=== PATIENT | female | born 2000 | race Caucasian/White ===

== ENCOUNTER 2023-01-22 07:56 | Emergency (ER) | payer OTHER, SELFPAY ==
[2023-01-22 08:00] VITALS: BP 184/87; PULSE 56; RESP 20; TEMP 36.5; O2SAT 98; BMI 33.7
--- NOTE | 2023-01-22 08:15 | ED_ITS ---
HPI - Abdominal Pain General Chief Complaint: Abdominal Pain Stated Complaint: FLANK PAIN Time Seen by Provider: 01/22/23 08:10 Source: patient Mode of arrival: walk-in Limitations: no limitations History of Present Illness HPI narrative: 22-year-old female presents for left-sided abdominal pain. It began yesterday and she saw some blood in her urine yesterday. She believes she may be passing a kidney stone. No injury fever vomiting constipation or diarrhea. No dysuria. She has very minimal left flank pain. The pain is mild to moderate. Related Data Home Medications Medication Instructions Recorded Confirmed dextroamphetamine-amphetamine 15 15 mg PO BID 01/22/23 01/22/23 mg tablet Allergies Allergy/AdvReac Type Severity Reaction Status Date / Time codeine Allergy Severe Hives Verified 01/22/23 08:05 Review of Systems ROS Narrative A ten point review of systems is negative except as noted above. [facility] Medical History (Updated 01/22/23 @ 09:48 by Brody White MD) History of kidney stones ?Z87.442 - Personal history of urinary calculi (ICD-10) Social History Smoking status: Light tobacco smoker Exam Narrative Exam Narrative: Nurses note and vital signs reviewed and patient is not hypoxic. General: The patient appears well and in no apparent distress. Patient is resting comfortably on cart. Skin: Warm, dry, no pallor noted. There is no rash noted. Head: Normocephalic, atraumatic Eye: Normal conjunctiva, no drainage Ears, Nose, Mouth, and Throat: oral mucosa is moist. Nares patent. Cardiovascular: Regular Rate and Rhythm Respiratory: Patient is in no distress, no accessory muscle use, lungs are clear to auscultation, no wheezing, rales or rhonchi Back: non-tender, no CVA tenderness bilaterally to percussion. GI: no tenderness to palpation, no masses appreciated. No rebound, guarding, or rigidity noted. Musculoskeletal: The patient has no evidence of calf tenderness, no pitting edema, symmetrical pulses noted bilaterally Neurological: A&O, normal speech Psychiatric: Cooperative Constitutional Vital Signs, click to edit/add: Last Vital Signs Temp 97.7 F 01/22/23 08:00 Pulse 56 L 01/22/23 08:00 Resp 20 01/22/23 08:00 BP 184/87 H 01/22/23 08:00 Pulse Ox 98 01/22/23 08:00 O2 Del Method Room Air 01/22/23 08:00 Course Vital Signs Vital signs: Vital Signs Temperature 97.7 F 01/22/23 08:00 Pulse Rate 56 L 01/22/23 08:00 Respiratory Rate 20 01/22/23 08:00 Blood Pressure 184/87 H 01/22/23 08:00 Pulse Oximetry 98 01/22/23 08:00 Oxygen Delivery Method Room Air 01/22/23 08:00 Temperature 97.7 F 01/22/23 08:00 Pulse Rate 56 L 01/22/23 08:00 Respiratory Rate 20 01/22/23 08:00 Blood Pressure 184/87 H 01/22/23 08:00 Pulse Oximetry 98 01/22/23 08:00 Oxygen Delivery Method Room Air 01/22/23 08:00 MDM - Abdominal Pain MDM Narrative Medical decision making narrative: CT does not show any ureteral stones or hydronephrosis. She has punctate stones bilaterally and a 5 mm stone and then 8 mm stone in the left kidney. She's not . She is being discharged home and will follow-up with her urologist. Treatment diagnosis and follow-up were discussed with the patient. Differential Diagnosis Differential diagnosis: Likely abdominal pain, constipation, diverticulitis and gastroenteritis Lab Data Attestation: I reviewed the patient's lab results. Labs: Lab Results 01/22/23 Range/Units 08:10 Urine Color Lt. yellow (YELLOW) Urine Clarity Clear (CLEAR) Urine pH 6.0 (5.0-9.0) Ur Specific [place] 1.010 (1.005-1.025) Urine Protein Negative (NEG/TRACE) mg/dL Urine Glucose (UA) Negative (NEGATIVE) mg/dL Urine Ketones Negative (NEGATIVE) mg/dL Urine Occult Blood Moderate A (NEGATIVE) Urine Nitrite Negative (NEGATIVE) Urine Bilirubin Negative (NEGATIVE) Urine Urobilinogen 0.2 (0.2-1.0) EU/dL Ur Leukocyte Esterase Negative (NEGATIVE) Urine RBC 0-2 (0-2) #/HPF Urine WBC None seen (NONE SEEN) #/HPF Ur Squamous Epith Cells Rare (NONE/RARE) #/LPF Urine Crystals None seen (None Seen) #/HPF Urine Bacteria Trace A (NONE SEEN) #/HPF Urine Casts None seen (NONE SEEN) #/LPF Urine Mucus None seen (NONE SEEN) Urine HCG, Qual Negative (NEGATIVE) Imaging Data CT scan - abdomen: Radiologist's impression: Procedure: CT abdomen pelvis wo con EXAM: CT abdomen pelvis wo con HISTORY: left flank pain, r/o stone COMPARISON: CT abdomen and pelvis 12/22/2019.. TECHNIQUE: Axial soft tissue windows of the abdomen and pelvis with coronal and sagittal reformats. Findings: Lack of intravenous contrast limits evaluation. ABDOMEN: There is fatty infiltration of the liver. The gallbladder, spleen, pancreas, and adrenal glands are unremarkable. Punctate nonobstructing bilateral renal stones. In addition, within the lower pole of the left kidney there are nonobstructing 0.5 and 0.8 cm stones. No renal collecting system dilatation bilaterally. The bilateral ureters are nondilated. Evaluation of the bowel is limited given the absence of oral contrast. No bowel obstruction. The appendix is nondilated. The aorta is normal caliber. No enlarged abdominal lymph nodes or free abdominal fluid. Pelvis: Unremarkable bladder. The uterus is present and unremarkable within the limits of CT. No enlarged pelvic lymph nodes or free pelvic fluid. No aggressive sclerotic or lytic osseous lesions. IMPRESSION: 1. Nonobstructing bilateral renal stones. 2. Fatty liver. Electronically authenticated by: SVEN MARTIN Date: 01/22/2023 09:07 Discharge Plan Discharge Chief Complaint: Abdominal Pain Clinical Impression: Renal colic on left side Patient Disposition: Home, Self-Care Time of Disposition Decision: 09:48 Condition: Good Mode of Transportation: Private Vehicle Prescriptions / Home Meds: No Action dextroamphetamine-amphetamine 15 mg tablet 15 mg PO BID Instructions: Renal Colic (ED) Additional Instructions: Follow-up with Dr. Claros Stand Alone Forms: Portal Instructions Referrals: Leticia Young MD [Primary Care Provider] - 1 week
--- NOTE | 2023-01-22 08:24 | CT_ITS ---
The [address] [address] Patient Name: ABHI RYDER MRN: [id number] date: 2000 Sex: F Assigned Patient Location: ER Current Patient Location: ER Accession/Order Number: [id number] Exam Date: 01/22/2023 08:38 Report Date: 01/22/2023 09:07 At the request of: LULY NUNES Procedure: CT abdomen pelvis wo con EXAM: CT abdomen pelvis wo con HISTORY: left flank pain, r/o stone COMPARISON: CT abdomen and pelvis 12/22/2019.. TECHNIQUE: Axial soft tissue windows of the abdomen and pelvis with coronal and sagittal reformats. Findings: Lack of intravenous contrast limits evaluation. ABDOMEN: There is fatty infiltration of the liver. The gallbladder, spleen, pancreas, and adrenal glands are unremarkable. Punctate nonobstructing bilateral renal stones. In addition, within the lower pole of the left kidney there are nonobstructing 0.5 and 0.8 cm stones. No renal collecting system dilatation bilaterally. The bilateral ureters are nondilated. Evaluation of the bowel is limited given the absence of oral contrast. No bowel obstruction. The appendix is nondilated. The aorta is normal caliber. No enlarged abdominal lymph nodes or free abdominal fluid. Pelvis: Unremarkable bladder. The uterus is present and unremarkable within the limits of CT. No enlarged pelvic lymph nodes or free pelvic fluid. No aggressive sclerotic or lytic osseous lesions. CT/CT abdomen pelvis wo con IMPRESSION: 1. Nonobstructing bilateral renal stones. 2. Fatty liver. Electronically authenticated by: SVEN MARTIN Date: 01/22/2023 09:07
[2023-01-22 08:29] LABS: Bilirubin Urine NEGATIVE (NEGATIVE); Blood Urine MODERATE (NEGATIVE); Clarity Urine CLEAR (CLEAR); Color Urine LT. YELLOW (YELLOW); Glucose Urine UA NEGATIVE (NEGATIVE); Ketones Urine NEGATIVE (NEGATIVE); Leukocyte Esterase Urine NEGATIVE (NEGATIVE); Nitrite Urine NEGATIVE (NEGATIVE); Protein Urine NEGATIVE (NEG/TRACE); Urobilinogen Urine 0.2 EU/dL (0.2-1.0)
[2023-01-22 08:31] LABS: HCG Qualitative Urine* NEGATIVE (NEGATIVE)
[2023-01-22 08:50] LABS: Bacteria Urine TRACE #/HPF (NONE SEEN); Cast Seen? NONE SEEN #/LPF (NONE SEEN); Crystals Seen? None Seen #/HPF (None Seen); Mucus Urine NONE SEEN (NONE SEEN); RBC Urine 0-2 #/HPF (0-2); Squamous Epithelial Cell Urine RARE #/LPF (NONE/RARE); WBC Urine NONE SEEN #/HPF (NONE SEEN)
[2023-01-22 10:06] VITALS: BP 160/80
== END 2023-01-22 10:09 | disposition home or self-care (01) ==
PROVIDERS: Emergency Provider Emergency Medicine; PCP Family Medicine
DX: N23 Unspecified renal colic (principal); Z87.442 Personal history of urinary calculi; F17.200 Nicotine dependence, unspecified, uncomplicated
CPT/HCPCS: 74176; 81001; 84703; 99284

== ENCOUNTER 2023-01-23 19:28 | Emergency (ER) | payer OTHER, SELFPAY ==
[2023-01-23 19:46] VITALS: BP 142/93; PULSE 109; RESP 18; TEMP 36.6; O2SAT 98; BMI 33.8
--- NOTE | 2023-01-23 21:17 | ED.GENADUL1 ---
HPI - General Adult General Chief complaint: Headache Stated complaint: HEADACHE Time Seen by Provider: 01/23/23 19:32 Source: patient Mode of arrival: walk-in Limitations: no limitations History of Present Illness HPI narrative: Patient is a 22-year-old female who presents to the emergency department for a left frontal/temporal headache that began approximately 4 hours ago. She has a history of migraines and states the location of this headache is similar. She states she is more nauseous with this headache than she typically is. She has had no fevers, visual changes, peripheral paresthesias, neck pain. She denies possibility of . She was seen in this emergency department 2 days ago when she thought she was passing a kidney stone, she was not discharged home on any medications. She took ibuprofen prior to arrival without improvement. Related Data Home Medications Medication Instructions Recorded Confirmed dextroamphetamine-amphetamine 15 15 mg PO BID 01/22/23 01/22/23 mg tablet Previous Rx's Medication Instructions Recorded ketorolac 10 mg tablet 10 mg PO TID PRN pain #10 tabs 01/23/23 ondansetron 4 mg disintegrating 4 mg PO Q6H PRN nausea and 01/23/23 tablet vomiting #12 tabs Allergies Allergy/AdvReac Type Severity Reaction Status Date / Time codeine Allergy Severe Hives Verified 01/23/23 19:51 Review of Systems ROS Constitutional Denies: fever or chills Ears, nose, mouth, and throat Denies: throat pain or nasal congestion Respiratory Reports: cough Gastrointestinal Reports: nausea; Denies: vomiting Genitourinary Denies: painful urination Musculoskeletal Denies: back pain or neck pain Integumentary/Breast Denies: rash Neurological Reports: headache; Denies: numbness in extremities or weakness in extremities Hematologic/Lymphatic Denies: easy bruising PFSH PFS Medical History (Updated 01/23/23 @ 22:14 by DAKSHA Correa) History of kidney stones ?Z87.442 - Personal history of urinary calculi (ICD-10) Social History Smoking status: Unknown if ever smoked Exam Narrative Exam Narrative: Gen.: Awake, alert, in no distress Head: Normocephalic, atraumatic ENT: Moist mucous membranes; no nuchal rigidity Respiratory: No respiratory distress, lungs clear bilaterally Cardio: Regular rate and rhythm Extremities: Moves extremities equally Psych: Normal mood and affect Neuro: No focal neuro deficit Skin: Warm, dry, intact Constitutional Vital Signs, click to edit/add: Last Vital Signs Temp 97.8 F 01/23/23 19:46 Pulse 109 H 01/23/23 19:46 Resp 18 01/23/23 19:46 BP 142/93 H 01/23/23 19:46 Pulse Ox 98 01/23/23 19:46 O2 Del Method Room Air 01/23/23 19:46 Course Vital Signs Vital signs: Vital Signs Temperature 97.8 F 01/23/23 19:46 Pulse Rate 109 H 01/23/23 19:46 Respiratory Rate 18 01/23/23 19:46 Blood Pressure 142/93 H 01/23/23 19:46 Pulse Oximetry 98 01/23/23 19:46 Oxygen Delivery Method Room Air 01/23/23 19:46 Temperature 97.8 F 01/23/23 19:46 Pulse Rate 109 H 01/23/23 19:46 Respiratory Rate 18 01/23/23 19:46 Blood Pressure 142/93 H 01/23/23 19:46 Pulse Oximetry 98 01/23/23 19:46 Oxygen Delivery Method Room Air 01/23/23 19:46 Medical Decision Making MDM Narrative Medical decision making narrative: Patient was medicated with IV fluids, Reglan, Benadryl, Toradol. She was reevaluated and reports she is feeling better, she just feels tired from the medications. She tolerated water with no vomiting in the ER. She states she feels well enough to go home. She will be discharged home with Zofran and Toradol. Follow-up with PCP and return to the emergency department if symptoms change or worsen. Patient appears well-hydrated and nontoxic at discharge. Medical Records Medical records reviewed: Yes I reviewed the patient's medical records Discharge Plan Discharge Chief Complaint: Headache Clinical Impression: Headache Patient Disposition: Home, Self-Care Time of Disposition Decision: 22:13 Condition: Good Prescriptions / Home Meds: New ketorolac 10 mg tablet 10 mg PO TID PRN (Reason: pain) Qty: 10 0RF ondansetron 4 mg tablet,disintegrating 4 mg PO Q6H PRN (Reason: nausea and vomiting) Qty: 12 0RF No Action dextroamphetamine-amphetamine 15 mg tablet 15 mg PO BID Instructions: Acute Headache (DC) Stand Alone Forms: Portal Instructions Referrals: Leticia Young MD [Primary Care Provider] - 1 week Discharge Date/Time: 01/23/23 22:37
[2023-01-23] MEDS: DIPHENHYDRAMINE HCL 50 MG/ML (1ML) VIAL 25 MG IV (21:46)
[2023-01-23] MEDS: 0.9 % SODIUM CHLORIDE 1,000 ML 999 ML IV (21:46)
[2023-01-23] MEDS: KETOROLAC TROMETHAMINE 30 MG/ML VIAL IVP (21:46)
[2023-01-23] MEDS: METOCLOPRAMIDE HCL 10 MG/2 ML VIAL INJ (21:47)
== END 2023-01-23 22:37 | disposition home or self-care (01) ==
PROVIDERS: Emergency Provider Emergency Medicine; PCP Family Medicine
DX: R51.9 Headache, unspecified (principal); Z79.899 Other long term (current) drug therapy; Z87.442 Personal history of urinary calculi
CPT/HCPCS: 96372; 96374; 96375; 99284

== ENCOUNTER 2023-03-19 08:03 | Outpatient (OUT) | payer OTHER, SELFPAY ==
--- OUTSIDE RECORDS SUMMARY | 2023-03-19 08:05 | XMS_ITS | CCD ---
Author Name Unknown Address [facility] [address] [place] [id number] Organization [facility] Care Team Providers Care Crystalizer Tender Name Role Phone DenaColumba Unavailable ANTOINE CASTELLANOS Attending Unavailable Leticia Dill Unavailable LETICIA DILL Primary Care Unavailable PREET, DR SIMRAN Alexander Consulting Unavailabl e REINECK, DR SIMRAN Alexander Attending Unavailabl e PREET, DR SIMRAN Alexander Admitting Unavailabl e LETICIA DILL E Primary Care Unavailable JOSE ., DR GAIL Mcwilliams Attending Unavailable JOSE ., DR GAIL Mcwilliams Admitting Unavailable FITZGERALDRL ROGERS Consulting Unavailable FUENTES LETICIA E Admitting Unavailable FUENTES LETICIA E Primary Care Unavailable LETICIA DILL Consulting Unavailable LETICIA DILL Attending Unavailable Perry ESCOBAR Attending Unavailable Allergies Allergy Classification Reported Allergen(s) Allergy Type Date of Onset Reaction(s) Facility (17 sources) Codeine; Translations: [CODEINE] Drug Allergy 9 puffy et itchy [facility] Repository (1 source) Codeine Drug Allergy 5 [facility] Repository (1 source) patient allergy list reviewed by nurse or physicia Propensity to adverse reactions 8 Comment:Done [employer] Other (1 source) Allergies Reconciled Propensity to adverse reactions Unknown [employer] Other Medications Current Medications Medication Drug Class(es) Dates Sig (Normalized) Sig (Original) Amphetamine / Dextroamphetamine (5 sources) Central Nervous System Stimulant Adderall XR Active amphetamine aspartate 3.75 mg / amphetamine sulfate 3.75 mg / dextroamphetamine saccharate 3.75 mg / dextroamphetamine sulfate 3.75 mg oral tablet (16 sources) Central Nervous System Stimulant Start: 03-11-2023 take 1 tablet by mouth every twelve hours Adderall 15 MG 1 tablet Orally Twice a day for 30 days Feb, Active Start: 01-29-2023 take 1 tablet by umesh every twelve hours Adderall 15 MG 1 tablet Orally Twice a day for 30 days Jan, Active Start: 11-16-2022 take 1 tablet by umesh th every twelve hours Adderall 15 MG 1 tablet Orally Twice a day for 30 days Oct, Active Start: 07-18-2022 take 1 tablet by umesh th every twelve hours Adderall 10 MG 1 tablet Orally Twice a day for 30 days June, Active Start: 06-15-2022 take 1 tablet by umesh th every twelve hours Adderall 10 MG 1 tablet Orally Twice a day for 30 days May, Active Start: 05-18-2022 take 1 tablet by umesh th every twelve hours Adderall 10 MG 1 tablet Orally Twice a day for 30 days Apr, Active Start: 04-10-2022 take 1 capsule by mo [facility] every twenty-four hours Adderall XR 25 MG 1 capsule Orally Once a day for 30 days Mar, Active famotidine 20 mg oral tablet (4 sources) Histamine-2 Receptor Antagonist Start: 01-29-2023 take 1 tablet by mouth every twenty-four hours Famotidine 20 MG 1 tablet at bedtime as needed Orally Once a day for 30 day(s) Jan, Active ibuprofen 800 mg oral tablet (10 sources) Nonsteroidal Anti-inflammatory Drug take 1 tablet by mouth every eight hours at mealtime Ibuprofen 800 MG TAKE 1 TABLET BY MOUTH EVERY 8 HOURS WITH FOOD OR MILK NEEDED 30 for 30 Active 24 hr metoprolol succinate 25 mg extended release oral tablet (4 sources) beta-Adrenergic Ravin Start: 01-29-2023 take 1 tablet by mouth every twenty-four hours Metoprolol Succinate ER 25 MG 1 tablet Orally Once a day for 30 day(s) Jan, Active omeprazole 20 mg delayed release oral capsule (4 sources) Proton Pump Inhibitor Start: 12-07-2022 take 1 capsule by mouth once daily Omeprazole 20 MG 1 capsule 30 minutes before morning meal Orally Once a day for 30 day(s) Nov, Active SUMAtriptan 50 mg oral tablet (5 sources) Serotonin-1b and Serotonin-1d Receptor Agonist Start: 06-15-2022 take 1 tablet by mouth every two hours as needed, then take 1 tablet by mouth twice daily as needed SUMAtriptan Succinate 50 MG 1 tablet at least 2 hours between doses as needed Orally Twice a day prn for 30 days May, Active SUMAtriptan Succ inate 50 MG TAKE 1 TABLET BY MOUTH ONCE DAILY. MAY REPEAT AT LEAST 2 HOURS BETWEEN DOSES NEEDED for 30 Active tiZANidine 4 mg oral tablet (6 sources) Central alpha-2 Adrenergic Agonist Start: 05-18-2022 take 1 tablet by mouth once daily at bedtime as needed tiZANidine HCl 4 MG 1 tablet as needed Orally qhs for 30 days Apr, Active Problems Active Problems Problem Classification Problem Date Documented Date Episodic/Chronic Abdominal pain (15 sources) Abdominal pain; Translations: [Unspecified abdominal pain] Onset: 02-28-2017 Episodic Anxiety disorders (13 sources) Mixed anxiety and depressive disorder; Translations: [Anxiety disorder, unspecified] Resolved: 11-17-2020 Chronic Attention-deficit, conduct, and disruptive behavior disorders (1 source) Attention deficit hyperactivity disorder; Translations: [Attention-deficit hyperactivity disorder, unspecified type] Onset: 02-13-2013 Chronic Blindness and vision defects (1 source) Visual impairment; Translations: [Unspecified visual loss] Onset: 12-26-2016 Chronic Blindness and vision defects (1 source) Unspecified visual disturbance Episodic Calculus of urinary tract (17 sources) Kidney stone; Translations: [Calculus of kidney] Episodic Conditions associated with dizziness or vertigo (3 sources) Dizziness and giddiness; Translations: [Dizziness and giddiness] Onset: 02-01-2022 Episodic Contraceptive and procreative management (2 sources) Surveillance of depot contraception done; Translations: [Encounter for surveillance of injectable contraceptive] Episodic Disorders usually diagnosed in infancy, childhood, or adolescence (16 sources) Adult attention deficit hyperactivity disorder ; Translations: [Other specified behavioral and emotional disorders with onset usually occurring in childhood and adolescence] Chronic Early or threatened labor (1 source) Premature/false labor; Translations: [ labor without delivery, unspecified trimester] Episodic Esophageal disorders (19 sources) Gastroesophageal reflux disease; Translations: [Gastro-esophageal reflux disease without esophagitis] Onset: 12-03-2017 Chronic Essential hypertension (6 sources) Essential hypertension; Translations: [Essential (primary) hypertension] Chronic Genitourinary symptoms and ill-defined conditions (4 sources) Dysuria; Translations: [Dysuria] Resolved: 11-17-2020 Episodic Headache; including migraine (4 sources) Headache; including migraine; Translations: [HEADACHE UNSPECIFIED] Onset: 08-31-2021 Hypertension complicating ; childbirth and the puerperium (1 source) Pre-eclampsia; Translations: [Mild to moderate pre-eclampsia, unspecified trimester] Episodic Inflammation; infection of eye (except that caused by tuberculosis or sexually transmitteddisease) (3 sources) Conjunctivitis; Translations: [Unspecified conjunctivitis] Onset: 03-05-2017 Resolved: 10-01-2018 Episodic Inflammatory diseases of female pelvic organs (1 source) Acute vaginitis; Translations: [Acute vaginitis] Episodic Menstrual disorders (20 sources) Menorrhagia; Translations: [Excessive and frequent menstruation with regular cycle] Onset: 05-18-2022 Resolved: 11-17-2020 Chronic Other aftercare (1 source) Long-term current use of drug therapy; Translations: [Other terminal clerk (current) drug therapy] Episodic Other circulatory disease (1 source) Elevated blood-pressure reading without diagnosis of hypertension; Translations: [Elevated blood-pressure reading, without diagnosis of hypertension] Episodic Other complications of ; puerperium affecting management of mother (1 source) Complication of the puerperium; Translations: [Other complications of the puerperium, not elsewhere classified] Episodic Other complications of (1 source) Vomiting of ; Translations: [Vomiting of , unspecified] Episodic Other complications of (1 source) Urinary tract infection in ; Translations: [Unspecified infection of urinary tract in , unspecified trimester] Episodic Other complications of (1 source) Finding related to ; Translations: [Other specified related conditions, unspecified trimester] Episodic Other complications of (1 source) Other maternal infectious and parasitic diseases complicating , unspecified trimester; Translations: [Other maternal infectious and parasitic diseases complicating , unspecified trimester] Episodic Other ear and sense organ disorders (1 source) Impacted cerumen; Translations: [Impacted cerumen, bilateral] Episodic Other female genital disorders (1 source) Noninflammatory disorder of the vagina; Translations: [Other specified noninflammatory disorders of vagina] Episodic Other nutritional; endocrine; and metabolic disorders (2 sources) Obese class I; Translations: [Body mass index (BMI) 31.0-31.9, adult] Chronic Other nutritional; endocrine; and metabolic disorders (1 source) Body mass index 30+ - obesity; Translations: [Body mass index (BMI) 30.0-30.9, adult] Chronic Other nutritional; endocrine; and metabolic disorders (1 source) Body mass index 25-29 - overweight; Translations: [Body mass index (BMI) 29.0-29.9, adult] Episodic Other and delivery including normal (6 sources) Delivery normal; Translations: [Encounter for full-term uncomplicated delivery] Resolved: 10-01-2018 Episodic Other screening for suspected conditions (not mental disorders or infectious disease) (2 sources) Urine test negative; Translations: [Encounter for test, result negative] Episodic Other upper respiratory infections (5 sources) Acute pharyngitis, unspecified; Translations: [Acute pharyngitis] Onset: 02-13-2013 Resolved: 02-09-2021 Episodic Residual codes; unclassified (1 source) Gestation period, 36 weeks; Translations: [36 weeks gestation of ] Episodic Residual codes; unclassified (1 source) Gestation period, 34 weeks; Translations: [34 weeks gestation of ] Episodic Residual codes; unclassified (1 source) Gestation period, 35 weeks; Translations: [35 weeks gestation of ] Episodic Residual codes; unclassified (1 source) Gestation period, 11 weeks; Translations: [11 weeks gestation of ] Episodic Spondylosis; intervertebral disc disorders; other back problems (13 sources) Low back pain; Translations: [Lumbar pain] Onset: 04-08-2017 Episodic Substance-related disorders (1 source) Nicotine dependence, other tobacco product, uncomplicated; Translations: [NICOTINE DEPEND OTH TOB PROD UNCOMP] Onset: 09-04-2021 Chronic Superficial injury; contusion (1 source) Nonvenomous insect bite of trunk without infection; Translations: [Insect bite (nonvenomous) of abdominal wall, initial encounter] Episodic Syncope (11 sources) Syncope and collapse; Translations: [Syncope and collapse] Episodic Urinary tract infections (1 source) Urinary tract infectious disease; Translations: [Urinary tract infection, site not specified] Episodic Viral infection (1 source) Verruca vulgaris; Translations: [Other viral warts] Episodic Past or Other Problems Problem Classification Problem Date Documented Date Episodic/Chronic Administrative/social admission (1 source) Stress; Translations: [Other psychological or physical stress, not elsewhere classified] Onset: 02-28-2017 Episodic Headache; including migraine (1 source) Migraine with aura; Translations: [Migraine with aura, not intractable, without status migrainosus] Resolved: 11-17-2020 Chronic Headache; including migraine (1 source) Headache; Translations: [Headache] Onset: 12-26-2016 Episodic Hypertension complicating ; childbirth and the puerperium (1 source) Unspecified maternal hypertension, complicating the puerperium; Translations: [Unspecified maternal hypertension, complicating the puerperium] Resolved: 11-17-2020 Chronic Immunizations and screening for infectious disease (2 sources) Contact with and (suspected) exposure to other viral communicable diseases; Translations: [Sexually transmitted infectious disease] Onset: 02-09-2021 Resolved: 02-09-2021 Episodic Malaise and fatigue (1 source) Malaise and fatigue; Translations: [Other malaise and fatigue] Onset: 03-24-2014 Episodic Mycoses (1 source) Candidiasis; Translations: [Candidiasis, unspecified] Resolved: 08-20-2018 Episodic Other complications of (1 source) Complication occurring during ; Translations: [Other specified related conditions, second trimester] Resolved: 10-01-2018 Episodic Other connective tissue disease (1 source) Pain in forearm; Translations: [Pain in joint, forearm] Onset: 08-23-2017 Episodic Other female genital disorders (1 source) Abnormal uterine bleeding; Translations: [Abnormal uterine and vaginal bleeding, unspecified] Resolved: 11-17-2020 Chronic Other non-traumatic joint disorders (1 source) Arthralgia of the ankle and/or foot; Translations: [Pain in unspecified ankle and joints of unspecified foot] Onset: 07-21-2013 Episodic Other skin disorders (1 source) Acne vulgaris; Translations: [Acne vulgaris] Resolved: 11-17-2020 Episodic Other upper respiratory infections (1 source) Chronic sinusitis; Translations: [Chronic sinusitis, unspecified] Resolved: 11-17-2020 Chronic Residual codes; unclassified (1 source) Insomnia; Translations: [Insomnia, unspecified] Onset: 03-05-2017 Episodic Residual codes; unclassified (1 source) Gestation period, 15 weeks; Translations: [15 weeks gestation of ] Resolved: 07-23-2018 Episodic Residual codes; unclassified (1 source) Gestation period, 33 weeks; Translations: [33 weeks gestation of ] Resolved: 11-05-2018 Episodic Residual codes; unclassified (1 source) Gestation period, 29 weeks; Translations: [29 weeks gestation of ] Resolved: 10-15-2018 Episodic Residual codes; unclassified (1 source) Gestation period, 31 weeks; Translations: [31 weeks gestation of ] Resolved: 11-05-2018 Episodic Residual codes; unclassified (1 source) Gestation period, 25 weeks; Translations: [25 weeks gestation of ] Resolved: 09-17-2018 Episodic Residual codes; unclassified (1 source) Gestation period, 27 weeks; Translations: [27 weeks gestation of ] Resolved: 10-01-2018 Episodic Residual codes; unclassified (1 source) Gestation period, 19 weeks; Translations: [19 weeks gestation of ] Resolved: 08-20-2018 Episodic Residual codes; unclassified (1 source) Gestation period, 23 weeks; Translations: [23 weeks gestation of ] Resolved: 08-20-2018 Episodic Substance-related disorders (1 source) Drug-induced insomnia; Translations: [Insomnia due to medical condition classified elsewhere] Onset: 09-19-2017 Episodic Unclassified (1 source) Homeless family Z59.00 Unclassified (1 source) Vaccine product containing only acellular Bordetella pertussis and Clostridium tetani and Corynebacterium diphtheriae antigens (medicinal product); Translations: [Zihnukusoe-swpjzxe-y ertussis, combined [DTP] [DtaP]] Onset: 11-02-2014 Unclassified (1 source) Other specified indication for care or intervention related to labor and delivery, unspecified as to episode of care; Translations: [Other specified indication for care or intervention related to labor and delivery, unspecified as to episode of care] Results Test Name Value Interpretation Reference Range Facil ity ED Note-Physicianon 02-05-20 ED Note-Physician [id number] Normal [facility] PREG QUANT HCGon 05-18-2022 HCG QUANT <[address] [facility] Comment on above: Performed By: #### P REGQNT #### [facility] [address] [address] [address] Michael Vigil HCG RANGE SEE BELOW Normal [facility] Comment on above: Result Comment: 5-50 0.2-1 WEEK 50-500 1-2 WEEKS 100-5,000 2-3 WEEKS 500-10,000 3-4 WEEKS 1,000-50,000 4-5 WEEKS 10,000-100,000 5-6 WEEKS 15,000-200,000 6-8 WEEKS 10,000-100,000 2-3 MONTHS Performed By: #### P REGQNT #### [facility] [address] [address] [address] Michael Vigil Office Visiton 02-01-2022 Follow-up visit [id number] Sunshine Ryder 2000 Date Provider Department Center 02/01/2022 ANTOINE GLEZ CARD [facility] Family History Problem Relation Age of Onset Hypertension Mother Heart attack Maternal Grandmother Heart attack Maternal Grandfather Stroke Maternal Grandfather Family Status - Relation Status Age at Mother Maternal Grandmother Maternal Grandfather Level of Service:46880 [place] OFFICE/OUTPATIENT NEW MODERATE MDM 45-59 MINUTES Reason for Visit and Comments: Dizziness [[id number]] Normal [facility] Orders Onlyon 02-01-2022 Orders Only [id number] Sunshine Ryder 2000 Provider Department Center 02/01/2022 APRIL COSME CARD Mar[facility] Family History Problem Relation Age of Onset Hypertension Mother Heart attack Maternal Grandmother Heart attack Maternal Grandfather Stroke Maternal Grandfather Family Status - Relation Status Age at Mother Maternal Grandmother Maternal Grandfather Normal [facility] CBC AUTO DIFFon 08-31-2021 BASO # 0.1 103/ul Normal 0.0-0.1 [facility] Comment on above: Performed By: #### C BC #### [facility] [address] [place] [address] Dr. Michael Vigil Basophils/100 WBC (Bld) 0.5 % Normal 0.2-2.0 [facility] Comment on above: Performed By: #### C BC #### [facility] [address] [place] [address] Dr. Michael Vigil EO # 0.1 103/ul Normal 0.0-0.7 [facility] Comment on above: Performed By: #### C BC #### [facility] [address] [place] [address] Dr. Michael Vigil Eosinophils/100 WBC (Bld) 1.3 % Normal 0.9-7.0 [facility] Comment on above: Performed By: #### C BC #### [facility] [address] [place] [address] Dr. Michael Vigil Erythrocyte distribution width (RBC) [Ratio] 12.5 % Normal 11.0-15.0 [facility] Comment on above: Performed By: #### C BC #### [facility] [address] [place] [address] Dr. Michael Vigil Hematocrit (Bld) [Volume fraction] 43.9 % Normal 36.0-48.0 [facility] Comment on above: Performed By: #### C BC #### [facility] [address] [place] [address] Dr. Michael Vigil Hemoglobin (Bld) [Mass/Vol] 14.7 g/dL Normal 12.0-16.0 [facility] Comment on above: Performed By: #### C BC #### [facility] [address] [place] [address] Dr. Michael Vigil IG # 0.03 10e3/ul Normal 0.00-0.03 [facility] Comment on above: Performed By: #### C BC #### [facility] [address] [place] [address] Dr. Michael Vigil IG % 0.3 % Normal 0.0-0.5 [facility] Comment on above: Performed By: #### C BC #### [facility] [address] [address] [address] Michael Vigil LYMPH # 3.0 103/ul Normal 1.2-3.8 [facility] Comment on above: Performed By: #### C BC #### [facility] [address] [place] [address] Dr. Michael Vigil Lymphocytes/100 WBC (Bld) 32.0 % Normal 20.5-60.0 [facility] Comment on above: Performed By: #### C BC #### [facility] [address] [place] [address] Dr. Michael Vigil MANUAL DIFF REQ NO Normal [facility] Comment on above: Performed By: #### C BC #### [facility] [address] [place] [address] Dr. Michael Vigil MCH (RBC) [Entitic mass] 30.2 pg Normal 26.7-34.0 [facility] Comment on above: Performed By: #### C BC #### [facility] [address] [place] [address] Dr. Michael Vigil MCHC (RBC) [Mass/Vol] 33.5 g/dL Normal 29.9-35.2 [facility] Comment on above: Performed By: #### C BC #### [facility] [address] [place] [address] Dr. Michael Vigil MCV (RBC) [Entitic vol] 90.1 fL Normal 81.0-99.0 [facility] Comment on above: Performed By: #### C BC #### [facility] [address] [place] [address] Dr. Michael Vigil MONO # 0.7 103/ul Normal 0.3-0.8 [facility] Comment on above: Performed By: #### C BC #### [facility] [address] [place] [address] Dr. Michael Vigil Monocytes/100 WBC (Bld) 7.8 % Normal 1.7-12.0 [facility] Comment on above: Performed By: #### C BC #### [facility] [address] [place] [address] Dr. Michael Vigil NEUT # 5.3 103/ul Normal 1.4-6.5 [facility] Comment on above: Performed By: #### C BC #### [facility] [address] [place] [address] Dr. Michael Vigil Neutrophils/100 WBC (Bld) 58.1 % Normal 43.0-75.0 [facility] Comment on above: Performed By: #### C BC #### [facility] [address] [place] [address] Dr. Michael Vigil Platelet mean volume (Bld) [Entitic vol] 10.3 fL Normal 9.5-13.5 [facility] Comment on above: Performed By: #### C BC #### [facility] [address] [place] [address] Dr. Michael Vigil PLT 292 103/ul Normal 150-450 [facility] Comment on above: Performed By: #### C BC #### [facility] [address] [place] [address] Dr. Michael Vigil RBC 4.87 106/ul Normal 4.20-5.40 [facility] Comment on above: Performed By: #### C BC #### [facility] [address] [place] [address] Dr. Michael Vigil WBC 9.2 103/ul Normal 4.0-11.0 [facility] Comment on above: Performed By: #### C BC #### [facility] [address] [place] [address] Dr. Michael Vigil PROF CHEM 8 (BAS METB)on Anion gap [Moles/Vol] 12.3 mmol/L Normal [facility] Comment on above: Performed By: #### B MP #### [facility] [address] [place] [address] Dr. Michael Vigil Calcium [Mass/Vol] 9.1 mg/dL Normal 8.5-10.1 [facility] Comment on above: Performed By: #### B MP #### [facility] [address] [place] [address] Dr. Michael Vigil Chloride [Moles/Vol] 106 mmol/L Normal 98-107 [facility] Comment on above: Performed By: #### B MP #### [facility] [address] [address] [address] Michael Vigil CO2 [Moles/Vol] 26.0 mmol/L Normal 21.0-32.0 [facility] Comment on above: Performed By: #### B MP #### [facility] [address] [address] [address] Michael Vigil Creatinine [Mass/Vol] 0.97 mg/dL Normal 0.55-1.02 [facility] Comment on above: Performed By: #### B MP #### [facility] [address] [place] [address] Dr. Michael Vigil EGFR-AF PAKISTANI >60 Normal >=60 [facility] Comment on above: Performed By: #### B MP #### [facility] [address] [address] [address] Michael Vigil EGFR-NON AF PAKISTANI >60 Normal >=60 [facility] Comment on above: Performed By: #### B MP #### [facility] [address] [address] [address] Michael Vigil Glucose [Mass/Vol] 96 mg/dL Normal 74-106 [facility] Comment on above: Performed By: #### B MP #### [facility] [address] [address] [address] Michael Vigil Potassium [Moles/Vol] 4.3 mmol/L Normal 3.5-5.1 [facility] Comment on above: Performed By: #### B MP #### [facility] [address] [address] [address] Michael Vigil Sodium [Moles/Vol] 140 mmol/L Normal 136-145 [facility] Comment on above: Performed By: #### B MP #### [facility] [address] [place] [address] Dr. Michael Vigil Urea nitrogen [Mass/Vol] 18.0 mg/dL Normal 6.4-19.3 [facility] Comment on above: Performed By: #### B MP #### [facility] [address] [address] [address] Michael Vigil Urea nitrogen/Creatinine [Mass ratio] 18.6 mg/mg Normal [facility] Comment on above: Performed By: #### B MP #### [facility] [address] [address] [address] Michael Vigil COVID Quick Testingon 2020 Result Negative [facility] Other Quick Strepon 02-09-2021 S. pyogenes Org specific cx Ql (Throat) Negative [employer] Other Quick Strep [employer] Other Vital Signs Date Time Vital Sign Value Performing Clinician Facility 01-29-2023 08:30-0500 Body weight 91.17 kg Leticia Dill Other [facility] [employer] Other 01-29-2023 08:30-0500 Diastolic blood pressure 84 mm[Hg] Leticia Dill Other [facility] Other 01-29-2023 08:30-0500 Systolic blood pressure 139 mm[Hg] Leticia Dill Other [facility] Other 07-18-2022 11:45-0400 Body height 160.02 cm Leticia Dill Other [facility] Other 07-18-2022 11:45-0400 Body mass index (BMI) [Ratio] 32.41 kg/m2 Leticia Dill Other [facility] Other 07-18-2022 11:45-0400 Body weight 83.01 kg Leticia Dill Other [facility] Other 07-18-2022 11:45-0400 Diastolic blood pressure 86 mm[Hg] Leticia Dill Other [facility] Other 07-18-2022 11:45-0400 Systolic blood pressure 145 mm[Hg] Leticia Dill Other [facility] Other 06-25-2022 15:45-0400 Body height 160.02 cm Leticia Dill Other [facility] Other 06-25-2022 15:45-0400 Body mass index (BMI) [Ratio] 31.7 kg/m2 Leticia Dill Other [facility] Other 06-25-2022 15:45-0400 Body weight 81.19 kg Leticia Dill Other [facility] Other 06-25-2022 15:45-0400 Diastolic blood pressure 80 mm[Hg] Leticia Dill Other [facility] Other 06-25-2022 15:45-0400 SaO2% (BldA) [Mass fraction] 99 % Leticia Dill Other [facility] Other 06-25-2022 15:45-0400 Systolic blood pressure 132 mm[Hg] Leticia Dill Other [facility] Other 02-09-2021 17:45-0500 Body height 160.02 cm Columba Fernandes Other [facility] Other 02-09-2021 17:45-0500 Body mass index (BMI) [Ratio] 33.65 kg/m2 Columba Fernandes Other [facility] [employer] Other 02-09-2021 17:45-0500 Body temperature 97.3 [degF] Columba Fernandes Other [facility] Other 02-09-2021 17:45-0500 Body weight 86.18 kg Columba Fernandes Other [facility] Other 02-09-2021 17:45-0500 Respiratory rate 18 /min Columba Fernandes Other [facility] Other 02-09-2021 17:45-0500 SaO2% (BldA) [Mass fraction] 99 % Columba Fernandes Other [facility] Other Encounters Encounter Date Encounter Type Care Provider Facility Start: 03-19-2023 ambulatory Perry ESCOBAR Facility :[facility] Start: 03-11-2023 End: 03-11-2023 ambulatory Leticia Dill Other [facility] Other Start: 03-11-2023 Telephone encounter Leticia Dill [facility] [place] Start: 02-22-2023 End: 02-22-2023 ambulatory Leticia Dill Other [facility] [employer] Other Start: 02-22-2023 Telephone encounter Leticia Dill [facility] [place] Start: 02-21-2023 End: 02-21-2023 ambulatory Leticia Dill Other [facility] Other Start: 02-21-2023 Telephone encounter Leticia Dill [facility] [place] Start: 01-29-2023 End: 01-29-2023 ambulatory Leticia Dill Other [facility] [employer] Other Start: 01-29-2023 Office outpatient visit 25 minutes Leticia Dill [facility] [place] Start: 11-16-2022 End: 11-16-2022 ambulatory Leticia Dill Other [facility] [employer] Other Start: 11-16-2022 Telephone encounter Leticia Dill [facility] [place] Start: 08-27-2022 End: 08-27-2022 ambulatory Leitcia Fuentes Other [facility] [employer] Other Start: 08-27-2022 Telephone encounter Leticia Dill [facility] [place] Start: 08-23-2022 End: 08-23-2022 ambulatory Leticia Dill Other [facility] [employer] Other Start: 08-23-2022 Telephone encounter Leticia Dill [facility] [place] Start: 07-18-2022 End: 07-18-2022 ambulatory Leticia Dill Other [facility] [employer] Other Start: 07-18-2022 Office outpatient visit 15 minutes Leticia Dill [facility] [place] Start: 06-25-2022 End: 06-25-2022 ambulatory Leticia Fuentes Other [facility] Other Start: 06-25-2022 Office outpatient visit 10 minutes Leticia Dill [facility] [place] Start: 05-18-2022 Telephone encounter Leticia Dill [facility] [place] Start: 05-18-2022 End: 05-19-2022 ambulatory LETICIA Mamie FUENTES [employer] Other Start: 04-10-2022 End: 04-10-2022 ambulatory Leticia Dill Other [facility] [employer] Other Start: 04-10-2022 Telephone encounter Leticia Dill [facility] [place] Start: 04-02-2022 End: 04-02-2022 ambulatory Leticia Dill Other [facility] Other Start: 04-02-2022 Telephone encounter Leticia Dill [facility] [place] Start: 03-30-2022 End: 03-30-2022 ambulatory Leticia Dill Other [facility] Other Start: 03-30-2022 Telephone encounter Leticia Dill [facility] [place] Start: 03-14-2022 ambulatory LETICIA Mamie FUENTES Facility :[facility] Start: 02-26-2022 End: 02-26-2022 ambulatory Leticia Dill Other [facility] Other Start: 02-26-2022 Telephone encounter Leticia DOMÍNGUEZ [facility] Start: 02-01-2022 End: 02-01-2022 ambulatory [facility] Start: 08-31-2021 End: 08-31-2021 ambulatory LETICIA Mamie FUENTES Facility:[facility] Start: 02-09-2021 End: 02-09-2021 ambulatory Columba Dena Other [employer] Other Start: 02-09-2021 Office outpatient visit 15 minutes Columba Fernandes [facility] Start: 12-02-2018 Well child visit Leticia Fuentes Other [employer] Other Start: 08-12-2018 End: 08-12-2018 Emergency department patient visit [facility] Procedures Date Procedure Procedure Detail Performing Clinician Start: 08-12-2018 POST OP SHOE Start: 03-14-2018 Health examination o f sub-group Leticia Fuentes Other End: 07-23-2018 screening Leticia Dill Other End: 08-20-2018 Diabetes mellitus screening Leticia Dill Other Insertion of intraut erine contraceptive device Leticia Dill Other visit Leticia Fuentes Other End: 06-29-2021 Removal of intrauterine device Leticia Dill Other Immunizations Immunization Date Immunization Notes Care Provider Barney lemus 11-02-2014 diphtheria, tetanus toxoids and acellular pertussis vaccine, unspecified formulation Leticia Dill Other [employer] Other Payers Date Payer Category Payer Private Health Insurance [id number] 2002 Unknown [id number] 2.16.84 [id number] 1980 Unknown [id number] 2.16.8 [id number] 1980 Unknown [id number] 2.16.84 [id number] 1980 Unknown [id number] 2.16.84 [id number] 1980 Unknown [id number] 2.16.8 [id number] 1959 Unknown [id number] 2.16.8 [id number] 1959 Unknown [id number] 2. [id number] Social History Date Type Detail Facility Sex Assigned At [employer] Other Clinical Notes 02-09-2021 to 03-11-2023 Note Date & Type Note Facility 03-11-2023 Evaluation note Encounter Date Diagnosis Assessment Notes Feb, Adult attention deficit disorder (ICD-10 - F98.8) [facility] [employer] Other 01-05-2024 Evaluation note* Encounter Date Diagnosis Assessment Notes Treatment Notes Treatment Clinical Notes Feb, Chronic GERD (ICD-10 - K21.9) [employer] Other 01-04-2024 Evaluation note* Encounter Date Diagnosis Assessment Notes Treatment Notes Treatment Clinical Notes Feb, Essential (primary) hypertension (ICD-10 - I10) [employer] Other 12-12-2023 Evaluation note* Encounter Date Diagnosis Assessment Notes Treatment Notes Treatment Clinical Notes Jan, Essential (primary) hypertension (ICD-10 - I10) Start low dose b-ravin to improve BP and less headaches. Jan, Chronic GERD (ICD-10 - K21.9) change to H2 ravin that should provide better results. Jan, Adult attention deficit disorder (ICD-10 - F98.8) Pt will take med for this chronic condition as prescribed for better results. Jan, URI, acute (ICD-10 - J06.9) Pt agrees symptoms are resolving Jan, Nephrolithiasis (ICD-10 - N20.0) Pt will contact Urology and let me know if they do not schedule her in the reasonable future. Notes continued hematuria. [employer] Other 09-29-2023 Evaluation note* Encounter Date Diagnosis Assessment Notes Treatment Notes Treatment Clinical Notes Oct, Adult attention deficit disorder (ICD-10 - F98.8) [employer] Other 05-31-2023 Evaluation note* Encounter Date Diagnosis Assessment Notes Treatment Notes Treatment Clinical Notes June, Adult attention deficit disorder (ICD-10 - F98.8) chronic problem, stable on present dose. June, Visual disturbance (ICD-10 - H53.9) Exam and presentation are very reassuring. Advise she take Tylenol for headache. She has been taking ibuprofen with moderate improvement. Patient adamantly denies any further visual symptoms. If symptoms recur or further problems we will refer her to a opthomologist [facility] [employer] Other 05-08-2023 Evaluation note* Encounter Date Diagnosis Assessment Notes Treatment Notes Treatment Clinical Notes June, Homeless family (ICD-10 - Z59.00) Note provided. States she needs this to get help with housing through [employer]. [employer] Other 12-17-2022 Note-she said this resolved with medication but it was stopped per her neurologist -follow up as scheduled with neurologist group -continue to monitor heart rate and blood pressure during events and daily [facility]12-17-2022 Note-she states they happen frequently so I will order a holter monitor for now -[facility]- due to her age I suspect this is likely related to lack of endurance or exercise tolerane -we discussed lifestyle changes and adding an exercise regimen to her routie [facility]12-15-2022 NoteUT Cardiology Note [facility] Reason for visit: new patient for dizziness HPI: Sunshine Avendaño Riley is a 21 y.o. year old with past medical history of dizziness, palpitations. She presents to clinic today for evaluation of dizziness and presyncope symptoms. She has never actually been syncopal but has felt close. She does admit to vaping nicotine frequently as well as cannabis. She state she feels palpitations daily and thinks a holter monitor could catch an event. She lives a sedentary life and does not exercise. She does take adderal when she goes to work and she was made aware stimulants of any kind could exacerbation symptoms. She does get lightheaded if she gets up too fast from sitting position She denies chest pain and shortness of breath with symptom onset ECG - SR PMH: No past medical history on file. Patient Active Problem List Diagnosis Dizziness Palpitations Atypical chest pain CELAYA (dyspnea on exertion) PSH: No past surgical history on file. SH: Social Determinants of Health Tobacco Use: Not on file Alcohol Use: Not on file Financial Resource Strain: Not on file Food Insecurity: Not on file Transportation Needs: Not on file Physical Activity: Not on file Stress: Not on file Social Connections: Not on file Intimate Partner Violence: Not on file Depression: Not on file Housing Stability: Not on file Allergies: Allergies Allergen Reactions Luis Orozco Weight: 84.4kg Meds: Current Outpatient Medications on File Prior to Visit Medication Sig Dispense Refill amphetamine-dextroamphetamine XR (Adderall XR) 25 mg 24 hr capsule Take 25 mg by mouth in the morning. Do not crush or chew. ibuprofen 800 mg tablet every 6 (six) hours if needed. No current facility-administered medications on file prior to visit. Review of Systems Cardiovascular: Positive for chest pain, dyspnea on exertion, irregular heartbeat and palpitations. Respiratory: Positive for shortness of breath. Neurological: Positive for dizziness and light-headedness. All other systems reviewed and are negative. Physical Exam: Constitutional General Appearance: well-nourished, well-developed, appears stated age Level of Distress: comfortable Psychiatric Mental Status: alert, normal affect Orientation: oriented to time, place, and person Insight: good judgement Eyes Lids and Conjunctivae: non-injected, no xanthelasma ENMT Ears: no lesions on external ear Nose: no lesions on external nose Oropharynx: no cyanosis, no pallor Neck Neck: supple, trachea midline Carotid Arteries: bilateral normal upstroke, no bruits Jugular Veins: normal jugular venous pressure Thyroid: not enlarged Lungs Respiratory Effort: unlabored Chest Exam: normal curvature, no thoracic deformity Auscultation: clear, no wheezing, no rales, no rhonchi Cardiovascular Rate And Rhythm: regular Heart Sounds: normal S1, normal s2, no gallop Systolic Murmur: not heard Diastolic Murmur: not heard Extremities: no cyanosis, no edema, no peripheral signs of emboli Peripheral Pulses Radial Pulse: normal Abdomen Inspection and Palpation: soft, non distended, no bruit, non tender Musculoskeletal Inspection: no joint swelling Neurologic Gait: normal gait Skin Inspection and Palpation: warm and dry Nails: no clubbing Labs: @LABRESULTS@ No results found for: CHOLESTEROL TOTAL, HDL, LDL CALC, LDL DIRECT, TRIGLYCERIDES, TSH, T3 TOTAL, T4 TOTAL, THYROID PEROXIDASE AB, BNP, BNP, BNP EKG: No results found for this or any previous visit (from the past 4464 hour(s)). Echo: Stress test: Coronary angiogram: @CATH@ Diagnostic Imaging: No images are attached to the encounter. Assessment and Plan: CELAYA (dyspnea on exertion) -due to her age I suspect this is likely related to lack of endurance or exercise tolerane -we discussed lifestyle changes and adding an exercise regimen to her routie -she is going to try to cut back on vaping Palpitations -she states they happen frequently so I will order a holter monitor for now -she may need loop recorder Dizziness -she said this resolved with medication but it was stopped per her neurologist -follow up as scheduled with neurologist group -continue to monitor heart rate and blood pressure during events and daily Antoine Castellanos NP Cardiac Electrophysiology [facility]12-15-2022 NoteNew patient here to establish care. Ref from Dr. Dill for dizziness and palpitations. Says the dizziness has improved. Says she was told she had a heart murmur that she would grow out of as a child. Sometimes gets chest pain and SOB. She was preeclamptic with in 2019. Review of Systems Cardiovascular: Positive for chest pain, dyspnea on exertion, irregular heartbeat and palpitations. Respiratory: Positive for shortness of breath. Neurological: Positive for dizziness and light-headedness. All other systems reviewed and are negative.[facility] 02-09-2021 Evaluation note* Encounter Date Diagnosis Assessment Notes Treatment Notes Treatment Clinical Notes Jan, Contact with and (suspected) exposure to other viral communicable diseases (ICD-10 - Z20.828) Today test was performed in office. Results are currently negative. That does not mean that you will not develop COVID or do not currently have a low viral count of COVID. The rapid test works best if symptoms have been over 72 hours and the results can vary if you are asymptomatic There is a higher chance of false negative results to occur if testing is performed too soon. It is recommended that even if results are negative and you have been exposed to someone that has COVID that you follow current CDC recommendations. These can be found at CDC.GOV. Follow up with primary care provider if symptoms persist or do not improve *VIRAL URI HANOUT GIVEN ON OTC TREATMENTS, FOLLOW UP AND WHEN TO SEEK EMERGENCY TREATMENT Jan, Sore throat (ICD-10 - J02.9) Jan, Other Additional time spent conducting pre-visit phone call, screening for symptoms, instructions on social distancing, application and removal of PPE, and cleaning of examination room, equipment and supplies was preformed. Patient education given for testing methodology and results. Patient care instructions given in writting by [facility] document. [employer] Other Evaluation noteNo [facility] [employer] Other History general Narrative - Reported* Type Description Date Surgical History ADENOIDECTOMY Surgical History TONSILLECTOMY Hospitalization History SEE SURGICAL [employer] Other History general Narrative - Reported* Type Description Date Medical History Adult attention deficit disorder Medical History Lumbar pain Medical History Left flank discomfort Medical History Syncope and collapse Medical History Menorrhagia Medical History Kidney stone Medical History Anxiety and depression Medical History GERD (gastroesophageal reflux di sease) Surgical History ADENOIDECTOMY Surgical History TONSILLECTOMY Hospitalization History SEE SURGICAL [employer] Other Summary Purpose Family History No Family History Records FoundNo Family History Records FoundNo Family History Records FoundNo Family History Records Found Advance Directives No Advanced Directives Records FoundNo Advanced Directives Records FoundNo Advanced Directives Records FoundNo Advanced Directives Records Found Additional Source Comments INFORMATION SOURCE (unrecogn ized section and content) DATE CREATED AUTHOR 08/12/2018 [facility] DATE CREATED AUTHOR AUTHOR'S ORGANIZ ATION 02/08/2022 [facility] DATE CREATED AUTHOR AUTHOR'S ORGANIZ ATION 05/26/2022 [facility] DATE CREATED AUTHOR AUTHOR'S ORGANIZ ATION 03/17/2023 [facility] REASON FOR VISIT (unrecogniz ed section and content) #31 SILVER MALISSA, EXPOSURE, CO NGESTION, SORE THROAT, COVID Provider Visitprescription refillprescription refillAdderallPRESCRIPTION REFILLNo InformationDISCUSSIONFLOATERS IN LEFT EYE, DOES NOT HAVE AN EYE DOCTORRefillrefillrefillurirefillrefillRefill FOR RECORDS PERTAINING TO PATIENTS WHO ARE OR HAVE BEEN ENROLLED IN A CHEMICAL DEPENDENCY/SUBSTANCEABUSE PROGRAM, SOME INFORMATION MAY BE OMITTED. This clinical summary was aggregated from multiple sources. Caution should be exercised in using it in the provision of clinical care. This summary normalizes information from multiple sources, and as a consequence, information in this document may materially change the coding, format and clinical context of patient data. In addition, data may be omitted in some cases. CLINICAL DECISIONS SHOULD BE BASED ON THE PRIMARY CLINICAL RECORDS. [employer] provides no warranty or guarantee of the accuracy or completeness of information in this document.
--- NOTE | 2023-03-19 08:14 | XR_ITS ---
The [address] [address] Patient Name: ABHI RYDER MRN: [id number] date: 2000 Sex: F Assigned Patient Location: [facility] Current Patient Location: RAD Accession/Order Number: [id number] Exam Date: 03/19/2023 08:09 Report Date: 03/19/2023 09:14 At the request of: VIRAL ESCOBAR Procedure: XR abdomen 1V EXAM: XR abdomen 1V HISTORY: Kidney Stones N20.0 COMPARISON: None. TECHNIQUE: AP view of the abdomen. FINDINGS: Nonobstructive bowel gas pattern is noted. There are multiple left renal calculi, largest measuring up to 9 mm. The osseous structures are intact. XR/XR abdomen 1V IMPRESSION: Nonobstructive bowel gas pattern. Left nephrolithiasis. Electronically authenticated by: JESSENIA BESS Date: 03/19/2023 09:14
== END 2023-03-19 08:04 | disposition home or self-care (01) ==
LOC: RAD 08:03
PROVIDERS: PCP Family Medicine; Visit Provider Urology
DX: N20.0 Calculus of kidney (principal)
CPT/HCPCS: 74018

== ENCOUNTER 2023-03-19 20:20 | Outpatient (REF) | payer OTHER, SELFPAY ==
--- OUTSIDE RECORDS SUMMARY | 2023-03-19 20:24 | XMS_ITS | CCD ---
Author Name Unknown Address [facility] [address] [place] [id number] Organization [facility] Care Team Providers Care Relief Driller Name Role Phone DenaColumba Unavailable ANTOINE CASTELLANOS [...] [CODEINE] Drug Allergy 9 puffy et itchy [facility] Repository (1 source) Codeine Drug Allergy 5 [facility] Repository (1 source) patient allergy list reviewed by nurse or physicia Propensity to adverse reactions 8 Comment:Done [facility] Other (1 source) Allergies Reconciled Propensity to adverse reactions Unknown [facility] Other Medications Current Medications Medication Drug Class(es) [...] Start: 04-10-2022 take 1 capsule by mo [facility] every twenty-four hours Adderall XR 25 MG [...] current use of drug therapy; Translations: [Other director long term care (current) drug therapy] Episodic Other circulatory disease [...] and Corynebacterium diphtheriae antigens (medicinal product); Translations: [Vzfwbnqijg-auzlmck-i ertussis, combined [DTP] [DtaP]] Onset: 11-02-2014 Unclassified (1 source) Other specified indication for care or intervention related to labor and delivery, unspecified as to episode of care; Translations: [Other specified indication for care or intervention related to labor and delivery, unspecified as to episode of care] Results Test Name Value Interpretation Reference Range Facil ity ED Note-Physicianon 02-05-20 ED Note-Physician [id number] Normal [facility] PREG QUANT HCGon 05-18-2022 HCG QUANT <1 Normal [facility] Comment on above: Performed By: #### P REGQNT #### [facility] [address] [address] [address] Michael Vigil HCG RANGE SEE BELOW Normal [facility] Comment on above: Result Comment: 5-50 0.2-1 WEEK 50-500 1-2 WEEKS 100-5,000 2-3 WEEKS 500-10,000 3-4 WEEKS 1,000-50,000 4-5 WEEKS 10,000-100,000 5-6 WEEKS 15,000-200,000 6-8 WEEKS 10,000-100,000 2-3 MONTHS Performed By: #### P REGQNT #### [facility] [address] [address] [address] Michael Vigil Office Visiton 02-01-2022 Follow-up visit [id number] [place] Ryder 2000 Date Provider Department Center 02/01/2022 ANTOINE GLEZ CARD [facility] Family History Problem Relation Age of Onset Hypertension Mother Heart attack Maternal Grandmother Heart attack Maternal Grandfather Stroke Maternal Grandfather Family Status - Relation Status Age at Mother Maternal Grandmother Maternal Grandfather Level of Service:81664 SC OFFICE/OUTPATIENT NEW MODERATE MDM 45-59 MINUTES Reason for Visit and Comments: Dizziness [736917] Normal [facility] Orders Onlyon 02-01-2022 Orders Only [id number] Sun[place] Ryder 2000 Provider Department Center 02/01/2022 APRIL COSME CARD [facility] Family History Problem Relation Age of Onset Hypertension Mother Heart attack Maternal Grandmother Heart attack Maternal Grandfather Stroke Maternal Grandfather Family Status - Relation Status Age at Mother Maternal Grandmother Maternal Grandfather Normal [facility] CBC AUTO DIFFon 08-31-2021 BASO # 0.1 103/ul Normal 0.0-0.1 [facility] Comment on above: Performed By: #### C BC #### [facility] [address] [place] [address] Dr. Michael Vigil Basophils/100 WBC (Bld) 0.5 % Normal 0.2-2.0 [facility] Comment on above: Performed By: #### C BC #### [facility] [address] [place] [address] Dr. Michael Vigil EO # 0.1 103/ul Normal 0.0-0.7 [facility] Comment on above: Performed By: #### C BC #### [facility] [address] [place] [address] Dr. Michael Vigil Eosinophils/100 WBC (Bld) 1.3 % Normal 0.9-7.0 [facility] Comment on above: Performed By: #### C BC #### [facility] [address] [place] [address] Dr. Michael Vigil Erythrocyte distribution width (RBC) [Ratio] 12.5 % Normal 11.0-15.0 [facility] Comment on above: Performed By: #### C BC #### [facility] [address] [place] [address] Dr. Michael Vigil Hematocrit (Bld) [Volume fraction] 43.9 % Normal 36.0-48.0 [facility] Comment on above: Performed By: #### C BC #### [facility] [address] [place] [address] Dr. Michael Vigil Hemoglobin (Bld) [Mass/Vol] 14.7 g/dL Normal 12.0-16.0 [facility] Comment on above: Performed By: #### C BC #### [facility] [address] [place] [address] Dr. Michael Vigil IG # 0.03 10e3/ul Normal 0.00-0.03 [facility] Comment on above: Performed By: #### C BC #### [facility] [address] [place] [address] Dr. Michael Vigil IG % 0.3 % Normal 0.0-0.5 [facility] Comment on above: Performed By: #### C BC #### [facility] [address] [address] [address] Michael Vigil LYMPH # 3.0 103/ul Normal 1.2-3.8 [facility] Comment on above: Performed By: #### C BC #### [facility] [address] [place] [address] Dr. Michael Vigil Lymphocytes/100 WBC (Bld) 32.0 % Normal 20.5-60.0 [facility] Comment on above: Performed By: #### C BC #### [facility] [address] [place] [address] Dr. Michael Vigil MANUAL DIFF REQ NO Normal [facility] Comment on above: Performed By: #### C BC #### [facility] [address] [place] [address] Dr. Michael Vigil MCH (RBC) [Entitic mass] 30.2 pg Normal 26.7-34.0 [facility] Comment on above: Performed By: #### C BC #### [facility] [address] [place] [address] Dr. Michael Vigil MCHC (RBC) [Mass/Vol] 33.5 g/dL Normal 29.9-35.2 [facility] Comment on above: Performed By: #### C BC #### [facility] [address] [place] [address] Dr. Michael Vigil MCV (RBC) [Entitic vol] 90.1 fL Normal 81.0-99.0 [facility] Comment on above: Performed By: #### C BC #### [facility] [address] [place] [address] Dr. Michael Vigil MONO # 0.7 103/ul Normal 0.3-0.8 [facility] Comment on above: Performed By: #### C BC #### [facility] [address] [place] [address] Dr. Michael Vigil Monocytes/100 WBC (Bld) 7.8 % Normal 1.7-12.0 [facility] Comment on above: Performed By: #### C BC #### [facility] [address] [place] [address] Dr. Michael Vigil NEUT # 5.3 103/ul Normal 1.4-6.5 [facility] Comment on above: Performed By: #### C BC #### [facility] [address] [place] [address] Dr. Michael Vigil Neutrophils/100 WBC (Bld) 58.1 % Normal 43.0-75.0 [facility] Comment on above: Performed By: #### C BC #### [facility] [address] [place] [address] Dr. Michael Vigil Platelet mean volume (Bld) [Entitic vol] 10.3 fL Normal 9.5-13.5 [facility] Comment on above: Performed By: #### C BC #### [facility] [address] [place] [address] Dr. Michael Vigil PLT 292 103/ul Normal 150-450 [facility] Comment on above: Performed By: #### C BC #### [facility] [address] [place] [address] Dr. Michael Vigil RBC 4.87 106/ul Normal 4.20-5.40 [facility] Comment on above: Performed By: #### C BC #### [facility] [address] [place] [address] Dr. Michael Vigil WBC 9.2 103/ul Normal 4.0-11.0 [facility] Comment on above: Performed By: #### C BC #### [facility] [address] [place] [address] Dr. Michael Vigil PROF CHEM 8 (BAS METB)on Anion gap [Moles/Vol] 12.3 mmol/L Normal [facility] Comment on above: Performed By: #### B MP #### [facility] [address] [place] [address] Dr. Michael Vigil Calcium [Mass/Vol] 9.1 mg/dL Normal 8.5-10.1 [facility] Comment on above: Performed By: #### B MP #### [facility] [address] [place] [address] Dr. Michael Vigil Chloride [Moles/Vol] 106 mmol/L Normal 98-107 [facility] Comment on above: Performed By: #### B MP #### [facility] [address] [address] [address] Michael Vigil CO2 [Moles/Vol] 26.0 mmol/L Normal 21.0-32.0 [facility] Comment on above: Performed By: #### B MP #### [facility] [address] [address] [address] Michael Vigil Creatinine [Mass/Vol] 0.97 mg/dL Normal 0.55-1.02 [facility] Comment on above: Performed By: #### B MP #### [facility] [address] [place] [address] Dr. Michael Vigil EGFR-AF GREEK >60 Normal >=60 [facility] Comment on above: Performed By: #### B MP #### [facility] [address] [address] [address] Michael Vigil EGFR-NON AF GREEK >60 Normal >=60 [facility] Comment on above: Performed By: #### B MP #### [facility] [address] [address] [address] Michael Vigil Glucose [Mass/Vol] 96 mg/dL Normal 74-106 [facility] Comment on above: Performed By: #### B MP #### [facility] [address] [address] [address] Michael Vigil Potassium [Moles/Vol] 4.3 mmol/L Normal 3.5-5.1 [facility] Comment on above: Performed By: #### B MP #### [facility] [address] [address] [address] Michael Vigil Sodium [Moles/Vol] 140 mmol/L Normal 136-145 [facility] Comment on above: Performed By: #### B MP #### [facility] [address] [place] [address] Dr. Michael Vigil Urea nitrogen [Mass/Vol] 18.0 mg/dL Normal 6.4-19.3 [facility] Comment on above: Performed By: #### B MP #### [facility] [address] [address] [address] Michael Vigil Urea nitrogen/Creatinine [Mass ratio] 18.6 mg/mg Normal [facility] Comment on above: Performed By: #### B MP #### [facility] [address] [address] [address] Michael Vigil COVID Quick Testingon 2020 Result Negative [facility] Other Quick Strepon 02-09-2021 S. pyogenes Org specific cx Ql (Throat) Negative [facility] Other Quick Strep [facility] Other Vital Signs Date Time Vital Sign Value Performing Clinician Facility 01-29-2023 08:30-0500 Body weight 91.17 kg Leticia Dill Other [facility] Other 01-29-2023 08:30-0500 Diastolic blood pressure 84 mm[Hg] Leticia Dill Other [facility] Other 01-29-2023 08:30-0500 Systolic blood pressure 139 mm[Hg] Leticia Dill Other [facility] Other 07-18-2022 11:45-0400 Body height 160.02 cm Leticia Dill Other [facility] Other 07-18-2022 11:45-0400 Body mass index (BMI) [Ratio] 32.41 kg/m2 Leticia Dill Other [facility] Other 07-18-2022 11:45-0400 Body weight 83.01 kg Leticia Dill Other [facility] Other 07-18-2022 11:45-0400 Diastolic blood pressure 86 mm[Hg] Leticia Dill Other [facility] Other 07-18-2022 11:45-0400 Systolic blood pressure 145 mm[Hg] Leticia Dill Other [facility] Other 06-25-2022 15:45-0400 Body height 160.02 cm Leticia Dill Other [facility] Other 06-25-2022 15:45-0400 Body mass index (BMI) [Ratio] 31.7 kg/m2 Leticia Dill Other [facility] Other 06-25-2022 15:45-0400 Body weight 81.19 kg Leticia Dill Other [facility] Other 06-25-2022 15:45-0400 Diastolic blood pressure 80 mm[Hg] Leticia Dill Other [facility] Other 06-25-2022 15:45-0400 SaO2% (BldA) [Mass fraction] 99 % Leticia Dill Other [facility] Other 06-25-2022 15:45-0400 Systolic blood pressure 132 mm[Hg] Leticia Dill Other [facility] Other 02-09-2021 17:45-0500 Body height 160.02 cm Columba Fernandes Other [facility] Other 02-09-2021 17:45-0500 Body mass index (BMI) [Ratio] 33.65 kg/m2 Columba Fernandes Other [facility] Other 02-09-2021 17:45-0500 Body temperature 97.3 [degF] Columba Fernandes Other [facility] Other 02-09-2021 17:45-0500 Body weight 86.18 kg Columba Fernandes Other [facility] Other 02-09-2021 17:45-0500 Respiratory rate 18 /min Columba Fernandes Other [facility] Other 02-09-2021 17:45-0500 SaO2% (BldA) [Mass fraction] 99 % Columba Fernandes Other [facility] Other Encounters Encounter Date Encounter Type Care Provider Facility Start: 03-19-2023 ambulatory Perry ESCOBAR Facility :[facility] Start: 03-11-2023 End: 03-11-2023 ambulatory Leticia Dill Other [facility] Other Start: 03-11-2023 Telephone encounter Leticia Dill [facility] Start: 02-22-2023 End: 02-22-2023 ambulatory Leticia Dill Other [facility] Other Start: 02-22-2023 Telephone encounter Leticia Dill [facility] Start: 02-21-2023 End: 02-21-2023 ambulatory Leticia Dill Other [facility] Other Start: 02-21-2023 Telephone encounter Leticia Dill [facility] Start: 01-29-2023 End: 01-29-2023 ambulatory Leticia Dill Other [facility] Other Start: 01-29-2023 Office outpatient visit 25 minutes Leticia Dill [facility] Start: 11-16-2022 End: 11-16-2022 ambulatory Leticia Dill Other [facility] Other Start: 11-16-2022 Telephone encounter Leticia Dill [facility] Start: 08-27-2022 End: 08-27-2022 ambulatory Leticia Fuentes Other [facility] Other Start: 08-27-2022 Telephone encounter Leticia Dill [facility] Start: 08-23-2022 End: 08-23-2022 ambulatory Leticia Dill Other [facility] Other Start: 08-23-2022 Telephone encounter Leticia Dill [facility] Start: 07-18-2022 End: 07-18-2022 ambulatory Leticia Dill Other [facility] Other Start: 07-18-2022 Office outpatient visit 15 minutes Leticia Dill [facility] Start: 06-25-2022 End: 06-25-2022 ambulatory Leticia Fuentes Other [facility] Other Start: 06-25-2022 Office outpatient visit 10 minutes Leticia Dill [facility] Start: 05-18-2022 Telephone encounter Leticia Dill [facility] Start: 05-18-2022 End: 05-19-2022 ambulatory ELTICIA Mamie FUENTES [employer] Other Start: 04-10-2022 End: 04-10-2022 ambulatory Leticia Dill Other [facility] Other Start: 04-10-2022 Telephone encounter Leticia Dill [facility] Start: 04-02-2022 End: 04-02-2022 ambulatory Leticia Dill Other [facility] Other Start: 04-02-2022 Telephone encounter Leticia Dill [facility] Start: 03-30-2022 End: 03-30-2022 ambulatory Leticia Dill Other [facility] Other Start: 03-30-2022 Telephone encounter Leticia Dill [facility] Start: 03-14-2022 ambulatory LETICIA Mamie FUENTES Facility :[facility] Start: 02-26-2022 End: 02-26-2022 ambulatory Leticia Dill Other [facility] Other Start: 02-26-2022 Telephone encounter Leticia DOMÍNGUEZ [facility] Start: 02-01-2022 End: 02-01-2022 ambulatory [facility] Start: 08-31-2021 End: 08-31-2021 ambulatory LETICIA Mamie FUENTES Facility:[facility] Start: 02-09-2021 End: 02-09-2021 ambulatory Columba Dena Other [facility] Other Start: 02-09-2021 Office outpatient visit 15 minutes Columba Fernandes [facility] Start: 12-02-2018 Well child visit Leticia Fuentes Other [facility] Other Start: 08-12-2018 End: 08-12-2018 Emergency department patient visit [facility] Procedures Date Procedure Procedure Detail Performing [...] pertussis vaccine, unspecified formulation Leticia Dill Other [facility] Other Payers Date Payer Category Payer Private Health Insurance [id number] 2002 Unknown [id number] 2.16.84 [id number] 1980 Unknown [id number] 2.16.8 [id number] 1980 Unknown [id number] 2.16.84 [id number] 1980 Unknown [id number] 2.16.84 [id number] 1980 Unknown [id number] 2.16.8 [id number] 1959 Unknown [id number] 2.16.8 [id number] 1959 Unknown [id number]. [id number] Social History Date Type Detail Facility Sex Assigned At [facility] Other Clinical Notes 02-09-2021 to 03-11-2023 Note Date & Type Note Facility 03-11-2023 Evaluation note Encounter Date Diagnosis Assessment Notes Feb, Adult attention deficit disorder (ICD-10 - F98.8) Located [facility] [employer] Other 01-05-2024 Evaluation note* Encounter Date Diagnosis Assessment Notes Treatment Notes Treatment Clinical Notes Feb, Chronic GERD (ICD-10 - K21.9) [facility] Other 01-04-2024 Evaluation note* Encounter Date Diagnosis Assessment Notes Treatment Notes Treatment Clinical Notes Feb, Essential (primary) hypertension (ICD-10 - I10) [facility] Other 12-12-2023 Evaluation note* Encounter Date Diagnosis [...] in the reasonable future. Notes continued hematuria. [facility] Other 09-29-2023 Evaluation note* Encounter Date Diagnosis Assessment Notes Treatment Notes Treatment Clinical Notes Oct, Adult attention deficit disorder (ICD-10 - F98.8) [facility] Other 05-31-2023 Evaluation note* Encounter Date Diagnosis [...] we will refer her to a opthomologist [facility] Other 05-08-2023 Evaluation note* Encounter Date Diagnosis Assessment Notes Treatment Notes Treatment Clinical Notes June, Homeless family (ICD-10 - Z59.00) Note provided. States she needs this to get help with housing through [facility]. [facility] Other 12-17-2022 Note-she said this resolved with medication but it was stopped per her neurologist -follow up as scheduled with neurologist group -continue to monitor heart rate and blood pressure during events and daily [facility]12-17-2022 Note-she states they happen frequently so I will order a holter monitor for now -[facility]- due to her age I suspect this is likely related to lack of endurance or exercise tolerane -we discussed lifestyle changes and adding an exercise regimen to her routie [facility]12-15-2022 NoteUT Cardiology Note [facility] Reason for [...] Not on file Allergies: Allergies Allergen Reactions Codewanda Orozco Weight: 84.4kg Meds: Current Outpatient Medications [...] and daily Antoine Castellanos NP Cardiac Electrophysiology [facility]12-15-2022 NoteNew patient here to establish care. [...] light-headedness. All other systems reviewed and are negative.[facility] 02-09-2021 Evaluation note* Encounter Date Diagnosis Assessment [...] Patient care instructions given in writting by [facility] document. [facility] [facility] Other Evaluation [facility]No [employer] Other History general Narrative - Reported* Type Description Date Surgical History ADENOIDECTOMY Surgical History TONSILLECTOMY Hospitalization History SEE SURGICAL [facility] Other History general Narrative - Reported* Type Description Date Medical History Adult attention deficit disorder Medical History Lumbar pain Medical History Left flank discomfort Medical History Syncope and collapse Medical History Menorrhagia Medical History Kidney stone Medical History Anxiety and depression Medical History GERD (gastroesophageal reflux di sease) Surgical History ADENOIDECTOMY Surgical History TONSILLECTOMY Hospitalization History SEE SURGICAL [facility] Other Summary Purpose Family History No Family [...] DATE CREATED AUTHOR AUTHOR'S ORGANIZ ATION 02/08/2022 [facility] DATE CREATED AUTHOR AUTHOR'S ORGANIZ ATION 05/26/2022 [facility] DATE CREATED AUTHOR AUTHOR'S ORGANIZ ATION 03/19/2023 [facility] REASON FOR VISIT (unrecogniz ed section and [...] BE BASED ON THE PRIMARY CLINICAL RECORDS. [employer] provides no warranty or guarantee of the accuracy or completeness of information in this document.
[2023-03-23 14:10] LABS: Age Gdln ACOG Testing Note (.); IGP, rfx Aptima HPV ASCU Note (.)
== END 2023-03-19 20:21 | disposition home or self-care (01) ==
LOC: LAB 20:20
PROVIDERS: PCP Family Medicine; Visit Provider Obstetrics & Gynecology
DX: N20.0 Calculus of kidney (principal); Z01.419 Encounter for gynecological examination (general) (routine) without abnormal findings
CPT/HCPCS: 74018; G0145

== ENCOUNTER 2023-04-26 15:34 | Outpatient (OUT) | payer OTHER, SELFPAY ==
--- OUTSIDE RECORDS SUMMARY | 2023-04-26 15:43 | XMS_ITS | CCD ---
Author Name Unknown Address [address] [employer] [employer] [address] [place] [id number] Organization [facility] Care Team Providers Care Restaurant Bartender Name Role Phone DenaAdinColumba Unavailable ANTOINE WYATT Attending Unavailable Leticia Dill Unavailable LETICIA DILL Primary Care Unavailable PREET, DR SIMRAN Alexander Consulting Unavailnicole OVIEDO, DR SIMRAN Alexander Attending Unavailnicole OVIEDO, DR SIRMAN Alexander Admitting Unavailnicole e LETICIA DILL Primary Care Unavailable JOSE ., DR GAIL Mcwilliams Attending Unavailable GARCIA ., DR GAIL Mcwilliams Admitting Unavailable FITZGERALD .RL Consulting Unavailable LETICIA DILL Admitting Unavailable LETICIA DILL Primary Care Unavailable LETICIA DILL Consulting Unavailable LETICIA DILL Attending Unavailable LETICIA DILL Primary Care Physician Lexis Moura Unavailable Unavailable HARDY GAR Attending Unavailable Leticia Dill MD Primary Care Provider Perry ESCOBAR Attending Unavailable Perry ESCOBAR Admitting Unavailable Perry ESCOBAR Referring Unavailable Perry ESCOBAR Attending Unavailable Perry ESCOBAR Admitting Unavailable Perry ESCOBAR Referring Unavailable Perry ESCOBAR Attending Unavailable Allergies Allergy Classification Reported Allergen(s) Allergy Type Date of Onset Reaction(s) Facility (20 sources) Codeine; Translations: [CODEINE] Drug Allergy 9 Unknown (qualifier value), Hives, Other, Eruption of skin (disorder), Hyperactive behavior (finding) [facility] Repository (1 source) Codeine Drug Allergy 5 [facility] (1 source) patient allergy list reviewed by nurse or physicia Propensity to adverse reactions 8 Comment:Done [employer] Other (1 source) Allergies Reconciled Propensity to adverse reactions Unknown [employer] Other Medications Current Medications Medication Drug Class(es) Dates Sig (Normalized) Sig (Original) acetaminophen 325 mg oral tablet (1 source) Start: 04-18-2023 take 2 tablets by mouth every four hours Tylenol 325 mg Tab = 2 tab(s), Oral, q4hr, Pain - Moderate Start Date: 04/18/23 Status: Ordered acetaminophen 325 mg / HYDROcodone bitartrate 5 mg oral tablet (1 source) Opioid Agonist Start: 04-18-2023 End: 04-20-2023 acetaminophen-hy drocodone 325 mg-5 mg oral tablet 1 tab(s), Oral, q4hr Pain for 2 day(s), 7 tab(s), Refill(s) 0, N20.0, [facility]/pharmacy #[id number], 165, cm, 04/01/23 6:28:00 EST, Height/Length Dosing, 94.7, kg, 04/01/23 6:28:00 EST, Weight Dosing Start Date: 04/18/23 Stop Date: 04/20/23 Status: Ordered Amphetamine / Dextroamphetamine (5 sources) Central Nervous System Stimulant Adderall XR Active Adderall (20 sources) Central Nervous System Stimulant Start: 03-19-2023 take 25 mg by mouth twice daily Adderall 25 mg, Oral, BID, Refill(s) 0 Start Date: 03/19/23 Status: Ordered Start: 03-19-2023 amphetamine-de xtroamphetamine 15 mg oral tablet Refill(s) 0 Start Date: 03/19/23 Status: Ordered Start: 03-11-2023 take 1 tablet by umesh th every twelve hours Adderall 15 MG 1 tablet Orally Twice a d ay for 30 days Feb, Active Start: 01-29-2023 take 1 tablet by umesh th every twelve hours Adderall 15 MG 1 tablet Orally Twice a d ay for 30 days Jan, Active Start: 11-16-2022 take 1 tablet by umesh th every twelve hours Adderall 15 MG 1 tablet Orally Twice a d ay for 30 days Oct, Active Start: 07-18-2022 take 1 tablet by umesh every twelve hours Adderall 10 MG 1 tablet Orally Twice a d ay for 30 days June, Active Start: 06-15-2022 take 1 tablet by umesh every twelve hours Adderall 10 MG 1 tablet Orally Twice a d ay for 30 days May, Active Start: 05-18-2022 take 1 tablet by umesh every twelve hours Adderall 10 MG 1 tablet Orally Twice a d ay for 30 days Apr, Active Start: 04-10-2022 take 1 capsule by mo [facility] every twenty-four hours Adderall XR 25 MG 1 capsule Orally Once a day for 30 days Mar, Active cephalexin 500 mg oral capsule (1 source) Cephalosporin Antibacterial Start: 04-18-2023 End: 04-23-2023 take 1 capsule by mouth every twelve hours cephalexin 500 mg Cap 500 mg = 1 cap(s), Oral, q12hr, X 5 day(s), # 10 cap(s), Refills(s) 0, Pharmacy: [facility]/pharmacy #[id number], 165, cm, 04/01/23 6:28:00 EST, Height/Length Dosing, 94.7, kg, 04/01/23 6:28:00 EST, Weight Dosing Start Date: 04/18/23 Stop Date: 04/23/23 Status: Ordered famotidine 20 mg oral tablet (8 sources) Histamine-2 Receptor Antagonist Start: 03-29-2023 take 1 tablet by mouth once daily famotidine 20 mg Tab 20 mg = 1 tab(s), Oral, Daily, Refills(s) 0, Control of stomach acid Start Date: 03/29/23 Status: Ordered Start: 01-29-2023 take 1 tablet by umesh at bedtime famotidine (Pepcid) 20 MG tablet Take 20 mg by mouth at bedtime 0 02/24/2023 Active ibuprofen 800 mg oral tablet (12 sources) Nonsteroidal Anti-inflammatory Drug Start: 01-24-2022 ibuprofen 800 MG tablet every 6 (six) hours if needed. 0 01/24/2022 Active take 1 tablet by umesh every eight hours at mealtime Ibuprofen 800 MG TAKE 1 TABLET BY MOUTH EVERY 8 HOURS WITH FOOD OR MILK NEEDED 30 for 30 Active 1 ml medroxyPROGESTERone acetate 150 mg/ml prefilled syringe (2 sources) Progestin Start: 03-07-2023 medroxyPROGESTERone (Depo-Provera) 150 MG/ML suspension prefilled syringe injection syringe Indications: Encounter for surveillance of injectable contraceptive 1 mL Intramuscular 0.9 mL 1 03/07/2023 Active medroxyPROGESTERone 150 mg/mL IM Susp (2 sources) Start: 03-29-2023 inject 150 mg by intramuscular injection every three months medroxyPROGESTERone 150 mg/mL IM Susp 150 mg = 1 mL, IntraMuscular, q3mo, Refills(s) 0, control/menstrual regulation Start Date: 03/29/23 Status: Ordered 24 hr metoprolol succinate 25 mg extended release oral tablet (8 sources) beta-Adrener gic Ravin Start: 03-29-2023 take 1 tablet by mouth once daily metoprolol 25 mg ER Tab 25 mg = 1 tab(s), Oral, Daily, High blood pressure Start Date: 03/29/23 Status: Ordered Start: 01-29-2023 take 1 tablet by umesh th once daily metoprolol succinate XL (Toprol-XL) 25 MG 24 hr tablet TAKE 1 TABLET BY MOUTH EVERY DAY FOR 30 DAYS 0 02/24/2023 Active omeprazole 20 mg delayed release oral capsule (4 sources) Proton Pump Inhibitor Start: 12-07-2022 take 1 capsule by mouth once daily Omeprazole 20 MG 1 capsule 30 minutes before morning meal Orally Once a day for 30 day(s) Nov, Active oxybutynin chloride 5 mg oral tablet (1 source) Cholinergic Muscarinic Antagonist Start: 04-18-2023 End: 06-17-2023 take 1 tablet by mouth twice daily oxybutynin 5 mg Tab 5 mg = 1 tab(s), Oral, BID, X 30 day(s), # 60 tab(s), Refills(s) 1, Pharmacy: [facility]/pharmacy #[id number], 165, cm, 04/01/23 6:28:00 EST, Height/Length Dosing, 94.7, kg, 04/01/23 6:28:00 EST, Weight Dosing Start Date: 04/18/23 Stop Date: 06/17/23 Status: Ordered SUMAtriptan 50 mg oral tablet (5 sources) [...] Problem Date Documented Date Episodic/Chronic Abdominal pain (20 sources) Abdominal pain; Translations: [Unspecified abdominal pain] Onset: 02-28-2017 Episodic Anxiety disorders (15 sources) Mixed anxiety and depressive disorder; Translations: [Anxiety disorder, unspecified] Onset: 07-27-2022 Resolved: 11-17-2020 07-27-2022 Chronic Attention-deficit, conduct, and disruptive behavior disorders (3 sources) Attention deficit hyperactivity disorder; Translations: [Attention-deficit hyperactivity disorder, unspecified type] Onset: 02-13-2013 03-29-2023 Chronic Blindness and vision defects (1 source) Visual impairment; Translations: [Unspecified visual loss] Onset: 12-26-2016 Chronic Blindness and vision defects (1 source) Unspecified visual disturbance Episodic Calculus of urinary tract (20 sources) Kidney stone; Translations: [Calculus of kidney] Onset: 07-27-2022 Episodic Contraceptive and procreative management (2 sources) Surveillance of depot contraception done; Translations: [Encounter for surveillance of injectable contraceptive] Episodic Disorders usually diagnosed in infancy, childhood, or adolescence (18 sources) Adult attention deficit hyperactivity disorder ; Translations: [Other specified behavioral and emotional disorders with onset usually occurring in childhood and adolescence] Onset: 07-27-2022 Chronic Early or threatened labor (1 source) Premature/false labor; Translations: [ labor without delivery, unspecified trimester] Episodic Esophageal disorders (20 sources) Gastroesophageal reflux disease; Translations: [Gastro-esophageal reflux disease without esophagitis] Onset: 12-03-2017 Chronic Essential hypertension (8 sources) Essential hypertension; Translations: [Essential (primary) hypertension] [...] current use of drug therapy; Translations: [Other intermediate (current) drug therapy] Episodic Other circulatory disease [...] diseases complicating , unspecified trimester] Episodic Other female genital disorders (1 source) [...] [Lumbar pain] Onset: 04-08-2017 Episodic Substance-related disorders (3 sources) Nicotine dependence, other tobacco product, uncomplicated; Translations: [Smoker] Onset: 09-04-2021 03-29-2023 Chronic Comment on above: Added secondary to d ocumentation in Social History. Superficial injury; contusion (1 source) Nonvenomous insect bite of trunk without infection; Translations: [Insect bite (nonvenomous) of abdominal wall, initial encounter] Episodic Urinary tract infections (1 source) Urinary tract infectious disease; Translations: [Urinary tract infection, site not specified] Episodic Viral infection (1 source) Verruca vulgaris; Translations: [Other viral warts] Episodic Past or Other Problems Problem Classification Problem Date Documented Date Episodic/Chronic Administrative/social admission (3 sources) Stress; Translations: [Other psychological or physical stress, not elsewhere classified] Onset: 02-28-2017 07-27-2022 Episodic Cardiac dysrhythmias (2 sources) Palpitations; Translations: [Palpitations] Onset: 02-01-2022 07-27-2022 Episodic Conditions associated with dizziness or vertigo (5 sources) Dizziness and giddiness; Translations: [Dizziness and giddiness] Onset: 02-01-2022 Episodic Headache; including migraine (1 source) Migraine [...] Candidiasis; Translations: [Candidiasis, unspecified] Resolved: 08-20-2018 Episodic Nonspecific chest pain (2 sources) Atypical chest pain; Translations: [Other chest pain] Onset: 02-01-2022 07-27-2022 Episodic Other complications of (1 source) Complication occurring during ; Translations: [Other specified related conditions, second trimester] Resolved: 10-01-2018 Episodic Other complications of (2 sources) Disorder of ; Translations: [Other specified related conditions, unspecified trimester] Onset: 07-27-2022 07-27-2022 Episodic Other connective tissue disease (1 source) Pain in forearm; Translations: [Pain in joint, forearm] Onset: 08-23-2017 Episodic Other ear and sense organ disorders (3 sources) Impacted cerumen; Translations: [Impacted cerumen, bilateral] Onset: 07-27-2022 07-27-2022 Episodic Other female genital disorders (1 source) Abnormal uterine bleeding; Translations: [Abnormal uterine and vaginal bleeding, unspecified] Resolved: 11-17-2020 Chronic Other female genital disorders (2 sources) Vaginal discharge; Translations: [Other specified noninflammatory disorders of vagina] Onset: 07-27-2022 07-27-2022 Episodic Other lower respiratory disease (2 sources) Dyspnea on exertion; Translations: [Other forms of dyspnea] Onset: 02-01-2022 07-27-2022 Episodic Other non-traumatic joint disorders (1 source) Arthralgia [...] medical condition classified elsewhere] Onset: 09-19-2017 Episodic Syncope (13 sources) Syncope and collapse; Translations: [Syncope and collapse] Onset: 07-27-2022 07-27-2022 Episodic Unclassified (1 source) Homeless family Z59.00 Unclassified (1 source) Vaccine product containing only acellular Bordetella pertussis and Clostridium tetani and Corynebacterium diphtheriae antigens (medicinal product); Translations: [Yuqtvjqevq-qizyoyh-e ertussis, combined [DTP] [DtaP]] Onset: 11-02-2014 Unclassified (1 source) Other specified indication for care or intervention related to labor and delivery, unspecified as to episode of care; Translations: [Other specified indication for care or intervention related to labor and delivery, unspecified as to episode of care] Results Test Name Value Interpretation Reference Range Facility Consent for Anesthesiaon Consent for Anesthesia [id number]#1.0 0TIFF [facility] Discharge Instructionson Discharge Instructions [id number]#1.0 0TIFF [facility] IntraOperative Documentson 0 04-19-2023 IntraOperative Documents [id number]#1.0 0TIFF [facility] IntraOperative Documents [id number]#1.0 0TIFF [facility] IntraOperative Documents [id number]#1.0 0TIFF [facility] Pre-Op Checkliston Pre-Op Checklist [id number]#1.0 0TIFF [facility] Consent for Procedure/Surger yon 04-18-2023 Consent for Procedure/Surgery [id number]#1.0 0TIFF [facility] Consent for Treatmenton 03-22 Consent for Treatment [id number]#1.0 0TIFF [facility] Discharge Instructionson Discharge Instructions SUNSHINE RYDER Jarocho :2000 Visit Date:04/18/2023 Inpatient Discharge Instructions Your Care Team Admitting Physician - Perry ESCOBAR MD Referring Physician - Perry ESCOBAR MD Reason for Your Visit KIDNEY STONE Tests Performed XR Abdomen 1 View XR Urography Retrograde Left -- Results Pending -- Please visit your patient portal for your results or contact your primary care physician. This Is Your Medications List acetaminophen (Tylenol 325 mg Tab) acetaminophen-hydrocod one (acetaminophen-hydroco done 325 mg-5 mg oral tablet) amphetamine-dextroamph etamine (Adderall) cephalexin (cephalexin 500 mg Cap) famotidine (famotidine 20 mg Tab) medroxyPROGESTERone (medroxyPROGESTERone 150 mg/mL IM Susp) metoprolol (metoprolol 25 mg ER Tab) oxybutynin (oxybutynin 5 mg Tab) Procedure History ESWL of kidney (04/18/2023), Tonsillectomy, Tooth. What to do next Instructions From Your Doctor Event Name Event Result Discharge Activity Arrange for a responsible adult supervision for 24 hours, Expect mild pain, Expect minimal amount of drainage and/or bleeding Discharge Restrictions No driving, Do not operate machinery or tools, Do not make important decisions for 24 hours, Do not drink alcoholic beverages for 24 hours Discharge Diet(s) Regular Call Your Doctor For Persistent or heavy bleeding, Temperature above 101.5 degrees Discharge Instructions Discharge Instructions New Follow Up Appointments after Discharge Follow Up with Perry ESCOBAR When: Comments: Please call my office to make arrangements for an abdominal x-ray next week. Based upon the results of that study, we will decide upon the next step. You do have multiple stones in this kidney so we may have to repeat stone busting versus going up into the kidney to utilize a laser to clean the rest of the fragments and other stones out. I did send some prescriptions to your pharmacy. Discharge instructions should accompany your paperwork. The stent will be irritating and may cause blood in the urine, burning with frequency and urgency of urination. Push the fluids to keep the urine clear. Where: [address] [address] [address] [place] [id number] [facility] (1) Medications What How Much When Instructions Next Dose New acetaminophen-hydrocod one (acetaminophen-hydroco done 325 mg-5 mg oral tablet) 1 Tablets By Mouth Every 4 hours as needed for Pain Duration: 2 Days N20.0 Pickup at [facility]/pharmacy #[id number] New cephalexin (cephalexin 500 mg Cap) 1 Capsules By Mouth Every 12 hours Duration: 5 Days Pickup at [facility]/pharmacy #[id number] New oxybutynin (oxybutynin 5 mg Tab) 1 Tablets By Mouth 2 times a day Duration: 30 Days Refills: 1 Pickup at [facility]/pharmacy #[id number] Unchanged acetaminophen (Tylenol 325 mg Tab) 2 Tablets By Mouth Every 4 hours Unchanged amphetamine-dextroamph etamine (Adderall) 25 Milligram By Mouth 2 times a day Unchanged famotidine (famotidine 20 mg Tab) 1 Tablets By Mouth Every day Unchanged medroxyPROGESTERone (medroxyPROGESTERone 150 mg/ mL IM Susp) 1 Milliliter Intramuscular Every 3 months Unchanged metoprolol (metoprolol 25 mg ER Tab) 1 Tablets By Mouth Every day Pharmacy Information [facility]/pharmacy #[id number]: [address], [place] [id number] [phone] Test Results No qualifying data available. Allergies codeine (Hives, Rash, Hyperactivity) Problems Ongoing - Any problem that you are currently receiving treatment for. Abdominal pain Flank pain Kidney stone Smoker Devices Implanted/Removed This Visit Notice: You have devices implanted this visit that may not be MRI compatible. Implanted CYSTOSCOPY STENT INSERTION Ureter L CASCADE URETERAL STENT 04/18/2023 Education Materials Lithotripsy, Care After This sheet gives you information about how to care for yourself after your procedure. Your health care provider may also give you more specific instructions. If you have problems or questions, contact your health care provider. What can I expect after the procedure? After the procedure, it is common to have: ? Some blood in your urine. This should only last for a few days. ? Soreness in your back, sides, or upper abdomen for a few days. ? Blotches or bruises on the area where the shock wave entered the skin. ? Pain, discomfort, or nausea when pieces (fragments) of the kidney stone move through the tube that carries urine from the kidney to the bladder (ureter). Stone fragments may pass soon after the procedure, but they may continue to pass for up to 4?8 weeks. ? If you have severe pain or nausea, contact your health care provider. This may be caused by a large stone that was not broken up, and this may mean that you need more treatment. ? Some pain or discomfort during urination. ? Some pain or discomfort in the lower abdomen or (in men) at the base of the penis. Follow these instructions at (more content not included)... [facility] Comment on above: Result Comment: Elec tronically Signed By: Carlos DOUGLAS, [place]\.br\Date and Time Signed: 04/18/23 10:52 EST H&P Updateon 04-18-2023 H&P Update [id number]#1.0 0TIFF [facility] Inpatient Patient Summaryon 04-18-2023 Inpatient Patient Summary [place] [id number] [facility] Clinical Discharge Instructions PERSON INFORMATION Name: SUNSH[facility]YDER [facility] Admitting Physician: Perry ESCOBAR MD Attending Physician: Perry ESCOBAR MD PCP: LETICIA DILL MD Discharge Diagnosis: Comment: PATIENT EDUCATION INFORMATION Instructions: Lithotripsy, Care After Medication Leaflets: Follow up: With: Address: When: Perry ESCOBAR [address] [place] [address], [address], [place] [id number] Business (1) Comments: Please call my office to make arrangements for an abdominal x-ray next week. Based upon the results of that study, we will decide upon the next step. You do have multiple stones in this kidney so we may have to repeat stone busting versus going up into the kidney to utilize a laser to clean the rest of the fragments and other stones out. I did send some prescriptions to your pharmacy. Discharge instructions should accompany your paperwork. The stent will be irritating and may cause blood in the urine, burning with frequency and urgency of urination. Push the fluids to keep the urine clear. MEDICATION LIST New Medications [facility]/pharmacy #[id number], [address], [place] [id number], [phone] acetaminophen-hydrocod one (acetaminophen-hydroco done 325 mg-5 mg oral tablet) 1 Tablets By Mouth every 4 hours as needed Pain for 2 Days. N20.0. Refills: 0. cephalexin (cephalexin 500 mg Cap) 1 Capsules By Mouth every 12 hours for 5 Days. Refills: 0. oxybutynin (oxybutynin 5 mg Tab) 1 Tablets By Mouth 2 times a day for 30 Days. Refills: 1. Medications to Continue with No Changes Other Medications acetaminophen (Tylenol 325 mg Tab) 2 Tablets By Mouth every 4 hours. amphetamine-dextroamph etamine (Adderall) 25 Milligram By Mouth 2 times a day. famotidine (famotidine 20 mg Tab) 1 Tablets By Mouth every day. medroxyPROGESTERone (medroxyPROGESTERone 150 mg/mL IM Susp) 1 Milliliter Intramuscular every 3 months. metoprolol (metoprolol 25 mg ER Tab) 1 Tablets By Mouth every day. Comment: [facility] Main OR Intraoperative Recor don 04-18-2023 Main OR Intraoperative Record IntraOp Document Type FT Summary Primary Physician: Perry ESCOBAR MD Finalized Date/Time: 04/18/23 10:47:06 Pt. Name: SUNSHINE RYDER/Sex: 2000 Female Med Rec #: [id number] Physician: Perry ESCOBAR MD Financial #: [id number] Pt. Type: A Room/Bed: [facility]/ Admit/Disch: 04/18/23 07:31:13 - Institution: Case Times FT Entry 1 Patient Times In Room 04/18/23 09:28:00 Out Room 04/18/23 10:05:00 Procedure Times Start 04/18/23 09:38:00 Stop 04/18/23 10:00:00 Anesthesia Times Start 04/18/23 09:28:00 Stop 04/18/23 10:05:00 Last Modified By: Paul Reddy Ii 04/18/23 10:09:37 Case Attendance FT Entry 1 Entry 2 Entry 3 Case Attendee Rishi WALSH, Robert ESCOBAR MD, Goldie Nolasco Role Performed CISTERN ROOM WORKING SUPERVISOR Surgeon - Primary Scrub - Primary Time In 04/18/23 09:28:00 04/18/23 09:28:00 04/18/23 09:28:00 Time Out 04/18/23 10:05:00 04/18/23 10:05:00 04/18/23 10:05:00 Procedure CYSTOSCOPY STENT CYSTOSCOPY STENT CYSTOSCOPY STENT INSERTION(Left), INSERTION(Left), INSERTION(Left), EXTRACORPOREAL SHOCK EXTRACORPOREAL SHOCK EXTRACORPOREAL SHOCK WAVE LITHOTRIPSY(Left) WAVE LITHOTRIPSY(Left) WAVE LITHOTRIPSY(Left) Comments DR. PATEL GASKET FORMER Last Modified By: Paul Reddy Ii, Alfons Ii Paul Zungia Ii Allyson 04/18/23 10:09:42 04/18/23 10:09:42 04/18/23 10:09:42 Entry 4 Entry 5 Entry 6 Case Attendee Paul Reddy Ii RN, Kristian Palafox Role Performed Gluing Machine Operator - Primary Staff - Other Staff - Other Time In 04/18/23 09:28:00 04/18/23 09:28:00 04/18/23 09:28:00 Time Out 04/18/23 10:05:00 04/18/23 09:35:00 04/18/23 10:05:00 Procedure CYSTOSCOPY STENT CYSTOSCOPY STENT CYSTOSCOPY STENT INSERTION(Left), INSERTION(Left), INSERTION(Left), EXTRACORPOREAL SHOCK EXTRACORPOREAL SHOCK EXTRACORPOREAL SHOCK WAVE LITHOTRIPSY(Left) WAVE LITHOTRIPSY(Left) WAVE LITHOTRIPSY(Left) Comments HELPED IN POSITIONING HELPING IN ROOM Last Modified By: Paul Reddy Ii, Alfons Ii Paul Zuniga Ii F 04/18/23 10:09:42 04/18/23 10:09:42 04/18/23 10:09:42 General Comments: [place] [facility] IS IN ATTENDANCE. 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 Protocols FT Pre-Care Text: Implements protective measures prior to operative or invasive procedure, confirms identity before the operative or invasive procedure, verifies operative procedure, surgical site, and laterality Entry 1 Procedure(s) CYSTOSCOPY STENT Patient Identity Birthday, ID Band INSERTION(Left), Verified (select at Check, Patient EXTRACORPOREAL SHOCK least 2): Participation WAVE LITHOTRIPSY(Left) Consents / H and P Anesthesia Consent, Operative Site N/A Verified HandP, Surgery/Procedure Marking Verified Consent Surgical Site Yes Laterality Verified Yes Verified Procedure Verified Yes Correct Patient Yes Position Verified Availability Equipment, Implant, Prep Dry No Verified (If Medication, X-ray Applicable) PreOp Antibiotic Yes Time Out Robert Blackwell CRNA, Given Participants SHAWN COOK, Martha Taylor Sydney A, Paul Reddy Ii Time Out Complete 04/18/23 09:37:00 Outcomes Met? Yes Last Modified By: Paul Reddy Ii 04/18/23 09:48:20 Post-Care Text: The patient is free from signs and symptoms of injury caused by extraneous objects Allergy Information FT Pre-Care Text: Verifies allergies Entry 1 Allergies Reviewed? Yes Allergies Reviewed Self/Patient With Outcomes Met? Yes Last Modified By: Paul Reddy Ii F 04/18/23 09:49:34 Post-Care Text: The patient received appropriate medication(s) safely administered during the perioperative period Surgical Procedures FT Entry 1 Entry 2 Procedure Description Procedure CYSTOSCOPY STENT EXTRACORPOREAL SHOCK INSERTION WAVE LITHOTRIPSY Modifiers Left Left Surgeon Description CYSTO LEFT STENT CYSTO LEFT STENT PLACEMENT and ESWL PLACEMENT and ESWL Primary Procedure Yes No Primary Surgeon Perry ESCOBAR MD, MD, Gregory P Start 04/18/23 09:38:00 04/18/23 09:38:00 Stop 04/18/23 10:00:00 04/18/23 10:00:00 Anesthesia Type General General Surgical Service Urology Urology Wound Class 2 - Clean-Contaminated 1 - Clean Last Modified By: Paul Reddy Ii F Paul Reddy Ii F 04/18/23 10:09:44 04/18/23 10:09:44 General Case Data FT Pre-Care Text: Classifies surgical wound, implements aseptic technique, initiates traffic control Entry 1 Case Information OR OR 5 FT Case Level Level 3 Wound Class 2 - Clean-Contaminated Specialty Urology ASA Class 2 Preop Diagnosis KIDNEY STONE LEFT Postop Same As Preop Yes Postop Diagnosis KIDNEY STONE LEFT Outcomes Met? Yes Last Modified By: Paul Reddy Ii F 04/18/23 09:49:55 Post-Care Text: The patient is free from signs and symptoms of infection Skin Assessment (Pre Procedure) FT Pre-Care Text: Implements protective measures to prevent skin/ tissue i (more content not included)... [facility] Main OR PACU I Recordon 03-22 Main OR PACU I Record PACU Phase I Docum ent Type FT Summary Primary Physician: Perry ESCOBAR MD Finalized Date/Time: 04/18/23 11:05:16 Pt. Name: SUNSHINE RYDER /Sex: 2000 Female Med Rec #: [id number] Physician: Perry ESCOBAR MD Financial #: [id number] Pt. Type: A Room/Bed: [facility]/ Admit/Disch: 04/18/23 07:31:13 - Institution: Case Times PACU I FT Pre-Care Text: Identifies barriers to communication and implements measures to provide psychological support Develops individualized plan of care, and ensures continuity of care Maintains patient's dignity and privacy, and maintains patient confidentiality Identifies and reports philosophical, cultural, and spiritual beliefs and values Identifies individual values and wishes concerning care Implements aseptic technique, and administers prescribed antibiotic therapy and immunizing agents as ordered Evaluates postoperative tissue perfusion Implements thermoregulation measures, and monitors body temperature Evaluates postoperative respiratory status Evaluates postoperative cardiac status Evaluates postoperative neurological status Assesses pain control, collaborated in initiating patient-controlled analgesia and implements alternative methods of pain control Verifies allergies, administers prescribed medications and solutions, evaluates response to medications Entry 1 In PACU I 04/18/23 10:07:00 Discharge from PACU 04/18/23 10:37:00 I Outcomes Met? Yes Last Modified By: Nikia Woods RN 04/18/23 11:04:54 Post-Care Text: The patient demonstrates knowledge of the expected response to the operative or invasive procedure The patient's care is consistent with the individualized perioperative plan of care The patient's right to privacy is maintained The patient's value system, lifestyle, ethnicity, and culture are considered, respected, and incorporated into the perioperative plan of care The patient participates in decisions affecting his or her perioperative plan of care The patient is free from signs and symptoms of infection The patient has wound/tissue perfusion consistent with or improved from baseline levels established preoperatively The patient is at or returning to normothermia at the conclusion of the immediate postoperative period The patient's respiratory function is consistent with or improved from baseline levels established preoperatively The patient's cardiovascular status is consistent with or improved from baseline levels established preoperatively The patient's cardiovascular status is consistent with or improved from baseline levels established preoperatively The patient demonstrates and/or reports adequate pain control throughout the perioperative period The patient received appropriate medication(s), safely administered during the perioperative period Acuity Level PACU I FT Entry 1 Start Time 04/18/23 10:07:00 Stop Time 04/18/23 10:37:00 Acuity Level Acuity Level I Last Modified By: Nikia Woods RN 04/18/23 11:05:10 Finalized By: Nikia Woods RN Document Signatures Signed By: Nikia Woods RN 04/18/23 11:05 [facility] Main OR PACU II Recordon Main OR PACU II Record PACU Phase II Document Type FT Summary Primary Physician: Perry ESCOBAR MD Finalized Date/Time: 04/18/23 13:12:09 Pt. Name: SUNSHINE RYDER/Sex: 2000 Female Med Rec #: [id number] Physician: Perry ESCOBAR MD Financial #: [id number] Pt. Type: A Room/Bed: 04/18 Admit/Disch: 04/18/23 07:31:13 - Institution: Case Times PACU II FT Pre-Care Text: Identifies barriers to communication and implements measures to provide psychological support and determines knowledge level Develops individualized plan of care, and ensures continuity of care Maintains patient's dignity and privacy, and maintains patient confidentiality Identifies and reports philosophical, cultural, and spiritual beliefs and values Identifies individual values and wishes concerning care administers prescribed antibiotic therapy and immunizing agents as ordered, Evaluates postoperative tissue perfusion Implements thermoregulation measures, and monitors body temperature Evaluates postoperative respiratory status Evaluates postoperative cardiac status Evaluates postoperative neurological status Assesses pain control, collaborated in initiating patient-controlled analgesia and implements alternative methods of pain control Verifies allergies, administers prescribed medications and solutions, evaluates response to medications Entry 1 In PACU II 04/18/23 10:40:00 Discharge from PACU 04/18/23 13:10:00 II Outcomes Met? Yes Last Modified By: Mindi Gonzalez RN 04/18/23 13:11:54 Post-Care Text: The patient demonstrates knowledge of the expected response to the operative or invasive procedure The patient's care is consistent with the individualized perioperative plan of care The patient's right to privacy is maintained The patient's value system, lifestyle, ethnicity, and culture are considered, respected, and incorporated into the perioperative plan of care The patient participates in decisions affecting his or her perioperative plan of care. The patient is free from signs and symptoms of infection The patient has wound/tissue perfusion consistent with or improved from baseline levels established preoperatively The patient is at or returning to normothermia at the conclusion of the immediate postoperative period The patient's respiratory function is consistent with or improved from baseline levels established preoperatively The patient's cardiovascular status is consistent with or improved from baseline levels established preoperatively The patient's neurological status is consistent with or improved from baseline levels established preoperatively The patient demonstrates and/or reports adequate pain control throughout the perioperative period The patient received appropriate medication(s), safely administered during the perioperative period Finalized By: Mindi Gonzalez RN Document Signatures Signed By: Mindi Gonzalez RN 04/18/23 13:12 [facility] Main OR Preoperative Recordo n 04-18-2023 Main OR Preoperative Record PreOp Document Type FT Summary Primary Physician: Perry ESCOBAR MD Finalized Date/Time: 04/18/23 09:46:06 Pt. Name: RYDERSUNSHINE/Sex: 2000 Female Med Rec #: [id number] Physician: Perry ESCOBAR MD Financial #: [id number] Pt. Type: A Room/Bed: [facility]/ Admit/Disch: 04/18/23 07:31:13 - Institution: Case Times PreOp FT Pre-Care Text: Verifies consent for planned procedure, identifies individual values and wishes concerning care, includes family members in perioperative teaching Entry 1 Patient Times. In Pre Surgery 04/18/23 07:45:00 Out Pre Surgery 04/18/23 09:26:00 Outcomes Met? Yes Last Modified By: Paul Reddy Ii 04/18/23 09:46:04 Post-Care Text: The patient participates in decisions affecting his or her perioperative plan of care Finalized By: Paul Reddy Ii Document Signatures Signed By: Paul Reddy Ii 04/18/23 09:46 [facility] Monitor Recordon 04-18-2023 Monitor Record [id number]. [id number] [facility] Operative Reporton Operative Report Patient: SUNSHINE RYDER Age: 23 years Sex: Female : 2000 Associated Diagnoses: None Author: Perry ESCOBAR MD Postoperative Information Date/ Time: 04/18/2023 10:03:00 Postoperative Diagnosis: Multiple left renal calculi. Performed by: Perry Escobar MD. Findings: Procedure: Cystoscopy Left double-J stent placement under fluoroscopic guidance ESWL left renal calculi Anesthesia: General, LMA, Dr. Patel Indications: This is a 23-year-old female found to have multiple stones in the left kidney approaching 1 cm. Recommendation made for cystoscopy and a left stent, and ESWL with the inherent risk of bleeding, infection, need for additional procedures, blockage from stone fragments stent pain and irritation, heart and lung problems under anesthesia, among others. Despite these risks she wishes to proceed. She did receive preoperative antibiotics and she does have bilateral SCDs in place and functional on the lower extremities throughout the case. She wanted to proceed Procedure: The patient was brought back to the operating room and a timeout was performed. All are in agreement with the operative plan. She is identified appropriately. After the successful induction of general anesthesia by LMA she is positioned in the modified dorsolithotomy position and prepped in usual fashion Betadine solution. She is draped appropriately and pressure points were padded. 2% Xylocaine jelly is placed per urethra and a well-lubricated 22 Martiniquais is urethroscope with 30 degree lens then passed into the bladder. Panendoscopy reveals no tumors, no stones, no diverticuli. The left orifice was cannulated and a point 035 wire was passed up into the kidney. Over that a 4.9 Martiniquais Dornier stent was passed into the kidney and the wire was removed. There is good curl within the renal pelvis and the bladder. Bladder emptied and the scope was removed. Lithotripsy was initiated on the left renal calculus mainly in the left midpole/renal pelvic area. A total of 2500 shocks were given there and some down into the lower pole area as fragments shifted inferiorly. Maximum shock was at 8.0. The lithotripsy was performed per protocol. A lower pole stone was additionally hit. There appears to be stone fragmentation. She tolerates it well. She is transferred to the [facility] and then back to PACU in satisfactory condition, stable vital signs. Plan to be for discharge home with an abdominal x-ray next week. We will then determine the next step which may be retrograde ureteroscopy/nephrosco py and laser lithotripsy of remaining fragments versus simply removing the stent if fragments seem to be small enough. I discussed this with her sister. I did send prescriptions for [place], cephalexin, and oxybutynin to the pharmacy.. Estimated Blood Loss: 0 ml. Complications: None. Anesthesia type: General. [facility] Comment on above: Result Comment: Elec tronically Signed By: Perry ESCOBAR MD\.br\Date and Time Signed: 04/18/23 10:06 EST Outpatient Surgery Discharge Instructionon 04-18-2023 Outpatient Surgery Discharge Instruction [place] [id number] Patient Discharge Instructions PERSON INFORMATION Name: SUNSHINE RYDER Jarocho Date of : 2000 Current Date: 04/18/2023 10:02:50 PHYSICIANS Admitting Physician: Perry ESCOBAR MD Discharge Diagnosis: SUNSHINE RYDER has been given the following list of follow-up instructions, prescriptions, and patient education materials: PATIENT FOLLOW-UP INFORMATION Diet: Regular Discharge Activity: Arrange for a responsible adult supervision for 24 hours, Expect mild pain, Expect minimal amount of drainage and/or bleeding Discharge Restrictions: No driving, Do not operate machinery or tools, Do not make important decisions for 24 hours, Do not drink alcoholic beverages for 24 hours Call Your Doctor For: Persistent or heavy bleeding, Temperature above 101.5 degrees IF UNABLE TO CONTACT YOUR PHYSICIAN AND YOU FEEL IT IS AN EMERGENCY, GO TO THE NEAREST EMERGENCY ROOM OR CALL 911 BRITNI Edwards KELSEY D, have received the attached patient education materials/instructions and have verbalized understanding: May we do a follow up call? Yes No I was present when discharge instructions were given Patient Signature Date Clinican/Nurse Signature ___ Date Follow up: With: Address: When: Perry ESCOBAR [address] [place] [address], [address], [place] [address] Business (1) Comments: Please call my office to make arrangements for an abdominal x-ray next week. Based upon the results of that study, we will decide upon the next step. You do have multiple stones in this kidney so we may have to repeat stone busting versus going up into the kidney to utilize a laser to clean the rest of the fragments and other stones out. I did send some prescriptions to your pharmacy. Discharge instructions should accompany your paperwork. The stent will be irritating and may cause blood in the urine, burning with frequency and urgency of urination. Push the fluids to keep the urine clear. Pharmacy Information: You may receive a survey from [employer] asking you to rate your care experience. Your feedback is important and will help us understand what we do well and how we can improve the quality of care we provide to you, your loved ones and our community. It?s an honor to serve you. Thank you for choosing [facility] HERE ARE THE MEDICATION CHANGES THAT OCCURRED DURING YOUR HOSPITAL STAY New Medications [id number], [address], [place] [phone], [phone] acetaminophen-hydrocod one (acetaminophen-hydroco done 325 mg-5 mg oral tablet) 1 Tablets By Mouth every 4 hours as needed Pain for 2 Days. N20.0. Refills: 0. cephalexin (cephalexin 500 mg Cap) 1 Capsules By Mouth every 12 hours for 5 Days. Refills: 0. oxybutynin (oxybutynin 5 mg Tab) 1 Tablets By Mouth 2 times a day for 30 Days. Refills: 1. Medications to Continue with No Changes Other Medications acetaminophen (Tylenol 325 mg Tab) 2 Tablets By Mouth every 4 hours. amphetamine-dextroamph etamine (Adderall) 25 Milligram By Mouth 2 times a day. famotidine (famotidine 20 mg Tab) 1 Tablets By Mouth every day. medroxyPROGESTERone (medroxyPROGESTERone 150 mg/mL IM Susp) 1 Milliliter Intramuscular every 3 months. metoprolol (metoprolol 25 mg ER Tab) 1 Tablets By Mouth every day. PATIENT EDUCATION INFORMATION Instructions: Lithotripsy, Care After This sheet gives you information about how to care for yourself after your procedure. Your health care provider may also give you more specific instructions. If you have problems or questions, contact your health care provider. What can I expect after the procedure? After the procedure, it is common to have: ? Some blood in your urine. This should only last for a few days. ? Soreness in your back, sides, or upper abdomen for a few days. ? Blotches or bruises on the area where the shock wave entered the skin. ? Pain, discomfort, or nausea when pieces (fragments) of the kidney stone move through the tube that carries urine from the kidney to the bladder (ureter). Stone fragments may pass soon after the procedure, but they may continue to pass for up to 4?8 weeks. ? If you have severe pain or nausea, contact your health care provider. This may be caused by a large stone that was not broken up, and this may mean that you need more treatment. ? Some pain or discomfort during urination. ? Some pain or discomfort in the lower abdomen or (in men) at the base of the penis. Follow these instructions at home: Medicines ? Take [id number] and prescription medicines only as told by you (more content not included)... [facility] Patient Education - Texton 0 04-18-2023 Patient Education - Text Nephrology Lithotripsy, Care After This sheet gives you information about how to care for yourself after your procedure. Your health care provider may also give you more specific instructions. If you have problems or questions, contact your health care provider. What can I expect after the procedure? After the procedure, it is common to have: ? Some blood in your urine. This should only last for a few days. ? Soreness in your back, sides, or upper abdomen for a few days. ? Blotches or bruises on the area where the shock wave entered the skin. ? Pain, discomfort, or nausea when pieces (fragments) of the kidney stone move through the tube that carries urine from the kidney to the bladder (ureter). Stone fragments may pass soon after the procedure, but they may continue to pass for up to 4?8 weeks. ? If you have severe pain or nausea, contact your health care provider. This may be caused by a large stone that was not broken up, and this may mean that you need more treatment. ? Some pain or discomfort during urination. ? Some pain or discomfort in the lower abdomen or (in men) at the base of the penis. Follow these instructions at home: Medicines ? Take jzlu-[id number] and prescription medicines only as told by your health care provider. ? If you were prescribed an antibiotic medicine, take it as told by your health care provider. Do not stop taking the antibiotic even if you start to feel better. ? Ask your health care provider if the medicine prescribed to you requires you to avoid driving or using machinery. Eating and drinking ? Drink enough fluid to keep your urine pale yellow. This helps any remaining pieces of the stone to pass. It can also help prevent new stones from forming. ? Eat plenty of fresh fruits and vegetables. ? Follow instructions from your health care provider about eating or drinking restrictions. You may be instructed to: ? Reduce how much salt (sodium) you eat or drink. Check ingredients and nutrition facts on packaged foods and beverages to see how much sodium they contain. ? Reduce how much meat you eat. ? Eat the recommended amount of calcium for your age and gender. Ask your health care provider how much calcium you should have. General instructions ? Get plenty of rest. ? Return to your normal activities as told by your health care provider. Ask your health care provider what activities are safe for you. Most people can resume normal activities 1?2 days after the procedure. ? If you were given a sedative during the procedure, it can affect you for several hours. Do not drive or operate machinery until your health care provider says that it is safe. ? Your health care provider may direct you to lie in a certain position (postural drainage) and tap firmly (percuss) over your kidney area to help stone fragments pass. Follow instructions as told by your health care provider. ? If directed, strain all urine through the strainer that was provided by your health care provider. ? Keep all fragments for your health care provider to see. Any stones that are found may be sent to a medical lab for examination. The stone may be as small as a grain of salt. ? Keep all follow-up visits as told by your health care provider. This is important. Contact a health care provider if: ? You have a fever or chills. ? You have nausea that is severe or does not go away. ? You have any of these urinary symptoms: ? Blood in your urine for longer than your health care provider told you to expect. ? Urine that smells bad or unusual. ? Feeling a strong urge to urinate after emptying your bladder. ? Pain or burning with urination that does not go away. ? Urinating more often than usual and this does not go away. ? You have a stent and it comes out. Get help right away if: ? You have severe pain in your back, sides, or upper abdomen. ? You have any of these urinary symptoms: ? Severe pain while urinating. ? More blood in your urine or having blood in your urine when you did not before. ? Passing blood clots in your urine. ? Passing only a small amount of urine or being unable to pass any urine at all. ? You have severe nausea that leads to persistent vomiting. ? You faint. Summary ? After this procedure, it is common to have some pain, discomfort, or nausea when pieces (fragments) of the kidney stone move through the tube that carries urine from the kidney to the bladder (ureter). If this pain or nausea is severe, however, you should contact your health care provider. ? Return to your normal activities as told by your health care provider. Ask your health care provider what activities are safe for you. ? Drink enough fluid to keep your urine pale yellow. This helps any remaining pieces of the stone to pass, and it can help prevent new stones from forming. ? (more content not included)... [facility] Progress Note-Physicianon Progress Note-Physician Patient: SUNSHINE RYDER Age: 23 years Sex: Female : 2000 Associated Diagnoses: None Author: Aamir Patel Jr., DO Postoperative Information Postoperative disposition: Postoperative disposition: Home. Optimetrix number: Optimetrix number [id number]. Anesthetic utilized: General. Physical Examination Vital Signs 04/18/2023 10:41 EST Heart Rate Monitored 53 bpm LOW SpO2 99 % 04/18/2023 10:41 EST Systolic Blood Pressure 140 mmHg HI Diastolic Blood Pressure 85 mmHg Mean Arterial Pressure, Monitered 104 mmHg 04/18/2023 10:40 EST Respiratory Rate 18 br/min 04/18/2023 10:20 EST Heart Rate Monitored 66 bpm Respiratory Rate Monitored 20 br/min Systolic Blood Pressure 146 mmHg HI Diastolic Blood Pressure 87 mmHg Blood Pressure Location Left arm Mean Arterial Pressure, Cuff 107 mmHg SpO2 100 % 04/18/2023 10:15 EST Heart Rate Monitored 63 bpm Respiratory Rate Monitored 11 br/min Systolic Blood Pressure 157 mmHg HI Diastolic Blood Pressure 101 mmHg HI Blood Pressure Location Left arm Mean Arterial Pressure, Cuff 120 mmHg SpO2 100 % 04/18/2023 10:10 EST Heart Rate Monitored 90 bpm Respiratory Rate Monitored 14 br/min Systolic Blood Pressure 146 mmHg HI Diastolic Blood Pressure 108 mmHg HI Blood Pressure Location Left arm Mean Arterial Pressure, Cuff 121 mmHg SpO2 100 % 04/18/2023 10:07 EST Temperature Temporal Artery 36.6 DegC Heart Rate Monitored 85 bpm Respiratory Rate Monitored 18 br/min Systolic Blood Pressure 144 mmHg HI Diastolic Blood Pressure 102 mmHg HI Blood Pressure Location Left arm Mean Arterial Pressure, Cuff 116 mmHg SpO2 99 % Pain Assessment: Controlled, Pain Assessment 04/18/2023 10:07 EST Numeric Pain Scale 0 = No pain . General: Awake, Alert, Appropriate. Respiratory: Adequate air exchange, Non-labored. Cardiovascular: Stable, Normal peripheral perfusion. Neurological: Neurologic exam at baseline. No changes.. Assessment Anesthetic outcome No anesthetic complications noted. No nausea/vomiting. Review / Management Condition: Stable. Plan Transfer/Discharge: Transfer/Discharge Discharge when meets criteria ( From PACU to Ambulatory Surgery Unit, and To home ). [facility] Comment on above: Result Comment: Elec tronically Signed By: Aamir Patel Jr., DO\.br\Date and Time Signed: 04/18/23 10:49 EST Progress Note-Physician Patient: SUNSHINE RYDER Age: 23 years Sex: Female : 2000 Associated Diagnoses: None Author: Aamir Patel Jr., DO Preoperative Information Anesthesia Preop Info NPO since midnight Anesthesia history: Patient history: No prior anesthetic problems. Informed consent: Signed by patient. Re-evaluation prior to induction: Initial evaluation reviewed: No significant change. Health Status Allergies: Allergic Reactions (Selected) Severity Not Documented Codeine- Rash, hyperactivity and hives., Allergies (1) Active Severity Reaction codeine Hyperactivity, Rash, Hives Current medications: (Selected) Inpatient Medications Ordered HYDROmorphone 1 mg/mL injectable solution: 0.4 mg = 0.4 mL, Injection, IV Push, q4min PRN Pain for 5 dose(s), Stop date Limited # of times, Routine, Start date 04/18/23 7:55:00 EST, 04/18/23 7:55:00 EST Lactated Ringers IV Ally 1000 mL 1,000 mL: 1,000 mL, IV, 100 mL/hr, Routine, Start date 04/18/23 7:55:00 EST, 10 hour(s), Total volume (mL): 1,000, 94.7 kg, 2.08, m2 Lactated Ringers IV Ally 1000 mL 1,000 mL: 1,000 mL, IV, 150 mL/hr, Routine, Start date 04/18/23 7:00:00 EST, 6.7 hour(s), Total volume (mL): 1,000, 94.7 kg, 2.08, m2 cefazolin additive + Sodium Chloride 0.9% intravenous solution 50 mL: 2 gram = 1 EA, Powder-Inj, IV Piggyback, PREOP, Routine, Start date 04/18/23 7:13:00 EST, 100 mL/hr, Infuse over 30 minute(s) promethazine additive 25 mg + Sodium Chloride 0.9% IV Ally 50 mL (INT) 50 mL: IV Piggyback, Once, Stop date 04/18/23 8:00:00 EST, Routine, Start date 04/18/23 8:00:00 EST, 153 mL/hr, Infuse over 20 minute(s), 04/18/23 7:55:00 EST Documented Medications Documented Adderall: 25 mg, Oral, BID, Refill(s) 0 famotidine 20 mg Tab: 20 mg = 1 tab(s), Oral, Daily, Refills(s) 0, Control of stomach acid medroxyPROGESTERone 150 mg/mL IM Susp: 150 mg = 1 mL, IntraMuscular, q3mo, Refills(s) 0, control/menstrual regulation metoprolol 25 mg ER Tab: 25 mg = 1 tab(s), Oral, Daily, High blood pressure, Home Medications (4) Active Adderall 25 mg, Oral, BID famotidine 20 mg Tab 20 mg = 1 tab(s), Oral, Daily medroxyPROGESTERone 150 mg/mL IM Susp 150 mg = 1 mL, IntraMuscular, q3mo metoprolol 25 mg ER Tab 25 mg = 1 tab(s), Oral, Daily , Medications (5) Active Scheduled: (2) ceFAZolin + Sodium Chloride 0.9% Minibag 50 mL 2 gram 1 EA, IV Piggyback, PREOP promethazine 25 mg + Sodium Chloride 0.9% 50 mL 25 mg 1 mL, IV Piggyback, Once Continuous: (2) Lactated Ringers 1,000 mL 1,000 mL, IV, 150 mL/hr Lactated Ringers 1,000 mL 1,000 mL, IV, 100 mL/hr PRN: (1) HYDROmorphone 1 mg/mL SOLN [F] 0.4 mg 0.4 mL, IV Push, q4min Problem list: All Problems Abdominal pain / SNOMED CT 96822898 / Confirmed ADHD / SNOMED CT 6696373891 / Confirmed Flank pain / SNOMED CT 078377118 / Confirmed Hypertension / SNOMED CT 7514316962 / Confirmed Kidney stone / SNOMED CT 780266133 / Confirmed Smoker / SNOMED CT 063271398 / Confirmed Added secondary to documentation in Social History. Histories Past Medical History: No active or resolved past medical history items have been selected or recorded. Procedure history: Tonsillectomy (239435730). wisdom extraction ([id number]). Social History Social & Psychosocial Habits Alcohol 03/29/2023 Risk Assessment: Denies Alcohol Use Substance Abuse 03/29/2023 Risk Assessment: High Risk 03/29/2023 Use: Current Type: Marijuana Frequency: Several times per day Tobacco 03/29/2023 Smokeless tobacco use: Current vaping or e-cigar Type: Vaping 03/29/2023 Risk Assessment: High Risk . Physical Examination Vital Signs 04/18/2023 7:52 EST Heart Rate Monitored 55 bpm LOW Systolic Blood Pressure 139 mmHg Diastolic Blood Pressure 82 mmHg Mean Arterial Pressure, Monitered 101 mmHg 04/18/2023 7:51 EST Heart Rate Monitored 70 bpm SpO2 97 % 04/18/2023 7:51 EST Respiratory Rate 20 br/min 04/18/2023 7:51 EST Temperature Oral 36.4 DegC 04/18/2023 7:51 EST Systolic Blood Pressure 146 mmHg HI Diastolic Blood Pressure 92 mmHg HI Mean Arterial Pressure, Monitered 110 mmHg Airway: Mallampati classification: II (soft palate, fauces, uvula visible). Respiratory: Lungs are clear to auscultation, Respirations are non-labored. Cardiovascular: Regular rhythm. Review / Management Results review: Lab results 03/29/2023 11:01 EST WBC 5.7 E9/L RBC 4.4 E12/L HGB 13.2 gm/dL Hct 39.0 % MCV 89.0 fL MCH 30.1 pg MCHC 33.9 gm/dL RDW 13.0 % Platelet 225.0 E9/L MPV 9.5 fL Neutro Auto 54.6 % Lymph Auto 32.6 % Chambers Auto 10.3 % Eos Auto 1.7 % Basophil Auto 0.8 % Neutro Absolute 3.1 E9/L Lymph Absolute 1.9 E9/L Chambers Absolute 0.6 E9/L Eos Absolute 0.1 E9/L Basophil Absolute 0.0 E9/L PT 12.0 second(s) INR 1.1 NA PTT 33.2 second(s) Glucose Lvl 105 mg/dL BUN 15 mg/dL Creatinine 0.8 mg/dL eGFR 107 mL/min/1.73 m2 BUN/Creat Ratio 19 Sodium Lvl 136 mmol/L Potass (more content not included)... Normal [facility] Comment on above: Result Comment: Elec tronically Signed By: Aamir Patel Jr., DO\.br\Date and Time Signed: 04/18/23 07:56 EST SEROLOGYOrdered By: Juliane Mcdonnell on 04-18-2023 HCG.beta subunit (U) [Moles/Vol] Negative Normal [facility] Man Sero U BetaHcg Qualon 04-18-2023 HCG.beta subunit (U) [Moles/Vol] Negative Normal [facility] Comment on above: Performed By: #### 2 [id number] #### [facility] [address] [place] [address] XR Abdomen 1 Viewon 04-18-19 24 XR Abdomen 1 View Exam Date/Time: 04/18/2023 07:43 EST Reason for Exam: Kidney stone Report IMPRESSION: THERE ARE CALCIFICATIONS IN THE LEFT WHICH MAY REPRESENT RENAL STONES. CLINICAL HISTORY: Kidney stone COMPARISON: NONE. KUB FINDINGS: There are no distended loops of bowel. There is no evidence of obstruction. There are calcifications on the left measuring up to 12 mm which may represent renal stones. There are no acute osseous changes. Ordering Provider: Perry ESCOBAR FINAL REPORT Dictated: 04/18/2023 8:22 am Len Ceron MD, V. Signed (Electronic Signature): 04/18/2023 8:22 am Signed by: Len Ceron MD, V. Transcribed by: WILMER Technologist: ESTELLA Technical Comments Radiation Dose: Ka,r in mGy = 0 DAP = 0 Normal [facility] BMPon 03-29-2023 Anion gap [Moles/Vol] 11 mmol/L Normal 6-16 [facility] Comment on above: Performed By: #### 1 [id number] #### [facility] [address] [place] [address] BUN/Creat Ratio 19 No Units Normal 10-20 [facility] Comment on above: Performed By: #### 1 [id number] #### [facility] [address] [place] [address] Calcium [Mass/Vol] 8.6 mg/dL Low 8.9-11.1 [facility] Comment on above: Performed By: #### 1 [id number] #### [facility] [address] [place] [address] Chloride [Moles/Vol] 107 mmol/L Normal 101-111 [facility] Comment on above: Performed By: #### 1 [id number] #### [facility] [address] [place] [address] CO2 [Moles/Vol] 22 mmol/L Normal 21-31 [facility] Comment on above: Performed By: #### 1 [id number] #### [facility] [address] [place] [address] Creatinine [Mass/Vol] 0.8 mg/dL Normal 0.5-1.3 [facility] Comment on above: Performed By: #### 1 [id number] #### [facility] [address] [place] [address] Glucose [Mass/Vol] 105 mg/dL Normal 55-199 [facility] Comment on above: Performed By: #### 1 [id number] #### [facility] [address] [place] [address] Potassium [Moles/Vol] 3.9 mmol/L Normal 3.5-5.3 [facility] Comment on above: Performed By: #### 1 [id number] #### [facility] [address] [place] [address] Sodium [Moles/Vol] 136 mmol/L Normal 135-145 [facility] Comment on above: Performed By: #### 1 [id number] #### [facility] [address] [place] [address] Urea nitrogen [Mass/Vol] 15 mg/dL Normal 5-21 [facility] Comment on above: Performed By: #### 1 [id number] #### [facility] [address] [place] [address] CBC w/ Auto Diffon 4 Basophil Absolute 0.0 E9/L Normal 0.0-0.2 [facility] Comment on above: Performed By: #### 1 [id number] #### [facility] [address] [place] [address] Basophils/100 WBC (Bld) 0.8 % Normal 0.0-2.0 [facility] Comment on above: Performed By: #### 1 [id number] #### [facility] [address] [place] [address] Eos Absolute 0.1 E9/L Normal 0.0-0.5 [facility] Comment on above: Performed By: #### 1 [id number] #### [facility] [address] [place] [address] Eosinophils/100 WBC (Bld) 1.7 % Normal 0.0-8.0 [facility] Comment on above: Performed By: #### 1 [id number] #### [facility] [address] [place] [address] Erythrocyte distribution width (RBC) [Ratio] 13.0 % Normal 10.9-14.2 [facility] Comment on above: Performed By: #### 1 [id number] #### [facility] [address] [place] [address] Hematocrit (Bld) [Volume fraction] 39.0 % Normal 34.0-46.0 [facility] Comment on above: Performed By: #### 1 [id number] #### [facility] [address] [place] [address] Hemoglobin (Bld) [Mass/Vol] 13.2 g/dL Normal 12.0-16.0 [facility] Comment on above: Performed By: #### 1 [id number] #### [facility] [address] [place] [address] Lymph Absolute 1.9 E9/L Normal 1.0-4.0 [facility] Comment on above: Performed By: #### 1 [id number] #### [facility] [address] [place] [address] Lymphocytes/100 WBC (Bld) 32.6 % Normal 14.0-50.0 [facility] Comment on above: Performed By: #### 1 [id number] #### [facility] [address] [place] [address] MCH (RBC) [Entitic mass] 30.1 pg Normal 27.0-34.0 [facility] Comment on above: Performed By: #### 1 [id number] #### [facility] [address] [place] [address] MCHC (RBC) [Mass/Vol] 33.9 g/dL Normal 31.4-36.0 [facility] Comment on above: Performed By: #### 1 [id number] #### [facility] [address] [place] [address] MCV (RBC) [Entitic vol] 89.0 fL Normal 80.0-100.0 [facility] Comment on above: Performed By: #### 1 [id number] #### [facility] [address] [place] [address] Chambers Absolute 0.6 E9/L Normal 0.2-1.0 [facility] Comment on above: Performed By: #### 1 [id number] #### [facility] [address] [place] [address] Monocytes/100 WBC (Bld) 10.3 % Normal 4.0-14.0 [facility] Comment on above: Performed By: #### 1 [id number] #### [facility] [address] [place] [address] Neutro Absolute 3.1 E9/L Normal 2.0-7.5 [facility] Comment on above: Performed By: #### 1 [id number] #### [facility] [address] [place] [address] Neutro Auto 54.6 % Normal 36.0-75.0 [facility] Comment on above: Performed By: #### 1 [id number] #### [facility] [address] [place] [address] Platelet 225.0 E9/L Normal 150.0-500.0 [facility] Comment on above: Performed By: #### 1 [id number] #### [facility] [address] [place] [address] Platelet mean volume (Bld) [Entitic vol] 9.5 fL Normal 6.4-10.8 [facility] Comment on above: Performed By: #### 1 [id number] #### [facility] [address] [place] [address] RBC 4.4 E12/L Normal 4.3-5.9 [facility] Comment on above: Performed By: #### 1 [id number] #### [facility] [address] [place] [address] WBC 5.7 E9/L Normal 4.0-11.0 [facility] Comment on above: Performed By: #### 1 [id number] #### [facility] [address] [place] [address] CHEMISTRYOrdered By: SYSTEM SYSTEM on 03-29-2023 Anion gap [Moles/Vol] 11 mmol/L Normal 6 - 16 mEq/L Rem[facility] Chem Calcium [Mass/Vol] 8.6 mg/dL Low 8.9 - 11. 1 mg/dL [facility] Chloride [Moles/Vol] 107 mmol/L Normal 101 - 1 11 mmol/L [facility] CO2 [Moles/Vol] 22 mmol/L Normal 21 - 31 mmol/L [facility] Creatinine [Mass/Vol] 0.8 mg/dL Normal 0.5 - 1.3 mg/dL [facility] Chem eGFR 107 mL/min/1.73 m2 Normal >=59mL/mi n/ 1.73 m2 [facility] Glucose [Mass/Vol] 105 mg/dL Normal 55 - 199 mg/dL [facility] Potassium [Moles/Vol] 3.9 mmol/L Normal 3.5 - 5.3 mmol/L [facility] Sodium [Moles/Vol] 136 mmol/L Normal 135 - 145 mmol/L [facility] Urea nitrogen [Mass/Vol] 15 mg/dL Normal 5 - 21 mg/dL [facility] Urea nitrogen/Creatinine [Mass ratio] 19 mg/mg Normal 10 - 20 [facility] COAGULATIONOrdered By: Barb Reyna on 03-29-2023 aPTT Coag (PPP) [Time] 33.2 s Normal 25.1 - 36.5 second(s) [facility] Coag Comment on above: Interpretive Data: P arameter 15 days - 4 weeks 1 - 5 months 6 - 11 months 1 - 5 years 6 - 10 years 11 - 17 years PTT Mean: 35.4 (27.6-45.6) Mean: 33.5 (24.8-40.7) Mean: 32.4 (25.1-40.7) Mean: 31.6 (24.0-39.2) Mean: 31.6 (26.9-38.7) Mean: 31.0 (24.6-38.4) Pediatric Reference ranges were obtained from a study by Robert Casillas et al. prepared from 1437 samples obtained at 7 different centers using the same coagulation reagent and instrumentation as [facility]. Currently there are no coagulation studies available worldwide for children to 14 days, and no normal ranges. Heparin therapeutic range (represented by Anti-Factor Xa activity of 0.2 - 0.4 U/mL) corresponds to PTT of 56.6 - 109.0 sec. INR Coag (PPP) [Relative time] 1.1 {INR} Invalid Interpretation Code [facility] Comment on above: Interpretive Data: I NR results are specifically intended to assess patients stabilized on long-term Anticoagulation therapy suggested INR s Less Intensive Anticoagulation 2.0 3.0 Conventional Range 3.0 4.5 PT Coag (PPP) [Time] 12.0 s Normal 9.4 - 1 2.5 second(s) [facility] Comment on above: Interpretive Data: 1 5 days - 4 weeks 1 - 5 months 6 -11 months 1 5 years 6 10 years 11 -17 years Mean: 11.2 (9.5 12.6) Mean: 11.0 (9.7 12.8) Mean: 11.0 (9.8 13.0) Mean: 11.3 (9.9 13.4) Mean: 11.7 (10.0 14.6) Mean: 11.8 (10.0 - 14.1) Pediatric Reference ranges were obtained from a study by Robert Casillas et al. prepared from 1437 samples obtained at 7 different centers using the same coagulation reagent and instrumentation as [facility]. Currently there are no coagulation studies available worldwide for children to 14 days, and no normal ranges. Consent for Treatmenton Consent for Treatment [id number] 0TIFF Normal [facility] HEMATOLOGYOrdered By: SYSTEM SYSTEM on 03-29-2023 Basophil Absolute 0.0 E9/L Normal 0.0 - 0.2 E9/L Remisol Heme Basophils/100 WBC (Bld) 0.8 % Normal 0.0 - 2.0 % [facility] Heme Eos Absolute 0.1 E9/L Normal 0.0 - 0.5 E9/L Rem[facility] Heme Eosinophils/100 WBC (Bld) 1.7 % Normal 0.0 - 8.0 % [facility]e Erythrocyte distribution width (RBC) [Ratio] 13.0 % Normal 10.9 - 14.2 % [facility] Hematocrit (Bld) [Volume fraction] 39.0 % Normal 34.0 - 46.0 % [facility]e Hemoglobin (Bld) [Mass/Vol] 13.2 g/dL Normal 12.0 - 16.0 gm/dL [facility] Lymph Absolute 1.9 E9/L Normal 1.0 - 4.0 E9/L [facility] Heme Lymphocytes/100 WBC (Bld) 32.6 % Normal 14.0 - 50.0 % Rem[facility] Heme MCH (RBC) [Entitic mass] 30.1 pg Normal 27.0 - 34.0 pg Remisol Heme MCHC (RBC) [Mass/Vol] 33.9 g/dL Normal 31.4 - 36.0 gm/dL [facility] Heme MCV (RBC) [Entitic vol] 89.0 fL Normal 80.0 - 100.0 fL [facility] Heme Chambers Absolute 0.6 E9/L Normal 0.2 - 1.0 E9/L [facility]e Monocytes/100 WBC (Bld) 10.3 % Normal 4.0 - 14.0 % [facility]e Neutro Absolute 3.1 E9/L Normal 2.0 - 7.5 E9/L [facility] Heme Neutro Auto 54.6 % Normal 36.0 - 75.0 % [facility] Platelet 225.0 E9/L Normal 150.0 - 500.0 E9/L Rem[facility] Heme Platelet mean volume (Bld) [Entitic vol] 9.5 fL Normal 6.4 - 10.8 fL Rem[facility] Heme RBC 4.4 E12/L Normal 4.3 - 5.9 E12/L [facility] Heme WBC 5.7 E9/L Normal 4.0 - 11.0 E9/L Remisol Heme PT & PTTon 03-29-2023 aPTT Coag (PPP) [Time] 33.2 second(s) Normal 25.1-36.5 [facility] Comment on above: Result Comment: Para meter 15 days - 4 weeks 1 - 5 months 6 - 11 months 1 - 5 years 6 - 10 years 11 - 17 years PTT Mean: 35.4 (27.6-45.6) Mean: 33.5 (24.8-40.7) Mean: 32.4 (25.1-40.7) Mean: 31.6 (24.0-39.2) Mean: 31.6 (26.9-38.7) Mean: 31.0 (24.6-38.4) Pediatric Reference ranges were obtained from a study by Robert Casillas et al. prepared from 1437 samples obtained at 7 different centers using the same coagulation reagent and instrumentation as [facility]. Currently there are no coagulation studies available worldwide for children to 14 days, and no normal ranges. Heparin therapeutic range (represented by Anti-Factor Xa activity of 0.2 - 0.4 U/mL) corresponds to PTT of 56.6 - 109.0 sec. Performed By: #### 1 [id number] #### [facility] [address] [place] [address] INR Coag (PPP) [Relative time] 1.1 {INR} Invalid Interpretation Code [facility] Comment on above: Result Comment: INR results are specifically intended to assess patients stabilized on long-term Anticoagulation therapy suggested INR?s ?Less Intensive Anticoagulation? 2.0 ? 3.0 Conventional Range 3.0 ? 4.5 Performed By: #### 1 [id number] #### [facility] [address] [place] [address] PT Coag (PPP) [Time] 12.0 second(s) Normal 9.4-12.5 [facility] Comment on above: Result Comment: 15 d ays - 4 weeks 1 - 5 months 6 -11 months 1 ? 5 years 6 ? 10 years 11 -17 years Mean: 11.2 (9.5 ? 12.6) Mean: 11.0 (9.7 ? 12.8) Mean: 11.0 (9.8 ? 13.0) Mean: 11.3 (9.9 ? 13.4) Mean: 11.7 (10.0 ? 14.6) Mean: 11.8 (10.0 - 14.1) Pediatric Reference ranges were obtained from a study by Robert Casillas et al. prepared from 1437 samples obtained at 7 different centers using the same coagulation reagent and instrumentation as [facility]. Currently there are no coagulation studies available worldwide for children to 14 days, and no normal ranges. Performed By: #### 1 [id number] #### [facility] [address] [place] [address] UA With Cult Reflexon 2023 Bacteria LM Ql (Urine sed) TRACE Normal Trace [facility] Comment on above: Performed By: #### 1 [id number] #### [facility] [address] [place] [address] Bilirubin Ql (U) Negative Normal Negative [facility] Comment on above: Performed By: #### 1 [id number] #### [facility] [address] [place] [address] Clarity (U) CLEAR Normal Clear [facility] Comment on above: Performed By: #### 1 [id number] #### [facility] [address] [place] [address] Color (U) YELLOW Normal Yellow [facility] Comment on above: Performed By: #### 1 [id number] #### [facility] [address] [place] [address] Epithelial cells.squamous LM.HPF (Urine sed) [#/Area] 5-8 Normal 0-2 [facility] Comment on above: Performed By: #### 1 [id number] #### [facility] [address] [place] [address] Glucose Test strip (U) [Mass/Vol] Negative Normal Negative [facility] Comment on above: Performed By: #### 1 [id number] #### [facility] [address] [place] [address] Hemoglobin Ql (U) TRACE Abnormal Negative [facility] Comment on above: Performed By: #### 1 [id number] #### [facility] [address] [place] [address] Ketones (U) [Mass/Vol] Negative Normal Negative [facility] Comment on above: Performed By: #### 1 [id number] #### [facility] [address] [place] [address] Comerio.plasma/Lithiu m.RBC (Bld) [Mass ratio] 4-20 Normal 0-3 [facility] Comment on above: Performed By: #### 1 [id number] #### [facility] [address] [place] [address] Nitrite Ql (U) Negative Normal Negative [facility] Comment on above: Performed By: #### 1 [id number] #### [facility] [address] [place] [address] pH (U) 6.5 [pH] Invalid Interpretation Code 5.0-9.0 [facility] Comment on above: Performed By: #### 1 [id number] #### [facility] [address] [place] [address] Protein (U) [Mass/Vol] Negative Normal Negative [facility] Comment on above: Performed By: #### 1 [id number] #### [facility] [address] [place] [address] Specific gravity (U) [Rel density] 1.010 Invalid Interpretation Code 1.005-1.030 [facility] Comment on above: Performed By: #### 1 [id number] #### [facility] [address] [place] [address] Type of Urine collection method Clean Catch Normal [facility] Comment on above: Performed By: #### 1 [id number] #### [facility] [address] [place] [address] Urobilinogen Qn (U) 0.2 {Kellee'U}/dL Normal 0.0-1.0 [facility] Comment on above: Performed By: #### 1 [id number] #### [facility] [address] [place] [address] WBC Auto Ql (U) Negative Normal Negative [facility] Comment on above: Performed By: #### 1 [id number] #### [facility] [address] [place] [address] WBC LM.HPF (Urine sed) [#/Area] 0-5 Normal 0-5 [facility] Comment on above: Performed By: #### 1 [id number] #### [facility] [address] [place] [address] URINALYSISOrdered By: Fabi Reyna on 03-29-2023 Bacteria LM Ql (Urine sed) Trace /HPF Normal Trace/HPF [facility] UA Auto SS Bilirubin Ql (U) Negative (03/29/23 11:01 AM) Normal Negative [facility] Auto SS Clarity (U) Clear (03/29/23 11:01 AM) Normal Clear [facility] UA Auto SS Color (U) Yellow (03/29/23 11:01 AM) Normal Yellow [facility] UA Auto SS Epithelial cells.squamous LM.HPF (Urine sed) [#/Area] 5-8 /HPF Normal 0-2/HPF [facility] UA Aut o SS Glucose Test strip (U) [Mass/Vol] Negative (03/29/23 11:01 AM) Normal Negative [facility] UA Auto SS Hemoglobin Ql (U) Trace *ABN* (03/29/23 11:01 AM) Invalid Interpretation Code Negative [facility] UA Auto SS Ketones (U) [Mass/Vol] Negative (03/29/23 11:01 AM) Normal Negative [facility] UA Auto SS Comerio.plasma/Lithiu m.RBC (Bld) [Mass ratio] 4-20 /HPF Normal 0-3/HPF [facility] UA Auto SS Nitrite Ql (U) Negative (03/29/23 11:01 AM) Normal Negative [facility] UA Auto SS pH (U) 6.5 *NA* (03/29/23 11:01 AM) Invalid Interpretation Code 5.0 - 9.0 [facility] UA Auto SS Protein (U) [Mass/Vol] Negative (03/29/23 11:01 AM) Normal Negative [facility] UA Auto SS Specific gravity (U) [Rel density] 1.010 *NA* (03/29/23 11:01 AM) Invalid Interpretation Code 1.005 - 1.030 [facility] UA Auto SS UA Spec Desc Clean Catch (03/29/23 11:01 AM) Normal [facility] UA Auto SS Urobilinogen Qn (U) 0.1995923 {Kellee'U}/dL Normal 0.0 - 1.0 EU/dL [facility] UA Auto SS WBC Auto Ql (U) Negative (03/29/23 11:01 AM) Normal Negative [facility] UA Auto SS WBC LM.HPF (Urine sed) [#/Area] 0-5 /HPF Normal 0-5/HPF [facility] UA Auto SS eGFRon 03-29-2023 eGFR 107 mL/min/1.73 m2 Normal >=59 [facility] Comment on above: Order Comment: Order added by Discern Expert. Performed By: #### 1 [id number] #### [facility] [address] [place] [address] RAD - CT Reporton 03-22-2023 RAD - CT Report [id number]. 00TIFF [facility] RAD - MISCon 03-22-2023 RAD - MISC [id number]. 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 Discharge Vitals Blood Pressure 130/84 Height 160 cm Height 63 in Weight 94.8 kg Weight 208.56 lb BMI 37.03 What to do next You Need to Schedule the Following Appointments Follow Up with SHAWN COOK, AAMIR Taylor When: Comments: Schedule stone procedure Where: [address] [place], [place] [id number] Medications What How Much When Instructions Unchanged amphetamine-dextroamph etamine (Adderall) 25 Milligram By Mouth 2 times a day Contact prescribing physician if questions or concerns Unchanged amphetamine-dextroamph etamine (amphetamine-dextroamp hetamine 15 mg oral tablet) Contact prescribing physician if questions or concerns Allergies codeine (Unknown) Problems Ongoing - Any problem that you are currently receiving treatment for. Abdominal pain Flank pain Kidney stone Patient Survey You may receive a survey via text or e-mail asking about your office visit. Please share your experience with us by completing your survey. We appreciate your feedback and thank you for choosing us for your care. Education Materials Dietary Guidelines to Help Prevent Kidney Stones Kidney stones are deposits of minerals and salts that form inside your kidneys. Your risk of developing kidney stones may be greater depending on your diet, your lifestyle, the medicines you take, and whether you have certain medical conditions. Most people can lower their risks of developing kidney stones by following these dietary guidelines. Your dietitian may give you more specific instructions depending on your overall health and the type of kidney stones you tend to develop. What are tips for following this plan? Reading food labels ? Choose foods with no salt added or low-salt labels. Limit your salt (sodium) intake to less than 1,500 mg a day. ? Choose foods with calcium for each meal and snack. Try to eat about 300 mg of calcium at each meal. Foods that contain 200?500 mg of calcium a serving include: ? 8 oz (237 mL) of milk, ndvpzsx-kvzragltclzq-g airy milk, and calcium-fortifiedfruit juice. Calcium-fortified means that calcium has been added to these drinks. ? 8 oz (237 mL) of kefir, yogurt, and soy yogurt. ? 4 oz (114 g) of tofu. ? 1 oz (28 g) of cheese. ? 1 cup (150 g) of dried figs. ? 1 cup (91 g) of cooked broccoli. ? One 3 oz (85 g) can of sardines or mackerel. Most people need 1,000?1,500 mg of calcium a day. Talk to your dietitian about how much calcium is recommended for you. Shopping ? Buy plenty of fresh fruits and vegetables. Most people do not need to avoid fruits and vegetables, even if these foods contain nutrients that may contribute to kidney stones. ? When shopping for convenience foods, choose: ? Whole pieces of fruit. ? Pre-made salads with dressing on the side. ? Low-fat fruit and yogurt smoothies. ? Avoid buying frozen meals or prepared deli foods. These can be high in sodium. ? Look for foods with live cultures, such as yogurt and kefir. ? Choose high-fiber grains, such as whole-wheat breads, oat bran, and wheat cereals. Cooking ? Do not add salt to food when cooking. Place a salt shaker on the table and allow each person to add their own salt to taste. ? Use vegetable protein, such as beans, textured vegetable protein (TVP), or tofu, instead of meat in pasta, casseroles, and soups. Meal planning ? Eat less salt, if told by your dietitian. To do this: ? Avoid eating processed or pre-made food. ? Avoid eating fast food. ? Eat less animal protein, including cheese, meat, poultry, or fish, if told by your dietitian. To do this: ? Limit the number of times you have meat, poultry, fish, or cheese each week. Eat a diet free of meat at least 2 days a week. ? Eat only one serving each day of meat, poultry, fish, or seafood. ? When you prepare animal proteins, cut pieces into small portion sizes. For most meat and fish, one serving is about the size of the palm of your hand. ? Eat at least five servings of fresh fruits and vegetables each day. To do this: ? Keep fruits and vegetables on hand for snacks. ? Eat one piece of fruit or a handful of berries with breakfast. ? Have a salad and fruit at lunch. ? Have two kinds of vegetables at dinner. ? You may be told to limit foods that are high in a substance called oxalate. These include: ? Spin (more content not included)... [facility] Formson 03-19-2023 Forms [id number] 10 [id number] 0TIFF [facility] Patient Educationon 03-19-19 24 Patient Education Nephrology Dietary Guidelines to Help Prevent Kidney Stones Kidney stones are deposits of minerals and salts that form inside your kidneys. Your risk of developing kidney stones may be greater depending on your diet, your lifestyle, the medicines you take, and whether you have certain medical conditions. Most people can lower their risks of developing kidney stones by following these dietary guidelines. Your dietitian may give you more specific instructions depending on your overall health and the type of kidney stones you tend to develop. What are tips for following this plan? Reading food labels ? Choose foods with no salt added or low-salt labels. Limit your salt (sodium) intake to less than 1,500 mg a day. ? Choose foods with calcium for each meal and snack. Try to eat about 300 mg of calcium at each meal. Foods that contain 200?500 mg of calcium a serving include: ? 8 oz (237 mL) of milk, gfunbnp-lpkhffodxjhq-a airy milk, and calcium-fortifiedfruit juice. Calcium-fortified means that calcium has been added to these drinks. ? 8 oz (237 mL) of kefir, yogurt, and soy yogurt. ? 4 oz (114 g) of tofu. ? 1 oz (28 g) of cheese. ? 1 cup (150 g) of dried figs. ? 1 cup (91 g) of cooked broccoli. ? One 3 oz (85 g) can of sardines or mackerel. Most people need 1,000?1,500 mg of calcium a day. Talk to your dietitian about how much calcium is recommended for you. Shopping ? Buy plenty of fresh fruits and vegetables. Most people do not need to avoid fruits and vegetables, even if these foods contain nutrients that may contribute to kidney stones. ? When shopping for convenience foods, choose: ? Whole pieces of fruit. ? Pre-made salads with dressing on the side. ? Low-fat fruit and yogurt smoothies. ? Avoid buying frozen meals or prepared deli foods. These can be high in sodium. ? Look for foods with live cultures, such as yogurt and kefir. ? Choose high-fiber grains, such as whole-wheat breads, oat bran, and wheat cereals. Cooking ? Do not add salt to food when cooking. Place a salt shaker on the table and allow each person to add their own salt to taste. ? Use vegetable protein, such as beans, textured vegetable protein (TVP), or tofu, instead of meat in pasta, casseroles, and soups. Meal planning ? Eat less salt, if told by your dietitian. To do this: ? Avoid eating processed or pre-made food. ? Avoid eating fast food. ? Eat less animal protein, including cheese, meat, poultry, or fish, if told by your dietitian. To do this: ? Limit the number of times you have meat, poultry, fish, or cheese each week. Eat a diet free of meat at least 2 days a week. ? Eat only one serving each day of meat, poultry, fish, or seafood. ? When you prepare animal proteins, cut pieces into small portion sizes. For most meat and fish, one serving is about the size of the palm of your hand. ? Eat at least five servings of fresh fruits and vegetables each day. To do this: ? Keep fruits and vegetables on hand for snacks. ? Eat one piece of fruit or a handful of berries with breakfast. ? Have a salad and fruit at lunch. ? Have two kinds of vegetables at dinner. ? You may be told to limit foods that are high in a substance called oxalate. These include: ? Spinach (cooked), rhubarb, beets, sweet potatoes, and English chard. ? Peanuts. ? Potato chips, citizen of [place] fries, and baked potatoes with skin on. ? Nuts and nut products. ? Chocolate. ? If you regularly take a diuretic medicine, make sure to eat at least 1 or 2 servings of fruits or vegetables that are high in potassium each day. These include: ? Avocado. ? Banana. ? Schleicher, prune, carrot, or tomato juice. ? Baked potato. ? Cabbage. ? Beans and split peas. Lifestyle ? Drink enough fluid to keep your urine pale yellow. This is the most important thing you can do. Spread your fluid intake throughout the day. ? If you drink alcohol: ? Limit how much you have to: ? 0?1 drink a day for women who are not . ? 0?2 drinks a day for men. ? Know how much alcohol is in your drink. In the [place] one drink equals one 12 oz bottle of beer (355 mL), one 5 oz glass of wine (148 mL), or one 1? oz glass of hard liquor (44 mL). ? Lose weight if told by your health care provider. Work with your dietitian to find an eating plan and weight loss strategies that work best for you. General information ? Talk to your health care provider and dietitian about taking daily supplements. Depending on your health and the cause of your kidney stones, you may be told: ? Do not take high-dose supplements of vitamin C (1,000 mg a day or more). ? To take a calcium supplement. ? To take a daily probiotic supplement. ? To take other supplements such as magnesium, fish oil, or vitamin B6. ? Take kght-nnm-zfsaqhx and prescription medicines only as told by your health care provider. These include supplements. What foods sh (more content not included)... [facility] RAD - MISCon 03-19-2023 RAD - MIS [id number] 0TIFF [facility] Urology Office/Clinic Noteon 03-19-2023 Urology Office/Clinic Note Chief Complaint F/U with K[facility] HPI Staff New Pt. Pt was last seen on 12/23/2019. Pt was seen at [facility] on 01/22/23 due to left sided abdominal pain. CT SCAN 01/22/23 Previous DX: kidney stone. Dysuria: _denies Incomplete bladder emptying: _not all the time Hematuria: _Seen blood occasionally started with ER visit a couple weeks ago was the last time she seen urine Frequency: every couple hours Urgency: denies Nocturia: 1-2x nightly Stream: denies hesitation, normal stream Leaking: denies Post void dripping: sometimes Wearing pads/ Depends: denies Urge incontinence: denies Stress incontinence: sometimes Incontinence without Sensory Awareness: denies Abdominal pain: denies Flank pain: denies Sexual complaints: denies History of Present Illness Tests reviewed: reviewed UA and External Records. I have reviewed the previous health record information and history for this patient from External Provider. I have reviewed and verified the staff HPI to be accurate for this encounter. There have been no associated fever, chills, flank pain, or blood in the urine. Denies any urinary infections since last encounter. Review of Systems PHQ Score Initial Depression Screen Score: 0 SCORE ROS - Provider Constitutional: denies weight loss, denies hot flashes. Eyes: denies eye problems. Gastrointestinal: denies nausea, denies vomiting. Cardiovascular: denies chest pain or angina. Integumentary: no dryness Musculoskeletal: denies musculoskeletal symptoms. ENMT: denies otolaryngeal symptoms. Respiratory: no shortness of breath. Heme/Lymph: denies easy bleeding tendency, denies easy bruising tendency. Psychiatric: no confusion, no anxiety. Genitourinary: See HPI. Physical Exam Vitals & Measurements BP: 130/84 HT: 63 in HT: 160 cm WT: 94.8 kg WT: 208.56 lb BMI: 37.03 General Appearance: alert , no acute distress, well nourished, well developed female. Head: normocephalic . Eyes: normal orbit and globe. ENMT: normal examination of external ears. Chest: Lungs CTA, respirations non labored . Cardiovascular: regular rate and rhythm. Abdomen: soft, non distended, no tenderness, no mass or organomegaly, no hernia. Genitourinary: bladder nonpalpable, no flank tenderness. Lymph Nodes: unremarkable palpation of the cervical area. Skin: warm, dry, no bruising. Psychiatric: cooperative, affect appropriate for age, normal judgement, euthymic mood. Assessment/Plan 1. Kidney stone (N20.0: Calculus of kidney) Pt was seen at [facility] on 01/22/23 due to left sided abdominal pain. CT AP w/o Con 01/22/23 - bilateral nonobstructing punctate stones, as well as stones measuring 5mm and 8mm withing the lower pole of the Lt kidney. [facility]UB 03/19/23 - multiple Lt renal stones, largest measuring up to 9mm Discussed the imaging findings with pt. Discussed doing a metabolic workup to determine why she is forming stones. Counseled pt on the treatment options the pt would be able to get done for the current stones she has. Pt states that she would like to have the stones treated to prevent going into the ER for pain in the future. Counseled pt on the dietary modifications she can do to prevent future stones. All questions/concerns were discussed. Pt to call the office if she encounters any issues prior. Pt acknowledges understanding. -Will order LithoLink. Will call pt with results once she has this done. -Will schedule Cysto, Lt ureteroscopy, LT RGP, LT ESWL, LT stent placement. The procedure risks, benefits, details and treatment alternatives have been discussed with the patient. These include blood in the urine, infection, bleeding around the kidney, kidney bruising, inability to break up the stone, need for blood transfusion, blockage from stone fragments, and need for additional procedures, among others. Full informed consent has been obtained. Will order General anesthesia. -Dietary modifications. 2. Abdominal pain (R10.9: Unspecified abdominal pain) -See #1 Overall this patient with a prior history of kidney stones about 3 years ago presented to the ER with some blood in the urine and flank pain. Presumably she passed a small stone. She has remaining stones in the left kidney up to 9 mm. We discussed all the options and she wishes to proceed with a cystoscopy and a left stent to protect the kidney from obstruction after lithotripsy and ESWL. All of this has been explained to her and she wants to proceed. She understands the risk of anesthesia itself, including heart and lung problems. She knows this may be a staged procedure and could require eventual nephroscopy and laser lithotripsy as well. In the meantime she does want to proceed with a metabolic workup. She agrees with the plan Follow-up With When Contact Information Perry ESCOBAR MD, URL [address] [place] [id number]- Additional Instructions: Schedule stone procedure Patient Education Dietary Guidelines to Help Prevent Kidney (more content not included)... [facility] Comment on above: Result Comment: Elec tronically Signed By: Perry ESCOBAR MD\.br\Date and Time Signed: 03/19/23 10:22 EST\.br\Electronically Co-Signed By: Suzan Riley\.br\Date and Time Co-Signed: 03/19/23 10:19 EST ED Note-Physicianon 02-05-20 23 ED Note-Physician [id number] 0TIFF [facility] PREG QUANT HCGon 05-18-2022 HCG QUANT <1 [facility] Comment on above: Performed By: #### P REGQNT #### [facility] [address] [place] [address] Dr. Michael Vigil HCG RANGE SEE BELOW Normal [facility] Comment on above: Result Comment: 5-50 0.2-1 WEEK 50-500 1-2 WEEKS 100-5,000 2-3 WEEKS 500-10,000 3-4 WEEKS 1,000-50,000 4-5 WEEKS 10,000-100,000 5-6 WEEKS 15,000-200,000 6-8 WEEKS 10,000-100,000 2-3 MONTHS Performed By: #### P REGQNT #### [facility] [address] [address] [address] Michael Vigil Office Visiton 02-01-2022 Follow-up visit [id number] Ana Luisa Ryder liliam D 2000 Date Provider Department Center 02/01/2022 ANTOINE GLEZ CARD [facility] Family History Problem Relation Age of Onset Hypertension Mother Heart attack Maternal Grandmother Heart attack Maternal Grandfather Stroke Maternal Grandfather Family Status - Relation Status Age at Mother Maternal Grandmother Maternal Grandfather Level of Service:[id number] NE OFFICE/OUTPATIENT NEW MODERATE MDM 45-59 MINUTES Reason for Visit and Comments: Dizziness [[id number]] Normal [facility] Orders Onlyon 02-01-2022 Orders Only [id number] Ana Luisa Ryder liliam D 2000 Provider Department Center 02/01/2022 APRIL COSME CARD [facility] Family History Problem Relation Age of Onset Hypertension Mother Heart attack Maternal Grandmother Heart attack Maternal Grandfather Stroke Maternal Grandfather Family Status - Relation Status Age at Mother Maternal Grandmother Maternal Grandfather Normal [facility] CBC AUTO DIFFon 08-31-2021 BASO # 0.1 103/ul Normal 0.0-0.1 [facility] Comment on above: Performed By: #### C BC #### [facility] [address] [address] [address] Michael Vigil Basophils/100 WBC (Bld) 0.5 % Normal 0.2-2.0 [facility] Comment on above: Performed By: #### C BC #### [facility] [address] [address] [address] Michael Vigil EO # 0.1 103/ul Normal 0.0-0.7 [facility] Comment on above: Performed By: #### C BC #### [facility] [address] [address] [address] Michael Vigil Eosinophils/100 WBC (Bld) 1.3 % Normal 0.9-7.0 [facility] Comment on above: Performed By: #### C BC #### [facility] [address] [address] [address] Michael Vigil Erythrocyte distribution width (RBC) [Ratio] 12.5 % Normal 11.0-15.0 [facility] Comment on above: Performed By: #### C BC #### [facility] [address] [place] [address] Dr. Michael Vigil Hematocrit (Bld) [Volume fraction] 43.9 % Normal 36.0-48.0 [facility] Comment on above: Performed By: #### C BC #### [facility] [address] [place] [address] Dr. Michael Vigil Hemoglobin (Bld) [Mass/Vol] 14.7 g/dL Normal 12.0-16.0 [facility] Comment on above: Performed By: #### C BC #### [facility] [address] [place] [address] Dr. Michael Vigil IG # 0.03 10e3/ul Normal 0.00-0.03 [facility] Comment on above: Performed By: #### C BC #### [facility] [address] [place] [address] Dr. Michael Vigil IG % 0.3 % Normal 0.0-0.5 [facility] Comment on above: Performed By: #### C BC #### [facility] [address] [place] [address] Dr. Michael Vigil LYMPH # 3.0 103/ul Normal 1.2-3.8 [facility] Comment on above: Performed By: #### C BC #### [facility] [address] [place] [address] Dr. Michael Vigil Lymphocytes/100 WBC (Bld) 32.0 % Normal 20.5-60.0 [facility] Comment on above: Performed By: #### C BC #### [facility] [address] [place] [address] Dr. Michael Vigil MANUAL DIFF REQ NO Normal [facility] Comment on above: Performed By: #### C BC #### [facility] [address] [place] [address] Dr. Michael Vigil MCH (RBC) [Entitic mass] 30.2 pg Normal 26.7-34.0 [facility] Comment on above: Performed By: #### C BC #### [facility] [address] [address] [address] Michael Vigil MCHC (RBC) [Mass/Vol] 33.5 g/dL Normal 29.9-35.2 [facility] Comment on above: Performed By: #### C BC #### [facility] [address] [address] [address] Michael Vigil MCV (RBC) [Entitic vol] 90.1 fL Normal 81.0-99.0 [facility] Comment on above: Performed By: #### C BC #### [facility] [address] [place] [address] Dr. Michael Vigil MONO # 0.7 103/ul Normal 0.3-0.8 [facility] Comment on above: Performed By: #### C BC #### [facility] [address] [place] [address] Dr. Michael Vigil Monocytes/100 WBC (Bld) 7.8 % Normal 1.7-12.0 [facility] Comment on above: Performed By: #### C BC #### [facility] [address] [place] [address] Dr. Michael Vigil NEUT # 5.3 103/ul Normal 1.4-6.5 [facility] Comment on above: Performed By: #### C BC #### [facility] [address] [place] [address] Dr. Michael Vigil Neutrophils/100 WBC (Bld) 58.1 % Normal 43.0-75.0 [facility] Comment on above: Performed By: #### C BC #### [facility] [address] [place] [address] Dr. Michael Vigil Platelet mean volume (Bld) [Entitic vol] 10.3 fL Normal 9.5-13.5 [facility] Comment on above: Performed By: #### C BC #### [facility] [address] [place] [address] Dr. Michael Vigil PLT 292 103/ul Normal 150-450 [facility] Comment on above: Performed By: #### C BC #### [facility] [address] [place] [address] Dr. Michael Vigil RBC 4.87 106/ul Normal 4.20-5.40 [facility] Comment on above: Performed By: #### C BC #### [facility] [address] [place] [address] Dr. Michael Vigil WBC 9.2 103/ul Normal 4.0-11.0 [facility] Comment on above: Performed By: #### C BC #### [facility] [address] [place] [address] Dr. Michael Vigil PROF CHEM 8 (BAS METB)on Anion gap [Moles/Vol] 12.3 mmol/L Normal [facility] Comment on above: Performed By: #### B MP #### [facility] [address] [place] [address] Dr. Michael Vigil Calcium [Mass/Vol] 9.1 mg/dL Normal 8.5-10.1 [facility] Comment on above: Performed By: #### B MP #### [facility] [address] [place] [address] Dr. Michael Vigil Chloride [Moles/Vol] 106 mmol/L Normal 98-107 [facility] Comment on above: Performed By: #### B MP #### [facility] [address] [place] [address] Dr. Michael Vigil CO2 [Moles/Vol] 26.0 mmol/L Normal 21.0-32.0 [facility] Comment on above: Performed By: #### B MP #### [facility] [address] [place] [address] Dr. Michael Vigil Creatinine [Mass/Vol] 0.97 mg/dL Normal 0.55-1.02 [facility] Comment on above: Performed By: #### B MP #### [facility] [address] [place] [address] Dr. Michael Vigil EGFR-AF TRISTANIAN >60 Normal >=60 [facility] Comment on above: Performed By: #### B MP #### [facility] [address] [address] [address] Michael Vigil EGFR-NON AF TRISTANIAN >60 Normal >=60 [facility] Comment on above: Performed By: #### B MP #### [facility] [address] [address] [address] Michael Vigil Glucose [Mass/Vol] 96 mg/dL Normal 74-106 [facility] Comment on above: Performed By: #### B MP #### [facility] [address] [address] [address] Michael Vigil Potassium [Moles/Vol] 4.3 mmol/L Normal 3.5-5.1 [facility] Comment on above: Performed By: #### B MP #### [facility] [address] [address] [address] Michael Vigil Sodium [Moles/Vol] 140 mmol/L Normal 136-[address] [facility] Comment on above: Performed By: #### B MP #### [facility] [address] [address] [address] Michael Vigil Urea nitrogen [Mass/Vol] 18.0 mg/dL Normal 6.4-19.3 [facility] Comment on above: Performed By: #### B MP #### [facility] [address] [address] [address] Michael Vigil Urea nitrogen/Creatinine [Mass ratio] 18.6 mg/mg Normal [facility] Comment on above: Performed By: #### B MP #### [facility] [address] [address] [address] Michael Vigil COVID Quick Testingon 2020 Result Negative [facility] Phase Holographic Imaging Other Quick Strepon 02-09-2021 S. pyogenes Org specific cx Ql (Throat) Negative [facility] Phase Holographic Imaging Other Quick Strep [facility] Phase Holographic Imaging Other Vital Signs Date Time Vital Sign Value Performing Clinician Facility 04-18-2023 10:48-0500 SaO2% (BldA) [Mass fraction] 98 % Perry [employer] [facility] 04-18-2023 10:41-0500 Heart rate 53 /min Perry ESCOBAR [facility] 04-18-2023 10:41-0500 SaO2% (BldA) [Mass fraction] 99 % Perry ESCOBAR [facility] 04-18-2023 10:41-0500 Diastolic blood pressure 85 mm[Hg] Perry ESCOBAR [facility] 04-18-2023 10:41-0500 Mean blood pressure 104 mm[Hg] Perry ESCOBAR [facility] 04-18-2023 10:41-0500 Systolic blood pressure 140 mm[Hg] Perry ESCOBAR [facility] 04-18-2023 10:40-0500 Respiratory rate 18 /min Perry ESCOBAR [facility] 04-18-2023 10:35-0500 Blood Pressure Location Perry ESCOBAR [facility] 04-18-2023 10:35-0500 Body temperature 97.88 [degF] Perry ESCOBAR [facility] 04-18-2023 10:35-0500 Diastolic blood pressure 101 mm[Hg] Perry ESCOBAR [facility] 04-18-2023 10:35-0500 Heart rate 59 /min Perry ESCOBAR [facility] 04-18-2023 10:35-0500 Mean blood pressure 119 mm[Hg] Perry ESCOBAR [facility] 04-18-2023 10:35-0500 Respiratory rate 15 /min Perry ESCOBAR [facility] 04-18-2023 10:35-0500 SaO2% (BldA) [Mass fraction] 97 % Perry COOK [facility] 04-18-2023 10:35-0500 Systolic blood pressure 154 mm[Hg] Perry COOK [facility] 04-18-2023 10:20-0500 Blood Pressure Location Perry COOK [facility] 04-18-2023 10:20-0500 Diastolic blood pressure 87 mm[Hg] Perry COOK [facility] 04-18-2023 10:20-0500 Heart rate 66 /min Perry COOK [facility] 04-18-2023 10:20-0500 Mean blood pressure 107 mm[Hg] Perry COOK [facility] 04-18-2023 10:20-0500 Respiratory rate 20 /min Perry COOK [facility] 04-18-2023 10:20-0500 Systolic blood pressure 146 mm[Hg] Perry ESCOBAR [facility] 04-18-2023 10:15-0500 Blood Pressure Location Perry COOK [facility] 04-18-2023 10:15-0500 Mean blood pressure 120 mm[Hg] Perry COOK [facility] 04-18-2023 10:15-0500 Respiratory rate 11 /min Perry COOK [facility] 04-18-2023 10:07-0500 Body temperature 97.88 [degF] Perry COOK [facility] 04-18-2023 10:00-0500 Respiratory rate 13 /min Perry COOK [facility] 04-18-2023 09:55-0500 Respiratory rate 15 /min Perry COOK [facility] 04-18-2023 07:52-0500 Mean blood pressure 101 mm[Hg] Perry COOK [facility] 04-18-2023 07:51-0500 Body temperature 97.52 [degF] Perry COOK [facility] 04-18-2023 07:51-0500 Mean blood pressure 110 mm[Hg] Perry COOK [facility] 03-29-2023 10:57-0500 Diastolic blood pressure 91 mm[Hg] Perry COOK [facility] 03-29-2023 10:57-0500 Heart rate 79 /min Perry ESCOBAR [facility] 03-29-2023 10:57-0500 Mean blood pressure 107 mm[Hg] Perry ESCOBAR [facility] 03-29-2023 10:57-0500 Systolic blood pressure 139 mm[Hg] Perry ESCOBAR [facility] 03-29-2023 10:56-0500 Heart rate 76 /min Perry ESCOBAR [facility] 03-29-2023 10:56-0500 SaO2% (BldA) [Mass fraction] 97 % Perry ESCOBAR [facility] 03-29-2023 10:56-0500 Diastolic blood pressure 104 mm[Hg] Perry COOK [facility] 03-29-2023 10:56-0500 Mean blood pressure 119 mm[Hg] Perry COOK [facility] 03-29-2023 10:56-0500 Systolic blood pressure 150 mm[Hg] Perry COOK [facility] 03-19-2023 14:47-0500 Body mass index (BMI) [Ratio] 36.46 kg/m2 Hardy Cong DO Work Phone: [facility] 03-19-2023 14:47-0500 Body weight 93.35 kg Hardy Cong DO Work Phone: [facility] 03-19-2023 14:47-0500 Diastolic blood pressure 82 mm[Hg] Hardy Cong DO Work Phone: [facility] 03-19-2023 14:47-0500 Systolic blood pressure 120 mm[Hg] Hardy Cong DO Work Phone: [facility] 03-19-2023 09:25-0500 Blood Pressure Location [facility] 03-19-2023 09:25-0500 Diastolic blood pressure 84 mm[Hg] Perry [employer] [facility] 03-19-2023 09:25-0500 Systolic blood pressure 130 mm[Hg] Perry [employer] [facility] 01-29-2023 08:30-0500 Body weight 91.17 kg Leticia Dill Other [facility] Other 01-29-2023 08:30-0500 Diastolic blood pressure 84 mm[Hg] Leticia Dill Other [facility] Other 01-29-2023 08:30-0500 Systolic blood pressure 139 mm[Hg] Leticia Dill Other [facility] Other 07-18-2022 11:45-0400 Body height 160.02 cm Leticia Dill Other [facility] Other 07-18-2022 11:45-0400 Body mass index (BMI) [Ratio] 32.41 kg/m2 Letiica Dill Other [employer] Other 07-18-2022 11:45-0400 Body weight 83.01 kg Leticia Dill Other [employer] Other 07-18-2022 11:45-0400 Diastolic blood pressure 86 mm[Hg] Leticia Dill Other [employer] Other 07-18-2022 11:45-0400 Systolic blood pressure 145 mm[Hg] Leticia Dill Other [employer] Other 06-25-2022 15:45-0400 Body height 160.02 cm Leticia Dill Other [employer] Other 06-25-2022 15:45-0400 Body mass index (BMI) [Ratio] 31.7 kg/m2 Leticia Dill Other [employer] Other 06-25-2022 15:45-0400 Body weight 81.19 kg Leticia Dill Other [employer] Other 06-25-2022 15:45-0400 Diastolic blood pressure 80 mm[Hg] Leticia Dill Other [employer] Other 06-25-2022 15:45-0400 SaO2% (BldA) [Mass fraction] 99 % Leticia Dill Other [employer] Other 06-25-2022 15:45-0400 Systolic blood pressure 132 mm[Hg] Leticia Dill Other [employer] Other 02-09-2021 17:45-0500 Body height 160.02 cm Columba Fernandes Other [employer] Other 02-09-2021 17:45-0500 Body mass index (BMI) [Ratio] 33.65 kg/m2 Columba Fernandes Other [employer] Other 02-09-2021 17:45-0500 Body temperature 97.3 [degF] Columba Fernandes Other [employer] Other 02-09-2021 17:45-0500 Body weight 86.18 kg Columba Fernandes Other [employer] Other 02-09-2021 17:45-0500 Respiratory rate 18 /min Columba Fernandes Other [employer] Other 02-09-2021 17:45-0500 SaO2% (BldA) [Mass fraction] 99 % Columba Fernandes Other [employer] Other Encounters Encounter Date Encounter Type Care Provider Facility Start: 04-18-2023 End: 04-18-2023 ambulatory Perry ESCOBAR Facility:[facility] Start: 04-18-2023 End: 04-18-2023 Admission to same day surgery center Perry ESCOBAR [facility] Start: 03-29-2023 End: 03-30-2023 ambulatory Perry ESCOBAR Facility:[facility] Start: 03-29-2023 End: 03-29-2023 Patient encounter procedure Perry ESCOBAR [facility] Start: 03-19-2023 End: 03-19-2023 ambulatory HARDY ORTEGAO Not Available Start: 03-19-2023 End: 03-19-2023 Patient encounter procedure Hardy Ortegao DO Work Phone: [facility] Start: 03-19-2023 End: 03-19-2023 Periodic preventive med est patient 18-39 yrs Hardy Gar DO Work Phone: [facility] Comment on above: Well woman exam with routine gynecological exam Start: 03-19-2023 End: 03-20-2023 ambulatory Perry ESCOBAR Facility:[facility] Start: 03-19-2023 End: 03-19-2023 Patient encounter procedure Perry ESCOBAR [facility] Start: 03-11-2023 End: 03-11-2023 ambulatory Leticia Dill Other [employer] Other Start: 03-11-2023 Telephone encounter Leticia Dill [facility] Start: 02-22-2023 End: 02-22-2023 ambulatory Leticia Dill Other [employer] Other Start: 02-22-2023 Telephone encounter Leticia Dill [facility] Start: 02-21-2023 End: 02-21-2023 ambulatory Leticia Dill Other [employer] Other Start: 02-21-2023 Telephone encounter Leticia Dill [facility] Start: 01-29-2023 End: 01-29-2023 ambulatory Leticia Dill Other [employer] Other Start: 01-29-2023 Office outpatient vi sit 25 minutes Leticia Dill [facility] Start: 11-16-2022 End: 11-16-2022 ambulatory Leticia Dill Other [employer] Other Start: 11-16-2022 Telephone encounter Leticia Dill [facility] Start: 08-27-2022 End: 08-27-2022 ambulatory Leticia Dill Other [employer] Other Start: 08-27-2022 Telephone encounter Leticia Dill [facility] Start: 08-23-2022 End: 08-23-2022 ambulatory Leticia Dill Other [employer] Other Start: 08-23-2022 Telephone encounter Leticia Dill [facility] Start: 07-18-2022 End: 07-18-2022 ambulatory Leticia Dill Other [employer] Other Start: 07-18-2022 Office outpatient vi sit 15 minutes Leticia Dill [facility] Start: 06-25-2022 End: 06-25-2022 ambulatory Leticia Dill Other [employer] Other Start: 06-25-2022 Office outpatient vi sit 10 minutes Leticia Dill [facility] Start: 05-18-2022 Telephone encounter Leticia Dill [facility] Start: 05-18-2022 End: 05-19-2022 ambulatory LETICIA Hatch FUENTES [employer] Other Start: 04-10-2022 End: 04-10-2022 ambulatory Leticia Dill Other [employer] Other Start: 04-10-2022 Telephone encounter Leticia Dill [facility] Start: 04-02-2022 End: 04-02-2022 ambulatory Leticia Dill Other [employer] Other Start: 04-02-2022 Telephone encounter Leticia Dill [facility] Start: 03-30-2022 End: 03-30-2022 ambulatory Leticia Dill Other [employer] Other Start: 03-30-2022 Telephone encounter Leticia Dill [facility] Start: 03-14-2022 ambulatory LETICIA Mamie FUENTES Facility : Start: 02-26-2022 End: 02-26-2022 ambulatory Leticia Dill Other [employer] Other Start: 02-26-2022 Telephone encounter Leticia Dill [facility] Start: 02-01-2022 End: 02-01-2022 ambulatory [facility] Start: 08-31-2021 End: 08-31-2021 ambulatory LETICIA Mamie FUENTES Facility: Start: 02-09-2021 End: 02-09-2021 ambulatory Columba Fernandes Other [employer] Other Start: 02-09-2021 Office outpatient vi sit 15 minutes Columba Fernandes [facility] Start: 12-02-2018 Well child visit Leticia Fuentes Other [employer] Other Start: 08-12-2018 End: 08-12-2018 Emergency department patient visit [facility] Procedures Date Procedure Procedure Detail Performing Clinician Start: 04-18-2023 Extracorporeal shock wave lithotripsy of calculus of kidney Perryyaakov ESCOBAR Start: 08-12-2018 POST OP SHOE Start: 03-14-2018 Health examination o f sub-group Leticia Fuentes Other End: 07-23-2018 screening Leticia Dill Other End: 08-20-2018 Diabetes mellitus screening Leticia Fuentes Other Insertion of intraut erine contraceptive device Leticia Dill Other visit Leticia Fuentes Other End: 06-29-2021 Removal of intrauterine device Leticia Fuentes Other Tonsillectomy Perry ESCOBAR Tooth structure (bod y structure) Perry ESCOBAR Plan of Treatment Date Care Activity Detail Author Start: 05-03-2023 End: 05-03-2023 Clinical Support 05/03/2023 10:10 AM EDT Clinical Support [facility] [address] [place] [address] [facility] Cytology Cervical or vaginal smear or scraping study Pap Smear Pathology and Cytology Routine Well woman exam with routine gynecological exam Ordered: 03/19/2023 [facility] Work Phone: Comment on above: Ordered: 03/19/2023 Immunizations Immunization Date Immunization Notes Care Provider Barney lemus 11-02-2014 diphtheria, tetanus toxoids and acellular pertussis vaccine, unspecified formulation Leticia Dill Other [employer] Other 10-09-2007 DTaP, unspecified formulation [employer] [facility] 10-09-2007 poliovirus vaccine, unspecified formulation [employer] [facility] 10-09-2007 varicella virus vaccine [employer] [facility] 09-27-2005 diphtheria, tetanus toxoids and acellular pertussis vaccine [employer] [facility] 09-27-2005 measles, mumps and rubella virus vaccine [employer] [facility] 11-24-2003 DTaP, unspecified formulation [employer] [facility] 11-24-2003 measles, mumps and rubella virus vaccine [employer] [facility] 11-24-2003 poliovirus vaccine, unspecified formulation [employer] [facility] 11-24-2003 varicella virus vaccine [employer] [facility] 2002 DTaP, unspecified formulation [employer] [facility] 2002 poliovirus vaccine, unspecified formulation Perry ESCOBAR [facility] 2002 DTaP, unspecified formulation Perry ESCOBAR [facility] 2002 poliovirus vaccine, unspecified formulation Perry ESCOBAR [facility] Payers Date Payer Category Payer Medicaid [employer] [facility] [id number] 2022-Present [address] [address] [place] [address] [id number] 2022 Unknown [employer] [id number] 2022-Present [address] [place] [address] [id number] 2018 Private Health Insurance [id number] 2002 Unknown [id number] 2002 Unknown [id number] 2002 Unknown [id number] 727 2002 Unknown [id number] 1980 Unknown [id number] 173 1980 Unknown [id number] 1980 Unknown [id number] 593 1980 Unknown [id number] 727 1959 Unknown [id number] 1959 Unknown [id number] Social History Date Type Detail Facility Start: 08-27-2022 Sex Assigned At F [facility] Start: 08-27-2022 End: 03-19-2023 Tobacco smoking status Never smoked tobacco (finding) [facility] Tobacco smoking status Never [facility] Start: 08-27-2022 Tobacco use and exposure Smokeless tobacco non-user [facility] Start: 03-19-2023 Alcohol intake Lifetime non-d charla (finding) [facility] Start: 08-27-2022 History of Social function [facility] Start: 2002 Sex Assigned At Not on file [facility] Tobacco Current vaping o r e-cigarette use Smokeless Tobacco Use:. Vaping [facility] Tobacco smoking status No Smokin g Status Entered [facility] Medical Equipment Procedure Code Equipment Code Equipment Origin al Text Equipment Identifier Dates CYSTOSCOPY STENT INSERTION Perry ESCOBAR MD 04/18/23 Unknown Ureter L [employer] Start: 04-18-2023 Functional Status Date Assessment Result Facility 03-29-2023 Functional Status No [facility] 03-19-2023 Functional Status N/A [facility] Clinical Notes 02-09-2021 to 04-18-2023 Note Date & Type Note Facility 04-18-2023 Evaluation + Plan note Extrac t[place] from: Title:ANES Post-operative Note - General Author: Aamir Patel Jr., DO Date:04/18/23 Plan Transfer/Discharge: Transfer/Discharge Discharge when meets criteria ( From PACU to Ambulatory Surgery Unit, and To home ). Extracted from: Title:ANES Pre-operative Note - Adult Author:Aamir Joya Jr., DO Date:04/18/23 Plan [place] [employer] Anesthesiologists (ASA) physical status classification: Class II. Anesthetic Preoperative Plan: Anesthesia General. [facility]02-29-2024 Hospital Discharge instructions Patient Education 04/18/2023 10:51:20 Post Op Patient Instructions - FT (Custom) (CUSTOM) 04/18/2023 08:42:38 Lithotripsy, Care After Lithotripsy, Care After This sheet gives you information about how to care for yourself after your procedure. Your health care provider may also give you more specific instructions. If you have problems or questions, contact your health care provider. What can I expect after the procedure? After the procedure, it is common to have: Some blood in your urine. This should only last for a few days. Soreness in your back, sides, or upper abdomen for a few days. Blotches or bruises on the area where the shock wave entered the skin. Pain, discomfort, or nausea when pieces (fragments) of the kidney stone move through the tube that carries urine from the kidney to the bladder (ureter). Stone fragments may pass soon after the procedure, but they may continue to pass for up to 4 8 weeks. ?If you have severe pain or nausea, contact your health care provider. This may be caused by a large stone that was not broken up, and this may mean that you need more treatment. Some pain or discomfort during urination. Some pain or discomfort in the lower abdomen or (in men) at the base of the penis. Follow these instructions at home: Medicines Take [id number] and prescription medicines only as told by your health care provider. If you were prescribed an antibiotic medicine, take it as told by your health care provider. Do notstop taking the antibiotic even if you start to feel better. Ask your health care provider if the medicine prescribed to you requires you to avoid driving or using machinery. Eating and drinking Drink enough fluid to keep your urine pale yellow. This helps any remaining pieces of the stone to pass. It can also help prevent new stones from forming. Eat plenty of fresh fruits and vegetables. Follow instructions from your health care provider about eating or drinking restrictions. You may be instructed to: ?Reduce how much salt (sodium) you eat or drink. Check ingredients and nutrition facts on packaged foods and beverages to see how much sodium they contain. ?Reduce how much meat you eat. Eat the recommended amount of calcium for your age and gender. Ask your health care provider how much calcium you should have. General instructions Get plenty of rest. Return to your normal activities as told by your health care provider. Ask your health care provider what activities are safe for you. Most people can resume normal activities 1 2 days after the procedure. If you were given a sedative during the procedure, it can affect you for several hours. Do not drive or operate machinery until your health care provider says that it is safe. Your health care provider may direct you to lie in a certain position (postural drainage) and tap firmly (percuss) over your kidney area to help stone fragments pass. Follow instructions as told by your health care provider. If directed, strain all urine through the strainer that was provided by your health care provider. ?Keep all fragments for your health care provider to see. Any stones that are found may be sent to a medical lab for examination. The stone may be as small as a grain of salt. Keep all follow-up visits as told by your health care provider. This is important. Contact a health care provider if: You have a fever or chills. You have nausea that is severe or does not go away. You have any of these urinary symptoms: ?Blood in your urine for longer than your health care provider told you to expect. ?Urine that smells bad or unusual. ?Feeling a strong urge to urinate after emptying your bladder. ?Pain or burning with urination that does not go away. ?Urinating more often than usual and this does not go away. You have a stent and it comes out. Get help right away if: You have severe pain in your back, sides, or upper abdomen. You have any of these urinary symptoms: ?Severe pain while urinating. ?More blood in your urine or having blood in your urine when you did not before. ?Passing blood clots in your urine. ?Passing only a small amount of urine or being unable to pass any urine at all. You have severe nausea that leads to persistent vomiting. You faint. Summary After this procedure, it is common to have some pain, discomfort, or nausea when pieces (fragments)of the kidney stone move through the tube that carries urine from the kidney to the bladder (ureter). If this pain or nausea is severe, however, you should contact your health care provider. Return to your normal activities as told by your health care provider. Ask your health care provider what activities are safe for you. Drink enough fluid to keep your urine pale yellow. This helps any remaining pieces of the stone to pass, and it can help prevent new stones from forming. If directed, strain your urine and keep all fragments for your health care provider to see. Fragments or stones may be as small as a grain of salt. Get help right away if you have severe pain in your back, sides, or upper abdomen, or if you have severe pain while urinating. This information is not intended to replace advice given to you by your health care provider. Make sure you discuss any questions you have with your health care provider. Document Revised: 01/01/2022 Document Reviewed: 10/09/2021 [employer] Patient Education 2022 [facility]. Follow Up Care 03/19/2023 10:26:52 With:Perry ESCOBAR Address: [facility] [place] [id number] Business (1) When: Unknown Comments:Please call my office to make arrangements for an abdominal x-ray next week. Based upon the resultsof that study, we will decide upon the next step. You do have multiple stones in this kidney so we may have to repeat stone busting versus going up into the kidney to utilize a laser to clean the rest of the fragments and other stones out.I did send some prescriptions to your pharmacy. Discharge instructions should accompany your paperwork. The stent will be irritating and may cause blood in the urine, burning with frequency and urgency of urination. Push the fluids to keep the urine clear. [facility]01-30-2024 History of Present illness Narrative* Hardy Gar DO - 03/19/2023 2:10 PM EST Reason for Appointment: Patient ID: Sunshine Ryder is a 23 y.o. female who presents for Gynecologic Exam Patient presents today for Annual Exam appointment. Current Medications: has a current medication list which includes the following prescription(s): famotidine, metoprolol succinate xl, amphetamine-dextroamphetamine xr, ibuprofen, and medroxyprogesterone. Medical History: Active Ambulatory Problems Diagnosis Date Noted Adult attention deficit disorder 07/27/2022 Atypical chest pain 02/01/2022 Dizziness 02/01/2022 CELAYA (dyspnea on exertion) 02/01/2022 Abdominal pain 07/27/2022 Gastroesophageal reflux disease 07/27/2022 Impacted cerumen 07/27/2022 Menorrhagia 07/27/2022 Kidney stone 07/27/2022 Mixed anxiety and depressive disorder 07/27/2022 Other specified related conditions, unspecified trimester 07/27/2022 Palpitations 02/01/2022 Pelvic and perineal pain 07/27/2022 Syncope and collapse 07/27/2022 Vaginal discharge 07/27/2022 Encounter for biopsy 07/27/2022 Resolved Ambulatory Problems Diagnosis Date Noted No Resolved Ambulatory Problems Past Medical History: Diagnosis Date Abdominal discomfort in left flank Anxiety and depression (CMS/HCC) BMI 32.0-32.9,adult Ceruminosis, bilateral Depot contraception Encounter for Depo-Provera contraception Flank pain GERD (gastroesophageal reflux disease) Insect bite (nonvenomous) of abdominal wall, initial encounter Negative test Pelvic cramping Rh negative state in antepartum period Surveillance for control, intrauterine device Family History Problem Relation Name Age of Onset Hypertension Mother Hypertension Maternal Grandmother Diabetes Maternal Grandmother Social History Tobacco Use Smoking status: Never Smokeless tobacco: Never Substance Use Topics Alcohol use: Never Drug use: Never Past Surgical History: Procedure Laterality Date NE TONSILLECTOMY & ADENOIDECTOMY <AGE 14 Allergies Allergen Reactions Codeine Hives and Other Review of Systems: Review of Systems Constitutional: Negative. HENT: Negative. Eyes: Negative. Respiratory: Negative. Cardiovascular: Negative. Gastrointestinal: Negative. Genitourinary: Negative. Musculoskeletal: Negative. Skin: Negative. Neurological: Negative. All other systems reviewed and are negative. Hematological: Negative. Endocrine: Negative. Allergic/Immunologic: Negative. Objective Physical Exam Constitutional: Appearance: Normal appearance. She is well-developed. Genitourinary: Vulva normal. Cardiovascular: Rate and Rhythm: Normal rate and regular rhythm. Pulmonary: Effort: Pulmonary effort is normal. Breath sounds: Normal breath sounds. Abdominal: General: Bowel sounds are normal. There is no distension. Palpations: Abdomen is soft. Tenderness: There is no abdominal tenderness. There is no guarding or rebound. Musculoskeletal: General: No swelling. Normal range of motion. Right lower leg: No edema. Left lower leg: No edema. Neurological: Mental Status: She is alert and oriented to person, place, and time. Skin: General: Skin is warm and dry. Psychiatric: Mood and Affect: Mood normal. Behavior: Behavior normal. Vitals and nursing note reviewed. Exam conducted with a footwear stitcher present. Vitals: Estimated body mass index is 36.46 kg/m as calculated from the following: Height as of 08/29/22: 5' 3 . Weight as of this encounter: 205 lb 12.8 oz. BP: 120/82 No LMP recorded. Assessment/Plan Encounter Diagnosis Name Primary? Well woman exam with routine gynecological exam Patient presents today for an annual exam. Patient states she is doing well and has no complaints. Pap was obtained without difficulty. Follow Up: Patient is to return in one year for annual unless needed otherwise. Documented by Hardy Gar DO on behalf of: Hardy Gar DO [facility] [id number] Hospital Discharge instructions Patient Education 03/19/2023 10:15:59 Dietary Guidelines to Help Prevent Kidney Stones Dietary Guidelines to Help Prevent Kidney Stones Kidney stones are deposits of minerals and salts that form inside your kidneys. Your risk of developing kidney stones may be greater depending on your diet, your lifestyle, the medicines you take, and whether you have certain medical conditions. Most people can lower their risks of developing kidney stones by following these dietary guidelines. Your dietitian may give you more specific instructions depending on your overall health and the type of kidney stones you tend to develop. What are tips for following this plan? Reading food labels Choose foods with no salt added or low-salt labels. Limit your salt (sodium) intake to less than 1,500 mg a day. Choose foods with calcium for each meal and snack. Try to eat about 300 mg of calcium at each meal.Foods that contain 200 500 mg of calcium a serving include: ?8 oz (237 mL) of milk, cxlvtmm-rcoueriovaet-kixyq milk, and calcium- fortifiedfruit juice. Calcium-fortified means that calcium has been added to these drinks. ?8 oz (237 mL) of kefir, yogurt, and soy yogurt. ?4 oz (114 g) of tofu. ?1 oz (28 g) of cheese. ?1 cup (150 g) of dried figs. ?1 cup (91 g) of cooked broccoli. ?One 3 oz (85 g) can of sardines or mackerel. Most people need 1,000 1,500 mg of calcium a day. Talk to your dietitian about how much calcium is recommended for you. Shopping Buy plenty of fresh fruits and vegetables. Most people do not need to avoid fruits and vegetables, even if these foods contain nutrients that may contribute to kidney stones. When shopping for convenience foods, choose: ?Whole pieces of fruit. ?Pre-made salads with dressing on the side. ?Low-fat fruit and yogurt smoothies. Avoid buying frozen meals or prepared deli foods. These can be high in sodium. Look for foods with live cultures, such as yogurt and kefir. Choose high-fiber grains, such as whole-wheat breads, oat bran, and wheat cereals. Cooking Do not add salt to food when cooking. Place a salt shaker on the table and allow each person to addtheir own salt to taste. Use vegetable protein, such as beans, textured vegetable protein (TVP), or tofu, instead of meat inpasta, casseroles, and soups. Meal planning Eat less salt, if told by your dietitian. To do this: ?Avoid eating processed or pre-made food. ?Avoid eating fast food. Eat less animal protein, including cheese, meat, poultry, or fish, if told by your dietitian. To dothis: ?Limit the number of times you have meat, poultry, fish, or cheese each week. Eat a diet free of meat at least 2 days a week. ?Eat only one serving each day of meat, poultry, fish, or seafood. ?When you prepare animal proteins, cut pieces into small portion sizes. For most meat and fish, oneserving is about the size of the palm of your hand. Eat at least five servings of fresh fruits and vegetables each day. To do this: ?Keep fruits and vegetables on hand for snacks. ?Eat one piece of fruit or a handful of berries with breakfast. ?Have a salad and fruit at lunch. ?Have two kinds of vegetables at dinner. You may be told to limit foods that are high in a substance called oxalate. These include: ?Spinach (cooked), rhubarb, beets, sweet potatoes, and English chard. ?Peanuts. ?Potato chips, citizen of [place] fries, and baked potatoes with skin on. ?Nuts and nut products. ?Chocolate. If you regularly take a diuretic medicine, make sure to eat at least 1 or 2 servings of fruits or vegetables that are high in potassium each day. These include: ?Avocado. ?Banana. ?Schleicher, prune, carrot, or tomato juice. ?Baked potato. ?Cabbage. ?Beans and split peas. Lifestyle Drink enough fluid to keep your urine pale yellow. This is the most important thing you can do. Spread your fluid intake throughout the day. If you drink alcohol: ?Limit how much you have to: ?0 1 drink a day for women who are not . ?0 2 drinks a day for men. ?Know how much alcohol is in your drink. In the [place] one drink equals one 12 oz bottle of beer (355 mL), one 5 oz glass of wine (148 mL), or one 1 oz glass of hard liquor (44 mL). Lose weight if told by your health care provider. Work with your dietitian to find an eating plan and weight loss strategies that work best for you. General information Talk to your health care provider and dietitian about taking daily supplements. Depending on your health and the cause of your kidney stones, you may be told: ?Do not take high-dose supplements of vitamin C (1,000 mg a day or more). ?To take a calcium supplement. ?To take a daily probiotic supplement. ?To take other supplements such as magnesium, fish oil, or vitamin B6. Take hkhy-ilj-lvhbqce and prescription medicines only as told by your health care provider. These include supplements. What foods should I limit? Limit your intake of the following foods, or eat them as told by your dietitian. Vegetables Spinach. Rhubarb. Beets. Canned vegetables. Pickles. Olives. Baked potatoes with skin. Grains Wheat bran. Baked goods. Salted crackers. Cereals high in sugar. Meats and other proteins Nuts. Nut butters. Large portions of meat, poultry, or fish. Salted, precooked, or cured meats, such as sausages, meat loaves, and hot dogs. Dairy Cheeses. Beverages Regular soft drinks. Regular vegetable juice. Seasonings and condiments Seasoning blends with salt. Salad dressings. Soy sauce. Ketchup. Barbecue sauce. Other foods Canned soups. Canned pasta sauce. Casseroles. Pizza. Lasagna. Frozen meals. Potato chips. Martiniquais fries. The items listed above may not be a complete list of foods and beverages you should limit. Contact a dietitian for more information. What foods should I avoid? Talk to your dietitian about specific foods you should avoid based on the type of kidney stones youhave and your overall health. Fruits Grapefruit. The item listed above may not be a complete list of foods and beverages you should avoid. Contact adietitian for more information. Summary Kidney stones are deposits of minerals and salts that form inside your kidneys. You can lower your risk of kidney stones by making changes to your diet. The most important thing you can do is drink enough fluid. Drink enough fluid to keep your urine pale yellow. Talk to your dietitian about how much calcium you should have each day, and eat less salt and animal protein as told by your dietitian. This information is not intended to replace advice given to you by your health care provider. Make sure you discuss any questions you have with your health care provider. Document Revised: 05/17/2022 Document Reviewed: 05/17/2022 [employer] Patient Education 2022 [facility] [employer]IN. Follow Up Care 01/29/2023 14:42:34 With:SHAWN COOK, Perry Catalan, URL Address: [address] [place], [place] [address]- When: Unknown Comments:Schedule stone procedure [facility] [phone] Evaluation note* Encounter Date Diagnosis Assessment Notes Treatment Notes Treatment Clinical Notes Feb, Adult attention deficit disorder (ICD-10 - F98.8) [employer] Other 01-05-2024 Evaluation note* Encounter Date Diagnosis Assessment Notes Treatment Notes Treatment Clinical Notes Feb, Chronic GERD (ICD-10 - K21.9) [employer] Other 01-04-2024 Evaluation note* Encounter Date Diagnosis Assessment Notes Treatment Notes Treatment Clinical Notes Feb, Essential (primary) hypertension (ICD-10 - I10) [employer] Other 12-12-2023 Evaluation note* Encounter Date Diagnosis [...] in the reasonable future. Notes continued hematuria. [employer] Other 09-29-2023 Evaluation note* Encounter Date Diagnosis Assessment Notes Treatment Notes Treatment Clinical Notes Oct, Adult attention deficit disorder (ICD-10 - F98.8) [employer] Other 05-31-2023 Evaluation note* Encounter Date Diagnosis [...] we will refer her to a opthomologist [facility] [employer] Other 05-08-2023 Evaluation note* Encounter Date Diagnosis Assessment Notes Treatment Notes Treatment Clinical Notes June, Homeless family (ICD-10 - Z59.00) Note provided. States she needs this to get help with housing through [facility]. [employer] Other 12-17-2022 Note-she said this resolved with medication but it was stopped per her neurologist -follow up as scheduled with neurologist group -continue to monitor heart rate and blood pressure during events and daily [facility]12-17-2022 Note-she states they happen frequently so I will order a holter monitor for now -[facility]- due to her age I suspect this is likely related to lack of endurance or exercise tolerane -we discussed lifestyle changes and adding an exercise regimen to her routie [facility]12-15-2022 NoteUT Cardiology Note [facility] Reason for visit: new patient for dizziness HPI: Sunshine Ryder is a 21 y.o. year old with [...] Not on file Allergies: Allergies Allergen Reactions Codeine Hives Weight: 84.4kg Meds: Current Outpatient Medications on [...] blood pressure during events and daily Antoine Barazi, HAND DRY CLEANER Cardiac Electrophysiology [facility]12-15-2022 NoteNew patient here to establish care. [...] light-headedness. All other systems reviewed and are negative.[facility] 02-09-2021 Evaluation note* Encounter Date Diagnosis [...] Patient care instructions given in writting by CDC Care At Home document. [employer] Other Evaluation + Plan note Future Appointments Appointment Date:03/29/2023 10:30:00 AM Scheduled Provider: Location:[facility] Appointment Type:Surgical PAT FT Appointment Date:04/18/2023 09:30:00 AM Scheduled Provider: Location:[facility] Appointment Type:Surgery FT [facility] Joseline Evaluation + Plan note Future Appointments Appointment Date:04/18/2023 09:30:00 AM Scheduled [facility]: [facility] Other Evaluation note* Diagnosis Well woman exam with routine gynecological exam Routine gynecological examination documented in this encounter [facility] Narrative - Reported* Type Description Date Surgical History ADENOIDECTOMY Surgical History TONSILLECTOMY Hospitalization History SEE SURGICAL [employer] Other History general Narrative - Reported* Type Description Date Medical History Adult attention deficit disorder Medical History Lumbar pain Medical History Left flank discomfort Medical History Syncope and collapse Medical History Menorrhagia Medical History Kidney stone Medical History Anxiety and depression Medical History GERD (gastroesophageal reflux di sease) Surgical History ADENOIDECTOMY Surgical History TONSILLECTOMY Hospitalization History SEE SURGICAL [employer] Other Hospital course Narrative No data available for this section [facility] Discharge instructions No data available for this section [facility] No data available for this section [facility] Summary Purpose Family History No Family History Records FoundNo Family History Records FoundNo Family History Records Found No data available for this section No Family History Records Found No data available for this section No data available for this section No Family History Records Found Advance Directives No Advanced Directives Records FoundNo Advanced Directives Records FoundNo Advanced Directives Records FoundNo Advanced Directives Records FoundNo Advanced Directives Records Found Additional Source Comments INFORMATION SOURCE (unrecogn ized section and content) DATE CREATED AUTHOR 08/12/2018 [facility] DATE CREATED AUTHOR AUTHOR'S ORGANIZ ATION 02/08/2022 [facility] DATE CREATED AUTHOR AUTHOR'S ORGANIZ ATION 05/26/2022 [facility] DATE CREATED AUTHOR AUTHOR'S ORGANIZ ATION 03/20/2023 [facility] EPIC DATE CREATED AUTHOR AUTHOR'S ORGANIZ ATION 04/20/2023 Allan Girish [facility] REASON FOR VISIT (unrecogniz ed section and content) Reason Comments Gynecologic Exam Patient Care team informatio n (unrecognized section and content) Restaurant Bartender Relationship Specialty Start Date End Date Leticia Dill MD [address] [place] [id number] PCP - General Family Medicine 07/19/22 FOR RECORDS PERTAINING TO PATIENTS WHO ARE [...] BE BASED ON THE PRIMARY CLINICAL RECORDS. [employer] provides no warranty or guarantee of the accuracy or completeness of information in this document.
--- NOTE | 2023-04-26 15:48 | XR_ITS ---
The [address] [address] Patient Name: ABHI RYDER MRN: [id number] date: 2000 Sex: F Assigned Patient Location: [facility] Current Patient Location: Accession/Order Number: [id number] Exam Date: 04/26/2023 15:45 Report Date: 04/27/2023 08:27 At the request of: VIRAL ESCOBAR Procedure: XR abdomen 1V EXAMINATION: XR abdomen 1V HISTORY: Kidney Stone, N20.0 COMPARISON: XR abdomen 03/19/2023 FINDINGS: KIDNEY/URETER - RIGHT: No visible renal or ureteral calcifications. KIDNEY/URETER - LEFT: Multiple small stone fragments within inferior pole kidney. Stent within left ureter; no appreciable stones within the ureter. PELVIS: No suspicious pelvic calcifications. BOWEL: No abnormal dilation or deviation. BONES: No acute abnormality. OTHER: Negative. No abnormal gaseous collections. XR/XR abdomen 1V IMPRESSION: 1. Fragment stones within inferior pole of left kidney following lithotripsy. 2. Left ureteral stent appearing in good position; no appreciable ureteral stones. Electronically authenticated by: RITA PARKER Date: 04/27/2023 08:27
== END 2023-04-26 15:35 | disposition home or self-care (01) ==
LOC: RAD 15:34
PROVIDERS: PCP Family Medicine; Visit Provider Urology
DX: N20.0 Calculus of kidney (principal)
CPT/HCPCS: 74018

== ENCOUNTER 2024-03-03 19:13 | Emergency (ER) | payer OTHER, SELFPAY ==
--- OUTSIDE RECORDS SUMMARY | 2024-03-03 19:20 | XMS_ITS | CCD ---
Author Organization [facility]iniSyne Care Team Providers Care Stone Carver Name Role Phone Columba Fernandes Unavailable Gaye Dill Unavailable GAYE DILL Primary Care Unavailable PREET, DR SIMRAN Alexander Consulting Unavailabl e PREET, DR SIMRAN Alexander Attending Unavailabl e PREET, DR SIMRAN Alexander Admitting Unavailabl e GAYE DILL Primary Care Unavailable JOSE ., DR GAIL Mcwilliams Attending Unavailable JOSE ., DR GAIL Mcwilliams Admitting Unavailable FITZGERALD .RL Consulting Unavailable GAYE DILL Admitting Unavailable GAYE DILL Primary Care Unavailable GAYE DILL Consulting Unavailable GAYE DILL Attending Unavailable GAYE DILL Primary Care Physician Lexis Moura Unavailable Unavailable Gaye Dill MD Primary Care Provider RAMY GAR Attending Unavailable RAMY GAR Attending Unavailable VELMA CHAND Attending Unavailable ROBERT BURGESS Attending Unavailable GAYE DILL Primary Care Unavailable ROBERT BURGESS Attending Unavailable ROBERT BURGESS Referring Unavailable DILLGAYE Primary Care Unavailable GAYE DILL Primary Care Unavailable ROBERT BURGESS Attending Unavailable DILL, GAYE E Primary Care Unavailable VENKAT MCCRAY Attending Unavailable COOKJARVISVIRAL P Referring Unavailable DILL, GAYE E Primary Care Unavailable COOKViral P Attending Unavailable COOK, Viral P Attending Unavailable COOK, Viral P Attending Unavailable COOK, Viral P Attending Unavailable COOK, Viral P Admitting Unavailable COOK, Viral P Attending Unavailable COOK, Viral P Referring Unavailable COOK, Viral P Admitting Unavailable COOK, Viral P Attending Unavailable COOK, Viral P Referring Unavailable Lawson Carbone H Attending Unavailable COOK, Viral P Admitting Unavailable COOK, Viral P Attending Unavailable COOK, Viral P Referring Unavailable COOK, Viral P Attending Unavailable Allergies Allergy Classification Reported Allergen(s) Allergy Type Date of Onset Reaction(s) Facility (20 sources) Codeine; Translations: [codeine] Drug Allergy 9 Unknown (qualifier value), Hives, Other, Eruption of skin (disorder), Hyperactive behavior (finding) [facility] (1 source) Codeine Drug Allergy 5 [facility] (1 source) patient allergy list reviewed by nurse or physicia Propensity to adverse reactions 8 Comment:Done [employer] Other (1 source) Allergies Reconciled Propensity to adverse reactions Unknown [employer] Other Medications Current Medications Medication Drug Class(es) Dates Sig (Normalized) Sig (Original) acetaminophen 325 mg oral tablet (6 sources) Start: 04-18-2023 take 2 tablets by mouth every four hours Tylenol 325 mg Tab = 2 tab(s), Oral, q4hr, Pain - Moderate Start Date: 04/18/23 Status: Ordered acetaminophen 325 mg / HYDROcodone bitartrate 5 mg oral tablet (2 sources) Opioid Agonist Start: 06-13-2023 End: 06-15-2023 acetaminophen-hyd rocodone 325 mg-5 mg oral tablet 1 tab(s), Oral, q4hr Pain for 2 day(s), 5 tab(s), Refill(s) 0, [facility]/pharmacy #[id number], 163.5, cm, 06/13/23 10:01:00 EDT, Height/Length Dosing, 87.1, kg, 06/13/23 10:01:00 EDT, Weight Dosing Start Date: 06/13/23 Stop Date: 06/15/23 Status: Ordered Start: 04-18-2023 End: 04-20-2023 acetaminophen-hydrocodone 32 5 mg-5 mg oral tablet 1 tab(s), Oral, q4hr Pain for 2 day(s), 7 tab(s), Refill(s) 0, N20.0, [facility]/pharmacy #[id number], 165, cm, 04/01/23 6:28:00 EST, Height/Length Dosing, 94.7, kg, 04/01/23 6:28:00 EST, Weight Dosing Start Date: 04/18/23 Stop Date: 04/20/23 Status: Ordered Amphetamine / Dextroamphetamine (5 sources) Central Nervous System Stimulant Adderall XR Active carvedilol 6.25 mg oral tablet (3 sources) alpha-Adrenergic Steven, beta-Adrenergic Steven Star t: 05-19 carvedilol 6.25 mg Tab Refills(s) 0 Start Date: 06/05/23 Status: Ordered cefdinir 300 mg oral capsule (1 source) Cephalosporin Antibacterial Star t: 11-19 take 300 mg by mouth twice daily Cefdinir Active 300 MG PO Twice daily December 13, 2023 12:00am cephalexin 500 mg oral capsule (1 source) Cephalosporin Antibacterial Star t: 03-22 End: 07-07 take 1 capsule by mouth every twelve hours cephalexin 500 mg Cap 500 mg = 1 cap(s), Oral, q12hr, X 5 day(s), # 10 cap(s), Refills(s) 0, Pharmacy: [facility]/pharmacy #[id number], 165, cm, 04/01/23 6:28:00 EST, Height/Length Dosing, 94.7, kg, 04/01/23 6:28:00 EST, Weight Dosing Start Date: 04/18/23 Stop Date: 04/23/23 Status: Ordered ciprofloxacin 500 mg oral tablet (2 sources) Quinolone Antimicrobial Star t: 05-20 take 1 tablet by mouth twice daily Cipro 500 mg Tab 500 mg = 1 tab(s), Oral, BID, # 10 tab(s), Refills(s) 0, Pharmacy: [facility]/pharmacy #[id number], 163.5, cm, 06/13/23 10:01:00 EDT, Height/Length Dosing, 87.1, kg, 06/13/23 10:01:00 EDT, Weight Dosing Start Date: 06/13/23 Status: Ordered 1 ml medroxyPROGESTERone acetate 150 mg/ml prefilled syringe (2 sources) Progestin Star t: 02-18 medroxyPROGESTERone (Depo-Provera) 150 MG/ML suspension prefilled syringe injection syringe Indications: Encounter for surveillance of injectable contraceptive 1 mL Intramuscular 0.9 mL 1 03/07/2023 Active medroxyPROGESTERone 150 mg/mL IM Susp (7 sources) Star t: 11-07 inject 150 mg by intramuscular injection every three months medroxyPROGESTERone 150 mg/mL IM Susp 150 mg = 1 mL, IntraMuscular, q3mo, Refills(s) 0, control/menstrual regulation Start Date: 03/29/23 Status: Ordered oxybutynin chloride 5 mg oral tablet (5 sources) Cholinergic Muscarinic Antagonist Star t: 03-22 End: 05-20 take 1 tablet by mouth twice daily oxybutynin 5 mg Tab 5 mg = 1 tab(s), Oral, BID, X 30 day(s), # 60 tab(s), Refills(s) 1, Pharmacy: [facility]/pharmacy #[id number], 165, cm, 04/01/23 6:28:00 EST, Height/Length Dosing, 94.7, kg, 04/01/23 6:28:00 EST, Weight Dosing Start Date: 04/18/23 Stop Date: 06/17/23 Status: Ordered sulfamethoxazole 800 mg / trimethoprim 160 mg oral tablet (1 source) Dihydrofolate Reductase Inhibitor Antibacterial, Sulfonamide Antimicrobial Star t: 04-19 End: 09-06 Bactrim D.S. 800 mg-160 mg Tab 1 tab(s), Oral, BID for 10 day(s), 20 tab(s), Refill(s) 0, [facility]/pharmacy #[id number], 165, cm, 04/01/23 6:28:00 EST, Height/Length Dosing, 94.7, kg, 04/01/23 6:28:00 EST, Weight Dosing Start Date: 05/16/23 Stop Date: 05/26/23 Status: Ordered SUMAtriptan 100 mg oral tablet (10 sources) Serotonin-1b and Serotonin-1d Receptor Agonist Star t: 05-20 take 1 tablet by mouth once daily as needed for headache SUMAtriptan 100 mg Tab 100 mg = 1 tab(s), Oral, Daily, PRN Headache, Refills(s) 0 Start Date: 06/13/23 Status: Ordered Start: 04-23-2023 Sumatriptan Archer ccinate Active 50 MG PO EVERY 2-4 HOURS April 23, 2023 1:00am do not exceed 4 doses per 24 hrs Start: 06-15-2022 take 1 tablet by umesh th every two hours as needed, then take 1 tablet by mouth twice daily as needed SUMAtriptan Succinate 50 MG 1 tablet at least 2 hours between doses as needed Orally Twice a day prn for 30 days May, Active SUMAtriptan Succ inate 50 MG TAKE 1 TABLET BY MOUTH ONCE DAILY. MAY REPEAT AT LEAST 2 HOURS BETWEEN DOSES NEEDED for 30 Active tamsulosin hydrochloride 0.4 mg oral capsule (5 sources) alpha-Adrenergic Steven Start: 05-16-2023 take 1 capsule by mouth once daily Flomax 0.4 mg Cap 0.4 mg = 1 cap(s), Oral, Daily, # 30 cap(s), Refills(s) 0, Pharmacy: [facility]/pharmacy #[id number], 165, cm, 04/01/23 6:28:00 EST, Height/Length Dosing, 94.7, kg, 04/01/23 6:28:00 EST, Weight Dosing Start Date: 05/16/23 Status: Ordered tiZANidine 4 mg oral tablet (6 sources) Central alpha-2 Adrenergic Agonist Start: 05-18-2022 take 1 tablet by mouth once daily at bedtime as needed tiZANidine HCl 4 MG 1 tablet as needed Orally qhs for 30 days Apr, Active topiramate 25 mg oral tablet (2 sources) Start: 06-13-2023 take 1 tablet by mouth twice daily topiramate 25 mg Tab 25 mg = 1 tab(s), Oral, BID, Refills(s) 0 Start Date: 06/13/23 Status: Ordered Completed/Discontinued Medications Medication Drug Class(es) Dates Sig (Normalized) Sig (Original) amphetamine aspartate 5 mg / amphetamine sulfate 5 mg / dextroamphetamine saccharate 5 mg / dextroamphetamine sulfate 5 mg oral tablet (20 sources) Central Nervous System Stimulant Start: 07-17-2023 End: 12-13-2023 take 1 tablet by mouth every four to six hours Dextroamphetamine- Amphetamine (Adderall) 20 mg tablet Discontinued 20 MG PO Twice daily October 31, 2023 December 13, 2023 8:27am administer doses at least 4-6 hours apart Start: 04-18-2023 End: 07-17-2023 take 15 mg by mouth twice daily Dextroamphetamine-Amphetamine Discontinu ed 15 MG PO Twice daily April 18, 2023 1:00am July 17, 2023 12:13pm Start: 03-19-2023 take 25 mg by mouth twice daily Adderall 25 mg, Oral, BID, Refill(s) 0 S tart Date: 03/19/23 Status: Ordered Start: 03-19-2023 amphetamine-de [...] Start: 11-16-2022 take 1 tablet by umesh every twelve [...] Start: 04-10-2022 take 1 capsule by mo [facility] every twenty-four hours Adderall XR 25 MG 1 capsule Orally Once a day for 30 days Mar, Active Azithromycin (1 source) Macrolide Antimicrobial Start: 11-14-2023 End: 12-13-2023 Azithromycin Discontinued 0 PO .COMPLEX 6 November 14, 2023 12:00am December 13, 2023 8:28am For 250 mg dose pack: take 500 mg today (day 1), then 250 mg for 4 days (days 2-5) PO famotidine 20 mg oral tablet (19 sources) Histamine-2 Receptor Antagonist Start: 03-29-2023 End: 12-13-2023 take 20 mg by mouth once daily at bedtime Famotidine Discontinued 20 MG PO Daily at bedtime April 26, 2023 5:51pm December 13, 2023 8:28am Start: 01-29-2023 take 1 tablet by umesh th at bedtime famotidine (Pepcid) 20 MG tablet Take 20 mg by mouth at bedtime 0 02/24/2023 Active ibuprofen 800 mg oral tablet (15 sources) Nonsteroidal Anti-inflammatory Drug Start: 04-18-2023 End: 12-13-2023 take 800 mg by mouth every eight hours Ibuprofen Discontinued 800 MG PO Every 8 hours April 18, 2023 1:00am December 13, 2023 8:28am Start: 01-24-2022 ibuprofen 800 MG tablet every 6 (six) hours if needed. 0 01/24/2022 Active take 1 tablet by umesh every eight hours at mealtime Ibuprofen 800 MG TAKE 1 TABLET BY MOUTH EVERY 8 HOURS WITH FOOD OR MILK NEEDED 30 for 30 Active 24 hr metoprolol succinate 25 mg extended release oral tablet (16 sources) beta-Adrenergic Steven Start: 03-29-2023 End: 07-17-2023 take 25 mg by mouth once daily Metoprolol Succinate Discontinued 25 MG PO Daily April 26, 2023 5:51pm July 17, 2023 12:09pm Start: 01-29-2023 take 1 tablet by umesh once daily metoprolol succinate XL (Toprol-XL) 25 MG 24 hr tablet TAKE 1 TABLET BY MOUTH EVERY DAY FOR 30 DAYS 0 02/24/2023 Active omeprazole 20 mg delayed release oral capsule (7 sources) Proton Pump Inhibitor Start: 04-18-2023 End: 04-23-2023 take 20 mg by mouth once daily Omeprazole Discontinued 20 MG PO Daily April 18, 2023 1:00am April 23, 2023 4:14pm Start: 12-07-2022 take 1 capsule by mo [facility] once daily Omeprazole 20 MG 1 capsule 30 minutes before morning meal Orally Once a day for 30 day(s) Nov, Active Problems Active Problems Problem Classification Problem Date Documented Date Episodic/Chronic Abdominal pain (20 sources) Abdominal pain; Translations: [Unspecified abdominal pain] Onset: 02-28-2017 Episodic Anxiety disorders (18 sources) Mixed anxiety and depressive disorder; Translations: [Anxiety disorder, unspecified] Onset: 07-27-2022 Resolved: 11-17-2020 07-27-2022 Chronic Attention-deficit, conduct, and disruptive behavior disorders (13 sources) Attention deficit hyperactivity disorder; Translations: [Attention-deficit hyperactivity disorder, unspecified type] Onset: 02-13-2013 03-29-2023 Chronic Blindness and vision defects (1 source) Visual impairment; Translations: [Unspecified visual loss] Onset: 12-26-2016 Chronic Blindness and vision defects (1 source) Unspecified visual disturbance Episodic Calculus of urinary tract (20 sources) Kidney stone; Translations: [Calculus of kidney] Onset: 07-27-2022 Episodic Chronic obstructive pulmonary disease and bronchiectasis (2 sources) Bronchitis; Translations: [Bronchitis, not specified as acute or chronic] 11-21-2023 Episodic Contraceptive and procreative management (2 sources) Surveillance of depot contraception done; Translations: [Encounter for surveillance of injectable contraceptive] Episodic Disorders usually diagnosed in infancy, childhood, or adolescence (20 sources) Adult attention deficit hyperactivity disorder ; Translations: [Other specified behavioral and emotional disorders with onset usually occurring in childhood and adolescence] Onset: 07-27-2022 Chronic Early or threatened labor (1 source) Premature/false labor; Translations: [ labor without delivery, unspecified trimester] Episodic Esophageal disorders (20 sources) Gastroesophageal reflux disease; Translations: [Gastro-esophageal reflux disease without esophagitis] Onset: 12-03-2017 Chronic Essential hypertension (20 sources) Essential hypertension; Translations: [Essential (primary) hypertension] Chronic Genitourinary symptoms and ill-defined conditions (1 source) Presence of urogenital implants; Translations: [Presence of urogenital implants] Onset: 05-17-2023 Chronic Genitourinary symptoms and ill-defined conditions (5 sources) Dysuria; Translations: [Dysuria] Onset: 05-20-2023 Resolved: 11-17-2020 Episodic Headache; including migraine (11 sources) Migraine with aura; Translations: [Migraine with aura, not intractable, without status migrainosus] Onset: 05-19-2023 Resolved: 11-17-2020 05-20-2023 Chronic Headache; including migraine (4 sources) Headache; including [...] current use of drug therapy; Translations: [Other senior living (current) drug therapy] Episodic Other circulatory disease [...] test, result negative] Episodic Other upper respiratory disease (1 source) Pain in throat Onset: 11-04-2023 Episodic Other upper respiratory infections (6 sources) Acute pharyngitis, unspecified; Translations: [Acute pharyngitis] [...] [Lumbar pain] Onset: 04-08-2017 Episodic Substance-related disorders (8 sources) Nicotine dependence, other tobacco product, uncomplicated; Translations: [Smoker] Onset: 09-04-2021 03-29-2023 Chronic Comment on above: Added secondary to d ocumentation in Social History. Superficial injury; contusion (1 source) Nonvenomous insect bite of trunk without infection; Translations: [Insect bite (nonvenomous) of abdominal wall, initial encounter] Episodic Unclassified (1 source) abdominal pain, dr sent over, difficulty breathing Onset: 05-17-2023 Urinary tract infections (1 source) Urinary tract [...] giddiness; Translations: [Dizziness and giddiness] Onset: 02-01-2022 07-27-2022 Episodic Headache; including migraine (1 source) Headache; Translations: [...] Candidiasis; Translations: [Candidiasis, unspecified] Resolved: 08-20-2018 Episodic Nausea and vomiting (1 source) Nausea with vomiting, unspecified; Translations: [Nausea with vomiting, unspecified] Onset: 05-19-2023 Episodic Nonspecific chest pain (2 sources) Atypical [...] and Corynebacterium diphtheriae antigens (medicinal product); Translations: [Sgqxycqevy-hrvhtft-u ertussis, combined [DTP] [DtaP]] Onset: 11-02-2014 Unclassified (1 source) Other specified indication for care or intervention related to labor and delivery, unspecified as to episode of care; Translations: [Other specified indication for care or intervention related to labor and delivery, unspecified as to episode of care] Results Test Name Value Interpretation Reference Range Facility Urology Office/Clinic Noteon 11-20-2023 Urology Office/Clinic Note Urology Office/Clinic Note HPI Staff 23 yo male here for 6 mos f/up with KUB. Previous dx: kidney stone. S/p cysto, L stent removal, L URS/nephroscopy, holmium laser ablation and basket extraction L renal calculi, basket extraction L ureteral calculus 06/13/23. KUB done 11/19/23 Dysuria: Pt. sates having burning with urination Incomplete bladder emptying: _ Hematuria: Pt. states she has seen gross hematuria since burning started Frequency: every hour Urgency: yes Nocturia: no Stream: good stream Post void dripping: no Wearing pads/ Depends: no Urge incontinence: no Stress incontinence: occasionally Incontinence without Sensory Awareness: no Abdominal pain: Pt. states having occasional mild Rt side pain Flank pain: History of Present Illness Tests reviewed: reviewed UA, KUB and stone analysis. I have reviewed the previous health record information and history for this patient from Dr. Claros. I have reviewed and verified the staff [...] See HPI. Physical Exam Vitals & Measurements HT: 63 in HT: 160 cm WT: 94.8 kg WT: 208.56 lb BMI: 37.03 General Appearance: alert , no acute distress, well nourished, well developed female. Assessment/Plan 23 yo female following up to kidney stones. Portions of this record may have been created with voice recognition artificial intelligence software, specifically [employer] and or [employer]. Substitutions may have occurred due to the inherent limitations of voice recognition and artificial intelligence software. 1. Kidney stone (N20.0: Calculus of kidney) Pt was seen at [facility] on 01/22/23 due to left sided abdominal pain. CT AP w/o Con 01/22/23 - bilateral nonobstructing punctate stones, as well as stones measuring 5mm and 8mm withing the lower pole of the Lt kidney. KUB 03/19/23 - multiple Lt renal stones, largest measuring up to 9mm KUB 04/18/23 shows calcifications on the left measuring up to 12 mm. S/p cysto, L stent, L ESWL 04/18/23. KUB 04/26/23 shows multiple stone fragments within inferior pole of the left kidney. Stent placed. KUB 05/20/23 Left ureteral stent with ends looped in the region of the left renal pelvis and urinary bladder. No distinct calcifications radiographically projecting along the course of the stent. Possible small left renal calculi measuring up to 4 mm, or bowel debris. No distinct calcifications projecting over the right kidney or expected course of the right ureter. Renal US 05/20/23 shows left partially imaged ureteral stent. CT AP wo IV con 05/17/23 Nonobstructing calculi measuring 0.3 cm in the superior pole left kidney and 0.8 cm in the inferior pole of the left kidney. Punctate nonobstructing right interpolar renal calculus. Pt presented to [facility] 05/20/23 with hematuria. S/p cysto, L stent removal, L URS/nephroscopy, holmium laser ablation and basket extraction L renal calculi, basket extraction L ureteral calculus 06/13/23. Stone analysis ~70% ca ox monohydrate, 20% ca ox dihydrate, 10% hydroxyapatite. Pt was mailed a LithoLink kit but has not yet completed workup. Pt states she still has the kit at home. Voices that she does not have lab slip at home for serum lab portion. Will provide today. Pt states she stopped drinking pop. KUB 11/19/23 [facility] - Probable small calculus in the left mid kidney. -Complete metabolic workup, provided lab slip today for serum portion -Follow up in 1 year w/ KUB Continue to push fluids. Avoid caffeine. Lemonade is good. Follow-up With When Contact Information SHAWN COOK, Viral Catalan, URL [address] [place] [id number]- Additional Instructions: 1 year w/ KUB Patient Education Dietary Guidelines to Help Prevent Kidney Stones IJudy, personally scribed for Dr. Claros on 11/20/2023 15:37:45. . Documentation recorded by the scribeJudy, accurately reflects the services(s) I performed and decisions made by me. Authenticated by Dr. Claros on 11/20/2023 15:39:46. Problem List/Past Medical History Ongoing Abdominal pain Flank pain Kidney stone Smoker Historical Acid reflux ADHD - Attention deficit disorder (more content not included)... Normal [facility] Comment on above: Result Comment: Elec tronically Signed By: Viral CLAROS MD\.br\Date and Time Signed: 11/20/23 15:40 EDT\.br\Electronically Co-Signed By: Judy Daily\.br\Date and Time Co-Signed: 11/20/23 15:37 EDT XR ABDOMEN AP 1 VWon 024 XR ABDOMEN AP 1 VW XR ABDOMEN AP 1 VW HISTORY: A 23-year-old female with the history of the kidney stone. TECHNIQUE: Supine abdomen: One view COMPARISON: Comparison is made with the CT scan of the abdomen and pelvis of 05/17/2023. FINDINGS: The bowel gas pattern is unremarkable. Both kidneys are partially obscured by bowel gas shadows and fecal material. A faint calcific density seen in the left mid kidney suggestive of small calculus. No abnormal calcific density seen in the ureters. There is a phlebolith in the pelvis on the left side. There is no large soft tissue mass. Visualized bones are unremarkable. IMPRESSION: * Probable small calculus in the left mid kidney. Finalized by Tanvir Hurt MD on 11/19/2023 7:43 PM Normal [facility] RAPID STREP SCR NURSINGon S. pyogenes Ag EIA Ql (Throat) Positive Abnormal NEG [facility] Comment on above: Performed By: #### C BCA, CMP #### [facility] ([id number]) [address] [place] [address], [place] [address] SARS/FLU A+B/RSV by NAAT/Mol ecularon 11-04-2023 SARS/FLU A+B/RSV by NAAT/Molecular FLU A PCR Negative (qualifier value) FLU B PCR Negative (qualifier value) RSV by PCR Negative (qualifier value) SARS CoV 2 Not detected (qualifier value) NOTE The Xpert Xpress SARS-CoV-2/Flu/RSV Plus test is a rapid, multiplexed real-time RT-PCR test intended for the simultaneous qualitative detection and differentiation of SARS-CoV-2, influenza A, influenza B and respiratory syncytial virus (RSV) viral RNA from individuals suspected of respiratory viral infection consistent with COVID-19 by their healthcare provider. This test has not been validated in asymptomatic patients. The Xpert Xpress SARS-CoV-2 test is intended for use by qualified and trained operators who are performing tests using either [employer] or [employer] systems and is limited to laboratories that meet the CLIA requirements to perform high and moderate complexity tests. The Xpert Xpress SARS-CoV-2/Flu/RSV Plus is only for use under the Food and Drug Administration's Emergency Use Authorization. Results are for the simultaneous detection and differentiation of SARS-CoV-2, influenza A, influenza B and RSV nucleic acids in clinical specimens. SARS-CoV-2, influenza A, influenza B and RSV RNA identified by this test are generally detectable in upper respiratory samples during the acute phase of infection. Positive results are indicative of the presence of the identified virus, but do not rule out bacterial infection or co-infection with other pathogens not detected by this test. Clinical correlation with patient history and other diagnostic information is necessary to determine patient infection status. The agent detected may not be the definite cause of disease. Negative results do not preclude SARS-CoV-2, influenza A, influenza B and RSV infection and should not be used as the sole basis for treatment or other patient management decisions. Negative results must be combined with clinical observations, patient history and epidemiological information. An Invalid result may occur with specimen-associated inhibition unable to be resolved with specimen repeat. Fact Sheet for Healthcare Providers: https://www.fda.gov/az tressa/920379/download Fact Sheet for Patients: https://www.fda.gov/az tressa/371907/download Normal [facility] Comment on above: Performed By: #### C BCA, [facility] #### [facility] ([id number]) [address] [place] [address], [place] [address] Coding Summary.on 08-09-2023 Coding Summary. [id number]+PG hl YWQ+UO0UPJSfS44gfPJiuF 9zT8UWCPwOZfmdCOTHEBsW GsCigiJlHQ9eeWZgGXOk IC8+FK4gQADuTnvwdHSht5 K5yOY8M39lqy7cPJfpvAT2 AQMjVuDfqajel1qvaMe2FH cuNmluOyBt MWPprM77UZN9bQ23Va10qE PnyCXzn6buvVh3UyIjCWHl YOC8iFoiAHzbb7DfDNOaR8 6wpPVtg0P0 OCRifKgtvPIiRgFhyHY0rQ 5qGGotzzdot1ogxcvaCpc9 sk22lQPwy9A9yIQ8N0Yfej G7HLJesXRz YufyeMRCzO6ocsckm4alek fzElPfQHCwUBt7FPq7JTMt qPnxZmNqLR60XEH4GEJqof YwI8UmROFy xQmfQzX0l8M3Zq6NG4DGYh wdJ7WTRHKYXTgieFM+PC90 ve05N7UmQscrYjr0NTItBT W9xXO3vV6z KQOhVXdoi6D3hHS7G8Xcsp Gdbj2zw1agQNNmMDltG50e wGEee4L2PQCihOO8RXRwfD ftEkPogY61 Oyc+UKXwxDela2QwCweji0 dbs8poyQg1DipgLNVqdcCx eSgsQWQ2p0OaWa3dZICflH M8sSH1uF5o LzJrYaF9BRmcU063FiYidP UhXqihC57wJ6NmhZH+PHRy Clg6XQIhqYbfBA7hJ2EiIY RpbmctbGVm wJdbOO2qAUWvimpcMCAxoN 7vSHYtA9z8XgMtXnI7ASmi K2CfZATosrhdVs06eS0fYn XpRlA8UMfo V8ZvtpE0VBWwfCHfBWobAX T4M18sb2C9EXDtXRUqSZA7 sIG7iP7aeSsofphzoPXcbT sgdmVydGlj AObiCSosR589PJLhpAreQa NvZGluZyBEYXRlOiAgMDYv MjEvMjAyNDwvdGQ+PHRkIH R8qWnrZGTa kZFpRKqkWk0juVtrpCkfVM 6tTYSufaouVZFcqU1pNOUs mHJxjLsxVI0xXNMoopozm9 08MeSlEQD1 HTYjxCDzT2JsmE8pApXnCJ CfMIQzL7TegVNyCEogA523 LTorYlS9WQMvgbFlT0SrOL FsaWduOiB0 z2Q0Cb9It1OuuodzR4LuzW VuZrQuFuswMHr8F4DgPidv dHI+KB97HJEjBX50GEp0QW Q6mOimCCco FSWgZ8FesX8nUqIcGEOwZC RkOyc+PHRhYmxlIHdpZHRo CQmkEWClSiLgjPdmLR4xNx 9yZGVyLWNv eSblcINrWqXoz4nmAGEfSD mmKJ0myTquB1SqnXI9YEMe k6q9Gl21A33jX0GdiGQ+PG IdpYC7xYG6 zB6zBxWbKcL8PZdhM254At RlrKMxYsvnu1apk4tsaEa0 OxJ0GETvbrRswXiwQNK5p6 VgCt24X81j IHdpZHRoPSIxNSUiIHZhbG oqmo0npD0zRu3+PGNvbCB3 wCU2iK9xYbRiQkP2RDzsX5 49InRvcCIv Xrrgu2rez0dctDf6JmBuMY NklaUyyMbxRIP9e3PxSw48 K1MdaFyha2MtDoz2ib09aT Gut8W9rHG4 Y9UgNDRvibcrkKTfkMpmJB 9hGDDudnnuLJSeeZ7vWJTn B6x7SzZnUqC9ZVixZ2Unjc F0IDKdiXSz RFOheIJWiL6ahyrxo7nhfk aqFcTjFTIeLIw2VOx3LIDk zRzrUmTlIPY3VsP4WNM0rA WxzW3rdCev cucrwA7iGrz+CRG5cCHucL QFAD1nGvlfvZV+PHRkIHN0 oVmjFLxkVUEefM1aSLIfS6 i9EhIuHnV2 CAqbL6EunsV9JVYzwPQzHY BtyOERgZ2vtgvqz4kvlmii XfDhPHWgNRl3ALc1AWTstR duOiBsZWZ0 KmL7GLO7hWJqcU4uwZtomo hbuC3fLum+QmlydGggRGF0 KGb5S7SzHjm2UNXpuOgoEH 0ncGFkZGlu Vn5ppNpluTgmME4dJNKifz ily264AzKpl2jyJSFoxJPq ZDizARR6W44kx7Z6XMZvTV LnOTX3dDS4 nA5dmJwceqdnsODzqZjalk ZmkKcgKFyeWYsgK640BLNa lJpaGlJlQRu5D4JlMqs7BB MazOhaSM8z fMYmXMlaPd0zcNucbOtiYY 1xIVKtsphpr363RmZtm3wn HINoaJPyJVgkPLN3V38ph9 E4BGZjGQUi GEE8nEI7bI5pzLpmigcbmW VmdDsgdmVydGljYWwtYWxp V058GUKfrFlvEyDcpFr7M7 LhPch2JHCy iEnxFB3prSSqVZwlZe2gyB oxwThzTO6kUIXlyxdlb245 LsNky3wxEBTffTBcPRskTC Q7C79qa6O7 XTCmENGtLAO6fCH4fF9ulG lnbjogbGVmdDsgdmVydGlj EUmnRXvvQ514TLLyhAliIb BhdGllbnQg AVvsQDy2N1XcTeqqiVS+PC 97AZLcOV60eTAmmFSfu4qm yFt0AgVnMORjDIG8jYapMR ffp7IlMXXf T37hfCFzx6Z8RHHimFcusN RzPmGzbUU2wQ3mBKzsmpjk f7acykacBdwlm3uelf57dR 89E19oFBui ZHRoPSIzMCUiIHZhbGlnbj 7yxL3wFu0+VBDxoET8vUR7 vM0uNIPtBbK3YPkbZ001Qq RvcCIvPjxj x5nnd6mwcKq0NfM5CITsec GqfAdqRHF5q4LjTi23B34x IHdpZHRoPSIyMCUiIHZhbG udbr6gbX3u Ii8+MGVdiZG2zYD2pO0tOr WkDlB8JJqfN768JcAjvYLf CpzgU05xG7AwcIB+PHRyPj y3RTHlhYyf TE9qcBJjHBgaMj3uJAE5Ps JkNaMrDBkzP9WhFRIrbalj lhfqkRD8WYVeCCFljA79Sg 9udDogMTBw iVWBzN9dixfjx4lklrcfWh LiPPVyVRo1LFx6XTEwxPxu UjQcAWL2ElH6ESJ0uPTcjS 1hbGlnbjog pP2tT0YhANCzwaasZf12jS 6zEcBtMdM9FDmcFlu+TEFX H89AUMFHZZbQMTogLHzlwK Q+PHRkIHN0 zVeqHUnxQHDqaT1fASJyT2 d7PkHnYtA0QScfA0JyRXOn ndhkTy47gJ2nXwUgDxK4IK xeM0RyxhY1 RJYcbNPvZIeqERG5W78io1 B4HURqNFWlENS0mHT7xF4g bGlnbjogbGVmdDsgdmVydG ljYWwtYWxp G161NUAvlUtnWdPgPtMpGr KiPHL3V0MjAzv3JKDfwHtz WP3huEPrLCwuVx6aaGftmR urQR8uLTYe twivJYDpvU5xYQKgkHZqqS uvKA7xMUCttnwkd846MoEc FHW8RTZjsGUpA5TjyI8nIv AjMDAwMDAw C3NcgXRwPCdyD198NHxcRq I1DZOwcfEiB8IyZBAtcNzm XkH2j8E6Qq1dGRHLJQRhqv wvdGQ+PHRk KYH7rExtYWdoHMRdzV0tGS PdN1b4FaLyWeX9BUuyK4En HUDklyvlUm29wR2tOnEtTy Z3BErnB0Gk vyB7MLOzsNGsCZyjJTL3E6 5mu3S3CKKcQWGaWGY1rKX3 iA3xeBhntgrjpDOlaDnifv VydGljYWwt YFoaU675IJLyfBevKnZurG FsZTwvdGQ+MAHmJDI3qZzg TJdzPOJphQ5oYEMaA8s2Ql MpHxG4FTjh O0EmCYCpieeqTr78nD1hOr EfZmQ6IUllD3VffbH2LHIu cZUjCRsrIAG3E26un8D1RW MwMDAwMDA7 iEW7rC5hjFyjdomyuIEriI mvhlFfdRqdOHeuLJiuD382 TRBcqYofSd83aLBovGpyda J5Z9GgAtkb dHI+DS35MNTdLT35tNFabX Seo2ihvBx7PhUrYUEtJCY8 dIecNLesw1MkFKHqO63sqI Bwx2I7YDZx mPbfxWVgIbLlwNC6qG0wWS lsuxajh6ywcltnAktfu0kp qp42vX03R33lQHltPNNgXI IzMCUiIHZh uTgjuj2phG4vDm6+PGNvbC K9nVL8jV7wQpCdOpL6DRkz U354OuSxuBZgLsiwq9hkj0 cmdTi3FjTu EXSkgmCshLolCQO2v2CmLw 28Z76mUIycXTJpKJGqJHUl ZTKsuWarfq6rbZ1nMi5+PC 5og8hfnq47 kK16eZG+GICgTSD6qCzlHN osNJNoiH8gSJnzTaS0KRAd ZvKgiE35fFXgZXsxFt4tfT awqCirSE6k DHCfpwasj075GyYzz1ccXJ QuvTSnQFtjAWY8J69ut8I7 RRZsPQFwBCI4qDA4vL2poS lnbjogbGVm dDsgdmVydGljYWwtYWxpZ2 99CUQxjQqlHgMylVWgR9vp vnXWZU7lTcwkgMH+PHRkIH Q5iGqjPBeo QURecV5qHRPyV6r1YxZjJd S6KUilM2VkfjY3FNFhpHHg SQSykAVSrA4qzxjzx6lxyj ogIzAwMDAw OTa9OIu6BTUrxXxnVvXwQP W5AcT9XTK9pTZawD6ckDxk zxhkpS7dRxi+RklOOjwvdG Q+PHRkIHN0 hIipDOurLNEgzV4lTVXcS0 z4PsHtKcR7VGdtH5MkwvW3 ISBbgQWaYOVcfKXBgR4uuf cfj8fmadaz VuNrUVOuFNc6XHd9WAJrkS qfYfFgCGY0PhA5CCT2bNIv wU9dtWvonvehiK3vHbn+TV JOOjwvdGQ+ KWPyAPQ6aKepODpsAMBbvH 2kHCTcG1z7ZiHsOxE8GRpi X6QimrN6KYRgzDOaLSStrX LTeU4awwbw a0dtyfofBvDrIDDyALf2HS q2UWCjiCpnTvGsLSJ2LmT9 VFS8nAKpfZ1qcCrvjkkkeW 9wOyc+UGF5 SPY0ON98TP10X2LkFqicnP FibGU+PHRhYmxlIHdpZHRo RZopAMRpXqGtqIrbJM1vWb 9yZGVyLWNv bGxhcHNlOiBjb (more content not included)... Normal [facility] Physician Orderon 08-08-2023 Physician Order [id number]#1 .00TIFF [facility] Formson 08-06-2023 Forms [id number]#1.0 0TIFF [facility] Physician Orderon 07-23-2023 Physician Order [id number]#1. 00TIFF [facility] Calculus Analysison 06-23-19 24 Calcium oxalate dihydrate Infrared spectroscopy (Stone) [Mass fraction] 20 % Invalid Interpretation Code [facility] Comment on above: Performed By: #### 1 [id number] ####[facility] [address] [place] [address] Calcium oxalate monohydrate (Stone) [Mass fraction] 70 % Invalid Interpretation Code [facility] Comment on above: Performed By: #### 1 [id number] ####[facility] [address] [place] [address] Calculus analysis [Interp] Comment Invalid Interpretation Code [facility] Comment on above: Result Comment: Calc ium phosphate (hydroxyl form) includes hydroxyapatite, amorphous calcium phosphate, and whitlockite. Hydroxyapatite is the most common of the calcium phosphate salts found in human kidney stones. Performed By: #### 1 [id number] ####[address] [address] Color (Stone) Brown Invalid Interpretation Code [facility] Comment on above: Performed By: #### 1 [id number] ####[facility] [address] [place] [address] Composition Comment Invalid Interpretation Code [facility] Comment on above: Result Comment: Perc entage (Represents the % composition) Performed By: #### 1 [id number] ####[facility] [address] [place] [address] Disclaimer: Comment Invalid Interpretation Code [facility] Comment on above: Result Comment: This test was developed and its performance characteristics determined by [employer]. It has not been cleared or approved by the Food and Drug Administration. Performed at: [address] [id number] PhD Norman Rodrigez Performed By: #### 1 [id number] ####[facility] [address] [place] [address] Hydroxyapatite: 10 % Invalid Interpretation Code [facility] Comment on above: Performed By: #### 1 [id number] ####[facility] [address] [place] [address] Laboratory comment Yunier (Report) Comment Invalid Interpretation Code [facility] Comment on above: Result Comment: Selene cuevas questions regarding Calculi Analysis contact [facility] at: [phone]. Performed By: #### 1 [id number] ####[facility] [address] [facility] [place] [address] Please Note: Comment Invalid Interpretation Code [facility] Comment on above: Result Comment: Calc marylin report will follow via computer, mail or education trainer delivery. Performed By: #### 1 [id number] ####[facility] [address] [facility] [place] [address] Size (Stone) [Entitic vol] 3x3 Invalid Interpretation Code [facility] Comment on above: Result Comment: Mult iple pieces received. Dimensions of the largest piece reported. Performed By: #### 1 [id number] ####[facility] [address] [facility] [place] [address] Specimen source subject Nom Kidney Invalid Interpretation Code [facility] Comment on above: Performed By: #### 1 [id number] ####[facility] [address] [facility] [place] [address] Stone Photo Comment Invalid Interpretation Code [facility] Comment on above: Result Comment: Phot ograph will follow under a separate cover Performed By: #### 1 [id number] ####[facility] [address] [facility] [place] [address] Weight (Stone) 75 mg Invalid Interpretation Code [facility] Comment on above: Performed By: #### 1 [id number] ####[facility] [address] [facility] [place] [address] Progress Note-Physicianon Progress Note-Physician Patient: SUNSHINE RYDER Age: 23 years Sex: Female : 2000 Associated Diagnoses: None Author: MD Marlyn, Hiwot Valadez Postoperative Information Postoperative disposition: Postoperative disposition: To PACU. Optimetrix number: Optimetrix number [id number]. Anesthetic utilized: General. Health Status Allergies: Allergic Reactions (Selected) Severity Not Documented Codeine- Rash, hyperactivity and hives. Physical Examination VS/Measurements Pain Assessment: Controlled. General: Awake, Alert, Appropriate. Respiratory: Adequate air exchange. Cardiovascular: Stable, Normal peripheral perfusion. Neurological: Normal sensory function, Normal motor function. Assessment Anesthetic outcome No anesthetic complications noted. Adequate pain relief. able to void without difficulty, able to ambulate with assist, tolerating PO intake, no N/V. Review / Management Condition: Stable. Plan Transfer/Discharge: Transfer/Discharge Discharge when meets criteria ( To home ). Normal [facility] Comment on above: Result Comment: Elec tronically Signed By: MD Marlyn, Hiwot Valadez\.br\Date and Time Signed: 06/19/23 08:21 EDT Progress Note-Physician Patient: SUNSHINE RYDER Age: 23 years Sex: Female : 2000 Associated Diagnoses: None Author: MD Cline Ahmad F Preoperative Information Time patient last ate or drank:=== (npo 8 hours) Anesthesia history: Patient history: No prior anesthesia problems. Re-evaluation prior to induction: Completed, Initial evaluation reviewed. Review of Systems Respiratory: No shortness of breath. Cardiovascular: No chest pain. Hematology/Lymphatics: No bruising tendency, No bleeding tendency. Health Status Allergies: Allergic Reactions (All) Severity Not Documented Codeine- Rash, hyperactivity and hives. Canceled/Inactive Reactions (All) No Known Allergies Current medications: (Selected) Prescriptions Prescribed Cipro 500 mg Tab: 500 mg = 1 tab(s), Oral, BID, # 10 tab(s), Refills(s) 0, Pharmacy: [facility]/pharmacy #[id number], 163.5, cm, 06/13/23 10:01:00 EDT, Height/Length Dosing, 87.1, kg, 06/13/23 10:01:00 EDT, Weight Dosing Flomax 0.4 mg Cap: 0.4 mg = 1 cap(s), Oral, Daily, # 30 cap(s), Refills(s) 0, Pharmacy: [facility]/pharmacy #[id number], 165, cm, 04/01/23 6:28:00 EST, Height/Length Dosing, 94.7, kg, 04/01/23 6:28:00 EST, Weight Dosing Documented Medications Documented Adderall: 25 mg, Oral, BID, Refill(s) 0 SUMAtriptan 100 mg Tab: 100 mg = 1 tab(s), Oral, Daily, PRN Headache, Refills(s) 0 Tylenol 325 mg Tab: = 2 tab(s), Oral, q4hr, Pain - Moderate carvedilol 6.25 mg Tab: Refills(s) 0 famotidine 20 mg Tab: 20 mg = 1 tab(s), Oral, Daily, Refills(s) 0, Control of stomach acid medroxyPROGESTERone 150 mg/mL IM Susp: 150 mg = 1 mL, IntraMuscular, q3mo, Refills(s) 0, control/menstrual regulation topiramate 25 mg Tab: 25 mg = 1 tab(s), Oral, BID, Refills(s) 0 Problem list: All Problems Hypertension / SNOMED CT 4159860155 / Confirmed ADHD / SNOMED CT 8375251306 / Confirmed Kidney stone / SNOMED CT 533358573 / Confirmed Flank pain / SNOMED CT 850933851 / Confirmed Abdominal pain / SNOMED CT 66914793 / Confirmed Smoker / SNOMED CT 260400365 / Confirmed Added secondary to documentation in Social History. Resolved: Kidney stone / SNOMED CT 437514472 Resolved: Migraine / SNOMED CT 70906164 Resolved: Acid reflux / SNOMED CT 6589708138 Resolved: Hypertension / SNOMED CT 48856099 Resolved: ADHD - Attention deficit disorder with hyperactivity / SNOMED CT 3185217149 Resolved: Stent placement / SNOMED CT 033607532 stent in ureter Histories Past Medical History: Resolved Kidney stone (466191569): Resolved. Migraine (33846721): Resolved. Acid reflux (0073689029): Resolved. Hypertension (39775680): Resolved. ADHD - Attention deficit disorder with hyperactivity (8606520374): Resolved. Stent placement (020846002): Resolved. Comments: 05/20/2023 EDT 11:51 EDT - Yaneli DOUGLAS, Radha Patiño stent in ureter Family History: Kidney stone Mother Hypertension Mother Diabetes mellitus type 2 Grandparent Alcoholism Father Migraine Mother Stroke Grandparent Procedure history: Cystoscopy and uretoscopy (4356326351) on 06/13/2023 at 23 Years. Comments: 06/13/2023 14:34 EDT - Audrey DOUGLAS, Jill Jerez Left stent removal, stone extraction, stone basket and homium laser cystoscopy, ESWL of left kidneym with stent placement (61078156) on 04/18/2023 at 23 Years. Tonsillectomy (367130282). wisdom extraction (60313967). Lithotripsy (289514413). Social History Social & Psychosocial Habits Alcohol 06/13/2023 Risk Assessment: Denies Alcohol Use Substance Abuse 06/13/2023 Risk Assessment: High Risk 06/13/2023 Use: Current Type: Marijuana Frequency: Several times per day Tobacco 06/13/2023 Risk Assessment: High Risk 06/13/2023 Smokeless tobacco use: Current vaping or e-cigar Type: Vaping . Physical Examination Please see preop flow sheet Airway: Mallampati classification: II (soft palate, fauces, uvula visible). Respiratory: Lungs are clear to auscultation. Cardiovascular: Normal rate, Regular rhythm. Neurologic: Alert. Review / Management Results review Interpretation of Outside Results Chest x-ray results Radiology results ECG interpretation Condition Plan [place] [employer] (ASA) physical status classification: Class II. Anesthetic Preoperative Plan Anesthesia: General. . Anesthetic plan, risks, benefits, and alternatives discussed with the patient and/or family. Risks discussed: nausea, vomiting, headache, sore throat, dental injury, serious complications. Patient verbalized understanding. Communication: face to face with patient 5 minutes. [facility] Comment on above: Result Comment: Elec tronically Signed By: MD Marlyn, Hiwot Valadez\.eduardo\Date and Time Signed: 06/19/23 08:20 EDT Postoperative Documentson Postoperative Documents [id number]#1. 00TIFF [facility] IntraOperative Documentson 0 06-17-2023 IntraOperative Documents [id number]#1.0 0TIFF [facility] Consent for Anesthesiaon Consent for Anesthesia [id number]#1. 00TIFF [facility] Discharge Instructionson Discharge Instructions [id number]#1. 00TIFF Normal [facility] IntraOperative Documentson 0 06-14-2023 IntraOperative Documents [id number]#1. 00TIFF Normal [facility] Main OR Intraoperative Recor don 06-14-2023 Main OR Intraoperative Record IntraOp Document Type FT Summary Primary Physician: Viral CLAROS MD Finalized Date/Time: 06/14/23 13:16:52 Pt. Name: RYDERSUNSHINE /Sex: 2000 Female Med Rec #: [id number] Physician: Viral CLAROS MD Financial #: [id number] Pt. Type: A Room/Bed: [place] [address] Admit/Disch: 06/13/23 09:25:53 - 06/13/23 14:20:00 Institution: Case Times FT Entry 1 Patient Times In Room 06/13/23 11:37:00 Out Room 06/13/23 12:16:00 Procedure Times Start 06/13/23 11:45:00 Stop 06/13/23 12:08:00 Anesthesia Times Start 06/13/23 11:37:00 Stop 06/13/23 12:16:00 Last Modified By: Glenny Monsivais RN 06/13/23 12:16:05 General Comments: 06/14/23 Chart opened for charge review Chuck COELLO Case Attendance FT Entry 1 Entry 2 Entry 3 Case Attendee Rishi WALSH, Robert CLAROS MD, Viral Rivera LPN, Cristine Avendaño Role Performed NICO Surgeon - Primary Scrub - Primary Time In 06/13/23 11:37:00 06/13/23 11:37:00 06/13/23 11:37:00 Time Out 06/13/23 12:16:00 06/13/23 12:16:00 06/13/23 12:16:00 Procedure CYSTOSCOPY RETROGRADE CYSTOSCOPY RETROGRADE CYSTOSCOPY RETROGRADE STENT INSERTION(Left), STENT INSERTION(Left), STENT INSERTION(Left), CYSTOSCOPY W/ HOMIUM CYSTOSCOPY W/ HOMIUM CYSTOSCOPY W/ HOMIUM LASER(Left) LASER(Left) LASER(Left) Comments DR CLINE SUPERVISING Last Modified By: Loi DOUGLAS, Glenny Monsivais RN, Glenny Sloan RN 06/13/23 12:16:06 06/13/23 12:16:06 06/13/23 12:16:06 Entry 4 Entry 5 Case Attendee Loi DOUGLAS, Jude Faith Role Performed Comber Fixer - Primary Scrub - Relief Time In 06/13/23 11:37:00 06/13/23 11:41:00 Time Out 06/13/23 12:16:00 06/13/23 12:16:00 Procedure CYSTOSCOPY RETROGRADE CYSTOSCOPY RETROGRADE STENT INSERTION(Left), STENT INSERTION(Left), CYSTOSCOPY W/ HOMIUM CYSTOSCOPY W/ HOMIUM LASER(Left) LASER(Left) Comments Last Modified By: Loi DOUGLAS, Glenny Sloan RN 06/13/23 12:16:06 06/13/23 12:16:06 Perioperative Protocols FT Pre-Care Text: Implements protective measures prior to operative or invasive procedure, confirms identity before the operative or invasive procedure, verifies operative procedure, surgical site, and laterality Entry 1 Procedure(s) CYSTOSCOPY RETROGRADE Patient Identity Birthday, ID Band STENT INSERTION(Left), Verified (select at Check, Patient CYSTOSCOPY W/ HOMIUM least 2): Participation LASER(Left) Consents / H and P Anesthesia Consent, Operative Site Present Verified HandP, Surgery/Procedure Marking Verified Consent Surgical Site Yes Laterality Verified Yes Verified Procedure Verified Yes Correct Patient Yes Position Verified Availability Equipment, Implant, Prep Dry n/a Verified (If Medication, X-ray Applicable) PreOp Antibiotic Yes Time Out Robert Blackwell CRNA, Given Participants SHAWN COOK, Miguel Taylor LPN, Cristine Avendaño, Loi DOUGLAS, Maggie Gomez Kendall R Time Out Complete 06/13/23 11:42:00 Outcomes Met? Yes Last Modified By: Glenny Monsivais RN 06/13/23 11:43:46 Post-Care Text: The patient is free from signs and symptoms of injury caused by extraneous objects Allergy Information FT Pre-Care Text: Verifies allergies Entry 1 Allergies Reviewed? Yes Allergies Reviewed Self/Patient With Outcomes Met? Yes Last Modified By: Glenny Monsivais RN 06/13/23 11:43:48 Post-Care Text: The patient received appropriate medication(s) safely administered during the perioperative period Surgical Procedures FT Entry 1 Entry 2 Procedure Description Procedure CYSTOSCOPY RETROGRADE CYSTOSCOPY W/ HOMIUM STENT INSERTION LASER Modifiers Left Left Surgeon Description CYSTOSCOPY, LEFT CYSTOSCOPY, LEFT URETEROSCOPY, HOMIUM URETEROSCOPY, HOMIUM LASER, STONE BASEKT, LASER, STONE BASEKT, STONE EXTRACTION, LEFT STONE EXTRACTION, LEFT STENT REMOVAL AND STENT REMOVAL AND HOMIUM LASER HOMIUM LASER Primary Procedure Yes No Primary Surgeon SHAWN COOK, Viral CLAROS MD, Viral Catalan Start 06/13/23 11:45:00 06/13/23 11:45:00 Stop 06/13/23 12:08:00 06/13/23 12:08:00 Anesthesia Type General General Surgical Service Urology Urology Wound Class 2 - Clean-Contaminated 2 - Clean-Contaminated Last Modified By: Glenny Monsivais RN, RN, Kimberly Y 06/13/23 12:16:01 06/13/23 12:16:01 General Case Data FT Pre-Care Text: Classifies surgical wound, implements aseptic technique, initiates traffic control Entry 1 Case Information OR OR 1 FT Case Level Level 3 Wound Class 2 - Clean-Contaminated Specialty Urology ASA Class 2 Preop Diagnosis KIDNEY STONE Postop Same As Preop Yes Postop Diagnosis KIDNEY STONE Outcomes Met? Yes Last Modified By: Glenny Monsivais RN 06/13/23 11:47:33 Post-Care Text: The patient is free from signs and symptoms of infection Skin Assessment (Pre Procedure) FT Pre-Care Text: Implements protective measures to prevent skin/ tissue injury due to thermal or mechanical sources (more content not included)... Normal [facility] Pre-Op Checkliston Pre-Op Checklist [id number]#1. 00TIFF [facility] XR Abdomen 1 Viewon 06-14-19 XR Abdomen 1 View Exam Date/Time: 06/13/2023 12:16 EDT Reason for Exam: Kidney stone Report XR Abdomen 1 View : 06/13/2023 11:40 AM CLINICAL HISTORY: Kidney stone. COMPARISON: None available. Intraoperative fluoroscopy was provided for Dr. Viral CLAROS 's procedure. Air kerma mGy: 1.8; fluoroscopy time: 0.3 minutes; dose area product: 139.3 uGym2 No diagnostic images were obtained. Please see Dr. Viral CLAROS 's surgical notes for complete details. Ordering Provider: Viral CLAROS FINAL REPORT Dictated: 06/14/2023 4:10 pm Jose Bajwa DO Signed (Electronic Signature): 06/14/2023 4:10 pm Signed by: Jose Bajwa DO Transcribed by: WILMER Technologist: JASPER Technical Comments Radiation Dose: Ka,r in mGy = 1.80 DAP = 139.30 Normal [facility] Consent for Procedure/Surger yon 06-13-2023 Consent for Procedure/Surgery [id number]#1.0 0TIFF Normal [facility] Consent for Treatmenton 05-20 Consent for Treatment [id number]#1.0 0TIFF [facility] Discharge Instructionson Discharge Instructions SUNSHINE RYDER :2000 Visit Date:06/13/2023 Inpatient Discharge Instructions Your Care Team Admitting Physician - Viral CLAROS MD Referring Physician - Viral CLAROS MD Reason for Your Visit KIDNEY STONE Tests Performed Calculi Analysis Urinary -- Results Pending -- XR Abdomen 1 View -- Results Pending -- Please visit your patient portal for your results or contact your primary care physician. Procedure History ESWL of kidney (04/18/2023), Lithotripsy, Tonsillectomy, Tooth. What to do next Instructions [...] or heavy bleeding, Temperature above 101.5 degrees Pharmacy Information Other: [facility] Discharge Instructions Discharge Instructions New Follow Up Appointments after Discharge Follow Up with Viral CLAROS When: Comments: As we discussed, my plan was to not place a stent but I felt that 1 was needed for a temporary timeframe. You can actually remove this by removing the tape and pulling on the thread. The stent should be then removed without problem. I like to see her back in about 6 months or so with an abdominal x-ray prior. My office should arrange for an order to be sent to what ever facility you would like prior to that visit. I did send a prescription for antibiotics to your pharmacy. Where: [facility] [employer] [address] [address]- Business (1) Medications What How Much When Instructions Next Dose New acetaminophen-hydrocod one (acetaminophen-hydroco done 325 mg-5 mg oral tablet) 1 Tablets By Mouth Every 4 hours as needed for Pain Duration: 2 Days Pickup at [facility]/pharmacy #[id number] New ciprofloxacin (Cipro 500 mg Tab) 1 Tablets By Mouth 2 times a day Pickup at [facility]/pharmacy #[id number] Unchanged acetaminophen (Tylenol 325 mg Tab) 2 Tablets By Mouth Every 4 hours Unchanged amphetamine-dextroamph etamine (Adderall) 25 Milligram By Mouth 2 times a day Unchanged carvedilol (carvedilol 6.25 mg Tab) Unchanged famotidine (famotidine 20 mg Tab) 1 Tablets By Mouth Every day Unchanged medroxyPROGESTERone (medroxyPROGESTERone 150 mg/ mL IM Susp) 1 Milliliter Intramuscular Every 3 months Unchanged oxybutynin (oxybutynin 5 mg Tab) 1 Tablets By Mouth 2 times a day Duration: 30 Days Unchanged sumatriptan (SUMAtriptan 100 mg Tab) 1 Tablets By Mouth Every day as needed for Headache Unchanged tamsulosin (Flomax 0.4 mg Cap) 1 Capsules By Mouth Every day Unchanged topiramate (topiramate 25 mg Tab) 1 Tablets By Mouth 2 times a day Pharmacy Information [facility]/pharmacy #[id number]: [address], [place] [phone] Allergies codeine (Hives, Rash, Hyperactivity) [employer] [facility] [place], [place] Dr. Viral Ramsay Post-operative Instructions for Ureteroscopy, Laser Lithotripsy, Stone Extraction and Stent Placement There are no incisions or dressings to be concerned with, as the procedure was performed inside the urinary system. For 24 hours after surgery: ? No driving or operating machinery ? Do not make important decisions ? Do not consume alcohol, sleeping pills Stent Placement You may have a stent which spans the distance between your bladder and your kidney, allowing urine to pass through. It prevents blockage from swelling, kidney stones in ureter (tube connecting the kidney to the bladder), or scars. The presence of the stent may cause: ? Back or side pain, especially with urination ? Frequent or urgent urination ? Bladder pressure or pain ? Blood in urine You may pass stone debris or small blood clots, which is expected. Drinking plenty of water to dilute the urine may help. If there is a thread coming out of urinary channel, be careful not to accidently pull on this, as it is attached to the stent. The stent will most likely be removed in the office during a short procedure in which a scope is placed into the bladder, the stent is grasped and removed. At other times the stent may need to stay longer, either in preparation for other procedures or for other reasons. If it is to remain senior living, however, changes of the stent are required (about every 3-4 months). Diet You may resume your normal diet, but you may want to start slowly and avoid spicy food, caffeine, carbonated beverages and alcohol, especially if you have a stent. Your diet and fluid intake may make irritation from the stent worse. Activity You may resume your normal activities, (more content not included)... [facility] Comment on above: Result Comment: Elec tronically Signed By: Jill Ventura RN\.br\Date and Time Signed: 06/13/23 13:56 EDT H&P Updateon 06-13-2023 H&P Update [id number] 0TIFF [facility] Inpatient Patient Summaryon 06-13-2023 Inpatient Patient Summary [address] [place] [address] [facility] Clinical Discharge Instructions PERSON INFORMATION Name: SUNSHINE RYDER PHYSICIANS Admitting Physician: Viral CLAROS MD Attending Physician: Viral CLAROS MD PCP: FUENTES COOK, GAYE Smyth Diagnosis: Comment: PATIENT EDUCATION INFORMATION Instructions: [id number] Utereroscopy,Lithotrip sy, Stone Extraction, Stent Placement (Custom) Medication Leaflets: Follow up: With: Address: When: Viral CLAROS [address] [place], [place] [address], [address], [facility] [address] [place] [id number] Business (1) Comments: As we discussed, my plan was to not place a stent but I felt that 1 was needed for a temporary timeframe. You can actually remove this by removing the tape and pulling on the thread. The stent should be then removed without problem. I like to see her back in about 6 months or so with an abdominal x-ray prior. My office should arrange for an order to be sent to what ever facility you would like prior to that visit. I did send a prescription for antibiotics to your pharmacy. MEDICATION LIST New Medications [facility]/pharmacy #[id number], [address], [place] [id number], [phone] acetaminophen-hydrocod one (acetaminophen-hydroco done 325 mg-5 mg oral tablet) 1 Tablets By Mouth every 4 hours as needed Pain for 2 Days. Refills: 0. ciprofloxacin (Cipro 500 mg Tab) 1 Tablets By Mouth 2 times a day. Refills: 0. Medications to Continue with No Changes Other Medications acetaminophen (Tylenol 325 mg Tab) 2 Tablets By Mouth every 4 hours. amphetamine-dextroamph etamine (Adderall) 25 Milligram By Mouth 2 times a day. carvedilol (carvedilol 6.25 mg Tab) famotidine (famotidine 20 mg Tab) 1 Tablets By Mouth every day. medroxyPROGESTERone (medroxyPROGESTERone 150 mg/mL IM Susp) 1 Milliliter Intramuscular every 3 months. oxybutynin (oxybutynin 5 mg Tab) 1 Tablets By Mouth 2 times a day for 30 Days. Refills: 1. sumatriptan (SUMAtriptan 100 mg Tab) 1 Tablets By Mouth every day as needed Headache. tamsulosin (Flomax 0.4 mg Cap) 1 Capsules By Mouth every day. Refills: 0. topiramate (topiramate 25 mg Tab) 1 Tablets By Mouth 2 times a day. Comment: [facility] Main OR PACU I Recordon 05-20 Main OR PACU I Record PACU Phase I Docum ent Type FT Summary Primary Physician: Viral CLAROS MD Finalized Date/Time: 06/13/23 12:55:58 Pt. Name: SUNSHINE RYDER Jarocho EricB./Sex: 2000 Female Med Rec #: [id number] Physician: Viral CLAROS MD Financial #: [id number] Pt. Type: A Room/Bed: [facility] Admit/Disch: 06/13/23 09:25:53 - Institution: Case Times PACU I FT [...] to medications Entry 1 In PACU I 06/13/23 12:17:00 Discharge from PACU 06/13/23 12:47:00 I Outcomes Met? Yes Last Modified By: Merary Ludwig RN 06/13/23 12:55:40 Post-Care Text: The patient demonstrates knowledge of [...] PACU I FT Entry 1 Start Time 06/13/23 12:17:00 Stop Time 06/13/23 12:47:00 Acuity Level Acuity Level I Last Modified By: Merary Ludwig RN 06/13/23 12:55:54 Finalized By: Merary Ludwig RN Document Signatures Signed By: Merary Ludwig RN 06/13/23 12:55 [facility] Main OR PACU II Recordon Main OR PACU II Record PACU Phase II Document Type FT Summary Primary Physician: Viral CLAROS MD Finalized Date/Time: 06/13/23 14:32:23 Pt. Name: SUNSHINE RYDER./Sex: 2000 Female Med Rec #: [id number] Physician: Viral CLAROS MD Financial #: [id number] Pt. Type: A Room/Bed: [place] [address] Admit/Disch: 06/13/23 09:25:53 - Institution: Case Times PACU II FT [...] to medications Entry 1 In PACU II 06/13/23 12:45:00 Discharge from PACU 06/13/23 14:20:00 II Outcomes Met? Yes Last Modified By: Jill Ventura RN 06/13/23 14:32:21 Post-Care Text: The patient demonstrates knowledge of [...] administered during the perioperative period Finalized By: Jill Ventura RN Document Signatures Signed By: Jill Ventura RN 06/13/23 14:32 [facility] Main OR Preoperative Recordo n 06-13-2023 Main OR Preoperative Record PreOp Document Type FT Summary Primary Physician: Viral CLAROS MD Finalized Date/Time: 06/13/23 11:44:36 Pt. Name: SUNSHINE RYDER/Sex: 2000 Female Med Rec #: [id number] Physician: Viral CLAROS MD Financial #: [id number] Pt. Type: A Room/Bed: [facility] Admit/Disch: 06/13/23 09:25:53 - Institution: Case Times PreOp FT Pre-Care Text: Verifies consent for planned procedure, identifies individual values and wishes concerning care, includes family members in perioperative teaching Entry 1 Patient Times. In Pre Surgery 06/13/23 09:40:00 Out Pre Surgery 06/13/23 11:35:00 Outcomes Met? Yes Last Modified By: Glenny Monsivais RN 06/13/23 11:44:21 Post-Care Text: The patient participates in decisions affecting his or her perioperative plan of care Finalized By: Glenny Monsivais RN Document Signatures Signed By: Glenny Monsivais RN 06/13/23 11:44 [facility] Monitor Recordon 06-13-2023 Monitor Record [id number]. 00TIFF [facility] Monitor Record [id number]. 00TIFF [facility] Operative Reporton Operative Report Patient: SUNSHINE RYDER Age: 23 years Sex: Female : 2000 Associated Diagnoses: None Author: Viral CLAROS MD Postoperative Information Date/ Time: 06/13/2023 12:20:00 Postoperative Diagnosis: Left renal calculus Status post cystoscopy, left stent, and ESWL Incidental finding left mid ureteral calculus. Performed by: Viral Claros MD. Findings: Procedure: Cystoscopy Left ureteral stent removal Left ureteroscopy/nephrosco py Holmium laser ablation and basket extraction left renal calculi Basket extraction left ureteral calculus Anesthesia: General, LMA, 2% Xylocaine jelly per urethra Indications: This is a 23-year-old female status post cystoscopy and a left stent and ESWL of left renal calculus. She still has fragments in the left kidney. She initially was having significant difficulties handling the left stent but these symptoms have dissipated. Preoperative KUB again demonstrates continued fragments in the left lower pole and I have continued to recommend cystoscopy and a ureteroscopic and nephroscopic approach to remove remaining fragments with or without the possibility of laser lithotripsy. She understands that and wants to proceed. She understands the risk of bleeding, infection, injury to ureter, need for possible stent replacement, as well as the risk of anesthesia itself. She wants to proceed and she did receive preoperative antibiotics and she does have sequential compression devices in place and functional bilateral extremities throughout the case. Procedure: The patient was brought back to the operating room and a timeout was performed. All are in agreement with the operative plan. She is identified appropriately. After the successful induction of general anesthesia she is placed in a modified dorsolithotomy position and prepped in usual fashion Betadine solution. She is draped appropriately. 2% Xylocaine jelly is placed per urethra and a well-lubricated 22 Burkinan is urethroscope with 30 degree lens then passed into the bladder without difficulty. Panendoscopy reveals a stent coming from the left ureteral orifice. No tumors or stones or diverticuli. A point 035 guidewire was then negotiated alongside the stent up into the kidney. The existing stent was then grasped with an alligator forceps, removed, and discarded. With the safety wire left in place the cystoscope was removed. The access sheath was then passed up the right ureter to the level of the ureteropelvic junction and the inner trocar portion was removed. Flexible digital ureteroscope was then passed up the access sheath up into the kidney. Tedious endoscopy of the entire kidney was performed. A couple fragments were basket extracted from the upper pole calyx. The majority of the fragments reside in the left lower pole. Through a fairly tedious procedure most of these fragments were basket extracted but the larger ones would not come through the sheath. Therefore holmium laser was utilized to break these into 3 to 4 pieces. I utilized about 8 W of power. Basket extraction of the remaining fragments was then performed. Reevaluation of the entire kidney demonstrates no obvious calculi. It does appear though that she is beginning to make more stones at the collecting ducts of some of the middle pole calyces indicating that she is an active stone former. I then performed endoscopy down the entire ureter and incidentally found a fairly large stone in the mid ureter which was not seen on the fluoroscopic views. This was basket extracted and sent to pathology for evaluation with the rest of the fragments. I did not feel that a ureteral stent replacement was indicated. Therefore the bladder was emptied, scope removed, and the procedure was terminated. All stone fragments sent to pathology for evaluation. She is transferred to the [facility] and then back to PACU in satisfactory condition, stable vital signs. Plan to be for discharge home with plans to follow-up in the office in about 6 months with a KUB. I discussed with her boyfriend the possibility of metabolic workup and she will call the office if she wants that to proceed. He was in agreement with the plan. I will send a couple pain medications to her pharmacy as well as some antibiotic coverage.. Estimated Blood Loss: 1 ml. Complications: None. Anesthesia type: General. [facility] Comment on above: Result Comment: Elec tronically Signed By: Viral CLAROS MD\.br\Date and Time Signed: 06/13/23 12:25 EDT Outpatient Surgery Discharge Instructionon 06-13-2023 Outpatient Surgery Discharge Instruction [place] [id number] Patient Discharge Instructions PERSON INFORMATION Name: SUNSHINE RYDER Date of : 2000 Current Date: 06/13/2023 12:27:39 PHYSICIANS Admitting Physician: Viral CLAROS MD Discharge Diagnosis: SUNSHINE RYDER has been [...] THE NEAREST EMERGENCY ROOM OR CALL 911 IBRITNI KELSEY D, have received the attached patient education materials/instructions and have verbalized understanding: May we do a follow up call? Yes No I was present when discharge instructions were given Patient Signature Date Clinican/Nurse Signature ___ Date Follow up: With: Address: When: Viral CLAROS [address], [address], [facility] [address] [place] [address] Business (1) Comments: As we discussed, my plan was to not place a stent but I felt that 1 was needed for a temporary timeframe. You can actually remove this by removing the tape and pulling on the thread. The stent should be then removed without problem. I like to see her back in about 6 months or so with an abdominal x-ray prior. My office should arrange for an order to be sent to what ever facility you would like prior to that visit. I did send a prescription for antibiotics to your pharmacy. Pharmacy Information: Other: [facility] You may receive a survey from Kimberlee Hopper asking you to rate your care experience. Your feedback is important and will help us understand what we do well and how we can improve the quality of care we provide to you, your loved ones and our community. It?s an honor to serve you. Thank you for choosing [facility] HERE ARE THE MEDICATION CHANGES THAT OCCURRED DURING YOUR HOSPITAL STAY New Medications [facility]/pharmacy #[id number], [address], [place] [id number], [phone] acetaminophen-hydrocod one (acetaminophen-hydroco done 325 mg-5 mg oral tablet) 1 Tablets By Mouth every 4 hours as needed Pain for 2 Days. Refills: 0. ciprofloxacin (Cipro 500 mg Tab) 1 Tablets By Mouth 2 times a day. Refills: 0. Medications to Continue with No Changes Other Medications acetaminophen (Tylenol 325 mg Tab) 2 Tablets By Mouth every 4 hours. amphetamine-dextroamph etamine (Adderall) 25 Milligram By Mouth 2 times a day. carvedilol (carvedilol 6.25 mg Tab) famotidine (famotidine 20 mg Tab) 1 Tablets By Mouth every day. medroxyPROGESTERone (medroxyPROGESTERone 150 mg/mL IM Susp) 1 Milliliter Intramuscular every 3 months. oxybutynin (oxybutynin 5 mg Tab) 1 Tablets By Mouth 2 times a day for 30 Days. Refills: 1. sumatriptan (SUMAtriptan 100 mg Tab) 1 Tablets By Mouth every day as needed Headache. tamsulosin (Flomax 0.4 mg Cap) 1 Capsules By Mouth every day. Refills: 0. topiramate (topiramate 25 mg Tab) 1 Tablets By Mouth 2 times a day. PATIENT EDUCATION INFORMATION Instructions: [facility] [place], [place] Dr. Viral Ramsay Post-operative Instructions for Ureteroscopy, Laser Lithotripsy, Stone Extraction and Stent Placement There are no incisions or dressings to be concerned with, as the procedure was performed inside the urinary system. For 24 hours after surgery: ? No driving or operating machinery ? Do not make important decisions ? Do not consume alcohol, sleeping pills Stent Placement You may have a stent which spans the distance between your bladder and your kidney, allowing urine to pass through. It prevents blockage from swelling, kidney stones in ureter (tube connecting the kidney to the bladder), or scars. The presence of the stent may cause: ? Back or side pain, especially with urination ? Frequent or urgent urination ? Bladder pressure or pain ? Blood in urine You may pass stone debris or small blood clots, which is expected. Drinking plenty of water to dilute the urine may help. If there is a thread coming out of urinary channel, be careful not to accidently pull on this, as it is attached to the stent. The stent will (more content not included)... [facility] Patient Education - Texton 0 06-13-2023 Patient Education - Text [facility] [place], [place] Dr. Viral Ramsay Post-operative Instructions for Ureteroscopy, Laser Lithotripsy, Stone Extraction and Stent Placement There are no incisions or dressings to be concerned with, as the procedure was performed inside the urinary system. For 24 hours after surgery: ? No driving or operating machinery ? Do not make important decisions ? Do not consume alcohol, sleeping pills Stent Placement You may have a stent which spans the distance between your bladder and your kidney, allowing urine to pass through. It prevents blockage from swelling, kidney stones in ureter (tube connecting the kidney to the bladder), or scars. The presence of the stent may cause: ? Back or side pain, especially with urination ? Frequent or urgent urination ? Bladder pressure or pain ? Blood in urine You may pass stone debris or small blood clots, which is expected. Drinking plenty of water to dilute the urine may help. If there is a thread coming out of urinary channel, be careful not to accidently pull on this, as it is attached to the stent. The stent will most likely be removed in the office during a short procedure in which a scope is placed into the bladder, the stent is grasped and removed. At other times the stent may need to stay longer, either in preparation for other procedures or for other reasons. If it is to remain senior living, however, changes of the stent are required (about every 3-4 months). Diet You may resume your normal diet, but you may want to start slowly and avoid spicy food, caffeine, carbonated beverages and alcohol, especially if you have a stent. Your diet and fluid intake may make irritation from the stent worse. Activity You may resume your normal activities, although you should take it easy on the day of the procedure. Minimizing activity may decrease the back discomfort and irritation from the stent, if present. Medications ? You may resume your home medications unless instructed otherwise. ? Hold aspirin, ibuprofen, Coumadin (warfarin) and other blood thinners until your office visit (we will discuss when to resume these medications) ? Take your prescribed medications as directed, including your antibiotics. You may also be given a prescription for pain medicine or medicines to help with the bladder irritation from stent, if present. Things to watch for which would require an Emergency Room Visit (or call 911) (This is not a complete list) ? Fever over 101.5 degrees, with or without chills ? Severe bleeding ? Severe drug reactions with itching, hives, rash, or severe flank pain ? Tenderness or swelling or the calves, chest pain, or shortness of breath Please call the office to arrange for your post-operative appointment (with XRAY) [phone] [facility] SEROLOGYOrdered By: Pati Tuttle on 06-13-2023 HCG.beta subunit (U) [Moles/Vol] Negative Normal [facility] Man Sero U BetaHcg Qualon 06-13-2023 HCG.beta subunit (U) [Moles/Vol] Negative [facility] Comment on above: Performed By: #### 2 [id number] ####[facility] [id number] [place] [address] XR Abdomen 1 Viewon 06-13-19 24 XR Abdomen 1 View Exam Date/Time: 06/13/2023 09:45 EDT Reason for Exam: Kidney stone Report IMPRESSION: Left ureteral stent. Probable left renal calculus or calculi. EXAMINATION/TECHNIQUE: XR Abdomen 1 View HISTORY: Presurgical evaluation. Kidney stones. COMPARISON: 05/20/2023. RESULT: Left ureteral stent, grossly unchanged. Probable small left renal calculus or adjacent calculi measuring up to 4 mm, grossly unchanged. No distinct calcific is radiographically along the course of the stent. No distinct calcifications radiographically projecting over the right kidney or course of the ureter. Nonspecific nondilated bowel gas pattern. Lung bases unremarkable. No acute osseous findings. No other significant abnormality. Ordering Provider: Viral CLAROS FINAL REPORT Dictated: 06/13/2023 11:04 am Viraj Jordan MD Signed (Electronic Signature): 06/13/2023 11:04 am Signed by: Viraj Jordan MD Transcribed by: W[place]MER Technologist: ESTELLA Technical Comments Radiation Dose: Ka,r in mGy = 0 DAP = 0 [facility] Ambulatory Visit Summaryon 0 06-05-2023 Ambulatory Visit Summary SUNSHINE RYDER :2000 Visit Date:06/05/2023 Ambulatory Visit Instructions Your Diagnosis Kidney stone Your Care Team Attending Physician - SHAWN COOK, Viral Catalan Primary Care Physician - GAYE DILL MD This Is Your Medications List Contact prescribing physician if questions or concerns acetaminophen (Tylenol 325 mg Tab) amphetamine-dextroamph etamine (Adderall) carvedilol (carvedilol 6.25 mg Tab) famotidine (famotidine 20 mg Tab) medroxyPROGESTERone (medroxyPROGESTERone 150 mg/mL IM Susp) metoprolol (metoprolol 25 mg ER Tab) oxybutynin (oxybutynin 5 mg Tab) tamsulosin (Flomax 0.4 mg Cap) Procedures Performed ESWL of kidney (04/18/2023), Lithotripsy, Tonsillectomy, Tooth. Discharge Vitals Height 160 cm Height 63 in Weight 94.8 kg Weight 208.56 lb BMI 37.03 What to do next Scheduled Follow-Up Appointments 2023 11:15 AM EDT Where: [facility] You Need to Schedule the Following Appointments Follow Up with SHAWN COOK, AAMIR Taylor When: Where: [address] [address]- Medications What How Much When Instructions Unchanged acetaminophen (Tylenol 325 mg Tab) 2 Tablets By Mouth Every 4 hours Contact prescribing physician if questions or concerns Unchanged amphetamine-dextroamph etamine (Adderall) 25 Milligram By Mouth 2 times a day Contact prescribing physician if questions or concerns Unchanged carvedilol (carvedilol 6.25 mg Tab) Contact prescribing physician if questions or concerns Unchanged famotidine (famotidine 20 mg Tab) 1 Tablets By Mouth Every day Contact prescribing physician if questions or concerns Unchanged medroxyPROGESTERone (medroxyPROGESTERone 150 mg/ mL IM Susp) 1 Milliliter Intramuscular Every 3 months Contact prescribing physician if questions or concerns Unchanged metoprolol (metoprolol 25 mg ER Tab) 1 Tablets By Mouth Every day Contact prescribing physician if questions or concerns Unchanged oxybutynin (oxybutynin 5 mg Tab) 1 Tablets By Mouth 2 times a day Duration: 30 Days Contact prescribing physician if questions or concerns Unchanged tamsulosin (Flomax 0.4 mg Cap) 1 Capsules By Mouth Every day Contact prescribing physician if questions or concerns Allergies codeine (Hives, Rash, Hyperactivity) Problems Ongoing - Any problem that you are currently receiving treatment for. Abdominal pain Flank pain Kidney stone Smoker Historical - Any problem that you are no longer receiving treatment for. Acid reflux ADHD - Attention deficit disorder with hyperactivity Hypertension Kidney stone Migraine Stent placement Patient Survey You may receive a survey via text or e-mail asking about your office visit. Please share your experience with us by completing your survey. We appreciate your feedback and thank you for choosing us for your care. Education Materials Lithotripsy Lithotripsy is a treatment that can help break up kidney stones that are too large to pass on their own. This is a nonsurgical procedure that crushes a kidney stone with shock waves. These shock waves pass through your body and focus on the kidney stone. They cause the kidney stone to break up into smaller pieces while it is still in the urinary tract. The smaller pieces of stone can pass more easily out of your body in the urine. Tell a health care provider about: ? Any allergies you have. ? All medicines you are taking, including vitamins, herbs, eye drops, creams, and gkok-cqy-tqmiadh medicines. ? Any problems you or family members have had with anesthetic medicines. ? Any blood disorders you have. ? Any surgeries you have had. ? Any medical conditions you have. ? Whether you are or may be . What are the risks? Generally, this is a safe procedure. However, problems may occur, including: ? Infection. ? Bleeding from the kidney. ? Bruising of the kidney or skin. ? Scarring of the kidney, which can lead to: ? Increased blood pressure. ? Poor kidney function. ? Return (recurrence) of kidney stones. ? Damage to other structures or organs, such as the liver, colon, spleen, or pancreas. ? Blockage (obstruction) of the tube that carries urine from the kidney to the bladder (ureter). ? Failure of the kidney stone to break into pieces (fragments). What happens before the procedure? Staying hydrated Follow instructions from your health care provider about hydration, which may include: ? Up to 2 hours before the procedure ? you may continue to drink clear liquids, such as water, clear fruit juice, black coffee, and plain tea. Eating and drinking restrictions Follow instructions from your health care provider about eating and drinking, which may include: ? 8 hours before the procedure ? stop eating heavy meals or foods, such as meat, fried foods, or fatty foods (more content not included)... Normal [facility] Patient Educationon 06-05-19 Patient Education Nephrology Lithotripsy Lithotripsy is a treatment that can help break up kidney stones that are too large to pass on their own. This is a nonsurgical procedure that crushes a kidney stone with shock waves. These shock waves pass through your body and focus on the kidney stone. They cause the kidney stone to break up into smaller pieces while it is still in the urinary tract. The smaller pieces of stone can pass more easily out of your body in the urine. Tell a health care provider about: ? Any allergies you have. ? All medicines you are taking, including vitamins, herbs, eye drops, creams, and hjxo-lgi-sacmyjy medicines. ? Any problems you or family members have had with anesthetic medicines. ? Any blood disorders you have. ? Any surgeries you have had. ? Any medical conditions you have. ? Whether you are or may be . What are the risks? Generally, this is a safe procedure. However, problems may occur, including: ? Infection. ? Bleeding from the kidney. ? Bruising of the kidney or skin. ? Scarring of the kidney, which can lead to: ? Increased blood pressure. ? Poor kidney function. ? Return (recurrence) of kidney stones. ? Damage to other structures or organs, such as the liver, colon, spleen, or pancreas. ? Blockage (obstruction) of the tube that carries urine from the kidney to the bladder (ureter). ? Failure of the kidney stone to break into pieces (fragments). What happens before the procedure? Staying hydrated Follow instructions from your health care provider about hydration, which may include: ? Up to 2 hours before the procedure ? you may continue to drink clear liquids, such as water, clear fruit juice, black coffee, and plain tea. Eating and drinking restrictions Follow instructions from your health care provider about eating and drinking, which may include: ? 8 hours before the procedure ? stop eating heavy meals or foods, such as meat, fried foods, or fatty foods. ? 6 hours before the procedure ? stop eating light meals or foods, such as toast or cereal. ? 6 hours before the procedure ? stop drinking milk or drinks that contain milk. ? 2 hours before the procedure ? stop drinking clear liquids. Medicines Ask your health care provider about: ? Changing or stopping your regular medicines. This is especially important if you are taking diabetes medicines or blood thinners. ? Taking medicines such as aspirin and ibuprofen. These medicines can thin your blood. Do not take these medicines unless your health care provider tells you to take them. ? Taking hhxz-hmv-rtpfkpk medicines, vitamins, herbs, and supplements. Tests You may have tests, such as: ? Blood tests. ? Urine tests. ? Imaging tests, such as a CT scan. General instructions ? Plan to have someone take you home from the hospital or clinic. ? If you will be going home right after the procedure, plan to have someone with you for 24 hours. ? Ask your health care provider what steps will be taken to help prevent infection. These may include washing skin with a germ-killing soap. What happens during the procedure? ? An IV will be inserted into one of your veins. ? You will be given one or more of the following: ? A medicine to help you relax (sedative). ? A medicine to make you fall asleep (general anesthetic). ? A water-filled cushion may be placed behind your kidney or on your abdomen. In some cases, you may be placed in a tub of lukewarm water. ? Your body will be positioned in a way that makes it easy to target the kidney stone. ? An X-ray or ultrasound exam will be done to locate your stone. ? Shock waves will be aimed at the stone. If you are awake, you may feel a tapping sensation as the shock waves pass through your body. ? A flexible tube with holes in it (stent) may be placed in the ureter. This will help keep urine flowing from the kidney if the fragments of the stone have been blocking the ureter. The procedure may vary among health care providers and hospitals. What happens after the procedure? ? You may have an X-ray to see whether the procedure was able to break up the kidney stone and how much of the stone has passed. If large stone fragments remain after treatment, you may need to have a second procedure at a later time. ? Your blood pressure, heart rate, breathing rate, and blood oxygen level will be monitored until you leave the hospital or clinic. ? You may be given antibiotics or pain medicine as needed. ? If a stent was placed in your ureter during surgery, it may stay in place for a few weeks. ? You may need to strain your urine to collect pieces of the kidney stone for testing. ? You will need to drink plenty of water. ? If you were given a sedative during the procedure, it can affect you for several hours. Do not drive or operate machinery until your health care provider says that it is safe. Summary (more content not included)... Normal [facility] Urology Office/Clinic Noteon 06-05-2023 Urology Office/Clinic Note Chief Complaint follow up HPI Staff 23 year old female here for questions she is scheduled for uretero-nephroscopy , possible laser and basket of remaining fragments on 06/12 and stated that she wanted to talk to [facility] before she has this done, states she needs to move surgery anyhow due to work. pt. states that she has been having constant UTI symptoms and blood since since was placed, symptoms are getting better. History of Present Illness Tests reviewed: reviewed UA, KUB, ROSEMARIE, CT. I have reviewed the previous health record information and history for this patient from Dr. Claros. I have reviewed and verified the staff HPI to be accurate for this encounter. There have been no associated fever, chills, flank pain, or blood in the urine. Denies any urinary infections since last encounter. Review of Systems ROS - Provider Constitutional: denies weight loss, denies hot flashes. Eyes: denies eye problems. Gastrointestinal: denies nausea, denies vomiting. Cardiovascular: denies chest pain or angina. Integumentary: no dryness Musculoskeletal: denies musculoskeletal symptoms. ENMT: denies otolaryngeal symptoms. Respiratory: no shortness of breath. Heme/Lymph: denies easy bleeding tendency, denies easy bruising tendency. Psychiatric: no confusion, no anxiety. Genitourinary: See HPI. Physical Exam Vitals & Measurements HT: 63 in HT: 160 cm WT: 94.8 kg WT: 208.56 lb BMI: 37.03 General Appearance: alert , no acute distress, well nourished, well developed female. Genitourinary: bladder nonpalpable, moderate flank pain. stent placed. Assessment/Plan Portions of this record may have been created with voice recognition artificial intelligence software, specifically [employer], [employer] and or [employer]. Substitutions may have occurred due to the inherent limitations of voice recognition and artificial intelligence software. 1. Kidney stone (N20.0: Calculus of kidney) Pt was seen at [facility] on 01/22/23 due to left sided abdominal pain. CT AP w/o Con 01/22/23 - bilateral nonobstructing punctate stones, as well as stones measuring 5mm and 8mm withing the lower pole of the Lt kidney. KUB 03/19/23 - multiple Lt renal stones, largest measuring up to 9mm KUB 04/18/23 shows calcifications on the left measuring up to 12 mm. S/p cysto, L stent, L ESWL 04/18/23. KUB 04/26/23 shows multiple stone fragments within inferior pole of the left kidney. Stent placed. KUB 05/20/23 Left ureteral stent with ends looped in the region of the left renal pelvis and urinary bladder. No distinct calcifications radiographically projecting along the course of the stent. Possible small left renal calculi measuring up to 4 mm, or bowel debris. No distinct calcifications projecting over the right kidney or expected course of the right ureter. Renal US 05/20/23 shows left partially imaged ureteral stent. CT AP wo IV con 05/17/23 Nonobstructing calculi measuring 0.3 cm in the superior pole left kidney and 0.8 cm in the inferior pole of the left kidney. Punctate nonobstructing right interpolar renal calculus. Pt presented to [facility] 05/20/23 with hematuria. Reports gross hematuria and UTI sx. UA today shows large blood and small leuks. Pt understands this is from the stent. Pt is currently scheduled for uretero-nephroscopy, possible laser and basket of remaining fragments on 06/13/23. Explained to pt the importance of keeping procedure given ureteral stent in place. Will proceed. Follow-up With When Contact Information SHAWN COOK, Viral P, URL [address] [place] [address]- Additional Instructions: Proceed with stone procedure Patient Education Lithotripsy Judy Edwards, personally scribed for Dr. Claros on 06/05/2023 08:46:56. . Documentation recorded by the scribJudy hatch, accurately reflects the services(s) I performed and decisions made by me. Authenticated by Dr. Claros on 06/05/2023 08:49:52. Problem List/Past Medical History Ongoing Abdominal pain Flank pain Kidney stone Smoker Historical Acid reflux ADHD - Attention deficit disorder with hyperactivity Hypertension Kidney stone Migraine Stent placement Procedure/Surgical History ESWL of kidney (04/18/2023), Lithotripsy, Tonsillectomy, Tooth. Medications Adderall, 25 mg, Oral, BID carvedilol 6.25 mg Tab famotidine 20 mg Tab, 20 mg= 1 tab(s), Oral, Daily Flomax 0.4 mg Cap, 0.4 mg= 1 cap(s), Oral, Daily medroxyPROGESTERone 150 mg/mL IM Susp, 150 mg= 1 mL, IntraMuscular, q3mo metoprolol 25 mg ER Tab, 25 mg= 1 tab(s), Oral, Daily oxybutynin 5 mg Tab, 5 mg= 1 tab(s), Oral, BID, 1 refills Tylenol 325 mg Tab, 2 tab(s), Oral, q4hr Allergies codeine (Hives, Rash, Hyperactivity) Social History Alcohol - Denies Alcohol Use, 12/23/2019 Substance Abuse - High Risk, 03/29/2023 Current, Marijuana, Several times per day, (more content not included)... Normal [facility] Comment on above: Result Comment: Elec tronically Signed By: Viral CLAROS MD\.br\Date and Time Signed: 06/05/23 08:50 EDT\.br\Electronically Co-Signed By: Judy Daily.br\Date and Time Co-Signed: 06/05/23 08:47 EDT Office Visiton 05-28-2023 Follow-up visit [id number] Ana Luisa Ryder 2000 F Date Provider Department Center 05/28/2023 3848-VELMA CHAND Family History Problem Relation Age of Onset Hypertension Mother Heart attack Maternal Grandmother Heart attack Maternal Grandfather Stroke Maternal Grandfather Family Status - Relation Status Age at Mother Maternal Grandmother Maternal Grandfather Level of Service:70873 MO OFFICE/OUTPATIENT ESTABLISHED MOD MDM 30 MIN Reason for Visit and Comments: Follow-up [760140] - Last saw Camilo in 2021 Normal [facility] Orders Onlyon 05-28-2023 Orders Only [id number] Ana Luisa Ryder 2000 F Date Provider Department Center 05/28/2023 APRIL COSME Mariela [facility] Family History Problem Relation Age of Onset Hypertension Mother Heart attack Maternal Grandmother Heart attack Maternal Grandfather Stroke Maternal Grandfather Family Status - Relation Status Age at Mother Maternal Grandmother Maternal Grandfather Normal [facility] C Urineon 05-22-2023 Bacteria identified Cx Nom (U) Microbiology PROCEDURE: Urine Culture [R1] SOURCE: U CleanCatch BODY SITE: COLLECTED DATE/TIME: 05/20/2023 11:54 EDT RECEIVED DATE/TIME: 05/20/2023 13:37 EDT START DATE/TIME: 05/20/2023 13:37 EDT FREE TEXT SOURCE: Raf Adler, Lawson Carbone M.D., Lawson Pryor FINAL REPORTS Final Report [] Verified Date/Time: 05/22/2023 11:57 EDT No growth at 2 days. Performing Locations R1: This test was performed at: [facility], [address] [place] [address], [facility] , , [facility] Comment on above: Performed By: #### 2 [id number], [id number], [id number] #### [facility] [address] [place] [address] ED Note-Physicianon 05-21-19 ED Note-Physician [id number] 0TIFF [facility] ED Note-Physician [id number]. 00TIFF [facility] BMPon 05-20-2023 Anion gap [Moles/Vol] 13 mmol/L Normal 6-16 [facility] Comment on above: Performed By: #### 2 215354, [id number], 08091980, [id number] ####[facility] [address] [place] [address] Calcium [Mass/Vol] 9.2 mg/dL Normal 8.9-11.1 [facility] Comment on above: Performed By: #### 2 937993, 84076391, 59915783, 7139502 ####[facility] [address] [place] [address] Chloride [Moles/Vol] 109 mmol/L Normal 101-111 [facility] Comment on above: Performed By: #### 2 287315, [id number], 98364317, 7020400 ####[facility] [address] [place] [address] CO2 [Moles/Vol] 19 mmol/L Low 21-31 [facility] Comment on above: Performed By: #### 2 079533, 69924730, 62471654, 7091634 ####[facility] [address] [place] [address] Creatinine [Mass/Vol] 0.9 mg/dL Normal 0.5-1.3 [facility] Comment on above: Performed By: #### 2 337191, 45319907, 77706145, 2246225 ####[facility] [address] [facility] [place] [address] Glucose [Mass/Vol] 114 mg/dL Normal 55-199 [facility] Comment on above: Performed By: #### 2 580850, 05583770, 16829031, 2978945 ####[facility] [address] [place] [address] Potassium [Moles/Vol] 4.0 mmol/L Normal 3.5-5.3 [facility] Comment on above: Performed By: #### 2 783997, 93851175, 77537335, 0412817 ####[facility] [address] [place] [address] Sodium [Moles/Vol] 137 mmol/L Normal 135-145 [facility] Comment on above: Performed By: #### 2 322953, 72301909, 18149640, 0203236 ####[facility] [address] [place] [address] Urea nitrogen [Mass/Vol] 16 mg/dL Normal 5-21 [facility] Comment on above: Performed By: #### 2 131331, 31233737, 62756589, 4310565 ####[address] [address] Urea nitrogen/Creatinine [Mass ratio] 18 No Units Normal 10-20 [facility] Comment on above: Performed By: #### 2 128777, 84139970, 95763150, 0243331 ####[address] [address] CBC w/ Auto Diffon 4 Basophils/100 WBC (Bld) 1.0 % Normal 0.0-2.0 [facility] Comment on above: Performed By: #### 2 181346, 14200536, 36414033, 8650616 ####[address] [address] Basophils/Leukocytes Auto (Bld) [Pure # fraction] 0.1 E9/L Normal 0.0-0.2 [facility] Comment on above: Performed By: #### 2 834668, 28876420, 86022813, 1315381 ####[address] [address] Eosinophils (Bld) [#/Vol] 0.3 E9/L Normal 0.0-0.5 [facility] Comment on above: Performed By: #### 2 172185, 14462656, 10990177, 8757020 ####[address] [address] Eosinophils/100 WBC (Bld) 2.2 % Normal 0.0-8.0 [facility] Comment on above: Performed By: #### 2 025730, 77297804, 98370344, 3924456 ####[address] [address] Erythrocyte distribution width (RBC) [Ratio] 13.1 % Normal 10.9-14.2 [facility] Comment on above: Performed By: #### 2 874337, 64870946, 06326889, 3884993 ####[place] [address]2357 Hematocrit (Bld) [Volume fraction] 41.5 % Normal 34.0-46.0 [facility] Comment on above: Performed By: #### 2 008308, 26174487, 24472129, 6144712 ####[place] [address]2357 Hemoglobin (Bld) [Mass/Vol] 14.0 g/dL Normal 12.0-16.0 [facility] Comment on above: Performed By: #### 2 702123, 77442749, 49881381, 8559199 ####[place] [address]2357 Lymphocytes (Bld) [#/Vol] 2.4 E9/L Normal 1.0-4.0 [facility] Comment on above: Performed By: #### 2 200852, 67455426, 82236912, 5955837 ####[place] [address]2357 Lymphocytes/100 WBC (Bld) 20.0 % Normal 14.0-50.0 [facility] Comment on above: Performed By: #### 2 745439, 61016977, 51665013, 6035265 ####[address] [address] MCH (RBC) [Entitic mass] 30.2 pg Normal 27.0-34.0 [facility] Comment on above: Performed By: #### 2 096131, 00403358, 85559328, 7518872 ####[address] [address] MCHC (RBC) [Mass/Vol] 33.9 g/dL Normal 31.4-36.0 [facility] Comment on above: Performed By: #### 2 258540, 46595845, 65307802, 1026460 ####[facility] [address] [place] [address] MCV (RBC) [Entitic vol] 89.1 fL Normal 80.0-100.0 [facility] Comment on above: Performed By: #### 2 502707, 38531028, 97694699, 2264527 ####[address] [address] Monocytes (Bld) [#/Vol] 0.8 E9/L Normal 0.2-1.0 [facility] Comment on above: Performed By: #### 2 180336, 64364009, 81889847, 3955047 ####[address] [address] Neutrophils (Bld) [#/Vol] 8.3 E9/L High 2.0-7.5 [facility] Comment on above: Performed By: #### 2 272232, 85865830, 06584731, 6597147 ####[address] [address] Neutrophils/100 WBC (Bld) 70.2 % Normal 36.0-75.0 [facility] Comment on above: Performed By: #### 2 112285, 47007818, 55363088, 7795327 ####[address] [address] Platelet mean volume (Bld) [Entitic vol] 8.8 fL Normal 6.4-10.8 [facility] Comment on above: Performed By: #### 2 026262, 25612405, 17126770, 9996415 ####[address] [address] Platelets (Bld) [#/Vol] 259.0 E9/L Normal 150.0-500.0 [facility] Comment on above: Performed By: #### 2 150176, 17272627, 54620891, 3356888 ####[address] [address] RBC (Bld) [#/Vol] 4.7 E12/L Normal 4.3-5.9 [facility] Comment on above: Performed By: #### 2 661855, 29104206, 28673807, 8249402 ####[facility] [address] [place] [address] WBC corrected for nucl RBC Auto (Bld) [#/Vol] 11.7 E9/L High 4.0-11.0 [facility] Comment on above: Performed By: #### 2 337661, 30013184, 12838706, 7995432 ####[facility] [address] [place] [address] CHEMISTRYOrdered By: [employer] SYSTEM on 05-20-2023 Anion gap [Moles/Vol] 13 mmol/L Normal 6 - 16 mEq/L [facility] Calcium [Mass/Vol] 9.2 mg/dL Normal 8.9 - 11. 1 mg/dL [facility] Chloride [Moles/Vol] 109 mmol/L Normal 101 - 1 11 mmol/L [facility] CO2 [Moles/Vol] 19 mmol/L Low 21 - 31 mmol/L [facility] Creatinine [Mass/Vol] 0.9 mg/dL Normal 0.5 - 1.3 mg/dL [facility] eGFR 93 mL/min/1.73 m2 Normal >=59mL/min / 1.73 m2 [facility] Glucose [Mass/Vol] 114 mg/dL Normal 55 - 199 mg/dL [facility] Potassium [Moles/Vol] 4.0 mmol/L Normal 3.5 - 5.3 mmol/L [facility] Sodium [Moles/Vol] 137 mmol/L Normal 135 - 145 mmol/L [facility] Urea nitrogen [Mass/Vol] 16 mg/dL Normal 5 - 21 mg/dL [facility] Urea nitrogen/Creatinine [Mass ratio] 18 mg/mg Normal 10 - 20 [facility] COAGULATIONOrdered By: Darin Herron on 05-20-2023 aPTT Coag (PPP) [Time] 33.6 s Normal 25.1 - 36.5 second(s) [facility] Auto Co[facility] Comment on above: Interpretive Data: P arameter 15 days - 4 weeks 1 - 5 months 6 - 11 months 1 - 5 years 6 - 10 years 11 - 17 years PTT Mean: 35.4 (27.6-45.6) Mean: 33.5 (24.8-40.7) Mean: 32.4 (25.1-40.7) Mean: 31.6 (24.0-39.2) Mean: 31.6 (26.9-38.7) Mean: 31.0 (24.6-38.4) Pediatric Reference ranges were obtained from a study by osvaldo Medina alPamella prepared from 1437 samples obtained at 7 different centers using the same coagulation reagent and instrumentation as [facility]. Currently there are no coagulation studies available worldwide for children to 14 days, and no normal ranges. Heparin therapeutic range (represented by Anti-Factor Xa activity of 0.2 - 0.4 U/mL) corresponds to PTT of 56.6 - 109.0 sec. INR Coag (PPP) [Relative time] 1.08 {INR} Invalid Interpretation Code [facility] Comment on above: Interpretive Data: I NR results are specifically intended to assess patients stabilized on long-term Anticoagulation therapy suggested INR s Less Intensive Anticoagulation 2.0 3.0 Conventional Range 3.0 4.5 PT Coag (PPP) [Time] 12.1 s Normal 9.4 - 1 2.5 second(s) [facility] Comment on above: Interpretive Data: 1 5 days - 4 weeks 1 - 5 months 6 -11 months 1 5 years 6 10 years 11 -17 years Mean: 11.2 (9.5 12.6) Mean: 11.0 (9.7 12.8) Mean: 11.0 (9.8 13.0) Mean: 11.3 (9.9 13.4) Mean: 11.7 (10.0 14.6) Mean: 11.8 (10.0 - 14.1) Pediatric Reference ranges were obtained from a study by osvaldo Medina alPamella prepared from 1437 samples obtained at 7 different centers using the same coagulation reagent and instrumentation as [facility]. Currently there are no coagulation studies available worldwide for children to 14 days, and no normal ranges. Consent for Treatmenton 0 Consent for Treatment [id number] 0TIFF Normal [facility] Discharge Instructionson Discharge Instructions [id number]. 00TIFF Normal [facility] ED Clinical Summaryon 2023 ED Clinical Summary [place] [id number] ED Clinical Summary Person Information Name: SUNSHINE RYDER Cookie/[facility] Age: 23 Years : 2000 Sex: Female Language: Angolan PCP: GAYE DILL MD Marital Status: Single Visit Id: Visit Reason: Hematuria; Flank pain; STENT IN URITHRA- LOTS OF BLEEDING AND PAINFUL Speciality: Acuity: 3 Enc Type: Emergency Med Service: Emergency Arrival: 05/20/2023 11:32:16 Discharge: 05/20/2023 14:38:39 LOS: 000 03:06 Checkin: 05/20/2023 11:32:16 Checkout: 05/20/2023 14:38:39 Dispo Type: Home (Routine DC) EVENTS: Event Name Event Status Request Date/Time Start Date/Time Complete Date/Time Arrive Complete 05/20/2023 11:32:16 05/20/2023 11:32:16 05/20/2023 11:32:16 Document Home Meds Request 05/20/2023 11:32:16 Triage Complete 05/20/2023 11:32:16 05/20/2023 11:41:05 05/20/2023 11:41:05 Registration Complete 05/20/2023 11:36:12 05/20/2023 11:36:12 05/20/2023 11:36:12 Reg Complete Request 05/20/2023 11:36:12 Reg Bed Request Complete 05/20/2023 11:36:12 05/20/2023 11:36:12 05/20/2023 11:36:12 Bed Assign Complete 05/20/2023 11:42:05 05/20/2023 11:42:05 05/20/2023 11:42:05 Dr Exam Complete 05/20/2023 11:42:05 05/20/2023 11:48:07 05/20/2023 11:48:07 RN Exam Complete 05/20/2023 11:42:05 05/20/2023 11:52:08 05/20/2023 11:52:08 Registration Request 05/20/2023 11:48:07 Pending Labs Complete 05/20/2023 11:50:45 05/20/2023 12:35:57 Lab Complete 05/20/2023 11:50:45 05/20/2023 12:09:25 Urine Collect Complete 05/20/2023 11:50:45 05/20/2023 12:09:25 Fall Risk Request 05/20/2023 11:52:08 Meds Admin Complete 05/20/2023 12:00:09 05/20/2023 12:12:44 Pending Labs Complete 05/20/2023 12:00:09 05/20/2023 12:29:52 Lab Complete 05/20/2023 12:00:09 05/20/2023 12:29:52 US Complete 05/20/2023 12:00:09 05/20/2023 12:40:06 05/20/2023 13:11:17 X-Ray Complete 05/20/2023 12:00:09 05/20/2023 12:24:06 05/20/2023 12:37:50 Pending Labs Complete 05/20/2023 12:13:43 05/20/2023 12:13:43 05/20/2023 12:29:52 Lab Complete 05/20/2023 12:13:43 05/20/2023 12:13:43 05/20/2023 12:29:52 Pending Labs Complete 05/20/2023 12:14:53 05/20/2023 12:14:53 05/20/2023 12:14:54 Pending Labs Inlab 05/20/2023 12:35:58 05/20/2023 12:35:58 Lab Inlab 05/20/2023 12:35:58 05/20/2023 12:35:58 Wet Read Request 05/20/2023 12:37:50 Discharge Complete 05/20/2023 14:22:36 05/20/2023 14:38:45 05/20/2023 14:38:45 Transfer Complete 05/20/2023 14:38:45 05/20/2023 14:38:45 05/20/2023 14:38:45 ADDRESS: [address] [place] [id number] PHYS DOC NOTES: MEDICAL INFORMATION: Prescriptions Given: Medications to Continue with No Changes Other [...] Tab) 1 Tablets By Mouth every day. oxybutynin (oxybutynin 5 mg Tab) 1 Tablets By Mouth 2 times a day for 30 Days. Refills: 1. sulfamethoxazole-trime thoprim (Bactrim D.S. 800 mg-160 mg Tab) 1 Tablets By Mouth 2 times a day for 10 Days. Refills: 0. tamsulosin (Flomax 0.4 mg Cap) 1 Capsules By Mouth every day. Refills: 0. PATIENT EDUCATION INFORMATION: Instructions: Hematuria, Adult; Ureteral Stent Implantation, Care After; Flank Pain, Adult Follow up: With: Address: When: Viral CLAROS [address] [place] [address], [address] [place] [id number] Business (1) In 3 days 05/23/2023 Comments: Call Dr for diagnosis based follow up. Dr. Claros's office is going to call. Call the office if they do not call you in the next couple days. Continue taking Bactrim as prescribed. Return to the emergency room if your pain gets worse, fever or any new symptoms. With: Address: When: GAYE DILL [address] [place] [id number] Business (1) In 3 days DIAGNOSIS: 1:Flank pain; 2:Hematuria Normal [facility] ED Note-Physicianon 05-20-19 ED Note-Physician Basic Information Time Seen: Raf Adler, Lawson Pryor 05/20/2023 11:48 Chief Complaint pt presents w/ c/o L flank pain. pt states they have a ureter stent in place that was placed after lithotripsy pt c/o blood in urine. History of Present Illness The patient is a 23-year-old female past medical history of kidney stone who presented to the emergency room with left flank pain. The patient states the pain has been present for past 2 weeks. She describes it as pressure. The patient states she had stent placed in on March with lithotripsy. Ever since she has been having blood in urine and the pain has been persistent ever since. She states she is scheduled for another lithotripsy with Dr. Claros on June 12. The patient denies any fever, denies any chills. She reports some burning with urination sometimes. The patient denies any nausea, denies any vomiting. She states she was seen at [facility] on Saturday and Saturday. She states she had a CAT scan on Saturday. She was given IV fluid on Saturday and told to come here. The patient denies any other associated symptoms. Review of Systems Additional ROS info: Except as noted in the above Review of Systems and in the History of Present Illness all other systems have been reviewed and are negative or noncontributory. Physical Exam Vitals & Measurements T: 36.6 ?C(Oral) HR: 70(Monitored) RR: 18 BP: 142/110 SpO2: 99% HT: 165 cm WT: 90.8 kg BMI: 33.35 General: alert, no acute distress Skin: warm, dry Head: no trauma, normocephalic Neck: Trachea midline, Eye: normal conjunctiva, sclera clear, PERRL, EOMI, vision unchanged ENMT: Oral mucosa moist, no pharyngeal erythema or exudate Cardiovascular: regular rate and rhythm, Respiratory: Lungs CTA, respirations non labored, breath sounds equal Gastrointestinal: soft, non distended, moderate tenderness left upper quadrant/hypochondria, no guarding, Extremities: no deformity, no trauma Neurological: Alert and oriented, speech normal, no focal neuro deficits Psychiatric: cooperative, affect appropriate for age, Medical Decision Making MEDICAL DECISION MAKING Number and Complexity of Problems Differential Diagnosis: [] [facility] Data External documents reviewed: ER visit document from [facility] My EKG interpretation: [] My CT interpretation: [] My X-ray interpretation: [] My Ultrasound interpretation: [] Decision rules/scores evaluated: [] Discussed with: Dr. Claros Treatment and Disposition ED Course: The patient presented with left sided abdominal pain/flank and hematuria. She had a ureteral stent placed in March. Ever since she has been having blood. More likely her blood is due to the stent. The patient was seen at [facility] ER on Saturday and Saturday. Records from her ER visit were retrieved. She had a CT done on Saturday which showed stent in place with some inflammatory changes on the ureters. She does have 0.3 cm stone on the left upper pole of the kidney and 0.8 cm on the lower pole of the left kidney. There is no obstructive uropathy per CT. Her blood work had showed that white count was 11.9 on Saturday. On Saturday was 17,000 and her white count today has dropped to 11.7. Renal ultrasound did not reveal any hydronephrosis. The x-ray shows stent in the ureter. The urine shows hematuria with some abnormality. Negative for nitrates. The patient is on Bactrim. Her pain improved after the Toradol and IV fluid. The patient was concerned because she had read on [employer] that urinary stents cannot stay longer than 2 weeks. The case was discussed with Dr. Claros and he agreed to discharge patient home and his office will call the patient. The patient was instructed to continue taking the Bactrim. She is instructed to return to the emergency room if her pain gets worse, fever or any new symptoms. Shared decision making: [] Code status: [] Assessment/Plan 1. Flank pain (R10.9: Unspecified abdominal pain) 2. Hematuria (R31.9: Hematuria, unspecified) Orders: ketorolac, 30 mg = 1 mL, Injection, IV Push, Once, Stop date 05/20/23 11:59:00 EDT, STAT, Start date 05/20/23 11:59:00 EDT, 05/20/23 11:59:00 EDT Sodium Chloride 0.9% intravenous solution, 1,000 mL, Soln-IV, IV, Once, Stop date 05/20/23 11:59:00 EDT, STAT, Start date 05/20/23 11:59:00 EDT, Infuse over 61, minute(s) Basic Metabolic Panel CBC w/ Auto Diff eGFR Extra SST Tube PT & PTT U Beta Hcg Qual UA with Cult Rflx Urine Culture US Renal XR Abdomen 1 View Medications Administered Given ketorolac 30 mg/mL Inj 1 mL, 30 mg, IV Push NS 1000 ml Bolus, 1000 mL, IV Disposition Plan Patient Discharge Condition Stable, improved Discharge Disposition Discharge home Discharge Prescription List Prescriptions No active prescription medications Follow-up With When Contact Information Viral SHAWN In 3 days 05/23/[address] [phone] (more content not included)... Normal [facility] Comment on above: Result Comment: Elec tronically Signed By: Raf Adler, Lawson Pryor\.br\Date and Time Signed: 05/20/23 15:04 EDT ED Patient Education Noteon 05-20-2023 ED Patient Education Note Orthopedics Flank Pain, Adult Flank pain is pain that is located on the side of the body between the upper abdomen and the spine. This area is called the flank. The pain may occur over a short period of time (acute), or it may be long-term or recurring (chronic). It may be mild or severe. Flank pain can be caused by many things, including: ? Muscle soreness or injury. ? Kidney infection, kidney stones, or kidney disease. ? Stress. ? A disease of the spine (vertebral disk disease). ? A lung infection (pneumonia). ? Fluid around the lungs (pulmonary edema). ? A skin rash caused by the chickenpox virus (shingles). ? Tumors that affect the back of the abdomen. ? Gallbladder disease. Follow these instructions at home: ? Drink enough fluid to keep your urine pale yellow. ? Rest as told by your health care provider. ? Take ibet-jkh-ohbkxmt and prescription medicines only as told by your health care provider. ? Keep a journal to track what has caused your flank pain and what has made it feel better. ? Keep all follow-up visits. This is important. Contact a health care provider if: ? Your pain is not controlled with medicine. ? You have new symptoms. ? Your pain gets worse. ? Your symptoms last longer than 2?3 days. ? You have trouble urinating or you are urinating very frequently. Get help right away if: ? You have trouble breathing or you are short of breath. ? Your abdomen hurts or it is swollen or red. ? You have nausea or vomiting. ? You feel faint, or you faint. ? You have blood in your urine. ? You have flank pain and a fever. These symptoms may represent a serious problem that is an emergency. Do not wait to see if the symptoms will go away. Get medical help right away. Call your local emergency services (911 in the [place] Do not drive yourself to the hospital. Summary ? Flank pain is pain that is located on the side of the body between the upper abdomen and the spine. ? The pain may occur over a short period of time (acute), or it may be long-term or recurring (chronic). It may be mild or severe. ? Flank pain can be caused by many things. ? Contact your health care provider if your symptoms get worse or last longer than 2?3 days. This information is not intended to replace advice given to you by your health care provider. Make sure you discuss any questions you have with your health care provider. Document Revised: 04/17/2021 Document Reviewed: 04/17/2021 [employer] Patient Education ? 2022 [employer]. Urology Hematuria, Adult Hematuria is blood in the urine. Blood may be visible in the urine, or it may be identified with a test. This condition can be caused by infections of the bladder, urethra, kidney, or prostate. Other possible causes include: ? Kidney stones. ? Cancer of the urinary tract. ? Too much calcium in the urine. ? Conditions that are passed from parent to child (inherited conditions). ? Exercise that requires a lot of energy. Infections can usually be treated with medicine, and a kidney stone usually will pass through your urine. If neither of these is the cause of your hematuria, more tests may be needed to identify the cause of your symptoms. It is very important to tell your health care provider about any blood in your urine, even if it is painless or the blood stops without treatment. Blood in the urine, when it happens and then stops and then happens again, can be a symptom of a very serious condition, including cancer. There is no pain in the initial stages of many urinary cancers. Follow these instructions at home: Medicines ? Take utgt-gue-dpixxmw and prescription medicines only as told by your health care provider. ? If you were prescribed an antibiotic medicine, take it as told by your health care provider. Do not stop taking the antibiotic even if you start to feel better. Eating and drinking ? Drink enough fluid to keep your urine pale yellow. It is recommended that you drink 3?4 quarts (2.8?3.8 L) a day. If you have been diagnosed with an infection, drinking cranberry juice in addition to large amounts of water is recommended. ? Avoid caffeine, tea, and carbonated beverages. These tend to irritate the bladder. ? Avoid alcohol because it may irritate the prostate (in males). General instructions ? If you have been diagnosed with a kidney stone, follow your health care provider's instructions about straining your urine to catch the stone. ? Empty your bladder often. Avoid holding urine for long periods of time. ? If you are female: ? After a bowel movement, wipe from front to back and use each piece of toilet paper only once. ? Empty your bladder before and after sex. ? Pay attention to any changes in your symptoms. Tell your health care provider about any changes or any new symptoms. ? It is up to you to get the results of any tests. Ask your health care provider, or the departmen (more content not included)... Normal [facility] ED Patient Summaryon 024 ED Patient Summary [address] [address] Patient Discharge Instructions Person Information Name: SUNSHINE RYDER Age: 23 Years Arrival Date: 05/20/2023 11:32:16 Discharge Diagnosis: 1:Flank pain; 2:Hematuria Primary Care Physician: GAYE DILL MD Provider Information Primary Provider: Lawson Carbone M.D. Advanced Access Services Representative:None The exam and treatment you received in the Emergency Department were for an urgent problem and are not intended as complete care. It is important that you follow up with a doctor, nurse practitioner, or physician?s legal support assistant for ongoing care. If your symptoms become worse or you do not improve as expected and you are unable to reach your usual health care provider, you should return to the Emergency Department. We are available 24 hours a day. SUNSHINE RYDER has been given the following list of patient education materials, prescriptions and follow-up instructions: Follow-up Instructions: With: Address: When: Viral CLAROS [address] [place] [address], [address], [place] [phone] Business (1) In 3 days 05/23/2023 Comments: Call Dr for diagnosis based follow up. Dr. Claros's office is going to call. Call the office if they do not call you in the next couple days. Continue taking Bactrim as prescribed. Return to the emergency room if your pain gets worse, fever or any new symptoms. With: Address: When: GAYE DILL [address] [place], [place] [id number] Business (1) In 3 days In the event that this physician does not participate in your insurance network, please consult with your insurance company to find a nearby participating provider. Patient Education Materials: Hematuria, Adult; Ureteral Stent Implantation, Care After; Flank Pain, Adult A MESSAGE TO ALL PATIENTS REGARDING OPIOIDS PRESCRIPTION OPIOIDS: WHAT YOU NEED TO KNOW Prescription opioids can be used to help relieve lrqqvfsh-iw-udhmix pain and are often prescribed following a surgery or injury, or for certain health conditions. These medications can be an important part of the treatment but also come with serious risks. It is important to work with your healthcare provider to make sure you are getting the safest, most effective care. WHAT ARE THE RISKS AND SIDE EFFECTS OF OPIOID USE? Prescription opioids carry serious risks of addiction and overdose, especially with prolonged use. An opioid overdose, often marked by slowed breathing, can cause sudden . The use of prescription opioids can have a number of side effects as well, even when taken as directed: ? Tolerance?meaning you might need to take more of the medication for the same pain relief ? Physical dependence?meaning you have symptoms of withdrawal when a medication is stopped ? Increased sensitivity to pain ? Constipation ? Nausea, vomiting, and dry mouth ? Sleepiness and dizziness ? Confusion ? Depression ? Low levels of testosterone that can result in lower sex drive, energy, and strength ? Itching and sweating RISKS ARE GREATER WITH: ? History of drug misuse, substance use disorder, or overdose ? Mental health conditions (such as depression or anxiety) ? Sleep apnea ? Older age (65 years and older) ? Avoid alcohol while taking prescription opioids. Also, unless specifically advised by your health care provider, medications to avoid include: ? Benzodiazepines (such as Xanax or Valium) ? Muscle relaxants (such as Soma or Flexeril) ? Hypnotics (such as Ambien or Lunesta) ? Other prescription opioids KNOW YOUR OPTIONS Talk to your health care provider about ways to manage your pain that don?t involve prescription opioids. Some of these options may actually work better and have fewer risks and side effects. Options may include: ? Pain relievers such as acetaminophen, ibuprofen, and naproxen ? Some medication that are also used for depression or seizures ? Physical therapy and exercise ? Cognitive behavioral therapy, a psychological, goal-directed approach, in which patients learn how to modify physical, behavioral, and emotional triggers of pain and stress. IF YOU ARE PRESCRIBED OPIOIDS FOR PAIN: ? Never take opioids in greater amounts or more often than prescribed. ? Follow up with your primary health care provider. o Work together to create a plan on how to manage your pain. o Talk about ways to help manage your pain that don?t involve prescription opioids. o Talk about any and all concerns and side effects. ? Help prevent misuse and abuse o Never sell or share prescription opioids. o Never use another person?s prescription opioids. ? Store prescription opioids in a secure place and out of reach of others (this may include visitors, children, friends, and family). ? Safely dispose of unused prescription opioids: Find your community drug take-ba (more content not included)... [facility] HEMATOLOGYOrdered By: SYSTEM SYSTEM on 05-20-2023 Basophils/100 WBC (Bld) 1.0 % Normal 0.0 - 2.0 % Remisol Heme Basophils/Leukocytes Auto (Bld) [Pure # fraction] 0.1 E9/L Normal 0.0 - 0.2 E9/L Remisol Heme Eosinophils (Bld) [#/Vol] 0.3 E9/L Normal 0.0 - 0.5 E9/L Remisol Heme Eosinophils/100 WBC (Bld) 2.2 % Normal 0.0 - 8.0 % Remisol Heme Erythrocyte distribution width (RBC) [Ratio] 13.1 % Normal 10.9 - 14.2 % Remisol Heme Hematocrit (Bld) [Volume fraction] 41.5 % Normal 34.0 - 46.0 % Remisol Heme Hemoglobin (Bld) [Mass/Vol] 14.0 g/dL Normal 12.0 - 16.0 gm/dL Remisol Heme Lymphocytes (Bld) [#/Vol] 2.4 E9/L Normal 1.0 - 4.0 E9/L Rem[facility] Heme Lymphocytes/100 WBC (Bld) 20.0 % Normal 14.0 - 50.0 % Remisol Heme MCH (RBC) [Entitic mass] 30.2 pg Normal 27.0 - 34.0 pg Remisol Heme MCHC (RBC) [Mass/Vol] 33.9 g/dL Normal 31.4 - 36.0 gm/dL Remisol Heme MCV (RBC) [Entitic vol] 89.1 fL Normal 80.0 - 100.0 fL Remisol Heme Monocytes (Bld) [#/Vol] 0.8 E9/L Normal 0.2 - 1.0 E9/L Remisol Heme Monocytes/100 WBC (Bld) 6.6 % Normal 4.0 - 14.0 % Remisol Heme Neutrophils (Bld) [#/Vol] 8.3 E9/L High 2.0 - 7.5 E9/L Remisol Heme Neutrophils/100 WBC (Bld) 70.2 % Normal 36.0 - 75.0 % Rem[facility] Heme Platelet mean volume (Bld) [Entitic vol] 8.8 fL Normal 6.4 - 10.8 fL Remisol Heme Platelets (Bld) [#/Vol] 259.0 E9/L Normal 150.0 - 500.0 E9/L Remisol Heme RBC (Bld) [#/Vol] 4.7 E12/L Normal 4.3 - 5.9 E12/L Rem[facility] Heme WBC corrected for nucl RBC Auto (Bld) [#/Vol] 11.7 E9/L High 4.0 - 11.0 E9/L Remisol Heme Outside Recordson 05-20-2023 Outside Records [id number]#1. 00TIFF Normal [facility] PT & PTTon 05-20-2023 aPTT Coag (PPP) [Time] 33.6 second(s) Normal 25.1-36.5 [facility] Comment on above: Result Comment: Para [...] the same coagulation reagent and instrumentation as [facility]. Currently there are no coagulation studies available worldwide for children to 14 days, and no normal ranges. Heparin therapeutic range (represented by Anti-Factor Xa activity of 0.2 - 0.4 U/mL) corresponds to PTT of 56.6 - 109.0 sec. Performed By: #### 2 [id number], [id number], [id number], [id number] ####[facility] [address] [place] [address] INR Coag (PPP) [Relative time] 1.08 {INR} Invalid Interpretation Code [facility] Comment on above: Result Comment: INR results are specifically intended to assess patients stabilized on long-term Anticoagulation therapy suggested INR?s ?Less Intensive Anticoagulation? 2.0 ? 3.0 Conventional Range 3.0 ? 4.5 Performed By: #### 2 [id number], [id number], [id number], [id number] ####[facility] [address] [place] [address] PT Coag (PPP) [Time] 12.1 second(s) Normal 9.4-12.5 [facility] Comment on above: Result Comment: 15 [...] ranges were obtained from a study by osvaldo Medina al. prepared from 1437 samples obtained at 7 different centers using the same coagulation reagent and instrumentation as [facility]. Currently there are no coagulation studies available worldwide for children to 14 days, and no normal ranges. Performed By: #### 2 [id number], [id number], [id number], [id number] ####[facility] [id number] [place] [address] SEROLOGYOrdered By: Mike Herron on 05-20-2023 HCG.beta subunit (U) [Moles/Vol] Negative Normal [facility] Man Sero U BetaHcg Qualon 05-20-2023 HCG.beta subunit (U) [Moles/Vol] Negative Normal [facility] Comment on above: Performed By: #### 2 [id number], [id number], [id number] #### [facility] [address] [place] [address] UA with Cult Rflxon 05-20-19 24 Color (U) Light[place] Abnormal Yellow [facility] Comment on above: Result Comment: Micr oscopic readings are only performed on those samples that meet specific criteria set forth by [facility]. Performed By: #### 2 [id number], [id number], [id number] #### [facility] [address] [place] [address] Glucose (U) [Mass/Vol] Negative Normal Negative [facility] Comment on above: Performed By: #### 2 [id number], [id number], [id number] #### [facility] [address] [place] [address] Ketones Ql (U) Negative Normal Negative [facility] Comment on above: Performed By: #### 2 [id number], [id number], [id number] #### [facility] [address] [place] [address] UA Blood 3+ mg/dL Abnormal Negative [facility] Comment on above: Performed By: #### 2 [id number], [id number], [id number] #### [facility] [address] [place] [address] UA Bacteria Trace Normal Trace [facility] Comment on above: Performed By: #### 2 [id number], [id number], [id number] #### [facility] [address] [place] [address] UA Clarity Turbid Abnormal Clear [facility] Comment on above: Performed By: #### 2 [id number], [id number], [id number] #### [facility] [address] [place] [address] UA Leuk Est 250 Mitchell/uL Abnormal Negative [facility] Comment on above: Performed By: #### 2 [id number], [id number], [id number] #### [facility] [address] [place] [address] UA Mucous 1+ CD:[id number] Abnormal Negative [facility] Comment on above: Performed By: #### 2 [id number], [id number], [id number] #### [facility] [address] [place] [address] UA Nitrite Negative Normal Negative [facility] Comment on above: Performed By: #### 2 [id number], [id number], [id number] #### [facility] [address] [place] [address] UA pH 6.0 Invalid Interpretation Code 5.0-9.0 [facility] Comment on above: Performed By: #### 2 [id number], [id number], [id number] #### [facility] [address] [place] [address] UA Protein 1+ mg/dL Abnormal Negative [facility] Comment on above: Performed By: #### 2 [id number], [id number], [id number] #### [facility] [address] [place] [address] UA RBC >75 Abnormal 0-3 [facility] Comment on above: Performed By: #### 2 7573946, [id number], [id number] #### [facility] [address] [place] [address] UA Spec Grav 1.015 Invalid Interpretation Code 1.005-1.030 [facility] Comment on above: Performed By: #### 2 [id number], [id number], [id number] #### [facility] [address] [place] [address] UA Squam Epithelial 0-2 Normal 0-[address] [facility] Comment on above: Performed By: #### 2 [id number], [id number], [id number] #### [facility] [address] [place] [address] UA Urobilinogen Negative Normal Negative [facility] Comment on above: Performed By: #### 2 [id number], [id number], [id number] #### [facility] [address] [place] [address] UA WBC 6-15 Abnormal 0-5 [facility] Comment on above: Performed By: #### 2 [id number], [id number], [id number] #### [facility] [address] [place] [address] Urobilinogen (U) [Mass/Vol] Negative Normal Negative [facility] Comment on above: Performed By: #### 2 [id number], [id number], [id number] #### [facility] [address] [place] [address] UA Spec Desc Clean Catch Normal [facility] Comment on above: Performed By: #### 2 [id number], [id number], [id number] #### [facility] [address] [place] [address] URINALYSISOrdered By: SYSTEM SYSTEM on 05-20-2023 Color (U) Light-[place] 1 *ABN* (05/20/23 11:54 AM) Invalid Interpretation Code Yellow [facility] UA Auto SS Comment on above: Interpretive Data: M icroscopic readings are only performed on those samples that meet specific criteria set forth by [facility]. Glucose (U) [Mass/Vol] Negative Normal Negativemg/ dL [facility] UA Auto SS Ketones Ql (U) Negative Normal Negativemg/ dL [facility] UA Auto SS UA Bacteria Trace graded/HPF Normal Tracegraded /HPF [facility] UA Auto SS UA Blood 3+ mg/dL Invalid Interpretation Code Negativemg/ dL [facility] UA Auto SS UA Clarity Turbid *ABN* (05/20/23 11:54 AM) Invalid Interpretation Code Clear [facility] UA Auto SS UA Leuk Est 250 Mitchell/uL Mitchell/uL Invalid Interpretation Code NegativeLeu /uL [facility] UA Auto SS UA Mucous 1+ graded/LPF Invalid Interpretation Code Negativegra ded/LPF [facility] UA Auto SS UA Nitrite Negative Normal Negativemg/ dL [facility] UA Auto SS UA pH 6.0 *NA* (05/20/23 11:54 AM) Invalid Interpretation Code 5.0 - 9.0 [facility] UA Auto SS UA Protein 1+ mg/dL Invalid Interpretation Code Negativemg/ dL [facility] UA Auto SS UA RBC >75 graded/HPF Invalid Interpretation Code 0-3graded/H PF [facility] UA Auto SS UA Spec Grav 1.015 *NA* (05/20/23 11:54 AM) Invalid Interpretation Code 1.005 - 1.030 [facility] UA Auto SS UA Squam Epithelial 0-2 graded/HPF Normal 0-2gra ded/H PF [facility] UA Auto SS UA Urobilinogen Negative Normal Negativemg/ dL [facility] UA Auto SS UA WBC 6-15 graded/HPF Invalid Interpretation Code 0-5graded/H PF [facility] UA Auto SS Urobilinogen (U) [Mass/Vol] Negative Normal Negativemg/ dL [facility] UA Auto SS URINALYSISOrdered By: Yuridia Ovalle on 05-20-2023 UA Spec Desc Clean Catch (05/20/23 11:54 AM) Normal [facility] UA Auto SS US Renalon 05-20-2023 US Renal Exam Date/Time: 05/20/2023 13:11 EDT Reason for Exam: Pain Report IMPRESSION: Left pelviectasis. Partially imaged left ureteral stent. No distinct calculi sonographically. EXAMINATION: US Renal HISTORY: Left flank pain. TECHNIQUE: Sonography of the kidneys was performed. Images were obtained and stored in a permanent archive. Unless otherwise stated, incidental findings identified in this report do not require routine follow-up imaging. COMPARISON: Radiographs 05/20/2023 RESULT: Right Kidney: -Renal length: 11.4 cm cm -Parenchyma: Normal parenchymal echogenicity. Normal parenchymal thickness. -Collecting system: No hydronephrosis. -Calculus: No echogenic, shadowing calculus. -Lesion: None. Left Kidney: -Renal length: 12.5 cm cm -Parenchyma: Normal parenchymal echogenicity. Normal parenchymal thickness. -Collecting system: Pelviectasis, with partially imaged ureteral stent. -Calculus: No echogenic, shadowing calculus. -Lesion: None. Bladder: Not evaluated. Incidental increased liver echogenicity, suggestive of steatosis. Ordering Provider: Lawson Carbone FINAL REPORT Dictated: 05/20/2023 1:16 pm Viraj Jordan MD Signed (Electronic Signature): 05/20/2023 1:16 pm Signed by: Viraj Jordan MD Transcribed by: WILMER Technologist: MARY Allan [facility] XR Abdomen 1 Viewon 05-20-19 XR Abdomen 1 View Exam Date/Time: 05/20/2023 12:37 EDT Reason for Exam: Flank pain Report IMPRESSION: Left ureteral stent. Possible small left renal calculi. EXAMINATION/TECHNIQUE: XR Abdomen 1 View HISTORY: Left flank pain. Hematuria. COMPARISON: 04/18/2023. RESULT: Left ureteral stent with ends looped in the region of the left renal pelvis and urinary bladder. No distinct calcifications radiographically projecting along the course of the stent. Possible small left renal calculi measuring up to 4 mm, or bowel debris. No distinct calcifications projecting over the right kidney or expected course of the right ureter. Nonspecific nondilated bowel gas pattern. Lung bases unremarkable. No acute osseous findings. No other significant abnormality. Ordering Provider: Lawson Carbone FINAL REPORT Dictated: 05/20/2023 12:44 pm Viraj Jordan MD Signed (Electronic Signature): 05/20/2023 12:44 pm Signed by: Viraj Jordan MD Transcribed by: WILMER Technologist: YVETTE Technical Comments Radiation Dose: Ka,r in mGy = na DAP = na Normal [facility] eGFRon 05-20-2023 eGFR 93 mL/min/1.73 m2 Normal >=59 [facility] Comment on above: Order Comment: Order added by Discern Expert. Performed By: #### 2 [id number], [id number], [id number], [id number] ####[facility] [address] [place] [address] BASIC METABOLIC PANLon 05-18 Anion gap [Moles/Vol] 6 mmol/L Normal 5-15 [facility] Comment on above: Performed By: #### C BCA, BMP #### [facility] ([id number]) [address] [place] [address] 48713 Calcium [Mass/Vol] 8.9 mg/dL Normal 8.5-10.5 [facility] Comment on above: Performed By: #### C BCA, BMP #### [facility] ([id number]) [address] [place] [address] 10870 Chloride [Moles/Vol] 110 mmol/L High 98-109 [facility] Comment on above: Performed By: #### C BCA, BMP #### [facility] ([id number]) [address] [place] [address] 18230 CO2 [Moles/Vol] 19 mmol/L Low 22-32 [facility] Comment on above: Performed By: #### C BCA, BMP #### [facility] ([id number]) [address] [place] [address] 39103 Creatinine [Mass/Vol] 0.83 mg/dL Normal 0.40-1.00 [facility] Comment on above: Result Comment: METH OD TRACEABLE TO IDMS STANDARD Performed By: #### C BCA, BMP #### [facility] ([id number]) [address] [place] [address] 23564 eGFR (CKD-EPI) NON-RACE DEPENDENT >90 Normal >59 [facility] Comment on above: Result Comment: Reported eGFR is based on the CKD-EPI 2020 equation that does not use a race coefficient. Performed By: #### C DAVID, BMP #### [facility] ([id number]) [address] [place] [address] 98567 Glucose [Mass/Vol] 124 mg/dL High 65-99 [facility] Comment on above: Performed By: #### C DAVID, BMP #### [facility] ([id number]) [address] [place] [address] 64240 Potassium [Moles/Vol] 3.8 mmol/L Normal 3.5-5.0 [facility] Comment on above: Performed By: #### C DAVID, BMP #### [facility] ([id number]) [address] [place] [address] 09254 Sodium [Moles/Vol] 135 mmol/L Normal 134-146 [facility] Comment on above: Performed By: #### C DAVID, BMP #### [facility] ([id number]) [address] [place] [address] 89000 Urea nitrogen [Mass/Vol] 20 mg/dL Normal 5-23 [facility] Comment on above: Performed By: #### C DAVID, BMP #### [facility] ([id number]) [address] [place] [address] 48213 CBC AND AUTO DIFFon 05-19-19 24 ABSOLUTE BASOPHIL 0.1 X10E9/L Normal 0.0-0.2 [facility] Comment on above: Performed By: #### C BCA, BMP #### [facility] ([id number]) [address] [place] [address] 31365 ABSOLUTE NEUTROPHIL 14.5 X10E9/L High 1.5-6.6 [facility] Comment on above: Performed By: #### C BCA, BMP #### [facility] ([id number]) [address] [place] [address] 01501 Basophils/100 WBC (Bld) 0.5 % Normal [facility] Comment on above: Performed By: #### C BCA, BMP #### [facility] ([id number]) [address] [place] [address] 70192 Eosinophils (Bld) [#/Vol] 0.1 10*3/uL Normal 0.0-0.4 [facility] Comment on above: Performed By: #### C DAVID, BMP #### [facility] ([id number]) [address] [place] [address] 92486 Eosinophils/100 WBC (Bld) 0.8 % Normal [facility] Comment on above: Performed By: #### C DAVID, BMP #### [facility] ([id number]) [address] [place] [address] 60307 Erythrocyte distribution width (RBC) [Ratio] 13.1 % Normal 11.5-15.0 [facility] Comment on above: Performed By: #### C BCA, BMP #### [facility] ([id number]) [address] [place] [address] 89656 Hematocrit (Bld) [Volume fraction] 42.0 % Normal 35-47 [facility] Comment on above: Performed By: #### C BCA, BMP #### [facility] ([id number]) [address] [place] [address] 28590 Hemoglobin (Bld) [Mass/Vol] 14.4 g/dL Normal 11.7-15.5 [facility] Comment on above: Performed By: #### C BCA, BMP #### [facility] ([id number]) [address] [place] [address] 22202 Lymphocytes (Bld) [#/Vol] 1.6 10*3/uL Normal 1.0-3.5 [facility] Comment on above: Performed By: #### C DAVID, BMP #### [facility] ([id number]) [address] [place] [address] 37935 Lymphocytes/100 WBC (Bld) 9.0 % Normal [facility] Comment on above: Performed By: #### C DAVID, BMP #### [facility] ([id number]) [address] [place] [address] 00662 MCH (RBC) [Entitic mass] 30.1 pg Normal 27-34 [facility] Comment on above: Performed By: #### C DAVID, BMP #### [facility] ([id number]) [address] [place] [address] 67798 MCHC (RBC) [Mass/Vol] 34.3 g/dL Normal 32-36 [facility] Comment on above: Performed By: #### C DAVID, BMP #### [facility] ([id number]) [address] [place] [address] 93657 MCV (RBC) [Entitic vol] 88 fL Normal 80-100 [facility] Comment on above: Performed By: #### C BCA, BMP #### [facility] ([id number]) [address] [place] [address] 50417 Monocytes (Bld) [#/Vol] 0.9 10*3/uL Normal 0-0.9 [facility] Comment on above: Performed By: #### C BCA, BMP #### [facility] ([id number]) [address] [place] [address] 96119 Monocytes/100 WBC (Bld) 5.2 % Normal [facility] Comment on above: Performed By: #### C BCA, BMP #### [facility] ([id number]) [address] [place] [address] 38750 Neutrophils/100 WBC (Bld) 84.5 % Normal [facility] Comment on above: Performed By: #### C DAVID, BMP #### [facility] ([id number]) [address] [place] [address] 15929 Platelet mean volume (Bld) [Entitic vol] 8.5 fL Normal 7-12 [facility] Comment on above: Performed By: #### C DAVID, BMP #### [facility] ([id number]) [address] [place] [address] 42949 Platelets (Bld) [#/Vol] 300 10*3/uL Normal 150-450 [facility] Comment on above: Performed By: #### C DAVID, BMP #### [facility] ([id number]) [address] [place] [address] 59531 RBC COUNT 4.78 X10E12/L Normal 3.80-5.20 [facility] Comment on above: Performed By: #### C DAVID, BMP #### [facility] ([id number]) [address] [place] [address] 96216 WBC (Bld) [#/Vol] 17.2 10*3/uL High 4.0-11.0 [facility] Comment on above: Performed By: #### C DAVID, BMP #### [facility] ([id number]) [address] [place] [address] 81615 UA (MICROSCOPIC)on 4 R.B.CELLS >100 High 0-5 [facility] Comment on above: Performed By: #### U DEEPALI #### [facility] ([id number]) [address] [place] [address] 40157 SQUAMOUS EPITHELIUM PRESENT Normal 0-5 [facility] Comment on above: Performed By: #### U DEEPALI #### [facility] ([id number]) [address] [place] [address] 98124 Urinalysis dipstick W Reflex Microscopic panel (U) Results maybe affected due to High RBC count, interpretwith caution. Normal [facility] Comment on above: Performed By: #### U DEEPALI #### [facility] ([id number]) [address] [place] [address] 16154 W.B.CELLS PRESENT Normal 0-5 [facility] Comment on above: Performed By: #### U DEEPALI #### [facility] ([id number]) [address] [place] [address] 65482 URINE CULTUREon 05-19-2023 Bacteria identified Cx Nom (U) CULTURE RESULTS <10,000 ORGANISMS/ML NORMAL URO GENITAL FARIHA Normal [facility] Comment on above: Performed By: #### 6 30-4 #### [facility] ([id number]) [address], [address] [place] [address] CBC AND AUTO DIFFon 05-17-19 24 ABSOLUTE BASOPHIL 0.1 X10E9/L Normal 0.0-0.2 [facility] Comment on above: Performed By: #### C BCA, CMP #### [facility] ([id number]) [address] [place] [address] 80063 ABSOLUTE NEUTROPHIL 8.3 X10E9/L High 1.5-6.6 [facility] Comment on above: Performed By: #### C BCA, CMP #### [facility] ([id number]) [address] [place] [address] 82725 Basophils/100 WBC (Bld) 0.5 % Normal [facility] Comment on above: Performed By: #### C BCA, CMP #### [facility] ([id number]) [address] [place] [address] 92155 Eosinophils (Bld) [#/Vol] 0.3 10*3/uL Normal 0.0-0.4 [facility] Comment on above: Performed By: #### C BCA, CMP #### [facility] ([id number]) [address] [place] [address] 61780 Eosinophils/100 WBC (Bld) 2.7 % Normal [facility] Comment on above: Performed By: #### C BCA, CMP #### [facility] ([id number]) [address] [place] [address] 24629 Erythrocyte distribution width (RBC) [Ratio] 13.5 % Normal 11.5-15.0 [facility] Comment on above: Performed By: #### C DAVID, CMP #### [facility] ([id number]) [address] [place] [address] 22304 Hematocrit (Bld) [Volume fraction] 41.5 % Normal 35-47 [facility] Comment on above: Performed By: #### C BCA, CMP #### [facility] ([id number]) [address] [place] [address] 19059 Hemoglobin (Bld) [Mass/Vol] 14.5 g/dL Normal 11.7-15.5 [facility] Comment on above: Performed By: #### C BCA, CMP #### [facility] ([id number]) [address] [place] [address] 35091 Lymphocytes (Bld) [#/Vol] 2.5 10*3/uL Normal 1.0-3.5 [facility] Comment on above: Performed By: #### C BCA, CMP #### [facility] ([id number]) [address] [place] [address] 98096 Lymphocytes/100 WBC (Bld) 20.8 % Normal [facility] Comment on above: Performed By: #### C BCA, CMP #### [facility] ([id number]) [address] [place] [address] 02186 MCH (RBC) [Entitic mass] 30.7 pg Normal 27-34 [facility] Comment on above: Performed By: #### C DAVID, CMP #### [facility] ([id number]) [address] [place] [address] 37874 MCHC (RBC) [Mass/Vol] 34.8 g/dL Normal 32-36 [facility] Comment on above: Performed By: #### C DAVID, CMP #### [facility] ([id number]) [address] [place] [address] 21594 MCV (RBC) [Entitic vol] 88 fL Normal 80-100 [facility] Comment on above: Performed By: #### C DAVID, CMP #### [facility] ([id number]) [address] [place] [address] 99013 Monocytes (Bld) [#/Vol] 0.8 10*3/uL Normal 0-0.9 [facility] Comment on above: Performed By: #### C DAVID, CMP #### [facility] ([id number]) [address] [place] [address] 94894 Monocytes/100 WBC (Bld) 6.6 % Normal [facility] Comment on above: Performed By: #### C DAVID, CMP #### [facility] ([id number]) [address] [place] [address] 09306 Neutrophils/100 WBC (Bld) 69.4 % Normal [facility] Comment on above: Performed By: #### C BCA, CMP #### [facility] ([id number]) [address] [place] [address] 30292 Platelet mean volume (Bld) [Entitic vol] 8.8 fL Normal 7-12 [facility] Comment on above: Performed By: #### C BCA, CMP #### [facility] ([id number]) [address] [place] [address] 57596 Platelets (Bld) [#/Vol] 312 10*3/uL Normal 150-450 [facility] Comment on above: Performed By: #### C BCA, CMP #### [facility] ([id number]) [address] [place] [address] 74305 RBC COUNT 4.72 X10E12/L Normal 3.80-5.20 [facility] Comment on above: Performed By: #### C BCA, CMP #### [facility] ([id number]) [address] [place] [address] 91562 WBC (Bld) [#/Vol] 11.9 10*3/uL High 4.0-11.0 [facility] Comment on above: Performed By: #### C BCA, CMP #### [facility] ([id number]) [address] [place] [address] 74202 COMPREHENSIVE METABOLIC PANE Dayron 05-17-2023 Albumin [Mass/Vol] 3.9 g/dL Normal 3.2-5.3 [facility] Comment on above: Performed By: #### C BCA, CMP #### [facility] ([id number]) [address] [place] [address] 95284 ALP [Catalytic activity/Vol] 54 U/L Normal 39-130 [facility] Comment on above: Performed By: #### C BCA, CMP #### [facility] ([id number]) [address] [place] [address] 48823 ALT [Catalytic activity/Vol] 22 U/L Normal 0-31 [facility] Comment on above: Performed By: #### C BCA, CMP #### [facility] ([id number]) [address] [place] [address] 43224 Anion gap [Moles/Vol] 2 mmol/L Low 5-15 [facility] Comment on above: Performed By: #### C BCA, CMP #### [facility] ([id number]) [address] [place] [address] 59902 AST [Catalytic activity/Vol] 15 U/L Normal 0-41 [facility] Comment on above: Performed By: #### C BCA, CMP #### [facility] ([id number]) [address] [place] [address] 08482 Bilirubin [Mass/Vol] 0.9 mg/dL Normal 0.3-1.2 [facility] Comment on above: Performed By: #### C BCA, CMP #### [facility] ([id number]) [address] [place] [address] 70559 Calcium [Mass/Vol] 8.0 mg/dL Low 8.5-10.5 [facility] Comment on above: Performed By: #### C BCA, CMP #### [facility] ([id number]) [address] [place] [address] 53652 Chloride [Moles/Vol] 112 mmol/L High 98-109 [facility] Comment on above: Performed By: #### C BCA, CMP #### [facility] ([id number]) [address] [place] [address] 47763 CO2 [Moles/Vol] 21 mmol/L Low 22-32 [facility] Comment on above: Performed By: #### C BCA, CMP #### [facility] ([id number]) [address] [place] [address] 03911 Creatinine [Mass/Vol] 0.70 mg/dL Normal 0.40-1.00 [facility] Comment on above: Result Comment: METH OD TRACEABLE TO IDMS STANDARD Performed By: #### C BCA, CMP #### [facility] ([id number]) [address] [place] [address] 27045 eGFR (CKD-EPI) NON-RACE DEPENDENT >90 Normal >59 [facility] Comment on above: Result Comment: Reported eGFR is based on the CKD-EPI 2020 equation that does not use a race coefficient. Performed By: #### C BCA, CMP #### [facility] ([id number]) [address] [place] [address] 32181 Glucose [Mass/Vol] 112 mg/dL High 65-99 [facility] Comment on above: Performed By: #### C BCA, CMP #### [facility] ([id number]) [address] [place] [address] 09563 Potassium [Moles/Vol] 3.5 mmol/L Normal 3.5-5.0 [facility] Comment on above: Performed By: #### C BCA, CMP #### [facility] ([id number]) [address] [place] [address] 33081 Protein [Mass/Vol] 6.8 g/dL Normal 6.0-8.0 [facility] Comment on above: Performed By: #### C BCA, CMP #### [facility] ([id number]) [address] [place] [address] 14543 Sodium [Moles/Vol] 135 mmol/L Normal 134-146 [facility] Comment on above: Performed By: #### C BCA, CMP #### [facility] ([id number]) [address] [place] [address] 86067 Urea nitrogen [Mass/Vol] 13 mg/dL Normal 5-23 [facility] Comment on above: Performed By: #### C BCA, CMP #### [facility] ([id number]) [address] [place] [address] ABDOMEN AND PELVIS WO CON Ton 05-17-2023 CT ABDOMEN AND PELVIS WO CONT CT ABDOMEN AND PELVIS WO CONT CLINICAL INFORMATION: Abdominal/flank pain, stone suspected; Status post lithotripsy with stent placement. TECHNIQUE: CT Abdomen and Pelvis without intravenous contrast. All CT scans at this facility use dose modulation, iterative reconstruction, and/or weight based dosing when appropriate to reduce radiation dose to as low as reasonably achievable. COMPARISON: No relevant prior studies available. FINDINGS: Lung bases are unremarkable. Hepatic steatosis. The spleen, pancreas, adrenal glands, and gallbladder are unremarkable. No evidence of biliary dilatation. Left ureteral stent in expected position. Diffuse left urothelial thickening with mild peripelvic and periureteral inflammation. Nonobstructing calculi measuring 0.3 cm in the superior pole left kidney and 0.8 cm in the inferior pole of left kidney. Punctate nonobstructing right interpolar renal calculus. No ureteral calculi. Bladder is unremarkable. 3.5 cm right adnexal cyst requires no further follow-up. No bowel obstruction or inflammatory changes. Unremarkable colonic stool burden. No evidence of appendicitis. Normal stomach. Small bowel distention. No free fluid or free air. The abdominal aorta is normal in course and caliber. No enlarged lymph nodes identified No aggressive osseous lesions. Body wall is unremarkable. IMPRESSION: * Left ureteral stent in expected position. Left ureteral thickening and inflammation is likely due to indwelling stent. * Nonobstructing bilateral renal calculi. * Hepatic steatosis. Finalized by Damaso Jackson MD on 05/17/2023 11:36 AM Normal [facility] HCG ( test) Ql (U)o n 05-17-2023 Beta HCG ( test) Ql (U) Negative Normal NEG [facility] Comment on above: Performed By: #### 2 106-3 #### [facility] ([id number]) [address] [place] [address], [place] [address] URINE CULTUREon 05-17-2023 Bacteria identified Cx Nom (U) CULTURE RESULTS <10,000 ORGANISMS/ML NORMAL URO GENITAL FARIHA Normal [facility] Comment on above: Performed By: #### 6 30-4 #### [facility] ([id number]) [address], [address] [place] [address] URN MACROSCOPIC NURon 2023 BILIRUBIN NISREEN Negative Normal NEG [facility] Comment on above: Performed By: #### N UM #### [facility] ([id number]) [address] [place] [address] [place] [address] BLOOD/HGB NISREEN Large Abnormal NEG [facility] Comment on above: Performed By: #### N UM #### [facility] ([id number]) [address] [place] [address], [place] [address] GLUCOSE NISREEN Negative Normal NEG [facility] Comment on above: Performed By: #### N UM #### [facility] ([id number]) [address] [place] [address], [place] [address] KETONES NISREEN Negative Normal NEG [facility] Comment on above: Performed By: #### N UM #### [facility] ([id number]) [address] [place] [address] [place] [address] LEUKOCYTE ESTERASE NISREEN Trace Abnormal NEG [facility] Comment on above: Performed By: #### N UM #### [facility] ([id number]) [address] [place] [address], [place] [address] NITRITE NISREEN Negative Normal NEG [facility] Comment on above: Performed By: #### N UM #### [facility] ([id number]) [address] [place] [address] [place] [address] PH NISREEN 7.0 Normal 5.0-8.5 [facility] Comment on above: Performed By: #### N UM #### [facility] ([id number]) [address] [place] [address] [place] [address] PROTEIN NISREEN >=300 Abnormal NEG [facility] Comment on above: Performed By: #### N UM #### [facility] ([id number]) [address] [place] [address], [place] [address] SPECIFIC GRAVITY NISREEN 1.025 Normal 1.003-1.035 [facility] Comment on above: Performed By: #### N UM #### [facility] ([id number]) [address] [place] [id number] UROBILINOGEN NISREEN 0.2 eu/dL Normal <1.1 [facility] Comment on above: Performed By: #### N UM #### [facility] ([id number]) [address] [place] [id number] Provider Letteron 05-16-2023 Provider Letter [id number] May 16, 2023 SUNSHINE RYDER [address] [place] [id number] : 2000 SUNSHINE RYDER was evaluated at [facility] 05/16/2023 16:33:47 Patient may work as scheduled with the following restrictions: Restrictions: No heavy lifting over 10lbs, allow pt to have a 15-minute break every 2 hours Provider Signature HAWA Hernandez Nurse Practitioner [facility] [address] [place] [address] Normal [facility] - MISCon 05-13-2023 RAD - MISC [id number] 30 [id number]#1.0 0TIFF Normal [facility] MISCon 04-29-2023 RAD - MISC [id number] 30 [id number]#1.0 0TIFF Normal [facility] IntraOperative Documentson 0 04-26-2023 IntraOperative Documents [id number]#1. 00TIFF Normal [facility] Main OR Intraoperative Recor don 04-23-2023 Main OR Intraoperative Record IntraOp Document Type FT Summary Primary Physician: Viral CLAROS MD Finalized Date/Time: 04/23/23 09:41:09 Pt. Name: SUNSHINE RYDER /Sex: 2000 Female Med Rec #: [id number] Physician: Viral CLAROS MD Financial #: [id number] Pt. Type: A Room/Bed: AS04/18 Admit/Disch: 04/18/23 07:31:13 - 04/18/23 13:10:00 Institution: Case Times FT Entry 1 Patient Times In Room 04/18/23 09:28:00 Out Room 04/18/23 10:05:00 Procedure Times Start 04/18/23 09:38:00 Stop 04/18/23 10:00:00 Anesthesia Times Start 04/18/23 09:28:00 Stop 04/18/23 10:05:00 Last Modified By: Paul Reddy Ii 04/18/23 10:09:37 General Comments: 04/23/23 Chart opened to review and send charges [facility]oth CSFA Case Attendance FT Entry 1 Entry 2 Entry 3 Case Attendee Rishi WALSH, Robert CLAROS MD, Goldie Nolasco Role Performed LINT CLEANER Surgeon - Primary Scrub - Primary Time In 04/18/23 09:28:00 04/18/23 09:28:00 04/18/23 09:28:00 Time Out 04/18/23 10:05:00 04/18/23 10:05:00 04/18/23 10:05:00 Procedure CYSTOSCOPY STENT CYSTOSCOPY STENT CYSTOSCOPY STENT INSERTION(Left), INSERTION(Left), INSERTION(Left), EXTRACORPOREAL SHOCK EXTRACORPOREAL SHOCK EXTRACORPOREAL SHOCK WAVE LITHOTRIPSY(Left) WAVE LITHOTRIPSY(Left) WAVE LITHOTRIPSY(Left) Comments 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 Last Modified By: Paul Reddy Ii, Alfons Ii F Letrondo, Alfons Ii F 04/18/23 10:09:42 04/18/23 10:09:42 04/18/23 10:09:42 Entry 4 Entry 5 Entry 6 Case Attendee Paul Reddy Ii RN, Kristian Palafox Role Performed Comber Fixer - Primary Staff - Other Staff - Other Time In 04/18/23 09:28:00 04/18/23 09:28:00 04/18/23 09:28:00 Time Out 04/18/23 10:05:00 04/18/23 09:35:00 04/18/23 10:05:00 Procedure CYSTOSCOPY STENT CYSTOSCOPY STENT CYSTOSCOPY STENT INSERTION(Left), INSERTION(Left), INSERTION(Left), EXTRACORPOREAL SHOCK EXTRACORPOREAL SHOCK EXTRACORPOREAL SHOCK WAVE LITHOTRIPSY(Left) WAVE LITHOTRIPSY(Left) WAVE LITHOTRIPSY(Left) Comments HELPED IN POSITIONING HELPING IN ROOM Last Modified By: Paul Reddy Ii, Alfons Ii F Letrondo, Alfons Ii F 04/18/23 10:09:42 04/18/23 10:09:42 04/18/23 10:09:42 General Comments: NAGA CLOUD FROM [employer] IS IN ATTENDANCE. [employer] Protocols FT Pre-Care Text: Implements protective measures [...] Last Modified By: Paul Reddy Ii 04/18/23 09:49:34 Post-Care Text: The patient received appropriate medication(s) safely administered during the perioperative period Surgical Procedures FT Entry 1 Entry 2 Procedure Description Procedure CYSTOSCOPY STENT EXTRACORPOREAL SHOCK INSERTION WAVE LITHOTRIPSY Modifiers Left Left Surgeon Description CYSTO LEFT STENT CYSTO LEFT STENT PLACEMENT and ESWL PLACEMENT and ESWL Primary Procedure Yes No Primary Surgeon Viral CLAROS MD, MD, Gregory P Start 04/18/23 09:38:00 04/18/23 09:38:00 Stop 04/18/23 10:00:00 04/18/23 10:00:00 Anesthesia Type General General Surgical Service Urology Urology Wound Class 2 - Clean-Contaminated 1 - Clean Last Modified By: Paul Reddy Ii, Alfons Ii F 04/18/23 10:09:44 04/18/23 10:09:44 General [...] Last Modified By: Paul Reddy Ii 04/18/23 09:49:55 Post-Care Text: The patient is free from signs and symptoms of infection Skin Asses (more content not included)... Normal [facility] Consent for Anesthesiaon Consent for Anesthesia [id number]#1.0 0TIFF [facility] Discharge Instructionson Discharge Instructions [id number]#1.0 0TIFF [facility] IntraOperative Documentson 0 04-19-2023 IntraOperative Documents [id number]#1.0 0TIFF [facility] IntraOperative Documents [id number]#1.0 0TIFF [facility] IntraOperative Documents [id number]#1.0 0TIFF [facility] Pre-Op Checkliston Pre-Op Checklist [id number]#1.0 0TIFF [facility] Consent for Procedure/Surger yon 04-18-2023 Consent for Procedure/Surgery [id number]#1.0 0TIFF Normal [facility] Consent for Treatmenton 03-22 Consent for Treatment [id number]#1.0 0TIFF Normal [facility] Discharge Instructionson Discharge Instructions SUNSHINE RYDER :2000 Visit Date:04/18/2023 Inpatient Discharge Instructions Your Care Team Admitting Physician - Viral CLAROS MD Referring Physician - Viral CLAROS MD Reason for Your Visit KIDNEY STONE [...] Up Appointments after Discharge Follow Up with Viral CLAROS When: Comments: Please call my office to [...] to keep the urine clear. Where: [address] [facility] [address] [place] [address]- [facility] (1) Medications What How Much When Instructions Next Dose New acetaminophen-hydrocod one (acetaminophen-hydroco done 325 mg-5 mg oral tablet) 1 Tablets By Mouth Every 4 hours as needed for Pain Duration: 2 Days N20.0 Pickup at [facility]/pharmacy #[id number] New cephalexin (cephalexin 500 mg Cap) 1 Capsules By Mouth Every 12 hours Duration: 5 Days Pickup at [facility]/pharmacy #3471 New oxybutynin (oxybutynin 5 mg Tab) 1 Tablets By Mouth 2 times a day Duration: 30 Days Refills: 1 Pickup at [facility]/pharmacy #3471 Unchanged acetaminophen (Tylenol 325 mg Tab) [...] Tablets By Mouth Every day Pharmacy Information [facility]/pharmacy #[id number]: [address], [place] [phone] Test Results No qualifying data available. Allergies [...] instructions at (more content not included)... Normal [facility] Comment on above: Result Comment: Elec tronically Signed By: Carlos DOUGLAS, Mindi Coats\.br\Date and Time Signed: 04/18/23 10:52 EST H&P Updateon 04-18-2023 H&P Update [id number]#1.0 0TIFF Normal [facility] Inpatient Patient Summaryon 04-18-2023 Inpatient Patient Summary [place] [id number] [facility] Clinical Discharge Instructions PERSON INFORMATION Name: SUNSHINE RYDER PHYSICIANS Admitting Physician: Viral CLAROS MD Attending Physician: Viral CLAROS MD PCP: GAYE DILL MD Discharge Diagnosis: Comment: PATIENT EDUCATION INFORMATION Instructions: Lithotripsy, Care After Medication Leaflets: Follow up: With: Address: When: Viral CLAROS [address] [place] [address], [address], [place] [phone] Business (1) Comments: Please call my office [...] the urine clear. MEDICATION LIST New Medications [id number], [address] [place], [place] [phone], [phone] acetaminophen-hydrocod one (acetaminophen-hydroco done 325 mg-5 mg [...] Tablets By Mouth every day. Comment: Normal [facility] Main OR PACU I Recordon 03-22 Main OR PACU I Record PACU Phase I Docum ent Type FT Summary Primary Physician: Viral CLAROS MD Finalized Date/Time: 04/18/23 11:05:16 Pt. Name: SUNSHINE RYDER/Sex: 2000 Female Med Rec #: [id number] Physician: Viral CLAROS MD Financial #: [id number] Pt. Type: A Room/Bed: Admit/Disch: 04/18/23 07:31:13 - Institution: Case Times [...] Signed By: Nikia Woods RN 04/18/23 11:05 [facility] Main OR PACU II Recordon Main OR PACU II Record PACU Phase II Document Type FT Summary Primary Physician: Viral CLAROS MD Finalized Date/Time: 04/18/23 13:12:09 Pt. Name: SUNSHINE RYDER Jarocho Lawson./Sex: 2000 Female Med Rec #: [id number] Physician: Viral CLAROS MD Financial #: [id number] Pt. Type: A Room/Bed: [facility] Admit/Disch: 04/18/23 07:31:13 - Institution: Case Times [...] By: Mindi Gonzalez RN 04/18/23 13:12 Normal [facility] Main OR Preoperative Recordo n 04-18-2023 Main OR Preoperative Record PreOp Document Type FT Summary Primary Physician: Viral CLAROS MD Finalized Date/Time: 04/18/23 09:46:06 Pt. Name: SUNSHINE RYDER /Sex: 2000 Female Med Rec #: [id number] Physician: Viral CLAROS MD Financial #: [id number] Pt. Type: A Room/Bed: 03/ Admit/Disch: 04/18/23 07:31:13 - Institution: Case Times [...] By: Paul Reddy Ii 04/18/23 09:46 Normal [facility] Monitor Recordon 04-18-2023 Monitor Record [id number]#1. 00TIFF Normal [facility] Operative Reporton Operative Report Patient: SUNSHINE RYDER Age: 23 years Sex: Female : 2000 Associated Diagnoses: None Author: Viral CLAROS MD Postoperative Information Date/ Time: 04/18/2023 10:03:00 Postoperative Diagnosis: Multiple left renal calculi. Performed by: Viral Claros MD. Findings: Procedure: Cystoscopy Left double-J stent [...] placed per urethra and a well-lubricated 22 Burkinan is urethroscope with 30 degree lens then passed into the bladder. Panendoscopy reveals no tumors, no stones, no diverticuli. The left orifice was cannulated and a point 035 wire was passed up into the kidney. Over that a 4.9 Burkinan Dornier stent was passed into the kidney [...] well. She is transferred to the [facility] and then back to PACU in satisfactory [...] her sister. I did send prescriptions for [place], cephalexin, and oxybutynin to the pharmacy.. Estimated Blood Loss: 0 ml. Complications: None. Anesthesia type: General. Normal [facility] Comment on above: Result Comment: Elec tronically Signed By: SHAWN COOK, Viral Catalan\.br\Date and Time Signed: 04/18/23 10:06 EST Outpatient Surgery Discharge Instructionon 04-18-2023 Outpatient Surgery Discharge Instruction [address] [address] Patient Discharge Instructions PERSON INFORMATION Name: SUNSHINE RYDER Date of : 2000 Current Date: 04/18/2023 10:02:50 PHYSICIANS Admitting Physician: Viral CLAROS MD Discharge Diagnosis: SUNSHINE RYDER has been [...] THE NEAREST EMERGENCY ROOM OR CALL 911 I, SUNSHINE RYDER, have received the attached patient education materials/instructions and have verbalized understanding: May we do a follow up call? Yes No I was present when discharge instructions were given Patient Signature Date Clinican/Nurse Signature ___ Date Follow up: With: Address: When: Viral CLAROS [address] [place] [address], [address], [place] [phone] Business (1) Comments: Please call my office [...] Information: You may receive a survey from Kimberlee Hopper asking you to rate your care experience. Your feedback is important and will help us understand what we do well and how we can improve the quality of care we provide to you, your loved ones and our community. It?s an honor to serve you. Thank you for choosing [facility] HERE ARE THE MEDICATION CHANGES THAT OCCURRED DURING YOUR HOSPITAL STAY New Medications [id number], [address] [place], [place] [phone], [phone] acetaminophen-hydrocod one (acetaminophen-hydroco done 325 mg-5 mg [...] these instructions at home: Medicines ? Take clxe-wgo-yqwfthl and prescription medicines only as told by you (more content not included)... Normal [facility] Patient Education - Texton 0 04-18-2023 [...] these instructions at home: Medicines ? Take bxzq-biu-ljpkrcz and prescription medicines only as told by [...] forming. ? (more content not included)... Normal [facility] Progress Note-Physicianon Progress Note-Physician Patient: SUNSHINE RYDER Age: 23 years Sex: Female : 2000 Associated Diagnoses: None Author: Aamir Patel Jr., DO Postoperative Information Postoperative disposition: Postoperative disposition: Home. Optimetrix number: Optimetrix number [id number]. Anesthetic utilized: General. Physical Examination Vital Signs [...] Surgery Unit, and To home ). Normal [facility] Comment on above: Result Comment: Elec [...] All Problems Abdominal pain / SNOMED CT 57793745 / Confirmed ADHD / SNOMED CT 6154549568 / Confirmed Flank pain / SNOMED CT 963589842 / Confirmed Hypertension / SNOMED CT 4356127718 / Confirmed Kidney stone / SNOMED CT 898712986 / Confirmed Smoker / SNOMED CT 693415653 / Confirmed Added secondary to documentation in Social History. Histories Past Medical History: No active or resolved past medical history items have been selected or recorded. Procedure history: Tonsillectomy (053728465). wisdom extraction (84100165). Social History Social & Psychosocial Habits Alcohol [...] Auto 54.6 % Lymph Auto 32.6 % Ritchie Auto 10.3 % Eos Auto 1.7 % Basophil Auto 0.8 % Neutro Absolute 3.1 E9/L Lymph Absolute 1.9 E9/L Ritchie Absolute 0.6 E9/L Eos Absolute 0.1 E9/L Basophil Absolute 0.0 E9/L PT 12.0 second(s) INR 1.1 NA PTT 33.2 second(s) Glucose Lvl 105 mg/dL BUN 15 mg/dL Creatinine 0.8 mg/dL eGFR 107 mL/min/1.73 m2 BUN/Creat Ratio 19 Sodium Lvl 136 mmol/L Potass (more content not included)... Normal [facility] Comment on above: Result Comment: Elec tronically Signed By: Aamir Patel Jr., DO\.eduardo\Date and Time Signed: 04/18/23 07:56 EST SEROLOGYOrdered By: Juliane Mcdonnell on 04-18-2023 HCG.beta subunit (U) [Moles/Vol] Negative Normal [facility] Man Sero U BetaHcg Qualon 04-18-2023 HCG.beta subunit (U) [Moles/Vol] Negative Normal [facility] Comment on above: Performed By: #### 2 [id number] ####[facility] [address] [place] [address] XR Abdomen 1 Viewon 04-18-19 24 XR [...] are no acute osseous changes. Ordering Provider: Viral CLAROS FINAL REPORT Dictated: 04/18/2023 8:22 am Len Ceron MD, V. Signed (Electronic Signature): 04/18/2023 8:22 am Signed by: Len Ceron MD, V. Transcribed by: WILMER Technologist: ESTELLA Technical Comments Radiation Dose: Ka,r in mGy = 0 DAP = 0 Normal [facility] BMPon 03-29-2023 Anion gap [Moles/Vol] 11 mmol/L Normal 6-16 [facility] Comment on above: Performed By: #### 1 [id number], 8010302, 48293847, 3972251 #### [facility] [address] [place] [address] BUN/Creat Ratio 19 No Units Normal 10-20 [facility] Comment on above: Performed By: #### 1 2276741, 5664888, 27578898, 9823417 #### [facility] [address] [place] [address] Calcium [Mass/Vol] 8.6 mg/dL Low 8.9-11.1 [facility] Comment on above: Performed By: #### 1 8141120, 3903781, 32526603, 8881346 #### [facility] [address] [place] [address] Chloride [Moles/Vol] 107 mmol/L Normal 101-111 [facility] Comment on above: Performed By: #### 1 7699278, 4073794, 14296595, 7468950 #### [facility] [address] [place] [address] CO2 [Moles/Vol] 22 mmol/L Normal 21-31 [facility] Comment on above: Performed By: #### 1 4161572, 9356728, 35564957, 1675500 #### [facility] [address] [place] [address] Creatinine [Mass/Vol] 0.8 mg/dL Normal 0.5-1.3 [facility] Comment on above: Performed By: #### 1 5582414, 6120357, 74932933, 9662345 #### [facility] [address] [place] [address] Glucose [Mass/Vol] 105 mg/dL Normal 55-199 [facility] Comment on above: Performed By: #### 1 8306939, 7855143, 83132596, 0639635 #### [facility] [address] [place] [address] Potassium [Moles/Vol] 3.9 mmol/L Normal 3.5-5.3 [facility] Comment on above: Performed By: #### 1 1289347, 1322912, 87029244, 6924485 #### [facility] [address] [place] [address] Sodium [Moles/Vol] 136 mmol/L Normal 135-145 [facility] Comment on above: Performed By: #### 1 4876389, 7177626, 50342850, 1098110 #### [facility] [address] [place] [address] Urea nitrogen [Mass/Vol] 15 mg/dL Normal 5-21 [facility] Comment on above: Performed By: #### 1 4975453, 6128205, 69855445, 9423279 #### [facility] [address] [place] [address] CBC w/ Auto Diffon 4 Basophil Absolute 0.0 E9/L Normal 0.0-0.2 [facility] Comment on above: Performed By: #### 1 0177445, 2473203, 92837142, 8384845 #### [facility] [address] [place] [address] Basophils/100 WBC (Bld) 0.8 % Normal 0.0-2.0 [facility] Comment on above: Performed By: #### 1 2056219, 1587383, 02858087, 5133958 #### [facility] [address] [place] [address] Eos Absolute 0.1 E9/L Normal 0.0-0.5 [facility] Comment on above: Performed By: #### 1 3137671, 6000368, 51443500, 4184384 #### [facility] [address] [place] [address] Eosinophils/100 WBC (Bld) 1.7 % Normal 0.0-8.0 [facility] Comment on above: Performed By: #### 1 3559541, 8087720, 01282741, 6212261 #### [facility] [address] [place] [address] Erythrocyte distribution width (RBC) [Ratio] 13.0 % Normal 10.9-14.2 [facility] Comment on above: Performed By: #### 1 6672898, 1945099, 19237421, 4675020 #### [facility] [address] [place] [address] Hematocrit (Bld) [Volume fraction] 39.0 % Normal 34.0-46.0 [facility] Comment on above: Performed By: #### 1 3762845, 1812577, 36304918, 3604191 #### [facility] [address] [place] [address] Hemoglobin (Bld) [Mass/Vol] 13.2 g/dL Normal 12.0-16.0 [facility] Comment on above: Performed By: #### 1 6465228, 7142817, 74903022, 4251869 #### [facility] [address] [place] [address] Lymph Absolute 1.9 E9/L Normal 1.0-4.0 [facility] Comment on above: Performed By: #### 1 3011104, 5704805, 62365779, 5434003 #### [facility] [address] [place] [address] Lymphocytes/100 WBC (Bld) 32.6 % Normal 14.0-50.0 [facility] Comment on above: Performed By: #### 1 3473739, 6387508, 77142071, 8103552 #### [facility] [address] [place] [address] MCH (RBC) [Entitic mass] 30.1 pg Normal 27.0-34.0 [facility] Comment on above: Performed By: #### 1 1936017, 5930540, 52090586, 6010371 #### [facility] [address] [place] [address] MCHC (RBC) [Mass/Vol] 33.9 g/dL Normal 31.4-36.0 [facility] Comment on above: Performed By: #### 1 2576609, 6992656, 81228139, 4167480 #### [facility] [address] [place] [address] MCV (RBC) [Entitic vol] 89.0 fL Normal 80.0-100.0 [facility] Comment on above: Performed By: #### 1 7492686, 0349721, 51135028, 6826670 #### [facility] [address] [place] [address] Ritchie Absolute 0.6 E9/L Normal 0.2-1.0 [facility] Comment on above: Performed By: #### 1 6997261, 9146906, 55171501, 8814196 #### [facility] [address] [place] [address] Monocytes/100 WBC (Bld) 10.3 % Normal 4.0-14.0 [facility] Comment on above: Performed By: #### 1 3518991, 4359690, 08232886, 4356076 #### [facility] [address] [place] [address] Neutro Absolute 3.1 E9/L Normal 2.0-7.5 [facility] Comment on above: Performed By: #### 1 8311684, 0679237, 70765264, 7986203 #### [facility] [address] [place] [address] Neutro Auto 54.6 % Normal 36.0-75.0 [facility] Comment on above: Performed By: #### 1 1741368, 4119302, 44923663, 1402377 #### [facility] [address] [place] [address] Platelet 225.0 E9/L Normal 150.0-500.0 [facility] Comment on above: Performed By: #### 1 7114769, 5383188, 03727034, 1840761 #### [facility] [address] [place] [address] Platelet mean volume (Bld) [Entitic vol] 9.5 fL Normal 6.4-10.8 [facility] Comment on above: Performed By: #### 1 7736110, 1420082, 83831222, 3778154 #### [facility] [address] [place] [address] RBC 4.4 E12/L Normal 4.3-5.9 [facility] Comment on above: Performed By: #### 1 0100225, 0585612, 79261471, 5094841 #### [facility] [address] [place] [address] WBC 5.7 E9/L Normal 4.0-11.0 [facility] Comment on above: Performed By: #### 1 3506441, 1221548, 53253371, 5191127 #### [facility] [address] [place] [address] CHEMISTRYOrdered By: SYSTEM SYSTEM on 03-29-2023 Anion [...] 33.2 s Normal 25.1 - 36.5 second(s) [facility] Auto Coag Comment on above: Interpretive Data: Alayna malhotra 15 days - 4 weeks 1 - [...] the same coagulation reagent and instrumentation as [facility]. Currently there are no coagulation studies available worldwide for children to 14 days, and no normal ranges. Heparin therapeutic range (represented by Anti-Factor Xa activity of 0.2 - 0.4 U/mL) corresponds to PTT of 56.6 - 109.0 sec. INR Coag (PPP) [Relative time] 1.1 {INR} Invalid Interpretation Code [facility] Auto Coag Comment on above: Interpretive Data: I NR results are specifically intended to assess patients stabilized on long-term Anticoagulation therapy suggested INR s Less Intensive Anticoagulation 2.0 3.0 Conventional Range 3.0 4.5 PT Coag (PPP) [Time] 12.0 s Normal 9.4 - 1 2.5 second(s) [facility] Auto Coag Comment on above: Interpretive Data: [...] the same coagulation reagent and instrumentation as [facility]. Currently there are no coagulation studies available worldwide for children to 14 days, and no normal ranges. Consent for Treatmenton Consent for Treatment [id number]#1.0 0TIFF Normal [facility] HEMATOLOGYOrdered By: SYSTEM SYSTEM on 03-29-2023 [...] Normal 80.0 - 100.0 fL Remisol Heme Ritchie Absolute 0.6 E9/L Normal 0.2 - 1.0 [...] Coag (PPP) [Time] 33.2 second(s) Normal 25.1-36.5 [facility] Comment on above: Result Comment: Para meter 15 days - 4 weeks 1 - 5 months 6 - 11 months 1 - 5 years 6 - 10 years 11 - 17 years PTT Mean: 35.4 (27.6-45.6) Mean: 33.5 (24.8-40.7) Mean: 32.4 (25.1-40.7) Mean: 31.6 (24.0-39.2) Mean: 31.6 (26.9-38.7) Mean: 31.0 (24.6-38.4) Pediatric Reference ranges were obtained from a study by osvaldo Medina al. prepared from 1437 samples obtained at 7 different centers using the same coagulation reagent and instrumentation as [facility]. Currently there are no coagulation studies available worldwide for children to 14 days, and no normal ranges. Heparin therapeutic range (represented by Anti-Factor Xa activity of 0.2 - 0.4 U/mL) corresponds to PTT of 56.6 - 109.0 sec. Performed By: #### 1 4260790, 7312953, 01496829, 4921556 #### [facility] [address] [place] [address] INR Coag (PPP) [Relative time] 1.1 {INR} Invalid Interpretation Code [facility] Comment on above: Result Comment: INR results are specifically intended to assess patients stabilized on long-term Anticoagulation therapy suggested INR?s ?Less Intensive Anticoagulation? 2.0 ? 3.0 Conventional Range 3.0 ? 4.5 Performed By: #### 1 8831239, 3570793, 59526089, 3374976 #### [facility] [address] [place] [address] PT Coag (PPP) [Time] 12.0 second(s) Normal 9.4-12.5 [facility] Comment on above: Result Comment: 15 [...] ranges were obtained from a study by cristian Medina. prepared from 1437 samples obtained at 7 different centers using the same coagulation reagent and instrumentation as [facility]. Currently there are no coagulation studies available worldwide for children to 14 days, and no normal ranges. Performed By: #### 1 1223162, 4634559, 96762859, 0181046 #### [facility] [address] [place] [address] UA With Cult Reflexon 2023 Bacteria LM Ql (Urine sed) TRACE Normal Trace [facility] Comment on above: Performed By: #### 1 [id number] ####[facility] [address] [place] [address] Bilirubin Ql (U) Negative Normal Negative [facility] Comment on above: Performed By: #### 1 [id number] ####[address] [address] Clarity (U) CLEAR Normal Clear [facility] Comment on above: Performed By: #### 1 [id number] ####[address] [address] Color (U) YELLOW Normal Yellow [facility] Comment on above: Performed By: #### 1 [id number] ####[address] [address] Epithelial cells.squamous LM.HPF (Urine sed) [#/Area] 5-8 Normal 0-2 [facility] Comment on above: Performed By: #### 1 [id number] ####[facility] [address] [place] [address] Glucose Test strip (U) [Mass/Vol] Negative Normal Negative [facility] Comment on above: Performed By: #### 1 [id number] ####[facility] [address] [facility] [address] Hemoglobin Ql (U) TRACE Abnormal Negative [facility] Comment on above: Performed By: #### 1 [id number] ####[facility] [address] [facility] [address] Ketones (U) [Mass/Vol] Negative Normal Negative [facility] Comment on above: Performed By: #### 1 [id number] ####[facility] [address] [place] [address] Driscoll.plasma/Lithiu m.RBC (Bld) [Mass ratio] 4-20 Normal 0-3 [facility] Comment on above: Performed By: #### 1 [id number] ####[address] [place] [address] Nitrite Ql (U) Negative Normal Negative [facility] Comment on above: Performed By: #### 1 [id number] ####[address] [address] pH (U) 6.5 [pH] Invalid Interpretation Code 5.0-9.0 [facility] Comment on above: Performed By: #### 1 [id number] ####[address] [address] Protein (U) [Mass/Vol] Negative Normal Negative [facility] Comment on above: Performed By: #### 1 [id number] ####[address] [address] Specific gravity (U) [Rel density] 1.010 Invalid Interpretation Code 1.005-1.030 [facility] Comment on above: Performed By: #### 1 [id number] ####[address] [address] Type of Urine collection method Clean Catch Normal [facility] Comment on above: Performed By: #### 1 [id number] ####[address] [address] Urobilinogen Qn (U) 0.2 {Kellee'U}/dL Normal 0.0-1.0 [facility] Comment on above: Performed By: #### 1 [id number] ####[address] [address] WBC Auto Ql (U) Negative Normal Negative [facility] Comment on above: Performed By: #### 1 [id number] ####[address] [address] WBC LM.HPF (Urine sed) [#/Area] 0-5 Normal 0-5 [facility] Comment on above: Performed By: #### 1 [id number] ####[address] [address] URINALYSISOrdered By: Fabi Reyna on 03-29-2023 Bacteria LM Ql (Urine sed) Trace /HPF Normal Trace/HPF [facility] UA Auto SS Bilirubin Ql (U) Negative (03/29/23 11:01 AM) Normal Negative [facility] UA Auto SS Clarity (U) Clear (03/29/23 [...] AM) Normal Negative [facility] UA Auto SS Driscoll.plasma/Lithiu m.RBC (Bld) [Mass ratio] 4-20 /HPF Normal [...] [facility] UA Auto SS Urobilinogen Qn (U) 0.5716144 {Kellee'U}/dL Normal 0.0 - 1.0 EU/dL [facility] UA Auto SS WBC Auto Ql (U) Negative (03/29/23 11:01 AM) Normal Negative [facility] UA Auto SS WBC LM.HPF (Urine sed) [#/Area] 0-5 /HPF Normal 0-5/HPF [facility] UA Auto SS eGFRon 03-29-2023 eGFR 107 mL/min/1.73 m2 Normal >=59 [facility] Comment on above: Order Comment: Order added by Discern Expert. Performed By: #### 1 [id number], [id number], [id number] #### [facility] [address] [place] [address] RAD - CT Reporton 03-22-2023 RAD - CT Report [id number]. 00TIFF Normal [facility] RAD - MISCon 03-22-2023 RAD - MISC [id number]#1. 00TIFF Normal [facility] Formson 03-20-2023 Forms [id number]#1.0 0TIFF Normal [facility] Ambulatory Visit Summaryon 0 03-19-2023 Ambulatory Visit Summary SUNSHINE RYDER :2000 Visit Date:03/19/2023 Ambulatory Visit Instructions Your Diagnosis Kidney stone Abdominal pain Your Care Team Attending Physician - Viral CLAROS MD Primary Care Physician - GAYE DILL MD This Is Your Medications List [...] When: Comments: Schedule stone procedure Where: [address] [address]- Medications What How Much When Instructions Unchanged [...] ? 8 oz (237 mL) of milk, cxpfyrk-ezmlxsxvimvw-x airy milk, and calcium-fortifiedfruit juice. Calcium-fortified means [...] include: ? Spin (more content not included)... Normal [facility] Formson 03-19-2023 Forms [id number]#1.0 0TIFF [facility] Patient Educationon 03-19-19 24 Patient Education [...] ? 8 oz (237 mL) of milk, kecgdeq-byccelyzbnal-w airy milk, and calcium-fortifiedfruit juice. Calcium-fortified means [...] Spinach (cooked), rhubarb, beets, sweet potatoes, and [place] chard. ? Peanuts. ? Potato chips, zambian fries, and baked potatoes with skin on. ? Nuts and nut products. ? Chocolate. ? If you regularly take a diuretic medicine, make sure to eat at least 1 or 2 servings of fruits or vegetables that are high in potassium each day. These include: ? Avocado. ? Banana. ? [place], prune, carrot, or tomato juice. ? Baked [...] fish oil, or vitamin B6. ? Take yrfj-izt-dwgfonu and prescription medicines only as told by your health care provider. These include supplements. What foods sh (more content not included)... Normal [facility] RAD - MISCon 03-19-2023 [facility] [id number] 0TIFF Normal [facility] Urology Office/Clinic Noteon 03-19-2023 Urology Office/Clinic Note Chief Complaint F/U with [facility] HPI Staff New Pt. Pt was last seen on 12/23/2019. Pt was seen at [facility] on 01/22/23 due to left sided [...] Calculus of kidney) Pt was seen at [facility] on 01/22/23 due to left sided [...] the plan Follow-up With When Contact Information Viral CLAROS MD, URL [address] [address]- Additional Instructions: Schedule stone procedure Patient Education Dietary Guidelines to Help Prevent Kidney (more content not included)... Normal [facility] Comment on above: Result Comment: Elec tronically Signed By: Viral CLAROS MD\.br\Date and Time Signed: 03/19/23 10:22 EST\.br\Electronically Co-Signed By: Suzan Riley\.br\Date and Time Co-Signed: 03/19/23 10:19 EST ED Note-Physicianon 02-04-20 23 ED Note-Physician [id number]#1.0 0TIFF Normal [facility] PREG QUANT HCGon 05-18-2022 HCG QUANT <1 Normal [facility] Comment on above: Performed By: #### P REGQNT #### [facility] [address] [place] [address] Dr. Michael Vigil HCG RANGE SEE BELOW Normal [facility] Comment on above: Result Comment: 5-50 0.2-1 WEEK 50-500 1-2 WEEKS 100-5,000 2-3 WEEKS 500-10,000 3-4 WEEKS 1,000-50,000 4-5 WEEKS 10,000-100,000 5-6 WEEKS 15,000-200,000 6-8 WEEKS 10,000-100,000 2-3 MONTHS Performed By: #### P REGQNT #### [facility] [address] [place] [address] Dr. Michael Vigil CBC AUTO DIFFon 08-31-2021 BASO # 0.1 103/ul Normal 0.0-0.1 [facility] Comment on above: Performed By: #### C BC #### [facility] [address] [place] [address] Dr. Michael Vigil Basophils/100 WBC (Bld) 0.5 % Normal 0.2-2.0 [facility] Comment on above: Performed By: #### C BC #### [facility] [address] [place] [address] Dr. Michael Vigil EO # 0.1 103/ul Normal 0.0-0.7 [facility] Comment on above: Performed By: #### C BC #### [facility] [address] [place] [address] Dr. Michael Vigil Eosinophils/100 WBC (Bld) 1.3 % Normal 0.9-7.0 [facility] Comment on above: Performed By: #### C BC #### [facility] [address] [place] [address] Dr. Michael Vigil Erythrocyte distribution width (RBC) [Ratio] 12.5 % Normal 11.0-15.0 [facility] Comment on above: Performed By: #### C BC #### [facility] [address] [place] [address] Dr. Michael Vigil Hematocrit (Bld) [Volume fraction] 43.9 % Normal 36.0-48.0 [facility] Comment on above: Performed By: #### C BC #### [facility] [address] [place] [address] Dr. Michael Vigil Hemoglobin (Bld) [Mass/Vol] 14.7 g/dL Normal 12.0-16.0 [facility] Comment on above: Performed By: #### C BC #### [facility] [address] [place] [address] Dr. Michael Vigil IG # 0.03 10e3/ul Normal 0.00-0.03 [facility] Comment on above: Performed By: #### C BC #### [facility] [address] [place] [address] Dr. Michael Vigil IG % 0.3 % Normal 0.0-0.5 [facility] Comment on above: Performed By: #### C BC #### [facility] [address] [place] [address] Dr. Michael Vigil LYMPH # 3.0 103/ul Normal 1.2-3.8 [facility] Comment on above: Performed By: #### C BC #### [facility] [address] [place] [address] Dr. Michael Vigil Lymphocytes/100 WBC (Bld) 32.0 % Normal 20.5-60.0 [facility] Comment on above: Performed By: #### C BC #### [facility] [address] [place] [address] Dr. Michael Vigil MANUAL DIFF REQ NO Normal [facility] Comment on above: Performed By: #### C BC #### [facility] [address] [place] [address] Dr. Michael Vigil MCH (RBC) [Entitic mass] 30.2 pg Normal 26.7-34.0 [facility] Comment on above: Performed By: #### C BC #### [facility] [address] [place] [address] Dr. Michael Vigil MCHC (RBC) [Mass/Vol] 33.5 g/dL Normal 29.9-35.2 [facility] Comment on above: Performed By: #### C BC #### [facility] [address] [place] [address] Dr. Michael Vigil MCV (RBC) [Entitic vol] 90.1 fL Normal 81.0-99.0 [facility] Comment on above: Performed By: #### C BC #### [facility] [address] [place] [address] Dr. Michael Vigil MONO # 0.7 103/ul Normal 0.3-0.8 [facility] Comment on above: Performed By: #### C BC #### [facility] [address] [place] [address] Dr. Michael Vigil Monocytes/100 WBC (Bld) 7.8 % Normal 1.7-12.0 [facility] Comment on above: Performed By: #### C BC #### [facility] [address] [place] [address] Dr. Michael Vigil NEUT # 5.3 103/ul Normal 1.4-6.5 [facility] Comment on above: Performed By: #### C BC #### [facility] [address] [place] [address] Dr. Michael Vigil Neutrophils/100 WBC (Bld) 58.1 % Normal 43.0-75.0 [facility] Comment on above: Performed By: #### C BC #### [facility] [address] [place] [address] Dr. Michael Vigil Platelet mean volume (Bld) [Entitic vol] 10.3 fL Normal 9.5-13.5 [facility] Comment on above: Performed By: #### C BC #### [facility] [address] [place] [address] Dr. Michael Vigil PLT 292 103/ul Normal 150-450 [facility] Comment on above: Performed By: #### C BC #### [facility] [address] [place] [address] Dr. Michael Vigil RBC 4.87 106/ul Normal 4.20-5.40 [facility] Comment on above: Performed By: #### C BC #### [facility] [address] [place] [address] Dr. Michael Vigil WBC 9.2 103/ul Normal 4.0-11.0 [facility] Comment on above: Performed By: #### C BC #### [facility] [address] [place] [address] Dr. Michael Vigil PROF CHEM 8 (BAS METB)on Anion gap [Moles/Vol] 12.3 mmol/L Normal [facility] Comment on above: Performed By: #### B MP #### [facility] [address] [place] [address] Dr. Michael Vigil Calcium [Mass/Vol] 9.1 mg/dL Normal 8.5-10.1 [facility] Comment on above: Performed By: #### B MP #### [facility] [address] [address] [address] Michael Vigil Chloride [Moles/Vol] 106 mmol/L Normal 98-107 [facility] Comment on above: Performed By: #### B MP #### [facility] [address] [place] [address] Dr. Michael Vigil CO2 [Moles/Vol] 26.0 mmol/L Normal 21.0-32.0 [facility] Comment on above: Performed By: #### B MP #### [facility] [address] [place] [address] Dr. Michael Vigil Creatinine [Mass/Vol] 0.97 mg/dL Normal 0.55-1.02 [facility] Comment on above: Performed By: #### B MP #### [facility] [address] [place] [address] Dr. Michael Vigil EGFR-AF COMORAN >60 Normal >=60 [facility] Comment on above: Performed By: #### B MP #### [facility] [address] [place] [address] Dr. Michael Vigil EGFR-NON AF COMORAN >60 Normal >=60 [facility] Comment on above: Performed By: #### B MP #### [facility] [address] [place] [address] Dr. Michael Vigil Glucose [Mass/Vol] 96 mg/dL Normal 74-106 [facility] Comment on above: Performed By: #### B MP #### [facility] [address] [place] [address] Dr. Michael Vigil Potassium [Moles/Vol] 4.3 mmol/L Normal 3.5-5.1 [facility] Comment on above: Performed By: #### B MP #### [facility] [address] [address] [address] Michael Vigil Sodium [Moles/Vol] 140 mmol/L Normal 136-145 [facility] Comment on above: Performed By: #### B MP #### [facility] [address] [address] [address] Michael Vigil Urea nitrogen [Mass/Vol] 18.0 mg/dL Normal 6.4-19.3 [facility] Comment on above: Performed By: #### B MP #### [facility] [address] [address] [address] Michael Vigil Urea nitrogen/Creatinine [Mass ratio] 18.6 mg/mg Normal [facility] Comment on above: Performed By: #### B MP #### [facility] [address] [address] [address] Michael Vigil COVID Quick Testingon 2020 Result Negative [facility] [employer] Other Quick Strepon 02-09-2021 S. pyogenes Org specific cx Ql (Throat) Negative [employer] [facility] [employer] Other Quick Strep [facility] [employer] Other Vital Signs Date Time Vital Sign Value Performing Clinician Facility 12-13-2023 08:58-0400 Body height 160.02 cm [facility] 12-13-2023 08:58-0400 Body mass index (BMI) [Ratio] 36.8 kg/m2 [facility] 12-13-2023 08:58-0400 Body temperature 97.9 [degF] [facility] 12-13-2023 08:58-0400 Body weight 94.34 kg [facility] 12-13-2023 08:58-0400 Diastolic blood pressure 97 mm[Hg] [facility] 12-13-2023 08:58-0400 Heart rate 75 /min [facility] 12-13-2023 08:58-0400 SaO2% (BldA) [Mass fraction] 98 % [facility] 12-13-2023 08:58-0400 Systolic blood pressure 134 mm[Hg] [facility] 11-14-2023 11:37-0400 Body height 160.02 cm [facility] 11-14-2023 11:37-0400 Body mass index (BMI) [Ratio] 36.3 kg/m2 [facility] 11-14-2023 11:37-0400 Body weight 92.98 kg [facility] 11-14-2023 11:37-0400 Diastolic blood pressure 91 mm[Hg] [facility] 11-14-2023 11:37-0400 Heart rate 97 /min [facility] 11-14-2023 11:37-0400 Systolic blood pressure 152 mm[Hg] [facility] 07-17-2023 11:53-0400 Body height 160.02 cm [facility] 07-17-2023 11:53-0400 Body mass index (BMI) [Ratio] 34.2 kg/m2 [facility] 07-17-2023 11:53-0400 Body weight 87.54 kg [facility] 07-17-2023 11:53-0400 Diastolic blood pressure 100 mm[Hg] [facility] 07-17-2023 11:53-0400 Heart rate 83 /min [facility] 07-17-2023 11:53-0400 Systolic blood pressure 137 mm[Hg] [facility] 06-13-2023 13:50-0400 Blood Pressure Location Viral CLAROS [facility] 06-13-2023 13:50-0400 Body temperature 97.7 [degF] Viral CLAROS [facility] 06-13-2023 13:50-0400 Diastolic blood pressure 114 mm[Hg] Viral CLAROS [facility] 06-13-2023 13:50-0400 Heart rate 60 /min Viral CLAROS [facility] 06-13-2023 13:50-0400 Mean blood pressure 127 mm[Hg] Viral COOK [facility] 06-13-2023 13:50-0400 Respiratory rate 20 /min Viral COOK [facility] 06-13-2023 13:50-0400 SaO2% (BldA) [Mass fraction] 98 % Viral COOK [facility] 06-13-2023 13:50-0400 Systolic blood pressure 153 mm[Hg] Viral COOK [facility] 06-13-2023 12:45-0400 Blood Pressure Location Viral CLAROS [facility] 06-13-2023 12:45-0400 Body temperature 97.7 [degF] Viral COOK [facility] 06-13-2023 12:45-0400 Diastolic blood pressure 91 mm[Hg] Viral COOK [facility] 06-13-2023 12:45-0400 Diastolic blood pressure 101 mm[Hg] Viral COOK [facility] 06-13-2023 12:45-0400 Heart rate 73 /min Viral COOK [facility] 06-13-2023 12:45-0400 Heart rate 70 /min Viral COOK [facility] 06-13-2023 12:45-0400 Mean blood pressure 107 mm[Hg] Viral COOK [facility] 06-13-2023 12:45-0400 Mean blood pressure 120 mm[Hg] Viral COOK [facility] 06-13-2023 12:45-0400 Respiratory rate 18 /min Viral COOK [facility] 06-13-2023 12:45-0400 Respiratory rate 16 /min Viral CLAROS [facility] 06-13-2023 12:45-0400 SaO2% (BldA) [Mass fraction] 97 % Viral CLAROS [facility] 06-13-2023 12:45-0400 Systolic blood pressure 138 mm[Hg] Viral CLAROS [facility] 06-13-2023 12:45-0400 Systolic blood pressure 159 mm[Hg] Viral CLAROS [facility] 06-13-2023 12:30-0400 Respiratory rate 14 /min Viral CLAROS [facility] 06-13-2023 12:17-0400 Body temperature 96.98 [degF] Viral CLAROS [facility] 06-13-2023 12:10-0400 Respiratory rate 15 /min Viral CLAROS [facility] 06-13-2023 12:05-0400 Respiratory rate 16 /min Viral CLAROS [facility] 06-13-2023 09:59-0400 Mean blood pressure 123 mm[Hg] Viral CLAROS [facility] 06-13-2023 09:59-0400 Heart rate 80 /min Viral CLAROS [facility] 06-13-2023 09:58-0400 Mean blood pressure 102 mm[Hg] Viral CLAROS [facility] 05-20-2023 14:30-0400 Diastolic blood pressure 106 mm[Hg] [facility] 05-20-2023 14:30-0400 Heart rate 69 /min [facility] 05-20-2023 14:30-0400 Mean blood pressure 119 mm[Hg] [facility] 05-20-2023 14:30-0400 Respiratory rate 20 /min [facility] 05-20-2023 14:30-0400 SaO2% (BldA) [Mass fraction] 98 % [facility] 05-20-2023 14:30-0400 Systolic blood pressure 144 mm[Hg] [facility] 05-20-2023 14:00-0400 Diastolic blood pressure 110 mm[Hg] [facility] 05-20-2023 14:00-0400 Heart rate 70 /min [facility] 05-20-2023 14:00-0400 Mean blood pressure 121 mm[Hg] [facility] 05-20-2023 14:00-0400 Respiratory rate 18 /min [facility] 05-20-2023 14:00-0400 SaO2% (BldA) [Mass fraction] 99 % [facility] 05-20-2023 14:00-0400 Systolic blood pressure 142 mm[Hg] [facility] 05-20-2023 13:00-0400 Diastolic blood pressure 98 mm[Hg] [facility] 05-20-2023 13:00-0400 Mean blood pressure 113 mm[Hg] [facility] 05-20-2023 11:36-0400 Body temperature 97.88 [degF] [facility] 05-20-2023 11:36-0400 Heart rate 82 /min [facility] 04-23-2023 15:03-0500 Body height 160.02 cm [facility] 04-23-2023 15:03-0500 Body mass index (BMI) [Ratio] 35.6 kg/m2 [facility] 04-23-2023 15:03-0500 Body weight 91.28 kg [facility] 04-23-2023 15:03-0500 Diastolic blood pressure 92 mm[Hg] [facility] 04-23-2023 15:03-0500 Heart rate 71 /min [facility] 04-23-2023 15:03-0500 SaO2% (BldA) [Mass fraction] 97 % [facility] 04-23-2023 15:03-0500 Systolic blood pressure 127 mm[Hg] [facility] 04-18-2023 10:48-0500 SaO2% (BldA) [Mass fraction] 98 % Viral CLAROS [facility] 04-18-2023 10:41-0500 Heart rate 53 /min Viral CLAROS [facility] 04-18-2023 10:41-0500 SaO2% (BldA) [Mass fraction] 99 % Viral CLAROS [facility] 04-18-2023 10:41-0500 Diastolic blood pressure 85 mm[Hg] Viral CLAROS [facility] 04-18-2023 10:41-0500 Mean blood pressure 104 mm[Hg] Viral CLAROS [facility] 04-18-2023 10:41-0500 Systolic blood pressure 140 mm[Hg] Viral CLAROS [facility] 04-18-2023 10:40-0500 Respiratory rate 18 /min Viral CLAROS [facility] 04-18-2023 10:35-0500 Blood Pressure Location Viral CLAROS [facility] 04-18-2023 10:35-0500 Body temperature 97.88 [degF] Viral CLAROS [facility] 04-18-2023 10:35-0500 Diastolic blood pressure 101 mm[Hg] Viral CLAROS [facility] 04-18-2023 10:35-0500 Heart rate 59 /min Viral CLAROS [facility] 04-18-2023 10:35-0500 Mean blood pressure 119 mm[Hg] Viral COOK [facility] 04-18-2023 10:35-0500 Respiratory rate 15 /min Viral CLAROS [facility] 04-18-2023 10:35-0500 SaO2% (BldA) [Mass fraction] 97 % Viral CLAROS [facility] 04-18-2023 10:35-0500 Systolic blood pressure 154 mm[Hg] Viral CLAROS [facility] 04-18-2023 10:20-0500 Blood Pressure Location Viral CLAROS [facility] 04-18-2023 10:20-0500 Diastolic blood pressure 87 mm[Hg] Viral CLAROS [facility] 04-18-2023 10:20-0500 Heart rate 66 /min Viral CLAROS [facility] 04-18-2023 10:20-0500 Mean blood pressure 107 mm[Hg] Viral COOK [facility] 04-18-2023 10:20-0500 Respiratory rate 20 /min Viral CLAROS [facility] 04-18-2023 10:20-0500 Systolic blood pressure 146 mm[Hg] Viral COOK [facility] 04-18-2023 10:15-0500 Blood Pressure Location Viral COOK [facility] 04-18-2023 10:15-0500 Mean blood pressure 120 mm[Hg] Viral COOK [facility] 04-18-2023 10:15-0500 Respiratory rate 11 /min Viral COOK [facility] 04-18-2023 10:07-0500 Body temperature 97.88 [degF] Viral COOK [facility] 04-18-2023 10:00-0500 Respiratory rate 13 /min Viral COOK [facility] 04-18-2023 09:55-0500 Respiratory rate 15 /min Viral COOK [facility] 04-18-2023 07:52-0500 Mean blood pressure 101 mm[Hg] Viral COOK [facility] 04-18-2023 07:51-0500 Body temperature 97.52 [degF] Viral CLAROS [facility] 04-18-2023 07:51-0500 Mean blood pressure 110 mm[Hg] Viral COOK [facility] 03-29-2023 10:57-0500 Diastolic blood pressure 91 mm[Hg] Viral COOK [facility] 03-29-2023 10:57-0500 Heart rate 79 /min Viral COOK [facility] 03-29-2023 10:57-0500 Mean blood pressure 107 mm[Hg] Viral COOK [facility] 03-29-2023 10:57-0500 Systolic blood pressure 139 mm[Hg] Viral COOK [facility] 03-29-2023 10:56-0500 Heart rate 76 /min Viral COOK [facility] 03-29-2023 10:56-0500 SaO2% (BldA) [Mass fraction] 97 % Viral COOK [facility] 03-29-2023 10:56-0500 Diastolic blood pressure 104 mm[Hg] Viral CLAROS [facility] 03-29-2023 10:56-0500 Mean blood pressure 119 mm[Hg] Viral CLAROS [facility] 03-29-2023 10:56-0500 Systolic blood pressure 150 mm[Hg] Viral CLAROS [facility] 03-19-2023 14:47-0500 Body mass index (BMI) [Ratio] 36.46 kg/m2 Ramy Cong DO Work Phone: [facility] 03-19-2023 14:47-0500 Body weight 93.35 kg Ramy Cong DO Work Phone: [facility] 03-19-2023 14:47-0500 Diastolic blood pressure 82 mm[Hg] Ramy Cong DO Work Phone: [facility] 03-19-2023 14:47-0500 Systolic blood pressure 120 mm[Hg] Ramy Cong DO Work Phone: [facility] 03-19-2023 09:25-0500 Blood Pressure Location Viral CLAROS [facility] 03-19-2023 09:25-0500 Diastolic blood pressure 84 mm[Hg] Viral CLAROS [facility] 03-19-2023 09:25-0500 Systolic blood pressure 130 mm[Hg] Viral COOK [facility] 01-29-2023 08:30-0500 Body weight 91.17 kg Gaye Dill Other [employer] Other 01-29-2023 08:30-0500 Diastolic blood pressure 84 mm[Hg] Gaye Dill Other [employer] Other 01-29-2023 08:30-0500 Systolic blood pressure 139 mm[Hg] Gaye Dill Other [employer] Other 07-18-2022 11:45-0400 Body height 160.02 cm Gaye Dill Other [employer] Other 07-18-2022 11:45-0400 Body mass index (BMI) [Ratio] 32.41 kg/m2 Gaye Dill Other [employer] Other 07-18-2022 11:45-0400 Body weight 83.01 kg Gaye Dill Other [employer] Other 07-18-2022 11:45-0400 Diastolic blood pressure 86 mm[Hg] Gaye Dill Other [employer] Other 07-18-2022 11:45-0400 Systolic blood pressure 145 mm[Hg] Gaye Dill Other [employer] Other 06-25-2022 15:45-0400 Body height 160.02 cm Gaye Dill Other [employer] Other 06-25-2022 15:45-0400 Body mass index (BMI) [Ratio] 31.7 kg/m2 Gaye Dill Other [employer] Other 06-25-2022 15:45-0400 Body weight 81.19 kg Gaye Dill Other [employer] Other 06-25-2022 15:45-0400 Diastolic blood pressure 80 mm[Hg] Gaye Dill Other [employer] Other 06-25-2022 15:45-0400 SaO2% (BldA) [Mass fraction] 99 % Gaye Dill Other [employer] Other 06-25-2022 15:45-0400 Systolic blood pressure 132 mm[Hg] Gaye Dill Other [employer] Other 02-09-2021 17:45-0500 Body height 160.02 cm Columba Fernandes Other [employer] Other 02-09-2021 17:45-0500 Body mass index (BMI) [Ratio] 33.65 kg/m2 Columba Fernandes Other [employer] Other 02-09-2021 17:45-0500 Body temperature 97.3 [degF] Columba Fernandes Other [employer] Other 02-09-2021 17:45-0500 Body weight 86.18 kg Columba Fernandes Other [employer] Other 02-09-2021 17:45-0500 Respiratory rate 18 /min Columba Fernandes Other [employer] Other 02-09-2021 17:45-0500 SaO2% (BldA) [Mass fraction] 99 % Columba Fernandes Other [employer] Other Encounters Encounter Date Encounter Type Care Provider Facility Start: 11-25-2024 ambulatory Viral CLAROS Facility :[facility] Start: 12-13-2023 End: 12-13-2023 ambulatory [facility] Work Phone: Start: 12-13-2023 End: 12-13-2023 Patient encounter procedure [facility] Work Phone: Start: 11-20-2023 End: 11-20-2023 ambulatory Viral CLAROS Facility:[facility] Start: 11-20-2023 End: 11-20-2023 Patient encounter procedure Viral CLAROS [facility] Start: 11-19-2023 End: 11-19-2023 ambulatory VIRAL CLAROS [facility] Start: 11-14-2023 End: 11-14-2023 ambulatory [facility] Work Phone: Start: 11-14-2023 End: 11-14-2023 Patient encounter procedure [facility] Work Phone: Start: 11-04-2023 End: 11-04-2023 Emergency department patient visit GAYE DILL [facility] Start: 07-17-2023 End: 07-17-2023 ambulatory [facility] Work Phone: Start: 07-17-2023 End: 07-17-[address] [facility] Work Phone: Start: 07-02-2023 End: 07-02-2023 ambulatory RAMY ORTEGAO Not Available Start: 06-13-2023 End: 06-13-2023 Admission to same day surgery center Viral CLAROS [facility] Start: 06-13-2023 End: 06-13-2023 ambulatory Viral CLAROS Facility:[facility] Start: 06-05-2023 End: 06-05-2023 ambulatory Viral CLAROS Facility:[facility] Start: 06-05-2023 End: 06-05-2023 Patient encounter procedure Viral CLAROS [facility] Start: 05-28-2023 End: 05-28-2023 ambulatory VELMA [facility] Start: 05-20-2023 End: 05-20-2023 Emergency department patient visit Lawson Carbone [facility] Start: 05-19-2023 End: 05-19-2023 Emergency department patient visit GAYE Hatch FUENTES [facility] Start: 05-17-2023 End: 05-18-2023 Emergency department patient visit ROBERT BURGESS [facility] Start: 05-10-2023 End: 05-31-2023 Pre-admission assessment Viral CLAROS [facility] Start: 05-10-2023 End: 05-10-2023 ambulatory RAMY CONG Not Available Start: 04-26-2023 Non-patient / Non-visit [facility] Work Phone: Start: 04-23-2023 End: 04-23-[address] [facility] Work Phone: Start: 04-18-2023 End: 04-18-2023 Admission to same day surgery center Viral CLAROS [facility] Start: 04-18-2023 End: 04-18-2023 ambulatory Viral CLAROS Facility:[facility] Start: 03-29-2023 End: 03-29-2023 ambulatory Viral CLAROS Facility:[facility] Start: 03-29-2023 End: 03-29-2023 Patient encounter procedure Viral CLAROS [facility] Start: 03-19-2023 End: 03-19-2023 ambulatory RAMY CONG Not Available Start: 03-19-2023 End: 03-19-2023 Patient encounter procedure Ramy Cong DO Work Phone: [facility] Start: 03-19-2023 End: 03-19-2023 Periodic preventive med est patient 18-39 yrs Ramy Gar DO Work Phone: [facility] Comment on above: Well woman exam with routine gynecological exam Start: 03-19-2023 End: 03-19-2023 ambulatory Viral CLAROS Facility:[facility] Start: 03-19-2023 End: 03-19-2023 Patient encounter procedure Viral CLAROS [facility] Start: 03-11-2023 End: 03-11-2023 ambulatory Gaye Dill Other [employer] Other Start: 03-11-2023 Telephone encounter Gaye Dill [facility] Start: 02-22-2023 End: 02-22-2023 ambulatory Gaye Dill Other [employer] Other Start: 02-22-2023 Telephone encounter Gaye Dill [facility] Start: 02-21-2023 End: 02-21-2023 ambulatory Gaye Dill Other [employer] Other Start: 02-21-2023 Telephone encounter Gaye Dill [facility] Start: 01-29-2023 End: 01-29-2023 ambulatory Gaye Dill Other [employer] Other Start: 01-29-2023 Office outpatient vi sit 25 minutes Gaye Dill [facility] Start: 11-16-2022 End: 11-16-2022 ambulatory Gaye Dill Other [employer] Other Start: 11-16-2022 Telephone encounter Gaye Dill [facility] Start: 08-27-2022 End: 08-27-2022 ambulatory Gaye Dill Other [employer] Other Start: 08-27-2022 Telephone encounter Gaye Dill [facility] Start: 08-23-2022 End: 08-23-2022 ambulatory Gaye Dill Other [employer] Other Start: 08-23-2022 Telephone encounter Gaye Dill [facility] Start: 07-18-2022 End: 07-18-2022 ambulatory Gaye Dill Other [employer] Other Start: 07-18-2022 Office outpatient vi sit 15 minutes Gaye Dill [facility] Start: 06-25-2022 End: 06-25-2022 ambulatory Gaye Dill Other [employer] Other Start: 06-25-2022 Office outpatient vi sit 10 minutes Gaye Dill [facility] Start: 05-18-2022 Telephone encounter Gaye Dill [facility] Start: 05-18-2022 End: 05-19-2022 ambulatory GAYE Hatch FUENTES [employer] Other Start: 04-10-2022 End: 04-10-2022 ambulatory Gaye Dill Other [employer] Other Start: 04-10-2022 Telephone encounter Gaye Dill [facility] Start: 04-02-2022 End: 04-02-2022 ambulatory Gaye Dill Other [employer] Other Start: 04-02-2022 Telephone encounter Gaye Dill [facility] Start: 03-30-2022 End: 03-30-2022 ambulatory Gaye Dill Other [employer] Other Start: 03-30-2022 Telephone encounter Gaye Dill [facility] Start: 03-14-2022 ambulatory GAYE Hatch FUENTES Facility : Start: 02-26-2022 End: 02-26-2022 ambulatory Gaye Dill Other [employer] Other Start: 02-26-2022 Telephone encounter Gaye Dill [facility] Start: 08-31-2021 End: 08-31-2021 ambulatory GAYE DILL Facility:[facility] Start: 02-09-2021 End: 02-09-2021 ambulatory Columba Fernandes Other [employer] Other Start: 02-09-2021 Office outpatient vi sit 15 minutes Columba Fernandes [facility] Start: 12-02-2018 Well child visit Gaye Dill Other [employer] Other Start: 08-12-2018 End: 08-12-2018 Emergency department patient visit [facility] Procedures Date Procedure Procedure Detail Performing Clinician Start: 06-13-2023 Transurethral cystoscopy Viral [employer] Comment on above: Left stent removal, stone extraction, stone basket and homium laser Start: 05-28-2023 Follow-up visit Follow-up VELMA CHAND Start: 04-18-2023 Extracorporeal shock wave lithotripsy of calculus of kidney Viral [employer] Start: 08-12-2018 POST OP SHOE Start: 03-14-2018 Health examination o f sub-group Gaye Dill Other End: 07-23-2018 screening Gaye Dill Other End: 08-20-2018 Diabetes mellitus screening Gaye Dill Other Insertion of intraut erine contraceptive device Gaye Dill Other Lithotripsy Astrit Haclarence Placement of stent Stent placement 2 Astr it Haclarence Comment on above: stent in ureter visit Gaye Dill Other End: 06-29-2021 Removal of intrauterine device Gaye Dill Other Tonsillectomy Viral [employer] Tooth structure (bod y structure) [facility]al [employer] Plan of Treatment Date Care Activity Detail Author Start: 05-03-2023 End: 05-03-2023 Clinical Support 05/03/2023 10:10 AM EDT Clinical Support [facility] [address] [place] [address] [place] [address] [facility] Cytology Cervical or vaginal smear or scraping study Pap Smear Pathology and Cytology Routine Well woman exam with routine gynecological exam Ordered: 03/19/2023 [facility] Work Phone: Comment on above: Ordered: 03/19/2023 Immunizations Immunization Date Immunization Notes Care Provider Barney lemus 11-02-2014 diphtheria, tetanus toxoids and acellular pertussis vaccine, unspecified formulation Gaye Dill Other [facility] 10-09-2007 DTaP, unspecified formulation Viral [employer] [facility] 10-09-2007 poliovirus vaccine, unspecified formulation ViralGoombal [facility] 10-09-2007 varicella virus vaccine Jarvis [employer]erNeuralitic Systems [facility] 09-27-2005 diphtheria, tetanus toxoids and acellular pertussis vaccine ViralGoombal [facility] 09-27-2005 measles, mumps and rubella virus vaccine ViralGoombal [facility] 11-24-2003 DTaP, unspecified formulation ViralGoombal [facility] 11-24-2003 measles, mumps and rubella virus vaccine Formabilio [facility] 11-24-2003 poliovirus vaccine, unspecified formulation ViralGoombal [facility] 11-24-2003 varicella virus vaccine Jarvis wallerNeuralitic Systems [facility] 2002 DTaP, unspecified formulation Viral CLAROS [facility] 2002 poliovirus vaccine, unspecified formulation Viral CLAROS [facility] 2002 DTaP, unspecified formulation Viral CLAROS [facility] 2002 poliovirus vaccine, unspecified formulation Viral CLAROS [facility] Payers Date Payer Category Payer Medicaid [employer] [facility] [id number] 2022-Present [address] [address] [place] [address] [id number] 2022 Unknown [employer] [id number] 2022-Present [address] [place] [address] [id number] 2018 Private Health Insurance [id number] 2002 Unknown [id number] 2.16.840.1.045881.3.579.2. 593 2002 Unknown [id number] 2.16.840.1.723460.3.579.2. 1259 2002 Unknown [id number] 2.16.840.1.208220.3.579.2. 1259 2002 Unknown [id number] 2.16.840.1.103613.3.579.2. 1259 2002 Unknown [id number] 2.16.840.1.606104.3.579.2. 1286 2002 Unknown [id number] 2.16.840.1.485041.3.579.2. 1286 2002 Unknown [id number] 2.16.840.1.808519.3.579.2. 1286 2002 Unknown [id number] 2.16.840.1.652228.3.579.2. 1286 2002 Unknown [id number] 2.16.840.1.250806.3.579.2. 1286 2002 Unknown [id number] 2.16.840.1.010046.3.579.2. 727 2002 Unknown [id number] 2.16.840.1.767642.3.579.2. 727 2002 Unknown [id number] 2.16.840.1.799298.3.579.2. 727 2002 Unknown [id number] 2.16.840.1.689727.3.579.2. 727 2002 Unknown [id number] 2.16.840.1.812931.3.579.2. 727 2002 Unknown [id number] 2.16.840.1.284486.3.579.2. 727 2002 Unknown [id number] 2.16.840.1.164232.3.579.2. 727 2002 Unknown [id number] 2.16.840.1.235600.3.579.2. 727 1980 Unknown [id number] 2.16.840.1.089332.3.579.2. 173 1980 Unknown [id number] 2.16.840.1.444187.3.579.2. 593 1980 Unknown [id number] 2.16.840.1.404406.3.579.2. 593 1980 Unknown [id number] 2.16.840.1.251341.3.579.2. 727 1959 Unknown [id number] 2.16.840.1.186538.19 1959 Unknown [id number] 2.16.840.1.096657.19 Social History Date Type Detail Facility Start: 08-27-2022 Sex Assigned At F [facility] Start: 08-27-2022 End: 03-19-2023 Tobacco smoking status Never smoked tobacco (finding) [facility] Tobacco smoking status Never [facility] Start: 08-27-2022 Tobacco use and exposure Smokeless tobacco non-user [facility] Start: 03-19-2023 Alcohol intake Lifetime non-d charla (finding) [facility] Start: 08-27-2022 History of Social function [facility] Start: 2002 Sex Assigned At Not on file [facility] Tobacco Current vaping o r e-cigarette use Smokeless Tobacco Use:. Vaping [facility] Tobacco smoking status No Smokin g Status Entered [facility] Start: 2002 Sex Assigned At Female F [facility] Medical Equipment Procedure Code Equipment Code Equipment Origin al Text Equipment Identifier Dates CYSTOSCOPY STENT INSERTION Viral CLAROS MD 04/18/23 Unknown Ureter L FDA Start: 04-18-2023 CYSTOSCOPY STENT INSERTION Viral CLAROS MD 04/18/23 Unknown Ureter L FDA Start: 04-18-2023 CYSTOSCOPY STENT INSERTION Viral CLAROS MD 04/18/23 Unknown Ureter L FDA Start: 04-18-2023 CYSTOSCOPY STENT INSERTION Viral CLAROS MD 04/18/23 Unknown Ureter L FDA Start: 04-18-2023 CYSTOSCOPY STENT INSERTION Viral CLAROS MD 04/18/23 Unknown Ureter L FDA Start: 04-18-2023 CYSTOSCOPY STENT INSERTION Viral CLAROS MD 04/18/23 Unknown Ureter L FDA Start: 04-18-2023 Functional Status Date Assessment Result Facility 11-20-2023 Functional Status N/A [facility] 06-05-2023 Functional Status N/A [facility] 06-03-2023 Functional Status No [facility] 05-20-2023 Functional Status N/A [facility] 03-29-2023 Functional Status No [facility] 03-19-2023 Functional Status N/A [facility] Clinical Notes 02-09-2021 to 11-20-2023 Radiology Note Date & Type Note Facility 11-20-2023 Hospital Discharg e instructions Patient Education 11/20/2023 15:35:40 Dietary Guidelines to Help Prevent Kidney Stones [...] calcium at each meal. Foods that contain 200 500 mg of calcium a serving include: ?8 oz (237 mL) of milk, uzxwhtl-jllmortmdklp-qskgd milk, and calcium-fortifiedfruit juice. Calcium-fortified means that [...] to add their own salt to taste. Use vegetable protein, such as beans, textured vegetable protein (TVP), or tofu, instead of meat in pasta, casseroles, and soups. Meal planning Eat less salt, if told by your dietitian. To do this: ?Avoid eating processed or pre-made food. ?Avoid eating fast food. Eat less animal protein, including cheese, meat, poultry, or fish, if told by your dietitian. To do this: ?Limit the number of times you have [...] ?Spinach (cooked), rhubarb, beets, sweet potatoes, and [place] Citizen chard. ?Peanuts. ?Potato chips, zambian fries, and baked potatoes with skin on. ?Nuts and nut products. ?Chocolate. If you regularly take a diuretic medicine, make sure to eat at least 1 or 2 servings of fruits or vegetables that are high in potassium each day. These include: ?Avocado. ?Banana. ?[place], prune, carrot, or tomato juice. ?Baked potato. [...] magnesium, fish oil, or vitamin B6. Take deqg-cui-hnhamyx and prescription medicines only as told by [...] Casseroles. Pizza. Lasagna. Frozen meals. Potato chips. Burkinan fries. The items listed above may not be a complete list of foods and beverages you should limit. Contact a dietitian for more information. What foods should I avoid? Talk to your dietitian about specific foods you should avoid based on the type of kidney stones you have and your overall health. Fruits Grapefruit. The item listed above may not be a complete list of foods and beverages you should avoid. Contact a dietitian for more information. Summary Kidney stones are [...] provider. Document Revised: 05/17/2022 Document Reviewed: 05/17/2022 [employer] Patient Education 2023 [employer]. Follow Up Care 10/28/2023 14:26:35 With:SHAWN COOK, Viral Catalan, URL Address: [address] [place] [address]- When: Unknown [facility] 11-20-2023 Note Patient Education Nephrology Dietary Guidelines to Help [...] ? 8 oz (237 mL) of milk, cuuzzom-zuoywbfgpzam-bktbi milk, and calcium-fortifiedfruit juice. Calcium-fortified means that [...] Spinach (cooked), rhubarb, beets, sweet potatoes, and [place] Citizen chard. ? Peanuts. ? Potato chips, zambian fries, and baked potatoes with skin on. ? Nuts and nut products. ? Chocolate. ? If you regularly take a diuretic medicine, make sure to eat at least 1 or 2 servings of fruits or vegetables that are high in potassium each day. These include: ? Avocado. ? Banana. ? [place], prune, carrot, or tomato juice. ? Baked [...] fish oil, or vitamin B6. ? Take xzcb-sku-soeoxve and prescription medicines only as told by your health care provider. These include suppleme (more content not included)... [facility] 06-13-2023 Hospital Discharg e instructions Patient Education 06/13/2023 13:55:17 Post Op Patient Instructions - FT (Custom) (CUSTOM) 06/13/2023 11:26:22 Weqh-Sdin-pe Utereroscopy,Lithotripsy, Stone Extraction, Stent Placement (Custom) [facility] [place] [place] Dr. Viral Ramsay Post-operative Instructions for Ureteroscopy, Laser Lithotripsy, Stone Extraction and Stent Placement There are no incisions or dressings to be concerned with, as the procedure was performed inside the urinary system. For 24 hours after surgery: No driving or operating machinery Do not make important decisions Do not consume alcohol, sleeping pills Stent Placement You may have a stent which spans the distance between your bladder and your kidney, allowing urine to pass through. It prevents blockage from swelling, kidney stones in ureter (tube connecting the kidney to the bladder), or scars. The presence of the stent may cause: Back or side pain, especially with urination Frequent or urgent urination Bladder pressure or pain Blood in urine You may pass stone debris or small blood clots, which is expected. Drinking plenty of water to dilute the urine may help. If there is a thread coming out of urinary channel, be careful not to accidently pull on this, as it is attached to the stent. The stent will most likely be removed in the office during a short procedure in which a scope is placed into the bladder, the stent is grasped and removed. At other times the stent may need to stay longer, either in preparation for other procedures or for other reasons. If it is to remain senior living, however, changes of the stent are required (about every 3-4 months). Diet You may resume your normal diet, but you may want to start slowly and avoid spicy food, caffeine, carbonated beverages and alcohol, especially if you have a stent. Your diet and fluid intake may make irritation from the stent worse. Activity You may resume your normal activities, although you should take it easy on the day of the procedure. Minimizing activity may decrease the back discomfort and irritation from the stent, if present. Medications You may resume your home medications unless instructed otherwise. Hold aspirin, ibuprofen, Coumadin (warfarin) and other blood thinners until your office visit (we will discuss when to resume these medications) Take your prescribed medications as directed, including your antibiotics. You may also be given a prescription for pain medicine or medicines to help with the bladder irritation from stent, if present. Things to watch for which would require an Emergency Room Visit (or call 911) (This is not a complete list) Fever over 101.5 degrees, with or without chills Severe bleeding Severe drug reactions with itching, hives, rash, or severe flank pain Tenderness or swelling or the calves, chest pain, or shortness of breath Please call the office to arrange for your post-operative appointment (with XRAY) [phone] Follow Up Care 05/10/2023 13:05:16 With:Viral CLAROS Address: [address] [facility] [address] [place] [phone] Business (1) When: Unknown Comments:As we discussed, my plan was to not place a stent but I felt that 1 was needed for a temporary timeframe. You can actually remove this by removing the tape and pulling on the thread. The stent should be then removed without problem.I like to see her back in about 6 months or so with an abdominal x-ray prior. My office should arrange for an order to be sent to what ever facility you would like prior to that visit.I did send a prescription for antibiotics to your pharmacy. [facility] 06-13-2023 Evaluation + Plan note Diagnostic Tests PendingCalculi Analysis Urinary 06/13/23 Future Scheduled TestsXR Abdomen 1 View 04/19/23 [facility] 06-05-2023 Hospital Discharg e instructions Patient Education 06/05/2023 08:46:07 Lithotripsy Lithotripsy Lithotripsy is a treatment that can help break up kidney stones that are too large to pass on their own. This is a nonsurgical procedure that crushes a kidney stone with shock waves. These shock waves pass through your body and focus on the kidney stone. They cause the kidney stone to break up into smaller pieces while it is still in the urinary tract. The smaller pieces of stone can pass more easily out of your body in the urine. Tell a health care provider about: Any allergies you have. All medicines you are taking, including vitamins, herbs, eye drops, creams, and kpuk-kmu-zfdvdsc medicines. Any problems you or family members have had with anesthetic medicines. Any blood disorders you have. Any surgeries you have had. Any medical conditions you have. Whether you are or may be . What are the risks? Generally, this is a safe procedure. However, problems may occur, including: Infection. Bleeding from the kidney. Bruising of the kidney or skin. Scarring of the kidney, which can lead to: ?Increased blood pressure. ?Poor kidney function. ?Return (recurrence) of kidney stones. Damage to other structures or organs, such as the liver, colon, spleen, or pancreas. Blockage (obstruction) of the tube that carries urine from the kidney to the bladder (ureter). Failure of the kidney stone to break into pieces (fragments). What happens before the procedure? Staying hydrated Follow instructions from your health care provider about hydration, which may include: Up to 2 hours before the procedure you may continue to drink clear liquids, such as water, clear fruit juice, black coffee, and plain tea. Eating and drinking restrictions Follow instructions from your health care provider about eating and drinking, which may include: 8 hours before the procedure stop eating heavy meals or foods, such as meat, fried foods, or fatty foods. 6 hours before the procedure stop eating light meals or foods, such as toast or cereal. 6 hours before the procedure stop drinking milk or drinks that contain milk. 2 hours before the procedure stop drinking clear liquids. Medicines Ask your health care provider about: Changing or stopping your regular medicines. This is especially important if you are taking diabetes medicines or blood thinners. Taking medicines such as aspirin and ibuprofen. These medicines can thin your blood. Do not take these medicines unless your health care provider tells you to take them. Taking ahjg-aao-jcahrbh medicines, vitamins, herbs, and supplements. Tests You may have tests, such as: Blood tests. Urine tests. Imaging tests, such as a CT scan. General instructions Plan to have someone take you home from the hospital or clinic. If you will be going home right after the procedure, plan to have someone with you for 24 hours. Ask your health care provider what steps will be taken to help prevent infection. These may include washing skin with a germ-killing soap. What happens during the procedure? An IV will be inserted into one of your veins. You will be given one or more of the following: ?A medicine to help you relax (sedative). ?A medicine to make you fall asleep (general anesthetic). A water-filled cushion may be placed behind your kidney or on your abdomen. In some cases, you may be placed in a tub of lukewarm water. Your body will be positioned in a way that makes it easy to target the kidney stone. An X-ray or ultrasound exam will be done to locate your stone. Shock waves will be aimed at the stone. If you are awake, you may feel a tapping sensation as the shock waves pass through your body. A flexible tube with holes in it (stent) may be placed in the ureter. This will help keep urine flowing from the kidney if the fragments of the stone have been blocking the ureter. The procedure may vary among health care providers and hospitals. What happens after the procedure? You may have an X-ray to see whether the procedure was able to break up the kidney stone and how much of the stone has passed. If large stone fragments remain after treatment, you may need to have a second procedure at a later time. Your blood pressure, heart rate, breathing rate, and blood oxygen level will be monitored until you leave the hospital or clinic. You may be given antibiotics or pain medicine as needed. If a stent was placed in your ureter during surgery, it may stay in place for a few weeks. You may need to strain your urine to collect pieces of the kidney stone for testing. You will need to drink plenty of water. If you were given a sedative during the procedure, it can affect you for several hours. Do not drive or operate machinery until your health care provider says that it is safe. Summary Lithotripsy is a treatment that can help break up kidney stones that are too large to pass on their own. Lithotripsy is a nonsurgical procedure that crushes a kidney stone with shock waves. Generally, this is a safe procedure. However, problems may occur, including damage to the kidney or other organs, infection, or obstruction of the tube that carries urine from the kidney to the bladder (ureter). You may have a stent placed in your ureter to help drain your urine. This stent may stay in place for a few weeks. After the procedure, you will need to drink plenty of water. You may be asked to strain your urine to collect pieces of the kidney stone for testing. This information is not intended to replace advice given to you by your health care provider. Make sure you discuss any questions you have with your health care provider. Document Revised: 01/01/2022 Document Reviewed: 10/09/2021 [employer] Patient Education 2022 [employer]. Follow Up Care 06/05/2023 08:12:19 With:SHAWN COOK, Viral Catalan, URL Address: [address] [place] [address] [place], [place] [id number]- When: Unknown [facility] 06-03-2023 Note [id number] [facility] 05-28-2023 Note Cardiology Clinic No te Chief Complaint: Palpitations, HTN HPI: Sunshine Ryder is a 23 y.o. female with a past medical history including gestational hypertension who was referred to Cardiology clinic for evaluation of palpitations and hypertension. Patient reports symptoms of palpitations for quite some time. She reports some associated dyspnea on exertion. No additional complaints or concerns. Patient adamantly denies any chest pain, syncope, LE edema, orthopnea, PND, or bleeding. Patient denies any previous history of CVA, PVD, DM, HTN, Depressed LVEF, and CAD. Cardiology ROS: 10 point ROS is performed and is negative unless otherwise specified in HPI. Past Medical History She has no past medical history on file. Surgical History She has no past surgical history on file. Social History She reports that she has never smoked. She has been exposed to tobacco smoke. She does not have any smokeless tobacco history on file. She reports that she does not currently use alcohol. She reports current drug use. Drug: Marijuana. Family History Family History Problem Relation Name Age of Onset Hypertension Mother Heart attack Maternal Grandmother Heart attack Maternal Grandfather Stroke Maternal Grandfather Medications Current Outpatient Medications on File Prior to Visit Medication Sig Dispense Refill amphetamine-dextroamphetamine XR (Adderall XR) 15 mg 24 hr capsule Take 15 mg by mouth 2 times daily. Do not crush or chew. famotidine (Pepcid) 20 mg tablet Take 20 mg by mouth at bedtime. metoprolol succinate XL (Toprol-XL) 25 mg 24 hr tablet Take 25 mg by mouth in the morning. Do not crush or chew. oxybutynin (Ditropan) 5 mg tablet Take 5 mg by mouth in the morning and at bedtime. SUMAtriptan (Imitrex) 100 mg tablet Take 100 mg by mouth 2 times daily. tamsulosin (Flomax) 0.4 mg 24 hr capsule Take 0.4 mg by mouth in the morning. topiramate (Topamax) 25 mg tablet Take 25 mg by mouth in the morning and at bedtime. No current facility-administered medications on file prior to visit. Allergies Codeine Physical Exam VITAL SIGNS: BP 124/90 (BP Location: Left arm, Patient Position: Sitting, BP Cuff Size: Adult) Pulse 83 Resp 12 Ht 1.6 m (5' 3 ) SpO2 98% BMI 32.95 kg/m??? Constitutional: Well developed, Well nourished, No acute distress, Non-toxic appearance. HENT: Normocephalic, Atraumatic, Bilateral external ears have normal appearance, Nose appears normal, nares are patent. Eyes: PERRLA, EOMI, Conjunctiva normal, No discharge. Neck: Normal range of motion, No tenderness, Supple, No stridor. No cervical lymphadenopathy noted. Cardiovascular: Normal heart rate, Normal rhythm, No murmurs, No rubs, No gallops. Thorax & Lungs: Normal breath sounds, No respiratory distress, No wheezing, No chest tenderness to palpation. Abdomen: Bowel sounds normal, Soft, Nontender, No masses, No pulsatile masses. Skin: Warm, Dry, No erythema, No rash. Back: No tenderness, No CVA tenderness. Extremities: Intact distal pulses, No edema, No tenderness, No cyanosis, No clubbing. Musculoskeletal: Grossly normal strength in extremities Neurologic: Alert & oriented x 3, no gross focal neurological deficits Psychiatric: Affect normal, Judgment normal, Mood normal. Impression: -HTN -Palpitations -CELAYA Plan: -Given HTN not well controlled on Metoprolol, will switch to carvedilol. Patient instructed to monitor Bp at home. Patient has no plans on child bearing at this time. She is advised of risks of carvedilol with and she voices understanding. -Will order holter monitor to assess palpitations -Will obtain Echo given dyspnea on exertion and palpiations -Optimize medical management -Aggressive risk factor modification -Plan of care discussed with patient. All questions were answered. Patient voices understanding and is agreeable with current plan. -Patient was educated on red flag symptoms. Strict return precautions were provided. Patient verbalizes understanding -Follow-up in cardiology clinic in 8 weeks, or sooner as needed Thank you for allowing us to participate in the care of your patient. Please do not hesitate to contact cardiology with any questions or concerns. Velma Chand MD Interventional Cardiology [facility] 05-20-2023 Hospital Discharg e instructions Patient Education 05/20/2023 14:37:25 Hematuria, Adult Hematuria, Adult Hematuria is blood in the urine. Blood may be visible in the urine, or it may be identified with a test. This condition can be caused by infections of the bladder, urethra, kidney, or prostate. Other possible causes include: Kidney stones. Cancer of the urinary tract. Too much calcium in the urine. Conditions that are passed from parent to child (inherited conditions). Exercise that requires a lot of energy. Infections can usually be treated with medicine, and a kidney stone usually will pass through your urine. If neither of these is the cause of your hematuria, more tests may be needed to identify the cause of your symptoms. It is very important to tell your health care provider about any blood in your urine, even if it is painless or the blood stops without treatment. Blood in the urine, when it happens and then stops and then happens again, can be a symptom of a very serious condition, including cancer. There is no pain in the initial stages of many urinary cancers. Follow these instructions at home: Medicines Take incs-lyh-kmthlag and prescription medicines only as told by your health care provider. If you were prescribed an antibiotic medicine, take it as told by your health care provider. Do not stop taking the antibiotic even if you start to feel better. Eating and drinking Drink enough fluid to keep your urine pale yellow. It is recommended that you drink 3 4 quarts (2.8 3.8 L) a day. If you have been diagnosed with an infection, drinking cranberry juice in addition to large amounts of water is recommended. Avoid caffeine, tea, and carbonated beverages. These tend to irritate the bladder. Avoid alcohol because it may irritate the prostate (in males). General instructions If you have been diagnosed with a kidney stone, follow your health care provider's instructions about straining your urine to catch the stone. Empty your bladder often. Avoid holding urine for long periods of time. If you are female: ?After a bowel movement, wipe from front to back and use each piece of toilet paper only once. ?Empty your bladder before and after sex. Pay attention to any changes in your symptoms. Tell your health care provider about any changes or any new symptoms. It is up to you to get the results of any tests. Ask your health care provider, or the department that is doing the test, when your results will be ready. Keep all follow-up visits. This is important. Contact a health care provider if: You develop back pain. You have a fever or chills. You have nausea or vomiting. Your symptoms do not improve after 3 days. Your symptoms get worse. Get help right away if: You develop severe vomiting and are unable to take medicine without vomiting. You develop severe pain in your back or abdomen even though you are taking medicine. You pass a large amount of blood in your urine. You pass blood clots in your urine. You feel very weak or like you might faint. You faint. Summary Hematuria is blood in the urine. It has many possible causes. It is very important that you tell your health care provider about any blood in your urine, even if it is painless or the blood stops without treatment. Take drkc-syn-niokcpk and prescription medicines only as told by your health care provider. Drink enough fluid to keep your urine pale yellow. This information is not intended to replace advice given to you by your health care provider. Make sure you discuss any questions you have with your health care provider. Document Revised: 10/05/2020 Document Reviewed: 10/05/2020 [employer] Patient Education 2022 [employer]. 05/20/2023 14:37:25 Ureteral Stent Implantation, Care After Ureteral Stent Implantation, Care After The following information offers guidance on how to care for yourself after your procedure. Your health care provider may also give you more specific instructions. If you have problems or questions, contact your health care provider. What can I expect after the procedure? After the procedure, it is common to have: Nausea. Mild pain when you urinate. You may feel this pain in your lower back or lower abdomen. The pain should stop within a few minutes after you urinate. This pattern may last for up to 1 week. A small amount of blood in your urine for several days. Follow these instructions at home: Medicines Take koxr-itt-gxmhuzn and prescription medicines only as told by your health care provider. If you were prescribed antibiotics, take them as told by your health care provider. Do not stop using the antibiotic even if you start to feel better. If you were given a sedative during the procedure, it can affect you for several hours. Do not drive or operate machinery until your health care provider says that it is safe. Ask your health care provider if the medicine prescribed to you: ?Requires you to avoid driving or using machinery. ?Can cause constipation. You may need to take these actions to prevent or treat constipation: ?Take jcku-wtf-qfxdmoa or prescription medicines. ?Eat foods that are high in fiber, such as beans, whole grains, and fresh fruits and vegetables. ?Limit foods that are high in fat and processed sugars, such as fried or sweet foods. Activity Rest as told by your health care provider. Do not sit for a long time without moving. Get up to take short walks every 1 2 hours. This will improve blood flow and breathing. Ask for help if you feel weak or unsteady. Return to your normal activities as told by your health care provider. Ask your health care provider what activities are safe for you. General instructions If you have a catheter: ?Follow instructions from your health care provider about taking care of your catheter and collection bag. ?Do not take baths, swim, or use a hot tub until your health care provider approves. Ask your health care provider if you may take showers. You may only be allowed to take sponge baths. Drink enough fluid to keep your urine pale yellow. Do not use any products that contain nicotine or tobacco. These products include cigarettes, chewing tobacco, and vaping devices, such as e-cigarettes. These can delay healing after surgery. If you need help quitting, ask your health care provider. Keep all follow-up visits. Contact a health care provider if: You start passing blood clots, or you have more than a small amount of blood in your urine. You have pain that gets worse or does not get better with medicine, especially pain when you urinate. You have trouble urinating. You feel nauseous or you vomit again and again during a period of more than 2 days after the procedure. You have a fever. Get help right away if: You are passing blood clots that are 1 inch (2.5 cm) or larger in size. You are leaking urine (have incontinence), or you cannot urinate. The end of the stent comes out of your urethra. You have sudden, sharp, or severe pain in your abdomen or lower back. You have swelling or pain in your legs. You have trouble breathing. These symptoms may be an emergency. Get help right away. Call 911. Do not wait to see if the symptoms will go away. Do not drive yourself to the hospital. Summary After the procedure, it is common to have mild pain when you urinate that goes away within a few minutes after you urinate. This may last for up to 1 week. Take kzjv-hzo-peeuowt and prescription medicines only as told by your health care provider. Drink enough fluid to keep your urine pale yellow. Call your health care provider if you start passing blood clots, or you have more than a small amount of blood in your urine. This information is not intended to replace advice given to you by your health care provider. Make sure you discuss any questions you have with your health care provider. Document Revised: 03/12/2022 Document Reviewed: 03/12/2022 [employer] Patient Education 2022 [employer]. 05/20/2023 14:37:25 Flank Pain, Adult Flank Pain, Adult Flank pain is pain that is located on the side of the body between the upper abdomen and the spine. This area is called the flank. The pain may occur over a short period of time (acute), or it may be long-term or recurring (chronic). It may be mild or severe. Flank pain can be caused by many things, including: Muscle soreness or injury. Kidney infection, kidney stones, or kidney disease. Stress. A disease of the spine (vertebral disk disease). A lung infection (pneumonia). Fluid around the lungs (pulmonary edema). A skin rash caused by the chickenpox virus (shingles). Tumors that affect the back of the abdomen. Gallbladder disease. Follow these instructions at home: Drink enough fluid to keep your urine pale yellow. Rest as told by your health care provider. Take ocnp-yso-kcfjusx and prescription medicines only as told by your health care provider. Keep a journal to track what has caused your flank pain and what has made it feel better. Keep all follow-up visits. This is important. Contact a health care provider if: Your pain is not controlled with medicine. You have new symptoms. Your pain gets worse. Your symptoms last longer than 2 3 days. You have trouble urinating or you are urinating very frequently. Get help right away if: You have trouble breathing or you are short of breath. Your abdomen hurts or it is swollen or red. You have nausea or vomiting. You feel faint, or you faint. You have blood in your urine. You have flank pain and a fever. These symptoms may represent a serious problem that is an emergency. Do not wait to see if the symptoms will go away. Get medical help right away. Call your local emergency services (911 in the [place] Do not drive yourself to the hospital. Summary Flank pain is pain that is located on the side of the body between the upper abdomen and the spine. The pain may occur over a short period of time (acute), or it may be long-term or recurring (chronic). It may be mild or severe. Flank pain can be caused by many things. Contact your health care provider if your symptoms get worse or last longer than 2 3 days. This information is not intended to replace advice given to you by your health care provider. Make sure you discuss any questions you have with your health care provider. Document Revised: 04/17/2021 Document Reviewed: 04/17/2021 [employer] Patient Education 2022 [employer]. Follow Up Care 05/20/2023 11:33:39 With:Viral CLAROS Address: [address] [place] [phone] Business (1) When:05/23/2023 14:21:58 Comments:Call Dr for diagnosis based follow up. Dr. Claros's office is going to call. Call the office if they do not call you in the next couple days. Continue taking Bactrim as prescribed. Return to the emergency room if your pain gets worse, fever or any new symptoms. With:GAYE DILL Address: [address] [place] [phone]- Business (1) When:Within 3 Day(s) [facility] 05-20-2023 Evaluation + Plan note Extrac troy from: Title:ED Note Author:Raf Adler, Lawson Freire te:05/20/23 1. Flank pain (R10.9: Unspec ified abdominal pain) 2. Hematuria (R31.9: Hematuria, unspecified) Orders: ketorolac, 30 mg = 1 mL, Injection, IV Push, Once, Stop date 05/20/23 11:59:00 EDT, STAT, Start date 05/20/23 11:59:00 EDT, 05/20/23 11:59:00 EDT Sodium Chloride 0.9% intravenous solution, 1,000 mL, Soln-IV, IV, Once, Stop date 05/20/23 11:59:00 EDT, STAT, Start date 05/20/23 11:59:00 EDT, Infuse over 61, minute(s) Basic Metabolic Panel CBC w/ Auto Diff eGFR Extra SST Tube PT & PTT U Beta Hcg Qual UA with Cult Rflx Urine Culture US Renal XR Abdomen 1 View Future Appointments Appointment Date:05/30/2023 01:30:00 PM Scheduled Provider: Location:[facility] Appointment Type:Surgical PAT FT Appointment Date:06/13/2023 11:15:00 AM Scheduled Provider: Location:[facility] Appointment Type:Surgery FT Diagnostic Tests Pending * Urine Culture 05/20/23 Future Scheduled Tests Radiology* XR Abdomen 1 View 04/19/23 [facility]02-29-2024 Evaluation + Plan noteExtracted from: Title:ANES Post-operative Note - General Author: Aamir Patel Jr., DO Date:04/18/23 Plan Transfer/Discharge: Transfer/Discharge Discharge when meets criteria ( From PACU to Ambulatory Surgery Unit, and To home ). Extracted from: Title:ANES Pre-operative Note - Adult Author:Aamir Joya Jr., DO Date:04/18/23 Plan [place] [employer] (ASA) physical status classification: Class II. Anesthetic Preoperative Plan: Anesthesia General. [facility]02-29-2024 Hospital Discharge instructions Patient Education 04/18/2023 10:51:20 [...] Follow these instructions at home: Medicines Take xxkr-qdl-yrtqtux and prescription medicines only as told by [...] provider. Document Revised: 01/01/2022 Document Reviewed: 10/09/2021 [employer] Patient Education 2022 [employer]. Follow Up Care 03/19/2023 10:26:52 With:Virla CLAROS Address: [address] [place] [id number] [facility] (1) When: Unknown Comments:Please call my office [...] the fluids to keep the urine clear. [facility]01-30-2024 History of Present illness Narrative* Ramy Gar DO - 03/19/2023 2:10 PM EST [...] Never Past Surgical History: Procedure Laterality Date MO TONSILLECTOMY & ADENOIDECTOMY <AGE 14 Allergies Allergen [...] nursing note reviewed. Exam conducted with a warehouse shipper present. Vitals: Estimated body mass index is [...] for annual unless needed otherwise. Documented by Ramy Gar DO on behalf of: Ramy Gar DO documented in this encounterLee's Summit [id number] Hospital Discharge instructions Patient Education 03/19/2023 10:15:59 [...] include: ?8 oz (237 mL) of milk, ozdrtns-tjhzcnwbvnrr-ntgvq milk, and calcium- fortifiedfruit juice. Calcium-fortified means [...] ?Spinach (cooked), rhubarb, beets, sweet potatoes, and [place] Citizen chard. ?Peanuts. ?Potato chips, zambian fries, and baked potatoes with skin on. ?Nuts and nut products. ?Chocolate. If you regularly take a diuretic medicine, make sure to eat at least 1 or 2 servings of fruits or vegetables that are high in potassium each day. These include: ?Avocado. ?Banana. ?[place], prune, carrot, or tomato juice. ?Baked potato. [...] magnesium, fish oil, or vitamin B6. Take iycs-soz-boezrql and prescription medicines only as told by [...] Casseroles. Pizza. Lasagna. Frozen meals. Potato chips. Burkinan fries. The items listed above may not [...] provider. Document Revised: 05/17/2022 Document Reviewed: 05/17/2022 [employer] Patient Education 2022 [employer]. Follow Up Care 01/29/2023 14:42:34 With:SHAWN COOK, Viral [employer], URL Address: [facility] [employer] [place] [id number] When: Unknown Comments:Schedule stone procedure [facility] 01-22-2024 Evaluation note* Encounter Date Diagnosis Assessment Notes Treatment Notes Treatment Clinical Notes Feb, Adult attention deficit disorder (ICD-10 - F98.8) [employer] [facility] Other 01-05-2024 Evaluation note* Encounter Date Diagnosis Assessment Notes Treatment Notes Treatment Clinical Notes Feb, Chronic GERD (ICD-10 - K21.9) [facility] Other 01-04-2024 Evaluation note* Encounter Date Diagnosis Assessment Notes Treatment Notes Treatment Clinical Notes Feb, Essential (primary) hypertension (ICD-10 - I10) [facility] Other 12-12-2023 Evaluation note* Encounter Date Diagnosis Assessment Notes Treatment Notes Treatment Clinical Notes Jan, Essential (primary) hypertension (ICD-10 - I10) Start low dose b-steven to improve BP and less headaches. Jan, Chronic GERD (ICD-10 - K21.9) change to H2 steven that should provide better results. Jan, Adult attention deficit disorder (ICD-10 - F98.8) Pt will take med for this chronic condition as prescribed for better results. Jan, URI, acute (ICD-10 - J06.9) Pt agrees symptoms are resolving Jan, Nephrolithiasis (ICD-10 - N20.0) Pt will contact Urology and let me know if they do not schedule her in the reasonable future. Notes continued hematuria. [facility] Other 09-29-2023 Evaluation note* Encounter Date Diagnosis Assessment Notes Treatment Notes Treatment Clinical Notes Oct, Adult attention deficit disorder (ICD-10 - F98.8) [facility] Other 05-31-2023 Evaluation note* Encounter Date Diagnosis [...] we will refer her to a opthomologist [facility] [employer] [facility] Other 05-08-2023 Evaluation note* Encounter Date Diagnosis Assessment Notes Treatment Notes Treatment Clinical Notes June, Homeless family (ICD-10 - Z59.00) Note provided. States she needs this to get help with housing through [facility]. [employer] [facility] Other 12-23-2021 Evaluation note* Encounter Date Diagnosis Assessment Notes [...] Patient care instructions given in writting by [facility] Care At Home document. [employer] [facility] Other Evaluation + Plan note Future Appointments Appointment Date:03/29/2023 10:30:00 AM Scheduled Provider: Location:[facility] Appointment Type:Surgical PAT FT Appointment Date:04/18/2023 09:30:00 AM Scheduled Provider: Location:[facility] Appointment Type:Surgery FT [facility] Evaluation + Plan note Future Appointments Appointment Date:04/18/2023 09:30:00 AM Scheduled Provider: Location:[facility] Future Appointments Appointment Date:06/13/2023 11:15:00 AM Scheduled Provider: Location:[facility] Appointment Type:Surgery FT Future Scheduled Tests Radiology* XR Abdomen 1 View [facility]19[facility]23 [facility] Future Appointments Appointment Date:06/07/2023 12:30:00 PM Scheduled Provider: Location:[facility] Appointment Type:Surgical PAT FT Appointment Date:06/13/2023 11:15:00 AM Scheduled Provider: Location:[facility] Appointment Type:Surgery FT Future Scheduled Tests Radiology* XR Abdomen 1 View 04/19/23 [facility] Evaluation + Plan note Future Appointments Appointment Date:11/25/2024 03:15:00 PM Scheduled Provider:Viral CLAROS MD Location:[facility] Appointment Type:URO Office Visit Future Scheduled Tests Radiology* XR Abdomen 1 View 04/19/23 [facility] Evaluation noteNo [facility] [employer] Other Evaluation note* Diagnosis Well woman exam with routine gynecological exam Routine gynecological examination documented in this encounter [facility] Diagnosis Onset Date Resolution Status Essential (primary) hypertension acute Migraine acute [facility] Work Phone: Evaluation noteNo assessment information available [facility] Work Phone: Evaluation note* Diagnosis Onset Date Resolution Status Bronchitis acute [facility] Work Phone: History general Narrative - Reported* Type Description Date Surgical History ADENOIDECTOMY Surgical History TONSILLECTOMY Hospitalization History SEE SURGICAL [facility] [employer] Other Hisankw general Narrative - Reported* Type Description Date Medical History Adult attention deficit disorder Medical History Lumbar pain Medical History Left flank discomfort Medical History Syncope and collapse Medical History Menorrhagia Medical History Kidney stone Medical History Anxiety and depression Medical History GERD (gastroesophageal reflux di sease) Surgical History ADENOIDECTOMY Surgical History TONSILLECTOMY Hospitalization History SEE SURGICAL HX [facility] Other Hospital course Narrative No data available for this section [facility] Hospital Discharge instructions No data available for this section [facility] No data available for this section [facility] Summary Purpose Family History Relationship Condition Age at Onset Recorded Date/T hector Not Specified Hypertension Unknown Relationship Condition Age at Onset Recorded Date/T hector mother Hypertension Unknown Advance Directives Advance Directive Response Recorded Date/ Time Advance Directives No April 18 3:04pm Chief Complaint and Reason for Visit Chief Complaint Headaches Amb Documentation med refills Reason for Visit Essential (primary) hypertension Migraine Chief Complaint chest congestion, co ugh Chief Complaint chest congestion, co ugh sore throat not getting better Reason for Visit Bronchitis Additional Source Comments INFORMATION SOURCE (unrecogn ized section and content) DATE CREATED AUTHOR 08/12/2018 Coretta moya DATE CREATED AUTHOR AUTHOR'S ORGANIZ ATION 05/26/2022 [facility] DATE CREATED AUTHOR AUTHOR'S ORGANIZ ATION 07/04/2023 [facility] EPIC DATE CREATED AUTHOR AUTHOR'S ORGANIZ ATION 08/15/2023 [facility] DATE CREATED AUTHOR AUTHOR'S ORGANIZ ATION 11/21/2023 [facility] DATE CREATED AUTHOR AUTHOR'S ORGANIZ ATION 11/22/2023 [facility] REASON FOR VISIT (unrecogniz ed section and content) Reason Comments Gynecologic Exam Patient Care team informatio n (unrecognized section and content) 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 Start Date End Date Gaye Dill MD [address] [place], [place] [address] [id number] PCP - General Family Medicine 07/19/22 Team Status: Active Member Role Status Dates Gaye Dill MD Primary Care Provider Active Team Status: Inactive Member Role Status Dates Gaye Dill MD Primary Care Provide r, Attending Provider Active Start: April 23, 2023 End: April 23, 2023 Team Status: Active Member Role Status Dates Gaye Dill MD Primary Care Provider Active Start: April 26, 2023 Charlene Nair Attending Provider Active Start: [facility] 2023 Team Status: Inactive Member Role Status Dates Gaye Dill MD Primary Care Provide r, Attending Provider Active Start: July 17, 2023 End: July 17, 2023 Team Status: Inactive Member Role Status Dates Gaye Dill MD Primary Care Provide r, Attending Provider Active Start: November 14, 2023 End: November 14, 2023 Team Status: Inactive Member Role Status Dates Gaye Dill MD Primary Care Provide r, Attending Provider Active Start: December 13, 2023 End: December 13, 2023 Goals (unrecognized section and content) Goals may be documented in a n alternate section FOR RECORDS PERTAINING TO PATIENTS WHO ARE [...] BE BASED ON THE PRIMARY CLINICAL RECORDS. [facility] [employer] [facility]. provides no warranty or guarantee of the accuracy or completeness of information in this document.
[2024-03-03 19:26] VITALS: BP 170/120; PULSE 84; TEMP 36.7; O2SAT 98; BMI 38.8
--- NOTE | 2024-03-03 19:40 | ED.GENADUL1 ---
HPI HPI - General Adult General Chief complaint: Head Injury Stated complaint: migraine Time Seen by Provider: 03/03/24 19:29 Source: patient Mode of arrival: walk-in History of Present Illness HPI narrative: This 24-year-old female with a history of migraine headaches presents for evaluation of elevated blood pressure and a migraine headache. The patient states that she has had a migraine for the past 2 to 3 days. It is a typical migraine for her on the right side of her head associated with photophobia nausea and 1 episode of vomiting. She has no neck pain or stiffness. She has been seen by neurology and cardiology in the past. She has no focal neurologic weakness numbness or tingling. She is most concerned about her blood pressure as it has been running high. Her triage blood pressure was 170/120 but had already come down into the 150s during my evaluation. She has no focal neurologic symptoms including blurred vision slurred speech or confusion. She denies the possibility of . She has taken txdy-cik-bxhezlh medications without relief. Related Data Home Medications ?Medication ?Instructions ?Recorded ?Confirmed dextroamphetamine-amphetamine 15 15 mg PO BID 01/22/23 01/22/23 mg tablet Previous Rx's ?Medication ?Instructions ?Recorded ketorolac 10 mg tablet 10 mg PO TID PRN pain #10 tabs 01/23/23 ondansetron 4 mg disintegrating 4 mg PO Q6H PRN nausea and 01/23/23 tablet vomiting #12 tabs Allergies Allergy/AdvReac Type Severity Reaction Status Date / Time codeine Allergy Severe Hives Verified 01/23/23 19:51 Opioid HPI Opioid Management Most Recent Opioid Data: No Data to Display Review of Systems ROS Status of ROS 10 or more systems reviewed and unremarkable except as noted in history and below [facility] Medical History (Updated 03/03/24 @ 20:55 by Lexis Mukherjee MD) History of kidney stones ?Z87.442 - Personal history of urinary calculi (ICD-10) Social History Smoking status: Unknown if ever smoked Little interest or pleasure in doing things: not at all Feeling down, depressed, or hopeless: not at all Exam Narrative Exam Narrative: Vital signs and Nursing Notes reviewed: Blood pressure is elevated at 170/120, her pulse is 84, she is afebrile, pulse ox is normal at 98% on room air General: Overweight adult female sitting comfortably in a well lit room, no respiratory distress, no active vomiting HEENT: Normocephalic atraumatic, mucous membranes are moist and pink, eyes are clear, normal conjunctiva, vision is grossly intact, posterior pharynx is normal in appearance. No appreciable photophobia Neck: Supple, no meningeal signs Chest: Lungs are clear to auscultation with good air entry, there is no wheezing rhonchi or rales appreciated no accessory muscle use, patient is speaking in complete sentences-no chest wall tenderness to palpation CVS: Regular rate and rhythm S1-S2, no murmurs rubs or gallops, pulses are brisk and equal bilaterally ABD: Soft, nondistended, nontender, no rebound guarding or rigidity, bowel sounds are normal, no pulsatile masses appreciated Extremities: Moving all extremities, no lower extremity tenderness or swelling noted, negative Homans' sign, pulses are brisk and equal bilaterally Skin: Normal in appearance without rash,pallor, petechiae or purpura Neuro: No focal deficits, speech is clear, there is no facial droop, bike designer strength is intact, upper and lower extremity strength and sensation is intact Constitutional Vital Signs, click to edit/add: Last Vital Signs Temp 98.1 F 03/03/24 19:26 Pulse 84 03/03/24 19:26 Resp 18 03/03/24 19:26 BP 156/92 H 03/03/24 20:52 Pulse Ox 98 03/03/24 19:26 O2 Del Method Room Air 03/03/24 19:26 Course Vital Signs Vital signs: Vital Signs Temperature 98.1 F 03/03/24 19:26 Pulse Rate 84 03/03/24 19:26 Respiratory Rate 18 03/03/24 19:26 Blood Pressure 170/120 H 03/03/24 19:26 Pulse Oximetry 98 03/03/24 19:26 Oxygen Delivery Method Room Air 03/03/24 19:26 Temperature 98.1 F 03/03/24 19:26 Pulse Rate 84 03/03/24 19:26 Respiratory Rate 18 03/03/24 19:26 Blood Pressure 156/92 H 03/03/24 20:52 Pulse Oximetry 98 03/03/24 19:26 Oxygen Delivery Method Room Air 03/03/24 19:26 Medical Decision Making [facility] Narrative Medical decision making narrative: This 24-year-old female with a history of migraine headaches presents for evaluation of a migraine headache that is typical for her on the right side of her head with mild photophobia and phonophobia. Has been present for the past several days. She has had 1 episode of vomiting. She is also concerned about her blood pressure as it has been elevated at home. She states her grandfather is very concerned about her blood pressure and made her come to the emergency department. Initially in the emergency department her blood pressure was elevated. An IV was placed and she was medicated with Decadron, Toradol and Zofran as well as IV fluids. On reevaluation her blood pressure is now 156/92. She is comfortable appearing although states that her headache is unchanged. She stated to me initially that she was not that concerned about her headache as it was starting to resolve but was more concerned about her blood pressure. I explained to her that we typically do not initiate blood pressure treatment in the emergency department unless it is markedly elevated especially in light of the fact that she has a local family physician. She was encouraged to follow-up as soon as possible with a local family physician for further evaluation and monitoring of her blood pressure. Discharge Plan Discharge Chief Complaint: Head Injury Clinical Impression: Headache, migraine, Elevated blood pressure reading Patient Disposition: Home, Self-Care Time of Disposition Decision: 20:55 Condition: Good Prescriptions / Home Meds: No Action dextroamphetamine-amphetamine 15 mg tablet 15 mg PO BID ketorolac 10 mg tablet 10 mg PO TID PRN (Reason: pain) Qty: 10 0RF ondansetron 4 mg tablet,disintegrating 4 mg PO Q6H PRN (Reason: nausea and vomiting) Qty: 12 0RF Print Language: Grenadian Instructions: Migraine Headache (ED), Hypertension (ED) Additional Instructions: The current recommendation for elevated blood pressure is lifestyle changes including low-fat diet, increasing her exercise, decrease tobacco use, decrease alcohol use. Please follow-up closely with your family physician for repeat blood pressure testing and further evaluation and management. Use Compazine as needed for migraine headaches. Referrals: Leticia Young MD [Primary Care Provider] - 1 week
[2024-03-03] MEDS: DEXAMETHASONE SOD PHOS 10 MG/ML VIAL IV (20:00)
[2024-03-03] MEDS: ONDANSETRON PF 4 MG/2 ML VIAL IV (20:00)
[2024-03-03] MEDS: KETOROLAC TROMETHAMINE 30 MG/ML VIAL IVP (20:00)
[2024-03-03] MEDS: 0.9 % SODIUM CHLORIDE 1,000 ML 1000 ML IV (20:00)
[2024-03-03 20:52] VITALS: BP 156/92
== END 2024-03-03 21:27 | disposition home or self-care (01) ==
PROVIDERS: Emergency Provider Emergency Medicine; PCP Family Medicine
DX: G43.909 Migraine, unspecified, not intractable, without status migrainosus (principal); R03.0 Elevated blood-pressure reading, without diagnosis of hypertension
CPT/HCPCS: 96361; 96374; 96375; 99284; J1100; J1885; J2405

== ENCOUNTER 2024-03-09 14:40 | Emergency (ER) | payer OTHER, SELFPAY ==
[2024-03-09 14:49] VITALS: BP 154/93; PULSE 121; TEMP 37.1; O2SAT 97; BMI 39.9
--- OUTSIDE RECORDS SUMMARY | 2024-03-09 14:55 | XMS_ITS | CCD ---
Author Organization [facility] CliniSynh Care Team Providers Care Chalk Tester Name Role Phone Columba Fernandes Unavailable Gaye [...] Attending Unavailable GAYE DILL Primary Care Physician [phone] Lexis Moura Unavailable Unavailable Gaye Dill MD [...] (disorder), Hyperactive behavior (finding) [facility] (1 source) Codeine Drug Allergy 5 [facility] (1 source) patient allergy list reviewed by nurse or physicia Propensity to adverse reactions 8 Comment:Done Backpack Other (1 source) Allergies Reconciled Propensity to adverse reactions Unknown Backpack Other Medications Current Medications Medication Drug Class(es) [...] for 2 day(s), 5 tab(s), Refill(s) 0, [facility] #[id number], 163.5, cm, 06/13/23 10:01:00 EDT, Height/Length Dosing, 87.1, kg, 06/13/23 10:01:00 EDT, Weight Dosing Start Date: 06/13/23 Stop Date: 06/15/23 Status: Ordered Start: 04-18-2023 End: 04-20-2023 acetaminophen-hydrocodone 32 5 mg-5 mg oral tablet 1 tab(s), Oral, q4hr Pain for 2 day(s), 7 tab(s), Refill(s) 0, N20.0, [id number], 165, cm, 04/01/23 6:28:00 EST, Height/Length Dosing, 94.7, kg, 04/01/23 6:28:00 EST, Weight Dosing Start Date: 04/18/23 Stop Date: 04/20/23 Status: Ordered Amphetamine / Dextroamphetamine (5 sources) Central Nervous System Stimulant Adderall XR Active carvedilol 6.25 mg oral tablet (3 sources) alpha-Adrenergic Steven, beta-Adrenergic Steven Star t: 05-19 carvedilol 6.25 mg Tab Refills(s) 0 Start Date: 06/05/23 Status: Ordered cephalexin 500 mg oral capsule (1 source) Cephalosporin Antibacterial Star t: 03-22 End: 07-07 take 1 capsule by mouth every twelve hours cephalexin 500 mg Cap 500 mg = 1 cap(s), Oral, q12hr, X 5 day(s), # 10 cap(s), Refills(s) 0, Pharmacy: [facility]/pharmacy #[id number], 165, cm, 04/01/23 6:28:00 EST, Height/Length Dosing, 94.7, kg, 04/01/23 6:28:00 EST, Weight Dosing Start Date: 04/18/23 Stop Date: 04/23/23 Status: Ordered ciprofloxacin 500 mg oral tablet (2 sources) Quinolone Antimicrobial Star t: 05-20 take 1 tablet by mouth twice daily Cipro 500 mg Tab 500 mg = 1 tab(s), Oral, BID, # 10 tab(s), Refills(s) 0, Pharmacy: [facility]/pharmacy #[id number], 163.5, cm, 06/13/23 10:01:00 EDT, [...] day(s), # 60 tab(s), Refills(s) 1, Pharmacy: [facility]/pharmacy #[id number], 165, cm, 04/01/23 6:28:00 EST, Height/Length Dosing, 94.7, kg, 04/01/23 6:28:00 EST, Weight Dosing Start Date: 04/18/23 Stop Date: 06/17/23 Status: Ordered sertraline 50 mg oral tablet (1 source) Serotonin Reuptake Inhibitor Star t: 02-18 take 1 tablet by mouth once daily Sertraline (Zoloft) 50 mg tablet Active 50 MG PO Daily March 06, 2024 12:00am sulfamethoxazole 800 mg / trimethoprim 160 mg oral tablet (1 source) Dihydrofolate Reductase Inhibitor Antibacterial, Sulfonamide Antimicrobial Star t: 04-19 End: 09-06 Bactrim D.S. 800 mg-160 mg Tab 1 tab(s), Oral, BID for 10 day(s), 20 tab(s), Refill(s) 0, [facility]/pharmacy #[id number], 165, cm, 04/01/23 6:28:00 EST, Height/Length Dosing, 94.7, kg, 04/01/23 6:28:00 EST, Weight Dosing Start Date: 05/16/23 Stop Date: 05/26/23 Status: Ordered SUMAtriptan 100 mg oral tablet (11 sources) Serotonin-1b and Serotonin-1d Receptor Agonist Star t: 05-20 take 1 tablet by mouth once daily as needed for headache SUMAtriptan 100 mg Tab 100 mg = 1 tab(s), Oral, Daily, PRN Headache, Refills(s) 0 Start Date: 06/13/23 Status: Ordered Start: 04-23-2023 End: 03-06-2024 take 4 tablets by mouth every twenty-four hours as needed for headache Sumatriptan Succinate 50 mg tablet Discontinued 50 MG PO EVERY 2-4 HOURS as needed for migraine headache April 23, 2023 12:00am March 06, 2024 10:11am do not exceed 4 doses per 24 [...] Daily, # 30 cap(s), Refills(s) 0, Pharmacy: [facility]/pharmacy #[id number], 165, cm, 04/01/23 6:28:00 EST, [...] tablet Discontinued 20 MG PO Twice daily 60 October 31, 2023 October 25th, 2024 7:27am administer doses at least 4-6 hours apart Start: 04-18-2023 End: 07-17-2023 take 1 tablet by mouth twice daily Dextroamphetamine-Amphetamine 15 mg tabl et Discontinued 15 MG PO Twice daily April 18, 2023 12:00am July 17, 2023 11:13am Start: 03-19-2023 take 25 mg by mouth [...] Start: 04-10-2022 take 1 capsule by mo [facility] every twenty-four hours Adderall XR 25 MG 1 capsule Orally Once a day for 30 days Mar, Active atomoxetine 40 mg oral capsule (1 source) Norepinephrine Reuptake Inhibitor Start: 12-13-2023 End: 03-06-2024 take 1 capsule by mouth once daily in the morning Atomoxetine (Strattera) 40 mg capsule Discontinued 40 MG PO Every morning December 12, 2023 11:00pm March 06, 2024 10:10am azithromycin 250 mg oral tablet (2 sources) Macrolide Antimicrobial Start: 11-14-2023 End: 12-13-2023 Azithromycin 250 mg tablet Discontinued 0 PO .COMPLEX November 13, 2023 11:00pm December 13, 2023 7:28am For 250 mg dose pack: take 500 mg today (day 1), then 250 mg for 4 days (days 2-5) PO Start: 11-14-2023 End: 12-13-2023 Azithromycin Discontinued 0 PO .COMPLEX November 14, 2023 12:00am December 13, 2023 8:28am For 250 mg dose pack: take 500 mg today (day 1), then 250 mg for 4 days (days 2-5) PO cefdinir 300 mg oral capsule (2 sources) Cephalosporin Antibacterial Start: 12-13-2023 End: 03-06-2024 take 1 capsule by mouth twice daily Cefdinir 300 mg capsule Discontinued 300 MG PO Twice daily December 12, 2023 11:00pm March 06, 2024 10:10am famotidine 20 mg oral tablet (20 sources) Histamine-2 Receptor Antagonist Start: 03-29-2023 End: 12-13-2023 take 1 tablet by mouth once daily at bedtime Famotidine 20 mg tablet Discontinued 20 MG PO Daily at bedtime April 26, 2023 4:51pm December 13, 2023 7:28am Start: 01-29-2023 take 1 tablet by umesh th at bedtime famotidine (Pepcid) 20 MG tablet Take 20 mg by mouth at bedtime 0 02/24/2023 Active ibuprofen 800 mg oral tablet (16 sources) Nonsteroidal Anti-inflammatory Drug Start: 04-18-2023 End: 12-13-2023 take 1 tablet by mouth every eight hours as needed Ibuprofen 800 mg tablet Discontinued 800 MG PO Every 8 hours as needed April 18, 2023 12:00am December 13, 2023 7:28am Start: 01-24-2022 ibuprofen 800 MG tablet every 6 (six) hours if needed. 0 01/24/2022 Active take 1 tablet by umesh th every eight hours at mealtime Ibuprofen 800 MG TAKE 1 TABLET BY MOUTH EVERY 8 HOURS WITH FOOD OR MILK NEEDED 30 for 30 Active 24 hr metoprolol succinate 25 mg extended release oral tablet (18 sources) beta-Adrenergic Steven Start: 03-29-2023 End: 07-17-2023 take 1 tablet by mouth once daily Metoprolol Succinate 25 mg tablet extended release 24 hr Discontinued 25 MG PO Daily April 26, 2023 4:51pm July 17, 2023 11:09am Start: 01-29-2023 take 1 tablet by umesh once daily metoprolol succinate XL (Toprol-XL) 25 MG 24 hr tablet TAKE 1 TABLET BY MOUTH EVERY DAY FOR 30 DAYS 0 02/24/2023 Active omeprazole 20 mg delayed release oral capsule (8 sources) Proton Pump Inhibitor Start: 04-18-2023 End: 04-23-2023 take 1 capsule by mouth once daily Omeprazole 20 mg capsule,delayed release(DR/EC) Discontinued 20 MG PO Daily April 18, 2023 12:00am April 23, 2023 3:14pm Start: 12-07-2022 take 1 capsule by mo [facility] once daily Omeprazole 20 MG 1 capsule 30 minutes before morning meal Orally Once a day for 30 day(s) Nov, Active Problems Active Problems Problem Classification Problem Date Documented Date Episodic/Chronic Abdominal pain (20 sources) Abdominal pain; Translations: [Unspecified abdominal pain] Onset: 02-28-2017 Episodic Anxiety disorders (19 sources) Mixed anxiety and depressive disorder; Translations: [...] Episodic Chronic obstructive pulmonary disease and bronchiectasis (3 sources) Bronchitis; Translations: [Bronchitis, not specified as [...] 05-20-2023 Resolved: 11-17-2020 Episodic Headache; including migraine (12 sources) Migraine with aura; Translations: [Migraine with [...] current use of drug therapy; Translations: [Other fdc (current) drug therapy] Episodic Other circulatory disease [...] Onset: 11-04-2023 Episodic Other upper respiratory infections (8 sources) Acute pharyngitis, unspecified; Translations: [Acute pharyngitis] [...] and Corynebacterium diphtheriae antigens (medicinal product); Translations: [Krtxgvecwz-xsadnbv-e ertussis, combined [DTP] [DtaP]] Onset: 11-02-2014 Unclassified [...] with voice recognition artificial intelligence software, specifically [employer], [employer] and or [employer]. Substitutions may have occurred due to the inherent limitations of voice recognition and artificial intelligence software. 1. Kidney stone (N20.0: Calculus of kidney) Pt was seen at [facility] on 01/22/23 due to left sided [...] right interpolar renal calculus. Pt presented [facility] 05/20/23 with hematuria. S/p cysto, L [...] Information SHAWN COOK, Viral P, URL [address] [facility] [address] [place] [id number]- Additional Instructions: 1 year w/ KUB Patient Education Dietary Guidelines to Help Prevent Kidney Stones I, Judy Daily, personally scribed for Dr. Claros on 11/20/2023 15:37:45. . Documentation recorded by the scribe, Judy Daily, accurately reflects the services(s) I performed and decisions made by me. Authenticated by Dr. Claros on 11/20/2023 15:39:46. Problem List/Past Medical History Ongoing Abdominal pain Flank pain Kidney stone Smoker Historical Acid reflux ADHD - Attention deficit disorder (more content not included)... Normal [facility] Comment on above: Result Comment: Elec tronically [...] in the left mid kidney. Finalized by aTnvir Hurt MD on 11/19/2023 7:43 PM Normal [facility] RAPID STREP SCR NURSINGon S. pyogenes Ag EIA Ql (Throat) Positive Abnormal NEG [facility] Comment on above: Performed By: #### C BCA, CMP #### [facility] ([id number]) [address] [facility] [place] [place] [address] SARS/FLU A+B/RSV by NAAT/Mol dangeloon 11-04-2023 SARS/FLU A+B/RSV by NAAT/Molecular FLU A [...] operators who are performing tests using either [employer] or [employer] systems and is limited to laboratories that [...] specimen repeat. Fact Sheet for Healthcare Providers: https://www.fda.gov/me tressa/800156/download Fact Sheet for Patients: https://www.fda.gov/me tressa/203528/download Normal [facility] Comment on above: Performed By: #### C BCA, CMP #### [facility] ([id number]) [address] [place] [address], [place] [address] Coding Summary.on 08-09-2023 Coding Summary. WSARSumu40MZk5pKs+PG hl YWQ+YZ0TFBQgG12ojLQpmT 1mV3TDHLhYXnerJMRAGLqF XtItykDsLN3hvJEnQVEr IC8+AL5sNLNuEjpxnZEee8 K7ySF2G25hlk6yKQdrtNL9 ZLMcMsUxhbklp6yabZm3AF cuNmluOyBt MAHntM35KRW6bQ24Un86jE JdiELxd4zbnSi5WdFlSXPd WRY1qSeyPMbsa0PoRSXzH5 3ymNTgo3W3 HGWdrBvvkCLvChDckKO9rF 5uJXwxmtdyf0onvffkMom3 jl68hFHct6O1rIL0F1Qedh P6LNBdsJFh HjsakCWIuC3xeksel9poyt zcZwAoUBLeMLu5SIl2MQBb gKiuDdEeQY45IFO9EDKkjw NuG4EwMHMo nMhpTeA0t6D8Cq8WF4WIGr xlL7MYXJCBDOlahOA+PC90 au75Z4YcPeilWdo3JVRyHA A2vLF2aX6n SNZoLFzdk4F8hTH7I3Qchz Pcbf7us1rvHMTtZXdnR75e zUJtc5S1UCSurIW7EWVqvL enOdAdzU23 Oyc+CLHmlDofv7KuCxxby8 vzl4wglQj3PdqbJESgtzXg pYteCAJ1c5TnLn9zWNPrnO P7sHD3rJ5a ReWcClJ0EEelQ541EqPxrR JoCfvaH31nN4ZmyTN+PHRy Ucl8UPEqpRrsBE0jM9CpML RpbmctbGVm fMrhCH2bWKAvlrdpRFLbwB 0nEBRoQ4t7GpVwHwN5JRhb X0DnFSNibseoIq91sL4vAy XoDmS4EDkr Z9UxsaT0MUYojPAiYWhwYO H3W36fr0X0XLRiBBTsXVM9 rVQ7aB5rhXgetlbgfLPkbO sgdmVydGlj AVkhFFdzG328NDWfsHqlMq NvZGluZyBEYXRlOiAgMDYv MjEvMjAyNDwvdGQ+PHRkIH U1qJkgLGGp oCIvZLvjRh5zsNvukSjuXI 8mGTOgrzqcPYBnvF0rUKKe rDDhsFufQI3dZTRczmspg8 98GsIuGBK4 OOLrkUTnR9ClpB1eImHsET KsSVGwM0HozPMzUQfoF059 SRxyQzY7XLAuynQaL7ZeTH FsaWduOiB0 y4Y2Ks2Im0KwnfqjP8BkoC LaXgQjRagoOWm5A7VmDmbs dHI+ZO86YMMwOM09CRx1ZK I1jYreWCpn VYWsS1AoxV8lHdQhEVLxSS RkOyc+PHRhYmxlIHdpZHRo GVedQUIvUjIuzEukHL8xQr 9yZGVyLWNv aGocpERlAbCos3spAXEiEG qxFK2woPzmU3VrpMS9ZKTb v1q9Mg86G26yL4EgsFY+PG XjnZM4gUP1 cH6xQbXaMqI6EKayQ640Dc ZfwVJzBcfci0dwx5oitXj0 AxO7XRKwufPryPbrORR2p1 KwFp75X39x IHdpZHRoPSIxNSUiIHZhbG iidj5zwD2bAm2+PGNvbCB3 jWT0yS5iKrKxRcX7CVmbU1 49InRvcCIv Libex4aia0dqzWt5QiRkEF TyacTpgVumASW7e9OhHy69 X4TcbBmii5PnFip4uo51bJ Nyv5U6yHJ2 N8DqIOTvmwzvsBYauYdtNA 0aIIJsygykVUJqwX3sREPe Q2w1XeZvFdA6DEgfM7Tsfh V1TKOlgMYb OCTdjEWRdT4fobyzf5tjno gzYoZkCYPlMCi2RBm5LODq oAvsEcFuWNW4KpT8DZD5xJ ThaY8apSpj gysjrZ3dEuc+TDV8mHIjpQ PSWF2hOpctpBA+PHRkIHN0 nFgiNTgoKQNbhR4fRLAbP6 b2TjXoSvN6 KPekM9ChrpZ2DCUloTCjBL NvmAUQuN0xohumk2cmdhdo DuEmJYQfIXw9IDz2SSRxhT duOiBsZWZ0 WeY8NFI4vRWckS5asPxtho ijsV1tPfy+QmlydGggRGF0 JOn0E6WyOcg7NQXknZrsAQ 0ncGFkZGlu Ue7oyHglzPacUX9cXNZozs dhm459BgVup6gxBHCimFNx HGunLZK3O28zz2A0QTAfZZ JcKRG9sFE2 uG7lfCuairpftGJnnVowmt TisPziARwqDClwN985UCKg bTgbGoTyUWv9F6IjRxw6SI OplXvcGB0m iKAeDVpuPg0zbCjlrNvvHC 3hBFHxvgavx605EyZgp3xf QXHgaPSuMGziNHJ3P41dd3 S0GFGvDXNq RKK8pJY5uO7reHcegguanN VmdDsgdmVydGljYWwtYWxp K390UFKkwKodJyPnfIv0O0 QvUsb8XBDn nZhxVQ9riIPtBLzlYb9pnR xzbWdzLW6eWFVqgnyge663 VpJkz7lxMXTqsIHiOJpzPJ Z7V91lp2Y5 YSZbZZPkYBH5zSX8vK4jtQ lnbjogbGVmdDsgdmVydGlj CPiqCHtiO964WIMddZycIv BhdGllbnQg RHapPRw3U2AoUkxjvPR+PC 28GZJlYT48gDTaeYCea9sb tDo0OjKgSHHoYVT1wQomUE rig8ZlSUKe Z67fcDPwa7V9ABVhlFtknF MoYuOodEJ9rD7bGWtlncry h4jcobkpKwvww4mskv89qK 45G16jFIue ZHRoPSIzMCUiIHZhbGlnbj 8obG9fLq8+GHZywTI5aQS4 mB6iSXBnFdF6FPtcY313Kg RvcCIvPjxj c7glm4rlnXl8OwF0XCAyrq FopMsnGMB9q5RfYy34M06m IHdpZHRoPSIyMCUiIHZhbG smfp7zbQ5c Ii8+AQHbdYL5zRH4oX2pCi JbVrQ3OAcqG026WcMckWXn CqrnV29wE1QkaFN+PHRyPj b2ORGlwQsh XZ3elGWvSWitLd6jRSY8Tg UwGlTzSFeyQ5QaKHZmhafm khnonEH0NJZnMHGefY01Gw 9udDogMTBw hMNKcC7ifzqvf1bqzmocJo YqHUUoWCj0BBc6PGLnsNpk QkOjRVW0WtP4DZU1rQTqdX 1hbGlnbjog lO6tB6CmMQQoegbsXg65jD 7jZqArDeX5MTszZoq+TEFX V96LSTVAORoFRFsdBMdeoU Q+PHRkIHN0 sFjwPOvoJLRgfJ5lPKSxQ0 i6ArKfDuN7PIrkR1NnTHGz rpqeZm80lK1jGfAbUzN3EA nbR7MrxnT9 EXLkyNXdDNjuABJ6W07xk4 M4AFJcUYWxICH2wPC1lN3r bGlnbjogbGVmdDsgdmVydG ljYWwtYWxp N480SCUrcBjrCgIaLnYxJi OyWVL1A9KiZeo5CUWdrSiw ZF6xlFYlEUkhOq9bvHmhvE zbMP0cGXHj fkhqSMLgyA5gXMLdeDPczC csCG6eMXArqoqss267KlRz VDA8RNAhcRLeA7LirC1hOm AjMDAwMDAw C0UxuCMpJSchZ749NZxpPq S3LIDzsnNpO2FtRXQcsUuw GnY8p3Q7Mv1qBSIEUWVzkz wvdGQ+PHRk LOU2tMlkBVpiCSDmcL7hMC GlE5n9AuHpLaN2CCvaM8Te TSRxosoyQx49rK5fLlPcEs C3MCexQ2Nc kyU6PTBclLAhVWtfYIT2A1 8zx6U8ZQCfBOFhKFR6uOC6 zM0ndJlfbbridBOmwYqusw VydGljYWwt MXfsA491ZNTneLstOqUxpX FsZTwvdGQ+AQHjDFH7iMtp JFlwDUIujR9bBQKeN3r1Gs PmPrE7SHqu G1YhSZQglyjjTw88mJ4wVm TnTqJ5OZoiL9UsqxC2PGYc cLDuTSadNHF0Z11dd6T6NP MwMDAwMDA7 eID0nL1emYzjjjdbfXBrnQ lcwlOfwHhrDTiyPRyyX639 ONAroUceBf51jDOnyLxegq W1D5YhHaar dHI+BU26AENbAW03vPPwbD Aoi4jpaNj6EdSuOJJcCGB8 mPljMSkbf2AvHUEbO49esO Hrn4T2HYEr rRiulENbSuDneBP1xC9oAQ vvyjdtu6sobcmuFngde5qg px09wD74R75iGYjiHEDxXR IzMCUiIHZh lHbgko9jcU8cIl7+PGNvbC V5jAS8rD1tEpHmAeW3AIyb A952SqDnwYKuErgqa0yvw7 yjtBj5DnJu UYFwzsCzzHouYLX6t0XcSj 66U08lLCuvTPKuKWRmWPCh JIAkzHpgzj3yuY0nCi5+PC 4vz5dpsh48 tC67nQM+JCNdSUH2dUqdTC imPVKklL0mZEbsRbY3PIHr IqMekZ25sAAiMIhvRc6giJ orjKnuCK6w ADPtcmfra099OeQxe9grQB FrhPRyVMdaTMY0P19kj1D9 LZGdRJQgYYL3mTR4eV5jyY lnbjogbGVm dDsgdmVydGljYWwtYWxpZ2 41ZTVszKptDnNexLXgS4cq geIWOO5eBufzrEH+PHRkIH Y1aSewDJqc GETglH4sTVQeM5q9DuFeTi A8QQedA1KtkyP0ODSqyMMy WBBvnXJUyD6ffnxdk6vpji ogIzAwMDAw GFs7TTf4KPSzrQxaInFlKN S9ZfV9RTM2dXOwaI8fwQhs vimwnK7iSbv+RklOOjwvdG Q+PHRkIHN0 lHrgMCpuOMOvdU2rYBSoW7 y1GcOgMzG8TGwiZ1JqweA3 QFTwzPRkUOEjsUQYkT5emd yot7vamild UwCcZYItVYg1FCk1GSRkrP zmQwGdAIB3UgQ6ANG7qFGt bZ6qmGdoevdmcQ0cKpa+TV JOOjwvdGQ+ FSIqTGA0qBczDLyuTIMqpW 5sQTNjQ7q5CbEtLgO9CLcn H9KjwqO2YWEntKNwLUArxX AYoN6jbflg k8dziiynOaZqUFQjPWj2JB o9DSFvuWkxUaVaMCG9QfD4 FUE1kPInuT0fqRpadloidJ 9wOyc+UGF5 GCW8II70TQ09H8PfPqikbL FibGU+PHRhYmxlIHdpZHRo OXrtIOSfTuXjlAouPS5eRb 9yZGVyLWNv bGxhcHNlOiBjb (more content not included)... Normal [facility] Physician Orderon 08-08-2023 Physician Order [id number] Normal [facility] Formson 08-06-2023 Forms [id number] 0TIFF Normal [facility] Physician Orderon 07-23-2023 Physician Order [id number]. [id number] Normal [facility] Calculus Analysison 06-23-19 24 Calcium oxalate dihydrate Infrared spectroscopy (Stone) [Mass fraction] 20 % Invalid Interpretation Code [facility] Comment on above: Performed By: #### 1 [id number] ####[facility] [address] [place] [address] Calcium oxalate monohydrate (Stone) [Mass fraction] 70 % Invalid Interpretation Code [facility] Comment on above: Performed By: #### 1 [id number] ####[facility] [address] [place] [address] Calculus analysis [Interp] Comment Invalid Interpretation Code [facility] Comment on above: Result Comment: Calc ium phosphate (hydroxyl form) includes hydroxyapatite, amorphous calcium phosphate, and whitlockite. Hydroxyapatite is the most common of the calcium phosphate salts found in human kidney stones. Performed By: #### 1 [id number] ####[facility] [address] [place] [address] Color (Stone) Brown Invalid Interpretation Code [facility] Comment on above: Performed By: #### 1 [id number] ####[facility] [address] [place] [address] Composition Comment Invalid Interpretation Code [facility] Comment on above: Result Comment: Perc entage (Represents the % composition) Performed By: #### 1 [id number] ####[address] [address] Disclaimer: Comment Invalid Interpretation Code [facility] Comment on above: Result Comment: This test was developed and its performance characteristics determined by [facility]. It has not been cleared or approved by the Food and Drug Administration. Performed at: [address] [id number] PhD Norman Rodrigez Performed By: #### 1 [id number] ####[place] [id number] Hydroxyapatite: 10 % Invalid Interpretation Code [facility] Comment on above: Performed By: #### 1 [id number] ####[facility] [address] [place] [address] Laboratory comment Yunier (Report) Comment Invalid Interpretation Code [facility] Comment on above: Result Comment: Selene cuevas questions regarding Calculi Analysis [facility] at: [phone]. Performed By: #### 1 [id number] ####[place] [id number] [place] [id number] Please Note: Comment Invalid Interpretation Code [facility] Comment on above: Result Comment: Calc marylin report will follow via computer, mail or coal washer delivery. Performed By: #### 1 [id number] ####[place] [address] [place] [address] Size (Stone) [Entitic vol] 3x3 Invalid Interpretation Code [facility] Comment on above: Result Comment: Mult iple pieces received. Dimensions of the largest piece reported. Performed By: #### 1 [id number] ####[facility] [address] [place] [address] Specimen source subject Nom Kidney Invalid Interpretation Code [facility] Comment on above: Performed By: #### 1 [id number] ####[facility] [address] [place] [address] Stone Photo Comment Invalid Interpretation Code [facility] Comment on above: Result Comment: Phot ograph will follow under a separate cover Performed By: #### 1 [id number] ####[facility] [address] [place] [address] Weight (Stone) 75 mg Invalid Interpretation Code [facility] Comment on above: Performed By: #### 1 [id number] ####[facility] [address] [place] [address] Progress Note-Physicianon Progress Note-Physician Patient: SUNSHINE RYDER Age: 23 years Sex: Female : 2000 Associated Diagnoses: None Author: MD Marlyn, Hiwot Valadez Postoperative Information Postoperative disposition: Postoperative disposition: To PACU. Optimetrix number: Optimetrix number [id number]. Anesthetic utilized: General. Health Status Allergies: Allergic [...] meets criteria ( To home ). Normal [facility] Comment on above: Result Comment: Elec tronically Signed By: MD Marlyn, Hiwot Valadez\.br\Date and Time Signed: 06/19/23 08:21 EDT Progress Note-Physician Patient: SUNSHINE RYDER Age: 23 years Sex: Female : 2000 Associated Diagnoses: None Author: MD Marlyn, Hiwot Valadez Preoperative Information Time patient last ate or [...] BID, # 10 tab(s), Refills(s) 0, Pharmacy: [facility]/pharmacy #[id number], 163.5, cm, 06/13/23 10:01:00 EDT, Height/Length Dosing, 87.1, kg, 06/13/23 10:01:00 EDT, Weight Dosing Flomax 0.4 mg Cap: 0.4 mg = 1 cap(s), Oral, Daily, # 30 cap(s), Refills(s) 0, Pharmacy: [facility]/pharmacy #[id number], 165, cm, 04/01/23 6:28:00 EST, [...] list: All Problems Hypertension / SNOMED CT 9650800176 / Confirmed ADHD / SNOMED CT 0780670778 / Confirmed Kidney stone / SNOMED CT 250141974 / Confirmed Flank pain / SNOMED CT 337460064 / Confirmed Abdominal pain / SNOMED CT 53617121 / Confirmed Smoker / SNOMED CT 736713450 / Confirmed Added secondary to documentation in Social History. Resolved: Kidney stone / SNOMED CT 746512845 Resolved: Migraine / SNOMED CT 28087405 Resolved: Acid reflux / SNOMED CT 4035418643 Resolved: Hypertension / SNOMED CT 99995805 Resolved: ADHD - Attention deficit disorder with hyperactivity / SNOMED CT 6991810693 Resolved: Stent placement / SNOMED CT 933184375 stent in ureter Histories Past Medical History: Resolved Kidney stone (881701754): Resolved. Migraine (17342797): Resolved. Acid reflux (5127150337): Resolved. Hypertension (73079316): Resolved. ADHD - Attention deficit disorder with hyperactivity (6835467539): Resolved. Stent placement (119362624): Resolved. Comments: 05/20/2023 EDT 11:51 XU Groves RN, Radha Patiño stent in ureter Family History: Kidney stone Mother Hypertension Mother Diabetes mellitus type 2 Grandparent Alcoholism Father Migraine Mother Stroke Grandparent Procedure history: Cystoscopy and uretoscopy (0144508791) on 06/13/2023 at 23 Years. Comments: 06/13/2023 14:34 XU Ventura RN, Jill Jerez Left stent removal, stone extraction, stone basket and homium laser cystoscopy, ESWL of left kidneym with stent placement (19743255) on 04/18/2023 at 23 Years. Tonsillectomy (090127902). wisdom extraction (18125784). Lithotripsy (192207764). Social History Social & Psychosocial Habits Alcohol [...] results Radiology results ECG interpretation Condition Plan [place] [employer] (ASA) physical status classification: Class II. Anesthetic Preoperative Plan Anesthesia: General. . Anesthetic plan, risks, benefits, and alternatives discussed with the patient and/or family. Risks discussed: nausea, vomiting, headache, sore throat, dental injury, serious complications. Patient verbalized understanding. Communication: face to face with patient 5 minutes. [facility] Comment on above: Result Comment: Elec tronically Signed By: MD Marlyn, Hiwot Valadez\.br\Date and Time Signed: 06/19/23 08:20 EDT Postoperative Documentson Postoperative Documents [id number]#1. 00TIFF [facility] IntraOperative Documentson 0 06-17-2023 IntraOperative Documents [id number]#1.0 0TIFF [facility] Consent for Anesthesiaon Consent for Anesthesia [id number]#1. 00TIFF [facility] Discharge Instructionson Discharge Instructions [id number]#1. 00TIFF [facility] IntraOperative Documentson 0 06-14-2023 IntraOperative Documents [id number]. 00TIFF [facility] Main OR Intraoperative Recor don 06-14-2023 Main OR Intraoperative Record IntraOp Document Type FT Summary Primary Physician: Viral CLAROS MD Finalized Date/Time: 06/14/23 13:16:52 Pt. Name: SUNSHINE RYDER/Sex: 2000 Female Med Rec #: [id number] Physician: Viral CLAROS MD Financial #: [id number] Pt. Type: A Room/Bed: [facility] Admit/Disch: 06/13/23 09:25:53 - 06/13/23 14:20:00 Institution: [...] Viral Rivera LPN, Cristine Avendaño Role Performed HASH SLINGER Surgeon - Primary Scrub - Primary Time In 06/13/23 11:37:00 06/13/23 11:37:00 06/13/23 11:37:00 Time Out 06/13/23 12:16:00 06/13/23 12:16:00 06/13/23 12:16:00 Procedure CYSTOSCOPY RETROGRADE CYSTOSCOPY RETROGRADE CYSTOSCOPY RETROGRADE STENT INSERTION(Left), STENT INSERTION(Left), STENT INSERTION(Left), CYSTOSCOPY W/ HOMIUM CYSTOSCOPY W/ HOMIUM CYSTOSCOPY W/ HOMIUM LASER(Left) LASER(Left) LASER(Left) Comments DR SKINNER SUPERVISING Last Modified By: Glenny Monsivais RN, RN, Glenny Sloan RN 06/13/23 12:16:06 06/13/23 12:16:06 06/13/23 12:16:06 Entry 4 Entry 5 Case Attendee Loi DOUGLAS, Jude Faith Role Performed Best Worker - Primary Scrub - Relief Time In 06/13/23 11:37:00 06/13/23 11:41:00 Time Out 06/13/23 12:16:00 06/13/23 12:16:00 Procedure CYSTOSCOPY RETROGRADE CYSTOSCOPY RETROGRADE STENT INSERTION(Left), STENT INSERTION(Left), CYSTOSCOPY W/ HOMIUM CYSTOSCOPY W/ HOMIUM LASER(Left) LASER(Left) Comments Last Modified By: Glenny Monsivais RN, RN, Kimberly Y 06/13/23 12:16:06 06/13/23 12:16:06 Perioperative Protocols FT [...] Time Out Robert Blackwell CRNA, Given Participants Viral CLAROS MD, Kipp LPN, Jessica D, Loi DOUGLAS, Maggie Gomez Kendall R Time [...] Yes No Primary Surgeon SHAWN COOK, Viral Garcia MD Start 06/13/23 11:45:00 06/13/23 11:45:00 Stop 06/13/23 [...] mechanical sources (more content not included)... Normal [facility] Pre-Op Checkliston Pre-Op Checklist [id number]#1. 00TIFF Normal [facility] XR Abdomen 1 Viewon 06-14-19 XR Abdomen [...] (Electronic Signature): 06/14/2023 4:10 pm Signed by: Joes Bajwa DO Transcribed by: WILMER Technologist: JASPER Technical Comments Radiation Dose: Ka,r in mGy = 1.80 DAP = 139.30 [facility] Consent for Procedure/Surger yon 06-13-2023 Consent for Procedure/Surgery [id number] 0TIFF Normal [facility] Consent for Treatmenton 05-20 Consent for Treatment [id number] 0TIFF Normal [facility] Discharge Instructionson Discharge Instructions SUNSHINE RYDER :2000 [...] Temperature above 101.5 degrees Pharmacy Information Other: [facility] [place] Discharge Instructions Discharge Instructions New Follow Up [...] prescription for antibiotics to your pharmacy. Where: [facility] [address] [place] [address]- Business (1) Medications What How Much When Instructions Next Dose New acetaminophen-hydrocod one (acetaminophen-hydroco done 325 mg-5 mg oral tablet) 1 Tablets By Mouth Every 4 hours as needed for Pain Duration: 2 Days Pickup at [facility]/pharmacy #[id number] New ciprofloxacin (Cipro 500 mg Tab) 1 Tablets By Mouth 2 times a day Pickup at [facility]/pharmacy #3471 Unchanged acetaminophen (Tylenol 325 mg [...] Mouth 2 times a day Pharmacy Information [facility]/pharmacy #[id number]: [address] [place], [place] [phone] Allergies codeine (Hives, Rash, Hyperactivity) Education Materials [facility] [place], [place] Dr. Viral Ramsay Post-operative Instructions for [...] other reasons. If it is to remain fdc, however, changes of the stent are required [...] normal activities, (more content not included)... Normal [facility] Comment on above: Result Comment: Elec tronically Signed By: Audrey DOUGLAS, Jill Jerez\.br\Date and Time Signed: 06/13/23 13:56 EDT H&P Updateon 06-13-2023 H&P Update [id number] 0TIFF Normal [facility] Inpatient Patient Summaryon 06-13-2023 Inpatient Patient Summary [place] [id number] [facility] Clinical Discharge Instructions PERSON INFORMATION Name: SUNSHINE RYDER [facility]#:[id number] PHYSICIANS Admitting Physician: Viral CLAROS MD Attending Physician: Viral CLAROS MD PCP: GAYE DILL MD Discharge Diagnosis: Comment: PATIENT EDUCATION INFORMATION Instructions: Pzit-Fjlv-nt Utereroscopy,Lithotrip sy, Stone Extraction, Stent Placement (Custom) Medication Leaflets: Follow up: With: Address: When: Viral CLAROS [address] [place] [address], [address], [place] [id number] Business (1) Comments: As we discussed, my [...] to your pharmacy. MEDICATION LIST New Medications [id number], [address] [place], [place] [phone], [phone] acetaminophen-hydrocod one (acetaminophen-hydroco done 325 mg-5 mg [...] Mouth 2 times a day. Comment: Normal [facility] Main OR PACU I Recordon 05-20 Main OR PACU I Record PACU Phase I Docum ent Type FT Summary Primary Physician: Viral CLAROS MD Finalized Date/Time: 06/13/23 12:55:58 Pt. Name: SUNSHINE RYDER/Sex: 2000 Female Med Rec #: [id number] Physician: Viral CLAROS MD Financial #: [id number] Pt. Type: A Room/Bed: Admit/Disch: 06/13/23 09:25:53 - Institution: Case Times [...] By: Merary Ludwig RN 06/13/23 12:55 Normal [facility] Main OR PACU II Recordon Main OR PACU II Record PACU Phase II Document Type FT Summary Primary Physician: Viral CLAROS MD Finalized Date/Time: 06/13/23 14:32:23 Pt. Name: SUNSHINE RYDER /Sex: 2000 Female Med Rec #: [id number] Physician: Viral CLAROS MD Financial #: [id number] Pt. Type: A Room/Bed: 05/19 Admit/Disch: 06/13/23 09:25:53 - Institution: Case Times [...] By: Jill Ventura RN 06/13/23 14:32 Normal [facility] Main OR Preoperative Recordo n 06-13-2023 Main OR Preoperative Record PreOp Document Type FT Summary Primary Physician: Viral CLAROS MD Finalized Date/Time: 06/13/23 11:44:36 Pt. Name: SUNSHINE RYDER /Sex: 2000 Female Med Rec #: [id number] Physician: Viral CLAROS MD Financial #: [id number] Pt. Type: A Room/Bed: [place] [address] Admit/Disch: 06/13/23 09:25:53 - Institution: Case Times [...] By: Glenny Monsivais RN 06/13/23 11:44 Normal [facility] Monitor Recordon 06-13-2023 Monitor Record [id number]. 00TIFF Normal [facility] Monitor Record [id number]. 00TIFF [facility] Operative Reporton Operative Report Patient: SUNSHINE [...] placed per urethra and a well-lubricated 22 German is urethroscope with 30 degree lens then [...] for evaluation. She is transferred to the [place] [place] and then back to PACU in satisfactory [...] 1 ml. Complications: None. Anesthesia type: General. Normal [facility] Comment on above: Result Comment: Elec tronically Signed By: Viral CLAROS MD\.br\Date and Time Signed: 06/13/23 12:25 EDT Outpatient Surgery Discharge Instructionon 06-13-2023 Outpatient Surgery Discharge Instruction [address] [address] Patient Discharge Instructions PERSON INFORMATION Name: SUNSHINE RYDER Date of : 2000 Current Date: 06/13/2023 12:27:39 PHYSICIANS Admitting Physician: Viral CLAROS MD Discharge Diagnosis: BRITNI SUNSHINE Avendaño has been given the following list of [...] Follow up: With: Address: When: Viral CLAROS [address] [place] [address], [address], [place] [address] Business (1) Comments: As we discussed, my [...] antibiotics to your pharmacy. Pharmacy Information: Other: [facility] You may receive a survey from [employer] asking you to rate your care experience. Your feedback is important and will help us understand what we do well and how we can improve the quality of care we provide to you, your loved ones and our community. It?s an honor to serve you. Thank you for choosing [facility] HERE ARE THE MEDICATION CHANGES THAT OCCURRED DURING YOUR HOSPITAL STAY New Medications [id number], [address] [place], [place] [phone], [phone] acetaminophen-hydrocod one (acetaminophen-hydroco done 325 mg-5 mg [...] times a day. PATIENT EDUCATION INFORMATION Instructions: [facility] [place], [place] Dr. Viral Ramsay Post-operative Instructions for [...] stent will (more content not included)... Normal [facility] Patient Education - Texton 0 06-13-2023 Patient Education - Text [facility] [place], [place] Dr. Viral Ramsay Post-operative Instructions for [...] other reasons. If it is to remain fdc, however, changes of the stent are required [...] arrange for your post-operative appointment (with XRAY) [phone] Normal [facility] SEROLOGYOrdered By: Pati Tuttle on 06-13-2023 HCG.beta subunit (U) [Moles/Vol] Negative Normal [facility] Man Sero U BetaHcg Qualon 06-13-2023 HCG.beta subunit (U) [Moles/Vol] Negative Normal [facility] Comment on above: Performed By: #### 2 [id number] ####[facility] [place] [address] XR Abdomen 1 Viewon 06-13-19 24 XR [...] mGy = 0 DAP = 0 Normal [facility] Ambulatory Visit Summaryon 0 06-05-2023 Ambulatory Visit Summary SUNSHINE RYDER :2000 Visit Date:06/05/2023 Ambulatory Visit Instructions Your Diagnosis Kidney stone Your Care Team Attending Physician - Viarl CLAROS MD Primary Care Physician - GAYE [...] Follow-Up Appointments 2023 11:15 AM EDT Where: [facility] You Need to Schedule the Following Appointments Follow Up with Viral CLAROS MD, URHaroon When: Where: [address] [place], [place] [address] [address] [address]- Medications What How Much When Instructions Unchanged [...] including vitamins, herbs, eye drops, creams, and mcwo-fad-zexsjmn medicines. ? Any problems you or family [...] fatty foods (more content not included)... Normal [facility] Patient Educationon 06-05-19 Patient Education Nephrology Lithotripsy [...] including vitamins, herbs, eye drops, creams, and mpvm-ery-hjuhvlr medicines. ? Any problems you or family [...] tells you to take them. ? Taking qitx-crk-zfslhly medicines, vitamins, herbs, and supplements. Tests You [...] safe. Summary (more content not included)... Normal [facility] Urology Office/Clinic Noteon 06-05-2023 Urology Office/Clinic Note [...] with voice recognition artificial intelligence software, specifically [employer], [employer] and or [employer]. Substitutions may have occurred due to the inherent limitations of voice recognition and artificial intelligence software. 1. Kidney stone (N20.0: Calculus of kidney) Pt was seen at [facility] on 01/22/23 due to left sided [...] right interpolar renal calculus. Pt presented to [facility] 05/20/23 with hematuria. Reports gross hematuria [...] Information SHAWN COOK, Viral P, URL [address] [address]- Additional Instructions: Proceed with stone procedure Patient Education Lithotripsy I, Judy Daily, personally scribed for Dr. Claros on 06/05/2023 08:46:56. . Documentation recorded by the scribe, Judy Daily, accurately reflects the services(s) I performed and [...] per day, (more content not included)... Normal [facility] Comment on above: Result Comment: Elec tronically Signed By: Viral CLAROS MD\.br\Date and Time Signed: 06/05/23 08:50 EDT\.br\Electronically Co-Signed By: Judy Daily\.br\Date and Time Co-Signed: 06/05/23 08:47 EDT Office Visiton 05-28-2023 Follow-up visit [id number] Ana Luisa Ryder 2000 F Date Provider Department Center 05/28/2023 384Abbi-VELMA CHAND Family History Problem Relation Age of Onset Hypertension Mother Heart attack Maternal Grandmother Heart attack Maternal Grandfather Stroke Maternal Grandfather Family Status - Relation Status Age at Mother Maternal Grandmother Maternal Grandfather Level of Service:64726 OR OFFICE/OUTPATIENT ESTABLISHED MOD MDM 30 MIN Reason for Visit and Comments: Follow-up [064917] - Last saw Camilo in 2021 Normal [facility] Orders Onlyon 05-28-2023 Orders Only [id number] Ana Luisa Ryder 2000 F Date Provider Department Center 05/28/2023 APRIL COSME RANDY Peralta Family History Problem Relation Age of Onset Hypertension Mother Heart attack Maternal Grandmother Heart attack Maternal Grandfather Stroke Maternal Grandfather Family Status - Relation Status Age at Mother Maternal Grandmother Maternal Grandfather [facility] C Urineon 05-22-2023 Bacteria identified Cx [...] Locations R1: This test was performed at: [facility], [address] [place], [address]- , , [facility] Comment on above: Performed By: #### 2 [id number], [id number], [id number] #### [facility] Laboratory [address] [place] [address] ED Note-Physicianon 05-21-19 ED Note-Physician [id number] 0TIFF [facility] ED Note-Physician [id number]. 00TIFF [facility] BMPon 05-20-2023 Anion gap [Moles/Vol] 13 mmol/L Normal 6-16 [facility] Comment on above: Performed By: #### 2 872862, [id number], 20409754, 4499722 ####[facility] [address] [place] [address] Calcium [Mass/Vol] 9.2 mg/dL Normal 8.9-11.1 [facility] Comment on above: Performed By: #### 2 092328, 47723210, 51085093, 0191566 ####[facility] [address] [place] [address] Chloride [Moles/Vol] 109 mmol/L Normal 101-111 [facility] Comment on above: Performed By: #### 2 912586, 41208629, 48074408, 8118391 ####[facility] [address] [place] [address] CO2 [Moles/Vol] 19 mmol/L Low 21-[address] [facility] Comment on above: Performed By: #### 2 847473, 16493423, 48180567, 2569244 ####[facility] [address] [place] [address] Creatinine [Mass/Vol] 0.9 mg/dL Normal 0.5-1.3 [facility] Comment on above: Performed By: #### 2 983472, 75797536, 49399077, 4307054 ####[facility] [address] [place] [address] Glucose [Mass/Vol] 114 mg/dL Normal 55-199 [facility] Comment on above: Performed By: #### 2 878494, 12807911, 65588694, 4554098 ####[facility] [address] [place] [address] Potassium [Moles/Vol] 4.0 mmol/L Normal 3.5-5.3 [facility] Comment on above: Performed By: #### 2 904316, 48955535, 75273677, 3497184 ####[facility] [address] [place] [address] Sodium [Moles/Vol] 137 mmol/L Normal 135-145 [facility] Comment on above: Performed By: #### 2 513627, 84012689, 93535351, 0888129 ####[facility] [address] [place] [address] Urea nitrogen [Mass/Vol] 16 mg/dL Normal 5-21 [facility] Comment on above: Performed By: #### 2 387510, 57017671, 88695609, 6735995 ####[facility] [address] [place] [address] Urea nitrogen/Creatinine [Mass ratio] 18 No Units Normal 10-20 [facility] Comment on above: Performed By: #### 2 934898, 27204331, 36556934, 5925397 ####[facility] [address] [place] [address] CBC w/ Auto Diffon 4 Basophils/100 WBC (Bld) 1.0 % Normal 0.0-2.0 [facility] Comment on above: Performed By: #### 2 518212, 25387528, 43809920, 4882447 ####[facility] [address] [place] [address] Basophils/Leukocytes Auto (Bld) [Pure # fraction] 0.1 E9/L Normal 0.0-0.2 [facility] Comment on above: Performed By: #### 2 142778, 13180952, 07132315, 3696501 ####[address] [address] Eosinophils (Bld) [#/Vol] 0.3 E9/L Normal 0.0-0.5 [facility] Comment on above: Performed By: #### 2 631709, 01909781, 12543245, 7242262 ####[address] [address] Eosinophils/100 WBC (Bld) 2.2 % Normal 0.0-8.0 [facility] Comment on above: Performed By: #### 2 590201, 86035485, 39932059, 0483033 ####[address] [address] Erythrocyte distribution width (RBC) [Ratio] 13.1 % Normal 10.9-14.2 [facility] Comment on above: Performed By: #### 2 358359, 90822528, 18240080, 5613769 ####[address] [address] Hematocrit (Bld) [Volume fraction] 41.5 % Normal 34.0-46.0 [facility] Comment on above: Performed By: #### 2 059706, 16745783, 29321676, 0206162 ####[address] [address] Hemoglobin (Bld) [Mass/Vol] 14.0 g/dL Normal 12.0-16.0 [facility] Comment on above: Performed By: #### 2 323267, 97937048, 00892832, 9427300 ####[address] [address] Lymphocytes (Bld) [#/Vol] 2.4 E9/L Normal 1.0-4.0 [facility] Comment on above: Performed By: #### 2 906403, 28431361, 95445426, 8341984 ####[facility] [address] [place] [address] Lymphocytes/100 WBC (Bld) 20.0 % Normal 14.0-50.0 [facility] Comment on above: Performed By: #### 2 487390, 22747581, 70121338, 5223473 ####[address] [address] MCH (RBC) [Entitic mass] 30.2 pg Normal 27.0-34.0 [facility] Comment on above: Performed By: #### 2 816935, 86288156, 97808303, 8920276 ####[address] [address] MCHC (RBC) [Mass/Vol] 33.9 g/dL Normal 31.4-36.0 [facility] Comment on above: Performed By: #### 2 869434, 48958094, 42212210, 8411911 ####[address] [address] MCV (RBC) [Entitic vol] 89.1 fL Normal 80.0-100.0 [facility] Comment on above: Performed By: #### 2 097065, 72343455, 94566340, 0881945 ####[address] [address] Monocytes (Bld) [#/Vol] 0.8 E9/L Normal 0.2-1.0 [facility] Comment on above: Performed By: #### 2 798280, 13934034, 66199563, 3576969 ####[address] [address] Neutrophils (Bld) [#/Vol] 8.3 E9/L High 2.0-7.5 [facility] Comment on above: Performed By: #### 2 376332, 00343531, 51280823, 1877941 ####[place] [address] [place] [address] Neutrophils/100 WBC (Bld) 70.2 % Normal 36.0-75.0 [facility] Comment on above: Performed By: #### 2 628930, 79122670, 97182131, 4757195 ####[address] [address] Platelet mean volume (Bld) [Entitic vol] 8.8 fL Normal 6.4-10.8 [facility] Comment on above: Performed By: #### 2 269146, 21371846, 34956812, 2965919 ####[address] [address] Platelets (Bld) [#/Vol] 259.0 E9/L Normal 150.0-500.0 [facility] Comment on above: Performed By: #### 2 887758, 33187406, 47494630, 1386108 ####[address] [address] RBC (Bld) [#/Vol] 4.7 E12/L Normal 4.3-5.9 [facility] Comment on above: Performed By: #### 2 747947, 26839446, 06315434, 5397780 ####[address] [address] WBC corrected for nucl RBC Auto (Bld) [#/Vol] 11.7 E9/L High 4.0-11.0 [facility] Comment on above: Performed By: #### 2 894005, 65753574, 61828416, 2119323 ####[address] [address] CHEMISTRYOrdered By: SYSTEM SYSTEM on 05-20-2023 Anion gap [Moles/Vol] 13 [...] 33.6 s Normal 25.1 - 36.5 second(s) [facility] Comment on above: Interpretive Data: [...] the same coagulation reagent and instrumentation as [facility]. Currently there are no coagulation studies available worldwide for children to 14 days, and no normal ranges. Heparin therapeutic range (represented by Anti-Factor Xa activity of 0.2 - 0.4 U/mL) corresponds to PTT of 56.6 - 109.0 sec. INR Coag (PPP) [Relative time] 1.08 {INR} Invalid Interpretation Code [facility] Comment on above: Interpretive Data: I NR results are specifically intended to assess patients stabilized on long-term Anticoagulation therapy suggested INR s Less Intensive Anticoagulation 2.0 3.0 Conventional Range 3.0 4.5 PT Coag (PPP) [Time] 12.1 s Normal 9.4 - 1 2.5 second(s) [facility] Comment on above: Interpretive Data: [...] the same coagulation reagent and instrumentation as [facility]. Currently there are no coagulation studies available worldwide for children to 14 days, and no normal ranges. Consent for Treatmenton Consent for Treatment [id number] 0TIFF Normal [facility] Discharge Instructionson Discharge Instructions [id number]. 00TIFF Normal [facility] ED Clinical Summaryon 2023 ED Clinical Summary [place] [id number] ED Clinical Summary Person Information Name: SUNSHINE RYDER [place] Age: 23 Years : 2000 Sex: Female Language: Indonesian PCP: GAYE DILL MD Marital Status: Single [...] 05/20/2023 14:38:45 05/20/2023 14:38:45 05/20/2023 14:38:45 ADDRESS: [address] [place] [phone] [facility] DOC NOTES: MEDICAL INFORMATION: Prescriptions Given: Medications [...] Follow up: With: Address: When: Viral CLAROS [address] [place] [address], [address], [facility] [employer] [address] [place], [place] [address] Business (1) In 3 days 05/23/2023 Comments: Call Dr for diagnosis based follow up. Dr. Claros's office is going to call. Call the office if they do not call you in the next couple days. Continue taking Bactrim as prescribed. Return to the emergency room if your pain gets worse, fever or any new symptoms. With: Address: When: GAYE DILL [address] [place], [place] [id number] Business (1) In 3 days DIAGNOSIS: 1:Flank pain; 2:Hematuria Normal [facility] ED Note-Physicianon 05-20-19 ED Note-Physician Basic Information Time Seen: Lawson Carbone M.D. 05/20/2023 11:48 Chief Complaint pt presents w/ [...] vomiting. She states she was seen at [facility] on Saturday and Saturday. She states she [...] and Complexity of Problems Differential Diagnosis: [] [facility] Data External documents reviewed: ER visit document from [facility] My EKG interpretation: [] My CT interpretation: [...] the stent. The patient was seen at [facility] ER on Saturday and Saturday. Records [...] medications Follow-up With When Contact Information Viral CLAROS In 3 days 05/23/[address] [address]- [phone] (more content not included)... Normal [facility] Comment on above: Result Comment: Elec tronically Signed By: Raf Adler, Lawson Pryor\.eduardo\Date and Time Signed: 05/20/23 15:04 EDT ED [...] by your health care provider. ? Take alyh-ezh-hgvwxbf and prescription medicines only as told by [...] provider. Document Revised: 04/17/2021 Document Reviewed: 04/17/2021 [employer] Patient Education ? 2022 [employer]. Urology Hematuria, Adult Hematuria is blood in [...] these instructions at home: Medicines ? Take zeeu-jho-asrgwox and prescription medicines only as told by [...] the departmen (more content not included)... Normal [facility] ED Patient Summaryon 024 ED Patient Summary [address] [address] Patient Discharge Instructions Person Information Name: SUNSHINE RYDER Age: 23 Years Arrival Date: 05/20/2023 11:32:16 Discharge Diagnosis: 1:Flank pain; 2:Hematuria Primary Care Physician: GAYE DILL MD Provider Information Primary Provider: Lawson Carbone M.D. Advanced Home Supervisor:None The exam and treatment you received in the Emergency Department were for an urgent problem and are not intended as complete care. It is important that you follow up with a doctor, nurse practitioner, or physician?s judicial administrative assistant for ongoing care. If your symptoms [...] Follow-up Instructions: With: Address: When: Viral CLAROS [address] [place] [address], [address], [address] [address] [facility] (1) In 3 days 05/23/2023 Comments: Call Dr for diagnosis based follow up. Dr. Claros's office is going to call. Call the office if they do not call you in the next couple days. Continue taking Bactrim as prescribed. Return to the emergency room if your pain gets worse, fever or any new symptoms. With: Address: When: GAYE DILL [address] [place] [address] Business (1) In 3 days In the [...] opioids can be used to help relieve zhycmuez-ha-hmzjpe pain and are often prescribed following a [...] drug take-ba (more content not included)... Normal [facility] HEMATOLOGYOrdered By: SYSTEM SYSTEM on 05-20-2023 Basophils/100 [...] Remisol Heme Outside Recordson 05-20-2023 Outside Records [id number]#1. [id number] Normal [facility] PT & PTTon 05-20-2023 aPTT Coag (PPP) [Time] 33.6 second(s) Normal 25.1-36.5 [facility] Comment on above: Result Comment: Para meter 15 days - 4 weeks 1 - 5 months 6 - 11 months 1 - 5 years 6 - 10 years 11 - 17 years PTT Mean: 35.4 (27.6-45.6) Mean: 33.5 (24.8-40.7) Mean: 32.4 (25.1-40.7) Mean: 31.6 (24.0-39.2) Mean: 31.6 (26.9-38.7) Mean: 31.0 (24.6-38.4) Pediatric Reference ranges were obtained from a study by Robert Malin, et al. prepared from 1437 samples obtained at 7 different centers using the same coagulation reagent and instrumentation as [facility]. Currently there are no coagulation studies available worldwide for children to 14 days, and no normal ranges. Heparin therapeutic range (represented by Anti-Factor Xa activity of 0.2 - 0.4 U/mL) corresponds to PTT of 56.6 - 109.0 sec. Performed By: #### 2 [id number], [id number], [id number], [id number] ####[facility] [address] [place] [address] INR Coag (PPP) [Relative time] 1.08 {INR} Invalid Interpretation Code [facility] Comment on above: Result Comment: INR results are specifically intended to assess patients stabilized on long-term Anticoagulation therapy suggested INR?s ?Less Intensive Anticoagulation? 2.0 ? 3.0 Conventional Range 3.0 ? 4.5 Performed By: #### 2 055075, [id number], [id number], [id number] ####[facility] [address] [place] [address] PT Coag (PPP) [Time] 12.1 second(s) Normal 9.4-12.5 [facility] Comment on above: Result Comment: 15 d [...] the same coagulation reagent and instrumentation as [facility]. Currently there are no coagulation studies available worldwide for children to 14 days, and no normal ranges. Performed By: #### 2 330254, [id number], [id number], [id number] ####[facility] [address] [place] [address] SEROLOGYOrdered By: Mike Herron on 05-20-2023 HCG.beta subunit (U) [Moles/Vol] Negative Normal [facility] Man Sero U BetaHcg Qualon 05-20-2023 HCG.beta subunit (U) [Moles/Vol] Negative Normal [facility] Comment on above: Performed By: #### 2 [id number], [id number], [id number] #### [facility] [address] [place] [address] UA with Cult Rflxon 05-20-19 24 Color (U) Light-[place] Abnormal Yellow [facility] Comment on above: Result Comment: Micr oscopic readings are only performed on those samples that meet specific criteria set forth by [facility]. Performed By: #### 2 9311942, [id number], [id number] #### [facility] [address] [place] [address] Glucose (U) [Mass/Vol] Negative Normal Negative [facility] Comment on above: Performed By: #### 2 2108920, [id number], [id number] #### [facility] [address] [place] [address] Ketones Ql (U) Negative Normal Negative [facility] Comment on above: Performed By: #### 2 7770594, [id number], [id number] #### [facility] [address] [place] [address] UA Blood 3+ mg/dL Abnormal Negative [facility] Comment on above: Performed By: #### 2 9117136, [id number], [id number] #### [facility] [address] [place] [address] UA Bacteria Trace Normal Trace [facility] Comment on above: Performed By: #### 2 3760872, [id number], [id number] #### [facility] [address] [place] [address] UA Clarity Turbid Abnormal Clear [facility] Comment on above: Performed By: #### 2 3925388, [id number], 6695796 #### [facility] [address] [place] [address] UA Leuk Est 250 Mitchell/uL Abnormal Negative [facility] Comment on above: Performed By: #### 2 9213947, [id number], 4990994 #### [facility] [address] [place] [address] UA Mucous 1+ [id number] Abnormal Negative [facility] Comment on above: Performed By: #### 2 5081889, [id number], 4821263 #### [facility] [address] [place] [address] UA Nitrite Negative Normal Negative [facility] Comment on above: Performed By: #### 2 6103216, [id number], [id number] #### [facility] [address] [place] [address] UA pH 6.0 Invalid Interpretation Code 5.0-9.0 [facility] Comment on above: Performed By: #### 2 3118329, [id number], 8375983 #### [facility] [address] [place] [address] UA Protein 1+ mg/dL Abnormal Negative [facility] Comment on above: Performed By: #### 2 7320657, [id number], [id number] #### [facility] [address] [place] [address] UA RBC >75 Abnormal 0-3 [facility] Comment on above: Performed By: #### 2 7399634, [id number], [id number] #### [facility] [address] [place] [address] UA Spec Grav 1.015 Invalid Interpretation Code 1.005-1.030 [facility] Comment on above: Performed By: #### 2 7139510, [id number], [id number] #### [facility] [address] [place] [address] UA Squam Epithelial 0-2 Normal 0-[address] [facility] Comment on above: Performed By: #### 2 9095879, [id number], 5332856 #### [facility] [address] [place] [address] UA Urobilinogen Negative Normal Negative [facility] Comment on above: Performed By: #### 2 0572408, [id number], 5731407 #### [facility] [address] [place] [address] UA WBC 6-15 Abnormal 0-5 [facility] Comment on above: Performed By: #### 2 8203092, [id number], 5194973 #### [facility] [address] [place] [address] Urobilinogen (U) [Mass/Vol] Negative Normal Negative [facility] Comment on above: Performed By: #### 2 1111565, [id number], 0599844 #### [facility] [address] [place] [address] UA Spec Desc Clean Catch Normal [facility] Comment on above: Performed By: #### 2 3769005, [id number], [id number] #### [facility] [address] [place] [address] URINALYSISOrdered By: SYSTEM SYSTEM on 05-20-2023 Color (U) Light-[place] 1 *ABN* (05/20/23 11:54 AM) Invalid Interpretation Code Yellow [facility] UA Auto SS Comment on above: Interpretive Data: M icroscopic readings are only performed on those samples that meet specific criteria set forth by [facility]. Glucose (U) [Mass/Vol] Negative Normal Negativemg/ dL [facility] UA Auto SS Ketones Ql (U) Negative Normal Negativemg/ dL FT UA Auto SS UA Bacteria Trace graded/HPF Normal Tracegraded /HPF FT UA Auto SS UA Blood 3+ mg/dL Invalid Interpretation Code Negativemg/ dL FT UA Auto SS UA Clarity Turbid *ABN* (05/20/23 11:54 AM) Invalid Interpretation Code Clear FT UA Auto SS UA Leuk Est 250 Mitchell/uL Mitchell/uL Invalid Interpretation Code NegativeLeu /uL FT UA Auto SS UA Mucous 1+ graded/LPF [...] REPORT Dictated: 05/20/2023 1:16 pm Viraj Jordan MD. Signed (Electronic Signature): 05/20/2023 1:16 pm Signed by: Viraj Jordan MD Transcribed by: WILMER Technologist: MARY Vega [facility] XR Abdomen 1 Viewon 05-20-19 24 XR Abdomen 1 View Exam Date/Time: 05/20/2023 [...] REPORT Dictated: 05/20/2023 12:44 pm Viraj Jordan MD. Signed (Electronic Signature): 05/20/2023 12:44 pm Signed by: Viraj Jordan MD Transcribed by: WILMER Technologist: YVETTE Technical Comments Radiation Dose: Ka,r in mGy = na DAP = na Normal [facility] eGFRon 05-20-2023 eGFR 93 mL/min/1.73 m2 Normal >=59 [facility] Comment on above: Order Comment: Order added by Discern Expert. Performed By: #### 2 971971, [id number], [id number], [id number] ####[facility] [address] [place] [address] BASIC METABOLIC PANLon 05-18 Anion gap [Moles/Vol] 6 mmol/L Normal 5-15 [facility] Comment on above: Performed By: #### C BCA, BMP #### [facility] ([id number]) [address] [place] [address] Calcium [Mass/Vol] 8.9 mg/dL Normal 8.5-10.5 [facility] Comment on above: Performed By: #### C DAVID, BMP #### [facility] ([id number]) [address] [place] [address] Chloride [Moles/Vol] 110 mmol/L High 98-109 [facility] Comment on above: Performed By: #### C DAVID, BMP #### [facility] ([id number]) [address] [place] [address] CO2 [Moles/Vol] 19 mmol/L Low 22-32 [facility] Comment on above: Performed By: #### C DAVID, BMP #### [facility] ([id number]) [address] [place] [address] Creatinine [Mass/Vol] 0.83 mg/dL Normal 0.40-1.00 [facility] Comment on above: Result Comment: METH OD TRACEABLE TO IDMS STANDARD Performed By: #### C DAVID, BMP #### [facility] ([id number]) [address] [place] [address] eGFR (CKD-EPI) NON-RACE DEPENDENT >90 Normal >59 [facility] Comment on above: Result Comment: Reported eGFR is based on the CKD-EPI 2020 equation that does not use a race coefficient. Performed By: #### C DAVID, BMP #### [facility] ([id number]) [address] [place] [address] 49981 Glucose [Mass/Vol] 124 mg/dL High 65-99 [facility] Comment on above: Performed By: #### C DAVID, BMP #### [facility] ([id number]) [address] [place] [address] Potassium [Moles/Vol] 3.8 mmol/L Normal 3.5-5.0 [facility] Comment on above: Performed By: #### C DAVID, BMP #### [facility] ([id number]) [address] [place] [address]96 Sodium [Moles/Vol] 135 mmol/L Normal 134-146 [facility] Comment on above: Performed By: #### C DAVID, BMP #### [facility] ([id number]) [address] [place] [address]38[address] Urea nitrogen [Mass/Vol] 20 mg/dL Normal 5-23 [facility] Comment on above: Performed By: #### C DAVID, BMP #### [facility] ([id number]) [address] [place] [address]333 CBC AND AUTO DIFFon 05-19-19 24 ABSOLUTE BASOPHIL 0.1 X10E9/L Normal 0.0-0.2 [facility] Comment on above: Performed By: #### C DAVID, BMP #### [facility] ([id number]) [address] [place] [address] ABSOLUTE NEUTROPHIL 14.5 X10E9/L High 1.5-6.6 [facility] Comment on above: Performed By: #### C DAVID, BMP #### [facility] ([id number]) [address] [place] [address]8717 Basophils/100 WBC (Bld) 0.5 % Normal [facility] Comment on above: Performed By: #### C DAVID, BMP #### [facility] ([id number]) [address] [place] [address] 47580 Eosinophils (Bld) [#/Vol] 0.1 10*3/uL Normal 0.0-0.4 [facility] Comment on above: Performed By: #### C DAVID, BMP #### [facility] ([id number]) [address] [place] [address] 12233 Eosinophils/100 WBC (Bld) 0.8 % Normal [facility] Comment on above: Performed By: #### C DAVID, BMP #### [facility] ([id number]) [address] [place] [address]7301 Erythrocyte distribution width (RBC) [Ratio] 13.1 % Normal 11.5-15.0 [facility] Comment on above: Performed By: #### C DAVID, BMP #### [facility] ([id number]) [address] [place] [address] 03489 Hematocrit (Bld) [Volume fraction] 42.0 % Normal 35-47 [facility] Comment on above: Performed By: #### C DAVID, BMP #### [facility] ([id number]) [address] [place] [address] 24205 Hemoglobin (Bld) [Mass/Vol] 14.4 g/dL Normal 11.7-15.5 [facility] Comment on above: Performed By: #### C DAVID, BMP #### [facility] ([id number]) [address] [place] [address] 50762 Lymphocytes (Bld) [#/Vol] 1.6 10*3/uL Normal 1.0-3.5 [facility] Comment on above: Performed By: #### C DAVID, BMP #### [facility] ([id number]) [address] [place] [address] 40715 Lymphocytes/100 WBC (Bld) 9.0 % Normal [facility] Comment on above: Performed By: #### C DAVID, BMP #### [facility] ([id number]) [address] [place] [address] 34732 MCH (RBC) [Entitic mass] 30.1 pg Normal 27-34 [facility] Comment on above: Performed By: #### C DAVID, BMP #### [facility] ([id number]) [address] [place] [address] 43568 MCHC (RBC) [Mass/Vol] 34.3 g/dL Normal 32-36 [facility] Comment on above: Performed By: #### C DAVID, BMP #### [facility] ([id number]) [address] [place] [address] 79764 MCV (RBC) [Entitic vol] 88 fL Normal 80-100 [facility] Comment on above: Performed By: #### C DAVID, BMP #### [facility] ([id number]) [address] [place] [address] 59538 Monocytes (Bld) [#/Vol] 0.9 10*3/uL Normal 0-0.9 [facility] Comment on above: Performed By: #### C DAVID, BMP #### [facility] ([id number]) [address] [place] [address] 07396 Monocytes/100 WBC (Bld) 5.2 % Normal [facility] Comment on above: Performed By: #### Braxton HERNANDEZ, BMP #### [facility] ([id number]) [address] [place] [address] 73713 Neutrophils/100 WBC (Bld) 84.5 % Normal [facility] Comment on above: Performed By: #### Braxton HERNANDEZ, BMP #### [facility] ([id number]) [address] [place] [address] 74842 Platelet mean volume (Bld) [Entitic vol] 8.5 fL Normal 7-12 [facility] Comment on above: Performed By: #### C DAVID, BMP #### [facility] ([id number]) [address] [place] [address] 64037 Platelets (Bld) [#/Vol] 300 10*3/uL Normal 150-450 [facility] Comment on above: Performed By: #### Braxton HERNANDEZ, BMP #### [facility] ([id number]) [address] [place] [address] 67055 RBC COUNT 4.78 X10E12/L Normal 3.80-5.20 [facility] Comment on above: Performed By: #### C BCA, BMP #### [facility] ([id number]) [address] [place] [address] 21292 WBC (Bld) [#/Vol] 17.2 10*3/uL High 4.0-11.0 [facility] Comment on above: Performed By: #### C DAVID, BMP #### [facility] ([id number]) [address] [place] [address] 87823 UA (MICROSCOPIC)on 4 R.B.CELLS >100 High 0-5 [facility] Comment on above: Performed By: #### U DEEPALI #### [facility] ([id number]) [address] [place] [address] 70589 SQUAMOUS EPITHELIUM PRESENT Normal 0-5 [facility] Comment on above: Performed By: #### U DEEPALI #### [facility] ([id number]) [address] [place] [address] 64611 Urinalysis dipstick W Reflex Microscopic panel (U) Results maybe affected due to High RBC count, interpretwith caution. Normal [facility] Comment on above: Performed By: #### U DEEPALI #### [facility] ([id number]) [address] [place] [address] 28276 W.B.CELLS PRESENT Normal 0-5 [facility] Comment on above: Performed By: #### U DEEPALI #### [facility] ([id number]) [address] [place] [address] 38520 URINE CULTUREon 05-19-2023 Bacteria identified Cx Nom (U) CULTURE RESULTS <10,000 ORGANISMS/ML NORMAL URO GENITAL FARIHA Normal [facility] Comment on above: Performed By: #### 6 30-4 #### [facility] ([id number]) [address], [address] [place] [address] CBC AND AUTO DIFFon 05-17-19 24 ABSOLUTE BASOPHIL 0.1 X10E9/L Normal 0.0-0.2 [facility] Comment on above: Performed By: #### C DAVID, CMP #### [facility] ([id number]) [address] [place] [address] 13395 ABSOLUTE NEUTROPHIL 8.3 X10E9/L High 1.5-6.6 [facility] Comment on above: Performed By: #### C DAVID, CMP #### [facility] ([id number]) [address] [place] [address] 78346 Basophils/100 WBC (Bld) 0.5 % Normal [facility] Comment on above: Performed By: #### C DAVID, CMP #### [facility] ([id number]) [address] [place] [address] 32167 Eosinophils (Bld) [#/Vol] 0.3 10*3/uL Normal 0.0-0.4 [facility] Comment on above: Performed By: #### C DAVID, CMP #### [facility] ([id number]) [address] [place] [address] 84443 Eosinophils/100 WBC (Bld) 2.7 % Normal [facility] Comment on above: Performed By: #### C DAVID, CMP #### [facility] ([id number]) [address] [place] [address] 44124 Erythrocyte distribution width (RBC) [Ratio] 13.5 % Normal 11.5-15.0 [facility] Comment on above: Performed By: #### C BCA, CMP #### [facility] ([id number]) [address] [place] [address] 28906 Hematocrit (Bld) [Volume fraction] 41.5 % Normal 35-47 [facility] Comment on above: Performed By: #### C DAVID, CMP #### [facility] ([id number]) [address] [place] [address] 65543 Hemoglobin (Bld) [Mass/Vol] 14.5 g/dL Normal 11.7-15.5 [facility] Comment on above: Performed By: #### C DAVID, CMP #### [facility] ([id number]) [address] [place] [address] 93600 Lymphocytes (Bld) [#/Vol] 2.5 10*3/uL Normal 1.0-3.5 [facility] Comment on above: Performed By: #### C DAVID, CMP #### [facility] ([id number]) [address] [place] [address] 98530 Lymphocytes/100 WBC (Bld) 20.8 % Normal [facility] Comment on above: Performed By: #### C DAVID, CMP #### [facility] ([id number]) [address] [place] [address] 99042 MCH (RBC) [Entitic mass] 30.7 pg Normal 27-34 [facility] Comment on above: Performed By: #### C BCA, CMP #### [facility] ([id number]) [address] [place] [address] 24750 MCHC (RBC) [Mass/Vol] 34.8 g/dL Normal 32-36 [facility] Comment on above: Performed By: #### C BCA, CMP #### [facility] ([id number]) [address] [place] [address] 81758 MCV (RBC) [Entitic vol] 88 fL Normal 80-100 [facility] Comment on above: Performed By: #### C BCA, CMP #### [facility] ([id number]) [address] [place] [address] 87361 Monocytes (Bld) [#/Vol] 0.8 10*3/uL Normal 0-0.9 [facility] Comment on above: Performed By: #### C DAVID, CMP #### [facility] ([id number]) [address] [place] [address] 75713 Monocytes/100 WBC (Bld) 6.6 % Normal [facility] Comment on above: Performed By: #### C DAVID, CMP #### [facility] ([id number]) [address] [place] [address] 14868 Neutrophils/100 WBC (Bld) 69.4 % Normal [facility] Comment on above: Performed By: #### C DAVID, CMP #### [facility] ([id number]) [address] [place] [address] 28360 Platelet mean volume (Bld) [Entitic vol] 8.8 fL Normal 7-12 [facility] Comment on above: Performed By: #### C DAVID, CMP #### [facility] ([id number]) [address] [place] [address] 05341 Platelets (Bld) [#/Vol] 312 10*3/uL Normal 150-450 [facility] Comment on above: Performed By: #### C DAVID, CMP #### [facility] ([id number]) [address] [place] [address] 57783 RBC COUNT 4.72 X10E12/L Normal 3.80-5.20 [facility] Comment on above: Performed By: #### C BCA, CMP #### [facility] ([id number]) [address] [place] [address] 97433 WBC (Bld) [#/Vol] 11.9 10*3/uL High 4.0-11.0 [facility] Comment on above: Performed By: #### C DAVID, CMP #### [facility] ([id number]) [address] [place] [address] 06200 COMPREHENSIVE METABOLIC PANE Dayron 05-17-2023 Albumin [Mass/Vol] 3.9 g/dL Normal 3.2-5.3 [facility] Comment on above: Performed By: #### C BCA, CMP #### [facility] ([id number]) [address] [place] [address] 71680 ALP [Catalytic activity/Vol] 54 U/L Normal 39-130 [facility] Comment on above: Performed By: #### C BCA, CMP #### [facility] ([id number]) [address] [place] [address] 58857 ALT [Catalytic activity/Vol] 22 U/L Normal 0-31 [facility] Comment on above: Performed By: #### C BCA, CMP #### [facility] ([id number]) [address] [place] [address] 41285 Anion gap [Moles/Vol] 2 mmol/L Low 5-15 [facility] Comment on above: Performed By: #### C BCA, CMP #### [facility] ([id number]) [address] [place] [address] 54117 AST [Catalytic activity/Vol] 15 U/L Normal 0-41 [facility] Comment on above: Performed By: #### C BCA, CMP #### [facility] ([id number]) [address] [place] [address] 41374 Bilirubin [Mass/Vol] 0.9 mg/dL Normal 0.3-1.2 [facility] Comment on above: Performed By: #### C BCA, CMP #### [facility] ([id number]) [address] [place] [address] 04542 Calcium [Mass/Vol] 8.0 mg/dL Low 8.5-10.5 [facility] Comment on above: Performed By: #### C BCA, CMP #### [facility] ([id number]) [address] [place] [address] 98573 Chloride [Moles/Vol] 112 mmol/L High 98-109 [facility] Comment on above: Performed By: #### C BCA, CMP #### [facility] ([id number]) [address] [place] [address] 66879 CO2 [Moles/Vol] 21 mmol/L Low 22-32 [facility] Comment on above: Performed By: #### C BCA, CMP #### [facility] ([id number]) [address] [place] [address] 60575 Creatinine [Mass/Vol] 0.70 mg/dL Normal 0.40-1.00 [facility] Comment on above: Result Comment: METH OD TRACEABLE TO IDMS STANDARD Performed By: #### C BCA, CMP #### [facility] ([id number]) [address] [place] [address] 56432 eGFR (CKD-EPI) NON-RACE DEPENDENT >90 Normal >59 [facility] Comment on above: Result Comment: Reported eGFR is based on the CKD-EPI 2021 equation that does not use a race coefficient. Performed By: #### C BCA, CMP #### [facility] ([id number]) [address] [place] [address] 66741 Glucose [Mass/Vol] 112 mg/dL High 65-99 [facility] Comment on above: Performed By: #### C BCA, CMP #### [facility] ([id number]) [address] [place] [address] 24882 Potassium [Moles/Vol] 3.5 mmol/L Normal 3.5-5.0 [facility] Comment on above: Performed By: #### C BCA, CMP #### [facility] ([id number]) [address] [place] [address] 98149 Protein [Mass/Vol] 6.8 g/dL Normal 6.0-8.0 [facility] Comment on above: Performed By: #### C BCA, CMP #### [facility] ([id number]) [address] [place] [address] 43038 Sodium [Moles/Vol] 135 mmol/L Normal 134-146 [facility] Comment on above: Performed By: #### C BCA, CMP #### [facility] ([id number]) [address] [place] [address] 05190 Urea nitrogen [Mass/Vol] 13 mg/dL Normal 5-23 [facility] Comment on above: Performed By: #### C BCA, CMP #### [facility] ([id number]) [address] [place] [address] ABDOMEN AND PELVIS WO CON Ton [...] Jackson MD on 05/17/2023 11:36 AM Normal [facility] HCG ( test) Ql (U)o n 05-17-2023 Beta HCG ( test) Ql (U) Negative Normal NEG [facility] Comment on above: Performed By: #### 2 106-3 #### [facility] ([id number]) [address] [place] [address] 27826 URINE CULTUREon 05-17-2023 Bacteria identified Cx Nom (U) CULTURE RESULTS <10,000 ORGANISMS/ML NORMAL URO GENITAL FARIHA Normal [facility] Comment on above: Performed By: #### 6 30-4 #### [facility] ([id number]) [address] [place] [address], [address] [place] [address] URN MACROSCOPIC NURon 2023 BILIRUBIN NISREEN Negative Normal NEG [facility] Comment on above: Performed By: #### N UM #### [facility] ([id number]) [address] [place] [address] 41886 BLOOD/HGB NISREEN Large Abnormal NEG [facility] Comment on above: Performed By: #### N UM #### [facility] ([id number]) [address] [place] [address] 23322 GLUCOSE NISREEN Negative Normal NEG [facility] Comment on above: Performed By: #### N UM #### [facility] ([id number]) [address] [place] [address] 46083 KETONES NISREEN Negative Normal NEG [facility] Comment on above: Performed By: #### N UM #### [facility] ([id number]) [address] [place] [address] 51732 LEUKOCYTE ESTERASE NISREEN Trace Abnormal NEG [facility] Comment on above: Performed By: #### N UM #### [facility] ([id number]) [address] [place] [address] 74968 NITRITE NISREEN Negative Normal NEG [facility] Comment on above: Performed By: #### N UM #### [facility] ([id number]) [address] [place] [address] 88633 PH NISREEN 7.0 Normal 5.0-8.5 [facility] Comment on above: Performed By: #### N UM #### [facility] ([id number]) [address] [place] [address] 37736 PROTEIN NISREEN >=300 Abnormal NEG [facility] Comment on above: Performed By: #### N UM #### [facility] ([id number]) [address] [place] [address] 57589 SPECIFIC GRAVITY NISREEN 1.025 Normal 1.003-1.035 [facility] Comment on above: Performed By: #### N UM #### [facility] ([id number]) [address] [place] [address] 95421 UROBILINOGEN NISREEN 0.2 eu/dL Normal <1.1 [facility] Comment on above: Performed By: #### N UM #### [facility] ([id number]) [address] [place] [address] 73153 Provider Letteron 05-16-2023 Provider Letter [id number] May 16, 2023 SUNSHINE RYDER [address] [place] [id number] : 2000 SUNSHINE RYDER was evaluated at [facility] 05/16/2023 16:33:47 Patient may work as scheduled with the following restrictions: Restrictions: No heavy lifting over 10lbs, allow pt to have a 15-minute break every 2 hours Provider Signature HAWA Hernandez Nurse Practitioner [facility] [address], [place] [address] Normal [facility] RAD - MISCon 05-13-2023 [facility] [id number] 30 [id number]#1.0 0TIFF Normal [facility] RAD - MISCon 04-29-2023 RAD [facility] [id number] 30 [id number]#1.0 0TIFF Normal [facility] IntraOperative Documentson 0 04-26-2023 IntraOperative Documents [id number]#1. 00TIFF [facility] Main OR Intraoperative Recor don 04-23-2023 Main OR Intraoperative Record IntraOp Document Type FT Summary Primary Physician: Viral CLAROS MD Finalized Date/Time: 04/23/23 09:41:09 Pt. Name: SUNSHINE RYDER/Sex: 2000 Female Med Rec #: [id number] Physician: Viral CLAROS MD Financial #: [id number] Pt. Type: A Room/Bed: [place] [address] Admit/Disch: 04/18/23 07:31:13 - 04/18/23 13:10:00 Institution: [...] 1 Entry 2 Entry 3 Case Attendee Robert Blackwell CRNA, MD, Goldie Nolasco A Role Performed NICO Surgeon - Primary Scrub - Primary Time In 04/18/23 09:28:00 04/18/23 09:28:00 04/18/23 09:28:00 Time Out 04/18/23 10:05:00 04/18/23 10:05:00 04/18/23 10:05:00 Procedure CYSTOSCOPY STENT CYSTOSCOPY STENT CYSTOSCOPY STENT INSERTION(Left), INSERTION(Left), INSERTION(Left), EXTRACORPOREAL SHOCK EXTRACORPOREAL SHOCK EXTRACORPOREAL SHOCK WAVE LITHOTRIPSY(Left) WAVE LITHOTRIPSY(Left) WAVE LITHOTRIPSY(Left) 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 Normal [facility] Consent for Anesthesiaon Consent for Anesthesia [id number]#1.0 0TIFF [facility] Discharge Instructionson Discharge Instructions [id number]#1.0 0TIFF [facility] IntraOperative Documentson 0 04-19-2023 IntraOperative Documents [id number]#1.0 0TIFF Normal [facility] IntraOperative Documents [id number]#1.0 0TIFF [facility] IntraOperative Documents [id number]#1.0 0TIFF [facility] Pre-Op Checkliston Pre-Op Checklist [id number]#1.0 0TIFF [facility] Consent for Procedure/Surger yon 04-18-2023 Consent for Procedure/Surgery [id number]#1.0 0TIFF [facility] Consent for Treatmenton 03-22 Consent for Treatment [id number]#1.0 0TIFF [facility] Discharge Instructionson Discharge Instructions SUNSHINE RYDER [...] fluids to keep the urine clear. Where: [address] [place] [address]- Business (1) Medications What How Much When Instructions Next Dose New acetaminophen-hydrocod one (acetaminophen-hydroco done 325 mg-5 mg oral tablet) 1 Tablets By Mouth Every 4 hours as needed for Pain Duration: 2 Days N20.0 Pickup at [facility]/pharmacy #[id number] New cephalexin (cephalexin 500 mg Cap) 1 Capsules By Mouth Every 12 hours Duration: 5 Days Pickup at [facility]/pharmacy #3478 New oxybutynin (oxybutynin 5 mg Tab) 1 Tablets By Mouth 2 times a day Duration: 30 Days Refills: 1 Pickup at [facility]/pharmacy #3478 Unchanged acetaminophen (Tylenol 325 mg Tab) 2 [...] Tablets By Mouth Every day Pharmacy Information [facility]/pharmacy #[id number]: [address], [place] [phone] Test Results No qualifying data available. Allergies [...] instructions at (more content not included)... Normal [facility] Comment on above: Result Comment: Elec tronically Signed By: Carlos DOUGLAS, Mindi Coats\.br\Date and Time Signed: 04/18/23 10:52 EST H&P Updateon 04-18-2023 H&P Update [id number]#1.0 0TIFF Normal [facility] Inpatient Patient Summaryon 04-18-2023 Inpatient Patient Summary [address] [address] [facility] Clinical Discharge Instructions PERSON INFORMATION Name: SUNSHINE RYDER PHYSICIANS Admitting Physician: Viral CLAROS MD Attending Physician: Viral CLAROS MD PCP: GAYE DILL MD Discharge Diagnosis: Comment: PATIENT EDUCATION INFORMATION Instructions: Lithotripsy, Care After Medication Leaflets: Follow up: With: Address: When: Viral CLAROS [address] [place] [address], [address], [place] [phone] Business (1) Comments: Please call my office [...] the urine clear. MEDICATION LIST New Medications [facility]/pharmacy #[id number], [address], [place] [phone], [phone] acetaminophen-hydrocod one (acetaminophen-hydroco done 325 mg-5 mg [...] Tablets By Mouth every day. Comment: Normal [facility] Main OR PACU I Recordon 03-22 Main OR PACU I Record PACU Phase I Docum ent Type FT Summary Primary Physician: Viral CLAROS MD Finalized Date/Time: 04/18/23 11:05:16 Pt. Name: SUNSHINE RYDER/Sex: 2000 Female Med Rec #: [id number] Physician: Viral CLAROS MD Financial #: [id number] Pt. Type: A Room/Bed: 03/ Admit/Disch: 04/18/23 [...] By: Nikia Woods RN 04/18/23 11:05 Normal [facility] Main OR PACU II Recordon Main OR PACU II Record PACU Phase II Document Type FT Summary Primary Physician: Viral CLAROS MD Finalized Date/Time: 04/18/23 13:12:09 Pt. Name: BRITNISUNSHINE/Sex: 2000 Female Med Rec #: [id number] Physician: Viral CLAROS MD Financial #: [id number] Pt. Type: A Room/Bed: [facility]/ Admit/Disch: 04/18/23 07:31:13 - Institution: Case [...] By: Mindi Gonzalez RN 04/18/23 13:12 Normal [facility] Main OR Preoperative Recordo n 04-18-2023 Main OR Preoperative Record PreOp Document Type FT Summary Primary Physician: Viral CLAROS MD Finalized Date/Time: 04/18/23 09:46:06 Pt. Name: SUNSHINE RYDER/Sex: 2000 Female Med Rec #: [id number] Physician: Viral CLAROS MD Financial #: [id number] Pt. Type: A Room/Bed: Admit/Disch: 04/18/23 07:31:13 [...] By: Paul Reddy Ii 04/18/23 09:46 Normal [facility] Monitor Recordon 04-18-2023 Monitor Record [id number]#1. 00TIFF Normal [facility] Operative Reporton Operative Report Patient: SUNSHINE RYDER [...] placed per urethra and a well-lubricated 22 German is urethroscope with 30 degree lens then passed into the bladder. Panendoscopy reveals no tumors, no stones, no diverticuli. The left orifice was cannulated and a point 035 wire was passed up into the kidney. Over that a 4.9 German Dornier stent was passed into the kidney [...] it well. She is [facility] and then back to PACU in satisfactory [...] her sister. I did send prescriptions for [place], cephalexin, and oxybutynin to the pharmacy.. Estimated Blood Loss: 0 ml. Complications: None. Anesthesia type: General. Normal [facility] Comment on above: Result Comment: Elec tronically Signed By: Viral CLAROS MD\.br\Date and Time Signed: 04/18/23 10:06 EST Outpatient Surgery Discharge Instructionon 04-18-2023 Outpatient Surgery Discharge Instruction [place] [id number] Patient Discharge Instructions PERSON INFORMATION Name: SUNSHINE [...] Follow up: With: Address: When: Viral CLAROS [address] [place] [address], [address], [place] [phone] Business (1) Comments: Please call my office [...] Information: You may receive a survey from [employer] asking you to rate your care experience. Your feedback is important and will help us understand what we do well and how we can improve the quality of care we provide to you, your loved ones and our community. It?s an honor to serve you. Thank you for choosing [facility] HERE ARE THE MEDICATION CHANGES THAT OCCURRED DURING YOUR HOSPITAL STAY New Medications [id number], [address] [place], [place] [phone], [phone] acetaminophen-hydrocod one (acetaminophen-hydroco done 325 mg-5 mg [...] these instructions at home: Medicines ? Take gmfj-ror-muqwyhd and prescription medicines only as told by you (more content not included)... Normal [facility] Patient Education - Texton 0 04-18-2023 Patient [...] these instructions at home: Medicines ? Take hhop-pjw-qzpzwsq and prescription medicines only as told by [...] forming. ? (more content not included)... Normal [facility] Progress Note-Physicianon Progress Note-Physician Patient: SUNSHINE RYDER Age: 23 years Sex: Female : 2000 Associated Diagnoses: None Author: Aamir Patel Jr., DO Postoperative Information Postoperative disposition: Postoperative disposition: Home. Optimetrix number: Optimetrix number [id number]. Anesthetic utilized: General. Physical Examination Vital Signs [...] Surgery Unit, and To home ). Normal [facility] Comment on above: Result Comment: Elec tronically [...] All Problems Abdominal pain / SNOMED CT 15803552 / Confirmed ADHD / SNOMED CT 9414890804 / Confirmed Flank pain / SNOMED CT 754876639 / Confirmed Hypertension / SNOMED CT 8268579126 / Confirmed Kidney stone / SNOMED CT 889090646 / Confirmed Smoker / SNOMED CT 028545433 / Confirmed Added secondary to documentation in Social History. Histories Past Medical History: No active or resolved past medical history items have been selected or recorded. Procedure history: Tonsillectomy (265299797). wisdom extraction (24148946). Social History Social & Psychosocial Habits Alcohol [...] Auto 54.6 % Lymph Auto 32.6 % [place] Auto 10.3 % Eos Auto 1.7 % Basophil Auto 0.8 % Neutro Absolute 3.1 E9/L Lymph Absolute 1.9 E9/L [place] Absolute 0.6 E9/L Eos Absolute 0.1 E9/L Basophil Absolute 0.0 E9/L PT 12.0 second(s) INR 1.1 NA PTT 33.2 second(s) Glucose Lvl 105 mg/dL BUN 15 mg/dL Creatinine 0.8 mg/dL eGFR 107 mL/min/1.73 m2 BUN/Creat Ratio 19 Sodium Lvl 136 mmol/L Potass (more content not included)... Normal [facility] Comment on above: Result Comment: Elec tronically Signed By: Aamir Patel Jr., DO.br\Date and Time Signed: 04/18/23 07:56 EST SEROLOGYOrdered By: Juliane Mcdonnell on 04-18-2023 HCG.beta subunit (U) [Moles/Vol] Negative Normal [facility] Man Sero U BetaHcg Qualon 04-18-2023 HCG.beta subunit (U) [Moles/Vol] Negative Normal [facility] Comment on above: Performed By: #### 2 [id number] ####[facility] [address] [place] [address] XR Abdomen 1 Viewon 04-18-19 24 XR [...] mGy = 0 DAP = 0 Normal [facility] BMPon 03-29-2023 Anion gap [Moles/Vol] 11 mmol/L Normal 6-16 [facility] Comment on above: Performed By: #### 1 2226529, 8442231, 39855526, 8696922 #### [facility] Laboratory [address] [place] [address] BUN/Creat Ratio 19 No Units Normal 10-20 [facility] Comment on above: Performed By: #### 1 1119762, 3444846, 02011448, 7285058 #### [facility] [address] [place] [address] Calcium [Mass/Vol] 8.6 mg/dL Low 8.9-11.1 [facility] Comment on above: Performed By: #### 1 1016710, 7245076, 13823140, 2786664 #### [facility] [address] [place] [address] Chloride [Moles/Vol] 107 mmol/L Normal 101-111 [facility] Comment on above: Performed By: #### 1 4926823, 9589295, 05873214, 3910380 #### [facility] [address] [place] [address] CO2 [Moles/Vol] 22 mmol/L Normal 21-[address] [facility] Comment on above: Performed By: #### 1 7036581, 1376053, 80839879, 5012365 #### [facility] [address] [place] [address] Creatinine [Mass/Vol] 0.8 mg/dL Normal 0.5-1.3 [facility] Comment on above: Performed By: #### 1 7769016, 9226084, 13622795, 5626728 #### [facility] [address] [place] [address] Glucose [Mass/Vol] 105 mg/dL Normal 55-199 [facility] Comment on above: Performed By: #### 1 0217217, 7081555, 17413215, 4159859 #### [facility] [address] [place] [address] Potassium [Moles/Vol] 3.9 mmol/L Normal 3.5-5.3 [facility] Comment on above: Performed By: #### 1 8842916, 4041328, 39525003, 3982677 #### [facility] [address] [place] [address] Sodium [Moles/Vol] 136 mmol/L Normal 135-145 [facility] Comment on above: Performed By: #### 1 5891756, 6324976, 95098334, 0745529 #### [facility] [address] [place] [address] Urea nitrogen [Mass/Vol] 15 mg/dL Normal 5-21 [facility] Comment on above: Performed By: #### 1 4484455, 5543552, 73059848, 7028202 #### [facility] [address] [place] [address] CBC w/ Auto Diffon 4 Basophil Absolute 0.0 E9/L Normal 0.0-0.2 [facility] Comment on above: Performed By: #### 1 3553430, 4766488, 12202936, 7129405 #### [facility] [address] [place] [address] Basophils/100 WBC (Bld) 0.8 % Normal 0.0-2.0 [facility] Comment on above: Performed By: #### 1 3225772, 9372730, 51835110, 1920298 #### [facility] [address] [place] [address] Eos Absolute 0.1 E9/L Normal 0.0-0.5 [facility] Comment on above: Performed By: #### 1 7938078, 4353972, 06038589, 8715128 #### [facility] [address] [place] [address] Eosinophils/100 WBC (Bld) 1.7 % Normal 0.0-8.0 [facility] Comment on above: Performed By: #### 1 3341418, 3346311, 19935064, 0724546 #### [facility] [address] [place] [address] Erythrocyte distribution width (RBC) [Ratio] 13.0 % Normal 10.9-14.2 [facility] Comment on above: Performed By: #### 1 0946497, 8446248, 76582483, 9461788 #### [facility] [address] [place] [address] Hematocrit (Bld) [Volume fraction] 39.0 % Normal 34.0-46.0 [facility] Comment on above: Performed By: #### 1 5505277, 3552529, 27443980, 3987215 #### [facility] [address] [place] [address] Hemoglobin (Bld) [Mass/Vol] 13.2 g/dL Normal 12.0-16.0 [facility] Comment on above: Performed By: #### 1 6107453, 6286884, 14622149, 0822695 #### [facility] [address] [place] [address] Lymph Absolute 1.9 E9/L Normal 1.0-4.0 [facility] Comment on above: Performed By: #### 1 4211969, 3941014, 93440071, 4057123 #### [facility] [address] [place] [address] Lymphocytes/100 WBC (Bld) 32.6 % Normal 14.0-50.0 [facility] Comment on above: Performed By: #### 1 2846844, 0777812, 85052214, 5313956 #### [facility] [address] [place] [address] MCH (RBC) [Entitic mass] 30.1 pg Normal 27.0-34.0 [facility] Comment on above: Performed By: #### 1 2634631, 1377898, 74699745, 2442213 #### [facility] [address] [place] [address] MCHC (RBC) [Mass/Vol] 33.9 g/dL Normal 31.4-36.0 [facility] Comment on above: Performed By: #### 1 7574054, 6932848, 67910352, 3103690 #### [facility] [address] [place] [address] MCV (RBC) [Entitic vol] 89.0 fL Normal 80.0-100.0 [facility] Comment on above: Performed By: #### 1 2294604, 1988929, 88349851, 1712901 #### [facility] [address] [place] [address] [place] Absolute 0.6 E9/L Normal 0.2-1.0 [facility] Comment on above: Performed By: #### 1 9630265, 9483115, 11648208, 3426720 #### [facility] [address] [place] [address] Monocytes/100 WBC (Bld) 10.3 % Normal 4.0-14.0 [facility] Comment on above: Performed By: #### 1 7961491, 7804094, 25201870, 7763373 #### [facility] [address] [place] [address] Neutro Absolute 3.1 E9/L Normal 2.0-7.[address] [facility] Comment on above: Performed By: #### 1 6213125, 6872108, 22091978, 7581544 #### [facility] [address] [place] [address] Neutro Auto 54.6 % Normal 36.0-75.0 [facility] Comment on above: Performed By: #### 1 0436543, 5905392, 62438275, 8872063 #### [facility] [address] [place] [address] Platelet 225.0 E9/L Normal 150.0-500.0 [facility] Comment on above: Performed By: #### 1 8333379, 2141443, 73690208, 1509454 #### [facility] [address] [place] [address] Platelet mean volume (Bld) [Entitic vol] 9.5 fL Normal 6.4-10.8 [facility] Comment on above: Performed By: #### 1 6680199, 3275467, 97399251, 2356432 #### [facility] [address] [place] [address] RBC 4.4 E12/L Normal 4.3-5.9 [facility] Comment on above: Performed By: #### 1 5170450, 3088088, 21887947, 7112617 #### [facility] [address] [place] [address] WBC 5.7 E9/L Normal 4.0-11.0 [facility] Comment on above: Performed By: #### 1 1689149, 0853519, 20444380, 7196627 #### [facility] [address] [place] [address] CHEMISTRYOrdered By: SYSTEM SYSTEM on 03-29-2023 Anion [...] 33.2 s Normal 25.1 - 36.5 second(s) [facility] Comment on above: Interpretive Data: [...] the same coagulation reagent and instrumentation as [facility]. Currently there are no coagulation studies available worldwide for children to 14 days, and no normal ranges. Heparin therapeutic range (represented by Anti-Factor Xa activity of 0.2 - 0.4 U/mL) corresponds to PTT of 56.6 - 109.0 sec. INR Coag (PPP) [Relative time] 1.1 {INR} Invalid Interpretation Code [facility] Comment on above: Interpretive Data: I NR results are specifically intended to assess patients stabilized on long-term Anticoagulation therapy suggested INR s Less Intensive Anticoagulation 2.0 3.0 Conventional Range 3.0 4.5 PT Coag (PPP) [Time] 12.0 s Normal 9.4 - 1 2.5 second(s) [facility] Comment on above: Interpretive Data: [...] the same coagulation reagent and instrumentation as [facility]. Currently there are no coagulation studies available worldwide for children to 14 days, and no normal ranges. Consent for Treatmenton Consent for Treatment [id number]#1.0 0TIFF Normal [facility] HEMATOLOGYOrdered By: SYSTEM SYSTEM on 03-29-2023 Basophil [...] Normal 80.0 - 100.0 fL Remisol Heme [place] Absolute 0.6 E9/L Normal 0.2 - 1.0 [...] Coag (PPP) [Time] 33.2 second(s) Normal 25.1-36.5 [facility] Comment on above: Result Comment: Para meter [...] the same coagulation reagent and instrumentation as [facility] Currently there are no coagulation studies available worldwide for children to 14 days, and no normal ranges. Heparin therapeutic range (represented by Anti-Factor Xa activity of 0.2 - 0.4 U/mL) corresponds to PTT of 56.6 - 109.0 sec. Performed By: #### 1 [id number], [id number], [id number], [id number] #### [facility] [address] [place] [address] INR Coag (PPP) [Relative time] 1.1 {INR} Invalid Interpretation Code [facility] Comment on above: Result Comment: INR results are specifically intended to assess patients stabilized on long-term Anticoagulation therapy suggested INR?s ?Less Intensive Anticoagulation? 2.0 ? 3.0 Conventional Range 3.0 ? 4.5 Performed By: #### 1 [id number], [id number], [id number], [id number] #### [facility] [address] [place] [address] PT Coag (PPP) [Time] 12.0 second(s) Normal 9.4-12.5 [facility] Comment on above: Result Comment: 15 d [...] the same coagulation reagent and instrumentation as [facility]. Currently there are no coagulation studies available worldwide for children to 14 days, and no normal ranges. Performed By: #### 1 [id number], [id number], [id number], [id number] #### [facility] [address] [place] [address] UA With Cult Reflexon 2023 Bacteria LM Ql (Urine sed) TRACE Normal Trace [facility] Comment on above: Performed By: #### 1 [id number] ####[facility] [address] [place] [address] Bilirubin Ql (U) Negative Normal Negative [facility] Comment on above: Performed By: #### 1 [id number] ####[facility] [address] [place] [address] Clarity (U) CLEAR Normal Clear [facility] Comment on above: Performed By: #### 1 [id number] ####[facility] [address] [place] [address] Color (U) YELLOW Normal Yellow [facility] Comment on above: Performed By: #### 1 [id number] ####[facility] [address] [address] Epithelial cells.squamous LM.HPF (Urine sed) [#/Area] 5-8 Normal 0-2 [facility] Comment on above: Performed By: #### 1 [id number] ####[address] [address] Glucose Test strip (U) [Mass/Vol] Negative Normal Negative [facility] Comment on above: Performed By: #### 1 [id number] ####[address] [address] Hemoglobin Ql (U) TRACE Abnormal Negative [facility] Comment on above: Performed By: #### 1 [id number] ####[address] [address] Ketones (U) [Mass/Vol] Negative Normal Negative [facility] Comment on above: Performed By: #### 1 [id number] ####[address] [address] Clute.plasma/Lithiu m.RBC (Bld) [Mass ratio] 4-20 Normal 0-3 [facility] Comment on above: Performed By: #### 1 [id number] ####[address] [address] Nitrite Ql (U) Negative Normal Negative [facility] Comment on above: Performed By: #### 1 [id number] ####[address] [address] pH (U) 6.5 [pH] Invalid Interpretation Code 5.0-9.0 [facility] Comment on above: Performed By: #### 1 [id number] ####[address] [address] Protein (U) [Mass/Vol] Negative Normal Negative [facility] Comment on above: Performed By: #### 1 [id number] ####[address] [address] Specific gravity (U) [Rel density] 1.010 Invalid Interpretation Code 1.005-1.030 [facility] Comment on above: Performed By: #### 1 [id number] ####[facility] [address] [place] [address] Type of Urine collection method Clean Catch Normal [facility] Comment on above: Performed By: #### 1 [id number] ####[facility] [address] [place] [address] Urobilinogen Qn (U) 0.2 {Kellee'U}/dL Normal 0.0-1.0 [facility] Comment on above: Performed By: #### 1 [id number] ####[facility] [address] [place] [address] WBC Auto Ql (U) Negative Normal Negative [facility] Comment on above: Performed By: #### 1 [id number] ####[facility] [address] [place] [address] WBC LM.HPF (Urine sed) [#/Area] 0-5 Normal 0-5 [facility] Comment on above: Performed By: #### 1 [id number] ####[facility] [address] [place] [address] URINALYSISOrdered By: Fabi Reyna on 03-29-2023 Bacteria [...] [Mass/Vol] Negative (03/29/23 11:01 AM) Normal Negative [facility] UA Auto SS Clute.plasma/Lithiu m.RBC (Bld) [Mass ratio] 4-20 /HPF Normal 0-3/HPF [facility] UA Auto SS Nitrite Ql (U) Negative (03/29/23 11:01 AM) Normal Negative [facility] UA Auto SS pH (U) 6.5 *NA* (03/29/23 11:01 AM) Invalid Interpretation Code 5.0 - 9.0 [facility] UA Auto SS Protein (U) [Mass/Vol] Negative (03/29/23 11:01 AM) Normal Negative [facility] UA Auto SS Specific gravity (U) [Rel density] 1.010 *NA* (03/29/23 11:01 AM) Invalid Interpretation Code 1.005 - 1.030 [facility] UA Auto SS UA Spec Desc Clean Catch (03/29/23 11:01 AM) Normal [facility] UA Auto SS Urobilinogen Qn (U) 0.0610770 {Kellee'U}/dL Normal 0.0 - 1.0 EU/dL [facility] UA Auto SS WBC Auto Ql (U) Negative (03/29/23 11:01 AM) Normal Negative [facility] UA Auto SS WBC LM.HPF (Urine sed) [#/Area] 0-5 /HPF Normal 0-5/HPF [facility] UA Auto SS eGFRon 03-29-2023 eGFR 107 mL/min/1.73 m2 Normal >=59 [facility] Comment on above: Order Comment: Order added by Discern Expert. Performed By: #### 1 [id number], [id number], [id number], [id number] #### [facility] [address] [place] [address] RAD - CT Reporton 03-22-2023 RAD - CT Report [id number]. 00TIFF Normal [facility] RAD - MISCon 03-22-2023 RAD - MISC [id number]#1. 00TIFF Normal [facility] Formson 03-20-2023 Forms [id number]#1.0 0TIFF Normal [facility] Ambulatory Visit Summaryon 0 03-19-2023 Ambulatory Visit [...] When: Comments: Schedule stone procedure Where: [address] [place] [id number]- Medications What How Much When Instructions Unchanged [...] ? 8 oz (237 mL) of milk, fcuaaig-pbekyrppstnr-q airy milk, and calcium-fortifiedfruit juice. Calcium-fortified means [...] include: ? Spin (more content not included)... [facility] Formson 03-19-2023 Forms [id number]#1.0 0TIFF [facility] Patient Educationon 03-19-19 24 Patient Education [...] ? 8 oz (237 mL) of milk, hpuhwrm-ckosuvxfpahs-x airy milk, and calcium-fortifiedfruit juice. Calcium-fortified means [...] Spinach (cooked), rhubarb, beets, sweet potatoes, and [place] chard. ? Peanuts. ? Potato chips, senegalese fries, and baked potatoes with skin on. ? Nuts and nut products. ? Chocolate. ? If you regularly take a diuretic medicine, make sure to eat at least 1 or 2 servings of fruits or vegetables that are high in potassium each day. These include: ? Avocado. ? Banana. ? [place], prune, carrot, or tomato juice. ? Baked [...] fish oil, or vitamin B6. ? Take gopz-fsr-nenfunk and prescription medicines only as told by your health care provider. These include supplements. What foods sh (more content not included)... Normal [facility] RAD - MISCon 03-19-2023 RAD - MIS [id number]#1.0 0TIFF Normal [facility] Urology Office/Clinic Noteon 03-19-2023 Urology Office/Clinic Note Chief Complaint F/U with [facility] Staff New Pt. Pt was last seen on 12/23/2019. Pt was seen at [facility] on 01/22/23 due to left sided [...] Calculus of kidney) Pt was seen at [facility] on 01/22/23 due to left sided [...] the plan Follow-up With When Contact Information SHAWN COOK, Viral Catalan, URL [address] [id number]- Additional Instructions: Schedule stone procedure Patient Education Dietary Guidelines to Help Prevent Kidney (more content not included)... Normal [facility] Comment on above: Result Comment: Elec tronically Signed By: Viral CLAROS MD\.br\Date and Time Signed: 03/19/23 10:22 EST\.br\Electronically Co-Signed By: Suzan Riley\.br\Date and Time Co-Signed: 03/19/23 10:19 EST ED Note-Physicianon 02-04-20 ED Note-Physician [id number]#1.0 0TIFF Normal [facility] PREG QUANT HCGon 05-18-2022 HCG QUANT <1 Normal [place] Comment on above: Performed By: #### P REGQNT #### [facility] [address] [place] [address] Dr. Michael Vigil HCG RANGE SEE BELOW Normal [place] Comment on above: Result Comment: 5-50 0.2-1 WEEK 50-500 1-2 WEEKS 100-5,000 2-3 WEEKS 500-10,000 3-4 WEEKS 1,000-50,000 4-5 WEEKS 10,000-100,000 5-6 WEEKS 15,000-200,000 6-8 WEEKS 10,000-100,000 2-3 MONTHS Performed By: #### P REGQNT #### [facility] [address] [place] [address] Dr. Michael Vigil CBC AUTO DIFFon 08-31-2021 BASO # 0.1 103/ul Normal 0.0-0.1 [place] Comment on above: Performed By: #### C BC #### [facility] [address] [place] [address] Dr. Michael Vigil Basophils/100 WBC (Bld) 0.5 % Normal 0.2-2.0 [place] Comment on above: Performed By: #### C BC #### [facility] [address] [place] [address] Dr. Michael Vigil EO # 0.1 103/ul Normal 0.0-0.7 [place] Comment on above: Performed By: #### C BC #### [facility] [address] [place] [address] Dr. Michael Vigil Eosinophils/100 WBC (Bld) 1.3 % Normal 0.9-7.0 [place] Comment on above: Performed By: #### C BC #### [facility] [address] [place] [address] Dr. Michael Vigil Erythrocyte distribution width (RBC) [Ratio] 12.5 % Normal 11.0-15.0 [place] Comment on above: Performed By: #### C BC #### [facility] [address] [place] [address] Dr. Michael Vigil Hematocrit (Bld) [Volume fraction] 43.9 % Normal 36.0-48.0 [place] Comment on above: Performed By: #### C BC #### [facility] [address] [place] [address] Dr. Michael Vigil Hemoglobin (Bld) [Mass/Vol] 14.7 g/dL Normal 12.0-16.0 [place] Comment on above: Performed By: #### C BC #### [facility] [address] [place] [address] Dr. Michael Vigil IG # 0.03 10e3/ul Normal 0.00-0.03 [place] Comment on above: Performed By: #### C BC #### [facility] [address] [place] [address] Dr. Michael Vigil IG % 0.3 % Normal 0.0-0.5 [facility] Comment on above: Performed By: #### C BC #### [facility] [address] [place] [address] Dr. Michael Vigil LYMPH # 3.0 103/ul Normal 1.2-3.8 [facility] Comment on above: Performed By: #### C BC #### [facility] [address] [place] [address] Dr. Michael Vigil Lymphocytes/100 WBC (Bld) 32.0 % Normal 20.5-60.0 [place] Comment on above: Performed By: #### C BC #### [facility] [address] [place] [address] Dr. Michael Vigil MANUAL DIFF REQ NO Normal [facility] Comment on above: Performed By: #### C BC #### [facility] [address] [place] [address] Dr. Michael Vigil MCH (RBC) [Entitic mass] 30.2 pg Normal 26.7-34.0 [place] Comment on above: Performed By: #### C BC #### [facility] [address] [place] [address] Dr. Michael Vigil MCHC (RBC) [Mass/Vol] 33.5 g/dL Normal 29.9-35.2 [place] Comment on above: Performed By: #### C BC #### [facility] [address] [place] [address] Dr. Michael Vigil MCV (RBC) [Entitic vol] 90.1 fL Normal 81.0-99.0 [place] Comment on above: Performed By: #### C BC #### [facility] [address] [place] [address] Dr. Michael Vigil MONO # 0.7 103/ul Normal 0.3-0.8 [place] Comment on above: Performed By: #### C BC #### [facility] [address] [place] [address] Dr. Michael Vigil Monocytes/100 WBC (Bld) 7.8 % Normal 1.7-12.0 [place] Comment on above: Performed By: #### C BC #### [facility] [address] [place] [address] Dr. Michael Vigil NEUT # 5.3 103/ul Normal 1.4-6.5 [place] Comment on above: Performed By: #### C BC #### [facility] [address] [place] [address] Dr. Michael Vigil Neutrophils/100 WBC (Bld) 58.1 % Normal 43.0-75.0 [facility] Comment on above: Performed By: #### C BC #### [facility] [address] [place] [address] Dr. Michael Vigil Platelet mean volume (Bld) [Entitic vol] 10.3 fL Normal 9.5-13.5 [place] Comment on above: Performed By: #### C BC #### [facility] [address] [place] [address] Dr. Michael Vigil PLT 292 103/ul Normal 150-450 [place] Comment on above: Performed By: #### C BC #### [facility] [address] [place] [address] Dr. Michael Vigil RBC 4.87 106/ul Normal 4.20-5.40 [place] Comment on above: Performed By: #### C BC #### [facility] [address] [place] [address] Dr. Michael Vigil WBC 9.2 103/ul Normal 4.0-11.0 [place] Comment on above: Performed By: #### C BC #### [facility] [address] [place] [address] Dr. Michael Vigil PROF CHEM 8 (BAS METB)on Anion gap [Moles/Vol] 12.3 mmol/L Normal [facility] Comment on above: Performed By: #### B MP #### [facility] [address] [place] [address] Dr. Michael Vigil Calcium [Mass/Vol] 9.1 mg/dL Normal 8.5-10.1 [facility] Comment on above: Performed By: #### B MP #### [facility] [address] [place] [address] Dr. Michael Vigil Chloride [Moles/Vol] 106 mmol/L Normal 98-107 [place] Comment on above: Performed By: #### B MP #### [facility] [address] [place] [address] Dr. Michael Vigil CO2 [Moles/Vol] 26.0 mmol/L Normal 21.0-32.0 [facility] Comment on above: Performed By: #### B MP #### [facility] [address] [address] [address] Michael Vigil Creatinine [Mass/Vol] 0.97 mg/dL Normal 0.55-1.02 [place] Comment on above: Performed By: #### B MP #### [facility] [address] [address] [address] Michael Vigil EGFR-AF DANISH >60 Normal >=60 [facility] Comment on above: Performed By: #### B MP #### [facility] [address] [address] [address] Michael Vigil EGFR-NON AF DANISH >60 Normal >=60 [place] Comment on above: Performed By: #### B MP #### [facility] [address] [address] [address] Michael Vigil Glucose [Mass/Vol] 96 mg/dL Normal 74-106 [facility] Comment on above: Performed By: #### B MP #### [facility] [address] [address] [address] Michael Vigil Potassium [Moles/Vol] 4.3 mmol/L Normal 3.5-5.1 [facility] Comment on above: Performed By: #### B MP #### [facility] [address] [address] [address] Michael Vigil Sodium [Moles/Vol] 140 mmol/L Normal 136-145 [facility] Comment on above: Performed By: #### B MP #### [facility] [address] [address] [address] Michael Vigil Urea nitrogen [Mass/Vol] 18.0 mg/dL Normal 6.4-19.3 [facility] Comment on above: Performed By: #### B MP #### [facility] [address] [place] [address] Dr. Michael Vigil Urea nitrogen/Creatinine [Mass ratio] 18.6 mg/mg Normal [place] Comment on above: Performed By: #### B MP #### [facility] [address] [address] [address] Michael SNIDER Quick Testingon 2020 Result Negative [facility] [employer] Other Quick Strepon 02-09-2021 S. pyogenes Org specific cx Ql (Throat) Negative [facility] Other Quick Strep [facility] [employer] Other Vital Signs Date Time Vital Sign Value Performing Clinician Facility 03-06-2024 10:06-0500 Body height 160.02 cm [facility] 03-06-2024 10:06-0500 Body mass index (BMI) [Ratio] 39.8 kg/m2 [facility] 03-06-2024 10:06-0500 Body weight 102.05 kg [facility] 03-06-2024 10:06-0500 Diastolic blood pressure 100 mm[Hg] [facility] 03-06-2024 10:06-0500 Heart rate 68 /min [facility] 03-06-2024 10:06-0500 Systolic blood pressure 140 mm[Hg] [facility] 12-13-2023 08:58-0400 Body height 160.02 cm [facility] 12-13-2023 08:58-0400 Body mass index (BMI) [Ratio] 36.8 kg/m2 [facility] 12-13-2023 08:58-0400 Body temperature 97.9 [degF] [facility] 12-13-2023 08:58-0400 Body weight 94.34 kg [facility] 12-13-2023 08:58-0400 Diastolic blood pressure 97 mm[Hg] [facility] 12-13-2023 08:58-0400 Heart rate 75 /min [facility] 12-13-2023 08:58-0400 SaO2% (BldA) [Mass fraction] 98 % [facility] 12-13-2023 08:58-0400 Systolic blood pressure 134 mm[Hg] [facility] 11-14-2023 11:37-0400 Body height 160.02 cm [facility] 11-14-2023 11:37-0400 Body mass index (BMI) [Ratio] 36.3 kg/m2 [facility] 11-14-2023 11:37-0400 Body weight 92.98 kg [facility] 11-14-2023 11:37-0400 Diastolic blood pressure 91 mm[Hg] [facility] 11-14-2023 11:37-0400 Heart rate 97 /min [facility] 11-14-2023 11:37-0400 Systolic blood pressure 152 mm[Hg] [facility] 07-17-2023 11:53-0400 Body height 160.02 cm [facility] 07-17-2023 11:53-0400 Body mass index (BMI) [Ratio] 34.2 kg/m2 [facility] 07-17-2023 11:53-0400 Body weight 87.54 kg [facility] 07-17-2023 11:53-0400 Diastolic blood pressure 100 mm[Hg] [facility] 07-17-2023 11:53-0400 Heart rate 83 /min [facility] 07-17-2023 11:53-0400 Systolic blood pressure 137 mm[Hg] [facility] 06-13-2023 13:50-0400 Blood Pressure Location Viral appening [facility] 06-13-2023 13:50-0400 Body temperature 97.7 [degF] Viral appening [facility] 06-13-2023 13:50-0400 Diastolic blood pressure 114 mm[Hg] Viral appening [facility] 06-13-2023 13:50-0400 Heart rate 60 /min Viral appening [facility] 06-13-2023 13:50-0400 Mean blood pressure 127 mm[Hg] Viral appening [facility] 06-13-2023 13:50-0400 Respiratory rate 20 /min Viral appening [facility] 06-13-2023 13:50-0400 SaO2% (BldA) [Mass fraction] 98 % Viral CLAROS [facility] 06-13-2023 13:50-0400 Systolic blood pressure 153 mm[Hg] Viral COOK [facility] 06-13-2023 12:45-0400 Blood Pressure Location Viral CLAROS [facility] 06-13-2023 12:45-0400 Body temperature 97.7 [degF] Viral CLAROS [facility] 06-13-2023 12:45-0400 Diastolic blood pressure 91 mm[Hg] Viral CLAROS [facility] 06-13-2023 12:45-0400 Diastolic blood pressure 101 mm[Hg] Viral COOK [facility] 06-13-2023 12:45-0400 Heart rate 73 /min Viral COOK [facility] 06-13-2023 12:45-0400 Heart rate 70 /min Viral COOK [facility] 06-13-2023 12:45-0400 Mean blood pressure 107 mm[Hg] Viral COOK [facility] 06-13-2023 12:45-0400 Mean blood pressure 120 mm[Hg] Viral COOK [facility] 06-13-2023 12:45-0400 Respiratory rate 18 /min Viral COOK [facility] 06-13-2023 12:45-0400 Respiratory rate 16 /min Viral COOK [facility] 06-13-2023 12:45-0400 SaO2% (BldA) [Mass fraction] 97 % Viral CLAROS [facility] 06-13-2023 12:45-0400 Systolic blood pressure 138 mm[Hg] Viral CLAROS [facility] 06-13-2023 12:45-0400 Systolic blood pressure 159 mm[Hg] Viral CLAROS [facility] 06-13-2023 12:30-0400 Respiratory rate 14 /min Viral CLAROS [facility] 06-13-2023 12:17-0400 Body temperature 96.98 [degF] Viral CLAROS [facility] 06-13-2023 12:10-0400 Respiratory rate 15 /min Viral CLAROS [facility] 06-13-2023 12:05-0400 Respiratory rate 16 /min Viral CLAROS [facility] 06-13-2023 09:59-0400 Mean blood pressure 123 mm[Hg] Viral CLAROS [facility] 06-13-2023 09:59-0400 Heart rate 80 /min Viral CLAROS [facility] 06-13-2023 09:58-0400 Mean blood pressure 102 mm[Hg] Viral CLAROS [facility] 05-20-2023 14:30-0400 Diastolic blood pressure 106 mm[Hg] [facility] 05-20-2023 14:30-0400 Heart rate 69 /min [facility] 05-20-2023 14:30-0400 Mean blood pressure 119 mm[Hg] [facility] 05-20-2023 14:30-0400 Respiratory rate 20 /min [facility] 05-20-2023 14:30-0400 SaO2% (BldA) [Mass fraction] 98 % [facility] 05-20-2023 14:30-0400 Systolic blood pressure 144 mm[Hg] [facility] 05-20-2023 14:00-0400 Diastolic blood pressure 110 mm[Hg] [facility] 05-20-2023 14:00-0400 Heart rate 70 /min [facility] 05-20-2023 14:00-0400 Mean blood pressure 121 mm[Hg] [facility] 05-20-2023 14:00-0400 Respiratory rate 18 /min [facility] 05-20-2023 14:00-0400 SaO2% (BldA) [Mass fraction] 99 % [facility] 05-20-2023 14:00-0400 Systolic blood pressure 142 mm[Hg] [facility] 05-20-2023 13:00-0400 Diastolic blood pressure 98 mm[Hg] [facility] 05-20-2023 13:00-0400 Mean blood pressure 113 mm[Hg] [facility] 05-20-2023 11:36-0400 Body temperature 97.88 [degF] [facility] 05-20-2023 11:36-0400 Heart rate 82 /min [facility] 04-23-2023 15:03-0500 Body height 160.02 cm [facility] 04-23-2023 15:03-0500 Body mass index (BMI) [Ratio] 35.6 kg/m2 [facility] 04-23-2023 15:03-0500 Body weight 91.28 kg [facility] 04-23-2023 15:03-0500 Diastolic blood pressure 92 mm[Hg] [facility] 04-23-2023 15:03-0500 Heart rate 71 /min [facility] 04-23-2023 15:03-0500 SaO2% (BldA) [Mass fraction] 97 % [facility] 04-23-2023 15:03-0500 Systolic blood pressure 127 mm[Hg] [facility] 04-18-2023 10:48-0500 SaO2% (BldA) [Mass fraction] 98 % Viral CLAROS [facility] 04-18-2023 10:41-0500 Heart rate 53 /min Viral CLAROS [facility] 04-18-2023 10:41-0500 SaO2% (BldA) [Mass fraction] 99 % Viral CLAROS [facility] 04-18-2023 10:41-0500 Diastolic blood pressure 85 mm[Hg] Viral CLAROS [facility] 04-18-2023 10:41-0500 Mean blood pressure 104 mm[Hg] Viral CLAROS [facility] 04-18-2023 10:41-0500 Systolic blood pressure 140 mm[Hg] Viral CLAROS [facility] 04-18-2023 10:40-0500 Respiratory rate 18 /min Viral CLAROS [facility] 04-18-2023 10:35-0500 Blood Pressure Location Viral CLAROS [facility] 04-18-2023 10:35-0500 Body temperature 97.88 [degF] Viral CLAROS [facility] 04-18-2023 10:35-0500 Diastolic blood pressure 101 mm[Hg] Viral CLAROS [facility] 04-18-2023 10:35-0500 Heart rate 59 /min Viral CLAROS [facility] 04-18-2023 10:35-0500 Mean blood pressure 119 mm[Hg] Viral CLAROS [facility] 04-18-2023 10:35-0500 Respiratory rate 15 /min Viral CLAROS [facility] 04-18-2023 10:35-0500 SaO2% (BldA) [Mass fraction] 97 % Viral CLAROS [facility] 04-18-2023 10:35-0500 Systolic blood pressure 154 mm[Hg] Viral CLAROS [facility] 04-18-2023 10:20-0500 Blood Pressure Location Viral CLAROS [facility] 04-18-2023 10:20-0500 Diastolic blood pressure 87 mm[Hg] Viral CLAROS [facility] 04-18-2023 10:20-0500 Heart rate 66 /min Viral CLAROS [facility] 04-18-2023 10:20-0500 Mean blood pressure 107 mm[Hg] Viral CLAROS [facility] 04-18-2023 10:20-0500 Respiratory rate 20 /min Viral CLAROS [facility] 04-18-2023 10:20-0500 Systolic blood pressure 146 mm[Hg] Viral CLAROS [facility] 04-18-2023 10:15-0500 Blood Pressure Location Viral CLAROS [facility] 04-18-2023 10:15-0500 Mean blood pressure 120 mm[Hg] Viral CLAROS [facility] 04-18-2023 10:15-0500 Respiratory rate 11 /min iVral CLAROS [facility] 04-18-2023 10:07-0500 Body temperature 97.88 [degF] Viral CLAROS [facility] 04-18-2023 10:00-0500 Respiratory rate 13 /min Viral CLAROS [facility] 04-18-2023 09:55-0500 Respiratory rate 15 /min Viral CLAROS [facility] 04-18-2023 07:52-0500 Mean blood pressure 101 mm[Hg] Viral CLAROS [facility] 04-18-2023 07:51-0500 Body temperature 97.52 [degF] Viral CLAROS [facility] 04-18-2023 07:51-0500 Mean blood pressure 110 mm[Hg] Viral CLAROS [facility] 03-29-2023 10:57-0500 Diastolic blood pressure 91 mm[Hg] Viral CLAROS [facility] 03-29-2023 10:57-0500 Heart rate 79 /min Viral CLAROS [facility] 03-29-2023 10:57-0500 Mean blood pressure 107 mm[Hg] Viral CLAROS [facility] 03-29-2023 10:57-0500 Systolic blood pressure 139 mm[Hg] Viral CLAROS [facility] 03-29-2023 10:56-0500 Heart rate 76 /min Viral CLAROS [facility] 03-29-2023 10:56-0500 SaO2% (BldA) [Mass fraction] 97 % Viral CLAROS [facility] 03-29-2023 10:56-0500 Diastolic blood pressure 104 mm[Hg] Viral CLAROS [facility] 03-29-2023 10:56-0500 Mean blood pressure 119 mm[Hg] Viral CLAROS [facility] 03-29-2023 10:56-0500 Systolic blood pressure 150 mm[Hg] Viral CLAROS [facility] 03-19-2023 14:47-0500 Body mass index (BMI) [Ratio] 36.46 kg/m2 Ramy Cong DO Work Phone: [facility] 03-19-2023 14:47-0500 Body weight 93.35 kg Ramy Cong DO Work Phone: [facility] 03-19-2023 14:47-0500 Diastolic blood pressure 82 mm[Hg] Ramy Cong DO Work Phone: [facility] 03-19-2023 14:47-0500 Systolic blood pressure 120 mm[Hg] Ramy Cong DO Work Phone: [facility] 03-19-2023 09:25-0500 Blood Pressure Location Viral CLAROS [facility] 03-19-2023 09:25-0500 Diastolic blood pressure 84 mm[Hg] Viral CLAROS [facility] 03-19-2023 09:25-0500 Systolic blood pressure 130 mm[Hg] Viral CLAROS [facility] 01-29-2023 08:30-0500 Body weight 91.17 kg Gaye Dill Other [facility] [employer] Other 01-29-2023 08:30-0500 Diastolic blood pressure 84 mm[Hg] Gaye Dill Other [facility] [employer] Other 01-29-2023 08:30-0500 Systolic blood pressure 139 mm[Hg] Gaye Dill Other [employer] Other 07-18-2022 11:45-0400 Body height 160.02 cm Gaye Dill Other [employer] Other 07-18-2022 11:45-0400 Body mass index (BMI) [Ratio] 32.41 kg/m2 Gaye Dill Other [employer] Other 07-18-2022 11:45-0400 Body weight 83.01 kg Gaye Dill Other [employer] Other 07-18-2022 11:45-0400 Diastolic blood pressure 86 mm[Hg] Gaye Dill Other [employer] Other 07-18-2022 11:45-0400 Systolic blood pressure 145 mm[Hg] Gaye Dill Other [employer] Other 06-25-2022 15:45-0400 Body height 160.02 cm Gaye Dill Other [employer] Other 06-25-2022 15:45-0400 Body mass index (BMI) [Ratio] 31.7 kg/m2 Gaye Dill Other [employer] Other 06-25-2022 15:45-0400 Body weight 81.19 kg Gaye Dill Other [employer] Other 06-25-2022 15:45-0400 Diastolic blood pressure 80 mm[Hg] Gaye Dill Other [employer] Other 06-25-2022 15:45-0400 SaO2% (BldA) [Mass fraction] 99 % Gaye Dill Other [employer] Other 06-25-2022 15:45-0400 Systolic blood pressure 132 mm[Hg] Gaye Hannah Other [employer] Other 02-09-2021 17:45-0500 Body height 160.02 cm Columba Fernandes Other [employer] Other 02-09-2021 17:45-0500 Body mass index (BMI) [Ratio] 33.65 kg/m2 Columba Fernandes Other [employer] Other 02-09-2021 17:45-0500 Body temperature 97.3 [degF] Columba Fernandes Other [employer] Other 02-09-2021 17:45-0500 Body weight 86.18 kg Columba Fernandes Other [employer] Other 02-09-2021 17:45-0500 Respiratory rate 18 /min Columba Fernandes Other [employer] Other 02-09-2021 17:45-0500 SaO2% (BldA) [Mass fraction] 99 % Columba Fernandes Other [employer] Other Encounters Encounter Date Encounter Type Care Provider Facility Start: 11-25-2024 ambulatory Viral CLAROS Facility :[facility] Start: 03-06-2024 End: 03-06-2024 ambulatory [facility] Work Phone: Start: 03-06-2024 End: 03-06-2024 Patient encounter procedure [facility] Work Phone: Start: 03-04-2024 Non-patient / Non-visit [facility] Work Phone: Start: 12-13-2023 End: 12-13-2023 ambulatory [facility] Work Phone: Start: 12-13-2023 End: 12-13-2023 Patient encounter procedure [facility] Work Phone: Start: 11-20-2023 End: 11-20-2023 ambulatory Viral CLAROS Facility:[facility] Start: 11-20-2023 End: 11-20-2023 Patient encounter procedure Viral CLAROS [facility] Start: 11-19-2023 End: 11-19-2023 ambulatory VIRAL CLAROS [facility] Start: 11-14-2023 End: 11-14-2023 ambulatory [facility] Work Phone: Start: 11-14-2023 End: 11-14-2023 Patient encounter procedure [facility] Work Phone: Start: 11-04-2023 End: 11-04-2023 Emergency department patient visit GAYE Hatch [facility] Start: 07-17-2023 End: 07-17-2023 ambulatory [facility] Work Phone: Start: 07-17-2023 End: 07-17-2023 Patient encounter procedure [facility] Work Phone: Start: 07-02-2023 End: 07-02-2023 ambulatory RAMY PATTERSONZIO Not Available Start: 06-13-2023 End: 06-13-2023 Admission to same day surgery center Viral CLAROS [facility] Start: 06-13-2023 End: 06-13-2023 ambulatory Viral CLAROS [facility] Start: 06-05-2023 End: 06-05-2023 ambulatory Viral CLAROS Facility:[facility] Start: 06-05-2023 End: 06-05-2023 Patient encounter procedure Viral CLAROS [facility] Start: 05-28-2023 End: 05-28-2023 ambulatory VELMA [facility] Start: 05-20-2023 End: 05-20-2023 Emergency department patient visit Lawson Carbone [facility] Start: 05-19-2023 End: 05-19-2023 Emergency department patient visit GAYE DILL [facility] Start: 05-17-2023 End: 05-18-2023 Emergency department patient visit ROBERT BURGESS [facility] Start: 05-10-2023 End: 05-31-2023 Pre-admission assessment Viral CLAROS [facility] Start: 05-10-2023 End: 05-10-2023 ambulatory RAMY CONG Not Available Start: 04-26-2023 Non-patient / Non-visit [facility] Work Phone: Start: 04-23-2023 End: 04-23-2023 Patient encounter procedure [facility] Work Phone: Start: 04-18-2023 End: 04-18-2023 Admission to same day surgery center Viral CLAROS [facility] Start: 04-18-2023 End: 04-18-2023 ambulatory Viral CLAROS Facility[facility] Start: 03-29-2023 End: 03-29-2023 ambulatory Viral CLAROS Facility[facility] Start: 03-29-2023 End: 03-29-2023 Patient encounter procedure Viral CLAROS [facility] Start: 03-19-2023 End: 03-19-2023 ambulatory RAMY CONG Not Available Start: 03-19-2023 End: 03-19-2023 Patient encounter procedure Ramy Coopero DO Work Phone: [facility] Start: 03-19-2023 End: 03-19-2023 Periodic preventive med est patient 18-39 yrs Ramy Coopero DO Work Phone: [facility] Comment on above: Well woman exam with routine gynecological exam Start: 03-19-2023 End: 03-19-2023 ambulatory Viral CLAROS Facility:[facility] Start: 03-19-2023 End: 03-19-2023 Patient encounter procedure Viral Alayna CLAROS [facility] Start: 03-11-2023 End: 03-11-2023 ambulatory Gaye Dill Other [employer] Other Start: 03-11-2023 Telephone encounter Gaye Dill [facility] Start: 02-22-2023 End: 02-22-2023 ambulatory Gaye Dill Other [employer] Other Start: 02-22-2023 Telephone encounter Gaye iDll [facility] Start: 02-21-2023 End: 02-21-2023 ambulatory Gaye Dill Other [employer] Other Start: 02-21-2023 Telephone encounter Gaye Dill [facility] Start: 01-29-2023 End: 01-29-2023 ambulatory Gaye Dill Other [employer] Other Start: 01-29-2023 Office outpatient vi sit 25 minutes Gaye Dill [facility] Start: 11-16-2022 End: 11-16-2022 ambulatory Gaye Dill Other [employer] Other Start: 11-16-2022 Telephone encounter Gaye Dill [facility] Start: 08-27-2022 End: 08-27-2022 ambulatory Gaye Hannah Other [employer] Other Start: 08-27-2022 Telephone encounter Gaye Dill [facility] Start: 08-23-2022 End: 08-23-2022 ambulatory Gaye Dill Other [employer] Other Start: 08-23-2022 Telephone encounter Gaye Hannah [facility] Start: 07-18-2022 End: 07-18-2022 ambulatory Gaye Hannah Other [employer] Other Start: 07-18-2022 Office outpatient vi sit 15 minutes Gaye Hannah [facility] Start: 06-25-2022 End: 06-25-2022 ambulatory Gaye Hannah Other [employer] Other Start: 06-25-2022 Office outpatient vi sit 10 minutes Gaye Dill [facility] Start: 05-18-2022 Telephone encounter Gaye Dill [facility] Start: 05-18-2022 End: 05-19-2022 ambulatory GAYE DILL [employer] Other Start: 04-10-2022 End: 04-10-2022 ambulatory Gaye Dill Other [employer] Other Start: 04-10-2022 Telephone encounter Gaye Hannah [facility] Start: 04-02-2022 End: 04-02-2022 ambulatory Gaye Dill Other [employer] Other Start: 04-02-2022 Telephone encounter Gaye Dill [facility] Start: 03-30-2022 End: 03-30-2022 ambulatory Gaye Dill Other [employer] Other Start: 03-30-2022 Telephone encounter Gaye Hannah [facility] Start: 01-25-2023 ambulatory GAYE DILL Facility :[facility] Start: 02-26-2022 End: 02-26-2022 ambulatory Gaye Dill Other [employer] Other Start: 02-26-2022 Telephone encounter Gaye Hannah [facility] Start: 08-31-2021 End: 08-31-2021 ambulatory GAYE Hatch DILL Facility:[facility] Start: 02-09-2021 End: 02-09-2021 ambulatory Columba Dena Other [employer] Other Start: 02-09-2021 Office outpatient vi sit 15 minutes Colubma Fernandes [facility] Start: 12-02-2018 Well child visit Gaye Hannah Other [employer] Other Start: 08-12-2018 End: 08-12-2018 Emergency department patient visit [facility] Procedures Date Procedure Procedure Detail Performing Clinician Start: 06-13-2023 Transurethral cystoscopy Viral IPM [place] Comment on above: Left stent removal, stone extraction, stone basket and homium laser Start: 05-28-2023 Follow-up visit Follow-up VELMA CHAND Start: 04-18-2023 Extracorporeal shock wave lithotripsy of calculus of kidney ViralGlints Start: 08-12-2018 POST OP SHOE Start: 03-14-2018 Health examination o f sub-group Gaye Hannah Other End: 07-23-2018 screening Gaye Hannah Other End: 08-20-2018 Diabetes mellitus screening Gaye Hannah Other Insertion of intraut erine contraceptive device Gaye Dill Other Lithotripsy Ladariusit Raf Placement of stent Stent placement 2 Astr it Raf Comment on above: stent in ureter visit Gaye Dill Other End: 06-29-2021 Removal of intrauterine device Gaye Dill Other Tonsillectomy Viral CLAROS Tooth structure (bod y structure) Viral appening Plan of Treatment Date Care Activity Detail Author Start: 05-03-2023 End: 05-03-2023 Clinical Support 05/03/2023 10:10 AM EDT Clinical Support [facility] [address] [place] [address] [facility] Cytology Cervical or vaginal smear or scraping study Pap Smear Pathology and Cytology Routine Well woman exam with routine gynecological exam Ordered: 03/19/2023 [facility] Work Phone: Comment on above: Ordered: 03/19/2023 Immunizations Immunization Date Immunization Notes Care Provider Barney lemus 11-02-2014 diphtheria, tetanus toxoids and acellular pertussis vaccine, unspecified formulation Gaye Dill Other [facility] 10-09-2007 DTaP, unspecified formulation Viral CLAROS [facility] 10-09-2007 poliovirus vaccine, unspecified formulation Viral appening [facility] 10-09-2007 varicella virus vaccine Jarvis nuno appening [facility] 09-27-2005 diphtheria, tetanus toxoids and acellular pertussis vaccine Viral CLAROS [facility] 09-27-2005 measles, mumps and rubella virus vaccine Viral CLAROS [facility] 11-24-2003 DTaP, unspecified formulation Viral appening [facility] 11-24-2003 measles, mumps and rubella virus vaccine Viral appening [facility] 11-24-2003 poliovirus vaccine, unspecified formulation Viral CLAROS [facility] 11-24-2003 varicella virus vaccine Jarvis CLAROS [facility] [...] Payer Medicaid [employer] [facility] [place] [id number] 2022-Present [address] [address] [place] [address] [id number] 2022 Unknown [employer] [id number] 2022-Present [address] [place] [address] [id number] 2018 Private Health Insurance [id number] 2002 Unknown [id number] 2.16.840.1.392076.3.579.2. 593 2002 Unknown [id number] 2.16.840.1.211230.3.579.2. 1259 2002 Unknown [id number] 2.16.840.1.314693.3.579.2. 1259 2002 Unknown [id number] 2.16.840.1.554669.3.579.2. 1259 2002 Unknown [id number] 2.16.840.1.043180.3.579.2. 1286 2002 Unknown [id number] 2.16.840.1.373011.3.579.2. 1286 2002 Unknown [id number] 2.16.840.1.613903.3.579.2. 1286 2002 Unknown [id number] 2.16.840.1.176520.3.579.2. 1286 2002 Unknown [id number] 2.16.840.1.859739.3.579.2. 1286 2002 Unknown [id number] 2.16.840.1.134533.3.579.2. 727 2002 Unknown [id number] 2.16.840.1.225505.3.579.2. 727 2002 Unknown [id number] 2.16.840.1.442741.3.579.2. 727 2002 Unknown [id number] 2.16.840.1.639991.3.579.2. 727 2002 Unknown [id number] 2.16.840.1.846788.3.579.2. 727 2002 Unknown [id number] 2.16.840.1.780056.3.579.2. 727 2002 Unknown [id number] 2.16.840.1.635197.3.579.2. 727 2002 Unknown [id number] 2.16.840.1.688597.3.579.2. 727 1980 Unknown [id number] 2.16.840.1.984219.3.579.2. 173 1980 Unknown [id number] 2.16.840.1.732799.3.579.2. 593 1980 Unknown [id number] 2.16.840.1.576192.3.579.2. 593 1980 Unknown [id number] 2.16.840.1.000537.3.579.2. 727 1959 Unknown [id number] 2.16.840.1.358534.19 1959 Unknown [id number] 2.16.840.1.176408.19 Social History Date Type Detail Facility Start: 08-27-2022 Sex Assigned At F [facility] Start: 08-27-2022 End: 03-19-2023 Tobacco smoking [...] r e-cigarette use Smokeless Tobacco Use:. Vaping [facility] Tobacco smoking status No Smokin g Status Entered [facility] Start: 2002 Sex Assigned At Female [facility] Work Phone: Start: 03-06-2024 Sex Female (finding) [facility] Medical Equipment Procedure Code Equipment Code Equipment Origin al Text Equipment Identifier Dates CYSTOSCOPY STENT INSERTION Viral CLAROS MD 04/18/23 Unknown Ureter L FDA Start: 04-18-2023 CYSTOSCOPY STENT INSERTION Viral CLAROS MD 04/18/23 Unknown Ureter L FDA Start: 04-18-2023 CYSTOSCOPY STENT INSERTION iVral CLAROS MD 04/18/23 Unknown Ureter L FDA Start: 04-18-2023 CYSTOSCOPY STENT INSERTION Viral CLAROS MD 04/18/23 Unknown Ureter L FDA Start: 04-18-2023 CYSTOSCOPY STENT INSERTION Viral CLAROS MD 04/18/23 Unknown Ureter L FDA Start: 04-18-2023 CYSTOSCOPY STENT INSERTION SHAWN COOK, Viral Catalan 04/18/23 Unknown Ureter L FDA Start: 04-18-2023 Functional Status Date Assessment Result Facility 11-20-2023 Functional Status N/A [facility] 06-05-2023 Functional Status N/A [facility] 06-03-2023 Functional Status No [facility] 05-20-2023 Functional Status N/A [facility] 03-29-2023 Functional Status No [facility] 03-19-2023 Functional Status N/A [facility] Joseline Clinical Notes 02-09-2021 to 12-13-2023 Note Date & Type Note Facility 12-13-2023 Evaluation note Diagnosis Onset Date Resolution Adult attention deficit disorder acute December 12 8:55am Sinusitis, acute maxillary acute December 12 8:55am [facility] Work Phone: [phone]) 851-523410-02-2024 Hospital Discharge instructions Patient Education 11/20/2023 15:35:40 Dietary Guidelines [...] include: ?8 oz (237 mL) of milk, qilynrm-djoifmmlusby-lkkjq milk, and calcium- fortifiedfruit juice. Calcium-fortified means [...] ?Spinach (cooked), rhubarb, beets, sweet potatoes, and [place] chard. ?Peanuts. ?Potato chips, senegalese fries, and baked potatoes with skin on. ?Nuts and nut products. ?Chocolate. If you regularly take a diuretic medicine, make sure to eat at least 1 or 2 servings of fruits or vegetables that are high in potassium each day. These include: ?Avocado. ?Banana. ?[place], prune, carrot, or tomato juice. ?Baked potato. [...] magnesium, fish oil, or vitamin B6. Take nrea-gve-yyrhreo and prescription medicines only as told by [...] Casseroles. Pizza. Lasagna. Frozen meals. Potato chips. German fries. The items listed above may not [...] provider. Document Revised: 05/17/2022 Document Reviewed: 05/17/2022 [employer] Patient Education 2023 [employer]. Follow Up Care 10/28/2023 14:26:35 With:SHAWN COOK, Viral Catalan, URL Address: [address] [place] [address]- When: Unknown [facility] 10-02-2024 NotePatient Education Nephrology Dietary Guidelines to Help Prevent [...] ? 8 oz (237 mL) of milk, alwozgg-ljnevbtlpcou-cxhgh milk, and calcium- fortifiedfruit juice. Calcium-fortified means [...] Spinach (cooked), rhubarb, beets, sweet potatoes, and [place] chard. ? Peanuts. ? Potato chips, senegalese fries, and baked potatoes with skin on. ? Nuts and nut products. ? Chocolate. ? If you regularly take a diuretic medicine, make sure to eat at least 1 or 2 servings of fruits orvegetables that are high in potassium each day. These include: ? Avocado. ? Banana. ? [place], prune, carrot, or tomato juice. ? Baked [...] with your dietitian to find an eating planand weight loss strategies that work best for you. General information ? Talk to your health care provider and dietitian about taking daily supplements. Depending on yourhealth and the cause of your kidney stones, you may be told: ? Do not take high-dose supplements of vitamin C (1,000 mg a day or more). ? To take a calcium supplement. ? To take a daily probiotic supplement. ? To take other supplements such as magnesium, fish oil, or vitamin B6. ? Take odgq-bvc-klzwdib and prescription medicines only as told by your health care provider. Theseinclude suppleme (more content not included)...[facility]04-25-2024 Hospital Discharge instructions Patient Education 06/13/2023 13:55:17 Post Op Patient Instructions - FT (Custom) (CUSTOM) 06/13/2023 11:26:22 Jqcu-Jsrq-ni Utereroscopy,Lithotripsy, Stone Extraction, Stent Placement (Custom) [facility] [place], [place] Dr. Viral Ramsay Post-operative Instructions for Ureteroscopy, Laser Lithotripsy, Stone Extraction and Stent Placement There are no incisions or dressings to be concerned with, as the procedure was performed inside theurinary system. For 24 hours after surgery: No [...] other reasons. If it is to remain joint terminal attack controller, however, changes of the stent are required (about every 3-4 months). Diet You may resume your normal diet, but you may want to start slowly and avoid spicy food, caffeine, carbonated beverages and alcohol, especially if you have a stent. Your diet and fluid intake may makeirritation from the stent worse. Activity You may [...] arrange for your post-operative appointment (with XRAY) [phone] Follow Up Care 05/10/2023 13:05:16 With:Viral CLAROS Address: [address] [facility] (1) When: Unknown Comments:As we discussed, my plan was to not place a stent but I felt that 1 was needed for a temporary timeframe. You can actually remove this by removing the tape and pulling on the thread. The stent shouldbe then removed without problem.I like to see her back in about 6 months or so with an abdominal x-ray prior. My office should arrange for an order to be sent to what ever facility you would like prior to that visit.I did send a prescription for antibiotics to your pharmacy. [facility]04-25-2024 Evaluation + Plan note Diagnostic Tests Pending * Calculi Analysis Urinary 06/13/23 Future Scheduled Tests Radiology* XR Abdomen 1 View 04/19/23 [facility]04-17-2024 Hospital Discharge instructions Patient Education 06/05/2023 08:46:07 Lithotripsy Lithotripsy Lithotripsy is a treatment that can help break up kidney stones that are too large to pass on theirown. This is a nonsurgical procedure that crushes a kidney stone with shock waves. These shock waves pass through your body and focus on the kidney stone. They cause the kidney stone to break up intosmaller pieces while it is still in the urinary tract. The smaller pieces of stone can pass more easily out of your body in the urine. Tell a health care provider about: Any allergies you have. All medicines you are taking, including vitamins, herbs, eye drops, creams, and qmpw-ssf-lmmymvk medicines. Any problems you or family members [...] provider tells you to take them. Taking svoo-flx-hxbeezq medicines, vitamins, herbs, and supplements. Tests You [...] taken to help prevent infection. These may includewashing skin with a germ-killing soap. What happens [...] blood oxygen level will be monitored until youleave the hospital or clinic. You may be [...] that are too large to pass on theirown. Lithotripsy is a nonsurgical procedure that crushes a kidney stone with shock waves. Generally, this is a safe procedure. However, problems may occur, including damage to the kidney orother organs, infection, or obstruction of the tube [...] provider. Document Revised: 01/01/2022 Document Reviewed: 10/09/2021 [employer] Patient Education 2022 [employer]. Follow Up Care 06/05/2023 08:12:19 With:SHAWN COOK, Viral Catalan, URL Address: [facility] [employer] [address] [place], [place] [id number]- When: Unknown [facility] 04-15-2024 Note [id number]iology Clinic Note Chief Complaint: Palpitations, HTN HPI: Sunshine Ryder [...] or concerns. Velma Chand MD Interventional Cardiology [facility]04-01-2024 Hospital Discharge instructions Patient Education 05/20/2023 14:37:25 Hematuria, Adult Hematuria, Adult Hematuria is blood in the urine. Blood may be visible in the urine, or it may be identified with a test. This condition can be caused by infections of the bladder, urethra, kidney, or prostate. Otherpossible causes include: Kidney stones. Cancer of the [...] blood in your urine, even if it ispainless or the blood stops without treatment. Blood in the urine, when it happens and then stops and then happens again, can be a symptom of a very serious condition, including cancer. There is no pain in the initial stages of many urinary cancers. Follow these instructions at home: Medicines Take yozw-rsx-kjbabrj and prescription medicines only as told by your health care provider. If you were prescribed an antibiotic medicine, take it as told by your health care provider. Do notstop taking the antibiotic even if you start to feel better. Eating and drinking Drink enough fluid to keep your urine pale yellow. It is recommended that you drink 3 4 quarts (2.83.8 L) a day. If you have been diagnosed with an infection, drinking cranberry juice in addition tolarge amounts of water is recommended. Avoid caffeine, [...] about any blood in your urine, even ifit is painless or the blood stops without treatment. Take xalt-nrd-qnqwzdf and prescription medicines only as told by your health care provider. Drink enough fluid to keep your urine pale yellow. This information is not intended to replace advice given to you by your health care provider. Make sure you discuss any questions you have with your health care provider. Document Revised: 10/05/2020 Document Reviewed: 10/05/2020 [employer] Patient Education 2022 [employer]. 05/20/2023 14:37:25 Ureteral Stent Implantation, Care After [...] Follow these instructions at home: Medicines Take ovzr-lmj-elujhrh and prescription medicines only as told by [...] actions to prevent or treat constipation: ?Take vkzo-tai-iggklty or prescription medicines. ?Eat foods that are [...] last for up to 1 week. Take zkks-zlj-zkkpezb and prescription medicines only as told by [...] provider. Document Revised: 03/12/2022 Document Reviewed: 03/12/2022 [employer] Patient Education 2022 [employer]. 05/20/2023 14:37:25 Flank Pain, Adult Flank Pain, Adult Flank pain is pain that is located on the side of the body between the upper abdomen and the spine.This area is called the flank. The pain may occur over a short period of time (acute), or it may belong-term or recurring (chronic). It may be mild [...] told by your health care provider. Take erhz-deo-nkzuksp and prescription medicines only as told by [...] provider. Document Revised: 04/17/2021 Document Reviewed: 04/17/2021 [employer] Patient Education 2022 [employer]. Follow Up Care 05/20/2023 11:33:39 With:Viral CLAROS Address: [address] [phone] Business (1) When:05/23/2023 14:21:58 Comments:Call Dr for diagnosis based follow up. Dr. Claros's office is going to call. Call the office if they do not call you in the next couple days. Continue taking Bactrim as prescribed. Return to the emergency room if your pain gets worse, fever or any new symptoms. With:GAYE DILL Address: [address] [place] [id number] Business (1) When:Within 3 Day(s) [facility]04-01-2024 Evaluation + Plan noteExtracted from: Title:ED Note Author:Raf Adler, Lawson Freire [...] Appointments Appointment Date:05/30/2023 01:30:00 PM Scheduled Provider: Location:[facility] Appointment Type:Surgical PAT FT Appointment Date:06/13/2023 11:15:00 AM Scheduled Provider: Location:[facility] Appointment Type:Surgery FT Diagnostic Tests Pending * Urine Culture 05/20/23 Future Scheduled Tests Radiology* XR Abdomen 1 View 04/19/23 [facility]02-29-2024 Evaluation + Plan noteExtracted from: Title:ANES Post-operative Note - General Author: Aamir Patel Jr., DO Date:04/18/23 Plan Transfer/Discharge: Transfer/Discharge Discharge when meets criteria ( From PACU to Ambulatory Surgery Unit, and To home ). Extracted from: Title:ANES Pre-operative Note - Adult Author:Abraham aguero Jr. Aamir PANDA Date:04/18/23 Plan [place] [employer]hesi[employer] (ASA) physical status classification: Class II. Anesthetic Preoperative Plan: Anesthesia General. [facility]02-29-2024 Hospital Discharge instructions Patient Education 04/18/2023 10:51:20 [...] Follow these instructions at home: Medicines Take jubz-bfk-xsejype and prescription medicines only as told by [...] provider. Document Revised: 01/01/2022 Document Reviewed: 10/09/2021 [employer] Patient Education 2022 [employer]. Follow Up Care 03/19/2023 10:26:52 With:Viral CLAROS Address: [facility] [address] [phone] Business (1) When: Unknown Comments:Please call my [...] the fluids to keep the urine clear. [facility]01-30-2024 History of Present illness Narrative* Ramy Gar [...] Never Past Surgical History: Procedure Laterality Date OR TONSILLECTOMY & ADENOIDECTOMY <AGE 14 Allergies Allergen [...] nursing note reviewed. Exam conducted with a sales planning coordinator present. Vitals: Estimated body mass index is 36.46 kg/m as calculated from the following: Height as of 23: 5' 3 . Weight as of this [...] of: Ramy Gar DO documented in this encounterCap[facility] [id number] Hospital Discharge instructions Patient Education 03/19/2023 10:15:59 [...] include: ?8 oz (237 mL) of milk, npdjcwp-mmyfkvjznnjm-brary milk, and calcium- fortifiedfruit juice. Calcium-fortified means [...] ?Spinach (cooked), rhubarb, beets, sweet potatoes, and St Helen[place] chard. ?Peanuts. ?Potato chips, senegalese fries, and baked potatoes with skin on. ?Nuts and nut products. ?Chocolate. If you regularly take a diuretic medicine, make sure to eat at least 1 or 2 servings of fruits or vegetables that are high in potassium each day. These include: ?Avocado. ?Banana. ?[place], prune, carrot, or tomato juice. ?Baked potato. [...] magnesium, fish oil, or vitamin B6. Take owih-zus-mtagcdp and prescription medicines only as told by [...] Casseroles. Pizza. Lasagna. Frozen meals. Potato chips. German fries. The items listed above may not [...] provider. Document Revised: 05/17/2022 Document Reviewed: 05/17/2022 [employer] Patient Education 2022 [employer]. Follow Up Care 01/29/2023 14:42:34 With:SHAWN COOK, Viral Catalan, URL Address: [address] [place], [place] [address] [phone]- When: Unknown Comments:Schedule stone procedure [facility] 01-22-2024 Evaluation note* Encounter Date Diagnosis Assessment Notes Treatment Notes Treatment Clinical Notes Feb, Adult attention deficit disorder (ICD-10 - F98.8) [facility] Other 01-05-2024 Evaluation note* Encounter Date Diagnosis Assessment Notes Treatment Notes Treatment Clinical Notes Feb, Chronic GERD (ICD-10 - K21.9) [facility] Other 01-04-2024 Evaluation note* Encounter Date Diagnosis Assessment Notes Treatment Notes Treatment Clinical Notes Feb, Essential (primary) hypertension (ICD-10 - I10) [facility] Other 12-12-2023 Evaluation note* Encounter Date Diagnosis [...] in the reasonable future. Notes continued hematuria. [facility] Other 09-29-2023 Evaluation note* Encounter Date Diagnosis Assessment Notes Treatment Notes Treatment Clinical Notes Oct, Adult attention deficit disorder (ICD-10 - F98.8) [facility] Other 05-31-2023 Evaluation note* Encounter Date Diagnosis [...] we will refer her to a opthomologist [facility] Backpack Other 05-08-2023 Evaluation note* Encounter Date Diagnosis Assessment Notes Treatment Notes Treatment Clinical Notes June, Homeless family (ICD-10 - Z59.00) Note provided. States she needs this to get help with housing through [employer]. [facility] Other 12-23-2021 Evaluation note* Encounter Date Diagnosis [...] writting by [facility] document. [facility] Other Evaluation + Plan note Future Appointments Appointment Date:03/29/2023 10:30:00 AM Scheduled Provider: Location:[facility] Appointment Type:Surgical PAT FT Appointment Date:04/18/2023 09:30:00 AM Scheduled Provider: Location:[facility] Appointment Type:Surgery FT [facility] Evaluation + Plan note Future Appointments Appointment Date:04/18/2023 09:30:00 AM Scheduled Provider: Location:[facility] Future Appointments Appointment Date:06/13/2023 11:15:00 AM Scheduled Provider: Location:[facility] Appointment Type:Surgery FT Future Scheduled Tests Radiology* XR Abdomen 1 View [facility]19[facility]23 [facility] Future Appointments Appointment Date:06/07/2023 12:30:00 PM Scheduled Provider: Location:[facility] Appointment Type:Surgical PAT FT Appointment Date:06/13/2023 11:15:00 AM Scheduled Provider: Location:[facility] Appointment Type:Surgery FT Future Scheduled Tests Radiology* XR Abdomen 1 View 04/19/23 [facility] Evaluation + Plan note Future Appointments Appointment Date:11/25/2024 03:15:00 PM Scheduled Provider:Viral CLAROS MD Location:[facility] Appointment Type:URO Office Visit Future Scheduled Tests Radiology* XR Abdomen 1 View 04/19/23 [facility] Evaluation noteNo InformationNortSelect Specialty [facility] [employer] Other Evaluation note* Diagnosis Well woman exam with routine gynecological exam Routine gynecological examination documented in this encounter [facility]* Diagnosis Onset Date Resolution Status Essential (primary) hypertension acute Migraine acute [facility] Work Phone: Evaluation noteNo assessment information available [facility] Work Phone: Evalunrlsc note* Diagnosis Onset Date Resolution Status Bronchitis acute [facility] Work Phone: History general Narrative - Reported* Type Description Date Surgical History ADENOIDECTOMY Surgical History TONSILLECTOMY Hospitalization History SEE SURGICAL [facility] Other History general Narrative - Reported* Type Description Date Medical History Adult attention deficit disorder Medical History Lumbar pain Medical History Left flank discomfort Medical History Syncope and collapse Medical History Menorrhagia Medical History Kidney stone Medical History Anxiety and depression Medical History GERD (gastroesophageal reflux di sease) Surgical History ADENOIDECTOMY Surgical History TONSILLECTOMY Hospitalization History SEE SURGICAL [facility] Other Hospital course Narrative No data available for this section [facility] Hospital Discharge instructions No data available for this section [facility] No data available for this section [facility] Summary Purpose Family History Relationship Condition Age at Onset Recorded Date/T hector Not Specified Hypertension Unknown Relationship Condition Age at Onset Recorded Date/T hector mother Hypertension Unknown Advance Directives Advance Directive Response Recorded Date/ Time Advance Directives No April 18 3:04pm Advance Directive Response Recorded Date/ Time Advance Directives No April 18 2:04pm Chief Complaint and Reason for Visit Chief Complaint Headaches Amb Documentation med refills Reason for Visit Essential (primary) hypertension Migraine Chief Complaint chest congestion, co ugh Chief Complaint chest congestion, co ugh sore throat not getting better Reason for Visit Bronchitis Chief Complaint Admit Date sore throat not getting better November 192023 8:55am Amb Documentation March 04, 2024 8 :53am ER f/u migraine/Discuss BP Meds March 06, 2024 9:59am Reason for Visit Admit Date Adult attention deficit disorder December 13, 2023 8:55am Sinusitis, acute maxillary December 13, 2023 8:55am Additional Source Comments INFORMATION SOURCE (unrecogn ized section and content) DATE CREATED AUTHOR 08/12/2018 [facility] DATE CREATED AUTHOR AUTHOR'S ORGANIZ ATION 05/26/2022 [facility] DATE CREATED AUTHOR AUTHOR'S ORGANIZ ATION 07/04/2023 [facility] EPIC DATE CREATED AUTHOR AUTHOR'S ORGANIZ ATION 08/15/2023 [facility] DATE CREATED AUTHOR AUTHOR'S ORGANIZ ATION 11/21/2023 [facility] DATE CREATED AUTHOR AUTHOR'S ORGANIZ ATION 11/22/2023 [facility] REASON FOR VISIT (unrecogniz ed section and content) Reason Comments Gynecologic Exam Patient Care team informatio n (unrecognized section and content) Chalk Tester Relationship Specialty Start Date End Date Gaye Dill MD [address] [place] [id number] PCP - General Family Medicine 07/19/22 Team [...] 2023 Charlene Nair Attending Provider Active Start: [facility] 2023 Team Status: Inactive Member Role Status Dates Gaye Dill MD Primary Care Provide r, Attending Provider Active Start: July 17, 2023 End: July 17, 2023 Team Status: Inactive Member Role Status Dates Gaye Dill MD Primary Care Provide r, Attending Provider Active Start: November 14, 2023 End: November 14, 2023 Team Status: Inactive Member Role Status Ava Dill MD Primary Care Provide r, Attending Provider Active Start: December 13, 2023 End: December 13, 2023 Team Status: Active Member Role Status Ava Dill MD Primary Care Provider Active Start: March 04, 2024 La Mock CMA Attending Provider Active Start: March 04, 2024 Team Status: Inactive Member Role Status Ava Dill MD Primary Care Provide r, Attending Provider Active Start: March 06, 2024 End: March 06, 2024 Goals (unrecognized section and content) Goals may [...] BE BASED ON THE PRIMARY CLINICAL RECORDS. [employer] provides no warranty or guarantee of the accuracy or completeness of information in this document.
[2024-03-09 15:55] LABS: Bilirubin Urine NEGATIVE (NEGATIVE); Blood Urine SMALL (NEGATIVE); Clarity Urine CLEAR (CLEAR); Color Urine YELLOW (YELLOW); Glucose Urine UA NEGATIVE (NEGATIVE); Ketones Urine 40 mg/dL (NEGATIVE); Leukocyte Esterase Urine NEGATIVE (NEGATIVE); Nitrite Urine NEGATIVE (NEGATIVE); Protein Urine 30 mg/dL (NEG/TRACE); Specific Gravity Urine 1.025 (1.005-1.025); Urobilinogen Urine 0.2 EU/dL (0.2-1.0)
[2024-03-09 15:56] LABS: Hemoglobin 16.3 g/dL (12.0-16.0); Mean Corpuscular Hemoglobin 30.4 pg (26.7-34.0); Mean Corpuscular Volume 89.6 fL (81.0-99.0); Mean Platelet Volume 11.4 fL (9.5-13.5); Platelet Count 213 10^3/uL (150-450); Red Blood Count 5.36 10^6/uL (4.20-5.40); Red Cell Distribution Width 12.8 % (11.0-15.0); White Blood Count 14.3 10^3/uL (4.0-11.0)
[2024-03-09] MEDS: 0.9 % SODIUM CHLORIDE 1,000 ML 999 ML IV (15:56)
[2024-03-09] MEDS: FAMOTIDINE/PF 20 MG/2 ML VIAL IV (15:57)
[2024-03-09] MEDS: ONDANSETRON PF 4 MG/2 ML VIAL IV (15:57)
[2024-03-09 16:00] LABS: Mucus Urine SMALL (NONE SEEN); WBC Urine 0-2 #/HPF (NONE SEEN)
[2024-03-09 16:01] LABS: Bacteria Urine TRACE #/HPF (NONE SEEN); Cast Seen? NONE SEEN #/LPF (NONE SEEN); Crystals Seen? None Seen #/HPF (None Seen); Squamous Epithelial Cell Urine FEW #/LPF (NONE/RARE)
[2024-03-09 16:28] LABS: HCG Qualitative NEGATIVE (NEGATIVE); Internal Control Within Normal Limits
[2024-03-09 16:33] LABS: Lymphocytes Absolute Manual 0.28 10^3/uL (1.20-3.80); Monocytes Absolute Manual 0.85 10^3/uL (0.30-0.80); Segmented Neut Absolute Manual 13.15 10^3/uL (1.4-6.5)
[2024-03-09 16:38] VITALS: PULSE 100; O2SAT 99
[2024-03-09 16:41] LABS: Alanine Aminotransferase 59 U/L (14-59); Albumin Globulin Ratio 1.2; Alkaline Phosphatase 59 U/L (46-116); Anion Gap 15.7; Aspartate Amino Transferase 26 U/L (15-37); BUN Creatinine Ratio 24.4; Calcium 8.5 mg/dL (8.5-10.1); Carbon Dioxide 25.2 mmol/L (21.0-32.0); Chloride 104 mmol/L (98-107); Estimated GFR (African America >60 (>=60 mL/min/1.73m^2); Estimated GFR (Non-African Ame >60 (>=60 mL/min/1.73m^2); Globulin 3.4 g/dL; Glucose 118 mg/dL (74-106); Magnesium 2.1 mg/dL (1.8-2.4); Potassium 3.9 mmol/L (3.5-5.1); Sodium 141 mmol/L (136-145); Total Protein 7.4 g/dL (6.4-8.2)
[2024-03-09] MEDS: KETOROLAC TROMETHAMINE 30 MG/ML VIAL 15 MG IVP (17:17)
--- NOTE | 2024-03-09 17:55 | ED.NAVMDI1 ---
HPI - Nausea/Vomiting/Diarrhea General Chief complaint: Nausea/Vomiting/Diarrhea Stated complaint: VOMITTING DIZZINESS FAINTING Time Seen by Provider: 03/09/24 15:23 Source: patient Mode of arrival: walk-in Limitations: no limitations History of Present Illness HPI Narrative: 24-year-old female presents to the emergency department with complaint of nausea, vomiting, and diarrhea since last night. Has had some intermittent abdominal cramping. Denies any abdominal pain currently. Denies any fever, chills. Quality:?As above Severity:?Moderate Timing:?As above, constant Context: Normal setting and activity? Modifying factors:?None Associated symptoms: as above Related Data Home Medications ?Medication ?Instructions ?Recorded ?Confirmed dextroamphetamine-amphetamine 15 15 mg PO BID 01/22/23 01/22/23 mg tablet Previous Rx's ?Medication ?Instructions ?Recorded ketorolac 10 mg tablet 10 mg PO TID PRN pain #10 tabs 01/23/23 ondansetron 4 mg disintegrating 4 mg PO Q6H PRN nausea and 01/23/23 tablet vomiting #12 tabs ondansetron 4 mg disintegrating 4 mg PO Q8H PRN nausea and 03/09/24 tablet vomiting #10 tabs Allergies Allergy/AdvReac Type Severity Reaction Status Date / Time codeine Allergy Severe Hives Verified 03/09/24 14:53 Review of Systems ROS Narrative CONST: Denies any fever, chills RESP: Denies any shortness of breath CV: Denies any chest pain GI: + Intermittent abd cramping.? + nausea, vomiting, diarrhea. : Denies any flank pain, dysuria MS: Denies any back pain, myalgias SKIN: Denies any color change, rash NEURO: Denies numbness, weakness PSYCHIATRIC: Denies confusion, agitation PFSH PFSH Medical History History of kidney stones ?Z87.442 - Personal history of urinary calculi (ICD-10) Social History Smoking status: Unknown if ever smoked Little interest or pleasure in doing things: not at all Feeling down, depressed, or hopeless: not at all Exam Narrative Exam Narrative: Vital signs reviewed Nurses notes noted CONST: Nontoxic, well appearing, well nourished, in no distress.? No diaphoresis.?? HENT: normocephalic, atraumatic, moist mucous membrane, no abnormalities of the nose noted, hearing normal CV: normal rate, regular rhythm, no murmur RESP: normal effort, speaking in complete sentences. Lung sounds clear and equal bilat.? No wheezes, rales, rhonchi GI: normal bowel sounds, soft, no distension, nontender : no CVA tenderness MS: no edema, tenderness SKIN: no pallor NEURO: A&Ox 3, no focal findings PSYCH: normal mood, affect Constitutional Vital Signs, click to edit/add: Last Vital Signs Temp 98.8 F 03/09/24 14:49 Pulse 100 H 03/09/24 16:38 Resp 16 03/09/24 16:38 BP 154/93 H 03/09/24 14:49 Pulse Ox 99 03/09/24 16:38 Course Reevaluation(s) Reevaluation #1: On reevaluation, patient reports overall improvement of her symptoms. She is tolerating p.o. Discussed with patient results, plan, and disposition. She is agreeable. Time: 17:55 Vital Signs Vital signs: Vital Signs Temperature 98.8 F 03/09/24 14:49 Pulse Rate 121 H 03/09/24 14:49 Respiratory Rate 20 03/09/24 14:49 Blood Pressure 154/93 H 03/09/24 14:49 Pulse Oximetry 97 03/09/24 14:49 Temperature 98.8 F 03/09/24 14:49 Pulse Rate 100 H 03/09/24 16:38 Respiratory Rate 16 03/09/24 16:38 Blood Pressure 154/93 H 03/09/24 14:49 Pulse Oximetry 99 03/09/24 16:38 MDM - Nausea/Vomiting/Diarrhea MDM Narrative Medical decision making narrative: This is a pleasant 24-year-old female who presents to the emergency department for evaluation of nausea, vomiting, diarrhea, intermittent abdominal cramping On arrival, afebrile, vital signs are stable Exam, nontoxic, well-appearing patient in no distress. Heart regular rate and rhythm. Lung sounds clear and equal bilaterally. Abdomen soft, nontender. IV access established, blood work is drawn. She was given 1 L normal saline, Pepcid. She did complain of headache during ED course and was given dose of Toradol Labs reveal white count of 14.3. Likely reactive. No focal signs of bacterial infection, no subjective complaints be consistent with a bacterial infection. Afebrile. No anemia, thrombocytopenia, electrolyte imbalance, renal impairment. Glucose 118. LFTs, magnesium, lipase unremarkable. test is negative. Urinalysis showed ketones. Otherwise no concerning findings Patient overall improved with treatment during ED course. She was able to tolerate p.o. fluids at time of disposition Favor nausea, vomiting, diarrhea, likely viral, mild dehydration Acute abdomen less likely based on physical exam. Abdomen soft, nontender. Pancreatitis less likely based on labs History and Record Review Additional records reviewed: No prior records Additional Tests and Interventions IV Fluids:hydration/inability to tolerate PO Diagnostic testing considered but not performed: CT scan. Patient had no abdominal pain or tenderness Re-Evaluation See ED course Disposition ? The patient was discharged. Prescriptions sent to pharmacy: [facility] Plan: Patient will be discharged to home .? Condition at time of disposition: stable, improved .? Advised to follow up with primary provider. Advised to return for any worsening and/or development of new, concerning signs or symptoms PLEASE NOTE: Portions of the medical record may have been produced using electronic production boring machine operator and may contain errors with respect to translation of words which may not have been identified prior to finalization of the chart. Lab Data Attestation: I reviewed the patient's lab results. Labs: Lab Results 03/09/24 03/09/24 03/09/24 Range/Units 15:43 15:48 16:18 WBC 14.3 H (4.0-11.0) 10^3/uL RBC 5.36 (4.20-5.40) 10^6/uL Hgb 16.3 H (12.0-16.0) g/dL Hct 48.0 (36.0-48.0) % MCV 89.6 (81.0-99.0) fL MCH 30.4 (26.7-34.0) pg MCHC 34.0 (29.9-35.2) g/dL RDW 12.8 (11.0-15.0) % Plt Count 213 (150-450) 10^3/uL MPV 11.4 (9.5-13.5) fL Seg Neuts % (Manual) 92.0 H (43.0-75.0) Lymphocytes % (Manual) 2.0 L (20.5-60.0) % Monocytes % (Manual) 6.0 (1.7-12.0) % Eosinophils % (Manual) 0.0 L (0.9-7.0) % Basophils % (Manual) 0.0 L (0.2-2.0) % Neutrophils # (Manual) 13.15 H (1.4-6.5) 10^3/uL Lymphocytes # (Manual) 0.28 L (1.20-3.80) 10^3/uL Monocytes # (Manual) 0.85 H (0.30-0.80) 10^3/uL Eosinophils # (Manual) 0.00 (0.00-0.70) 10^3/uL Basophils # (Manual) 0.00 (0.00-0.10) 10^3/uL Sodium 141 (136-145) mmol/L Potassium 3.9 (3.5-5.1) mmol/L Chloride 104 (98-107) mmol/L Carbon Dioxide 25.2 (21.0-32.0) mmol/L Anion Gap 15.7 BUN 20.0 H (7.0-18.0) mg/dL Creatinine 0.82 (0.55-1.02) mg/dL Est GFR ( Amer) >60 (>=60 mL/min/1.73m^2) Est GFR (Non-Af Amer) >60 (>=60 mL/min/1.73m^2) BUN/Creatinine Ratio 24.4 Glucose 118 H (74-106) mg/dL Calcium 8.5 (8.5-10.1) mg/dL Magnesium 2.1 (1.8-2.4) mg/dL Total Bilirubin 1.0 (0.2-1.0) mg/dL AST 26 (15-37) U/L ALT 59 (14-59) U/L Alkaline Phosphatase 59 (46-116) U/L Total Protein 7.4 (6.4-8.2) g/dL Albumin 4.0 (3.4-5.0) g/dL Globulin 3.4 g/dL Albumin/Globulin Ratio 1.2 Lipase 20.0 (16.0-77.0) U/L Serum HCG, Qual Negative (NEGATIVE) Urine Color Yellow (YELLOW) Urine Clarity Clear (CLEAR) Urine pH 6.0 (5.0-9.0) Ur Specific [place] 1.025 (1.005-1.025) Urine Protein 30 A (NEG/TRACE) mg/dL Urine Glucose (UA) Negative (NEGATIVE) mg/dL Urine Ketones 40 A (NEGATIVE) mg/dL Urine Occult Blood Small A (NEGATIVE) Urine Nitrite Negative (NEGATIVE) Urine Bilirubin Negative (NEGATIVE) Urine Urobilinogen 0.2 (0.2-1.0) EU/dL Ur Leukocyte Esterase Negative (NEGATIVE) Urine RBC 2-5 A (0-2) #/HPF Urine WBC 0-2 A (NONE SEEN) #/HPF Ur Squamous Epith Cells Few A (NONE/RARE) #/LPF Urine Crystals None seen (None Seen) #/HPF Urine Bacteria Trace A (NONE SEEN) #/HPF Urine Casts None seen (NONE SEEN) #/LPF Urine Mucus Small A (NONE SEEN) Discharge Plan Discharge Chief Complaint: Nausea/Vomiting/Diarrhea Clinical Impression: Nausea & vomiting, Diarrhea Patient Disposition: Home, Self-Care Time of Disposition Decision: 17:54 Condition: Good Mode of Transportation: Private Vehicle Prescriptions / Home Meds: New ondansetron 4 mg tablet,disintegrating 4 mg PO Q8H PRN (Reason: nausea and vomiting) Qty: 10 0RF No Action dextroamphetamine-amphetamine 15 mg tablet 15 mg PO BID ketorolac 10 mg tablet 10 mg PO TID PRN (Reason: pain) Qty: 10 0RF ondansetron 4 mg tablet,disintegrating 4 mg PO Q6H PRN (Reason: nausea and vomiting) Qty: 12 0RF Print Language: Turkmen Instructions: Acute Nausea and Vomiting (ED), Acute Diarrhea (ED) Referrals: Leticia Young MD [Primary Care Provider] - 1 week
[2024-03-09 17:59] VITALS: BP 143/90; PULSE 91; O2SAT 98
== END 2024-03-09 18:03 | disposition home or self-care (01) ==
PROVIDERS: Physician Assistant; Emergency Provider Emergency Medicine; PCP Family Medicine
DX: R11.2 Nausea with vomiting, unspecified (principal); R19.7 Diarrhea, unspecified; Z87.442 Personal history of urinary calculi
CPT/HCPCS: 36415; 80053; 81001; 83690; 83735; 84703; 85007; 85027; 96361; 96374; 96375; 99285; J1885; J2405

== ENCOUNTER 2024-08-19 12:12 | Outpatient (OUT) | payer OTHER, SELFPAY ==
--- OUTSIDE RECORDS SUMMARY | 2023-06-18 06:00 | XMS_ITS ---
Author Organization The [facility] in [place] Address [address] [place] [address] Care Team Providers Care Printing Technician Name Role Phone Leticia Young Primary Care Provider Osman Gordon [facility] [phone] REASON FOR VISIT ingrown toenail Encounters Encounter Location Date Provider Diagnosis [facility] (PODIATRY) [address] [place] [address] [place] [address] 06/18/2023 Osman Hurley Plan Of Treatment No Information Progress Notes * Sunshine RYDERDOB:2000 (24 yo F)Acc No.[id number]:06/18/2023 UNLOCKED PROGRESS NOTE New Patient Patient: Sunshine ALVAREZ Provider: Alayna Hurley DPM, MS :2000 A ge:23 Y S ex:Female Date:06/18/2023 Address:[address] [place], [place] [address] Pcp:Leticia Young Subjective: * Chief Complaints: * 1 . Ingrown toenail. * Medical History: Objective: * Vitals: Assessment: Plan: * Treatment: * * Electronic signature of Gilberto Hurley DPM on 08/19/2024 at 11:29 AM EDT Sign off status: Pending Visit Status: N /S N/C (No Show/No Charge) * Provider: Alayna Hurley DPM, MS Date: 06/18/2023 Generated for Printi ng/Faxing/eTransmitting on: 0 08/19/2024 11:29 AM EDT
--- OUTSIDE RECORDS SUMMARY | 2023-10-17 10:20 | XMS_ITS ---
Author Organization [facility] in [place] Address [address] [place] [address] Care Team Providers Care Barrel Liner Name Role Phone Leticia Young Primary Care Provider Glenny Mendes Unavailable [phone] Allergies Allergen (clinical drug ingredient) Drug/Non Drug Allergy documented on EMR Reaction Allergy Type Onset Date Status codeine Codeine Unknown Drug Allergy Active REASON FOR VISIT Left foot great toenail ingrown Medications Medication SIG (Take, Route, Fr equency, Duration) Notes Start Date End Date Status Adderall 20 MG 1 tablet Orally Twice a day 024 Active Magnesium 200 MG 2 tablets with a justina l Orally Once a day 10/17/2023 Active Social History Tobacco Use: Social History Observation Description Date Details (start date - stop date) Never Smoker NA - NA Tobacco Control (Standard) Question Answer Notes Tobacco use: Nonsmoker Vital Signs Weight 195 lbs 10/17/2023 Height 63 in 10/17/2023 Temperature 98.6 degrees Fahrenheit 10/17/19 24 Heart Rate 69 /min 10/17/2023 Respiratory Rate 16 /min 10/17/2023 BMI 34.54 kg/m2 10/17/2023 Encounters Encounter Location Date Provider Diagnosis [facility] (PODIATRY) [address] [place] [address] [place] [address] 10/17/2023 Glenny Ansari Ingrowing nail L60.0 Assessments Encounter Date Diagnosis (ICD Code) Assessment Notes Treatment Notes Treatment Clinical Notes Section Notes 10/17/2023 Ingrowing nail (ICD-10 - L60.0) Patient is a 23-year-old female who presents for evaluation of painful ingrowing of the left hallux medial nail border. The patient states she has been dealing with ingrown toenail at this location off and on for the past year. Physical examination reveals ingrowing of the nail without evidence of paronychia. I offered chemical matrixectomy of the medial nail border and the patient accepted. After verbal consent, the skin over the toe was prepped using alcohol. The digital block was performed using lidocaine 1% plain. After adequate anesthesia was verified, a tourniquet was placed over the toe. The nail elevator and soft tissue nippers were used to lift the nail. A hemostat was then used to remove the offending nail border. The nail borders were thoroughly curetted and removed of any foreign material. A total of 3 applications of phenol were placed to the nail matrix, and held for 30 seconds at a time. Between phenol applications, the nail borders were thoroughly curetted. The area was then flushed with copious amounts of isopropyl alcohol. The tourniquet was then removed and normal capillary refill was verified. Antibiotic ointment was placed over the area, which was then covered with a loosely placed, dry, sterile dressing. The patient was given instructions on wound care and dressing changes. The patient will follow-up in 2 weeks for reevaluation, and was advised to follow-up sooner if any signs of worsening infection develop in the interim. Plan Of Treatment Treatment Notes Assessment Notes Ingrowing nail Patient is a 23-year-old female who presents for evaluation of painful ingrowing of the left hallux medial nail border. The patient states she has been dealing with ingrown toenail at this location off and on for the past year. Physical examination reveals ingrowing of the nail without evidence of paronychia. I offered chemical matrixectomy of the medial nail border and the patient accepted. After verbal consent, the skin over the toe was prepped using alcohol. The digital block was performed using lidocaine 1% plain. After adequate anesthesia was verified, a tourniquet was placed over the toe. The nail elevator and soft tissue nippers were used to lift the nail. A hemostat was then used to remove the offending nail border. The nail borders were thoroughly curetted and removed of any foreign material. A total of 3 applications of phenol were placed to the nail matrix, and held for 30 seconds at a time. Between phenol applications, the nail borders were thoroughly curetted. The area was then flushed with copious amounts of isopropyl alcohol. The tourniquet was then removed and normal capillary refill was verified. Antibiotic ointment was placed over the area, which was then covered with a loosely placed, dry, sterile dressing. The patient was given instructions on wound care and dressing changes. The patient will follow-up in 2 weeks for reevaluation, and was advised to follow-up sooner if any signs of worsening infection develop in the interim. Next Appt Details Follow Up: 2 Weeks, Reason: Progress Notes * Sunshine RYDERDOB:2000 (23 yo F)Acc No.[id number]:10/17/2023 New Patient Patient: Sunshine ALVAREZ Provider: Medhat Ansari PA-C :2000 A ge:23 Y S ex:Female Date:10/17/2023 Address:[address] [place], [place] [id number] Pcp:Leticia Young Check In:02:24 PM ESTCheck O ut:03:21 PM EST Subjective: * Chief Complaints: * L eft foot great toenail ingrown * HPI: G eneral: c/o left great toenail pain on and off x 1 year. States on and off infected due to picking at it . Outer aspect of left great toenail hurts worse. Pain mostly when in shoes and bumps it. no drainage or redness at present. * ROS: G eneral/Constitutional: Chills d enies. F ever d enies. W eight gain?denies. W eight loss d enies. S kin: Skin Ulcers d enies. S kin lesion(s) d enies. ? C ardiovascular: Difficulty breathing on exertion d enies. L eg cramps?denies. E marylin d enies. C hest pain d enies. R espiratory: Difficulty breathing d enies. D yspnea d enies.?Cough d enies. G astrointestinal: Diarrhea d enies. N ausea d enies. V omiting?denies. M usculoskeletal: Bone/Joint Symptoms d enies. C анна Pain d enies.?Leg cramps d enies. N eurologic: Numbness d enies. T ingling d enies . G ait abnormality d enies. ? H ematology: Anemia D enies. E asy bruising d enies. ? A ll Other Systems: Review of Systems (ROS) S ee HPI for details,All others negative except those mentioned in HPI. * Active Problem List ?Problem List has not been verified* Medical History: * Surgical History: t onsillectomy lithotripsy * Hospitalization/Major Diagno stic Procedure: D enies Past Hospitalization * Family History: N o Family History documented.. * Social History: T obacco Use: T obacco Control (Standard) T obacco use: N onsmoker * Medications: T akingAdderall(Amphetamine-Dextroamphetamine) 20 MG Tablet 1 tablet Orally Twice a day Magnesium 200 MG Tablet 2 tablets with a meal Orally Once a day Medication List reviewed and reconciled with the patientTaking Adderall(Amphetamine-Dextroamphetamine) 20 MG Tablet 1 tablet Orally Twice a day Taking Magnesium 200 MG Tablet 2 tablets with a meal Orally Once a day Medication List reviewed and reconciled with the patient * Allergies: C kenna[Allergies Verified] Objective: * Vitals: W t:195lbs, Ht:63in, Temp:98.6F, HR:69/min, RR:16/min, BMI:34.54Index, Pain scale:41-10, Ht-cm: 160.02 cm, Wt-k.45 kg. * Examination: P odiatry Examination: SKIN: s kin intact, n o sign of infection Ingrowing of the left hallux medial nail border without evidence of paronychia. MUSCULOSKELETAL: p ain on palpation limited to left great toe, Range of motion of ankle and foot is within normal limits, Muscle strength is 5/5 in all planes. NEUROLOGICAL: L ight touch sensation is intact in all nerve distributions, Negative Tinel sign. VASCULAR: P alpable pedal pulses bilaterally, No swelling, No calf pain on squeeze. Assessment: * Assessment: 1. I ngrowing nail - L60.0 (Primary) Plan: * Treatment: * Procedure Codes: 1 175 EXCISION-NAILMATRIX, Modifiers: TA * Preventive Medicine: Screenings/Counseling: B PR ACTION PLAN Above Normal BMI Follow-up D ietary management education, guidance, and counseling F ALL RISK SCREENING Fall Risk Assessment: N o falls in the past year * Follow Up: 2 Weeks * * Sign off status: Completed Visit Status: C HK (Check Out) true * Provider: Medhat Ansari PA-C Date: 0 10/17/2023 Generated for Daniel clarke/Riya/eTransmitting on: 0 08/19/2024 12:19 PM EDT History and Physical Notes * HPI (History of Present Illness) Category Sub-Category Detail Notes Category Not es General c/o left great toenail pain on and off x 1 year. States on and off infected due to picking at it . Outer aspect of left great toenail hurts worse. Pain mostly when in shoes and bumps it. no drainage or redness at present. Examination Category Sub-Category Detail Notes Category Not es Podiatry Examination SKIN: skin intact , no sign of infection Ingrowing of the left hallux medial nail border without evidence of paronychia MUSCULOSKELETAL: pain on palpation li mited to left great toe, Range of motion of ankle and foot is within normal limits, Muscle strength is 5/5 in all planes NEUROLOGICAL: Light touch sensatio n is intact in all nerve distributions, Negative Tinel sign VASCULAR: Palpable pedal pulse s bilaterally, No swelling, No calf pain on squeeze
--- OUTSIDE RECORDS SUMMARY | 2023-10-31 11:20 | XMS_ITS ---
Author Organization [facility] in [place] Address [address] [place] [address] Care Team Providers Care Conveyor System Operator Name Role Phone Leticia Young Primary Care Provider Glenny Mendes Unavailable [phone] Allergies Allergen (clinical drug ingredient) Drug/Non Drug Allergy documented on EMR Reaction Allergy Type Onset Date Status codeine Codeine Unknown Drug Allergy Active REASON FOR VISIT 2 week f/u Medications Medication SIG (Take, Route, Fr equency, Duration) Notes Start Date End Date Status Magnesium 200 MG 2 tablets with a justina l Orally Once a day 10/17/2023 Active Adderall 20 MG 1 tablet Orally Twice a day 024 Active Labetalol HCl 100 MG Oral for 30 Days Active Social History Tobacco Use: Social History Observation Description Date Details (start date - stop date) Never Smoker NA - NA Tobacco Control (Standard) Question Answer Notes Tobacco use: Nonsmoker Problems Problem Type SNOMED Code ICD Code Onset Dates Problem Status W/U Status Risk Notes Problem [id number] 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 Vital Signs Weight 195 lbs 10/31/2023 Height 63 in 10/31/2023 Temperature 97.5 degrees Fahrenheit 10/31/19 24 Heart Rate 91 /min 10/31/2023 Respiratory Rate 18 /min 10/31/2023 BMI 34.54 kg/m2 10/31/2023 Oximetry 98 % 10/31/2023 Encounters Encounter Location Date Provider Diagnosis [facility] (PODIATRY) [address] [place] [address] [place] [address] 10/31/2023 Glenny Ansari Ingrowing nail L60.0 and Other specified congenital malformations of skin Q82.8 Assessments Encounter Date Diagnosis (ICD Code) Assessment Notes Treatment Notes Treatment Clinical Notes Section Notes 10/31/2023 Ingrowing nail (ICD-10 - L60.0) The patient is a 23-year-old female who underwent chemical matrixectomy of the left hallux medial nail border 2 weeks ago. She presents for reevaluation. She denies pain at the procedure site. No sign of infection. She may follow-up as needed. 10/31/2023 Other specified congenital malformations of skin (ICD-10 - Q82.8) The patient also inquired about plantar lateral heel pain bilaterally. On the right foot she did have a mild callus that was pared without incident. No callus on the left. The patient's shoes were noted to be extremely worn and I suspect this is causing her foot pain. I recommend she either obtain new shoes or at least get new OTC inserts to put in the shoes. Plan Of Treatment Treatment Notes Assessment Notes Ingrowing nail The patient is a 23- year-old female who underwent chemical matrixectomy of the left hallux medial nail border 2 weeks ago. She presents for reevaluation. She denies pain at the procedure site. No sign of infection. She may follow-up as needed. Other specified congenital m alformations of skin The patient also inquired about plantar lateral heel pain bilaterally. On the right foot she did have a mild callus that was pared without incident. No callus on the left. The patient's shoes were noted to be extremely worn and I suspect this is causing her foot pain. I recommend she either obtain new shoes or at least get new OTC inserts to put in the shoes. Next Appt Details Follow Up: prn, Reason: Progress Notes * Sunshine RYDERDOB:2000 (23 yo F)Acc No.[id number]:10/31/2023 Follow Up Patient: Sunshine ALVAREZ Provider: Medhat Ansari PA-C :2000 A ge:23 Y S ex:Female Date:10/31/2023 [address] [address] [id number] Pcp:Leticia Young Check In:03:20 PM ESTCheck O ut:03:40 PM EST Subjective: * Chief Complaints: * 2 week f/u * HPI: G eneral: Patient here for a follow up from a left great medial toenail removal. She states it has healed very quick, denies pain. However, complains of intermittent bruise-feeling, bump on bilateral lateral feet. Says pain is relieved when resting, off feet. * ROS: G eneral/Constitutional: Chills d enies. [...] Other Systems: Review of Systems (ROS) S HPI for details,All others negative except those mentioned in HPI. * Active Problem List Q82.8 Other specified giovani enital malformations of skin Modified On:10/31/2023W/U Status:confirmed * Medical History: * Surgical History: t onsillectomy lithotripsy * Hospitalization/Major Diagno stic Procedure: D enies Past Hospitalization * Family History: N on-Contributory. * Social History: T obacco Use: T obacco Control (Standard) T obacco use: N onsmoker * Medications: T akingAdderall(Amphetamine-Dextroamphetamine) 20 MG Tablet 1 tablet Orally Twice a day Labetalol HCl 100 MG Tablet Oral Magnesium 200 MG Tablet 2 tablets with a meal Orally Once a day Medication List reviewed and reconciled with the patientTaking Adderall(Amphetamine-Dextroamphetamine) 20 MG Tablet 1 tablet Orally Twice a day Taking Labetalol HCl 100 MG Tablet Oral Taking Magnesium 200 MG Tablet 2 tablets with a meal Orally Once a day Medication List reviewed and reconciled with the patient * Allergies: Braxton pierson[Allergies Verified] Objective: * Vitals: W t:195lbs, Ht: 63 in, Temp:97.5F, HR:91/min, RR:18/min, BMI:34.54Index, Pain scale:01-10, Oxygen sat %:98%, Ht-cm: 160.02 cm, Wt-k.45 kg. * Examination: P odiatry Examination: SKIN: s kin intact, n o sign of infection Left hallux medial nail border is healing from recent matrixectomy. no edema, tenderness, or active drainage. Mild callus formation bilaterally on the lateral plantar heels.. MUSCULOSKELETAL: N o pain on palpation, Range of motion of ankle and foot is within normal limits, Muscle strength is 5/5 in all planes. NEUROLOGICAL: L ight touch sensation is intact in all nerve distributions, Negative Tinel sign. VASCULAR: P alpable pedal pulses bilaterally, No swelling, No calf pain on squeeze. Assessment: * Assessment: 1. I ngrowing nail - L60.0 (Primary) 2 . O ther specified congenital malformations of skin - Q82.8 Plan: * Treatment: 2. O ther specified congenital malformations of skin Notes: The patient also inquired about plantar lateral heel pain bilaterally. On the right foot she did have a mild callus that was pared without incident. No callus on the left. The patient's shoes were noted to be extremely worn and I suspect this is causing her foot pain. I recommend she either obtain new shoes or at least get new OTC inserts to put in the shoes. ? * Procedure Codes: * Preventive Medicine: Screenings/Counseling: B [place] ACTION PLAN Above Normal BMI Follow-up D ietary management education, guidance, and counseling * Follow Up: p rn * * Sign off status: Completed Visit Status: C HK (Check Out) true * Provider: Medhat Ansari PA-C Date: 0 10/31/2023 Generated for Daniel clarke/Faxing/eTransmitting on: 0 08/19/2024 11:29 AM EDT History and Physical Notes * HPI (History of Present Illness) Category Sub-Category Detail Notes Category Not es General Patient here fo r a follow up from a left great medial toenail removal. She states it has healed very quick, denies pain. However, complains of intermittent bruise-feeling, bump on bilateral lateral feet. Says pain is relieved when resting, off feet. Examination Category Sub-Category Detail Notes Category Not es Podiatry Examination SKIN: skin intact , no sign of infection Left hallux medial nail border is healing from recent matrixectomy. no edema, tenderness, or active drainage. Mild callus formation bilaterally on the lateral plantar heels. MUSCULOSKELETAL: No pain on palpation , Range of motion of ankle and foot is within normal limits, Muscle strength is 5/5 in all planes NEUROLOGICAL: Light touch sensatio n is intact in all nerve distributions, Negative Tinel sign VASCULAR: Palpable pedal pulse s bilaterally, No swelling, No calf pain on squeeze
--- OUTSIDE RECORDS SUMMARY | 2024-08-19 11:20 | XMS_ITS | Encounter Summary ---
Author Organization [facility] Address [address] [place] [address] Care Team Providers Care Jewelry Making Instructor Name Role Phone Leticia Young MD Primary Care Provider [phone] Reason for Visit * Reason Comments Gynecologic Exam Pt present today for annual visit. Infertility Pt present today to discuss infertility issue. Patient states she has not had a period since May 2024 and has taken tests and all come back negative. Encounter Details Date Type Department Care Team (Late st Contact Info) Description 08/19/2024 11:20 AM EDT Office Visit [facility] [address] [place] [phone] Ramy Gar, DO [address] [place] [address] Well woman exam with routine gynecological exam; Female infertility; Amenorrhea; PCOS (polycystic ovarian syndrome) Social History Tobacco Use Types Packs/Day Years Used Date Smoking Tobacco: Never Smokeless Tobacco: Never Alcohol Use Standard Drinks/Week Comments Never 0 (1 standard drink = 0.6 oz pur e alcohol) Comments No Sex and Gender Information Value Date Recorded Sex Assigned at Not on file Legal Sex Female 6:52 PM EDT Gender Identity Not on file Sexual Orientation Not on file documented as of this encounter Last Filed Vital Signs Vital Sign Reading Time Taken Comments Blood Pressure 132/80 08/19/2024 11:36 AM EDT Pulse - - Temperature - - Respiratory Rate - - Oxygen Saturation - - Inhaled Oxygen Concentration - - Weight 101 kg (222 lb) 08/19/2024 11:36 AM EDT Height 160 cm (5' 3 ) 08/19/2024 11:36 AM EDT Body Mass Index 39.33 08/19/2024 11:36 AM EDT documented in this encounter Plan of Treatment Upcoming Encounters Date Type Department Care Team (Late st Contact Info) Description 09/15/2024 10:50 AM EDT Office Visit [facility] [address] [place] [phone] Ramy Gar, DO [address] [place] [address] Scheduled Orders Name Type Priority Associated Diagnoses Orde r Schedule Pap Smear Pathology and Cytology Routine Well woman exam with routine gynecological exam Ordered: 08/19/2024 hCG, quantitative, Lab Routine PCOS (polycystic ovarian syndrome) Ordered: 08/19/2024 TSH Lab Routine PCOS (polycystic ovarian syndrome) Ordered: 08/19/2024 T4, free Lab Routine PCOS (polycystic ovarian syndrome) Ordered: 08/19/2024 CBC and differential Lab Routine PCOS (polycystic ovarian syndrome) Ordered: 08/19/2024 Follicle stimulating hormone Lab Routine PCOS (polycystic ovarian syndrome) Ordered: 08/19/2024 Luteinizing hormone Lab Routine PCOS (polycystic ovarian syndrome) Ordered: 08/19/2024 Hemoglobin A1c Lab Routine Amenorrhea Ordered: 08/19/2024 DHEA-sulfate Lab Routine PCOS (polycystic ovarian syndrome) Ordered: 08/19/2024 DHEA Lab Routine PCOS (polycystic ovarian syndrome) Expected: 08/19/2024 (Approximate), Expires: 08/19/2025 US Pelvis w/ TV Imaging Routine PCOS (polycystic ovarian syndrome) Expected: 08/19/2024, Expires: 08/19/2025 Prolactin Lab Routine Amenorrhea Ordered: 08/19/2024 documented as of this encounter Procedures Procedure Name Priority Date/Time Associated Diagnosis Comments POCT , URINE Routine 08/19/2024 11:49 AM EDT Female infertility Amenorrhea POCT URINALYSIS DIPSTICK Routine 08/19/2024 11:49 AM EDT Well woman exam with routine gynecological exam documented in this encounter Results * (ABNORMAL) POCT urinalysis dipstick manually resulted (08/19/2024 11:49 AM EDT) Color, UA Yellow Clarity, UA Clear Glucose, UA Negative Negative - 2000(110) ++++ mg/dL Bilirubin, UA Positive Negative - 4(70) +++ mg/dL Comment:small Ketones, UA Positive Negative - 160(16) ++++ mg/dL Comment:trace Spec Grav, UA 1.025 1 - 1.03 Blood, UA Positive Negative - 50 Mo/mcL Comment:trace pH, UA 6.0 5 - 9 Protein, UA Positive Negative - 2000(20) ++++ mg/dL Comment:30 Urobilinogen, UA 0.2 0.2 - 12 mg/dL Leukocytes, UA Negative Negative - 500+++ Mitchell/mcL Nitrite, UA Negative Negative - Positive Urine 08/19/2024 11:4 9 AM EDT Ramy Cong DO POINT OF CARE TEST ENTER/EDIT OR DERABLES Final Result * POCT , urine manually resulted (08/19/2024 11:49 AM EDT) Preg Test, Ur Negative Negative Urine 08/19/2024 11:4 9 AM EDT Ramy Cong DO POINT OF CARE TEST ENTER/EDIT OR DERABLES Final Result documented in this encounter Visit Diagnoses Diagnosis Well woman exam with routine gynecological exam Routine gynecological examination Female infertility Female infertility of unspecified origin Amenorrhea Absence of menstruation PCOS (polycystic ovarian syndrome) Polycystic ovaries documented in this encounter Care Teams Jewelry Making Instructor Relationship Specialty Start Date End Date Leticia Young MD [address] [place] [phone] PCP - General Family Medicine 07/19/22 documented as of this encounter
--- OUTSIDE RECORDS SUMMARY | 2024-08-19 12:20 | XMS_ITS | Clinical Summary ---
Author Organization [facility] Address [address] [place] [address] Care Team Providers Care Planning Coordinator Name Role Phone Leticia Young MD Primary Care Provider [phone] Allergies Active Allergy Reactions Criticality Noted Date Comments Luis Orozco 08/12/2018 Medications amphetamine-dextr oamphetamine XR (Adderall XR) 15 mg 24 hr capsule Take 15 mg by mouth 2 times daily. Do not crush or chew. Active oxybutynin (Ditropan) 5 mg tablet Take 5 mg by mouth in the morning and at bedtime. Active metoprolol succinate XL (Toprol-XL) 25 mg 24 hr tablet Take 25 mg by mouth in the morning. Do not crush or chew. Active tamsulosin (Flomax) 0.4 mg 24 hr capsule Take 0.4 mg by mouth in the morning. Active topiramate (Topamax) 25 mg tablet Take 25 mg by mouth in the morning and at bedtime. Active famotidine (Pepcid) 20 mg tablet Take 20 mg by mouth at bedtime. Active SUMAtriptan (Imitrex) 100 mg tablet Take 100 mg by mouth 2 times daily. Active carvedilol (Coreg) 6.25 mg tabletIndications :Essential hypertension Take 1 tablet (6.25 mg) by mouth with breakfast and with evening meal. 180 tablet 3 4 Active Active Problems Problem Noted Date Diagnosed Date Dizziness 02/01/2022 Assessment & Plan (02/02/2022 11:45 PM EST): -she said this resolved with medication but it was stopped per her neurologist -follow up as scheduled with neurologist group -continue to monitor heart rate and blood pressure during events and daily Palpitations 02/01/2022 Assessment & Plan (02/02/2022 11:43 PM EST): -she states they happen frequently so I will order a holter monitor for now -she may need loop recorder Atypical chest pain 02/01/2022 CELAYA (dyspnea on exertion) 02/01/2022 Assessment & Plan (02/02/2022 11:42 PM EST): -due to her age I suspect this is likely related to lack of endurance or exercise tolerane -we discussed lifestyle changes and adding an exercise regimen to her zully Family History Medical History Relation Name Comments Heart attack Maternal Grandfather Stroke Maternal Grandfather Heart attack Maternal Grandmother Hypertension Mother Relation Name Status Comments Maternal Grandfather Maternal Grandmother Mother Social History Tobacco Use Types Packs/Day Years Used Date Smoking Tobacco: Never Passive Smoke Exposure: Current Tobacco Cessation:Counseling Given: Not Answered Alcohol Use Standard Drinks/Week Comments Not Currently 0 (1 standard drink = 0.6 oz pur e alcohol) [place] Safety & Environment Answer Date Rec orded Fear of Current or Ex-Partner Not on file Emotionally Abused Not on file 04/11/2023 Physically Abused Not on file 04/11/2023 Sexually Abused Not on file 04/11/2023 Physically or Sexually Abused Not on file Comments Unknown Sex and Gender Information Value Date Recorded Sex Assigned at Not on file Legal Sex Female 10:58 PM EDT Gender Identity Not on file Sexual Orientation Not on file Last Filed Vital Signs Vital Sign Reading Time Taken Comments Blood Pressure 124/90 05/28/2023 11:48 AM EDT Pulse 83 05/28/2023 11:48 AM EDT Temperature - - Respiratory Rate 12 05/28/2023 11:48 AM EDT Oxygen Saturation 98% 05/28/2023 11:48 AM EDT Inhaled Oxygen Concentration - - Weight 84.4 kg (186 lb) 02/01/2022 11:11 AM EST Height 160 cm (5' 3 ) 05/28/2023 11:48 AM EDT Body Mass Index 32.95 02/01/2022 11:11 AM EST Plan of Treatment Health Maintenance Due Date Last Done Comments Depression Screening 2014 Varicella Vaccines (1 of 2 - 13+ 2-dose series) 2015 HPV Vaccines (1 - 3-dose series) 2017 Meningococcal B Vaccine (1 o f 2 - Standard) 2018 COVID-19 Vaccine (1 - 2023-2 5 season) 2023 Adult Tetanus 02/07/2024 Influenza Vaccine (#1) 2024 Pap Smear 03/19/2026 03/19/2023 Zoster Vaccines (1 of 2) 02/07/2052 HIB Vaccines Aged Out No longer eligi ble based on patient's age to complete this topic IPV Vaccines Aged Out No longer eligi ble based on patient's age to complete this topic Meningococcal Vaccine Aged Out No inga reid eligible based on patient's age to complete this topic Pneumococcal Vaccine: Pediat rics (0 to 5 Years) and At-Risk Patients (6 to 64 Years) Aged Out No longer eligi ble based on patient's age to complete this topic Rotavirus Vaccines Aged Out No longer eligible based on patient's age to complete this topic Insurance [employer] Care Teams Planning Coordinator Relationship Specialty Start Date End Date Leticia Young MD [address] [facility] PCP - General 02/01/22
--- OUTSIDE RECORDS SUMMARY | 2024-08-19 12:20 | XMS_ITS | Patient Health Record ---
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 Vital Signs Heart Rate 91 /min 10/31/2023 Temperature 97.5 degrees Fahrenheit 10/31/2023 Respiratory Rate 18 /min 10/31/2023 Oximetry 98 % 10/31/2023 Height 63 in 10/31/2023 Weight 195 lbs 10/31/2023 BMI 34.54 kg/m2 10/31/2023 Encounters Encounter Location Date Provider Diagnosis [facility] [address] [place] [address] [place] [address] 10/17/2023 Glenny Ansari Ingrowing nail L60.0 [facility] [address] [place] [address] 10/31/2023 Glenny Ansari Ingrowing nail L60.0 and [...] of worsening infection develop in the interim. 10/31/2023 Ingrowing nail (ICD-10 - L60.0) The [...] put in the shoes. Plan Of Treatment No Information Insurance Providers Payer Name Payer Address Payer Phone Subscriber Number Group Number Insured Name Patient Relationship to Insured Coverage Start Date Coverage End Date [facility] [address] [place], [place] [id number] Sunshine Lin Self - patient is the insured [employer] [address] [address] [place] [address] [id number] Sunshine Lin Self - patient is the insured Medical (General) History Medical History History ICD Code hypertension Surgical History Surgery Date(Month/Year) lithotripsy tonsillectomy
--- OUTSIDE RECORDS SUMMARY | 2024-08-19 12:20 | XMS_ITS | Clinical Summary ---
Author Organization [facility] Address [address] [place] [address] Care Team Providers Care Wheel Shop Supervisor Name Role Phone Unavailable Primary Care Provider Unavailabl e Allergies Active Allergy Reactions Criticality Noted Date Comments Codewanda Hives 08/12/2018 Social History Tobacco Use Types Packs/Day Years Used Date Smoking Tobacco: Never Smokeless Tobacco: Never Alcohol Use Standard Drinks/Week Comments Not Currently 0 (1 standard drink = 0.6 oz pur e alcohol) Comments Unknown Sex and Gender Information Value Date Recorded Sex Assigned at Not on file Legal Sex Female 8:03 PM EDT Gender Identity Not on file Sexual Orientation Not on file Last Filed Vital Signs Vital Sign Reading Time Taken Comments Blood Pressure 118/85 08/12/2018 8:22 PM EDT Pulse 79 08/12/2018 8:22 PM EDT Temperature 37 C (98.6 F) 08/12/2018 8:11 PM EDT Respiratory Rate 18 08/12/2018 8:22 PM EDT Oxygen Saturation 96% 08/12/2018 8:22 PM EDT Inhaled Oxygen Concentration - - Weight - - Height - - Body Mass Index - - Plan of Treatment Not on file Insurance [employer]
--- OUTSIDE RECORDS SUMMARY | 2024-08-19 12:20 | XMS_ITS | Clinical Summary ---
Author Organization [facility] Address [facility] [id number] [address] [place] [address] Care Team Providers Care Corset Maker Name Role Phone Leticia Young MD Primary Care Provider [phone] Allergies Active Allergy Reactions Criticality Noted Date Comments Codeine Hivtiff 08/12/2018 Medications butalbital-acetamin ophen-caff (FIORICET, ESGIC) 50-325-40 mg per tablet Take 1 tablet by mouth every 4 (four) hours as needed for headaches. 30 tablet 3 Active ondansetron ODT (ZOFRAN ODT) 4 mg disintegrating tablet Dissolve 1 tablet (4 mg total) on tongue every 8 (eight) hours as needed for nausea for up to 10 doses. 10 tablet 4 Active labetaloL (NORMODYNE) 100 mg tablet Take 1 tablet (100 mg total) by mouth in the morning. Active amphetamine-dextroa mphetamine XR (ADDERALL XR) 20 mg 24 hr capsule Take 1 capsule (20 mg total) by mouth in the morning and at bedtime. Max Daily Amount: 40 mg Active Encounters Date Type Department Care Team Description 05/30/2024 8:06 PM EDT - 05/30/2024 9:55 PM EDT Emergency [facility] [address] [place] [address] Ekta Hanks DO Vaginal bleeding (Primary Dx) Discharge Disposition: Home 05/30/2024 Travel from Last 3 Months Social History Tobacco Use Types Packs/Day Years Used Date Smoking Tobacco: Former Cigarettes Smokeless Tobacco: Never Tobacco Cessation:Counseling Given: Not Answered Alcohol Use Standard Drinks/Week Comments Yes 0 (1 standard drink = 0.6 oz pur e alcohol) rarely Childcare Answer Date Recorded Childcare Unknown 07/30/2018 Employment Answer Date Recorded Employment Unknown 07/30/2018 Hunger Screening Answer Date Recorded Within the past 12 months we worried whether our food would run out before we got money to buy more. Never True 11/04/2023 Within the past 12 months th e food we bought just didn't last and we didn't have money to get more. Never True 11/04/2023 Comments No Sex and Gender Information Value Date Recorded Sex Assigned at Not on file Legal Sex Female 12:04 PM EDT Gender Identity Not on file Sexual Orientation Not on file Last Filed Vital Signs Vital Sign Reading Time Taken Comments Blood Pressure 153/116 05/30/2024 9:46 PM EDT Pulse 78 05/30/2024 8:19 PM EDT Temperature 37.2 C (98.9 F) 05/30/2024 8:19 PM EDT Respiratory Rate 18 05/30/2024 8:19 PM EDT Oxygen Saturation 99% 05/30/2024 8:19 PM EDT Inhaled Oxygen Concentration - - Weight 93 kg (205 lb) 05/30/2024 8:19 PM EDT Height 160 cm (5' 3 ) 05/30/2024 8:19 PM EDT Body Mass Index 36.31 05/30/2024 8:19 PM EDT Plan of Treatment Health Maintenance Due Date Last Done Comments Depression Screening 2014 Adult BMI Follow Up Plan 02/07/2020 Influenza Vaccine 10/19/2024 DTaP,Tdap and Td Vaccines (7 - Tdap) 11/02/2024 11/02/2014, 10/09/2007, 09/27/2005, Additional history exists Adult BMI Screening 05/30/2025 05/30/2024 Tobacco Screening 05/30/2025 05/30/2024 Pap Smear 03/19/2026 03/19/2023 Medical Devices Not on file Procedures Procedure Name Priority Date/Time Associated Diagnosis Comments POCT , URINE (NUCG) Routine 05/30/2024 9:29 PM EDT POCT NURSING URINE MACROSCOPIC UA Routine 05/30/2024 9:27 PM EDT from Last 3 Months Results * POCT , urine (05/30/2024 9:29 PM EDT) Nursing urine Negative Negative^N egative 05/30/2024 9:31 PM EDT [facility] Urine / Unknown 05/30/2024 9 :29 PM EDT 05/30/2024 9:31 PM EDT us Ekta Hanks DO POINT OF CARE TEST ORDERABLE S Final Result [address] [place] [address] * (ABNORMAL) POCT Nursing Urine Macroscopic UA (05/30/2024 9:27 PM EDT) Specific gravity NISREEN 1.020 1.003 - 1.035 05/30/2024 9:25 PM EDT [facility] Leukocyte esterase NISREEN Negative Negative^ Negative 05/30/2024 9:25 PM EDT [facility] Nitrite NISREEN Negative Negative^ Negative 05/30/2024 9:25 PM EDT [facility] Ph 5.5 5.0 - 8.5 05/30/2024 9:25 PM EDT [facility] Protein NISREEN Negative Negative^ Negative mg/dL 05/30/2024 9:25 PM EDT [facility] Urine glucose NISREEN Negative Negative^ Negative mg/dL 05/30/2024 9:25 PM EDT [facility] Ketones NISREEN Negative Negative^ Negative mg/dL 05/30/2024 9:25 PM EDT [facility] Urobilinogen NISREEN 0.2 <1.1 eu/dL 05/30/2024 9:25 PM EDT [facility] Bilirubin NISREEN Negative Negative^ Negative 05/30/2024 9:25 PM EDT [facility] Hemoglobin NISREEN Small(A) Negative^ Negative 05/30/2024 9:25 PM EDT [facility] Urine / Unknown 05/30/2024 9 :27 PM EDT 05/30/2024 9:25 PM EDT us Ekta Haroon ArguelloLatonya DO POINT OF CARE TEST ORDERABLE S Final Result [facility] [address] [facility], [place] [address] from Last 3 Months Insurance [employer] Member Subscriber Plan / Payer (Ef fective 2020-Present) Name:LinSunshine Relation to Subscriber:Child Name:Brigido Roque Date of :1980 (Home) Address: [facility] [place] [address] Payer ID:Not on file Type:Not on file Address: [facility] [address] [id number] [employer] Care Teams Corset Maker Relationship Specialty Start Date End Date Leticia Young MD [address] [place] [id number] PCP - General Family Medicine 05/30/24
--- OUTSIDE RECORDS SUMMARY | 2024-08-19 12:20 | XMS_ITS | Encounter Summary ---
Author Organization [facility] Address [address] [facility] [place] [address] Care Team Providers Care Health Information Tech Name Role Phone Leticia Young MD Primary Care Provider [phone] Encounter Details Date Type Department Care Team (Late Contact Info) Description 08/19/2024 Bamboo flowsheet [facility] [address] [place] [address] [place] [id number] Social History Tobacco Use Types Packs/Day Years [...] on file documented as of this encounter Plan of Treatment Upcoming Encounters Date Type Department Care Team (Late Contact Info) Description 09/15/2024 10:50 AM EDT Office Visit [facility] [address] [place] [place] [address] Ramy Gar, [address] [place] [id number] documented as of this encounter Visit Diagnoses Not on filedocumented in this encounter Care Teams Health Information Tech Relationship Specialty Start Date End Date Leticia Young MD [address] [facility] [place] [phone] PCP - General Family Medicine 07/19/22 documented as of this encounter
--- OUTSIDE RECORDS SUMMARY | 2024-08-19 12:20 | XMS_ITS | Clinical Summary ---
Author Organization [facility] Address [address] [place] [address] Care Team Providers Care Orthopedic Podiatrist Name Role Phone Leticia Young MD Primary Care Provider [phone] Allergies Active Allergy Reactions Criticality Noted Date Comments Codeine Hives,Other,Rash Low 08/12/2018 Other Reaction(s): Hyperactivity Other Reaction(s): Unknown Medications amphetamine-dextr oamphetamine XR (Adderall XR) 25 MG 24 hr capsule 1 (one) time each day at the same time. Active famotidine (Pepcid) 20 MG tablet Take 20 mg by mouth at bedtime 02/24/19 24 Active SUMAtriptan (Imitrex) 100 MG tablet 05/09/19 24 Active topiramate (Topamax) 25 MG tablet 05/09/19 24 Active labetalol (Normodyne) 100 MG tabletIndications :Secondary hypertension Take 1 tablet (100 mg) by mouth in the morning and 1 tablet (100 mg) before bedtime. 60 tablet 11 07/02/19 24 Active medroxyPROGESTERo ne (Depo-Provera) 150 MG/ML injectionIndicati ons:Encounter for contraceptive management, unspecified INJECT 1 ML INTRAMUSCULAR EVERY 30 DAYS 1 mL 3 07/17/19 24 025 Discontin ued(Thera py completed ) Active Problems Problem Noted Date Diagnosed Date Migraine 07/02/2023 Adult attention deficit disorder 07/27/2022 Abdominal pain 07/27/2022 Gastroesophageal reflux disease 07/27/2022 Impacted cerumen 07/27/2022 Menorrhagia 07/27/2022 Kidney stone 07/27/2022 Mixed anxiety and depressive disorder 07/27/2022 Other specified re lated conditions, unspecified trimester ([facility]) 07/27/2022 Pelvic and perineal pain 07/27/2022 Syncope and collapse 07/27/2022 Vaginal discharge 07/27/2022 Encounter for biopsy 07/27/2022 Atypical chest pain 02/01/2022 Dizziness 02/01/2022 Overview (07/27/2022): Last Assessment & Plan: -she said this resolved with medication but it was stopped per her neurologist -follow up as scheduled with neurologist group -continue to monitor heart rate and blood pressure during events and daily CELAYA (dyspnea on exertion) 02/01/2022 Overview (07/27/2022): Last Assessment & Plan: -due to her age I suspect this is likely related to lack of endurance or exercise tolerane -we discussed lifestyle changes and adding an exercise regimen to her routie Palpitations 02/01/2022 Overview (07/27/2022): Last Assessment & Plan: -she states they happen frequently so I will order a holter monitor for now -she may need loop recorder Encounters Date Type Department Care Team Description 08/19/2024 11:20 AM EDT Office Visit [facility] [address] [place] [address] Ramy Gar DO Well woman exam with routine gynecological exam; Female infertility; Amenorrhea; PCOS (polycystic ovarian syndrome) 08/19/2024 Bamboo flowsheet [facility] [address] [place] [address] Ramy Gar DO 06/18/[address] [facility] [address] [place] [address] Charlotte Saravia MA from Last 3 Months Family History Medical History Relation Name Comments Diabetes Maternal Grandmother Hypertension Maternal Grandmother Depression Mother Hypertension Mother Migraines Mother Diabetes Paternal Grandmother Relation Name Status Comments Daughter Alive Maternal Grandmother Mother Paternal Grandmother Social History Tobacco Use Types Packs/Day Years Used Date Smoking Tobacco: Never Smokeless Tobacco: Never Tobacco Cessation:Counseling Given: Not Answered Alcohol Use Standard Drinks/Week Comments Never 0 [...] Mass Index 39.33 08/19/2024 11:36 AM EDT Plan of Treatment Upcoming Encounters Date Type Department Care Team (Late st Contact Info) Description 09/15/2024 10:50 AM EDT Office Visit [facility] [address] [place] [address] Ramy Gar, DO [address] [place] [address] Procedures Procedure Name Priority Date/Time Associated Diagnosis Comments POCT URINALYSIS DIPSTICK Routine 08/19/2024 11:49 AM EDT Well woman exam with routine gynecological exam POCT , URINE Routine 08/19/2024 11:49 AM EDT Female infertility Amenorrhea from Last 3 Months Results * POCT , urine manually resulted (08/19/2024 11:49 AM EDT) Preg Test, Ur Negative Negative Urine 08/19/2024 11:4 9 AM EDT Ramy Gar DO POINT OF CARE TEST ENTER/EDIT OR DERABLES Final Result * (ABNORMAL) POCT urinalysis dipstick manually resulted [...] Urine 08/19/2024 11:4 9 AM EDT Ramy Gar DO POINT OF CARE TEST ENTER/EDIT OR DERABLES Final Result from Last 3 Months Insurance [employer] Care Teams Orthopedic Podiatrist Relationship Specialty Start Date End Date Leticia Young MD [address] [place] [address] PCP - General Family Medicine 07/19/22
[2024-08-25 09:08] LABS: DHEA, Serum 333 ng/dL (31-701)
== END 2024-08-19 12:13 | disposition home or self-care (01) ==
PROVIDERS: PCP Family Medicine; Visit Provider Obstetrics & Gynecology
DX: Z01.419 Encounter for gynecological examination (general) (routine) without abnormal findings (principal); E28.2 Polycystic ovarian syndrome
CPT/HCPCS: 36415; 82626; 84146; 88175

== ENCOUNTER 2024-08-19 15:03 | Outpatient (REF) | payer OTHER, SELFPAY ==
--- OUTSIDE RECORDS SUMMARY | 2024-08-19 11:20 | XMS_ITS | Encounter Summary ---
Author Organization [facility] Address [address] [place] [address] Care Team Providers Care Burr Picker Name Role Phone Leticia Young MD Primary Care Provider [phone] Reason for Visit * Reason Comments Gynecologic Exam Pt present today for annual visit. Infertility Pt present today to discuss infertility issue. Patient states she has not had a period since May 2024 and has taken tests and all come back negative. Encounter Details Date Type Department Care Team (Late st Contact Info) Description 08/19/2024 11:20 AM EDT Office Visit [facility] [address] [place] [phone] Ramy Gar, DO [address] [place] [address] Well woman exam with routine gynecological exam; [...] EDT Office Visit [facility] [address] [phone] Ramy Gar, DO [address] [place] [address] Scheduled Orders Name Type Priority Associated Diagnoses [...] ovaries documented in this encounter Care Teams Burr Picker Relationship Specialty Start Date End Date Leticia Young MD [address] [place] [phone] PCP - General Family Medicine 07/19/22 documented as of this encounter
--- OUTSIDE RECORDS SUMMARY | 2024-08-19 15:06 | XMS_ITS | Encounter Summary ---
Author Organization [facility] Address [address] [facility] [place] [address] Care Team Providers Care Shoe Turner Name Role Phone Leticia Young MD Primary Care Provider [phone] Encounter Details Date Type Department Care Team (Late Contact Info) Description 08/19/2024 Bamboo flowsheet [facility] [address] [facility] [place] [address] [place] [phone] Social History Tobacco Use Types Packs/Day Years [...] 09/15/2024 10:50 AM EDT Office Visit [facility] [address] [facility] [place] [address] Ramy Gar, [address] [place] [phone] documented as of this encounter Visit Diagnoses Not on filedocumented in this encounter Care Teams Shoe Turner Relationship Specialty Start Date End Date Leticia Young MD [address] [facility] [place] [phone] PCP - General Family Medicine 07/19/22 documented as of this encounter
--- OUTSIDE RECORDS SUMMARY | 2024-08-19 15:06 | XMS_ITS | Clinical Summary ---
Author Organization [facility] Address [address] [place] [address] Care Team Providers Care Minor League Baseball Player Name Role Phone Leticia Young MD Primary Care Provider [phone] Allergies Active Allergy Reactions Criticality Noted Date [...] Other specified re lated conditions, unspecified trimester ([facility]) 07/27/2022 Pelvic and perineal pain 07/27/2022 Syncope [...] 08/19/2024 11:20 AM EDT Office Visit [facility] [address] [place] [address] Ramy Gar DO Well woman exam with routine gynecological exam; Female infertility; Amenorrhea; PCOS (polycystic ovarian syndrome) 08/19/2024 Bamboo flowsheet [facility] [address] [place] [address] Ramy Gar DO 06/18/20[address] [facility] [address] [place] [address] Charlotte Saravia MA from Last 3 [...] EDT Office Visit [facility] [address] [facility] [place] [address] Ramy Gar, DO [address] [place] [address] Procedures Procedure Name Priority Date/Time Associated Diagnosis [...] 3 Months Insurance [employer] Care Teams Minor League Baseball Player Relationship Specialty Start Date End Date Leticia Young MD [address] [place] [address] PCP - General Family Medicine 07/19/22
--- OUTSIDE RECORDS SUMMARY | 2024-08-19 15:07 | XMS_ITS | Clinical Summary ---
Author Organization [facility] Address [id number] [address] [place] [address] Care Team Providers Care Process Specialist Name Role Phone Leticia Young MD Primary Care Provider [phone] Allergies Active Allergy Reactions Criticality Noted Date [...] EDT - 05/30/2024 9:55 PM EDT Emergency [facility] - Emergency [address] [place] [address] Ekta Hanks DO Vaginal bleeding [...] Negative Negative^N egative 05/30/2024 9:31 PM EDT [facility] Urine / Unknown 05/30/2024 9 :29 PM EDT 05/30/2024 9:31 PM EDT us Ekta Hanks DO POINT OF CARE TEST ORDERABLE S Final Result [address] [place] [address] * (ABNORMAL) POCT Nursing Urine Macroscopic UA (05/30/2024 9:27 PM EDT) Specific gravity NISREEN 1.020 1.003 - 1.035 05/30/2024 9:25 PM EDT [facility] Leukocyte esterase NISREEN Negative Negative^ Negative 05/30/2024 9:25 PM EDT [facility] Nitrite NISREEN Negative Negative^ Negative 05/30/2024 9:25 PM EDT [facility] Ph 5.5 5.0 - 8.5 05/30/2024 9:25 PM EDT [facility] Protein NISREEN Negative Negative^ Negative mg/dL 05/30/2024 9:25 PM EDT [facility] Urine glucose NISREEN Negative Negative^ Negative mg/dL 05/30/2024 9:25 PM EDT [facility] Ketones NISREEN Negative Negative^ Negative mg/dL 05/30/2024 9:25 PM EDT [facility] Urobilinogen NISREEN 0.2 <1.1 eu/dL 05/30/2024 9:25 PM EDT [facility] Bilirubin NISREEN Negative Negative^ Negative 05/30/2024 9:25 PM EDT [facility] Hemoglobin NISREEN Small(A) Negative^ Negative 05/30/2024 9:25 PM EDT [facility] Urine / Unknown 05/30/2024 9 :27 PM EDT 05/30/2024 9:25 PM EDT us Ekta Haroon ArguelloLatonya DO POINT OF CARE TEST ORDERABLE S Final Result [facility] [address] [facility] [place] [address] from Last 3 Months Insurance [employer] Member Subscriber Plan / Payer (Ef fective 2020-Present) Name:LinSunshine Relation to Subscriber:Child Name:Brigido Roque Date of :1980 (Home) Address: [facility] [place] [address] Payer ID:Not on file Type:Not on file Address: [facility] [address] [id number] [employer] MEDICAID Care Teams Process Specialist Relationship Specialty Start Date End Date Leticia Young MD [address] [place] [id number] PCP - General Family Medicine 05/30/24
--- OUTSIDE RECORDS SUMMARY | 2024-08-19 19:34 | XMS_ITS | CCD ---
Author Organization [facility] CliniSyfl Care Team Providers Care Intelligence Clerk Name Role Phone DenaAdin toneyhanie Unavailable Gaye Dill Unavailable GAYE DILL Primary Care Unavailable PREET, DR SIMRAN Alexander Consulting Unavailabl e PREET, DR SIMRAN Alexander Attending Unavailabl e PREET, DR SIMRAN Alexander Admitting Unavailabl e GAYE DILL Primary Care Unavailable JOSE ., DR GAIL Mcwilliams Attending Unavailable JOSE ., DR GAIL Mcwilliams Admitting Unavailable AMILCAR .RL Consulting Unavailable GAYE DILL Admitting Unavailable GAYE DILL Primary Care Unavailable GAYE DILL Consulting Unavailable GAYE DILL Attending Unavailable GAYE DILL Primary Care Physician Lexis Moura Unavailable Unavailable Gaye Dill MD Primary Care Provider RAMY GAR Attending Unavailable RAMY GAR Attending Unavailable VELMA CHAND Attending Unavailable COOK, Viral P Attending Unavailable COOK, Viral P Attending Unavailable COOK, Viral P Attending Unavailable COOK, Viral P Attending Unavailable COOK, Viral P Admitting Unavailable COOK, Viral P Attending Unavailable COOK, Viral P Referring Unavailable COOK, Viral P Admitting Unavailable COOK, Viral P Attending Unavailable COOK, Viral P Referring Unavailable Hajdankush, Ladariusit H Attending Unavailable COOK, Viral P Admitting Unavailable COOK, Viral P Attending Unavailable COOK, Viral P Referring Unavailable COOK, Viral P Attending Unavailable GAYE DILL E Primary Care Unavailable LUCA SERNA Attending Unavailable COOK, VIRAL P Referring Unavailable GAYE DILL Primary Care Unavailable GAYE DILL Primary Care Unavailable VENKAT MCCRAY Attending Unavailable Gaye Dill MD Primary Care Provider [phone] Allergies Allergy Classification Reported Allergen(s) Allergy Type Date of Onset Reaction(s) Facility (20 sources) Codeine; Translations: [codeine] Drug Allergy 9 Unknown (qualifier value), Hives, Other, Eruption of skin (disorder), Hyperactive behavior (finding), Rash [facility] (1 source) Codeine Drug Allergy 5 [facility] (1 source) patient allergy list reviewed by nurse or physicia Propensity to adverse reactions 8 Comment:Done uiu Other (1 source) Allergies Reconciled Propensity to adverse reactions Unknown uiu Other Medications Current Medications Medication Drug Class(es) [...] for 2 day(s), 5 tab(s), Refill(s) 0, [id number], 163.5, cm, 06/13/23 10:01:00 EDT, Height/Length Dosing, 87.1, kg, 06/13/23 10:01:00 EDT, Weight Dosing Start Date: 06/13/23 Stop Date: 06/15/23 Status: Ordered Start: 04-18-2023 End: 04-20-2023 acetaminophen-hydrocodone 32 5 mg-5 mg oral tablet 1 tab(s), Oral, q4hr Pain for 2 day(s), 7 tab(s), Refill(s) 0, N20.0, [id number], 165, cm, 04/01/23 6:28:00 EST, Height/Length Dosing, 94.7, kg, 04/01/23 6:28:00 EST, Weight Dosing Start Date: 04/18/23 Stop Date: 3/2/24 Status: Ordered Amphetamine / Dextroamphetamine (5 sources) [...] day(s), # 10 cap(s), Refills(s) 0, Pharmacy: [facility]/pharmacy #[id number], 165, cm, 04/01/23 6:28:00 EST, Height/Length Dosing, 94.7, kg, 04/01/23 6:28:00 EST, Weight Dosing Start Date: 04/18/23 Stop Date: 04/23/23 Status: Ordered ciprofloxacin 500 mg oral tablet (2 sources) Quinolone Antimicrobial Star t: 05-20 take 1 tablet by mouth twice daily Cipro 500 mg Tab 500 mg = 1 tab(s), Oral, BID, # 10 tab(s), Refills(s) 0, Pharmacy: [facility]/pharmacy #[id number], 163.5, cm, 06/13/23 10:01:00 EDT, Height/Length Dosing, 87.1, kg, 06/13/23 10:01:00 EDT, Weight Dosing Start Date: 06/13/23 Status: Ordered labetalol hydrochloride 100 mg oral tablet (1 source) beta-Adrenergic Steven Star t: 06-18 take 1 tablet by mouth in the morning labetalol (Normodyne) 100 MG tablet Indications: Secondary hypertension Take 1 tablet (100 mg) by mouth in the morning and 1 tablet (100 mg) before bedtime. 60 tablet 11 07/02/2023 Active 1 ml medroxyPROGESTERone acetate 150 mg/ml injection (3 sources) Progestin Star t: 06-19 inject 1 mL by intramuscular injection every 30 days medroxyPROGESTERone (Depo-Provera) 150 MG/ML injection Indications: Encounter for contraceptive management, unspecified INJECT 1 ML INTRAMUSCULAR EVERY 30 DAYS 1 mL 3 07/17/2023 Active Start: 03-07-2023 medroxyPROGEST ERone (Depo-Provera) 150 MG/ML suspension prefilled syringe injection syringe Indications: Encounter for surveillance of injectable contraceptive 1 mL Intramuscular 0.9 mL 1 03/07/2023 Active medroxyPROGESTERone 150 mg/mL IM Susp (7 sources) Start: 03-29-2023 inject 150 mg by intramuscular injection every three months medroxyPROGESTERone 150 mg/mL IM Susp 150 mg = 1 mL, IntraMuscular, q3mo, Refills(s) 0, control/menstrual regulation Start Date: 03/29/23 Status: Ordered oxybutynin chloride 5 mg oral tablet (5 sources) Cholinergic Muscarinic Antagonist Start: 04-18-2023 End: 06-17-2023 take 1 tablet by mouth twice daily oxybutynin 5 mg Tab 5 mg = 1 tab(s), Oral, BID, X 30 day(s), # 60 tab(s), Refills(s) 1, Pharmacy: [facility]/pharmacy #[id number], 165, cm, 04/01/23 6:28:00 EST, Height/Length Dosing, 94.7, kg, 04/01/23 6:28:00 EST, Weight Dosing Start Date: 04/18/23 Stop Date: 06/17/23 Status: Ordered sertraline 50 mg oral tablet (1 source) Serotonin Reuptake Inhibitor Start: 03-06-2024 take 1 tablet by mouth once daily Sertraline (Zoloft) 50 mg tablet Active 50 MG PO Daily March 06, 2024 12:00am sulfamethoxazole 800 mg / trimethoprim 160 mg oral tablet (1 source) Dihydrofolate Reductase Inhibitor Antibacterial, Sulfonamide Antimicrobial Start: 05-16-2023 End: 05-26-2023 Bactrim D.S. 800 mg-160 mg Tab 1 tab(s), Oral, BID for 10 day(s), 20 tab(s), Refill(s) 0, [facility]/pharmacy #[id number], 165, cm, 04/01/23 6:28:00 EST, Height/Length Dosing, 94.7, kg, 04/01/23 6:28:00 EST, Weight Dosing Start Date: 05/16/23 Stop Date: 05/26/23 Status: Ordered SUMAtriptan 100 mg oral tablet (12 sources) Serotonin-1b and Serotonin-1d Receptor Agonist Start: 05-09-2023 take 1 tablet by mouth once daily [...] Daily, # 30 cap(s), Refills(s) 0, Pharmacy: [facility]/pharmacy #[id number], 165, cm, 04/01/23 6:28:00 EST, Height/Length [...] Apr, Active topiramate 25 mg oral tablet (3 sources) Start: 05-09-2023 take 1 tablet by mouth twice daily [...] daily October 31, 2023 December 13, 2023 7:27am administer doses at least 4-6 hours [...] Active Start: 04-10-2022 take 1 capsule by [facility] every twenty-four hours Adderall XR 25 MG [...] tablet (20 sources) Histamine-2 Receptor Antagonist Start: 01-29-2023 End: 12-13-2023 take 1 tablet by mouth once daily at bedtime Famotidine 20 mg tablet Discontinued 20 MG PO Daily at bedtime April 26, 2023 4:51pm December 13, 2023 7:28am ibuprofen 800 mg oral tablet (16 sources) [...] Start: 12-07-2022 take 1 capsule by mo [facility] once daily Omeprazole 20 MG 1 capsule 30 minutes before morning meal Orally Once a day for 30 day(s) Nov, Active Problems Active Problems Problem Classification Problem Date Documented Date Episodic/Chronic Anxiety disorders (20 sources) Mixed anxiety and depressive disorder; Translations: [Anxiety disorder, unspecified] Onset: 07-27-2022 Resolved: 11-17-2020 07-27-2022 Chronic Attention-deficit, conduct, and disruptive behavior disorders (13 sources) Attention deficit hyperactivity disorder; Translations: [Attention-deficit hyperactivity disorder, unspecified type] Onset: 02-13-2013 03-29-2023 Chronic Blindness and vision defects (1 source) Visual impairment; Translations: [Unspecified visual loss] Onset: 12-26-2016 Chronic Blindness and vision defects (1 source) Unspecified visual disturbance Episodic Chronic obstructive pulmonary disease and bronchiectasis [...] hypertension] Chronic Genitourinary symptoms and ill-defined conditions (5 sources) Dysuria; Translations: [Dysuria] Onset: 05-20-2023 Resolved: 11-17-2020 Episodic Headache; including migraine (12 sources) Migraine with aura; Translations: [Migraine with aura, not intractable, without status migrainosus] Onset: 07-02-2023 Resolved: 11-17-2020 05-20-2023 Chronic Headache; including migraine [...] current use of drug therapy; Translations: [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] Episodic Other circulatory disease [...] female genital disorders (1 source) Abnormal uterine and vaginal bleeding, unspecified; Translations: [Abnormal uterine and vaginal bleeding, unspecified] Onset: 05-30-2024 Chronic Other female genital disorders (2 sources) Vaginal bleeding Onset: 05-30-2024 Chronic Other female genital disorders (1 source) Noninflammatory [...] Translations: [Encounter for test, result negative] Episodic Residual codes; unclassified (1 source) Gestation [...] Translations: [Unspecified abdominal pain] Onset: 02-28-2017 Episodic Administrative/social admission (4 sources) Stress; Translations: [Other psychological or physical stress, not elsewhere classified] Onset: 02-28-2017 07-27-2022 Episodic Calculus of urinary tract (20 sources) Kidney stone; Translations: [Calculus of kidney] Onset: 07-27-2022 Episodic Cardiac dysrhythmias (3 sources) Palpitations; Translations: [Palpitations] Onset: 02-01-2022 07-27-2022 Episodic Conditions associated with dizziness or vertigo (4 sources) Dizziness and giddiness; Translations: [Dizziness and [...] unspecified] Resolved: 08-20-2018 Episodic Nonspecific chest pain (3 sources) Atypical chest pain; Translations: [Other chest pain] Onset: 02-01-2022 07-27-2022 Episodic Other complications of (1 source) Complication occurring during ; Translations: [Other specified related conditions, second trimester] Resolved: 10-01-2018 Episodic Other complications of (3 sources) Disorder of ; Translations: [Other specified related conditions, unspecified trimester] Onset: 07-27-2022 07-27-2022 Episodic Other connective tissue disease (1 source) Pain in forearm; Translations: [Pain in joint, forearm] Onset: 08-23-2017 Episodic Other ear and sense organ disorders (4 sources) Impacted cerumen; Translations: [Impacted cerumen, bilateral] Onset: 07-27-2022 07-27-2022 Episodic Other female genital disorders (1 source) Abnormal uterine bleeding; Translations: [Abnormal uterine and vaginal bleeding, unspecified] Resolved: 11-17-2020 Chronic Other female genital disorders (3 sources) Vaginal discharge; Translations: [Other specified noninflammatory disorders of vagina] Onset: 07-27-2022 07-27-2022 Episodic Other lower respiratory disease (3 sources) Dyspnea on exertion; Translations: [Other forms of dyspnea] Onset: 02-01-2022 07-27-2022 Episodic Other non-traumatic joint disorders (1 source) Arthralgia of the ankle and/or foot; Translations: [Pain in unspecified ankle and joints of unspecified foot] Onset: 07-21-2013 Episodic Other skin disorders (1 source) Acne vulgaris; Translations: [Acne vulgaris] Resolved: 11-17-2020 Episodic Other upper respiratory disease (1 source) Pain in throat Onset: 11-04-2023 Episodic Other upper respiratory infections (1 source) Chronic sinusitis; Translations: [Chronic sinusitis, unspecified] Resolved: 11-17-2020 Chronic Other upper respiratory infections (8 sources) Acute pharyngitis, unspecified; Translations: [Acute pharyngitis] Onset: 02-13-2013 Resolved: 02-09-2021 Episodic Residual codes; unclassified (1 source) Insomnia; Translations: [...] condition classified elsewhere] Onset: 09-19-2017 Episodic Syncope (14 sources) Syncope and collapse; Translations: [Syncope and collapse] Onset: 07-27-2022 07-27-2022 Episodic Unclassified (1 source) Homeless family Z59.00 Unclassified (1 source) Vaccine product containing only acellular Bordetella pertussis and Clostridium tetani and Corynebacterium diphtheriae antigens (medicinal product); Translations: [Whqcidlvah-qvdefhx-z ertussis, combined [DTP] [DtaP]] Onset: 11-02-2014 Unclassified (1 source) Other specified indication for care or intervention related to labor and delivery, unspecified as to episode of care; Translations: [Other specified indication for care or intervention related to labor and delivery, unspecified as to episode of care] Results Test Name Value Interpretation Reference Range Facility HCG ( test) Ql (U)o n 05-30-2024 Beta HCG ( test) Ql (U) Negative Normal NEG [facility] Comment on above: Performed By: #### 2 106-3 #### [facility] ([id number]) [address] [place] [address]86 URN MACROSCOPIC NURon 2024 BILIRUBIN NISREEN Negative Normal [facility] Comment on above: Performed By: #### N UM #### [facility] ([id number]) [address] [place] [address] 26633 BLOOD/HGB NISREEN Small Abnormal NEG [facility] Comment on above: Performed By: #### N UM #### [facility] ([id number]) [address] [place] [address] 97612 GLUCOSE NISREEN Negative Normal [facility] Comment on above: Performed By: #### N UM #### [facility] ([id number]) [address] [place] [address] 05234 KETONES NISREEN Negative Normal [facility] Comment on above: Performed By: #### N UM #### [facility] ([id number]) [address] [place] [address] 70714 LEUKOCYTE ESTERASE NISREEN Negative Normal NEG [facility] Comment on above: Performed By: #### N UM #### [facility] ([id number]) [address] [place] [address] 71964 NITRITE NISREEN Negative Normal [facility] Comment on above: Performed By: #### N UM #### [facility] ([id number]) [address] [place] [address] 07578 PH NISREEN 5.5 Normal 5.0-8.5 [facility] Comment on above: Performed By: #### N UM #### [facility] ([id number]) [address] [place] [address] 77347 PROTEIN NISREEN Negative Normal NEG [facility] Comment on above: Performed By: #### N UM #### [facility] ([id number]) [address] [place] [address] 08175 SPECIFIC GRAVITY NISREEN 1.020 Normal 1.003-1.035 [facility] Comment on above: Performed By: #### N UM #### [facility] ([id number]) [address] [place] [address] 74986 UROBILINOGEN NISREEN 0.2 eu/dL Normal <1.1 [facility] Comment on above: Performed By: #### N UM #### [facility] ([id number]) [address] [place] [address] Urology Office/Clinic Noteon 11-20-2023 Urology Office/Clinic Note [...] with voice recognition artificial intelligence software, specifically [employer], [employer] and or Result[employer]. Substitutions may have occurred due to the inherent limitations of voice recognition and artificial intelligence software. 1. Kidney stone (N20.0: Calculus of kidney) Pt was seen at [facility] on 01/22/23 due to left sided abdominal [...] right interpolar renal calculus. Pt presented to [facility] 05/20/23 with hematuria. S/p cysto, L [...] is good. Follow-up With When Contact Information Viral CLAROS MD, URL [address] [place] [address]- Additional Instructions: 1 year w/ KUB Patient [...] deficit disorder (more content not included)... Normal [facility] Comment on above: Result Comment: Elec tronically Signed By: Viral CLAROS MD\.br\Date and Time Signed: 11/20/23 15:40 EDT\.br\Electronically Co-Signed By: Judy Dailybr\Date and Time Co-Signed: 10/02/24 15:37 EDT XR ABDOMEN AP 1 VWon [...] Hurt MD on 11/19/2023 7:43 PM Normal [facility] RAPID STREP SCR NURSINGon S. pyogenes Ag EIA Ql (Throat) Positive Abnormal NEG [facility] Comment on above: Performed By: #### 6 [id number] #### [facility] ([id number]) [address] [place] [address], [place] [address] SARS/FLU A+B/RSV by NAAT/Mol ecularon 11-04-2023 SARS/FLU [...] operators who are performing tests using either [employer] or [employer] systems and is limited to laboratories that [...] specimen repeat. Fact Sheet for Healthcare Providers: https://www.fda.gov/la tressa/973200/download Fact Sheet for Patients: https://www.fda.gov/la tressa/465328/download Normal [facility] Comment on above: Performed By: #### C OVFLR #### [facility] ([id number]) [address] [place] [address] Coding Summary.on 08-09-2023 Coding Summary. KRWABfvs35QSb9hRw+PG hl YWQ+VQ2ZACWzC98ssJYopS 2yP5BFPYzUZrqeOYJSIFvK SkRyyzRoBA6dzSBzGGMh IC8+LC2fYNRhKobygCTpv5 Q3rZZ1I40qfp1jKNfacCQ1 ZFLbWvOlhkbto3ikwIg7IL cuNmluOyBt DYAcuY68LQG8sE59Go67vY LmwIZpw0iswQm2SxXaRSLr NBI3bPrnOTxyw1YnVAAaH1 2qtSWsi8G0 BFVpyAevaXNqCnVypHZ2vM 7jHNbphqaip6uuaeszPqz2 br30eSByv6A3kGV2Z5Hmwe H1GKAueBGg TdcthCFPiP2zplhcd7mrys xvGkRsHNMmZTp3TQv6FJVi wWzvEsAgVR86YTO9QLFnzr GlU6KlITSa aHiwNaY2q2D1Wd5QH4JKCq taY5DXSSPHPSroaTB+PC90 yc94R9EySgorVyk1NVUcND X0yQS9tQ7v KYOtCFgwn2U5uHD2V9Kxas Cwbi6oz3qxGCTrJZbeO34f xRTkp9E8QUJejFJ7OAMxwR osPdYrvD39 Oyc+LCPgxCfms2YuSznfr8 qrc2qitEh5FaeiUVMtvdSq dFtvMFN0y2AsTu4gICFptD S1mDK0zT0a QtWcHmV3BFnrV857BaHmiK DjLhpnJ50eW8ZvjPN+PHRy Cqa3CJBngFshMA4pD8ZaMX RpbmctbGVm fAibCN6uNIEfyzuzZMAraV 1cAXRmA3n6KoRnPpC9DMoc G8OxQEKjjdlrPh51vE8cIv MoUqF6PBov E1ZkanS9UQBboHWmCAoqQL Z6A62og9L1WKIdRDClNOO1 kSH8sJ3igHgvzapzxVPpcV sgdmVydGlj KTwmCRpgP708TBQuaJssQr NvZGluZyBEYXRlOiAgMDYv MjEvMjAyNDwvdGQ+PHRkIH U2iVfiOHUb qONqIMdySk0btLfuoObtWK 9oCETehrqqIZBwsU1iPKHc eVLpaFgbCN5hHNUxkexpe9 22VfZeHFU3 RVSvvAYlO6IwyK8fJmRsAQ ReCPGcY4TzpMNjUBrjL492 GQrzPzZ6GOLwjrSoG6CqUZ FsaWduOiB0 a0T8Pt8Hn7ZsvrnlZ7LyfF IyKxRkRqyxHZv6O0LfRzex dHI+MG59ZAHlWJ49XQq8XV E8aFndAWyf EVFvV6FagF9gYfWyEYGwCL RkOyc+PHRhYmxlIHdpZHRo YIbnQKHeCaPseHtoLP4mLj 9yZGVyLWNv jIkztDLfZjFsw6bxTAEaJR tvGS3yiYgjR4UgxAF5CWMz d5r2Fn23F86xG4YjeQZ+PG DffQI3nNK0 hH7aLuBkKtF2WBsqZ364Ab GaxOSoNriqa1vgn9lzyNb6 IxH5GUFcruXomGpuZYQ3n7 IsWa49N32e IHdpZHRoPSIxNSUiIHZhbG xtqm4tlQ5tAf8+PGNvbCB3 zAB5qA9cGqHiWlW0KFesK2 49InRvcCIv Miwfv8agf5boyBh9WjDzJG WcxcPxhXtsXYV0v3BpBq08 P6CeuUfzw3IgXzn8or47wB Raz8K2aBJ5 E8YbXOVbendimJFbpKniKM 6rTDZvmjelZNKfcV6qVHCf P5w5LgPaDcG2SPefW6Gjuf H0JENhjWYs JSPbdCNAmN7abjpzh7nffs gbUlJhKIQrLBg3FWc5GTTz sUetXuZcRTJ5BwG6QQV3kV RqnM7hoUpf evfjpJ3wFei+MTK9gWYwjG MWKY3jPoxcwER+PHRkIHN0 dWxxCZyzGQBqwL3cNMXyW2 p2AqQcNoA8 LBxoO9QbwtQ6TFKthMQaHS XzxBKBoK8ogvspo4yqqpla JmRvEKAiRGt9WCo7OFEyqG duOiBsZWZ0 WlT1WUS6sUZnrX1zsDvbjr ydhP5rDoo+QmlydGggRGF0 UWh0G9EpNbn0WPNyoVorDA 0ncGFkZGlu Wm1qzUnfrObhQA0uTZWgyl utj804BuIvu6naBKQbpQCg JKwrKYJ1W68rw4W3BNTfHM NaBCH2oWP0 nU9mxPqkieoauAYqzNtvlm YrgEsxVManWFajC786LWKy dWjjXdByMOp4O6UaRat5IJ FzdLkkOB2d fNLsVFtoSg4aeRrvqWemNY 9rBXJfbkury605VgBnh7ta GUIcyBXpJFxjDNK9G25fj8 M0XTXgCYYq NSP9uLH2cH5ydRjnaqpndP VmdDsgdmVydGljYWwtYWxp P962XTVzyItmFpElhIo0S2 TiVxa0CGBu gHfxHV3ggENkIDymKa7piI fzvVptGS5gGIXbtydzg077 SzPle5ijSLZhvXDpLLhsGW C9B94te2F7 ZOVvQGQrOFE1fNH0nK4nfE lnbjogbGVmdDsgdmVydGlj YZxcIJhuB435XAVbsBqkTf BhdGllbnQg AYzoQNp3R6PjMgubiNT+PC 04PVNuTW24iTRgcUAvb8gd dBb8CrRzKDNnZKL8wKwoAS pti1LoQPTv K61tuBWps6Y5MYMpmGgxsZ EhRsIpcHH9aJ1bRQmswitp e6kthatvLqwvw3akng64dT 86T31vIYtc ZHRoPSIzMCUiIHZhbGlnbj 1arP8uKz0+TPDwlRY0aPR2 kT7sTUSeQdI6LAbuH985Tv RvcCIvPjxj x7pds1yknSp8UnS0YKIyun XidMjbFLJ9x2KdTo23R86t IHdpZHRoPSIyMCUiIHZhbG jakb2snQ9i Ii8+UBImtUQ3gPR5dJ4xMh LrJjF7QOzwE653SkMloTHp HfrjV44mI2SnbUJ+PHRyPj h7IIXazMgr VV2tcHDyVMmdRd3uMZO8Fg RuOwImWJvpA2VqDQDztoge nxoebDS9ZPAkKXCviM66Ym 9udDogMTBw dZJMzX4zsavkr3pzpxsqOv QlIJGkXVt9PRg4VXXgnYad XhHsBEG4ZxP9KQK1uTTltK 1hbGlnbjog uP9zH2BqJNYypujfYs10rX 4kNnNyKhC6MBcnBat+TEFX G90PYJXBCBgNTXrfJIpvmB Q+PHRkIHN0 hNstPEsaUDXgbS7bAKRoH9 w0ZlFpYkK0VLbtK4NjOGHg ovegXr94tF1xLpCvQyT7BU isI1IobfP2 BJRflUCpOBanERG8S96db6 T0INMfSLTdWYF9oGS0xR3c bGlnbjogbGVmdDsgdmVydG ljYWwtYWxp H248FIFioLqyGsBuTsUiFn QnKTX1P1TtSzl7XRPhnWqe JE0vhTWhFUqqZd8zcKbutQ ikLC6lJXFu ykuiNCKdaN8lNKCalXAvlG afET9iFIZghbxsx675TiZb TPG6JTDqqYUeL0BniV6dUo AjMDAwMDAw Z2JuzEWnLYmqI189DDluTc S9BGHoylZgC0IhFYOsqCzr NpF5w7U3Aa3kQTISORJlmt wvdGQ+PHRk HDH5zEpcRIjaVCZrxE8iFQ NnP6y1TuIwTyK3CUloD5Bk EYThlbpcKh57zJ6zDiViEv X0NVzhS9Pu ybY9ECAsaIKzNJyfJCV7R4 9kj9V8GDYbEBBjOYG2uCW8 kZ1ncMwholtizZJnjIobzs VydGljYWwt BXwhA226OFBdaQwvOjFslS FsZTwvdGQ+AUZaFUF0zRjh LXdhNBLgsE3vPKHiS3n0Qd FaSfX9WOyg W2GuOAGjhatxUl09mX0vSg RlRlA9ZRwdF2QnqoF7DFXr cFHfKEtuBVR5Z84fr4V5DX MwMDAwMDA7 qYD7mV1dqHkxwrfrdHEapL tvieDaxTwzTZdwYNdvC048 DKElwEaxFo63oKVdbJdsst M3F4TcLcmh dHI+IH22FSTqKZ80mPWznE Lgo2qprZh0NkLrJSYnOOM0 mKseMSert6BeMMJfS25wmO Uvm8Q3WTCl wYkueEQjGnXgtEU2vF0jLI wjwfoxc6figablQpsfn9ux ho56kB18V70sCXpyCXScSE IzMCUiIHZh nFypsa0rcA8aNz4+PGNvbC J3kCB3hK3gUmXvGmQ9GBxd K675PwDatQFkBdeux6xtc5 jbjDd1NlGp YPKmmgYkqClvRVX4h1AmVt 99J28pLJzlYAAzDSPsEBUq ASDnaOwyrv5rmL0yTd9+PC 1ib8dyie49 fX31uZU+JUIpUTC9nGtqFH dxQQTkmI3bKZsfVuT4NPWz MpWpxH87gFZbZPsbUb8pkX paiZffCS0u CSTiinmyx062MsLuy0hlJP UnuLZvXRbuTJI9X93ub2L9 LFVuQAGuOJN9uHO2yG9qcL lnbjogbGVm dDsgdmVydGljYWwtYWxpZ2 52UUKpaSngFzKuwEIwA0sx hlMAMA7vUzgkgMI+PHRkIH V4nPhcNGfj CSFdvD1yZPSzG8x1GrMfGh T1VUsiP6LixkN6MQDmfVAe VHCiwOUAoE9aiztgw1rtju ogIzAwMDAw SGv5ILs2GDIkhZlvDxBdSZ D9UeA7UGK6qGLvdF8kyWiq cgkbvC2iQkm+RklOOjwvdG Q+PHRkIHN0 fSfnCRrxCAFgfK5sZKLaP3 q9GeJoAeV1QDqsG2AmugV9 DWEeuWIaLQObbFWYtX2kti nit5fpjvvj HdMsOWVpRFw2KQk2XUPhnZ asRqEbXTE8WlK1GMM9fWMz gI7cnKcesllbsJ0rWvt+TV JOOjwvdGQ+ RFMrUQT7kXqoRKueMPRjvB 7iVUGxV4o4OcYgUjP2ZClp N9LrbzC9PBVhnPNvNDLjdB GRuZ7dnndo v6socqtfQvVaBGGeGTc1CF e2GLGjdAacPdGiJDT7JxK2 FVZ2xXDtoB4ahIatpyhgdU 9wOyc+UGF5 GTV1ED18HE07V8HrTpkokP FibGU+PHRhYmxlIHdpZHRo JPauGMXjNsCcyEiuTU1aFm 9yZGVyLWNv bGxhcHNlOiBjb (more content not included)... [facility] Physician Orderon 08-08-2023 Physician Order [id number] .00TIFF [facility] Formson 08-06-2023 Forms [id number]#1.0 0TIFF Normal [facility] Physician Orderon 07-23-2023 Physician Order [id number]#1. 00TIFF Normal [facility] Calculus Analysison 06-23-19 24 Calcium oxalate dihydrate Infrared spectroscopy (Stone) [Mass fraction] 20 % Invalid Interpretation Code [facility] Comment on above: Performed By: #### 1 [id number] ####[address] [address] Calcium oxalate monohydrate (Stone) [Mass fraction] 70 % Invalid Interpretation Code [facility] Comment on above: Performed By: #### 1 [id number] ####[facility] [address] [place] [id number] Calculus analysis [Interp] Comment Invalid Interpretation Code [facility] Comment on above: Result Comment: Calc ium phosphate (hydroxyl form) includes hydroxyapatite, amorphous calcium phosphate, and whitlockite. Hydroxyapatite is the most common of the calcium phosphate salts found in human kidney stones. Performed By: #### 1 [id number] ####[facility] [address] [place] [address] Color (Stone) Brown Invalid Interpretation Code [facility] Comment on above: Performed By: #### 1 [id number] ####[facility] [address] [place] [address] Composition Comment Invalid Interpretation Code [facility] Comment on above: Result Comment: Perc entage (Represents the % composition) Performed By: #### 1 [id number] ####[facility] [address] [place] [address] Disclaimer: Comment Invalid Interpretation Code [facility] Comment on above: Result Comment: This test was developed and its performance characteristics determined by [employer]. It has not been cleared or approved by the Food and Drug Administration. Performed at: [address] [id number] PhD Norman Rodrigez Performed By: #### 1 [id number] ####[address] [address] Hydroxyapatite: 10 % Invalid Interpretation Code [facility] Comment on above: Performed By: #### 1 [id number] ####[facility] [address] [place] [address] Laboratory comment Yunier (Report) Comment Invalid Interpretation Code [facility] Comment on above: Result Comment: Selene cuevas questions regarding Calculi Analysis contact [facility] at: [phone]. Performed By: #### 1 [id number] ####[facility] [address] [place] [address] Please Note: Comment Invalid Interpretation Code [facility] Comment on above: Result Comment: Calc marylin report will follow via computer, mail or product management manager delivery. Performed By: #### 1 [id number] ####[facility] [address] [place] [address] Size (Stone) [Entitic vol] 3x3 Invalid Interpretation Code [facility] Comment on above: Result Comment: Mult iple pieces received. Dimensions of the largest piece reported. Performed By: #### 1 [id number] ####[facility] [address] [place] [address] Specimen source subject Nom Kidney Invalid Interpretation Code [facility] Comment on above: Performed By: #### 1 [id number] ####[facility] [address] [place] [address] Stone Photo Comment Invalid Interpretation Code [facility] Comment on above: Result Comment: Phot ograph will follow under a separate cover Performed By: #### 1 [id number] ####[facility] [address] [place] [address] Weight (Stone) 75 mg Invalid Interpretation Code [facility] Comment on above: Performed By: #### 1 [id number] ####[facility] [address] [place] [address] Progress Note-Physicianon Progress Note-Physician Patient: SUNSHINE RYDER Age: 23 years Sex: Female : 2000 Associated Diagnoses: None Author: GhafMD de los santos Ahmad F Postoperative Information Postoperative disposition: Postoperative disposition: To PACU. Optimetrix number: Optimetrix number [id number]. Anesthetic utilized: General. Health Status Allergies: Allergic [...] when meets criteria ( To home ). [facility] Comment on above: Result Comment: Elec tronically Signed By: MD Cline Ahmad F\.br\Date and Time Signed: 06/19/23 08:21 EDT Progress [...] BID, # 10 tab(s), Refills(s) 0, Pharmacy: [facility]/pharmacy #[id number], 163.5, cm, 06/13/23 10:01:00 EDT, Height/Length Dosing, 87.1, kg, 06/13/23 10:01:00 EDT, Weight Dosing Flomax 0.4 mg Cap: 0.4 mg = 1 cap(s), Oral, Daily, # 30 cap(s), Refills(s) 0, Pharmacy: [facility]/pharmacy #[id number], 165, cm, 04/01/23 6:28:00 EST, Height/Length [...] list: All Problems Hypertension / SNOMED CT 0954935248 / Confirmed ADHD / SNOMED CT 4192998127 / Confirmed Kidney stone / SNOMED CT 463498550 / Confirmed Flank pain / SNOMED CT 513439607 / Confirmed Abdominal pain / SNOMED CT 00954777 / Confirmed Smoker / SNOMED CT 834479862 / Confirmed Added secondary to documentation in Social History. Resolved: Kidney stone / SNOMED CT 664338854 Resolved: Migraine / SNOMED CT 72996141 Resolved: Acid reflux / SNOMED CT 5094334378 Resolved: Hypertension / SNOMED CT 32892695 Resolved: ADHD - Attention deficit disorder with hyperactivity / SNOMED CT 6508726158 Resolved: Stent placement / SNOMED CT 950903134 stent in ureter Histories Past Medical History: Resolved Kidney stone (334789220): Resolved. Migraine (07669011): Resolved. Acid reflux (6750472969): Resolved. Hypertension (66059432): Resolved. ADHD - Attention deficit disorder with hyperactivity (0762060962): Resolved. Stent placement (954979480): Resolved. Comments: 05/20/2023 EDT 11:51 EDT - Yaneli DOUGLAS, Radha Patiño stent in ureter Family History: Kidney stone Mother Hypertension Mother Diabetes mellitus type 2 Grandparent Alcoholism Father Migraine Mother Stroke Grandparent Procedure history: Cystoscopy and uretoscopy (9958039888) on 06/13/2023 at 23 Years. Comments: 06/13/2023 14:34 EDT - Audrey DOUGLAS, Jill Jerez Left stent removal, stone extraction, stone basket and homium laser cystoscopy, ESWL of left kidneym with stent placement (76960075) on 04/18/2023 at 23 Years. Tonsillectomy (733190245). wisdom extraction (52452615). Lithotripsy (546099063). Social History Social & Psychosocial Habits Alcohol [...] results Radiology results ECG interpretation Condition Plan [place] [employer] Anesthesiologists (ASA) physical status classification: Class II. Anesthetic Preoperative Plan Anesthesia: General. . Anesthetic plan, risks, benefits, and alternatives discussed with the patient and/or family. Risks discussed: nausea, vomiting, headache, sore throat, dental injury, serious complications. Patient verbalized understanding. Communication: face to face with patient 5 minutes. [facility] Comment on above: Result Comment: Elec tronically Signed By: MD Marlyn, Hiwot Valadez\.eduardo\Date and Time Signed: 06/19/23 08:20 EDT Postoperative Documentson Postoperative Documents [id number]. 00TIFF [facility] IntraOperative Documentson 0 06-17-2023 IntraOperative Documents [id number]#1.0 0TIFF Normal [facility] Consent for Anesthesiaon Consent for Anesthesia [id number]. 00TIFF Normal [facility] Discharge Instructionson Discharge Instructions [id number]#1. 00TIFF Normal [facility] IntraOperative Documentson 0 06-14-2023 IntraOperative Documents [id number]#1. 00TIFF [facility] Main OR Intraoperative Recor don 06-14-2023 Main OR Intraoperative Record IntraOp Document Type FT Summary Primary Physician: Viral CLAROS MD Finalized Date/Time: 06/14/23 13:16:52 Pt. Name: SUNSHINE RYDER /Sex: 2000 Female Med Rec #: [id number] Physician: Viral CLAROS MD Financial #: [id number] Pt. Type: A Room/Bed: [place] [address] Admit/Disch: 06/13/23 09:25:53 - 06/13/23 14:20:00 Institution: Case Times FT Entry 1 Patient Times In Room 06/13/23 11:37:00 Out Room 06/13/23 12:16:00 Procedure Times Start 06/13/23 11:45:00 Stop 06/13/23 12:08:00 Anesthesia Times Start 06/13/23 11:37:00 Stop 06/13/23 12:16:00 Last Modified By: Loi DOUGLAS, Glenny Bowling 06/13/23 12:16:05 General Comments: 06/14/23 Chart opened [...] Attendee Loi DOUGLAS, Jude Faith Role Performed Automatic Folder Seamer - Primary Scrub - Relief Time In [...] Robert Blackwell CRNA, Given Participants SHAWN COOK, Viral Catalan, Miguel BRYANTN, Cristine Avendaño, Loi DOUGLAS, Maggie Gomez Kendall [...] Surgeon SHAWN COOK, Viral CLAROS MD, Viral Singh 06/13/23 11:45:00 06/13/23 11:45:00 Stop 06/13/23 12:08:00 [...] or mechanical sources (more content not included)... [facility] Pre-Op Checkliston 4 Pre-Op Checklist [id number]#1. 00TIFF [facility] XR Abdomen 1 Viewon 06-14-19 24 XR Abdomen 1 View Exam Date/Time: [...] mGy = 1.80 DAP = 139.30 Normal [facility] Consent for Procedure/Surger yon 06-13-2023 Consent for Procedure/Surgery [id number] 0TIFF [facility] Consent for Treatmenton 05-20 Consent for Treatment [id number]#1.0 0TIFF [facility] Discharge Instructionson Discharge Instructions SUNSHINE [...] Temperature above 101.5 degrees Pharmacy Information Other: [facility] Discharge Instructions Discharge Instructions New Follow Up [...] prescription for antibiotics to your pharmacy. Where: [facility] [email or web address] [address] [address]- Business (1) Medications What How Much When Instructions Next Dose New acetaminophen-hydrocod one (acetaminophen-hydroco done 325 mg-5 mg oral tablet) 1 Tablets By Mouth Every 4 hours as needed for Pain Duration: 2 Days Pickup at [facility]/pharmacy #3478 New ciprofloxacin (Cipro 500 mg Tab) 1 Tablets By Mouth 2 times a day Pickup at [facility]/pharmacy #3478 Unchanged acetaminophen (Tylenol 325 mg Tab) [...] Mouth 2 times a day Pharmacy Information [facility]/pharmacy #[id number]: [address], [place] [phone] Allergies codeine (Hives, Rash, Hyperactivity) Education Materials [facility] [place], [place] Dr. Viral Ramsay Post-operative Instructions for [...] other reasons. If it is to remain retirement, however, changes of the stent are required [...] normal activities, (more content not included)... Normal [facility] Comment on above: Result Comment: Elec tronically Signed By: Audrey DOUGLAS, Jill Jerez\.br\Date and Time Signed: 06/13/23 13:56 EDT H&P Updateon 06-13-2023 H&P Update [id number]#1.0 0TIFF Normal [facility] Inpatient Patient Summaryon 06-13-2023 Inpatient Patient Summary [address] [address] [facility] Clinical Discharge Instructions PERSON INFORMATION Name: SUNSHINE RYDER PHYSICIANS Admitting Physician: Viral CLAROS MD Attending Physician: Viral CLAROS MD PCP: GAYE DILL MD Discharge Diagnosis: Comment: PATIENT EDUCATION INFORMATION Instructions: Upfl-Xnia-lo Utereroscopy,Lithotrip sy, Stone Extraction, Stent Placement (Custom) Medication Leaflets: Follow up: With: Address: When: Viral CLAROS [address] [place] [address], [address], [address] [address] Business (1) Comments: As we discussed, my [...] your pharmacy. MEDICATION LIST New Medications [id number], [address], [place] [phone], [phone] acetaminophen-hydrocod one (acetaminophen-hydroco done 325 mg-5 mg [...] Mouth 2 times a day. Comment: Normal [facility] Main OR PACU I Recordon 05-20 Main OR PACU I Record PACU Phase I Docum ent Type FT Summary Primary Physician: Viral CLAROS MD Finalized Date/Time: 06/13/23 12:55:58 Pt. Name: BRITNISUNSHINE.O.B./Sex: 2000 Female Med Rec #: [id number] Physician: Viral CLAROS MD Financial #: [id number] Pt. Type: A Room/Bed: [facility]/ Admit/Disch: 06/13/23 09:25:53 - Institution: Case Times [...] By: Merary Ludwig RN 06/13/23 12:55 Normal [facility] Main OR PACU II Recordon Main OR PACU II Record PACU Phase II Document Type FT Summary Primary Physician: Viral CLAROS MD Finalized Date/Time: 06/13/23 14:32:23 Pt. Name: RYDERSUNSHINE./Sex: 2000 Female Med Rec #: [id number] Physician: Viral CLAROS MD Financial #: [id number] Pt. Type: A Room/Bed: Admit/Disch: 06/13/23 09:25:53 [...] By: Jill Ventura RN 06/13/23 14:32 Normal [facility] Main OR Preoperative Recordo n 06-13-2023 Main OR Preoperative Record PreOp Document Type FT Summary Primary Physician: Viral CLAROS MD Finalized Date/Time: 06/13/23 11:44:36 Pt. Name: SUNSHINE RYDER D.O.B./Sex: 2000 Female Med Rec #: [id number] Physician: Viral CLAROS MD Financial #: [id number] Pt. Type: A Room/Bed: [place] [address] Admit/Disch: 06/13/23 09:25:53 - Institution: Case Times [...] By: Glenny Monsivais RN 06/13/23 11:44 Normal [facility] Monitor Recordon 06-13-2023 Monitor Record [id number]#1. 00TIFF Normal [facility] Monitor Record [id number]. 00TIFF Normal [facility] Operative Reporton Operative Report Patient: SUNSHINE RYDER [...] placed per urethra and a well-lubricated 22 [place] is urethroscope with 30 degree lens then [...] for evaluation. She is transferred to [facility] and then back to PACU in satisfactory [...] ml. Complications: None. Anesthesia type: General. Normal [facility] Comment on above: Result Comment: Elec tronically Signed By: Viral CLAROS MD\.br\Date and Time Signed: 06/13/23 12:25 EDT Outpatient Surgery Discharge Instructionon 06-13-2023 Outpatient Surgery Discharge Instruction [place] [id number] Patient Discharge Instructions PERSON INFORMATION Name: SUNSHINE [...] Date Follow up: With: Address: When: Viral BAILEY, [address], [facility] [address] [place] [address] Business (1) Comments: As we discussed, my [...] antibiotics to your pharmacy. Pharmacy Information: Other: [facility] You may receive a survey from Kimberlee Hopper asking you to rate your care experience. Your feedback is important and will help us understand what we do well and how we can improve the quality of care we provide to you, your loved ones and our community. It?s an honor to serve you. Thank you for choosing [facility] HERE ARE THE MEDICATION CHANGES THAT OCCURRED DURING YOUR HOSPITAL STAY New Medications [facility]/pharmacy #3471, [address] [facility] [place] [phone], [phone] acetaminophen-hydrocod one (acetaminophen-hydroco done 325 mg-5 mg [...] day. PATIENT EDUCATION INFORMATION Instructions: [facility] [place], [place] Dr. Viral Ramsay Post-operative Instructions for [...] stent will (more content not included)... Normal [facility] Patient Education - Texton 0 06-13-2023 Patient Education - Text [facility] [place], [place] Dr. Viral Ramsay Post-operative Instructions for [...] other reasons. If it is to remain retirement, however, changes of the stent are required [...] arrange for your post-operative appointment (with XRAY) [phone] Normal [facility] SEROLOGYOrdered By: Pati Tuttle on 06-13-2023 HCG.beta subunit (U) [Moles/Vol] Negative Normal [facility] Man Sero U BetaHcg Qualon 06-13-2023 HCG.beta subunit (U) [Moles/Vol] Negative Normal [facility] Comment on above: Performed By: #### 2 [id number] ####[facility] [address] [place] [address] XR Abdomen 1 Viewon 06-13-19 24 XR [...] mGy = 0 DAP = 0 Normal [facility] Ambulatory Visit Summaryon 0 06-05-2023 Ambulatory Visit Summary BRITNI SUNSHINE Avendaño :2000 Visit Date:06/05/2023 Ambulatory Visit Instructions Your Diagnosis Kidney stone Your Care Team Attending Physician - Viral [...] Follow-Up Appointments 2023 11:15 AM EDT Where: [facility] You Need to Schedule the Following Appointments Follow Up with SHAWN COOK, Viral Catalan, URL When: Where: [address] [place] [address] [place] [address]- Medications What How Much When Instructions Unchanged [...] including vitamins, herbs, eye drops, creams, and zdtt-vbp-aaxhkrh medicines. ? Any problems you or family [...] fatty foods (more content not included)... Normal [facility] Patient Educationon 06-05-19 24 Patient Education Nephrology Lithotripsy Lithotripsy is a [...] including vitamins, herbs, eye drops, creams, and qpet-lby-nelmela medicines. ? Any problems you or family [...] tells you to take them. ? Taking fscv-qcs-qxmnkxj medicines, vitamins, herbs, and supplements. Tests You [...] safe. Summary (more content not included)... Normal [facility] Urology Office/Clinic Noteon 06-05-2023 Urology [...] with voice recognition artificial intelligence software, specifically [employer], [employer] and or Resultly. Substitutions may have occurred due to the inherent limitations of voice recognition and artificial intelligence software. 1. Kidney stone (N20.0: Calculus of kidney) Pt was seen at [facility] on 01/22/23 due to left sided abdominal [...] right interpolar renal calculus. Pt presented to [facility] 05/20/23 with hematuria. Reports gross hematuria [...] Information SHAWN COOK, Viral Catalan, URL [address] [place] [address]- Additional Instructions: Proceed with stone procedure [...] times per day, (more content not included)... [facility] Comment on above: Result Comment: Elec tronically Signed By: Viral CLAROS MD\.br\Date and Time Signed: 06/05/23 08:50 EDT\.br\Electronically Co-Signed By: Judy Daily\.br\Date and Time Co-Signed: 06/05/23 08:47 EDT Office Visiton 05-28-2023 Follow-up visit [id number] Ana Luisa Ryder 2000 F Date Provider Department Center 05/28/2023 3848-VELMA CHAND Family History Problem Relation Age of Onset Hypertension Mother Heart attack Maternal Grandmother Heart attack Maternal Grandfather Stroke Maternal Grandfather Family Status - Relation Status Age at Mother Maternal Grandmother Maternal Grandfather Level of Service:02118 CO OFFICE/OUTPATIENT ESTABLISHED MOD MDM 30 MIN Reason for Visit and Comments: Follow-up [872687] - Last saw Camilo in 2021 [facility] Orders Onlyon 05-28-2023 Orders Only [id number] Ana Luisa Ryder liliam D 2000 F Date Provider Department Center 05/28/2023 [facility] Family History Problem Relation Age of Onset Hypertension Mother Heart attack Maternal Grandmother Heart attack Maternal Grandfather Stroke Maternal Grandfather Family Status - Relation Status Age at Mother Maternal Grandmother Maternal Grandfather Normal [facility] C Urineon 05-22-2023 Bacteria identified Cx Nom [...] Locations R1: This test was performed at: [facility], [address] [place] [address], [facility] , , [facility] Comment on above: Performed By: #### 2 [id number], [id number], [id number] #### [facility] [address] [place] [address] ED Note-Physicianon 05-21-19 ED Note-Physician [id number] 0TIFF [facility] ED Note-Physician [id number]#1. 00TIFF [facility] BMPon 05-20-2023 Anion gap [Moles/Vol] 13 mmol/L Normal 6-16 [facility] Comment on above: Performed By: #### 2 775115, 28284139, 23003086, 6556172 ####[facility] [address] [place] [facility] [place] [address] Calcium [Mass/Vol] 9.2 mg/dL Normal 8.9-11.1 [facility] Comment on above: Performed By: #### 2 990679, 68426347, 96412638, 2284437 ####[facility] [address] [place] [address] Chloride [Moles/Vol] 109 mmol/L Normal 101-111 [facility] Comment on above: Performed By: #### 2 113741, 52188803, 27121889, 8502444 ####[facility] [address] [place] [address] CO2 [Moles/Vol] 19 mmol/L Low 21-31 [facility] Comment on above: Performed By: #### 2 242786, 88340417, 98407314, 1122567 ####[facility] [address] [place] [address] Creatinine [Mass/Vol] 0.9 mg/dL Normal 0.5-1.3 [facility] Comment on above: Performed By: #### 2 960683, 27375136, 77126462, 0770739 ####[facility] [address] [place] [facility] [place] [address] Glucose [Mass/Vol] 114 mg/dL Normal 55-199 [facility] Comment on above: Performed By: #### 2 088481, 41391755, 77138111, 7133016 ####[facility] [address] [place] [address] Potassium [Moles/Vol] 4.0 mmol/L Normal 3.5-5.3 [facility] Comment on above: Performed By: #### 2 764997, 45503564, 14134536, 4927848 ####[facility] [address] [facility] [place] [facility] [place] [address] Sodium [Moles/Vol] 137 mmol/L Normal 135-145 [facility] Comment on above: Performed By: #### 2 652687, 69592742, 41438658, 1481904 ####[facility] [address] [place] [address] Urea nitrogen [Mass/Vol] 16 mg/dL Normal 5-21 [facility] Comment on above: Performed By: #### 2 433202, 42667281, 94327800, 0929811 ####[address] [address] Urea nitrogen/Creatinine [Mass ratio] 18 No Units Normal 10-20 [facility] Comment on above: Performed By: #### 2 626491, 15188678, 99776862, 5874484 ####[address] [address] CBC w/ Auto Diffon 4 Basophils/100 WBC (Bld) 1.0 % Normal 0.0-2.0 [facility] Comment on above: Performed By: #### 2 349900, 07117549, 41784959, 9676760 ####[address] [address] Basophils/Leukocytes Auto (Bld) [Pure # fraction] 0.1 E9/L Normal 0.0-0.2 [facility] Comment on above: Performed By: #### 2 899873, 67257258, 12069198, 3552789 ####[address] [address] Eosinophils (Bld) [#/Vol] 0.3 E9/L Normal 0.0-0.5 [facility] Comment on above: Performed By: #### 2 996598, 13878392, 24498682, 6584648 ####[address] [address] Eosinophils/100 WBC (Bld) 2.2 % Normal 0.0-8.0 [facility] Comment on above: Performed By: #### 2 947182, 27944760, 35528869, 0680449 ####[address] [address] Erythrocyte distribution width (RBC) [Ratio] 13.1 % Normal 10.9-14.2 [facility] Comment on above: Performed By: #### 2 007059, 12710646, 22410084, 9780350 ####[address] [address] Hematocrit (Bld) [Volume fraction] 41.5 % Normal 34.0-46.0 [facility] Comment on above: Performed By: #### 2 134447, 89244563, 66859798, 9776186 ####[address] [address] Hemoglobin (Bld) [Mass/Vol] 14.0 g/dL Normal 12.0-16.0 [facility] Comment on above: Performed By: #### 2 672519, 92017721, 90921418, 4842269 ####[address] [address] Lymphocytes (Bld) [#/Vol] 2.4 E9/L Normal 1.0-4.0 [facility] Comment on above: Performed By: #### 2 476669, 88237422, 02262272, 8655898 ####[address] [address] Lymphocytes/100 WBC (Bld) 20.0 % Normal 14.0-50.0 [facility] Comment on above: Performed By: #### 2 275823, 27301750, 78645467, 2770381 ####[address] [address] MCH (RBC) [Entitic mass] 30.2 pg Normal 27.0-34.0 [facility] Comment on above: Performed By: #### 2 926596, 22813350, 04728743, 3513118 ####[address] [address] MCHC (RBC) [Mass/Vol] 33.9 g/dL Normal 31.4-36.0 [facility] Comment on above: Performed By: #### 2 458551, 98412663, 26214487, 2749940 ####[facility] [address] [place] [address] MCV (RBC) [Entitic vol] 89.1 fL Normal 80.0-100.0 [facility] Comment on above: Performed By: #### 2 769513, 05097683, 45266892, 8322977 ####[address] [address] Monocytes (Bld) [#/Vol] 0.8 E9/L Normal 0.2-1.0 [facility] Comment on above: Performed By: #### 2 871641, 77276764, 04563084, 1394831 ####[address] [address] Neutrophils (Bld) [#/Vol] 8.3 E9/L High 2.0-7.5 [facility] Comment on above: Performed By: #### 2 998387, 13365782, 80631574, 0309552 ####[address] [address] Neutrophils/100 WBC (Bld) 70.2 % Normal 36.0-75.0 [facility] Comment on above: Performed By: #### 2 479810, 98901155, 57091824, 2956265 ####[address] [address] Platelet mean volume (Bld) [Entitic vol] 8.8 fL Normal 6.4-10.8 [facility] Comment on above: Performed By: #### 2 467365, 35902938, 42981945, 1024747 ####[address] [address] Platelets (Bld) [#/Vol] 259.0 E9/L Normal 150.0-500.0 [facility] Comment on above: Performed By: #### 2 006377, 31223205, 84142820, 9992835 ####[facility] [address] [place] [address] RBC (Bld) [#/Vol] 4.7 E12/L Normal 4.3-5.9 [facility] Comment on above: Performed By: #### 2 740678, 28161156, 95427858, 4003322 ####[facility] [address] [place] [address] WBC corrected for nucl RBC Auto (Bld) [#/Vol] 11.7 E9/L High 4.0-11.0 [facility] Comment on above: Performed By: #### 2 611339, 27347398, 33330191, 9603096 ####[facility] [address] [place] [address] CHEMISTRYOrdered By: [employer] on 05-20-2023 Anion gap [Moles/Vol] 13 mmol/L [...] 33.6 s Normal 25.1 - 36.5 second(s) [facility] Comment on above: Interpretive Data: Alayna malhotra 15 days - 4 weeks 1 - 5 months 6 - 11 months 1 - 5 years 6 - 10 years 11 - 17 years PTT Mean: 35.4 (27.6-45.6) Mean: 33.5 (24.8-40.7) Mean: 32.4 (25.1-40.7) Mean: 31.6 (24.0-39.2) Mean: 31.6 (26.9-38.7) Mean: 31.0 (24.6-38.4) Pediatric Reference ranges were obtained from a study by carmela Medina prepared from 1437 samples obtained at 7 different centers using the same coagulation reagent and instrumentation as [facility]. Currently there are no coagulation studies available worldwide for children to 14 days, and no normal ranges. Heparin therapeutic range (represented by Anti-Factor Xa activity of 0.2 - 0.4 U/mL) corresponds to PTT of 56.6 - 109.0 sec. INR Coag (PPP) [Relative time] 1.08 {INR} Invalid Interpretation Code [facility] Comment on above: Interpretive Data: I NR results are specifically intended to assess patients stabilized on long-term Anticoagulation therapy suggested INR s Less Intensive Anticoagulation 2.0 3.0 Conventional Range 3.0 4.5 PT Coag (PPP) [Time] 12.1 s Normal 9.4 - 1 2.5 second(s) [facility] Auto Coag Comment on above: Interpretive Data: 1 5 days - 4 weeks 1 - 5 months 6 -11 months 1 5 years 6 10 years 11 -17 years Mean: 11.2 (9.5 12.6) Mean: 11.0 (9.7 12.8) Mean: 11.0 (9.8 13.0) Mean: 11.3 (9.9 13.4) Mean: 11.7 (10.0 14.6) Mean: 11.8 (10.0 - 14.1) Pediatric Reference ranges were obtained from a study by carmela Medina prepared from 1437 samples obtained at 7 different centers using the same coagulation reagent and instrumentation as [facility]. Currently there are no coagulation studies available worldwide for children to 14 days, and no normal ranges. Consent for Treatmenton Consent for Treatment [id number]#1.0 0TIFF Normal [facility] Discharge Instructionson Discharge Instructions [id number]. 00TIFF Normal [facility] ED Clinical Summaryon 2023 ED Clinical Summary [address] [address] ED Clinical Summary Person Information Name: SUNSHINE RYDER Cookie/[facility] Age: 23 Years : 2000 Sex: Female Language: Vincentian PCP: GAYE DILL MD Marital Status: Single [...] 05/20/2023 14:38:45 05/20/2023 14:38:45 05/20/2023 14:38:45 ADDRESS: [facility] [address] [facility] [phone] PHYS DOC NOTES: MEDICAL INFORMATION: Prescriptions Given: [...] Follow up: With: Address: When: Viral CLAROS [address] [place] [address], [address], [place] [phone] [facility] (1Conjecta In 3 days 05/23/2023 Comments: Call Dr for diagnosis based follow up. Dr. Claros's office is going to call. Call the office if they do not call you in the next couple days. Continue taking Bactrim as prescribed. Return to the emergency room if your pain gets worse, fever or any new symptoms. With: Address: When: GAYE DILL [address] [place] [address] Business (1) In 3 days DIAGNOSIS: 1:Flank pain; 2:Hematuria Normal [facility] ED Note-Physicianon 05-20-19 ED Note-Physician Basic Information Time Seen: Raf AdlerLawson 05/20/2023 11:48 Chief Complaint pt presents w/ [...] vomiting. She states she was seen at [facility] on Saturday and Saturday. She states she [...] and Complexity of Problems Differential Diagnosis: [] [facility] Data External documents reviewed: ER visit document from [facility] My EKG interpretation: [] My [...] the stent. The patient was seen at [facility] ER on Saturday and Saturday. Records from [...] SHAWN In 3 days 05/23/[address] [phone] (more content not included)... Normal [facility] Comment on above: Result Comment: Elec tronically [...] by your health care provider. ? Take pdmr-ojm-hnbuslo and prescription medicines only as told by [...] provider. Document Revised: 04/17/2021 Document Reviewed: 04/17/2021 [employer] Patient Education ? 2022 [employer]. Urology Hematuria, Adult Hematuria is blood in [...] these instructions at home: Medicines ? Take etbp-zkd-ybgnxuy and prescription medicines only as told by [...] the departmen (more content not included)... Normal [facility] ED Patient Summaryon 024 ED Patient Summary [address] [address] Patient Discharge Instructions Person Information Name: SUNSHINE RYDER Age: 23 Years Arrival Date: 05/20/2023 11:32:16 Discharge Diagnosis: 1:Flank pain; 2:Hematuria Primary Care Physician: GAYE DILL MD Provider Information Primary Provider: Lawson Carbone M.D. Advanced Food Service Substitute:None The exam and treatment you received in the Emergency Department were for an urgent problem and are not intended as complete care. It is important that you follow up with a doctor, nurse practitioner, or physician?s bilingual medical assistant for ongoing care. If your symptoms become worse or you do not improve as expected and you are unable to reach your usual health care provider, you should return to the Emergency Department. We are available 24 hours a day. SUNSHINE RYDER has been given the following list of patient education materials, prescriptions and follow-up instructions: Follow-up Instructions: With: Address: When: Viral CLRAOS [address] [place] [address], [facility] [address], [place] [phone] Business (1) In 3 days 05/23/2023 Comments: Call Dr for diagnosis based follow up. Dr. Claros's office is going to call. Call the office if they do not call you in the next couple days. Continue taking Bactrim as prescribed. Return to the emergency room if your pain gets worse, fever or any new symptoms. With: Address: When: GAYE DILL [address] [place], [place] [phone] Business (1) In 3 days In the [...] opioids can be used to help relieve gkakxwvz-bt-bypeor pain and are often prescribed following a [...] drug take-ba (more content not included)... Normal [facility] HEMATOLOGYOrdered By: SYSTEM SYSTEM on 05-20-2023 Basophils/100 [...] Remisol Heme Outside Recordson 05-20-2023 Outside Records [id number]#1. 00TIFF Normal [facility] PT & PTTon 05-20-2023 aPTT Coag (PPP) [Time] 33.6 second(s) Normal 25.1-36.5 [facility] Comment on above: Result Comment: Para meter [...] the same coagulation reagent and instrumentation as [facility]. Currently there are no coagulation studies available worldwide for children to 14 days, and no normal ranges. Heparin therapeutic range (represented by Anti-Factor Xa activity of 0.2 - 0.4 U/mL) corresponds to PTT of 56.6 - 109.0 sec. Performed By: #### 2 894248, [id number], [id number], 5392643 ####[facility] [address] [place] [address] INR Coag (PPP) [Relative time] 1.08 {INR} Invalid Interpretation Code [facility] Comment on above: Result Comment: INR results are specifically intended to assess patients stabilized on long-term Anticoagulation therapy suggested INR?s ?Less Intensive Anticoagulation? 2.0 ? 3.0 Conventional Range 3.0 ? 4.5 Performed By: #### 2 301440, [id number], 99372886, 1159945 ####[facility] [address] [place] [address] PT Coag (PPP) [Time] 12.1 second(s) Normal 9.4-12.5 [facility] Comment on above: Result Comment: 15 d [...] the same coagulation reagent and instrumentation as [facility]. Currently there are no coagulation studies available worldwide for children to 14 days, and no normal ranges. Performed By: #### 2 172300, 17039051, 52963574, 3483940 ####[facility] [address] [place] [address] SEROLOGYOrdered By: Mike Herron on 05-20-2023 HCG.beta subunit (U) [Moles/Vol] Negative Normal [facility] Man Sero U BetaHcg Qualon 05-20-2023 HCG.beta subunit (U) [Moles/Vol] Negative Normal [facility] Comment on above: Performed By: #### 2 4227700, [id number], 3018649 #### [facility] [address] [place] [address] UA with Cult Rflxon 05-20-19 24 Color (U) Light[place] Abnormal Yellow [facility] Comment on above: Result Comment: Micr oscopic readings are only performed on those samples that meet specific criteria set forth by [facility]. Performed By: #### 2 3519133, [id number], 0846321 #### [facility] [address] [place] [address] Glucose (U) [Mass/Vol] Negative Normal Negative [facility] Comment on above: Performed By: #### 2 6106318, [id number], 4227090 #### [facility] [address] [place] [address] Ketones Ql (U) Negative Normal Negative [facility] Comment on above: Performed By: #### 2 5888336, [id number], 8451884 #### [facility] [address] [place] [address] UA Blood 3+ mg/dL Abnormal Negative [facility] Comment on above: Performed By: #### 2 8794632, [id number], 2939865 #### [facility] [address] [place] [address] UA Bacteria Trace Normal Trace [facility] Comment on above: Performed By: #### 2 9682235, [id number], 5052015 #### [facility] [address] [place] [address] UA Clarity Turbid Abnormal Clear [facility] Comment on above: Performed By: #### 2 9468079, [id number], 3880598 #### [facility] [address] [place] [address] UA Leuk Est 250 Mitchell/uL Abnormal Negative [facility] Comment on above: Performed By: #### 2 9026303, [id number], 9825483 #### [facility] [address] [place] [address] UA Mucous 1+ CD:[id number] Abnormal Negative [facility] Comment on above: Performed By: #### 2 0612273, [id number], 6803526 #### [facility] [address] [place] [address] UA Nitrite Negative Normal Negative [facility] Comment on above: Performed By: #### 2 8269687, [id number], 2914527 #### [facility] [address] [place] [address] UA pH 6.0 Invalid Interpretation Code 5.0-9.0 [facility] Comment on above: Performed By: #### 2 3875069, [id number], 7543351 #### [facility] [address] [place] [address] UA Protein 1+ mg/dL Abnormal Negative [facility] Comment on above: Performed By: #### 2 4873839, [id number], 8606940 #### [facility] [address] [place] [address] UA RBC >75 Abnormal 0-3 [facility] Comment on above: Performed By: #### 2 3038405, [id number], 2398173 #### [facility] [address] [place] [address] UA Spec Grav 1.015 Invalid Interpretation Code 1.005-1.030 [facility] Comment on above: Performed By: #### 2 5142222, [id number], 9294720 #### [facility] [address] [place] [address] UA Squam Epithelial 0-2 Normal 0-2 [facility] Comment on above: Performed By: #### 2 8095350, [id number], 5990272 #### [facility] [address] [place] [address] UA Urobilinogen Negative Normal Negative [facility] Comment on above: Performed By: #### 2 7172835, [id number], 5274554 #### [facility] [address] [place] [address] UA WBC 6-15 Abnormal 0-5 [facility] Comment on above: Performed By: #### 2 1606322, [id number], 6940793 #### [facility] [address] [place] [address] Urobilinogen (U) [Mass/Vol] Negative Normal Negative [facility] Comment on above: Performed By: #### 2 3940294, [id number], 9520269 #### [facility] [address] [place] [address] UA Spec Desc Clean Catch Normal [facility] Comment on above: Performed By: #### 2 0063096, [id number], 3329673 #### [facility] [address] [place] [address] [place] [address] URINALYSISOrdered By: SYSTEM SYSTEM on 05-20-2023 Color (U) Light[place] 1 *ABN* (05/20/23 11:54 AM) Invalid Interpretation Code Yellow [facility] UA Auto SS Comment on above: Interpretive Data: M icroscopic readings are only performed on those samples that meet specific criteria set forth by [facility]. Glucose (U) [Mass/Vol] Negative Normal Negativemg/ [...] Desc Clean Catch (05/20/23 11:54 AM) Normal [facility] UA Auto SS US Renalon 05-20-2023 US [...] MD Transcribed by: WILMER Technologist: MARY [facility] XR Abdomen 1 Viewon 05-20-19 XR Abdomen [...] mGy = na DAP = na Normal [facility] eGFRon 05-20-2023 eGFR 93 mL/min/1.73 m2 Normal >=59 [facility] Comment on above: Order Comment: Order added by Discern Expert. Performed By: #### 2 675252, 07908207, 08563736, 2748557 ####[facility] [address] [place] [address] Provider Letteron 05-16-2023 Provider Letter [id number] May 16, 2023 SUNSHINE RYDER [address] [place] [phone] : 2000 SUNSHINE RYDER was evaluated at [facility] 05/16/2023 16:33:47 Patient may work as scheduled with the following restrictions: Restrictions: No heavy lifting over 10lbs, allow pt to have a 15-minute break every 2 hours Provider Signature HAWA Hernandez Nurse Practitioner [facility] [address] [place] [address] Normal [facility] RAD - MISCon 05-13-2023 RAD - MISC [id number]#1.0 0TIFF Normal [facility] RAD - MISCon 04-29-2023 RAD - MISC [id number] 30 [id number]#1.0 0TIFF Normal [facility] IntraOperative Documentson 0 04-26-2023 IntraOperative Documents [id number]#1. 00TIFF Normal [facility] Main OR Intraoperative Recor don 04-23-2023 Main OR Intraoperative Record IntraOp Document Type FT Summary Primary Physician: Viral CLAROS MD Finalized Date/Time: 04/23/23 09:41:09 Pt. Name: SUNSHINE RYDER Jarocho Lawson./Sex: 2000 Female Med Rec #: [id number] Physician: Viral CLAROS MD Financial #: [id number] Pt. 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 [facility] Consent for Anesthesiaon Consent for Anesthesia [id number]#1.0 0TIFF [facility] Discharge Instructionson Discharge Instructions [id number]#1.0 0TIFF [facility] IntraOperative Documentson 0 04-19-2023 IntraOperative Documents [id number] 0TIFF [facility] IntraOperative Documents [id number]#1.0 0TIFF [facility] IntraOperative Documents [id number]#1.0 0TIFF [facility] Pre-Op Checkliston Pre-Op Checklist [id number]#1.0 0TIFF [facility] Consent for Procedure/Surger yon 04-18-2023 Consent for Procedure/Surgery [id number]#1.0 0TIFF [facility] Consent for Treatmenton 03-22 Consent for Treatment [id number]#1.0 0TIFF [facility] Discharge Instructionson Discharge Instructions SUNSHINE [...] fluids to keep the urine clear. Where: [facility] [email or web address] [address] [place] [phone] Business (1) Medications What How Much When Instructions Next Dose New acetaminophen-hydrocod one (acetaminophen-hydroco done 325 mg-5 mg oral tablet) 1 Tablets By Mouth Every 4 hours as needed for Pain Duration: 2 Days N20.0 Pickup at [facility]/pharmacy #3471 New cephalexin (cephalexin 500 mg Cap) 1 Capsules By Mouth Every 12 hours Duration: 5 Days Pickup at [facility]/pharmacy #3471 New oxybutynin (oxybutynin 5 mg Tab) 1 Tablets By Mouth 2 times a day Duration: 30 Days Refills: 1 Pickup at [facility]/pharmacy #3471 Unchanged acetaminophen (Tylenol 325 mg Tab) [...] Tablets By Mouth Every day Pharmacy Information [facility]/pharmacy #[id number]: [address], [place] [phone] Test Results No qualifying data available. Allergies [...] instructions at (more content not included)... Normal [facility] Comment on above: Result Comment: Elec tronically Signed By: Carlos DOUGLAS, Mindi Coats\.br\Date and Time Signed: 04/18/23 10:52 EST H&P Updateon 04-18-2023 H&P Update [id number]#1.0 0TIFF Normal [facility] Inpatient Patient Summaryon 04-18-2023 Inpatient Patient Summary [address] [address] [facility] Clinical Discharge Instructions PERSON INFORMATION Name: SUNSHINE RYDER [facility]#:[id number] PHYSICIANS Admitting Physician: Viral CLAROS MD Attending Physician: Viral CLAROS MD PCP: GAYE DILL MD Discharge Diagnosis: Comment: PATIENT EDUCATION INFORMATION Instructions: Lithotripsy, Care After Medication Leaflets: Follow up: With: Address: When: Viral CLAROS [address], [address], [facility] [address] [place] [address] Business (1) Comments: Please call my office [...] the urine clear. MEDICATION LIST New Medications [facility]/pharmacy #[id number], [address], [place] [phone], [phone] acetaminophen-hydrocod one (acetaminophen-hydroco done 325 mg-5 mg [...] Tablets By Mouth every day. Comment: Normal [facility] Main OR PACU I Recordon 03-22 Main OR PACU I Record PACU Phase I Docum ent Type FT Summary Primary Physician: Viral CLAROS MD Finalized Date/Time: 04/18/23 11:05:16 Pt. Name: SUNSHINE RYDERO.B./Sex: 2000 Female Med Rec #: [id number] Physician: Viral CLAROS MD Financial #: [id number] Pt. Type: A Room/Bed: [facility]/ Admit/Disch: 04/18/23 07:31:13 - Institution: Case [...] By: Nikia Woods RN 04/18/23 11:05 Normal [facility] Main OR PACU II Recordon Main OR PACU II Record PACU Phase II Document Type FT Summary Primary Physician: Viral CLAROS MD Finalized Date/Time: 04/18/23 13:12:09 Pt. Name: SUNSHINE RYDER Jarocho /Sex: 2000 Female Med Rec #: [id number] Physician: Viral CLAROS MD Financial #: [id number] Pt. Type: A Room/Bed: 04/18 Admit/Disch: 04/18/23 [...] By: Mindi Gonzalez RN 04/18/23 13:12 Normal [facility] Main OR Preoperative Recordo n 04-18-2023 Main OR Preoperative Record PreOp Document Type FT Summary Primary Physician: Viral CLAROS MD Finalized Date/Time: 04/18/23 09:46:06 Pt. Name: SUNSHINE RYDER Jarocho /Sex: 2000 Female Med Rec #: [id number] Physician: Viral CLAROS MD Financial #: [id number] Pt. Type: A Room/Bed: [facility]/ Admit/Disch: 04/18/23 07:31:13 - Institution: Case [...] By: Paul Reddy Ii 04/18/23 09:46 Normal [facility] Monitor Recordon 04-18-2023 Monitor Record [id number]#1. 00TIFF [facility] Operative Reporton Operative Report Patient: [...] placed per urethra and a well-lubricated 22 Comoran is urethroscope with 30 degree lens then passed into the bladder. Panendoscopy reveals no tumors, no stones, no diverticuli. The left orifice was cannulated and a point 035 wire was passed up into the kidney. Over that a 4.9 Comoran Dornier stent was passed into the kidney [...] it well. She is transferred to the rutica and then back to PACU in satisfactory [...] her sister. I did send prescriptions for [place], cephalexin, and oxybutynin to the pharmacy.. Estimated Blood Loss: 0 ml. Complications: None. Anesthesia type: General. Normal [facility] Comment on above: Result Comment: Elec tronically Signed By: Viral CLAROS MD\.br\Date and Time Signed: 04/18/23 10:06 EST Outpatient Surgery Discharge Instructionon 04-18-2023 Outpatient Surgery Discharge Instruction [place] [id number] Patient Discharge Instructions PERSON INFORMATION Name: SUNSHINE [...] THE NEAREST EMERGENCY ROOM OR CALL 911 IRBITNI KELSEY D, have received the attached patient education materials/instructions and have verbalized understanding: May we do a follow up call? Yes No I was present when discharge instructions were given Patient Signature Date Clinican/Nurse Signature ___ Date Follow up: With: Address: When: Viral CLAROS [address], [address], [facility] [address] [place] [address] Business (1) Comments: Please call my office [...] Information: You may receive a survey from [employer] asking you to rate your care experience. Your feedback is important and will help us understand what we do well and how we can improve the quality of care we provide to you, your loved ones and our community. It?s an honor to serve you. Thank you for choosing [facility] HERE ARE THE MEDICATION CHANGES THAT OCCURRED DURING YOUR HOSPITAL STAY New Medications [id number], [address], [place] [phone], [phone] acetaminophen-hydrocod one (acetaminophen-hydroco done 325 mg-5 mg [...] these instructions at home: Medicines ? Take iooe-jre-ecdusft and prescription medicines only as told by you (more content not included)... Normal [facility] Patient Education - Texton 0 04-18-2023 Patient [...] these instructions at home: Medicines ? Take tivf-nau-jyvpvas and prescription medicines only as told by [...] forming. ? (more content not included)... Normal [facility] Progress Note-Physicianon Progress Note-Physician Patient: SUNSHINE RYDER Age: 23 years Sex: Female : 2000 Associated Diagnoses: None Author: Aamir Patel Jr., DO Postoperative Information Postoperative disposition: Postoperative disposition: Home. Optimetrix number: Optimetrix number [id number]. Anesthetic utilized: General. Physical Examination Vital Signs [...] Surgery Unit, and To home ). Normal [facility] Comment on above: Result Comment: Elec tronically [...] All Problems Abdominal pain / SNOMED CT 10030261 / Confirmed ADHD / SNOMED CT 3795229906 / Confirmed Flank pain / SNOMED CT 620791617 / Confirmed Hypertension / SNOMED CT 7651334440 / Confirmed Kidney stone / SNOMED CT 273825003 / Confirmed Smoker / SNOMED CT 902307581 / Confirmed Added secondary to documentation in Social History. Histories Past Medical History: No active or resolved past medical history items have been selected or recorded. Procedure history: Tonsillectomy (002979944). wisdom extraction (18212910). Social History Social & Psychosocial Habits Alcohol [...] Auto 54.6 % Lymph Auto 32.6 % [place] Auto 10.3 % Eos Auto 1.7 % Basophil Auto 0.8 % Neutro Absolute 3.1 E9/L Lymph Absolute 1.9 E9/L [place] Absolute 0.6 E9/L Eos Absolute 0.1 E9/L Basophil Absolute 0.0 E9/L PT 12.0 second(s) INR 1.1 NA PTT 33.2 second(s) Glucose Lvl 105 mg/dL BUN 15 mg/dL Creatinine 0.8 mg/dL eGFR 107 mL/min/1.73 m2 BUN/Creat Ratio 19 Sodium Lvl 136 mmol/L Potass (more content not included)... Normal [facility] Comment on above: Result Comment: Elec tronically Signed By: Aamir Patel Jr., DO\.br\Date and Time Signed: 04/18/23 07:56 EST SEROLOGYOrdered By: Juliane Mcdonnell on 04-18-2023 HCG.beta subunit (U) [Moles/Vol] Negative Normal [facility] Man Sero U BetaHcg Qualon 04-18-2023 HCG.beta subunit (U) [Moles/Vol] Negative Normal [facility] Comment on above: Performed By: #### 2 [id number] ####[facility] [address] [place] [address] XR Abdomen 1 Viewon 04-18-19 24 XR [...] mGy = 0 DAP = 0 Normal [facility] BMPon 03-29-2023 Anion gap [Moles/Vol] 11 mmol/L Normal 6-16 [facility] Comment on above: Performed By: #### 1 4643426, 3250518, 58786532, [id number] #### [facility] [address] [place] [address] BUN/Creat Ratio 19 No Units Normal 10-20 [facility] Comment on above: Performed By: #### 1 3979481, 4992655, 19339993, 9994095 #### [facility] [address] [place] [address] Calcium [Mass/Vol] 8.6 mg/dL Low 8.9-11.1 [facility] Comment on above: Performed By: #### 1 [id number], 9604640, 51690100, 5301925 #### [facility] [address] [place] [address] Chloride [Moles/Vol] 107 mmol/L Normal 101-111 [facility] Comment on above: Performed By: #### 1 4281771, 5591072, 17682817, 5056046 #### [facility] [address] [place] [address] CO2 [Moles/Vol] 22 mmol/L Normal 21-31 [facility] Comment on above: Performed By: #### 1 1962716, 1787248, 53578475, 6424520 #### [facility] [address] [place] [address] Creatinine [Mass/Vol] 0.8 mg/dL Normal 0.5-1.3 [facility] Comment on above: Performed By: #### 1 0215584, 4605502, 95832837, 0809888 #### [facility] [address] [place] [address] Glucose [Mass/Vol] 105 mg/dL Normal 55-199 [facility] Comment on above: Performed By: #### 1 5027295, 7671399, 26921165, 1488405 #### [facility] [address] [place] [address] Potassium [Moles/Vol] 3.9 mmol/L Normal 3.5-5.3 [facility] Comment on above: Performed By: #### 1 0457500, 1429141, 89247226, 9995721 #### [facility] [address] [place] [address] Sodium [Moles/Vol] 136 mmol/L Normal 135-145 [facility] Comment on above: Performed By: #### 1 8442097, 1006432, 71018921, 8221685 #### [facility] [address] [place] [address] Urea nitrogen [Mass/Vol] 15 mg/dL Normal 5-21 [facility] Comment on above: Performed By: #### 1 6252200, 1667609, 34489780, 0488753 #### [facility] [address] [place] [address] CBC w/ Auto Diffon 4 Basophil Absolute 0.0 E9/L Normal 0.0-0.2 [facility] Comment on above: Performed By: #### 1 3983504, 0389407, 32793869, 3676573 #### [facility] [address] [place] [address] Basophils/100 WBC (Bld) 0.8 % Normal 0.0-2.0 [facility] Comment on above: Performed By: #### 1 5075004, 6760692, 40477841, 9430700 #### [facility] [address] [place] [address] Eos Absolute 0.1 E9/L Normal 0.0-0.5 [facility] Comment on above: Performed By: #### 1 8291951, 4132313, 91222751, 3779289 #### [facility] [address] [place] [address] Eosinophils/100 WBC (Bld) 1.7 % Normal 0.0-8.0 [facility] Comment on above: Performed By: #### 1 4485936, 6742577, 10322174, 9454989 #### [facility] [address] [place] [address] Erythrocyte distribution width (RBC) [Ratio] 13.0 % Normal 10.9-14.2 [facility] Comment on above: Performed By: #### 1 8442544, 9886493, 75271193, 9950627 #### [facility] [address] [place] [address] Hematocrit (Bld) [Volume fraction] 39.0 % Normal 34.0-46.0 [facility] Comment on above: Performed By: #### 1 3347845, 1383049, 90628985, 5305594 #### [facility] [address] [place] [address] Hemoglobin (Bld) [Mass/Vol] 13.2 g/dL Normal 12.0-16.0 [facility] Comment on above: Performed By: #### 1 5795067, 4928823, 78917088, 0765620 #### [facility] [address] [place] [address] Lymph Absolute 1.9 E9/L Normal 1.0-4.0 [facility] Comment on above: Performed By: #### 1 6971867, 9465138, 49282297, 4873873 #### [facility] [address] [place] [address] Lymphocytes/100 WBC (Bld) 32.6 % Normal 14.0-50.0 [facility] Comment on above: Performed By: #### 1 3580463, 9277871, 53619428, 0521132 #### [facility] [address] [place] [address] MCH (RBC) [Entitic mass] 30.1 pg Normal 27.0-34.0 [facility] Comment on above: Performed By: #### 1 3423073, 6698994, 27292609, 8746539 #### [facility] [address] [place] [address] MCHC (RBC) [Mass/Vol] 33.9 g/dL Normal 31.4-36.0 [facility] Comment on above: Performed By: #### 1 1480268, 3295851, 06458998, 9610660 #### [facility] [address] [place] [address] MCV (RBC) [Entitic vol] 89.0 fL Normal 80.0-100.0 [facility] Comment on above: Performed By: #### 1 9634474, 1839862, 62371961, 4928573 #### [facility] [address] [place] [address] [place] Absolute 0.6 E9/L Normal 0.2-1.0 [facility] Comment on above: Performed By: #### 1 8031092, 2786855, 33537336, 9735285 #### [facility] [address] [place] [address] Monocytes/100 WBC (Bld) 10.3 % Normal 4.0-14.0 [facility] Comment on above: Performed By: #### 1 2241313, 0599099, 90780396, 0869098 #### [facility] [address] [place] [address] Neutro Absolute 3.1 E9/L Normal 2.0-7.5 [facility] Comment on above: Performed By: #### 1 6097274, 0647898, 63144432, 0709379 #### [facility] [address] [place] [address] Neutro Auto 54.6 % Normal 36.0-75.0 [facility] Comment on above: Performed By: #### 1 2407207, 7057264, 96364508, 3136915 #### [facility] [address] [place] [address] Platelet 225.0 E9/L Normal 150.0-500.0 [facility] Comment on above: Performed By: #### 1 0984648, 7707491, 05499894, 9281770 #### [facility] [address] [place] [address] Platelet mean volume (Bld) [Entitic vol] 9.5 fL Normal 6.4-10.8 [facility] Comment on above: Performed By: #### 1 0661536, 0949619, 46815125, 7652923 #### [facility] [address] [place] [address] RBC 4.4 E12/L Normal 4.3-5.9 [facility] Comment on above: Performed By: #### 1 9368890, 7434994, 39248413, 5118478 #### [facility] [address] [place] [address] WBC 5.7 E9/L Normal 4.0-11.0 [facility] Comment on above: Performed By: #### 1 4450916, 4332397, 90873356, 9501652 #### [facility] [address] [place] [address] CHEMISTRYOrdered By: SYSTEM SYSTEM on 03-29-2023 Anion [...] 33.2 s Normal 25.1 - 36.5 second(s) [facility] Comment on above: Interpretive Data: [...] the same coagulation reagent and instrumentation as [facility]. Currently there are no coagulation studies available worldwide for children to 14 days, and no normal ranges. Heparin therapeutic range (represented by Anti-Factor Xa activity of 0.2 - 0.4 U/mL) corresponds to PTT of 56.6 - 109.0 sec. INR Coag (PPP) [Relative time] 1.1 {INR} Invalid Interpretation Code [facility] Comment on above: Interpretive Data: I NR results are specifically intended to assess patients stabilized on long-term Anticoagulation therapy suggested INR s Less Intensive Anticoagulation 2.0 3.0 Conventional Range 3.0 4.5 PT Coag (PPP) [Time] 12.0 s Normal 9.4 - 1 2.5 second(s) [facility] Comment on above: Interpretive Data: [...] the same coagulation reagent and instrumentation as [facility]. Currently there are no coagulation studies available worldwide for children to 14 days, and no normal ranges. Consent for Treatmenton Consent for Treatment [id number]#1.0 0TIFF Normal [facility] HEMATOLOGYOrdered By: SYSTEM SYSTEM on 03-29-2023 Basophil [...] Normal 80.0 - 100.0 fL Remisol Heme [place] Absolute 0.6 E9/L Normal 0.2 - 1.0 [...] Coag (PPP) [Time] 33.2 second(s) Normal 25.1-36.5 [facility] Comment on above: Result Comment: Para meter [...] the same coagulation reagent and instrumentation as [facility]. Currently there are no coagulation studies available worldwide for children to 14 days, and no normal ranges. Heparin therapeutic range (represented by Anti-Factor Xa activity of 0.2 - 0.4 U/mL) corresponds to PTT of 56.6 - 109.0 sec. Performed By: #### 1 9763495, 3338688, 98408148, 0182850 #### [facility] [address] [place] [address] INR Coag (PPP) [Relative time] 1.1 {INR} Invalid Interpretation Code [facility] Comment on above: Result Comment: INR results are specifically intended to assess patients stabilized on long-term Anticoagulation therapy suggested INR?s ?Less Intensive Anticoagulation? 2.0 ? 3.0 Conventional Range 3.0 ? 4.5 Performed By: #### 1 1553038, 8547777, 31218212, 3482829 #### [facility] [address] [place] [address] PT Coag (PPP) [Time] 12.0 second(s) Normal 9.4-12.5 [facility] Comment on above: Result Comment: 15 d [...] the same coagulation reagent and instrumentation as [facility]. Currently there are no coagulation studies available worldwide for children to 14 days, and no normal ranges. Performed By: #### 1 2142097, 5660453, 13567078, 1605991 #### [facility] [address] [place] [address] UA With Cult Reflexon 2023 Bacteria LM Ql (Urine sed) TRACE Normal Trace [facility] Comment on above: Performed By: #### 1 5036915 ####[address] [place] [address] Bilirubin Ql (U) Negative Normal Negative [facility] Comment on above: Performed By: #### 1 1423881 ####[address] [place] [address] Clarity (U) CLEAR Normal Clear [facility] Comment on above: Performed By: #### 1 6638966 ####[address] [place] [address] Color (U) YELLOW Normal Yellow [facility] Comment on above: Performed By: #### 1 8918428 ####[address] [place] [address] Epithelial cells.squamous LM.HPF (Urine sed) [#/Area] 5-8 Normal 0-2 [facility] Comment on above: Performed By: #### 1 4910082 ####[facility] [address] [place] [address] Glucose Test strip (U) [Mass/Vol] Negative Normal Negative [facility] Comment on above: Performed By: #### 1 0446286 ####[address] [place] [address] Hemoglobin Ql (U) TRACE Abnormal Negative [facility] Comment on above: Performed By: #### 1 2640723 ####[address] [address] Ketones (U) [Mass/Vol] Negative Normal Negative [facility] Comment on above: Performed By: #### 1 9593579 ####[facility] [address] [place] [address] [place].plasma/Lithiu m.RBC (Bld) [Mass ratio] 4-20 Normal 0-3 [facility] Comment on above: Performed By: #### 1 6163427 ####[address] [place] [address] Nitrite Ql (U) Negative Normal Negative [facility] Comment on above: Performed By: #### 1 8066245 ####[address] [address] pH (U) 6.5 [pH] Invalid Interpretation Code 5.0-9.0 [facility] Comment on above: Performed By: #### 1 1886145 ####[address] [address] Protein (U) [Mass/Vol] Negative Normal Negative [facility] Comment on above: Performed By: #### 1 3721978 ####[address] [address] Specific gravity (U) [Rel density] 1.010 Invalid Interpretation Code 1.005-1.030 [facility] Comment on above: Performed By: #### 1 2412275 ####[address] [address] Type of Urine collection method Clean Catch Normal [facility] Comment on above: Performed By: #### 1 1897949 ####[address] [place] [address] Urobilinogen Qn (U) 0.2 {Kellee'U}/dL Normal 0.0-1.0 [facility] Comment on above: Performed By: #### 1 5688232 ####[address] [place] [address] WBC Auto Ql (U) Negative Normal Negative [facility] Comment on above: Performed By: #### 1 4043701 ####[facility] [address] [place] [address] WBC LM.HPF (Urine sed) [#/Area] 0-5 Normal 0-5 [facility] Comment on above: Performed By: #### 1 9659574 ####[facility] [address] [place] [address] URINALYSISOrdered By: Fabi Reyna on 03-29-2023 Bacteria [...] AM) Normal Negative [facility] UA Auto SS [place].plasma/Lithiu m.RBC (Bld) [Mass ratio] 4-20 /HPF Normal [...] [facility] UA Auto SS Urobilinogen Qn (U) 0.2301151 {Kellee'U}/dL Normal 0.0 - 1.0 EU/dL [facility] UA Auto SS WBC Auto Ql (U) Negative (03/29/23 11:01 AM) Normal Negative [facility] UA Auto SS WBC LM.HPF (Urine sed) [#/Area] 0-5 /HPF Normal 0-5/HPF [facility] UA Auto SS eGFRon 03-29-2023 eGFR 107 mL/min/1.73 m2 Normal >=59 [facility] Comment on above: Order Comment: Order added by Discern Expert. Performed By: #### 1 1098292, 4002103, 69000309, 3663987 #### [facility] [address] [place] [address] RAD - CT Reporton 03-22-2023 RAD - CT Report [id number]#1. 00TIFF Normal [facility] RAD - MISCon 03-22-2023 RAD - MISC [id number]#1. 00TIFF Normal [facility] Formson 03-20-2023 Forms [id number]#1.0 0TIFF Normal [facility] Ambulatory Visit Summaryon 0 03-19-2023 Ambulatory Visit Summary SUNSHINE RYDER Jarocho :2000 Visit Date:03/19/2023 Ambulatory Visit Instructions Your [...] stone procedure Where: [address] [place] [id number]- Medications What How Much When Instructions Unchanged [...] ? 8 oz (237 mL) of milk, zehslcf-kjpcnsslzgbq-n airy milk, and calcium-fortifiedfruit juice. Calcium-fortified means [...] include: ? Spin (more content not included)... [facility] Formson 03-19-2023 Forms [id number]#1.0 0TIFF [facility] Patient Educationon 01-30-20 24 Patient Education Nephrology Dietary Guidelines to [...] ? 8 oz (237 mL) of milk, dceknbw-nhhfqmrmntfz-i airy milk, and calcium-fortifiedfruit juice. Calcium-fortified means [...] Spinach (cooked), rhubarb, beets, sweet potatoes, and Icelandic chard. ? Peanuts. ? Potato chips, fijian fries, and baked potatoes with skin on. ? Nuts and nut products. ? Chocolate. ? If you regularly take a diuretic medicine, make sure to eat at least 1 or 2 servings of fruits or vegetables that are high in potassium each day. These include: ? Avocado. ? Banana. ? [place], prune, carrot, or tomato juice. ? Baked [...] fish oil, or vitamin B6. ? Take vvgr-xlh-garlhro and prescription medicines only as told by your health care provider. These include supplements. What foods sh (more content not included)... Normal [facility] RAD - MISCon 03-19-2023 [facility] [id number]#1.0 0TIFF Normal [facility] Urology Office/Clinic Noteon 03-19-2023 Urology Office/Clinic Note Chief Complaint F/U with [facility] Staff New Pt. Pt was last seen on 12/23/2019. Pt was seen at [facility] on 01/22/23 due to left sided abdominal [...] Calculus of kidney) Pt was seen at [facility] on 01/22/23 due to left sided abdominal [...] plan Follow-up With When Contact Information Viral CALROS MD, URL [address] [place] [id number]- Additional Instructions: Schedule stone procedure Patient Education Dietary Guidelines to Help Prevent Kidney (more content not included)... Normal [facility] Comment on above: Result Comment: Elec tronically Signed By: Viral CLAROS MD\.br\Date and Time Signed: 03/19/23 10:22 EST\.br\Electronically Co-Signed By: Suzan Riley\.br\Date and Time Co-Signed: 03/19/23 10:19 EST ED Note-Physicianon 02-04-20 ED Note-Physician [id number]#1.0 0TIFF Normal [facility] PREG QUANT HCGon 05-18-2022 HCG QUANT <1 Normal [facility] Comment on above: Performed By: #### P REGQNT #### [facility] [address] [place] [address] Dr. Michael Vigil HCG RANGE SEE BELOW Normal [facility] Comment on above: Result Comment: 5-50 0.2-1 WEEK 50-500 1-2 WEEKS 100-5,000 2-3 WEEKS 500-10,000 3-4 WEEKS 1,000-50,000 4-5 WEEKS 10,000-100,000 5-6 WEEKS 15,000-200,000 6-8 WEEKS 10,000-100,000 2-3 MONTHS Performed By: #### P REGQNT #### [facility] [address] [place] [address] Dr. Michael Vigil CBC AUTO DIFFon 08-31-2021 BASO # 0.1 103/ul Normal 0.0-0.1 [facility] Comment on above: Performed By: #### C BC #### [facility] [address] [place] [address] Dr. Michael Vigil Basophils/100 WBC (Bld) 0.5 % Normal 0.2-2.0 [facility] Comment on above: Performed By: #### C BC #### [facility] [address] [place] [address] Dr. Michael Vigil EO # 0.1 103/ul Normal 0.0-0.7 [facility] Comment on above: Performed By: #### C BC #### [facility] [address] [place] [address] Dr. Michael Vigil Eosinophils/100 WBC (Bld) 1.3 % Normal 0.9-7.0 [facility] Comment on above: Performed By: #### C BC #### [facility] [address] [place] [address] Dr. Michael Vigil Erythrocyte distribution width (RBC) [Ratio] 12.5 % Normal 11.0-15.0 [facility] Comment on above: Performed By: #### C BC #### [facility] [address] [place] [address] Dr. Michael Vigil Hematocrit (Bld) [Volume fraction] 43.9 % Normal 36.0-48.0 [facility] Comment on above: Performed By: #### C BC #### [facility] [address] [place] [address] Dr. Michael Vigil Hemoglobin (Bld) [Mass/Vol] 14.7 g/dL Normal 12.0-16.0 [facility] Comment on above: Performed By: #### C BC #### [facility] [address] [place] [address] Dr. Michael Vigil IG # 0.03 10e3/ul Normal 0.00-0.03 [facility] Comment on above: Performed By: #### C BC #### [facility] [address] [place] [address] Dr. Michael Vigil IG % 0.3 % Normal 0.0-0.5 [facility] Comment on above: Performed By: #### C BC #### [facility] [address] [place] [address] Dr. Michael Vigil LYMPH # 3.0 103/ul Normal 1.2-3.8 [facility] Comment on above: Performed By: #### C BC #### [facility] [address] [place] [address] Dr. Michael Vigil Lymphocytes/100 WBC (Bld) 32.0 % Normal 20.5-60.0 [facility] Comment on above: Performed By: #### C BC #### [facility] [address] [place] [address] Dr. Michael Vigil MANUAL DIFF REQ NO Normal [facility] Comment on above: Performed By: #### C BC #### [facility] [address] [place] [address] Dr. Michael Vigil MCH (RBC) [Entitic mass] 30.2 pg Normal 26.7-34.0 [facility] Comment on above: Performed By: #### C BC #### [facility] [address] [place] [address] Dr. Michael Vigil MCHC (RBC) [Mass/Vol] 33.5 g/dL Normal 29.9-35.2 [facility] Comment on above: Performed By: #### C BC #### [facility] [address] [address] [address] Michael Vigil MCV (RBC) [Entitic vol] 90.1 fL Normal 81.0-99.0 [facility] Comment on above: Performed By: #### C BC #### [facility] [address] [address] [address] Michael Vigil MONO # 0.7 103/ul Normal 0.3-0.8 [facility] Comment on above: Performed By: #### C BC #### [facility] [address] [address] [address] Michael Vigil Monocytes/100 WBC (Bld) 7.8 % Normal 1.7-12.0 [facility] Comment on above: Performed By: #### C BC #### [facility] [address] [place] [address] Dr. Michael Vigil NEUT # 5.3 103/ul Normal 1.4-6.5 [facility] Comment on above: Performed By: #### C BC #### [facility] [address] [place] [address] Dr. Michael Vigil Neutrophils/100 WBC (Bld) 58.1 % Normal 43.0-75.0 [facility] Comment on above: Performed By: #### C BC #### [facility] [address] [address] [address] Michael Vigil Platelet mean volume (Bld) [Entitic vol] 10.3 fL Normal 9.5-13.5 [facility] Comment on above: Performed By: #### C BC #### [facility] [address] [address] [address] Michael Vigil PLT 292 103/ul Normal 150-450 [facility] Comment on above: Performed By: #### C BC #### [facility] [address] [address] [address] Michael Vigil RBC 4.87 106/ul Normal 4.20-5.40 [facility] Comment on above: Performed By: #### C BC #### [facility] [address] [address] [address] Michael Vigil WBC 9.2 103/ul Normal 4.0-11.0 [facility] Comment on above: Performed By: #### C BC #### [facility] [address] [address] [address] Michael Vigil PROF CHEM 8 (BAS METB)on Anion gap [Moles/Vol] 12.3 mmol/L Normal [facility] Comment on above: Performed By: #### B MP #### [facility] [address] [address] [address] Michael Vigil Calcium [Mass/Vol] 9.1 mg/dL Normal 8.5-10.1 [facility] Comment on above: Performed By: #### B MP #### [facility] [address] [place] [address] Dr. Michael Vigil Chloride [Moles/Vol] 106 mmol/L Normal 98-107 [facility] Comment on above: Performed By: #### B MP #### [facility] [address] [place] [address] Dr. Michael Vigil CO2 [Moles/Vol] 26.0 mmol/L Normal 21.0-32.0 [facility] Comment on above: Performed By: #### B MP #### [facility] [address] [place] [address] Dr. Michael Vigil Creatinine [Mass/Vol] 0.97 mg/dL Normal 0.55-1.02 [facility] Comment on above: Performed By: #### B MP #### [facility] [address] [place] [address] Dr. Michael Vigil EGFR-AF TONGAN >60 Normal >=60 [facility] Comment on above: Performed By: #### B MP #### [facility] [address] [place] [address] Dr. Michael Vigil EGFR-NON AF TONGAN >60 Normal >=60 [facility] Comment on above: Performed By: #### B MP #### [facility] [address] [address] [address] Michael Vigil Glucose [Mass/Vol] 96 mg/dL Normal 74-106 [facility] Comment on above: Performed By: #### B MP #### [facility] [address] [address] [address] Michael Vigil Potassium [Moles/Vol] 4.3 mmol/L Normal 3.5-5.1 [facility] Comment on above: Performed By: #### B MP #### [facility] [address] [address] [address] Michael Vigil Sodium [Moles/Vol] 140 mmol/L Normal 136-145 [facility] Comment on above: Performed By: #### B MP #### [facility] [address] [address] [address] Michael Vigil Urea nitrogen [Mass/Vol] 18.0 mg/dL Normal 6.4-19.3 [facility] Comment on above: Performed By: #### B MP #### [facility] [address] [address] [address] Michael Vigil Urea nitrogen/Creatinine [Mass ratio] 18.6 mg/mg Normal [facility] Comment on above: Performed By: #### B MP #### [facility] [address] [address] [address] Michael Vigil COVID Quick Testingon 2020 Result Negative [facility] [employer] Other Quick Strepon 02-09-2021 S. pyogenes Org specific cx Ql (Throat) Negative [facility] [employer] Other Quick Strep [facility] [employer] Other Vital Signs Date Time Vital Sign Value Performing Clinician Facility 03-06-2024 10:06-0500 Body height 160.02 cm [facility] 03-06-2024 10:06-0500 Body mass index (BMI) [Ratio] 39.8 kg/m2 [facility] 03-06-2024 10:06-0500 Body weight 102.05 kg [facility] 03-06-2024 10:06-0500 Diastolic blood pressure 100 mm[Hg] [facility] 03-06-2024 10:06-0500 Heart rate 68 /min [facility] 03-06-2024 10:06-0500 Systolic blood pressure 140 mm[Hg] [facility] 12-13-2023 08:58-0400 Body height 160.02 cm [facility] 12-13-2023 08:58-0400 Body mass index (BMI) [Ratio] 36.8 kg/m2 [facility] 12-13-2023 08:58-0400 Body temperature 97.9 [degF] [facility] 12-13-2023 08:58-0400 Body weight 94.34 kg [facility] 12-13-2023 08:58-0400 Diastolic blood pressure 97 mm[Hg] [facility] 12-13-2023 08:58-0400 Heart rate 75 /min [facility] 12-13-2023 08:58-0400 SaO2% (BldA) [Mass fraction] 98 % [facility] 12-13-2023 08:58-0400 Systolic blood pressure 134 mm[Hg] [facility] 11-14-2023 11:37-0400 Body height 160.02 cm [facility] 11-14-2023 11:37-0400 Body mass index (BMI) [Ratio] 36.3 kg/m2 [facility] 11-14-2023 11:37-0400 Body weight 92.98 kg [facility] 11-14-2023 11:37-0400 Diastolic blood pressure 91 mm[Hg] [facility] 11-14-2023 11:37-0400 Heart rate 97 /min [facility] 11-14-2023 11:37-0400 Systolic blood pressure 152 mm[Hg] [facility] 07-17-2023 11:53-0400 Body height 160.02 cm [facility] 07-17-2023 11:53-0400 Body mass index (BMI) [Ratio] 34.2 kg/m2 [facility] 07-17-2023 11:53-0400 Body weight 87.54 kg [facility] 07-17-2023 11:53-0400 Diastolic blood pressure 100 mm[Hg] [facility] 07-17-2023 11:53-0400 Heart rate 83 /min [facility] 07-17-2023 11:53-0400 Systolic blood pressure 137 mm[Hg] [facility] 06-13-2023 13:50-0400 Blood Pressure Location Viral CLAROS [facility] 06-13-2023 13:50-0400 Body temperature 97.7 [degF] Viral CLAROS [facility] 06-13-2023 13:50-0400 Diastolic blood pressure 114 mm[Hg] Viral CLAROS [facility] 06-13-2023 13:50-0400 Heart rate 60 /min Viral CLAROS [facility] 06-13-2023 13:50-0400 Mean blood pressure 127 mm[Hg] Viral CLAROS [facility] 06-13-2023 13:50-0400 Respiratory rate 20 /min Viral CLAROS [facility] 06-13-2023 13:50-0400 SaO2% (BldA) [Mass fraction] 98 % Viral CLAROS [facility] 06-13-2023 13:50-0400 Systolic blood pressure 153 mm[Hg] [facility] CLAROS [facility] 06-13-2023 12:45-0400 Blood Pressure Location Viral CLAROS [facility] 06-13-2023 12:45-0400 Body temperature 97.7 [degF] [facility] CLAROS [facility] 06-13-2023 12:45-0400 Diastolic blood pressure 91 mm[Hg] [facility] CLAROS [facility] 06-13-2023 12:45-0400 Diastolic blood pressure 101 mm[Hg] Viral COOK [facility] 06-13-2023 12:45-0400 Heart rate 73 /min Viral COOK [facility] 06-13-2023 12:45-0400 Heart rate 70 /min Vir[facility] COOK [facility] 06-13-2023 12:45-0400 Mean blood pressure 107 mm[Hg] [facility] COOK [facility] 06-13-2023 12:45-0400 Mean blood pressure 120 mm[Hg] Vir[facility] COOK [facility] 06-13-2023 12:45-0400 Respiratory rate 18 /min Viral COOK [facility] 06-13-2023 12:45-0400 Respiratory rate 16 /min Viral COOK [facility] 06-13-2023 12:45-0400 SaO2% (BldA) [Mass fraction] 97 % Viral COOK [facility] 06-13-2023 12:45-0400 Systolic blood pressure 138 mm[Hg] Viral COOK [facility] 06-13-2023 12:45-0400 Systolic blood pressure 159 mm[Hg] [facility] COOK [facility] 06-13-2023 12:30-0400 Respiratory rate 14 /min Viral COOK [facility] 06-13-2023 12:17-0400 Body temperature 96.98 [degF] [facility] COOK [facility] 06-13-2023 12:10-0400 Respiratory rate 15 /min [facility] COOK [facility] 06-13-2023 12:05-0400 Respiratory rate 16 /min Viral CLAROS [facility] 06-13-2023 09:59-0400 Mean blood pressure 123 mm[Hg] [facility] CLAROS [facility] 06-13-2023 09:59-0400 Heart rate 80 /min Viral CLAROS [facility] 06-13-2023 09:58-0400 Mean blood pressure 102 mm[Hg] Vir[facility] CLAROS [facility] 05-20-2023 14:30-0400 Diastolic blood pressure 106 mm[Hg] [facility] 05-20-2023 14:30-0400 Heart rate 69 /min [facility] 05-20-2023 14:30-0400 Mean blood pressure 119 mm[Hg] [facility] 05-20-2023 14:30-0400 Respiratory rate 20 /min [facility] 05-20-2023 14:30-0400 SaO2% (BldA) [Mass fraction] 98 % [facility] 05-20-2023 14:30-0400 Systolic blood pressure 144 mm[Hg] [facility] 05-20-2023 14:00-0400 Diastolic blood pressure 110 mm[Hg] [facility] 05-20-2023 14:00-0400 Heart rate 70 /min [facility] 05-20-2023 14:00-0400 Mean blood pressure 121 mm[Hg] [facility] 05-20-2023 14:00-0400 Respiratory rate 18 /min [facility] 05-20-2023 14:00-0400 SaO2% (BldA) [Mass fraction] 99 % [facility] 05-20-2023 14:00-0400 Systolic blood pressure 142 mm[Hg] [facility] 05-20-2023 13:00-0400 Diastolic blood pressure 98 mm[Hg] [facility] 05-20-2023 13:00-0400 Mean blood pressure 113 mm[Hg] [facility] 05-20-2023 11:36-0400 Body temperature 97.88 [degF] [facility] 05-20-2023 11:36-0400 Heart rate 82 /min [facility] 04-23-2023 15:03-0500 Body height 160.02 cm [facility] 04-23-2023 15:03-0500 Body mass index (BMI) [Ratio] 35.6 kg/m2 [facility] 04-23-2023 15:03-0500 Body weight 91.28 kg [facility] 04-23-2023 15:03-0500 Diastolic blood pressure 92 mm[Hg] [facility] 04-23-2023 15:03-0500 Heart rate 71 /min [facility] 04-23-2023 15:03-0500 SaO2% (BldA) [Mass fraction] 97 % [facility] 04-23-2023 15:03-0500 Systolic blood pressure 127 mm[Hg] [facility] 04-18-2023 10:48-0500 SaO2% (BldA) [Mass fraction] 98 % [facility] CLAR[facility] 04-18-2023 10:41-0500 Heart rate 53 /min [facility] CLAR[facility] 04-18-2023 10:41-0500 SaO2% (BldA) [Mass fraction] 99 % [facility] CL[facility] 04-18-2023 10:41-0500 Diastolic blood pressure 85 mm[Hg] [facility] CL[facility] 04-18-2023 10:41-0500 Mean blood pressure 104 mm[Hg] [facility] CL[facility] 04-18-2023 10:41-0500 Systolic blood pressure 140 mm[Hg] [facility] CL[facility] 04-18-2023 10:40-0500 Respiratory rate 18 /min [facility] CLAR[facility] 04-18-2023 10:35-0500 Blood Pressure Location Viral CLAROS [facility] 04-18-2023 10:35-0500 Body temperature 97.88 [degF] [facility] CL[facility] 04-18-2023 10:35-0500 Diastolic blood pressure 101 mm[Hg] [facility] CL[facility] 04-18-2023 10:35-0500 Heart rate 59 /min [facility] CL[facility] 04-18-2023 10:35-0500 Mean blood pressure 119 mm[Hg] [facility] 04-18-2023 10:35-0500 Respiratory rate 15 /min [facility] CL[facility] 04-18-2023 10:35-0500 SaO2% (BldA) [Mass fraction] 97 % [facility] 04-18-2023 10:35-0500 Systolic blood pressure 154 mm[Hg] [facility] CL[facility] 04-18-2023 10:20-0500 Blood Pressure Location Viral CLAROS [facility] 04-18-2023 10:20-0500 Diastolic blood pressure 87 mm[Hg] [facility] COOK [facility] 04-18-2023 10:20-0500 Heart rate 66 /min Vir[facility] COOK [facility] 04-18-2023 10:20-0500 Mean blood pressure 107 mm[Hg] [facility] COOK [facility] 04-18-2023 10:20-0500 Respiratory rate 20 /min [facility] COOK [facility] 04-18-2023 10:20-0500 Systolic blood pressure 146 mm[Hg] [facility] COOK [facility] 04-18-2023 10:15-0500 Blood Pressure Location Viral CLAROS [facility] 04-18-2023 10:15-0500 Mean blood pressure 120 mm[Hg] [facility] COOK [facility] 04-18-2023 10:15-0500 Respiratory rate 11 /min Vir[facility] COOK [facility] 04-18-2023 10:07-0500 Body temperature 97.88 [degF] [facility] C[facility] 04-18-2023 10:00-0500 Respiratory rate 13 /min [facility] COOK [facility] 04-18-2023 09:55-0500 Respiratory rate 15 /min [facility] COOK [facility] 04-18-2023 07:52-0500 Mean blood pressure 101 mm[Hg] [facility] COOK [facility] 04-18-2023 07:51-0500 Body temperature 97.52 [degF] [facility] C[facility] 04-18-2023 07:51-0500 Mean blood pressure 110 mm[Hg] [facility] 03-29-2023 10:57-0500 Diastolic blood pressure 91 mm[Hg] [facility] 03-29-2023 10:57-0500 Heart rate 79 /min [facility] CL[facility] 03-29-2023 10:57-0500 Mean blood pressure 107 mm[Hg] [facility] 03-29-2023 10:57-0500 Systolic blood pressure 139 mm[Hg] [facility] 03-29-2023 10:56-0500 Heart rate 76 /min [facility] CL[facility] 03-29-2023 10:56-0500 SaO2% (BldA) [Mass fraction] 97 % [facility] CLAR[facility] 03-29-2023 10:56-0500 Diastolic blood pressure 104 mm[Hg] [facility] CLAROS [facility] 03-29-2023 10:56-0500 Mean blood pressure 119 mm[Hg] [facility] CLAR[facility] 03-29-2023 10:56-0500 Systolic blood pressure 150 mm[Hg] [facility] CL[facility] 03-19-2023 14:47-0500 Body mass index (BMI) [Ratio] 36.46 kg/m2 Ramy Cong [employer] Work Phone: [facility] 03-19-2023 14:47-0500 Body weight 93.35 kg Ramy Cong DO Work Phone: [facility] 03-19-2023 14:47-0500 Diastolic blood pressure 82 mm[Hg] Ramy Cong DO Work Phone: [facility] 03-19-2023 14:47-0500 Systolic blood pressure 120 mm[Hg] Ramy Gar DO Work Phone: [facility] 03-19-2023 09:25-0500 Blood Pressure Location [facility]al CLAR[facility] 03-19-2023 09:25-0500 Diastolic blood pressure 84 mm[Hg] [facility] CL[facility] 03-19-2023 09:25-0500 Systolic blood pressure 130 mm[Hg] [facility] CL[facility] 01-29-2023 08:30-0500 Body weight 91.17 kg Gaye Dill Other uiu Other 01-29-2023 08:30-0500 Diastolic blood pressure 84 mm[Hg] Gaye Dill Other [facility] Other 01-29-2023 08:30-0500 Systolic blood pressure 139 mm[Hg] Gaye Dill Other [facility] Other 07-18-2022 11:45-0400 Body height 160.02 cm Gaye Dill Other [facility] Other 07-18-2022 11:45-0400 Body mass index (BMI) [Ratio] 32.41 kg/m2 Gaye Dill Other [facility] Other 07-18-2022 11:45-0400 Body weight 83.01 kg Gaye Dill Other u[facility] Other 07-18-2022 11:45-0400 Diastolic blood pressure 86 mm[Hg] Gaye Dill Other u[facility] Other 07-18-2022 11:45-0400 Systolic blood pressure 145 mm[Hg] Gaye Dill Other [facility] Other 06-25-2022 15:45-0400 Body height 160.02 cm Gaye Dill Other [facility] Other 06-25-2022 15:45-0400 Body mass index (BMI) [Ratio] 31.7 kg/m2 Gaye Dill Other [facility] Other 06-25-2022 15:45-0400 Body weight 81.19 kg Gaye Dill Other [facility] Other 06-25-2022 15:45-0400 Diastolic blood pressure 80 mm[Hg] Gaye Dill Other [facility] Other 06-25-2022 15:45-0400 SaO2% (BldA) [Mass fraction] 99 % Gaye Dill Other [facility] Other 06-25-2022 15:45-0400 Systolic blood pressure 132 mm[Hg] Gaye Dill Other [facility] Other 02-09-2021 17:45-0500 Body height 160.02 cm Columba Fernandes Other u[facility] Other 02-09-2021 17:45-0500 Body mass index (BMI) [Ratio] 33.65 kg/m2 Columba Fernandes Other [facility] Other 02-09-2021 17:45-0500 Body temperature 97.3 [degF] Columba Fernandes Other [facility] Other 02-09-2021 17:45-0500 Body weight 86.18 kg Columba Fernandes Other u[facility] Other 02-09-2021 17:45-0500 Respiratory rate 18 /min Columba Fernandes Other u[facility] Other 02-09-2021 17:45-0500 SaO2% (BldA) [Mass fraction] 99 % Columba Fernandes Other uiu Other Encounters Encounter Date Encounter Type Care Provider Facility Start: 11-25-2024 ambulatory Viral CLAROS Facility :[facility] Start: 08-19-2024 End: 08-19-2024 Bamboo flowsheet Ramy Cong DO Work Phone: [facility] Start: 08-19-2024 End: 08-19-2024 Bamboo flowsheet Ramy Cong DO Work Phone: [facility] Start: 05-30-2024 End: 05-30-2024 Emergency department patient visit GAYE DILL [facility] Start: 03-06-2024 End: 03-06-[address] [facility] Work Phone: Start: 03-06-2024 End: 03-06-2024 Patient encounter procedure [facility] Physician [facility] Work Phone: Start: 03-04-2024 Non-patient / Non-visit [facility] Physician [facility] Work Phone: Start: 12-13-2023 End: 12-13-[address] [facility] Work Phone: Start: 12-13-2023 End: 12-13-2023 Patient encounter procedure [facility] Physician [facility] Work Phone: Start: 11-20-2023 End: 11-20-2023 ambulatory Viral CLAROS Facility: [place] Start: 11-20-2023 End: 11-20-2023 Patient encounter procedure [facility] CLAR[facility] [place] Start: 11-19-2023 End: 11-19-2023 ambulatory Viral CLAROS Facility:[facility] Start: 11-14-2023 End: 11-14-[address] [facility] Work Phone: Start: 11-14-2023 End: 11-14-2023 Patient encounter procedure [facility] Physician [facility] Work Phone: Start: 11-04-2023 End: 11-04-2023 Emergency department patient visit GAYE DILL [facility] Start: 07-17-2023 End: 07-17-[address] [facility] Work Phone: Start: 07-17-2023 End: 07-17-2023 Patient encounter procedure [facility] Physician [facility] Work Phone: Start: 07-02-2023 End: 07-02-2023 ambulatory RAMY ORTEGAO Not Available Start: 06-13-2023 End: 06-13-2023 Admission to same day surgery center Viral CLAROS [facility] Start: 06-13-2023 End: 06-13-2023 ambulatory Viral CLAROS [facility] Start: 06-05-2023 End: 06-05-2023 ambulatory Vrial CLAROS Facility:[facility] Start: 06-05-2023 End: 06-05-2023 Patient encounter procedure [facility]al CL[facility] Start: 05-28-2023 End: 05-28-2023 ambulatory [facility] Start: 05-20-2023 End: 05-20-2023 Emergency department patient visit Lawson Carbone [facility] Start: 05-10-2023 End: 05-31-2023 Pre-admission assessment Viral CLAROS [facility] Start: 05-10-2023 End: 05-10-2023 ambulatory RAMY CONG Not Available Start: 04-26-2023 Non-patient / Non-visit [facility] Work Phone: Start: 04-23-2023 End: 04-23-2023 Patient encounter procedure [facility] Work Phone: Start: 04-18-2023 End: 04-18-2023 Admission to same day surgery center Viral CLAROS [facility] Start: 04-18-2023 End: 04-18-2023 ambulatory Viral CLAROS Facility[facility] Start: 03-29-2023 End: 03-29-2023 ambulatory Viral CLAROS Facility[facility] Start: 03-29-2023 End: 03-29-2023 Patient encounter procedure Viral CLAROS [facility] Start: 03-19-2023 End: 03-19-2023 ambulatory RAMY CONG Not Available Start: 03-19-2023 End: 03-19-2023 Patient encounter procedure Ramy Cong DO Work Phone: [facility] Start: 03-19-2023 End: 03-19-2023 Periodic preventive med est patient 18-39 yrs Ramy Cong DO Work Phone: [facility] Comment on above: Well woman exam with routine gynecological exam Start: 03-19-2023 End: 03-19-2023 ambulatory Viral CLAROS Facility:[facility] Start: 03-19-2023 End: 03-19-2023 Patient encounter procedure Viral CLAR[facility] Start: 03-11-2023 End: 03-11-2023 ambulatory Gaye Fuentes Other [facility] Other Start: 03-11-2023 Telephone encounter Gaye Fuentes [facility] Start: 02-22-2023 End: 02-22-2023 ambulatory Gaye Fuentes Other u[facility] Other Start: 02-22-2023 Telephone encounter Gaye Fuentes [facility] Start: 02-21-2023 End: 02-21-2023 ambulatory Gaye Fuentes Other u[facility] Other Start: 02-21-2023 Telephone encounter Gaye Fuentes [facility] Start: 01-29-2023 End: 01-29-2023 ambulatory Gaye Fuentes Other u[facility] Other Start: 01-29-2023 Office outpatient vi sit 25 minutes Gaye Fuentes [facility] Start: 11-16-2022 End: 11-16-2022 ambulatory Gaye Dill Other u[facility] Other Start: 11-16-2022 Telephone encounter Gaye Fuentes [facility] Start: 08-27-2022 End: 08-27-2022 ambulatory Gaye Fuentes Other uiu Other Start: 08-27-2022 Telephone encounter Gaye Dill [facility] Start: 08-23-2022 End: 08-23-2022 ambulatory Gaye Dill Other u[facility] Other Start: 08-23-2022 Telephone encounter Gaye Fuentes [facility] Start: 07-18-2022 End: 07-18-2022 ambulatory Gaye Dill Other uiu Other Start: 07-18-2022 Office outpatient vi sit 15 minutes Gaye Dill [facility] Start: 06-25-2022 End: 06-25-2022 ambulatory Gaye Dill Other uiu Other Start: 06-25-2022 Office outpatient vi sit 10 minutes Gaye Dill [facility] Start: 05-18-2022 Telephone encounter Gaye Dill [facility] Start: 05-18-2022 End: 05-19-2022 ambulatory GAYE Hatch FUENTES [facility] Other Start: 04-10-2022 End: 04-10-2022 ambulatory Gaye Dill Other u[facility] Other Start: 04-10-2022 Telephone encounter Gaye Dill [facility] Start: 04-02-2022 End: 04-02-2022 ambulatory Gaye Dill Other uiu Other Start: 04-02-2022 Telephone encounter Gaye Dill [facility] Start: 03-30-2022 End: 03-30-2022 ambulatory Gaye Dill Other u[facility] Other Start: 03-30-2022 Telephone encounter Gaye Dill [facility] Start: 03-14-2022 ambulatory GAYE Hatch FUENTES Facility :[facility] Start: 02-26-2022 End: 02-26-2022 ambulatory Gaye Dill Other uiu Other Start: 02-26-2022 Telephone encounter Gaye Dill [facility] Start: 08-31-2021 End: 08-31-2021 ambulatory GAYE Hatch FUENTES Facility:[facility] Start: 02-09-2021 End: 02-09-2021 ambulatory Columba Fernandes Other u[facility] Other Start: 02-09-2021 Office outpatient vi sit 15 minutes Columba Fernandes [facility] Start: 12-02-2018 Well child visit Gaye Fuentes Other uiu Other Start: 08-12-2018 End: 08-12-2018 Emergency department patient visit [facility] Procedures Date Procedure Procedure Detail Performing Clinician Start: 06-13-2023 Transurethral cystoscopy Viral CLAROS Comment on above: Left stent removal, stone extraction, stone basket and homium laser Start: 05-28-2023 Follow-up visit Follow-up VELMA CHAND Start: 04-18-2023 Extracorporeal shock wave lithotripsy of calculus of kidney Viral CLAROS Start: 08-12-2018 POST OP SHOE Start: 03-14-2018 Health examination o f sub-group Gaye Dill Other End: 07-23-2018 screening Gaye Dill Other End: 08-20-2018 Diabetes mellitus screening Gaye Fuentes Other Insertion of intraut erine contraceptive device Gaye Dill Other Lithotripsy Ladariusit Raf Placement of stent Stent placement 2 Astr it Raf Comment on above: stent in ureter visit Gaye Fuentes Other End: 06-29-2021 Removal of intrauterine device Gaye Fuentes Other Tonsillectomy Viral CLAROS Tooth structure (bod y structure) Viral CLAROS Plan of Treatment Date Care Activity Detail Author Start: 05-03-2023 End: 05-03-2023 Clinical Support 05/03/2023 10:10 AM EDT Clinical Support [facility] [address] [place] [address] [place] [address] [facility] Cytology Cervical or vaginal smear or scraping study Pap Smear Pathology and Cytology Routine Well woman exam with routine gynecological exam Ordered: 03/19/2023 [facility] Work Phone: Comment on above: Ordered: 03/19/2023 Immunizations Immunization Date Immunization Notes Care Provider Barney lemus 11-02-2014 diphtheria, tetanus toxoids and acellular pertussis vaccine, unspecified formulation Gaye Dill Other [facility] 10-09-2007 DTaP, unspecified formulation Viral CLAROS [facility] 10-09-2007 poliovirus vaccine, unspecified formulation Viral CLAROS [facility] 10-09-2007 varicella virus vaccine Jarvis nuno [employer] [facility] 09-27-2005 diphtheria, tetanus toxoids and acellular pertussis vaccine Viral CLAROS [facility] 09-27-2005 measles, mumps and rubella virus vaccine Viral [employer] [facility] 11-24-2003 DTaP, unspecified formulation Viral CLAROS [facility] 11-24-2003 measles, mumps and rubella virus vaccine Viral CLAROS [facility] 11-24-2003 poliovirus vaccine, unspecified formulation Viral CLAROS [facility] 11-24-2003 varicella virus vaccine Jarvis nuon [employer] [facility] 2002 DTaP, unspecified formulation Viral [employer] [facility] 2002 poliovirus vaccine, unspecified formulation Viral CLAROS [facility] 2002 DTaP, unspecified formulation Viral CLAROS [facility] 2002 poliovirus vaccine, unspecified formulation Viral CLAROS [facility] Payers Date Payer Category Payer Medicaid (Managed Care) [facility] [id number] 2022 Medicaid [employer] [facility] [id number] 2022-Present [address] [address] [place] [address] [id number] 2022 Private Health Insurance [employer] [id number] 2022 Unknown [employer] [id number] 2022-Present [address] [place] [address] [id number] 2018 Private Health Insurance [id number] 2002 Unknown [id number] 2.16.840.1.443015.3.579.2. 593 2002 Unknown [id number] 2.16.840.1.968890.3.579.2. 1259 2002 Unknown [id number] 2.16.840.1.122708.3.579.2. 1259 2002 Unknown [id number] 2.16.840.1.841971.3.579.2. 1259 2002 Unknown [id number] 2.16.840.1.830015.3.579.2. 727 2002 Unknown [id number] 2.16.840.1.859286.3.579.2. 727 2002 Unknown [id number] 2.16.840.1.233484.3.579.2. 727 2002 Unknown [id number] 2.16.840.1.289277.3.579.2. 727 2002 Unknown [id number] 2.16.840.1.088257.3.579.2. 727 2002 Unknown [id number] 2.16.840.1.189058.3.579.2. 727 2002 Unknown [id number] 2.16.840.1.906180.3.579.2. 727 2002 Unknown [id number] 2.16.840.1.493734.3.579.2. 727 2002 Unknown [id number] 2.16.840.1.517096.3.579.2. 1286 2002 Unknown [id number] 2.16.840.1.484006.3.579.2. 1286 2002 Unknown [id number] 2.16.840.1.107760.3.579.2. 1286 1980 Unknown [id number] 2.16.840.1.766899.3.579.2. 173 1980 Unknown [id number] 2.16.840.1.871350.3.579.2. 593 1980 Unknown [id number] 2.16.840.1.948551.3.579.2. 593 1980 Unknown [id number] 2.16.840.1.421199.3.579.2. 727 1959 Unknown [id number] 2.16.840.1.713061.19 1959 Unknown [id number] 2.16.840.1.216796.19 Social History Date Type Detail Facility Start: 08-27-2022 End: 05-10-2023 Sex Assigned At [facility] Start: 08-27-2022 End: 03-19-2023 Tobacco smoking status Never smoked tobacco (finding) [facility] - [place] Tobacco smoking status Never [facility] [place] Start: 08-27-2022 Tobacco use and exposure Smokeless tobacco non-user [facility] Start: 03-19-2023 End: 07-02-2023 Alcohol intake Lifetime non-drinker (finding) [facility] Start: 08-27-2022 End: 05-10-2023 History of Social function [facility] Start: 2000 Sex Assigned At Not on file [facility] Tobacco Current vaping o r e-cigarette use Smokeless Tobacco Use:. Vaping [facility] Tobacco smoking status No Smokin g Status Entered [facility] Start: 2000 Sex Assigned At Female F [facility] Work Phone: Start: 03-06-2024 Sex Female (finding) [facility] Medical Equipment Procedure Code Equipment Code Equipment Origin al Text Equipment Identifier Dates CYSTOSCOPY STENT INSERTION SHAWN COOK, Viral Catalan [...] Facility 11-20-2023 Functional Status N/A [facility] 06-05-2023 Functional Status N/A [facility] 06-03-2023 Functional Status No [facility] 05-20-2023 Functional Status N/A [facility] 03-29-2023 Functional Status No [facility] 03-19-2023 Functional Status N/A [facility] Clinical Notes 02-09-2021 to 12-13-2023 Note Date & Type Note Facility 12-13-2023 Evaluation note Diagnosis Onset Date Resolution Adult attention deficit disorder acute December 12 8:55am Sinusitis, acute maxillary acute December 12 8:55am [facility] Work Phone: [phone] Hospital Discharge instructions Patient Education 11/20/2023 15:35:40 [...] include: ?8 oz (237 mL) of milk, bxvpkvi-vzkqlkkxyqyk-nzqwv milk, and calcium- fortifiedfruit juice. Calcium-fortified means [...] ?Spinach (cooked), rhubarb, beets, sweet potatoes, and Icelandic chard. ?Peanuts. ?Potato chips, fijian fries, and baked potatoes with skin on. ?Nuts and nut products. ?Chocolate. If you regularly take a diuretic medicine, make sure to eat at least 1 or 2 servings of fruits or vegetables that are high in potassium each day. These include: ?Avocado. ?Banana. ?[place], prune, carrot, or tomato juice. ?Baked potato. [...] magnesium, fish oil, or vitamin B6. Take tiyv-ceq-fuxjqbb and prescription medicines only as told by [...] Casseroles. Pizza. Lasagna. Frozen meals. Potato chips. Comoran fries. The items listed above may not [...] provider. Document Revised: 05/17/2022 Document Reviewed: 05/17/2022 [employer] Patient Education 2023 [employer]. Follow Up Care 10/28/2023 14:26:35 With:SHAWN COOK, Viral Catalan, URL Address: [address] [place] [phone]- When: Unknown [facility] [place] 10-02-2024 NotePatient Education Nephrology Dietary Guidelines to [...] ? 8 oz (237 mL) of milk, eoodejj-jrandbpofzsd-ynanm milk, and calcium- fortifiedfruit juice. Calcium-fortified means [...] Spinach (cooked), rhubarb, beets, sweet potatoes, and Icelandic chard. ? Peanuts. ? Potato chips, fijian fries, and baked potatoes with skin on. ? Nuts and nut products. ? Chocolate. ? If you regularly take a diuretic medicine, make sure to eat at least 1 or 2 servings of fruits orvegetables that are high in potassium each day. These include: ? Avocado. ? Banana. ? [place], prune, carrot, or tomato juice. ? Baked [...] fish oil, or vitamin B6. ? Take ouac-cir-ejdhwic and prescription medicines only as told by your health care provider. Theseinclude suppleme (more content not included)...[facility]04-25-2024 Hospital Discharge instructions Patient Education 06/13/2023 13:55:17 Post Op Patient Instructions - FT (Custom) (CUSTOM) 06/13/2023 11:26:22 Tkye-Ited-od Utereroscopy,Lithotripsy, Stone Extraction, Stent Placement (Custom) [facility] [place], [place] Dr. Viral Ramsay Post-operative Instructions for [...] other reasons. 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 [facility]04-25-2024 Evaluation + Plan note Diagnostic Tests Pending * Calculi Analysis Urinary 06/13/23 Future Scheduled Tests Radiology* XR Abdomen 1 View 04/19/23 [facility]04-17-2024 Hospital Discharge instructions Patient Education 06/05/2023 08:46:07 [...] including vitamins, herbs, eye drops, creams, and hdry-kht-yijqefn medicines. Any problems you or family members [...] provider tells you to take them. Taking ilhm-dvl-zmotdpw medicines, vitamins, herbs, and supplements. Tests You [...] provider. Document Revised: 01/01/2022 Document Reviewed: 10/09/2021 [employer] Patient Education 2022 [employer]. Follow Up Care 06/05/2023 08:12:19 With:SHAWN COOK, Viral Catalan, URL Address: [address] [place], [place] [id number] When: Unknown [facility] 04-15-2024 Note [id number] NoteCard[facility] Clinic Note Chief Complaint: [...] or concerns. Velma Chand MD Interventional Cardiology [facility]04-01-2024 Hospital Discharge instructions Patient Education 05/20/2023 14:37:25 [...] Follow these instructions at home: Medicines Take hkgd-tzu-jwfedcx and prescription medicines only as told by [...] or the blood stops without treatment. Take odcs-gfs-lzumcsv and prescription medicines only as told by your health care provider. Drink enough fluid to keep your urine pale yellow. This information is not intended to replace advice given to you by your health care provider. Make sure you discuss any questions you have with your health care provider. Document Revised: 10/05/2020 Document Reviewed: 10/05/2020 [employer] Patient Education 2022 [employer]. 05/20/2023 14:37:25 Ureteral Stent Implantation, Care After [...] Follow these instructions at home: Medicines Take rqjj-fae-xbyymcc and prescription medicines only as told by [...] actions to prevent or treat constipation: ?Take ajjd-zbw-quadyqr or prescription medicines. ?Eat foods that are [...] last for up to 1 week. Take omns-qnq-khnacmk and prescription medicines only as told by [...] provider. Document Revised: 03/12/2022 Document Reviewed: 03/12/2022 [employer] Patient Education 2022 [employer]. 05/20/2023 14:37:25 Flank Pain, Adult Flank Pain, [...] told by your health care provider. Take vqtk-mut-wwoxbyo and prescription medicines only as told by [...] provider. Document Revised: 04/17/2021 Document Reviewed: 04/17/2021 [employer] Patient Education 2022 [employer]. Follow Up Care 05/20/2023 11:33:39 With:Viral CLAROS Address: [address] [phone]- Business (1) When:05/23/2023 14:21:58 Comments:Call Dr for diagnosis based follow up. Dr. Claros's office is going to call. Call the office if they do not call you in the next couple days. Continue taking Bactrim as prescribed. Return to the emergency room if your pain gets worse, fever or any new symptoms. With:GAYE DILL Address: [address] [place] [phone]- Business (1) When:Within 3 Day(s) [facility]04-01-2024 Evaluation + Plan noteExtracted from: Title:ED Note Author:Lawson Carbone M.D. te:05/20/23 1. Flank pain (R10.9: Unspec ified [...] Appointments Appointment Date:05/30/2023 01:30:00 PM Scheduled Provider: Location:[facility] Appointment Type:Surgical PAT FT Appointment Date:06/13/2023 11:15:00 AM Scheduled Provider: Location:[facility] Appointment Type:Surgery FT Diagnostic Tests Pending * Urine Culture 05/20/23 Future Scheduled Tests Radiology* XR Abdomen 1 View 04/19/23 [facility]02-29-2024 Evaluation + Plan noteExtracted from: Title:ANES Post-operative Note - General Author: Aamir Patel Jr., DO Date:04/18/23 Plan Transfer/Discharge: Transfer/Discharge Discharge when meets criteria ( From PACU to Ambulatory Surgery Unit, and To home ). Extracted from: Title:ANES Pre-operative Note - Adult Author:Aamir Joya Jr., DO Date:04/18/23 Plan [place] [employer]hesi[employer] (ASA) physical status classification: Class II. Anesthetic Preoperative Plan: Anesthesia General. [facility]02-29-2024 Hospital Discharge instructions Patient Education 04/18/2023 [...] Follow these instructions at home: Medicines Take clvu-bcp-qrbncln and prescription medicines only as told by [...] provider. Document Revised: 01/01/2022 Document Reviewed: 10/09/2021 [employer] Patient Education 2022 [employer]. Follow Up Care 03/19/2023 10:26:52 With:Viral CLAROS Address: [address] [place] [address] [facility] (1) When: Unknown Comments:Please call [...] the fluids to keep the urine clear. [facility]01-30-2024 History of Present illness Narrative* Ramy Corleyzio, - 03/19/2023 2:10 PM EST Reason for [...] Never Past Surgical History: Procedure Laterality Date CO TONSILLECTOMY & ADENOIDECTOMY <AGE 14 Allergies Allergen [...] nursing note reviewed. Exam conducted with a shot core drill operator helper present. Vitals: Estimated body mass index is [...] of: Ramy Gar DO documented in [facility] [id number] Hospital Discharge instructions Patient Education 03/19/2023 10:15:59 [...] include: ?8 oz (237 mL) of milk, zotovmf-qoggwnwpqdky-gbcqz milk, and calcium- fortifiedfruit juice. Calcium-fortified means [...] ?Spinach (cooked), rhubarb, beets, sweet potatoes, and Icelandic chard. ?Peanuts. ?Potato chips, fijian fries, and baked potatoes with skin on. ?Nuts and nut products. ?Chocolate. If you regularly take a diuretic medicine, make sure to eat at least 1 or 2 servings of fruits or vegetables that are high in potassium each day. These include: ?Avocado. ?Banana. ?[place], prune, carrot, or tomato juice. ?Baked potato. [...] magnesium, fish oil, or vitamin B6. Take jdxf-bhz-ibqnueh and prescription medicines only as told by [...] Casseroles. Pizza. Lasagna. Frozen meals. Potato chips. Comoran fries. The items listed above may not [...] provider. Document Revised: 05/17/2022 Document Reviewed: 05/17/2022 [employer] Patient Education 2022 [employer]. Follow Up Care 01/29/2023 14:42:34 With:SHAWN COOK, Viral Catalan, URL Address: [address] [place] [phone]- When: Unknown Comments:Schedule stone procedure [facility] 01-22-2024 Evaluation note* Encounter Date Diagnosis Assessment Notes Treatment Notes Treatment Clinical Notes Feb, Adult attention deficit disorder (ICD-10 - F98.8) uiu Other 01-05-2024 Evaluation note* Encounter Date Diagnosis Assessment Notes Treatment Notes Treatment Clinical Notes Feb, Chronic GERD (ICD-10 - K21.9) uiu Other 01-04-2024 Evaluation note* Encounter Date Diagnosis Assessment Notes Treatment Notes Treatment Clinical Notes Feb, Essential (primary) hypertension (ICD-10 - I10) [facility] Other 12-12-2023 Evaluation note* Encounter Date Diagnosis [...] in the reasonable future. Notes continued hematuria. [facility] Other 09-29-2023 Evaluation note* Encounter Date Diagnosis Assessment Notes Treatment Notes Treatment Clinical Notes Oct, Adult attention deficit disorder (ICD-10 - F98.8) uiu Other 05-31-2023 Evaluation note* Encounter Date Diagnosis [...] we will refer her to a opthomologist [facility] uiu Other 05-08-2023 Evaluation note* Encounter Date Diagnosis Assessment Notes Treatment Notes Treatment Clinical Notes June, Homeless family (ICD-10 - Z59.00) Note provided. States she needs this to get help with housing through [facility]. uiu Other 12-23-2021 Evaluation note* Encounter Date Diagnosis [...] writting by [facility] document. uiu Other Evaluation + Plan note Future Appointments Appointment Date:03/29/2023 10:30:00 AM Scheduled Provider: Location:[facility] Appointment Type:Surgical PAT FT Appointment Date:04/18/2023 09:30:00 AM Scheduled Provider: Location:[facility] Plan note Future Appointments Appointment Date:04/18/2023 09:30:00 AM Scheduled Provider: Location:[facility] Future Appointments Appointment Date:06/13/2023 11:15:00 AM Scheduled Provider: Location:[facility] Appointment Type:Surgery FT Future Scheduled Tests Radiology* XR Abdomen 1 [facility]19[facility]23 [facility] Future Appointments Appointment Date:06/07/2023 12:30:00 PM Scheduled Provider: Location:[facility] Appointment Type:Surgical PAT FT Appointment Date:06/13/2023 11:15:00 AM Scheduled Provider: Location:[facility] Appointment Type:Surgery FT Future Scheduled Tests Radiology* XR Abdomen 1 View 04/19/23 [facility] Evaluation + Plan note Future Appointments Appointment Date:11/25/2024 03:15:00 PM Scheduled Provider:Viral CLAROS MD Location:[facility] Appointment Type:URO Office Visit Future Scheduled Tests Radiology* XR Abdomen 1 View 04/19/23 [facility] Evaluation noteNo InformationNoDepartment of [facility] Other Evaluation note* Diagnosis Well woman exam with routine gynecological exam Routine gynecological examination [facility] Diagnosis Onset Date Resolution Status Essential (primary) hypertension acute Migraine acute [facility] Work Phone: Evaluation noteNo assessment information available [facility] Work Phone: Evaluation note* Diagnosis Onset Date Resolution Status Bronchitis acute [facility] Work Phone: History general Narrative - Reported* Type Description Date Surgical History ADENOIDECTOMY Surgical History TONSILLECTOMY Hospitalization History SEE SURGICAL HX [facility] Other Hisgjbi general Narrative - Reported* Type Description Date Medical History Adult attention deficit disorder Medical History Lumbar pain Medical History Left flank discomfort Medical History Syncope and collapse Medical History Menorrhagia Medical History Kidney stone Medical History Anxiety and depression Medical History GERD (gastroesophageal reflux di sease) Surgical History ADENOIDECTOMY Surgical History TONSILLECTOMY Hospitalization History SEE SURGICAL HX [facility] Other Hospital course Narrative No data available for this section [facility] [place] [facility] Discharge instructions No data available for this section [facility] No data available for this section [facility] [place] Summary Purpose Family History Relationship Condition Age [...] DATE CREATED AUTHOR AUTHOR'S ORGANIZ ATION 07/04/2023 [facility]IC DATE CREATED AUTHOR AUTHOR'S ORGANIZ ATION 08/15/2023 [facility] DATE CREATED AUTHOR AUTHOR'S ORGANIZ ATION 11/22/2023 [facility] DATE CREATED AUTHOR AUTHOR'S ORGANIZ ATION 05/31/2024 [facility] REASON FOR VISIT (unrecogniz ed section and content) Reason Comments Gynecologic Exam Patient Care team informatio n (unrecognized section and content) Intelligence Clerk Relationship Specialty Start Date End Date Gaye Dill MD [facility] [place] [address] PCP - General Family Medicine 07/19/22 Team [...] 2023 Charlene Nair Attending Provider Active Start: [facility] 2023 Team Status: Inactive Member Role [...] 2024 Team Status: Inactive Member Role Status Dates Gaye Dill MD Primary Care Provide r, Attending Provider Active Start: March 06, 2024 End: March 06, 2024 Intelligence Clerk Relationship Specialty Start Date End Date Gaye Dill MD PCP - General Family Medicine 07/19/22 Goals (unrecognized section and content) Goals may [...] BE BASED ON THE PRIMARY CLINICAL RECORDS. [facility]. provides no warranty or guarantee of the accuracy or completeness of information in this document.
[2024-08-24 14:08] LABS: Age Gdln ACOG Testing Note (.); IGP, rfx Aptima HPV ASCU Note (.)
== END 2024-08-19 15:04 | disposition home or self-care (01) ==
LOC: LAB 15:03
PROVIDERS: Visit Provider Obstetrics & Gynecology
DX: Z01.419 Encounter for gynecological examination (general) (routine) without abnormal findings (principal)
CPT/HCPCS: 88175

== ENCOUNTER 2024-08-27 20:01 | Outpatient (OUT) | payer SELFPAY ==
--- OUTSIDE RECORDS SUMMARY | 2023-06-18 06:00 | XMS_ITS ---
Author Organization The [facility] in [place] Address [address] [place] [address] Care Team Providers Care Quality Engineer Name Role Phone Leticia Young Primary Care Provider Osman Gordon [facility] [phone] REASON FOR VISIT ingrown toenail Encounters Encounter Location Date Provider Diagnosis [facility] (PODIATRY) [address] [place] [address] [place] [address] 06/18/2023 Osman Hurley Plan Of Treatment No Information Progress Notes * Sunshine RYDERDOB:2000 (24 yo F)Acc No.[id number]:06/18/2023 UNLOCKED PROGRESS NOTE New Patient Patient: Sunshine ALVAREZ Provider: Alayna Hurley DPM, MS :2000 A ge:23 Y S ex:Female Date:06/18/2023 Address:[address] [place], [place] [address] Pcp:Leticia Young Subjective: * Chief Complaints: * 1 . Ingrown toenail. * Medical History: Objective: * Vitals: Assessment: Plan: * Treatment: * * Electronic signature of Gilberto Hurley DPM on 08/27/2024 at 08:04 PM EDT Sign off status: Pending Visit Status: N /S N/C (No Show/No Charge) * Provider: Alayna Hurley DPM, MS Date: 06/18/2023 Generated for Printi ng/Faxing/eTransmitting on: 0 08/27/2024 08:04 PM EDT
--- OUTSIDE RECORDS SUMMARY | 2023-10-17 10:20 | XMS_ITS ---
Author Organization [facility] in [place] Address [address] [place] [address] Care Team Providers Care Medical And Health Services Manager Name Role Phone Leticia Young Primary Care Provider Glenny Mendes Unavailable [phone] Allergies Allergen (clinical drug ingredient) Drug/Non Drug [...] Answer Notes Tobacco use: Nonsmoker Vital Signs Temperature 98.6 degrees Fahrenheit 10/17/19 24 Heart Rate 69 /min 10/17/2023 Respiratory Rate 16 /min 10/17/2023 Height 63 in 10/17/2023 Weight 195 lbs 10/17/2023 BMI 34.54 kg/m2 10/17/2023 Encounters Encounter Location Date Provider Diagnosis [facility] (PODIATRY) [address] [place] [address] [place] [address] 10/17/2023 Glenny Ansari Ingrowing nail L60.0 Assessments [...] Notes * Sunshine RYDERDOB:2000 (23 yo F)Acc No.[id number]:10/17/2023 New Patient Patient: Sunshine ALVAREZ Provider: Medhat Ansari PA-C :2000 A ge:23 Y S ex:Female Date:10/17/2023 Address:[address] [place], [place] [id number] Pcp:Leticia Young Check In:02:24 PM ESTCheck O [...] M usculoskeletal: Bone/Joint Symptoms d enies. C long-term Pain d enies.?Leg cramps d enies. N [...] Modifiers: TA * Preventive Medicine: Screenings/Counseling: B [place] ACTION PLAN Above Normal BMI Follow-up D ietary management education, guidance, and counseling F ALL RISK SCREENING Fall Risk Assessment: N o falls in the past year * Follow Up: 2 Weeks * * Sign off status: Completed Visit Status: C HK (Check Out) true * Provider: Medhat Ansari PA-C Date: 0 10/17/2023 Generated for Daniel clarke/Riya/eTransmitting on: 0 08/27/2024 08:04 PM EDT History and Physical Notes * [...]
--- OUTSIDE RECORDS SUMMARY | 2023-10-31 11:20 | XMS_ITS ---
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 (PODIATRY) [address] [place] [address] [place] [address] 10/31/2023 Glenny Ansari Ingrowing nail L60.0 and [...] Notes * Sunshine RYDERDOB:2000 (23 yo F)Acc No.[id number]:10/31/2023 Follow Up Patient: Sunshine ALVAREZ Provider: Medhat Ansari PA-C :2000 A ge:23 Y S ex:Female Date:10/31/2023 Address:[facility] [address] [id number] Pcp:Leticia Young Check In:03:20 PM ESTCheck O [...] M usculoskeletal: Bone/Joint Symptoms d enies. C long term Pain d enies.?Leg cramps d enies. N [...] Procedure Codes: * Preventive Medicine: Screenings/Counseling: B [place] ACTION PLAN Above Normal BMI Follow-up D ietary management education, guidance, and counseling * Follow Up: p rn * * Sign off status: Completed Visit Status: C HK (Check Out) true * Provider: Medhat Ansari PA-C Date: 0 10/31/2023 Generated for Daniel clarke/Faxing/eTransmitting on: 0 08/27/2024 08:04 PM EDT History [...]
--- OUTSIDE RECORDS SUMMARY | 2024-08-19 11:20 | XMS_ITS | Encounter Summary ---
Author Organization [facility] Address [address] [place] [address] Care Team Providers Care Strategic Planning Analyst Name Role Phone Leticia Young MD Primary Care Provider [phone] Reason for Visit * Reason Comments Gynecologic Exam Pt present today for annual visit. Infertility Pt present today to discuss infertility issue. Patient states she has not had a period since May 2024 and has taken tests and all come back negative. Encounter Details Date Type Department Care Team (Late st Contact Info) Description 08/19/2024 11:20 AM EDT Office Visit [facility] [address] [place] [phone] Ramy Gar, DO [address] [place] [address] Well woman exam with routine gynecological exam; [...] 11:36 AM EDT documented in this encounter Progress Notes * Snow Ambrosio, CUT OUT MACHINE OPERATOR - 08/19/2024 11:20 AM EDT Reason for Appointment: Patient ID: Sunshine Lin is a 24 y.o. female who presents for Gynecologic Exam (Pt present today for annual visit.) and Infertility (Pt present today to discuss infertility issue. Patient states shehas not had a period since May 2024 and has taken tests and all come back negative. ) Patient presents today for Annual Exam. MEDICATIONS Current Outpatient Medications Medication Instructions amphetamine-dextroamphetamine XR (Adderall XR) 25 MG 24 hr capsule Every 24 hours famotidine (PEPCID) 20 mg, Oral, Nightly labetalol (NORMODYNE) 100 mg, Oral, 2 times daily SUMAtriptan (Imitrex) 100 MG tablet topiramate (Topamax) 25 MG tablet ALLERGIES Allergies Allergen Reactions Codeine Hives, Other and Rash Other Reaction(s): Hyperactivity Other Reaction(s): Unknown PROBLEMS Active Ambulatory Problems Diagnosis Date Noted Adult attention deficit disorder 07/27/2022 Atypical chest pain 02/01/2022 Dizziness 02/01/2022 CELAYA (dyspnea on exertion) 02/01/2022 Abdominal pain 07/27/2022 Gastroesophageal reflux disease 07/27/2022 Impacted cerumen 07/27/2022 Menorrhagia 07/27/2022 Kidney stone 07/27/2022 Mixed anxiety and depressive disorder 07/27/2022 Other specified related conditions, unspecified trimester ([facility]) 07/27/2022 Palpitations 02/01/2022 Pelvic and perineal pain 07/27/2022 Syncope and collapse 07/27/2022 Vaginal discharge 07/27/2022 Encounter for biopsy 07/27/2022 Migraine 07/02/2023 Resolved Ambulatory Problems Diagnosis Date Noted No Resolved Ambulatory Problems Past Medical History: Diagnosis Date Abdominal discomfort in left flank Anxiety and depression BMI 32.0-32.9,adult Ceruminosis, bilateral Depot contraception Encounter for Depo-Provera contraception Flank pain GERD (gastroesophageal reflux disease) Hypertension Insect bite (nonvenomous) of abdominal wall, initial encounter Negative test Pelvic cramping Rh negative state in antepartum period ([facility]) Surveillance for control, intrauterine device HISTORY PAST MEDICAL HISTORY SOCIAL HISTORY Past Medical History: Diagnosis Date Abdominal discomfort in left flank Adult attention deficit disorder Anxiety and depression BMI 32.0-32.9,adult Ceruminosis, bilateral Depot contraception Encounter for Depo-Provera contraception Flank pain GERD (gastroesophageal reflux disease) Hypertension Insect bite (nonvenomous) of abdominal wall, initial encounter Kidney stone Menorrhagia Negative test Pelvic cramping Rh negative state in antepartum period ([facility]) Surveillance for control, intrauterine device Syncope and collapse Vaginal discharge Social History Tobacco Use Smoking status: Never Smokeless tobacco: Never Substance Use Topics Alcohol use: Never Drug use: Never FAMILY HISTORY Family History Problem Relation Name Age of Onset Hypertension Mother Depression Mother Migraines Mother Hypertension Maternal Grandmother Diabetes Maternal Grandmother Diabetes Paternal Grandmother SURGICAL HISTORY Past Surgical History: Procedure Laterality Date LITHOTRIPSY MT TONSILLECTOMY & ADENOIDECTOMY <AGE 14 WISDOM TOOTH EXTRACTION REVIEW OF SYSTEMS Review of Systems: Review of Systems Constitutional: Negative. HENT: Negative. Eyes: Negative. Respiratory: Negative. Cardiovascular: Negative. Gastrointestinal: Negative. Genitourinary: Negative. Musculoskeletal: Negative. Skin: Negative. Neurological: Negative. All other systems reviewed and are negative. Hematological: Negative. Endocrine: Negative. Allergic/Immunologic: Negative. OBJECTIVE Objective: Physical Exam Constitutional: Appearance: Normal appearance. She is well-developed. Genitourinary: Vulva normal. Breasts: Breasts are soft. Right: Normal. Left: Normal. Cardiovascular: Rate and Rhythm: Normal rate and [...] nursing note reviewed. Exam conducted with a noc technician present. Vitals: Estimated body mass index is 39.33 kg/m?? as calculated from the following: Height as of this encounter: 5' 3 . Weight as of this encounter: 222 lb. BP: 132/80 No LMP recorded (lmp unknown). (Menstrual status: No Periods). ASSESSMENT & PLAN ICD-10-CM 1. Well woman exam with routine gynecological exam Z01.419 Pap Smear POCT urinalysis dipstick manually resulted 2. Female infertility N97.9 POCT , urine manually resulted 3. Amenorrhea N91.2 POCT , urine manually resulted Orders Placed This Encounter Procedures POCT , urine manually resulted POCT urinalysis dipstick manually resulted Annual Wellness Exam: Patient presents today for routine annual exam. Patient states she has complaints of no periods, ptgiven labs and ultrasound orders to have obtained. Pt has gained weight recently, and is going to try to conceivePt to return in 4 weeks to discuss/review labs and ultrasound results. Patients vitals were reviewed and within normal limits. Growth and development is noted to be appropriate for age. Menstrual history is noted to be irregular with concerns reported. No mental health concerns was expressed. Pap Smear: Speculum was inserted into the vagina and pap was obtained without difficulty. No HPV testing was performed per age guideline. Patient was advised that pap results could take anywhere from 7 to 10 days to receive and our office will reach out to the patient with those once we have them. Patient canalso view results via [facility]. I reinforced importance of condom use for STI prevention. Patient declined cultures to be performed with today's visit. Breast Exam: Upon examination, clinical breast exam was noted to be normal. Patient was counseled on breast self-awareness, including the importance of knowing what is normal for her own breasts and promptly reporting any changes such as new lumps, skin dimpling, nipple discharge, or pain. Screening mammogram recommended annually beginning at age 40 or earlier if risk factors are present. Discussed signs and symptoms of breast cancer and when to seek medical attention. Answered all patient questions. Contraceptive Counseling (if applicable): Patient is currently using no control at this time as a form of contraceptive. Patient does not desire control at this time. Follow Up: Pt to return in 4 weeks to review labs and ultrasound Patient is to return to our office in one year for annual exam unless needed otherwise. Documented by Snow Ambrosio LPN on behalf of: Ramy Gar DO documented in this encounter Plan of Treatment Upcoming Encounters Date Type Department Care Team (Late st Contact Info) Description 09/15/2024 10:50 AM EDT Office Visit [facility] [address] [place] [place] [phone] Ramy Gar, DO [address] [place] [address] Scheduled Orders Name Type Priority Associated Diagnoses [...] UA Clear Glucose, UA Negative Negative - 1999(110) ++++ mg/dL Bilirubin, UA Positive Negative - 4(70) +++ mg/dL Comment:small Ketones, UA Positive Negative - 160(16) ++++ mg/dL Comment:trace Spec Grav, UA 1.025 1 - 1.03 Blood, UA Positive Negative - 50 Mo/mcL Comment:trace pH, UA 6.0 5 - 9 Protein, UA Positive Negative - 1999(20) ++++ mg/dL Comment:30 Urobilinogen, UA 0.2 0.2 [...] ovaries documented in this encounter Care Teams Strategic Planning Analyst Relationship Specialty Start Date End Date Leticia Young MD [address] [place] [address] PCP - General Family Medicine 07/19/22 documented as of this encounter
--- NOTE | 2024-08-27 | US_ITS ---
[place] [id number] Patient Name: ABHI RYDER MRN: [id number] date: 2000 Sex: F Assigned Patient Location: US Current Patient Location: US Accession/Order Number: [id number] Exam Date: 08/27/2024 23:46 Report Date: 08/27/2024 23:49 At the request of: HARDY HOLGUIN DO Procedure: US pelvis w/ transvaginal Transabdominal transvaginal pelvic ultrasound INDICATION: PCOS COMPARISON: None FINDINGS: Anteverted uterus measures 6.5 x 2.6 x 8.1 cm Endometrial thickness 3 mm, normal. Right left ovaries unremarkable size 2.6 x 2.2 x 1.8 cm and 3.3 x 1.8 x 2.8 cm in size respectively. US/US pelvis w/ transvaginal IMPRESSION: Unremarkable/physiologic findings. Impression dictated by: Darnell Sterling M.D. 08/27/2024 11:49 PM Dictation Location: [place] [address] Electronically authenticated by: [id number] Y Date: 08/27/2024 23:49
--- OUTSIDE RECORDS SUMMARY | 2024-08-27 20:04 | XMS_ITS | Clinical Summary ---
Author Organization [facility] Address [address] [place] [address] Care Team Providers Care Electric Sign Assembler Name Role Phone Leticia Young MD Primary Care Provider [phone] Allergies Active Allergy Reactions Criticality Noted Date [...] Other specified re lated conditions, unspecified trimester ([facility]) 07/27/2022 Pelvic and perineal pain 07/27/2022 Syncope [...] Encounters Date Type Department Care Team Description 08/26/2024 Orders Only [facility] [address] [place] [address] Alyson Antonio LPN 08/19/2024 11:20 AM EDT Office Visit [facility] [address] [place] [address] Ramy Gar, DO Well woman exam with routine gynecological exam; Female infertility; Amenorrhea; PCOS (polycystic ovarian syndrome) 08/19/2024 Clinisync Result Encounter [facility] External Department Unsolicited Ramy Gar, 08/19/2024 Bamboo flowsheet [facility] [address] [place] [address] Ramy Gar, DO 06/18/2024 Telephone [facility] [address] [place] [address] Charlotte Saravia MA from Last 3 Months [...] 09/15/2024 10:50 AM EDT Office Visit [facility] OB [address] [place] [address] Ramy Gar, [address] [place] [address] Procedures Procedure Name Priority Date/Time Associated Diagnosis Comments ALL DEHYDROEPIANDROSTERONE Routine 08/19 12:26 PM EDT [facility] PROLACTIN Routine 08/19/2024 12:26 PM EDT POCT URINALYSIS DIPSTICK Routine 025 11:49 AM EDT Well woman exam with routine gynecological exam POCT , URINE Routine 08/19/2024 11:49 AM EDT Female infertility Amenorrhea IGP,APTIMA HPV,AGE GDLN Routine 08/20/19 11:31 AM EDT PAP SMEAR Routine 08/19/2024 12:00 AM EDT from Last 3 Months Results * [facility] PROLACTIN (08/19/2024 12:26 PM EDT) [facility] [address] PROLACTIN 9.9 4.8 - 33.4 ng/mL [facility] Comment: Performed at: [address] [id number] Sewing Techniques Demonstrator: Walter Gilliland PhD, Phone: [phone] 08/19/2024 12:2 6 PM EDT 08/19/2024 12:37 PM EDT Narrative CLINISYNC - 08/20/2024 8:08 AM EDT [facility] Cong DO CLINISYNC Final Result Performing Organization Address [facility]/ZIP Co de Phone Number [facility] * ALL DEHYDROEPIANDROSTERONE (08/19/2024 12:26 PM EDT) [facility] [address] DHEA, SERUM 333 31 - 701 ng/dL [facility] Comment: This test was developed and its performance characteristics determined by [facility]. It has not been cleared or approved by the Food and Drug Administration. Performed at: [address] [id number] Sewing Techniques Demonstrator: Angel Ackerman MD, Phone: [phone] 08/19/2024 12:2 6 PM EDT 08/19/2024 12:37 PM EDT Narrative CLINISYNC - 08/25/2024 9:08 AM EDT [facility] Cong DO CLINISYNC Final Result Performing Organization Address City/[facility]/ZIP Co de Phone Number [facility] * POCT , urine manually resulted (08/19/2024 11:49 AM EDT) Preg Test, Ur Negative Negative Urine 08/19/2024 11:4 9 AM EDT [facility] POINT OF CARE TEST ENTER/EDIT OR DERABLES [...] Positive Urine 08/19/2024 11:4 9 AM EDT [facility] POINT OF CARE TEST ENTER/EDIT OR DERABLES Final Result * IGP,APTIMA HPV,AGE GDLN (08/19/2024 11:31 AM EDT) Pathologist [facility] AGE GDLN ACOG TESTING Note . [facility] Comment: TESTS RESULT FLAG UNITS REF RANGE LAB Clinician Provided Cytology Information Source.............Cervix;Endocervix No. of containers..01 ThinPrep Vial Age Algo ACOG Nellie... -18 03 FLAG LEGEND: L-Low Normal,H-High Normal,LL-Alert Low,HH-Alert High <-Panic Low,>-Panic High,A-Abnormal,AA-Critical Abnormal Performed at: 01 =[address] [place] [address] Karen [place] MD, IGP, RFX APTIMA HPV ASCU Note . [facility] Comment: TESTS RESULT FLAG UNITS REF RANGE LAB DIAGNOSIS: 02 NEGATIVE FOR INTRAEPITHELIAL LESION OR MALIGNANCY. Specimen adequacy: 02 Satisfactory for evaluation. Endocervical and/or squamous metaplastic cells (endocervical component) are present. Performed by: Faby Watson, Clothes Model ([facility]) . 02 Note: Note 03 The Pap smear is a screening test designed to aid in the detection of premalignant and malignant conditions of the uterine cervix. It is not a diagnostic procedure and should not be used as the sole means of detecting cervical cancer. Both false-positive and false-negative reports do occur. Test Methodology: Note 03 This liquid based ThinPrep(R) pap test was screened with the use of an image guided system. . 02 The HPV DNA reflex criteria were not met with this specimen result therefore, no HPV testing was performed. FLAG LEGEND: L-Low Normal,H-High Normal,LL-Alert Low,HH-Alert High <-Panic Low,>-Panic High,A-Abnormal,AA-Critical Abnormal Performed at: 02 [facility] [place] [facility] [address] [place] [address] Bill Goncalves MD, 03 WB [facility] [address] [address] Karen Dale MD, Performed at: =G - [facility] [address] [id number] Sewing Techniques Demonstrator: Karen Dale MD, Phone: [phone] Performed at: [facility] [address] [address] [place], [place] [id number] Sewing Techniques Demonstrator: Bill Goncalves MD, Phone: [phone] 08/19/2024 11:3 1 AM EDT 08/19/2024 3:05 PM EDT Narrative CLINISYNC - 08/24/2024 2:08 PM EDT BRUSH-SPATULA CERVIX ENDOCERVIX Ramy Cong DO LAB BLOOD ORDERABLES Final Resul t Performing Organization Address [facility]/ZIP Co de Phone Number [facility] * Pap Smear (08/19/2024 12:00 AM EDT) Swab Cervical swab / Unknown Ramy Cong DO LAB CYTOLOGY ORDERABLES Final Re sult Performing Organization Address City/[facility]/ZIP Co de Phone Number EXTERNAL LAB from Last 3 Months Insurance [employer] Care Teams Electric Sign Assembler Relationship Specialty Start Date End Date Leticia Young MD [address] [place] [address] PCP - General Family Medicine 07/19/22
--- OUTSIDE RECORDS SUMMARY | 2024-08-27 20:04 | XMS_ITS | Encounter Summary ---
Author Organization [facility] Address [address] [place] [address] Care Team Providers Care Metal Work Duct Installer Name Role Phone Leticia Young MD Primary Care Provider [phone] Encounter Details Date Type Department Care Team (Late st Contact Info) Description 08/19/2024 Clinisync Result Encounter [facility] External Department Unsolicited Ramy Gar, DO [address] [place] [address] Social History Tobacco Use Types Packs/Day Years [...] 09/15/2024 10:50 AM EDT Office Visit [facility] [address] [place] [id number] Ramy Gar, [address] [place] [address] documented as of this encounter Procedures Procedure Name Priority Date/Time Associated Diagnosis Comments [facility] PROLACTIN Routine 08/19/2024 12:26 PM EDT ALL DEHYDROEPIANDROSTERONE Routine 08/19 12:26 PM EDT IGP,APTIMA HPV,AGE GDLN Routine 08/20/19 11:31 AM EDT documented in this encounter Results * ALL DEHYDROEPIANDROSTERONE (08/19/2024 12:26 PM EDT) DHEA, SERUM 333 31 - 701 ng/dL [facility] Comment: This test was developed and its performance characteristics determined by [facility]. It has not been cleared or approved by the Food and Drug Administration. Performed at: [address] [id number] House Registry Rn: Angel Ackerman MD, Phone: [phone] 08/19/2024 12:2 6 PM EDT 08/19/2024 12:37 PM EDT Narrative CLINISYNC - 08/25/2024 9:08 AM EDT [facility] Cong DO CLINISYNC Final Result Performing Organization Address [facility]/ZIP Co de Phone Number [facility] * [facility]H PROLACTIN (08/19/2024 12:26 PM EDT) Pathologist [facility] PROLACTIN 9.9 4.8 - 33.4 ng/mL [facility] Comment: Performed at: [address] [id number] House Registry Rn: Walter Gilliland PhD, Phone: [phone] 08/19/2024 12:2 6 PM EDT 08/19/2024 12:37 PM EDT Narrative CLINISYNC - 08/20/2024 8:08 AM EDT [facility] Cong DO CLINISYNC Final Result Performing Organization Address City/[facility]/ZIP Co de Phone [facility] * IGP,APTIMA HPV,AGE GDLN (08/19/2024 11:31 AM EDT) Pathologist [facility] AGE GDLN ACOG TESTING Note . [facility] Comment: TESTS RESULT FLAG UNITS REF RANGE LAB Clinician Provided Cytology Information Source.............Cervix;Endocervix No. of containers..01 ThinPrep Vial Age Slim Ballard... FLAG LEGEND: L-Low Normal,H-High Normal,LL-Alert Low,HH-Alert High <-Panic Low,>-Panic High,A-Abnormal,AA-Critical Abnormal Performed at: 01 =G [facility] [address] Karen Dale MD, IGP, RFX APTIMA HPV ASCU Note . [facility] Comment: TESTS RESULT FLAG UNITS REF RANGE LAB DIAGNOSIS: 02 NEGATIVE FOR INTRAEPITHELIAL LESION OR MALIGNANCY. Specimen adequacy: 02 Satisfactory for evaluation. Endocervical and/or squamous metaplastic cells (endocervical component) are present. Performed by: 02 Krystal Watson, Steam Finisher ([facility]) . 02 Note: Note 03 The [...] High,A-Abnormal,AA-Critical Abnormal Performed at: 02 [facility] [place] [facility] [address] [place] [address] Bill Goncalves MD, 03 WB [facility] [address] [address] Karen [place] MD, Performed at: =G - [facility] [address] [id number] House Registry Rn: Karen [place] MD, Phone: [phone] Performed at: [facility] - [facility] [place] [facility] [address] [place], [place] [id number] House Registry Rn: Bill Goncalves MD, Phone: [phone] 08/19/2024 11:3 1 AM EDT 08/19/2024 3:05 PM EDT Narrative CLINISYNC - 08/24/2024 2:08 PM EDT BRUSH-SPATULA CERVIX ENDOCERVIX us Ramy Coopero DO LAB BLOOD ORDERABLES Final Resul t CLINISYNC [facility] documented in this encounter Visit Diagnoses Not on filedocumented in this encounter Care Teams Metal Work Duct Installer Relationship Specialty Start Date End Date Leticia Young MD [address] [place] [address] PCP - General Family Medicine 07/19/22 documented as of this encounter
--- OUTSIDE RECORDS SUMMARY | 2024-08-27 20:04 | XMS_ITS | Encounter Summary ---
Author Organization [facility] Address [address] [facility] [place] [address] Care Team Providers Care Ultimate Hoops Scoreboard Operator Name Role Phone Leticia Young MD Primary Care Provider [phone] Encounter Details Date Type Department Care Team (Late Contact Info) Description 08/26/2024 Orders Only [facility] [address] [facility] [address] [place] [place] [address] Alyson Antonio LPN [address] [place] [address] Social History Tobacco Use Types Packs/Day Years [...] 09/15/2024 10:50 AM EDT Office Visit [facility] [address] [facility] [place] [address] Ramy Gar [address] [place] [address] documented as of this encounter Procedures Procedure Name Priority Date/Time Associated Diagnosis Comments PAP SMEAR Routine 08/19/2024 12:00 AM EDT documented in this encounter Results * Pap Smear (08/19/2024 12:00 AM EDT) Swab Cervical swab / Unknown us Ramy Cong DO LAB CYTOLOGY ORDERABLES Final Re sult EXTERNAL LAB documented in this encounter Visit Diagnoses Not on filedocumented in this encounter Care Teams Ultimate Hoops Scoreboard Operator Relationship Specialty Start Date End Date Leticia Young MD [address] [place] [address] PCP - General Family Medicine 07/19/22 documented as of this encounter
--- OUTSIDE RECORDS SUMMARY | 2024-08-27 20:04 | XMS_ITS | Clinical Summary ---
Author Organization [facility] Address [address] [place] [address] Care Team Providers Care Producer Arborist Manager Name Role Phone Leticia Young MD Primary Care Provider [phone] Allergies Active Allergy Reactions Criticality Noted Date [...] Insurance [employer] Care Teams Producer Arborist Manager Relationship Specialty Start Date End Date Leticia Young MD [address] [facility] PCP - General 02/01/22
--- OUTSIDE RECORDS SUMMARY | 2024-08-27 20:05 | XMS_ITS | Clinical Summary ---
Author Organization [facility] Address [id number] [address] [place] [address] Care Team Providers Care Debt Counselor Name Role Phone Leticia Young MD Primary Care Provider [phone] Allergies Active Allergy Reactions Criticality Noted Date [...] 05/30/2024 9:55 PM EDT Emergency [facility] [address] [place] [address] Ekta Hanks DO Vaginal bleeding [...] Negative Negative^N egative 05/30/2024 9:31 PM EDT [facility] Urine / Unknown 05/30/2024 9 :29 PM EDT 05/30/2024 9:31 PM EDT us Ekta Hanks DO POINT OF CARE TEST ORDERABLE S Final Result [address] [place] [address] * (ABNORMAL) POCT Nursing Urine Macroscopic UA (05/30/2024 9:27 PM EDT) Specific gravity NISREEN 1.020 1.003 - 1.035 05/30/2024 9:25 PM EDT [facility] Leukocyte esterase NISREEN Negative Negative^ Negative 05/30/2024 9:25 PM EDT [facility] Nitrite NISREEN Negative Negative^ Negative 05/30/2024 9:25 PM EDT [facility] Ph 5.5 5.0 - 8.5 05/30/2024 9:25 PM EDT [facility] Protein NISREEN Negative Negative^ Negative mg/dL 05/30/2024 9:25 PM EDT [facility] Urine glucose NISREEN Negative Negative^ Negative mg/dL 05/30/2024 9:25 PM EDT [facility] Ketones NISREEN Negative Negative^ Negative mg/dL 05/30/2024 9:25 PM EDT [facility] Urobilinogen NISREEN 0.2 <1.1 eu/dL 05/30/2024 9:25 PM EDT [facility] Bilirubin NISREEN Negative Negative^ Negative 05/30/2024 9:25 PM EDT [facility] Hemoglobin NISREEN Small(A) Negative^ Negative 05/30/2024 9:25 PM EDT [facility] Urine / Unknown 05/30/2024 9 :27 PM EDT 05/30/2024 9:25 PM EDT us Ekta Haroon ArguelloJones DO POINT OF CARE TEST ORDERABLE S Final Result [facility] [address] [facility] [place] [address] from Last 3 Months Insurance [employer] Member Subscriber Plan / Payer (Ef fective 2020-Present) Name:LinSunshine Relation to Subscriber:Child Name:Brigido Roque Date of :1980 (Home) Address: [facility] [place] [address] Payer ID:Not on file Type:Not on file Address: [facility] [address] [place] [id number] [employer] MEDICAID Care Teams Debt Counselor Relationship Specialty Start Date End Date Leticia Young MD [address] [place] [address] PCP - General Family Medicine 05/30/24
--- OUTSIDE RECORDS SUMMARY | 2024-08-27 20:05 | XMS_ITS | Encounter Summary ---
Author Organization [facility] Address [address] [facility] [place] [address] Care Team Providers Care Paint Brush Maker Name Role Phone Leticia Young MD Primary Care Provider [phone] Encounter Details Date Type Department Care Team (Late Contact Info) Description 08/19/2024 Bamboo flowsheet [facility] [address] [place] [address] [place] [id number] Social History Tobacco Use Types Packs/Day Years [...] 09/15/2024 10:50 AM EDT Office Visit [facility] [address] [address] [place] [address] Ramy Gar, [address] [place] [phone] documented as of this encounter Visit Diagnoses Not on filedocumented in this encounter Care Teams Paint Brush Maker Relationship Specialty Start Date End Date Leticia Young MD [address] [facility] [place] [phone] PCP - General Family Medicine 07/19/22 documented as of this encounter
--- OUTSIDE RECORDS SUMMARY | 2024-08-27 20:05 | XMS_ITS | Clinical Summary ---
Author Organization [facility] Address [address] [place] [address] Care Team Providers Care Research Software Engineer Name Role Phone Unavailable Primary Care Provider [...]
--- OUTSIDE RECORDS SUMMARY | 2024-08-27 20:05 | XMS_ITS | CCD ---
Author Organization [facility] CliniSyde Care Team Providers Care Fmd Teacher Name Role Phone Columba Fernandes Unavailable Gaye Dill Unavailable GAYE DILL Primary Care Unavailable PREET, DR SIMRAN Alexander Consulting Unavailabl e PREET, DR SIMRAN Alexander Attending Unavailabl e PREET, DR SIMRAN Alexander Admitting Unavailabl e GAYE DILL Primary Care Unavailable JOSE ., DR GAIL Mcwilliams Attending Unavailable JOSE ., DR GAIL Mcwilliams Admitting Unavailable RL RAMIREZ Consulting Unavailable GAYE DILL Admitting Unavailable GAYE DILL Primary Care Unavailable GAYE DILL Consulting Unavailable GAYE DILL Attending Unavailable GAYE DILL Primary Care Physician Lexis Moura Unavailable Unavailable Gaye Dill MD Primary Care Provider [phone] VELMA CHAND Attending Unavailable COOK, Viral P Attending Unavailable COOK, Viral P Attending Unavailable COOK, Viral P Attending Unavailable COOK, Viral P Attending Unavailable COOK, Viral P Admitting Unavailable COOK, Viral P Attending Unavailable COOK, Viral P Referring Unavailable COOK, Viral P Admitting Unavailable COOK, Viral P Attending Unavailable COOK, Viral P Referring Unavailable HaLawson lima H Attending Unavailable COOK, Viral P Admitting Unavailable COOK, Viral P Attending Unavailable COOK, Viral P Referring Unavailable COOK, Viral P Attending Unavailable GAYE DILL Primary Care Unavailable LUCA SERNA Attending Unavailable COOK, VIRAL P Referring Unavailable GAYE DILL Primary Care Unavailable GAYE DILL Primary Care Unavailable VENKAT MCCRAY Attending Unavailable Gaye Dill MD Primary Care Provider [phone] Gaye Dill MD Primary Care Provider RAMY GAR Attending Unavailable Allergies Allergy Classification Reported Allergen(s) Allergy Type Date of Onset Reaction(s) Facility (20 sources) Codeine; Translations: [codeine] Drug Allergy 9 Unknown (qualifier value), Hives, Other, Eruption of skin (disorder), Hyperactive behavior (finding), Rash [facility] (1 source) Codeine Drug Allergy 5 [facility] Repository (1 source) patient allergy list reviewed by nurse or physicia Propensity to adverse reactions 8 Comment:Done [employer] Other (1 source) Allergies Reconciled Propensity to adverse reactions Unknown [facility] Other Medications Current Medications Medication Drug Class(es) [...] for 2 day(s), 5 tab(s), Refill(s) 0, [facility]acy #[id number], 163.5, cm, 06/13/23 10:01:00 EDT, Height/Length [...] day(s), # 10 cap(s), Refills(s) 0, Pharmacy: [facility]/pharmacy #[id number], 165, cm, 04/01/23 6:28:00 EST, Height/Length Dosing, 94.7, kg, 04/01/23 6:28:00 EST, Weight Dosing Start Date: 04/18/23 Stop Date: 04/23/23 Status: Ordered ciprofloxacin 500 mg oral tablet (2 sources) Quinolone Antimicrobial Star t: 05-20 take 1 tablet by mouth twice daily Cipro 500 mg Tab 500 mg = 1 tab(s), Oral, BID, # 10 tab(s), Refills(s) 0, Pharmacy: [facility]/pharmacy #[id number], 163.5, cm, 06/13/23 10:01:00 EDT, Height/Length Dosing, 87.1, kg, 06/13/23 10:01:00 EDT, Weight Dosing Start Date: 06/13/23 Status: Ordered famotidine 20 mg oral tablet (20 sources) Histamine-2 Receptor Antagonist Star t: 01-18 End: 11-19 take 1 tablet by mouth at bedtime famotidine (Pepcid) 20 MG tablet Take 20 mg by mouth at bedtime 02/24/2023 Active labetalol hydrochloride 100 mg oral tablet (3 sources) beta-Adrenergic Steven Star t: 06-18 take 1 tablet by mouth in the morning labetalol (Normodyne) 100 MG tablet Indications: Secondary hypertension Take 1 tablet (100 mg) by mouth in the morning and 1 tablet (100 mg) before bedtime. 60 tablet 11 07/02/2023 Active medroxyPROGESTERone 150 mg/mL IM Susp (7 [...] day(s), # 60 tab(s), Refills(s) 1, Pharmacy: [facility]/pharmacy #[id number], 165, cm, 04/01/23 6:28:00 EST, Height/Length [...] for 10 day(s), 20 tab(s), Refill(s) 0, [facility]/pharmacy #[id number], 165, cm, 04/01/23 6:28:00 EST, Height/Length Dosing, 94.7, kg, 04/01/23 6:28:00 EST, Weight Dosing Start Date: 05/16/23 Stop Date: 05/26/23 Status: Ordered SUMAtriptan 100 mg oral tablet (15 sources) Serotonin-1b and Serotonin-1d Receptor Agonist Star t: 03-2 1-20 24 SUMAtriptan (Imitrex) 100 MG tablet 05/09/2023 Active Start: 04-23-2023 End: 03-06-2024 take 4 tablets [...] Daily, # 30 cap(s), Refills(s) 0, Pharmacy: [facility]/pharmacy #[id number], 165, cm, 04/01/23 6:28:00 EST, Height/Length [...] Apr, Active topiramate 25 mg oral tablet (6 sources) Start: 05-09-2023 topiramate (Topamax) 25 MG tablet 05/09/2023 Active Completed/Discontinued Medications Medication Drug Class(es) Dates Sig [...] Start: 04-10-2022 take 1 capsule by mo [facility] every twenty-four hours Adderall XR 25 [...] 12, 2023 11:00pm March 06, 2024 10:10am ibuprofen 800 mg oral tablet (16 sources) [...] 1 ml medroxyPROGESTERone acetate 150 mg/ml injection (5 sources) Progestin Start: 07-17-2023 End: 08-19-2024 inject 1 mL by intramuscular injection every 30 days medroxyPROGESTERone (Depo-Provera) 150 MG/ML injection Indications: Encounter for contraceptive management, unspecified INJECT 1 ML INTRAMUSCULAR EVERY 30 DAYS 1 mL 3 07/17/2023 08/19/2024 Discontinued (Therapy completed) Start: 01-18-2024 medroxyPROGEST ERone (Depo-Provera) 150 MG/ML suspension prefilled syringe injection syringe Indications: Encounter for surveillance of injectable contraceptive 1 mL Intramuscular 0.9 mL 1 03/07/2023 Active 24 hr metoprolol succinate 25 mg [...] Start: 12-07-2022 take 1 capsule by mo uth once daily Omeprazole 20 MG 1 capsule [...] Essential hypertension; Translations: [Essential (primary) hypertension] Chronic Female infertility (2 sources) Female infertility; Translations: [Female infertility, unspecified] 08-19-2024 Chronic Genitourinary symptoms and ill-defined conditions (5 sources) Dysuria; Translations: [Dysuria] Onset: 05-20-2023 Resolved: 11-17-2020 Episodic Headache; including migraine (15 sources) Migraine with aura; Translations: [Migraine with [...] current use of drug therapy; Translations: [Other ferry terminal agent (current) drug therapy] Episodic Other circulatory disease [...] diseases complicating , unspecified trimester] Episodic Other endocrine disorders (2 sources) Polycystic ovary syndrome; Translations: [Polycystic ovarian syndrome] 08-19-2024 Chronic Other female genital disorders (1 source) Abnormal [...] abdominal pain] Onset: 02-28-2017 Episodic Administrative/social admission (7 sources) Stress; Translations: [Other psychological or physical stress, not elsewhere classified] Onset: 02-28-2017 07-27-2022 Episodic Calculus of urinary tract (20 sources) Kidney stone; Translations: [Calculus of kidney] Onset: 07-27-2022 Episodic Cardiac dysrhythmias (6 sources) Palpitations; Translations: [Palpitations] Onset: 02-01-2022 07-27-2022 Episodic Conditions associated with dizziness or vertigo (7 sources) Dizziness and giddiness; Translations: [Dizziness and [...] unspecified] Resolved: 08-20-2018 Episodic Nonspecific chest pain (6 sources) Atypical chest pain; Translations: [Other chest pain] Onset: 02-01-2022 07-27-2022 Episodic Other complications of (1 source) Complication occurring during ; Translations: [Other specified related conditions, second trimester] Resolved: 10-01-2018 Episodic Other complications of (6 sources) Disorder of ; Translations: [Other specified related conditions, unspecified trimester] Onset: 07-27-2022 07-27-2022 Episodic Other connective tissue disease (1 source) Pain in forearm; Translations: [Pain in joint, forearm] Onset: 08-23-2017 Episodic Other ear and sense organ disorders (7 sources) Impacted cerumen; Translations: [Impacted cerumen, bilateral] Onset: 07-27-2022 07-27-2022 Episodic Other female genital disorders (1 source) Abnormal uterine bleeding; Translations: [Abnormal uterine and vaginal bleeding, unspecified] Resolved: 11-17-2020 Chronic Other female genital disorders (6 sources) Vaginal discharge; Translations: [Other specified noninflammatory disorders of vagina] Onset: 07-27-2022 07-27-2022 Episodic Other lower respiratory disease (6 sources) Dyspnea on exertion; Translations: [Other forms [...] condition classified elsewhere] Onset: 09-19-2017 Episodic Syncope (17 sources) Syncope and collapse; Translations: [Syncope and collapse] Onset: 07-27-2022 07-27-2022 Episodic Unclassified (1 source) Homeless family Z59.00 Unclassified (1 source) Vaccine product containing only acellular Bordetella pertussis and Clostridium tetani and Corynebacterium diphtheriae antigens (medicinal product); Translations: [Qzdhqrmtrv-qffqqld-k ertussis, combined [DTP] [DtaP]] Onset: 11-02-2014 Unclassified (1 source) Other specified indication for care or intervention related to labor and delivery, unspecified as to episode of care; Translations: [Other specified indication for care or intervention related to labor and delivery, unspecified as to episode of care] Results Test Name Value Interpretation Reference Range Facility [facility] PROLACTINon 08-20-2024 PROLACTIN 9.9 ng/mL 4.8 - 33.4 ng/mL [facility] Comment on above: Performed at: [address] [id number] [employer] Maker: Walter Gilliland PhD, Phone: [phone] [facility] ( test) Ql (U)o n 08-19-2024 Interpretation and review of laboratory results Normal [facility] Preg Test, Ur Negative Negative [facility] Urinalysis macro (dipstick) panel (U)on 08-19-2024 Bilirubin, UA Positive Negative - 4(70) +++ mg/dL [facility] Comment on above: small Blood, UA Positive Negative - 50 Mo/mcL [facility] Comment on above: trace Clarity, UA Clear [facility] Color, UA Yellow [facility] Glucose, UA Negative Negative - 2000(110) ++++ mg/dL [facility] Interpretation and review of laboratory results Abnormal [facility] Ketones, UA Positive Negative - 160(16) ++++ mg/dL [facility] Comment on above: trace Leukocytes, UA Negative Negative - 500+++ Mitchell/mcL [facility] Nitrite, UA Negative Negative - Positive [facility] pH, UA 6 5 - 9 [facility] Protein, UA Positive Negative - 2000(20) ++++ mg/dL [facility] Comment on above: 30 Spec Grav, UA 1.025 1 - 1.03 [facility] Urobilinogen, UA 0.2 0.2 - 12 mg/dL [facility] HCG ( test) Ql (U)o n 05-30-2024 Beta HCG ( test) Ql (U) Negative Normal [facility] Comment on above: Performed By: #### 2 [id number] #### [facility] ([id number]) [address] [place] [address], [place] [address] URN MACROSCOPIC NURon 2024 BILIRUBIN NISREEN Negative Normal [facility] Comment on above: Performed By: #### N UM #### [facility] ([id number]) [address] [place] [address] BLOOD/HGB NISREEN Small Abnormal [facility] Comment on above: Performed By: #### N UM #### [facility] ([id number]) [address] [place] [address] GLUCOSE NISREEN Negative Normal [facility] Comment on above: Performed By: #### N UM #### [facility] ([id number]) [address] [place] [address] KETONES NISREEN Negative Normal NEG [facility] Comment on above: Performed By: #### N UM #### [facility] ([id number]) [address] [place] [address] [place] [address] LEUKOCYTE ESTERASE NISREEN Negative Normal NEG [facility] Comment on above: Performed By: #### N UM #### [facility] ([id number]) [address] [place] [address] NITRITE NISREEN Negative Normal NEG [facility] Comment on above: Performed By: #### N UM #### [facility] ([id number]) [address] [place] [address] PH NISREEN 5.5 Normal 5.0-8.5 [facility] Comment on above: Performed By: #### N UM #### [facility] ([id number]) [address] [place] [address] PROTEIN NISREEN Negative Normal NEG [facility] Comment on above: Performed By: #### N UM #### [facility] ([id number]) [address] [place] [address] [place] [address] SPECIFIC GRAVITY NISREEN 1.020 Normal 1.003-1.035 [facility] Comment on above: Performed By: #### N UM #### [facility] ([id number]) [address] [place] [address] UROBILINOGEN NISREEN 0.2 eu/dL Normal <1.1 [facility] Comment on above: Performed By: #### N UM #### [facility] ([id number]) [address] [place] [address] Urology Office/Clinic Noteon 11-20-2023 Urology Office/Clinic Note [...] with voice recognition artificial intelligence software, specifically [email or web address].nu, AcceloWeb and or Arboribus. Substitutions may have occurred due to the inherent limitations of voice recognition and artificial intelligence software. 1. Kidney stone (N20.0: Calculus of kidney) Pt was seen at [facility] on 01/22/23 due to left sided [...] right interpolar renal calculus. Pt presented to [facility] 05/20/23 with hematuria. S/p cysto, L [...] Contact Information Viral CLAROS MD, URL [address] [place] [phone]- Additional Instructions: 1 year w/ KUB Patient [...] deficit disorder (more content not included)... Normal [facility] Comment on above: Result Comment: [...] Hurt MD on 11/19/2023 7:43 PM Normal [facility] RAPID STREP SCR NURSINGon S. pyogenes Ag EIA Ql (Throat) Positive Abnormal NEG [facility] Comment on above: Performed By: #### 6 [id number] #### [facility] ([id number]) [address] [facility], [place] [address] SARS/FLU A+B/RSV by NAAT/Mol ecularon 11-04-2023 SARS/FLU [...] operators who are performing tests using either GeneMediaBrix DX or GeneMiromatrix Medicality systems and is limited to laboratories that [...] specimen repeat. Fact Sheet for Healthcare Providers: https://www.fda.gov/ar tressa/283260/download Fact Sheet for Patients: https://www.fda.gov/ar tressa/525998/download Normal [facility] Comment on above: Performed By: #### C OVFLR #### [facility] ([id number]) [address] [place] [address] Coding Summary.on 08-09-2023 Coding Summary. EIBJGxed46BNc6nXj+PG hl YWQ+KH2YWYXhZ93prBCmxQ 6pX1FTSUvAYuqoFFROGIbS GkXuwoVsEJ8ezRLkMGQu IC8+NL1oCDZiGdepnWPlo6 J6dZM1R32zfh9yJYkrrMX0 BGKaIwRcisqwi5lhdQu8HM cuNmluOyBt IVZkkS92ROE1pA58Po45wA WkqHCii0nubCn3ShAcPYVz HOR1tMcoYLoiy4AgQWMtY4 6uuCCbr2T0 IXEdnDvoyGVfKoLlcYR0qT 1nCFspliqta5jducmuNuc4 st93xWOef9R7eWH3G8Aobc P7OKBmvMVr XtntsEMRkB5aqcoyr9oidb nkLpLeZMLhITu6XBn2FNXe vQtqOdDsGP67RHM8HBTfbl EyN9WaHFFr gSbkMgS5x2R2Zm7GW4NIHb tyE9ALOZMHQLdjgPK+PC90 dd70I7BkMshqCpy7YTQiSY G8aBU0xM9i KCKvVTpec9L9wLF0Q1Iyin Siqn2yr2lfIUXlPFbhK49p jTIal5U1HLKlhWG9LRCvtK pyBrZyxV53 Oyc+GXMswZyiw8RwCfyoi3 vql9urgTz0TpuyXHJhgiNm xNmtPZI9v3YiHx1hSFLiwZ C9gKL1fC5z EuUxZhP7KYmdA894HnCiiJ PeQdfbJ41dB2QwvAW+PHRy Dre4RKQytWibVF5uH9TxOQ RpbmctbGVm zFyuXK6aHRFscxwvDHHlcD 6nYZBbS7z4LdLaUdF8CVka Y1UaATLdpfwaBl03dU5aHx VsJfT5XAor M2YnhzC8SMNkjKZmKIvnRO Z6Y34cn2A5JKKfVLJoLIN0 fKE8nH0yzEiafwtnzMKobS sgdmVydGlj ODrrDQxgL023WILnmUldTr NvZGluZyBEYXRlOiAgMDYv MjEvMjAyNDwvdGQ+PHRkIH X4jEmkEKUd pIAjKZztJq2ykAobtMkkPC 4rABYurfzgZCBhaM0tZMDf cPBkkRbbJV0eLGQchywkt9 92DoClJYT9 CWGowHFfI5UgqE5iPqYiKA HrZUWjJ3PcuYDkUQfsM776 LTmvSsX7PRLfhuOoM2YaEO FsaWduOiB0 q4B7Yw8Py4JwufbnR0AstQ AmCdSkHrutNFj4E1JsVwjx dHI+UG27HVVsKN51EQj4PM L3hJkpZVet AUFwE6ChgZ4xRdTbMKNdOV RkOyc+PHRhYmxlIHdpZHRo QDoqSXFeEsFldRpoLC4sZg 9yZGVyLWNv tJhxzTAcEoYnk1woDNKxEN stKX8nlZcbP9MywEP7BOBa t1m3Fh29I06lS4UmsRG+PG QktQP6bZB7 uB0fYePcVoY4DCfnR605Ep AdjBNcOnjni3kkt9nuvYn1 BuD0OXAploNfxEhsTWR5d0 JdIo67M66t IHdpZHRoPSIxNSUiIHZhbG hnqy6yaR2qAl2+PGNvbCB3 pFR7dT3jCaBjQfD3QTywK8 49InRvcCIv Gyqia4ibs5qitXv8TuNbMW MjovFcoNlrRNT4t6UhQu10 X7GvyLtjw4ZrYvn0ye09zX Yzf0X4mCG8 D9MgSGJagbjhbCZuqXgiLG 5gMDKrnitfZVHdmD7vPDYe G4e5LbCgSxK5BMnzB6Tzfz G9DPDqhXOi CQXeaJNFyV0vqonts3opwe dtErEtKSSpXUe0JIx7AAYv bDsaUsEmDZH5YsT0RJE4cA RflK5xgQyu dbpsqH6eXvx+SOK7fCHamK ICXL4oXvxjySC+PHRkIHN0 vPydASkcULUstD6lYZCiP1 v1WsCoRqA6 DBtqO2JpqfH7JHXvlAAuZC RhgZKRcU1jwtmtv3vlpssc BjFwNRJhEMt3LHs2TLRbhC duOiBsZWZ0 YkY5OHL6tQGzhT3yfTjnhx oqcM8rPex+QmlydGggRGF0 UHd4L6OjArb0ROZgeVsqJI 0ncGFkZGlu Av6iqWrgbMjsEW2aEVLefw ccf638KjKuj8ktTVSkqEVw EOzzHZN2T05dj7H0PDUnAM ZoLAE9qSM9 tS7yxEeplonxiDDxpRimps DfpPnkKMhdODmbL840ODBh fZtrQyZeZMx1W5OzCbt1DW YhrWtiBS7l dDSyHSdiMw5wbPzidQhgMH 0tDADzsgixj557XtUdu1rt EFAcuIAlSTbcNOX8U11jb5 P2BFOjYHWx XXR9bAL8lX3kqRlkblihkZ VmdDsgdmVydGljYWwtYWxp I461AUYdrYxxJmTmfQv4P1 NmIbl0AUQt qQzyBX5zxZTfVGfdIf6twS dagLgkEE9xOUVbohczy529 VoGmg8xgIZXqjRLoZEjiOY U7S66on5H4 LLKkQAZtTSE0hZX1tA0kvE lnbjogbGVmdDsgdmVydGlj XXebWAmdP249REHvxNoeOb BhdGllbnQg YLcuKBv6D1PiBygfaHW+PC 26FACuZJ52pDHraYSoy5og tYd4JaDkHFZxCHS9fFufYJ qrn7QwAJIx O72csVKxy8Z2EXKliPotsR KzErXfwTI6wI6lFWmlzbin g3myhtcoHvkob9vzqi23rN 05Q75nDKor ZHRoPSIzMCUiIHZhbGlnbj 1trE0yFu1+FQNmtTE0oYH7 wW9bBJOjFdR9QAmpO188Tg RvcCIvPjxj p8ktn0gjyAy1FxK4AHHzhs YgrTpfFGW5k7GjWg04P91t IHdpZHRoPSIyMCUiIHZhbG lphf5lhT4f Ii8+DKLcsQM6bWL3pA0tSl NkUaE7LLjtO160CoGjlKQj WgucI19xU1RhjZU+PHRyPj s0CZOjkQws LP5ipFSbGSlrZl0hTJR5Xi GnTwLvDGwgW3KpDIXfxxty dlghcLY5KEMeVANkyQ58Ql 9udDogMTBw pKPIpK4hrdxuh1fmvporPq YoRFMyNPq7PEt6YMVthRka GtGqOOS6DaP0ZBA3tZLhjC 1hbGlnbjog eA4uW8KaATJuwlsaEy77bA 8vWeJyLoQ1TMehMln+TEFX G43YSLQKRGsGGNdkNNmacM Q+PHRkIHN0 hZpwOLstRRImoF2iEMVvS3 a6SbKoOyP1ZUarH8VzBEBz sybaZg26yX8cEpKnEdJ6AS xyZ7TnkuA0 LHStsLBqFJmpFGN4J86qc7 H3SNIoYDXvQJS8cBF3nD5c bGlnbjogbGVmdDsgdmVydG ljYWwtYWxp L680FAZtfNijHrJpVkArPg OmWMQ6Q0IoKxq6XRBlrUcc LU0mkODfEJujYf0oaYenbQ ntIS0uZRDd fgifSOJnhN4qGNJqwIStjL qxEM2iQDDitnnwv479WoYa FGV5XRMasADfR5QdvB9sTr AjMDAwMDAw W7KmtQDlXGidO696GHfwYm F1DWUxvqCgG2EeJUBsaGxx ItQ9y3P8Tu6cXADCRGVteh wvdGQ+PHRk XRU6zSliDGucDKSccJ6ePN FvE4g2BwHmNvC2HQdaC1Yc HSMtxbnsTu25bA8mBdVpUe W6ODzpR0Yc fmD1WCXfhVXiHMplQTH4N3 1sz7Z6ZOKqPMFiZSF8tXT6 yB4utRjosupwlEEttBtwvr VydGljYWwt YLtnE796JAZmuDniWdMbbZ FsZTwvdGQ+GEKfRHC9vPgw PZveZPVrgM4rERRcF8c7Co TsDeL3HXoi K9HcQROvezqxSk39zP8sCg TdZhO4IKutE4GabvS5QFEa zPFcGNqeKJN6H39dh5H9QT MwMDAwMDA7 bCX8lW7yuAlajaqyaOCinZ ptzhHfyXcnUHkjPXxiB950 FGHiyPpkSx96nCFmsApapl Y5F3NwDtuh dHI+AS93LKIqTF66nZClgD Gmz6vvyZm8DePzGFZdLJF3 rEwiKXpqw1QgLSXvO28obV Lpp6B3LFYa lXrliUOqUyZueYM7oC4gUH dtubzmc7ocbqouEzmwi5zy lp83iD90U43jSRcwHNZtJV IzMCUiIHZh zRdgtj6swZ2jUl0+PGNvbC F7nOG7xC0hUdNbHcP4MXeq F098NbKynVFnXxzjm4uxn4 eppBr4PcVt MIJhtoSxtKxsFXO4z7UhHv 86R89hZQztQJZtPCJdWVBm WUJsdTpcgq0cbQ7bNs4+PC 2ao8xyah01 qJ30bUV+FCQtEOJ0lUbcTP fmSLFbkB9kUYntGbA6EMBt XkJgsZ53lUJfPPtyWc9yeR ctoMkzYR5v ATQwnzniu843VjOcu3xfHO IxrINoEPwkRFP3D92lh1X8 LYEpEILgRXN7aPF2sP5ltD lnbjogbGVm dDsgdmVydGljYWwtYWxpZ2 33GOMnxEwvNrTdbDRmE9lh htHOSA6uOtzubVZ+PHRkIH R0eVnbFSsb RQNpgT4gASQfY7w1YkZnXu X0OCqyI3QonnM8RGUwkSOr SLLtlPEHtL3eughoo4lzdm ogIzAwMDAw JKd7VVy4TCDpgOlcCdQkYZ M6PjU1DVB7jBVwxX8hfVxb zdbwjJ5tFtb+RklOOjwvdG Q+PHRkIHN0 sKszWEwcWKVhcG2vATCyG9 f7NjKzBuG7ODalH0PtimE9 PUFimWGeKCGwwKOZjG8uvx ssx4ivjxpc IbZtXGPhMJk0CPj3EUGwqZ zjDtSyJIH2DgZ7OBT5dCRa nP0bkNhbslsmgW5vFhu+TV JOOjwvdGQ+ ZGQdRJQ1aBlfKRaiBJUehZ 0xFRCnY9t6CzZwElF8AMaj R0WzxeJ0TLNjoBLiOKBpeX VZlC0hmgef g7nkrrdiQmCuMLEiNBn2PO y3WVOjiVwvHjBpATC6WuD5 KSD8mUXuwL5ieVnqfkjbxV 9wOyc+UGF5 ENR0ZW56VC16W3RxCfuexG FibGU+PHRhYmxlIHdpZHRo NSipADVoBnTbvPevOG3fQk 9yZGVyLWNv bGxhcHNlOiBjb (more content not included)... Normal [facility] Physician Orderon 08-08-2023 Physician Order [id number] .[id number] Normal [facility] Formson 08-06-2023 Forms [id number] Normal [facility] Physician Orderon 07-23-2023 Physician Order [id number]. [id number] Normal [facility] Calculus Analysison 06-23-19 24 Calcium oxalate dihydrate Infrared spectroscopy (Stone) [Mass fraction] 20 % Invalid Interpretation Code [facility] Comment on above: Performed By: #### 1 [id number] ####[address] [place] [address] Calcium oxalate monohydrate (Stone) [Mass fraction] 70 % Invalid Interpretation Code [facility] Comment on above: Performed By: #### 1 [id number] ####[facility] [address] [place] [address] Calculus analysis [Interp] Comment Invalid Interpretation Code [facility] Comment on above: Result Comment: Calc ium phosphate (hydroxyl form) includes hydroxyapatite, amorphous calcium phosphate, and whitlockite. Hydroxyapatite is the most common of the calcium phosphate salts found in human kidney stones. Performed By: #### 1 [id number] ####[address] [address] Color (Stone) Brown Invalid Interpretation Code [facility] Comment on above: Performed By: #### 1 [id number] ####[address] [address] Composition Comment Invalid Interpretation Code [facility] Comment on above: Result Comment: Perc entage (Represents the % composition) Performed By: #### 1 [id number] ####[address] [address] Disclaimer: Comment Invalid Interpretation Code [facility] Comment on above: Result Comment: This test was developed and its performance characteristics determined by [employer]. It has not been cleared or approved by the Food and Drug Administration. Performed at: [address] [id number] PhD Norman Rodrigez Performed By: #### 1 [id number] ####[address] [address] Hydroxyapatite: 10 % Invalid Interpretation Code [facility] Comment on above: Performed By: #### 1 [id number] ####[address] [place] [address] Laboratory comment Yunier (Report) Comment Invalid Interpretation Code [facility] Comment on above: Result Comment: Selene cuevas questions regarding Calculi Analysis contact [facility] at: [phone]. Performed By: #### 1 [id number] ####[address] [place] [address] Please Note: Comment Invalid Interpretation Code [facility] Comment on above: Result Comment: Calc marylin report will follow via computer, mail or barrer and tacker delivery. Performed By: #### 1 [id number] ####[facility] [address] [place] [address] Size (Stone) [Entitic vol] 3x3 Invalid Interpretation Code [facility] Comment on above: Result Comment: Mult iple pieces received. Dimensions of the largest piece reported. Performed By: #### 1 [id number] ####[facility] [address] [place] [address] Specimen source subject Nom Kidney Invalid Interpretation Code [facility] Comment on above: Performed By: #### 1 [id number] ####[facility] [address] [place] [address] Stone Photo Comment Invalid Interpretation Code [facility] Comment on above: Result Comment: Phot ograph will follow under a separate cover Performed By: #### 1 [id number] ####[facility] [address] [place] [address] Weight (Stone) 75 mg Invalid Interpretation Code [facility] Comment on above: Performed By: #### 1 [id number] ####[facility] [address] [place] [address] Progress Note-Physicianon Progress Note-Physician Patient: SUNSHINE RYDER Age: 23 years Sex: Female : 2000 Associated Diagnoses: None Author: MD Marlyn, Hiwot Valadez Postoperative Information Postoperative disposition: Postoperative disposition: To PACU. Optimetrix number: Optimetrix number [id number]. Anesthetic utilized: General. Health Status Allergies: Allergic [...] when meets criteria ( To home ). [facility] Comment on above: Result Comment: Elec [...] BID, # 10 tab(s), Refills(s) 0, Pharmacy: [facility] #3471, 163.5, cm, 06/13/23 10:01:00 EDT, Height/Length Dosing, 87.1, kg, 06/13/23 10:01:00 EDT, Weight Dosing Flomax 0.4 mg Cap: 0.4 mg = 1 cap(s), Oral, Daily, # 30 cap(s), Refills(s) 0, Pharmacy: [facility]/pharmacy #[id number], 165, cm, 04/01/23 6:28:00 EST, Height/Length [...] list: All Problems Hypertension / SNOMED CT 2728926314 / Confirmed ADHD / SNOMED CT 9043056522 / Confirmed Kidney stone / SNOMED CT 832120756 / Confirmed Flank pain / SNOMED CT 945794564 / Confirmed Abdominal pain / SNOMED CT 63214776 / Confirmed Smoker / SNOMED CT 222873702 / Confirmed Added secondary to documentation in Social History. Resolved: Kidney stone / SNOMED CT 502715235 Resolved: Migraine / SNOMED CT 45956268 Resolved: Acid reflux / SNOMED CT 9887316564 Resolved: Hypertension / SNOMED CT 11756258 Resolved: ADHD - Attention deficit disorder with hyperactivity / SNOMED CT 0663323200 Resolved: Stent placement / SNOMED CT 566193363 stent in ureter Histories Past Medical History: Resolved Kidney stone (158341765): Resolved. Migraine (64242952): Resolved. Acid reflux (7582740694): Resolved. Hypertension (35122303): Resolved. ADHD - Attention deficit disorder with hyperactivity (6307053541): Resolved. Stent placement (182725710): Resolved. Comments: 05/20/2023 EDT 11:51 XU Groves RN, Radha Patiño stent in ureter Family History: Kidney stone Mother Hypertension Mother Diabetes mellitus type 2 Grandparent Alcoholism Father Migraine Mother Stroke Grandparent Procedure history: Cystoscopy and uretoscopy (4870575094) on 06/13/2023 at 23 Years. Comments: 06/13/2023 14:34 XU Ventura RN, Jill Jerez Left stent removal, stone extraction, stone basket and homium laser cystoscopy, ESWL of left kidneym with stent placement (64397687) on 04/18/2023 at 23 Years. Tonsillectomy (039094820). wisdom extraction (13995751). Lithotripsy (652062030). Social History Social & Psychosocial Habits Alcohol [...] results Radiology results ECG interpretation Condition Plan [place] [employer] Anesthesiologists (ASA) physical status classification: Class II. Anesthetic Preoperative Plan Anesthesia: General. . Anesthetic plan, risks, benefits, and alternatives discussed with the patient and/or family. Risks discussed: nausea, vomiting, headache, sore throat, dental injury, serious complications. Patient verbalized understanding. Communication: face to face with patient [address] [facility] Comment on above: Result Comment: Elec tronically Signed By: MD Marlyn, Hiwot Valadez\.eduardo\Date and Time Signed: 06/19/23 08:20 EDT Postoperative Documentson Postoperative Documents [id number]#1. 00TIFF [facility] IntraOperative Documentson 0 06-17-2023 IntraOperative Documents [id number]#1.[address] [facility] Consent for Anesthesiaon Consent for Anesthesia [id number]#1. 00TIFF [facility] Discharge Instructionson Discharge Instructions [id number]#1. 00TIFF [facility] IntraOperative Documentson 0 06-14-2023 IntraOperative Documents [id number]#1. 00TIFF Normal [facility] Main OR Intraoperative Recor don 06-14-2023 Main OR Intraoperative Record IntraOp Document Type FT Summary Primary Physician: Viral CLAROS MD Finalized Date/Time: 06/14/23 13:16:52 Pt. Name: SUNSHINE RYDER /Sex: 2000 Female Med Rec #: [id number] Physician: Viral CLAROS MD Financial #: [id number] Pt. Type: A Room/Bed: 05/19 Admit/Disch: 06/13/23 09:25:53 - 06/13/23 14:20:00 Institution: [...] Comments DR SKINNER [employer]PERVIS[employer] Last Modified By: Loi DOUGLAS, Glenny Monsivais RN, Glenny Sloan RN 06/13/23 12:16:06 06/13/23 12:16:06 06/13/23 12:16:06 Entry 4 Entry 5 Case Attendee Loi DOUGLAS, Jude Faith Role Performed Dining Room Attendant - Primary Scrub - Relief Time In [...] mechanical sources (more content not included)... Normal [facility] Pre-Op Checkliston Pre-Op Checklist [id number]#1. 00TIFF Normal [facility] XR Abdomen 1 Viewon 06-14-19 [...] mGy = 1.80 DAP = 139.30 Normal [facility] Consent for Procedure/Surger yon 06-13-2023 Consent for Procedure/Surgery [id number]#1.0 0TIFF Normal [facility] Consent for Treatmenton 05-20 Consent for Treatment [id number]#1.[address] [facility] Discharge Instructionson Discharge Instructions SUNSHINE RYDER [...] Temperature above 101.5 degrees Pharmacy Information Other: [facility] [place] Discharge Instructions Discharge Instructions New Follow Up [...] prescription for antibiotics to your pharmacy. Where: [address] [facility] [address] [address]- Business (1) Medications What How Much When Instructions Next Dose New acetaminophen-hydrocod one (acetaminophen-hydroco done 325 mg-5 mg oral tablet) 1 Tablets By Mouth Every 4 hours as needed for Pain Duration: 2 Days Pickup at [facility]/pharmacy #3471 New ciprofloxacin (Cipro 500 mg Tab) 1 Tablets By Mouth 2 times a day Pickup at [facility]/pharmacy #3471 Unchanged acetaminophen (Tylenol 325 mg Tab) [...] Mouth 2 times a day Pharmacy Information [facility]/pharmacy #[id number]: [address] [place], [place] [phone] Allergies codeine (Hives, Rash, Hyperactivity) Education Materials [facility] [place], [place] Dr. Viral Ramsay Post-operative Instructions for [...] other reasons. If it is to remain ferry terminal agent, however, changes of the stent are required [...] normal activities, (more content not included)... Normal [facility] Comment on above: Result Comment: Elec tronically Signed By: Jill Ventura RN\.br\Date and Time Signed: 06/13/23 13:56 EDT H&P Updateon 06-13-2023 H&P Update [id number]#1.0 0TIFF Normal [facility] Inpatient Patient Summaryon 06-13-2023 Inpatient Patient Summary [place] [id number] [facility] Clinical Discharge Instructions PERSON INFORMATION Name: SUNSHINE RYDER PHYSICIANS Admitting Physician: Viral CLAROS MD Attending Physician: Viral CLAROS MD PCP: GAYE DILL MD Discharge Diagnosis: Comment: PATIENT EDUCATION INFORMATION Instructions: Wgiq-Lrvm-xz Utereroscopy,Lithotrip sy, Stone Extraction, Stent Placement (Custom) Medication Leaflets: Follow up: With: Address: When: Viral CLAROS [address], [address], [facility] [address] [place] [address] Business (1) Comments: As we discussed, my [...] to your pharmacy. MEDICATION LIST New Medications [facility]/pharmacy #[id number], [address], [place] [phone], [phone] acetaminophen-hydrocod one (acetaminophen-hydroco done 325 mg-5 mg [...] By Mouth 2 times a day. Comment: Silvia [facility] Main OR PACU I Recordon 05-20 Main OR PACU I Record PACU Phase I Docum ent Type FT Summary Primary Physician: Viral CLAROS MD Finalized Date/Time: 06/13/23 12:55:58 Pt. Name: SUNSHINE RYDER Jarocho Lawson./Sex: 2000 Female Med Rec #: [id number] Physician: Viral CLAROS MD Financial #: [id number] Pt. Type: A Room/Bed: [facility] Admit/Disch: 06/13/23 09:25:53 - Institution: Case Times [...] By: Merary Ludwig RN 06/13/23 12:55 Normal [facility] Main OR PACU II Recordon Main OR PACU II Record PACU Phase II Document Type FT Summary Primary Physician: Viral CLAROS MD Finalized Date/Time: 06/13/23 14:32:23 Pt. Name: BRITNISUNSHINE /Sex: 2000 Female Med Rec #: [id number] Physician: Viral CLAROS MD Financial #: [id number] Pt. Type: A Room/Bed: [facility] Admit/Disch: 06/13/23 09:25:53 - Institution: Case Times [...] By: Jill Ventura RN 06/13/23 14:32 Normal [facility] Main OR Preoperative Recordo n 06-13-2023 Main OR Preoperative Record PreOp Document Type FT Summary Primary Physician: Viral CLAROS MD Finalized Date/Time: 06/13/23 11:44:36 Pt. Name: SUNSHINE RYDER /Sex: 2000 Female Med Rec #: [id number] Physician: Viral CLAROS MD Financial #: [id number] Pt. Type: A Room/Bed: [place] [address] Admit/Disch: 06/13/23 09:25:53 - Institution: Case Times [...] By: Glenny Monsivais RN 06/13/23 11:44 Normal [facility] Monitor Recordon 06-13-2023 Monitor Record [id number]#1. 00TIFF Normal [facility] Monitor Record [id number]#1. 00TIFF Normal [facility] Operative Reporton Operative Report Patient: [...] placed per urethra and a well-lubricated 22 Peruvian is urethroscope with 30 degree lens then [...] for evaluation. She is transferred to the [facility] and then back to PACU [...] ml. Complications: None. Anesthesia type: General. Normal [facility] Comment on above: Result Comment: Elec tronically Signed By: SHAWN COOK, Viral Grant.br\Date and Time Signed: 06/13/23 12:25 EDT Outpatient Surgery Discharge Instructionon 06-13-2023 Outpatient Surgery Discharge Instruction [address] [address] Patient Discharge Instructions PERSON INFORMATION [...] Follow up: With: Address: When: Viral CLAROS [address] [place] [address], [address], [place] [phone] Business (1) Comments: As we discussed, my [...] antibiotics to your pharmacy. Pharmacy Information: [facility] You may receive a survey from Kimberlee Hopper asking you to rate your care experience. Your feedback is important and will help us understand what we do well and how we can improve the quality of care we provide to you, your loved ones and our community. It?s an honor to serve you. Thank you for choosing [facility] HERE ARE THE MEDICATION CHANGES THAT OCCURRED DURING YOUR HOSPITAL STAY New Medications [facility]/pharmacy #[id number], [address], [place] [phone], [phone] acetaminophen-hydrocod one (acetaminophen-hydroco done 325 mg-5 mg [...] day. PATIENT EDUCATION INFORMATION Instructions: [facility] [place], [place] Dr. Viral Ramsay Post-operative Instructions for [...] stent will (more content not included)... Normal [facility] Patient Education - Texton 0 06-13-2023 Patient Education - Text [facility] [place] Dr. Viral Ramsay Post-operative Instructions for [...] other reasons. If it is to remain penitentiary, however, changes of the stent are required [...] arrange for your post-operative appointment (with XRAY) [phone] Normal [facility] SEROLOGYOrdered By: Pati Tuttle on 06-13-2023 HCG.beta subunit (U) [Moles/Vol] Negative Normal [facility] Man Sero U BetaHcg Qualon 06-13-2023 HCG.beta subunit (U) [Moles/Vol] Negative Normal [facility] Comment on above: Performed By: #### 2 [id number] ####[facility] [address] [place] [address] XR Abdomen 1 Viewon 06-13-19 24 XR [...] mGy = 0 DAP = 0 Normal [facility] Ambulatory Visit Summaryon 0 06-05-2023 [...] with SHAWN COOK, AAMIR Taylor When: Where: [address] [place] [address] AVE [address] [address]- Medications What How Much When Instructions Unchanged [...] including vitamins, herbs, eye drops, creams, and noib-fux-odqresp medicines. ? Any problems you or family [...] fatty foods (more content not included)... Normal [facility] Patient Educationon 06-05-19 Patient Education [...] including vitamins, herbs, eye drops, creams, and vpbz-ovs-tbjagjs medicines. ? Any problems you or family [...] tells you to take them. ? Taking tkxh-qyl-snvmouy medicines, vitamins, herbs, and supplements. Tests You [...] with voice recognition artificial intelligence software, specifically Magick.nu, AcceloWeb and or Arboribus. Substitutions may have occurred due to the inherent limitations of voice recognition and artificial intelligence software. 1. Kidney stone (N20.0: Calculus of kidney) Pt was seen at [facility] on 01/22/23 due to left sided [...] right interpolar renal calculus. Pt presented to [facility] ER 05/20/23 with hematuria. Reports gross hematuria [...] P, URL [address] [address]- Additional Instructions: Proceed with stone [...] times per day, (more content not included)... [facility] Comment on above: Result Comment: Elec tronically Signed By: Viral CLARSO MD\.br\Date and Time Signed: 06/05/23 08:50 EDT\.br\Electronically Co-Signed By: Judy Daily\.br\Date and Time Co-Signed: 06/05/23 08:47 EDT Office Visiton 05-28-2023 Follow-up visit [id number] Ana Luisa Ryder 2000 F Date Provider Department Center 05/28/2023 3848-VELMA CHAND RANDY Peralta Family History Problem Relation Age of Onset Hypertension Mother Heart attack Maternal Grandmother Heart attack Maternal Grandfather Stroke Maternal Grandfather Family Status - Relation Status Age at Mother Maternal Grandmother Maternal Grandfather Level of Service:67376 [place] OFFICE/OUTPATIENT ESTABLISHED MOD MDM 30 MIN Reason for Visit and Comments: Follow-up [723528] - Last saw Camilo in 2021 [facility] Orders Onlyon 05-28-2023 Orders Only [id number] Ana Luisa Ryder 2000 Date Provider Department Center 05/28/2023 Vic5-APRIL PARNELL RANDY [place] Family History Problem Relation Age of Onset Hypertension Mother Heart attack Maternal Grandmother Heart attack Maternal Grandfather Stroke Maternal Grandfather Family Status - Relation Status Age at Mother Maternal Grandmother Maternal Grandfather [facility] C Urineon 05-22-2023 Bacteria identified Cx [...] Locations R1: This test was performed at: [facility], [address] [place] [address], [address]- , , [facility] Comment on above: Performed By: #### 2 1957863, [id number], [id number] #### [facility] [address] [place] [address] ED Note-Physicianon 05-21-19 24 ED Note-Physician [id number]#1.[address] [facility] ED Note-Physician [id number]#1[address]TI[address] [facility] BMPon 05-20-2023 Anion gap [Moles/Vol] 13 mmol/L Normal 6-16 [facility] Comment on above: Performed By: #### 2 510230, 53003642, 24558555, 8380970 ####[facility] [address] [place] [address] Calcium [Mass/Vol] 9.2 mg/dL Normal 8.9-11.1 [facility] Comment on above: Performed By: #### 2 626862, 51489191, 40624044, 3928480 ####[facility] [address] [place] [address] Chloride [Moles/Vol] 109 mmol/L Normal 101-[address] [facility] Comment on above: Performed By: #### 2 291067, 58718916, 86192892, 1702869 ####[facility] [address] [place] [address] CO2 [Moles/Vol] 19 mmol/L Low 21-31 [facility] Comment on above: Performed By: #### 2 996840, 27749201, 69887278, 5719051 ####[facility] [address] [place] [address] Creatinine [Mass/Vol] 0.9 mg/dL Normal 0.5-1.3 [facility] Comment on above: Performed By: #### 2 670781, 56324535, 92083134, 7568949 ####[facility] [address] [place] [address] Glucose [Mass/Vol] 114 mg/dL Normal 55-199 [facility] Comment on above: Performed By: #### 2 836229, 14018744, 84913206, 8422214 ####[facility] [address] [place] [address] Potassium [Moles/Vol] 4.0 mmol/L Normal 3.5-5.3 [facility] Comment on above: Performed By: #### 2 794876, 19067674, 83342183, 2317650 ####[facility] [address] [place] [address] Sodium [Moles/Vol] 137 mmol/L Normal 135-145 [facility] Comment on above: Performed By: #### 2 682447, 75427547, 22193947, 8383575 ####[facility] [address] [place] [address] Urea nitrogen [Mass/Vol] 16 mg/dL Normal 5-21 [facility] Comment on above: Performed By: #### 2 522750, 88687968, 59051267, 7609945 ####[facility] [address] [place] [address] Urea nitrogen/Creatinine [Mass ratio] 18 No Units Normal 10-20 [facility] Comment on above: Performed By: #### 2 154382, 26724233, 45846496, 4774266 ####[address] [address] CBC w/ Auto Diffon 4 Basophils/100 WBC (Bld) 1.0 % Normal 0.0-2.0 [facility] Comment on above: Performed By: #### 2 069304, 52745065, 72334424, 3667637 ####[address] [address] Basophils/Leukocytes Auto (Bld) [Pure # fraction] 0.1 E9/L Normal 0.0-0.2 [facility] Comment on above: Performed By: #### 2 767812, 98813270, 79705150, 2049995 ####[address] [address] Eosinophils (Bld) [#/Vol] 0.3 E9/L Normal 0.0-0.5 [facility] Comment on above: Performed By: #### 2 230926, 22913177, 35450144, 0587561 ####[address] [address] Eosinophils/100 WBC (Bld) 2.2 % Normal 0.0-8.0 [facility] Comment on above: Performed By: #### 2 049261, 54027577, 34259876, 0003851 ####[address] [address] Erythrocyte distribution width (RBC) [Ratio] 13.1 % Normal 10.9-14.2 [facility] Comment on above: Performed By: #### 2 899290, 52821113, 43479943, 9016685 ####[address] [address] Hematocrit (Bld) [Volume fraction] 41.5 % Normal 34.0-46.0 [facility] Comment on above: Performed By: #### 2 936846, 18542711, 83142064, 4645408 ####[address] [address] Hemoglobin (Bld) [Mass/Vol] 14.0 g/dL Normal 12.0-16.0 [facility] Comment on above: Performed By: #### 2 026955, 39266351, 57123259, 3133210 ####[address] [address] Lymphocytes (Bld) [#/Vol] 2.4 E9/L Normal 1.0-4.0 [facility] Comment on above: Performed By: #### 2 364509, 19560610, 25894933, 8582553 ####[address] [address] Lymphocytes/100 WBC (Bld) 20.0 % Normal 14.0-50.0 [facility] Comment on above: Performed By: #### 2 653205, 54810257, 81788205, 8897463 ####[address] [address] MCH (RBC) [Entitic mass] 30.2 pg Normal 27.0-34.0 [facility] Comment on above: Performed By: #### 2 513576, 87487762, 85351080, 9795359 ####[address] [address] MCHC (RBC) [Mass/Vol] 33.9 g/dL Normal 31.4-36.0 [facility] Comment on above: Performed By: #### 2 230775, 63631884, 16193161, 1893051 ####[address] [address] MCV (RBC) [Entitic vol] 89.1 fL Normal 80.0-100.0 [facility] Comment on above: Performed By: #### 2 878577, 61275445, 71364400, 4916221 ####[facility] [address] [place] [address] Monocytes (Bld) [#/Vol] 0.8 E9/L Normal 0.2-1.0 [facility] Comment on above: Performed By: #### 2 040025, 49545274, 63770045, 4117206 ####[address] [address] Neutrophils (Bld) [#/Vol] 8.3 E9/L High 2.0-7.5 [facility] Comment on above: Performed By: #### 2 212837, 62129491, 03148329, 9415422 ####[address] [address] Neutrophils/100 WBC (Bld) 70.2 % Normal 36.0-75.0 [facility] Comment on above: Performed By: #### 2 681827, 64280104, 26470405, 6997002 ####[address] [address] Platelet mean volume (Bld) [Entitic vol] 8.8 fL Normal 6.4-10.8 [facility] Comment on above: Performed By: #### 2 390900, 41970889, 43172111, 5234192 ####[address] [address] Platelets (Bld) [#/Vol] 259.0 E9/L Normal 150.0-500.0 [facility] Comment on above: Performed By: #### 2 817030, 57134992, 83713009, 7229701 ####[address] [address] RBC (Bld) [#/Vol] 4.7 E12/L Normal 4.3-5.9 [facility] Comment on above: Performed By: #### 2 419602, 96281529, 25559002, 6077894 ####[address] [address] WBC corrected for nucl RBC Auto (Bld) [#/Vol] 11.7 E9/L High 4.0-11.0 [facility] Comment on above: Performed By: #### 2 004073, 07428126, 35972485, 6751814 ####[facility] [address] [place] [address] CHEMISTRYOrdered By: SYSTEM SYSTEM on 05-20-2023 Anion [...] 33.6 s Normal 25.1 - 36.5 second(s) [facility] Auto Coag Comment on above: Interpretive Data: [...] the same coagulation reagent and instrumentation as [facility]. Currently there are no coagulation studies available worldwide for children to 14 days, and no normal ranges. Heparin therapeutic range (represented by Anti-Factor Xa activity of 0.2 - 0.4 U/mL) corresponds to PTT of 56.6 - 109.0 sec. INR Coag (PPP) [Relative time] 1.08 {INR} Invalid Interpretation Code [facility] Auto Coag Comment on above: Interpretive Data: I NR results are specifically intended to assess patients stabilized on long-term Anticoagulation therapy suggested INR s Less Intensive Anticoagulation 2.0 3.0 Conventional Range 3.0 4.5 PT Coag (PPP) [Time] 12.1 s Normal 9.4 - 1 2.5 second(s) [facility] Auto Coag Comment on above: Interpretive Data: [...] the same coagulation reagent and instrumentation as [facility]. Currently there are no coagulation studies available worldwide for children to 14 days, and no normal ranges. Consent for Treatmenton Consent for Treatment [id number] 0TIFF Normal [facility] Discharge Instructionson Discharge Instructions [id number]#1. 00TIFF Normal [facility] ED Clinical Summaryon 2023 ED Clinical Summary [place] [id number] ED Clinical Summary Person Information Name: SUNSHINE RYDER [place] Age: 23 Years : 2000 Sex: Female Language: Amharic PCP: GAYE DILL MD Marital Status: Single [...] 05/20/2023 14:38:45 05/20/2023 14:38:45 05/20/2023 14:38:45 ADDRESS: [address] [place] [phone] PHYS DOC NOTES: MEDICAL INFORMATION: Prescriptions Given: [...] Follow up: With: Address: When: Viral CLAROS [address] [place] [address], [address], [place] [phone] Business (1) In 3 days 05/23/2023 Comments: Call Dr for diagnosis based follow up. Dr. Claros's office is going to call. Call the office if they do not call you in the next couple days. Continue taking Bactrim as prescribed. Return to the emergency room if your pain gets worse, fever or any new symptoms. With: Address: When: GAYE DILL [address] [place], [place] [phone] Business (1) In 3 days DIAGNOSIS: 1:Flank pain; 2:Hematuria Normal [facility] ED Note-Physicianon 05-20-19 ED Note-Physician [...] vomiting. She states she was seen at [facility] on Saturday and Saturday. She states she [...] and Complexity of Problems Differential Diagnosis: [] [facility] Data External documents reviewed: ER visit document from [facility] My EKG interpretation: [] My CT [...] the stent. The patient was seen at [facility] ER on Saturday and Saturday. Records from [...] CLAROS In 3 days 05/23/[address] [facility] [place] [address]- [phone] (more content not included)... Normal [facility] Comment on above: Result Comment: [...] by your health care provider. ? Take mlyx-rlw-qgrngth and prescription medicines only as told by [...] provider. Document Revised: 04/17/2021 Document Reviewed: 04/17/2021 [employer] Patient Education ? 2022 [employer]. Urology Hematuria, Adult Hematuria is blood [...] these instructions at home: Medicines ? Take euvp-qet-xfuwftc and prescription medicines only as told by [...] the departmen (more content not included)... Normal [facility] ED Patient Summaryon 024 ED Patient Summary [place] [address] Patient Discharge Instructions Person Information Name: SUNSHINE RYDER Age: 23 Years Arrival Date: 05/20/2023 11:32:16 Discharge Diagnosis: 1:Flank pain; 2:Hematuria Primary Care Physician: GAYE DILL MD Provider Information Primary Provider: Lawson Carbone M.D. Advanced Brake Repairer Hydraulic:None The exam and treatment you received in the Emergency Department were for an urgent problem and are not intended as complete care. It is important that you follow up with a doctor, nurse practitioner, or physician?s account assistant for ongoing care. If your symptoms [...] Follow-up Instructions: With: Address: When: Viral CLAROS [address], [address], [address] [address] Business (1) In 3 days 05/23/2023 Comments: Call Dr for diagnosis based follow up. Dr. Claros's office is going to call. Call the office if they do not call you in the next couple days. Continue taking Bactrim as prescribed. Return to the emergency room if your pain gets worse, fever or any new symptoms. With: Address: When: GAYE DILL [address] [place] [address] Business (1) In 3 days In the [...] opioids can be used to help relieve nomagxvs-wz-rqpthx pain and are often prescribed following a [...] drug take-ba (more content not included)... Normal [facility] HEMATOLOGYOrdered By: SYSTEM SYSTEM on [...] Remisol Heme Outside Recordson 05-20-2023 Outside Records [id number]#1. 00TIFF Normal [facility] PT & PTTon 05-20-2023 aPTT Coag (PPP) [Time] 33.6 second(s) Normal 25.1-36.5 [facility] Comment on above: Result Comment: [...] the same coagulation reagent and instrumentation as [facility]. Currently there are no coagulation studies available worldwide for children to 14 days, and no normal ranges. Heparin therapeutic range (represented by Anti-Factor Xa activity of 0.2 - 0.4 U/mL) corresponds to PTT of 56.6 - 109.0 sec. Performed By: #### 2 411215, 67719858, 87339393, 8042593 ####[facility] [address] [place] [address] INR Coag (PPP) [Relative time] 1.08 {INR} Invalid Interpretation Code [facility] Comment on above: Result Comment: INR results are specifically intended to assess patients stabilized on long-term Anticoagulation therapy suggested INR?s ?Less Intensive Anticoagulation? 2.0 ? 3.0 Conventional Range 3.0 ? 4.5 Performed By: #### 2 969409, 87540813, 33820919, 1333667 ####[facility] [address] [place] [address] PT Coag (PPP) [Time] 12.1 second(s) Normal 9.4-12.5 [facility] Comment on above: Result Comment: [...] the same coagulation reagent and instrumentation as [facility]. Currently there are no coagulation studies available worldwide for children to 14 days, and no normal ranges. Performed By: #### 2 656700, 59284828, 07203050, 1671160 ####[facility] [address] [place] [address] SEROLOGYOrdered By: Mike Herron on 05-20-2023 HCG.beta subunit (U) [Moles/Vol] Negative Normal [facility] Man Sero U BetaHcg Qualon 05-20-2023 HCG.beta subunit (U) [Moles/Vol] Negative Normal [facility] Comment on above: Performed By: #### 2 3857582, [id number], 5125677 #### [facility] [address] [place] [address] UA with Cult Rflxon 05-20-19 24 Color (U) Light-Napa Abnormal Yellow [facility] Comment on above: Result Comment: Micr oscopic readings are only performed on those samples that meet specific criteria set forth by [facility]. Performed By: #### 2 1445252, [id number], 7094419 #### [facility] [address] [place] [address] Glucose (U) [Mass/Vol] Negative Normal Negative [facility] Comment on above: Performed By: #### 2 7951925, [id number], 0966452 #### [facility] [address] [place] [address] Ketones Ql (U) Negative Normal Negative [facility] Comment on above: Performed By: #### 2 7281864, [id number], 7012641 #### [facility] [address] [place] [address] UA Blood 3+ mg/dL Abnormal Negative [facility] Comment on above: Performed By: #### 2 4122203, 9757223392, 5922035 #### [facility] [address] [place] [address] UA Bacteria Trace Normal Trace [facility] Comment on above: Performed By: #### 2 0359332, 8594834277, 6121267 #### [facility] [address] [place] [address] UA Clarity Turbid Abnormal Clear [facility] Comment on above: Performed By: #### 2 3340556, 4494567931, 0683874 #### [facility] [address] [place] [address] UA Leuk Est 250 Mitchell/uL Abnormal Negative [facility] Comment on above: Performed By: #### 2 8844816, 7676034718, 0611654 #### [facility] [address] [place] [address] UA Mucous 1+ CD:[id number] Abnormal Negative [facility] Comment on above: Performed By: #### 2 1185450, 2722906622, 0257347 #### [facility] [address] [place] [address] UA Nitrite Negative Normal Negative [facility] Comment on above: Performed By: #### 2 2992726, 1660234712, 6529145 #### [facility] [address] [place] [address] UA pH 6.0 Invalid Interpretation Code 5.0-9.0 [facility] Comment on above: Performed By: #### 2 5001531, 1031221036, 1609308 #### [facility] [address] [place] [address] UA Protein 1+ mg/dL Abnormal Negative [facility] Comment on above: Performed By: #### 2 7632555, 2848790041, 7484732 #### [facility] [address] [place] [address] UA RBC >75 Abnormal 0-3 [facility] Comment on above: Performed By: #### 2 3288347, 7853757313, 6150770 #### [facility] [address] [place] [address] UA Spec Grav 1.015 Invalid Interpretation Code 1.005-1.030 [facility] Comment on above: Performed By: #### 2 5290630, 3188894833, 3795429 #### [facility] [address] [place] [address] UA Squam Epithelial 0-2 Normal 0-2 [facility] Comment on above: Performed By: #### 2 8559573, 3668544862, 4385962 #### [facility] [address] [place] [address] UA Urobilinogen Negative Normal Negative [facility] Comment on above: Performed By: #### 2 9450247, 4393236651, 0791418 #### [facility] [address] [place] [address] UA WBC 6-15 Abnormal 0-5 [facility] Comment on above: Performed By: #### 2 2236714, [id number], 8058060 #### [facility] [address] [place] [address] Urobilinogen (U) [Mass/Vol] Negative Normal Negative [facility] Comment on above: Performed By: #### 2 3173975, 8696658443, 7993402 #### [facility] [address] [place] [address] UA Spec Desc Clean Catch Normal [facility] Comment on above: Performed By: #### 2 8650830, 2918287669, 0523067 #### [facility] [address] [place] [address] URINALYSISOrdered By: SYSTEM SYSTEM on 05-20-2023 Color (U) Light-Napa 1 *ABN* (05/20/23 11:54 AM) Invalid Interpretation Code Yellow [facility] UA Auto SS Comment on above: Interpretive Data: M icroscopic readings are only performed on those samples that meet specific criteria set forth by [facility]. Glucose (U) [Mass/Vol] Negative [...] MD Transcribed by: WILMER Technologist: MARY Vega [facility] XR Abdomen 1 Viewon 05-20-19 [...] mGy = na DAP = na Normal [facility] eGFRon 05-20-2023 eGFR 93 mL/min/1.73 m2 Normal >=59 [facility] Comment on above: Order Comment: Order added by Discern Expert. Performed By: #### 2 687998, 40857348, 27999608, 9534867 ####[facility] [place] [address] Provider Letteron 05-16-2023 Provider Letter [id number] May 16, 2023 SUNSHINE RYDER [address] [place] [id number] : 2000 SUNSHINE RYDER was evaluated at [facility] 05/16/2023 16:33:47 Patient may work as scheduled with the following restrictions: Restrictions: No heavy lifting over 10lbs, allow pt to have a 15-minute break every 2 hours Provider Signature HAWA Hernandez Nurse Practitioner [facility] [address] [place] [address] Normal [facility] RAD - MISCon 05-13-2023 RAD - MISC [id number] 30 [id number]#1.0 0TIFF Normal [facility] RAD - MISCon 04-29-2023 RAD - MISC [id number]#1.0 0TIFF Normal [facility] IntraOperative Documentson 0 04-26-2023 IntraOperative Documents [id number]#1. 00TIFF Normal [facility] Main OR Intraoperative Recor don 04-23-2023 Main OR Intraoperative Record IntraOp Document Type FT Summary Primary Physician: Viral CLAROS MD Finalized Date/Time: 04/23/23 09:41:09 Pt. Name: SUNSHINE RYDER /Sex: 2000 Female Med Rec #: [id number] Physician: Viral CLAROS MD Financial #: [id number] Pt. 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 Normal [facility] Consent for Anesthesiaon Consent for Anesthesia [id number]#1.[address] [facility] Discharge Instructionson Discharge Instructions [id number]#1.[address] [facility] IntraOperative Documentson 0 04-19-2023 IntraOperative Documents [id number]#1.[address] [facility] IntraOperative Documents [id number]#1.[address] [facility] IntraOperative Documents [id number]#1.[address] [facility] Pre-Op Checkliston Pre-Op Checklist [id number]#1.[address] [facility] Consent for Procedure/Surger yon 04-18-2023 Consent for Procedure/Surgery [id number]#1.[address] [facility] Consent for Treatmenton 03-22 Consent for Treatment [id number]#1.0 0TIFF Normal [facility] Discharge Instructionson Discharge Instructions SUNSHINE [...] to keep the urine clear. Where: [address] [facility] [address] [place], [place] [id number]- [facility] (1) Medications What How Much When Instructions Next Dose New acetaminophen-hydrocod one (acetaminophen-hydroco done 325 mg-5 mg oral tablet) 1 Tablets By Mouth Every 4 hours as needed for Pain Duration: 2 Days N20.0 Pickup at [facility]/pharmacy #[id number] New cephalexin (cephalexin 500 mg Cap) 1 Capsules By Mouth Every 12 hours Duration: 5 Days Pickup at [facility]/pharmacy #3471 New oxybutynin (oxybutynin 5 mg Tab) 1 Tablets By Mouth 2 times a day Duration: 30 Days Refills: 1 Pickup at [facility]/pharmacy #3471 Unchanged acetaminophen (Tylenol 325 mg Tab) [...] Tablets By Mouth Every day Pharmacy Information [facility]/pharmacy #[id number]: [address] [place], [place] [phone] Test Results No qualifying data available. Allergies [...] instructions at (more content not included)... Normal [facility] Comment on above: Result Comment: Elec tronically Signed By: Carlos DOUGLAS, Mindi Coats\.br\Date and Time Signed: 04/18/23 10:52 EST H&P Updateon 04-18-2023 H&P Update [id number]#1.0 0TIFF Normal [facility] Inpatient Patient Summaryon 04-18-2023 Inpatient Patient Summary [place] [id number] [facility] Clinical Discharge Instructions PERSON INFORMATION Name: SUNSHINE RYDER PHYSICIANS Admitting Physician: Viral CLAROS MD Attending Physician: Viral CLAROS MD PCP: GAYE DILL MD Discharge Diagnosis: Comment: PATIENT EDUCATION INFORMATION Instructions: Lithotripsy, Care After Medication Leaflets: Follow up: With: Address: When: Viral CLAROS [address] [place] [address], [address], [place] [phone] Business (1) Comments: Please call my office [...] the urine clear. MEDICATION LIST New Medications [facility]/pharmacy #[id number], [address], [place] [phone], [phone] acetaminophen-hydrocod one (acetaminophen-hydroco done 325 mg-5 mg [...] Tablets By Mouth every day. Comment: Normal [facility] Main OR PACU I Recordon 03-22 Main OR PACU I Record PACU Phase I Docum ent Type FT Summary Primary Physician: Viral CLAROS MD Finalized Date/Time: 04/18/23 11:05:16 Pt. Name: SUNSHINE RYDER/Sex: 2000 Female Med Rec #: [id number] Physician: Viral CLAROS MD Financial #: [id number] Pt. Type: A Room/Bed: Admit/Disch: 04/18/23 07:31:13 [...] By: Nikia Woods RN 04/18/23 11:05 Normal [facility] Main OR PACU II Recordon Main OR PACU II Record PACU Phase II Document Type FT Summary Primary Physician: Viral CLAROS MD Finalized Date/Time: 04/18/23 13:12:09 Pt. Name: SUNSHINE RYDER/Sex: 2000 Female Med Rec #: [id number] Physician: Viral CLAROS MD Financial #: [id number] Pt. Type: A Room/Bed: [facility]/ Admit/Disch: 04/18/23 07:31:13 - Institution: Case [...] Signed By: Mindi Gonzalez RN 04/18/23 13:12 [facility] Main OR Preoperative Recordo n 04-18-2023 Main OR Preoperative Record PreOp Document Type FT Summary Primary Physician: Viral CLAROS MD Finalized Date/Time: 04/18/23 09:46:06 Pt. Name: SUNSHINE RYDER /Sex: 2000 Female Med Rec #: [id number] Physician: Viral CLAROS MD Financial #: [id number] Pt. Type: A Room/Bed: 03/ Admit/Disch: 04/18/23 [...] By: Paul Reddy Ii 04/18/23 09:46 Normal [facility] Monitor Recordon 04-18-2023 Monitor Record [id number]#1. 00TIFF Normal [facility] Operative Reporton Operative Report Patient: [...] placed per urethra and a well-lubricated 22 Peruvian is urethroscope with 30 degree lens then passed into the bladder. Panendoscopy reveals no tumors, no stones, no diverticuli. The left orifice was cannulated and a point 035 wire was passed up into the kidney. Over that a 4.9 Peruvian Dornier stent was passed into the kidney [...] it well. She is transferred to the [facility] and then back to PACU [...] her sister. I did send prescriptions for [place], cephalexin, and oxybutynin to the pharmacy.. Estimated Blood Loss: 0 ml. Complications: None. Anesthesia type: General. Normal [facility] Comment on above: Result Comment: Elec tronically Signed By: SHAWN COOK, Viral Grant.br\Date and Time Signed: 04/18/23 10:06 EST Outpatient Surgery Discharge Instructionon 04-18-2023 Outpatient Surgery Discharge Instruction [address] [address] Patient Discharge Instructions PERSON INFORMATION [...] Follow up: With: Address: When: Viral CLAROS [address] [place] [address], [address], [place] [phone] Business (1) Comments: Please call my office [...] to serve you. Thank you for choosing [facility] HERE ARE THE MEDICATION CHANGES THAT OCCURRED DURING YOUR HOSPITAL STAY New Medications [id number], [address], [place] [phone], [phone] acetaminophen-hydrocod one (acetaminophen-hydroco done 325 mg-5 mg [...] these instructions at home: Medicines ? Take xhjp-qpg-acspjbi and prescription medicines only as told by you (more content not included)... Normal [facility] Patient Education - Texton 0 [...] these instructions at home: Medicines ? Take obgj-hrc-odpnxtt and prescription medicines only as told by [...] forming. ? (more content not included)... Normal [facility] Progress Note-Physicianon Progress Note-Physician Patient: SUNSHINE RYDER Age: 23 years Sex: Female : 2000 Associated Diagnoses: None Author: Aamir Patel Jr., DO Postoperative Information Postoperative disposition: Postoperative disposition: Home. Optimetrix number: Optimetrix number [id number]. Anesthetic utilized: General. Physical Examination Vital Signs [...] Surgery Unit, and To home ). Normal [facility] Comment on above: Result Comment: [...] All Problems Abdominal pain / SNOMED CT 37054218 / Confirmed ADHD / SNOMED CT 0211207459 / Confirmed Flank pain / SNOMED CT 526250735 / Confirmed Hypertension / SNOMED CT 4973368651 / Confirmed Kidney stone / SNOMED CT 357677665 / Confirmed Smoker / SNOMED CT 112185823 / Confirmed Added secondary to documentation in Social History. Histories Past Medical History: No active or resolved past medical history items have been selected or recorded. Procedure history: Tonsillectomy (406967863). wisdom extraction (82501133). Social History Social & Psychosocial Habits Alcohol [...] Auto 54.6 % Lymph Auto 32.6 % Smith Auto 10.3 % Eos Auto 1.7 % Basophil Auto 0.8 % Neutro Absolute 3.1 E9/L Lymph Absolute 1.9 E9/L Smith Absolute 0.6 E9/L Eos Absolute 0.1 E9/L Basophil Absolute 0.0 E9/L PT 12.0 second(s) INR 1.1 NA PTT 33.2 second(s) Glucose Lvl 105 mg/dL BUN 15 mg/dL Creatinine 0.8 mg/dL eGFR 107 mL/min/1.73 m2 BUN/Creat Ratio 19 Sodium Lvl 136 mmol/L Potass (more content not included)... Normal [facility] Comment on above: Result Comment: Elec tronically Signed By: Aamir Patel Jr., DO\.br\Date and Time Signed: 04/18/23 07:56 EST SEROLOGYOrdered By: Juliane Mcdonnell on 04-18-2023 HCG.beta subunit (U) [Moles/Vol] Negative Normal [facility] Man Sero U BetaHcg Qualon 04-18-2023 HCG.beta subunit (U) [Moles/Vol] Negative Normal [facility] Comment on above: Performed By: #### 2 8540086 ####[facility] [address] [place] [address] XR Abdomen 1 Viewon 04-18-19 24 XR [...] mGy = 0 DAP = 0 Normal [facility] BMPon 03-29-2023 Anion gap [Moles/Vol] 11 mmol/L Normal 6-16 [facility] Comment on above: Performed By: #### 1 3136927, 6719209, 70283947, 9262755 #### [facility] [address] [place] [address] BUN/Creat Ratio 19 No Units Normal 10-20 [facility] Comment on above: Performed By: #### 1 2775895, 9529328, 08994542, 8977360 #### [facility] [address] [place] [address] Calcium [Mass/Vol] 8.6 mg/dL Low 8.9-11.1 [facility] Comment on above: Performed By: #### 1 2449623, 4939048, 51804601, 9617236 #### [facility] [address] [place] [address] Chloride [Moles/Vol] 107 mmol/L Normal 101-111 [facility] Comment on above: Performed By: #### 1 1814014, 9838557, 92215454, 5962084 #### [facility] [address] [place] [address] CO2 [Moles/Vol] 22 mmol/L Normal 21-31 [facility] Comment on above: Performed By: #### 1 9850126, 4290477, 06487762, 5325137 #### [facility] [address] [place] [address] Creatinine [Mass/Vol] 0.8 mg/dL Normal 0.5-1.3 [facility] Comment on above: Performed By: #### 1 0912137, 0731462, 16201658, 0488597 #### [facility] [address] [place] [address] Glucose [Mass/Vol] 105 mg/dL Normal 55-199 [facility] Comment on above: Performed By: #### 1 4562878, 2800044, 27379757, 8887370 #### [facility] [address] [place] [address] Potassium [Moles/Vol] 3.9 mmol/L Normal 3.5-5.3 [facility] Comment on above: Performed By: #### 1 1092789, 9906823, 32114475, 0052795 #### [facility] [address] [place] [address] Sodium [Moles/Vol] 136 mmol/L Normal 135-145 [facility] Comment on above: Performed By: #### 1 7990598, 9435455, 71233384, 9493101 #### [facility] [address] [place] [address] Urea nitrogen [Mass/Vol] 15 mg/dL Normal 5-21 [facility] Comment on above: Performed By: #### 1 9611514, 1261632, 99660996, 2684372 #### [facility] [address] [place] [address] CBC w/ Auto Diffon 4 Basophil Absolute 0.0 E9/L Normal 0.0-0.2 [facility] Comment on above: Performed By: #### 1 9939974, 5463353, 62066034, 2750562 #### [facility] [address] [place] [address] Basophils/100 WBC (Bld) 0.8 % Normal 0.0-2.0 [facility] Comment on above: Performed By: #### 1 9573039, 3399775, 50133622, 6043614 #### [facility] [address] [place] [address] Eos Absolute 0.1 E9/L Normal 0.0-0.5 [facility] Comment on above: Performed By: #### 1 6741878, 9179463, 97457812, 2856158 #### [facility] [address] [place] [address] Eosinophils/100 WBC (Bld) 1.7 % Normal 0.0-8.0 [facility] Comment on above: Performed By: #### 1 4914194, 2947400, 15558580, 2209807 #### [facility] [address] [place] [address] Erythrocyte distribution width (RBC) [Ratio] 13.0 % Normal 10.9-14.2 [facility] Comment on above: Performed By: #### 1 6402109, 8841085, 87149649, 7101175 #### [facility] [address] [place] [address] Hematocrit (Bld) [Volume fraction] 39.0 % Normal 34.0-46.0 [facility] Comment on above: Performed By: #### 1 1440375, 3973696, 36630152, 8817852 #### [facility] [address] [place] [address] Hemoglobin (Bld) [Mass/Vol] 13.2 g/dL Normal 12.0-16.0 [facility] Comment on above: Performed By: #### 1 0020005, 7052772, 08813575, 2039560 #### [facility] [address] [place] [address] Lymph Absolute 1.9 E9/L Normal 1.0-4.0 [facility] Comment on above: Performed By: #### 1 2720005, 0375746, 13475007, 7543940 #### [facility] [address] [place] [address] Lymphocytes/100 WBC (Bld) 32.6 % Normal 14.0-50.0 [facility] Comment on above: Performed By: #### 1 5903083, 5443886, 10002036, 0953868 #### [facility] [address] [place] [address] MCH (RBC) [Entitic mass] 30.1 pg Normal 27.0-34.0 [facility] Comment on above: Performed By: #### 1 7815165, 2844745, 02268698, 9670830 #### [facility] [address] [place] [address] MCHC (RBC) [Mass/Vol] 33.9 g/dL Normal 31.4-36.0 [facility] Comment on above: Performed By: #### 1 0092187, 8637130, 36186253, 6760565 #### [facility] [address] [place] [address] MCV (RBC) [Entitic vol] 89.0 fL Normal 80.0-100.0 [facility] Comment on above: Performed By: #### 1 7231334, 6261767, 72968793, 0345854 #### [facility] [address] [place] [address] Smith Absolute 0.6 E9/L Normal 0.2-1.0 [facility] Comment on above: Performed By: #### 1 0600298, 2959624, 25749600, 4439741 #### [facility] [address] [place] [address] Monocytes/100 WBC (Bld) 10.3 % Normal 4.0-14.0 [facility] Comment on above: Performed By: #### 1 [id number], [id number], [id number], [id number] #### [facility] [address] [place] [address] Neutro Absolute 3.1 E9/L Normal 2.0-7.5 [facility] Comment on above: Performed By: #### 1 [id number], [id number], [id number], [id number] #### [facility] [address] [place] [address] Neutro Auto 54.6 % Normal 36.0-75.0 [facility] Comment on above: Performed By: #### 1 [id number], [id number], [id number], [id number] #### [facility] [address] [place] [address] Platelet 225.0 E9/L Normal 150.0-500.0 [facility] Comment on above: Performed By: #### 1 [id number], [id number], [id number], [id number] #### [facility] [address] [place] [address] Platelet mean volume (Bld) [Entitic vol] 9.5 fL Normal 6.4-10.8 [facility] Comment on above: Performed By: #### 1 [id number], [id number], [id number], [id number] #### [facility] [address] [place] [address] RBC 4.4 E12/L Normal 4.3-5.9 [facility] Comment on above: Performed By: #### 1 [id number], [id number], [id number], [id number] #### [facility] [address] [place] [address] WBC 5.7 E9/L Normal 4.0-11.0 [facility] Comment on above: Performed By: #### 1 [id number], 3103110, [id number], 7358636 #### [facility] [address] [place] [address] CHEMISTRYOrdered By: SYSTEM SYSTEM on 03-29-2023 Anion [...] 33.2 s Normal 25.1 - 36.5 second(s) [facility] Auto Coag Comment on above: Interpretive Data: P hoseameter 15 days - 4 weeks 1 - [...] the same coagulation reagent and instrumentation as [facility]. Currently there are no coagulation studies available worldwide for children to 14 days, and no normal ranges. Heparin therapeutic range (represented by Anti-Factor Xa activity of 0.2 - 0.4 U/mL) corresponds to PTT of 56.6 - 109.0 sec. INR Coag (PPP) [Relative time] 1.1 {INR} Invalid Interpretation Code [facility] Auto Co[employer] Comment on above: Interpretive Data: I NR results are specifically intended to assess patients stabilized on long-term Anticoagulation therapy suggested INR s Less Intensive Anticoagulation 2.0 3.0 Conventional Range 3.0 4.5 PT Coag (PPP) [Time] 12.0 s Normal 9.4 - 1 2.5 second(s) [facility] [employer] Comment on above: Interpretive Data: [...] the same coagulation reagent and instrumentation as [facility]. Currently there are no coagulation studies available worldwide for children to 14 days, and no normal ranges. Consent for Treatmenton Consent for Treatment [id number] 0TIFF Normal [facility] HEMATOLOGYOrdered By: SYSTEM SYSTEM on [...] Normal 80.0 - 100.0 fL Remisol Heme Smith Absolute 0.6 E9/L Normal 0.2 - 1.0 [...] Coag (PPP) [Time] 33.2 second(s) Normal 25.1-36.5 [facility] Comment on above: Result Comment: [...] the same coagulation reagent and instrumentation as [facility]. Currently there are no coagulation studies available worldwide for children to 14 days, and no normal ranges. Heparin therapeutic range (represented by Anti-Factor Xa activity of 0.2 - 0.4 U/mL) corresponds to PTT of 56.6 - 109.0 sec. Performed By: #### 1 [id number], [id number], [id number], [id number] #### [facility] [address] [place] [address] INR Coag (PPP) [Relative time] 1.1 {INR} Invalid Interpretation Code [facility] Comment on above: Result Comment: INR results are specifically intended to assess patients stabilized on long-term Anticoagulation therapy suggested INR?s ?Less Intensive Anticoagulation? 2.0 ? 3.0 Conventional Range 3.0 ? 4.5 Performed By: #### 1 [id number], [id number], [id number], [id number] #### [facility] [address] [place] [address] PT Coag (PPP) [Time] 12.0 second(s) Normal 9.4-12.5 [facility] Comment on above: Result Comment: [...] the same coagulation reagent and instrumentation as [facility]. Currently there are no coagulation studies available worldwide for children to 14 days, and no normal ranges. Performed By: #### 1 [id number], [id number], [id number], [id number] #### [facility] [address] [place] [address] UA With Cult Reflexon 2023 Bacteria LM Ql (Urine sed) TRACE Normal Trace [facility] Comment on above: Performed By: #### 1 [id number] ####[facility] [address] [place] [address] Bilirubin Ql (U) Negative Normal Negative [facility] Comment on above: Performed By: #### 1 [id number] ####[place] [address] [place] [address] Clarity (U) CLEAR Normal Clear [facility] Comment on above: Performed By: #### 1 [id number] ####[address] [address] Color (U) YELLOW Normal Yellow [facility] Comment on above: Performed By: #### 1 [id number] ####[address] [address] Epithelial cells.squamous LM.HPF (Urine sed) [#/Area] 5-8 Normal 0-2 [facility] Comment on above: Performed By: #### 1 [id number] ####[facility] [address] [place] [address] Glucose Test strip (U) [Mass/Vol] Negative Normal Negative [facility] Comment on above: Performed By: #### 1 [id number] ####[facility] [address] [place] [address] Hemoglobin Ql (U) TRACE Abnormal Negative [facility] Comment on above: Performed By: #### 1 [id number] ####[facility] [address] [place] [address] Ketones (U) [Mass/Vol] Negative Normal Negative [facility] Comment on above: Performed By: #### 1 [id number] ####[facility] [address] [place] [address] [place].plasma/Lithiu m.RBC (Bld) [Mass ratio] 4-20 Normal 0-3 [facility] Comment on above: Performed By: #### 1 [id number] ####[address] [place] [address] Nitrite Ql (U) Negative Normal Negative [facility] Comment on above: Performed By: #### 1 [id number] ####[facility] [address] [place] [address] pH (U) 6.5 [pH] Invalid Interpretation Code 5.0-9.0 [facility] Comment on above: Performed By: #### 1 [id number] ####[facility] [address] [place] [address] Protein (U) [Mass/Vol] Negative Normal Negative [facility] Comment on above: Performed By: #### 1 [id number] ####[address] [place] [address] Specific gravity (U) [Rel density] 1.010 Invalid Interpretation Code 1.005-1.030 [facility] Comment on above: Performed By: #### 1 [id number] ####[address] [address] Type of Urine collection method Clean Catch Normal [facility] Comment on above: Performed By: #### 1 [id number] ####[facility] [address] [place] [address] Urobilinogen Qn (U) 0.2 {Kellee'U}/dL Normal 0.0-1.0 [facility] Comment on above: Performed By: #### 1 [id number] ####[facility] [address] [place] [address] WBC Auto Ql (U) Negative Normal Negative [facility] Comment on above: Performed By: #### 1 [id number] ####[facility] [address] [place] [address] WBC LM.HPF (Urine sed) [#/Area] 0-5 Normal 0-5 [facility] Comment on above: Performed By: #### 1 [id number] ####[facility] [address] [place] [address] URINALYSISOrdered By: Fabi Reyna on 03-29-2023 Bacteria [...] AM) Normal Negative [facility] UA Auto SS [place].plasma/Lithiu m.RBC (Bld) [Mass ratio] 4-20 /HPF Normal [...] [facility] UA Auto SS Urobilinogen Qn (U) 0.2851303 {Kellee'U}/dL Normal 0.0 - 1.0 EU/dL [facility] UA Auto SS WBC Auto Ql (U) Negative (03/29/23 11:01 AM) Normal Negative [facility] UA Auto SS WBC LM.HPF (Urine sed) [#/Area] 0-5 /HPF Normal 0-5/HPF [facility] UA Auto SS eGFRon 03-29-2023 eGFR 107 mL/min/1.73 m2 Normal >=59 [facility] Comment on above: Order Comment: Order added by Discern Expert. Performed By: #### 1 [id number], [id number], [id number], [id number] #### [facility] [address] [place] [address] RAD - CT Reporton 03-22-2023 RAD - CT Report [id number]#1. 00TIFF Normal [facility] RAD - MISCon 03-22-2023 RAD - MISC [id number]#1. 00TIFF Normal [facility] Formson 03-20-2023 Forms [id number]#1.0 0TIFF Normal [facility] Ambulatory Visit Summaryon 0 03-19-2023 Ambulatory Visit [...] When: Comments: Schedule stone procedure Where: [address] [facility] [address] [place] [address]- Medications What How Much When Instructions Unchanged [...] ? 8 oz (237 mL) of milk, xtfoffb-wxnjxznroezb-q airy milk, and calcium-fortifiedfruit juice. Calcium-fortified means [...] ? Spin (more content not included)... Normal [facility] Formson 03-19-2023 Forms [id number] [address] [id number]#1.[address] [facility] Patient Educationon 03-19-19 24 Patient Education [...] ? 8 oz (237 mL) of milk, wjeuvdq-mhcxasjxwjgs-f airy milk, and calcium-fortifiedfruit juice. Calcium-fortified means [...] Spinach (cooked), rhubarb, beets, sweet potatoes, and [place] chard. ? Peanuts. ? Potato chips, montenegrin fries, and baked potatoes with skin on. ? Nuts and nut products. ? Chocolate. ? If you regularly take a diuretic medicine, make sure to eat at least 1 or 2 servings of fruits or vegetables that are high in potassium each day. These include: ? Avocado. ? Banana. ? [place], prune, carrot, or tomato juice. ? Baked [...] fish oil, or vitamin B6. ? Take csmi-tnx-trvqgif and prescription medicines only as told by your health care provider. These include supplements. What foods sh (more content not included)... Normal [facility] RAD - MISCon 03-19-2023 [facility] [id number]#1.0 0TIFF Normal [facility] Urology Office/Clinic Noteon 03-19-2023 Urology Office/Clinic Note Chief Complaint F/U with [facility] Staff New Pt. Pt was last seen on 12/23/2019. Pt was seen at [facility] on 01/22/23 due to left sided [...] Calculus of kidney) Pt was seen at [facility] on 01/22/23 due to left sided [...] Contact Information Viral CLAROS MD, URL [address] [place] [id number]- Additional Instructions: Schedule stone procedure Patient Education Dietary Guidelines to Help Prevent Kidney (more content not included)... Normal [facility] Comment on above: Result Comment: Elec tronically Signed By: Viral CLAROS MD\.br\Date and Time Signed: 03/19/23 10:22 EST\.br\Electronically Co-Signed By: Suzan Riley\.br\Date and Time Co-Signed: 03/19/23 10:19 EST ED Note-Physicianon 02-04-20 23 ED Note-Physician [id number] 20 [id number]#1.0 0TIFF Normal [facility] PREG QUANT HCGon 05-18-2022 HCG QUANT <1 Normal [facility] Comment on above: Performed By: #### P REGQNT #### [facility] [address] [place] [address] [address] Michael Vigil HCG RANGE SEE BELOW [facility] Comment on above: Result Comment: 5-50 0.2-1 WEEK 50-500 1-2 WEEKS 100-5,000 2-3 WEEKS 500-10,000 3-4 WEEKS 1,000-50,000 4-5 WEEKS 10,000-100,000 5-6 WEEKS 15,000-200,000 6-8 WEEKS 10,000-100,000 2-3 MONTHS Performed By: #### P REGQNT #### [facility] [address] [place] [address] Dr. Michael Vigil CBC AUTO DIFFon 08-31-2021 BASO # 0.1 103/ul Normal 0.0-0.1 [facility] Comment on above: Performed By: #### C BC #### [facility] [address] [place] [address] Dr. Michael Vigil Basophils/100 WBC (Bld) 0.5 % Normal 0.2-2.0 [facility] Comment on above: Performed By: #### C BC #### [facility] [address] [place] [address] Dr. Michael Vigil EO # 0.1 103/ul Normal 0.0-0.7 [facility] Comment on above: Performed By: #### C BC #### [facility] [address] [place] [address] Dr. Michael Vigil Eosinophils/100 WBC (Bld) 1.3 % Normal 0.9-7.0 [facility] Comment on above: Performed By: #### C BC #### [facility] [address] [place] [address] Dr. Michael Vigil Erythrocyte distribution width (RBC) [Ratio] 12.5 % Normal 11.0-15.0 [facility] Comment on above: Performed By: #### C BC #### [facility] [address] [place] [address] Dr. Michael Vigil Hematocrit (Bld) [Volume fraction] 43.9 % Normal 36.0-48.0 [facility] Comment on above: Performed By: #### C BC #### [facility] [address] [place] [address] Dr. Michael Vigil Hemoglobin (Bld) [Mass/Vol] 14.7 g/dL Normal 12.0-16.0 [facility] Comment on above: Performed By: #### C BC #### [facility] [address] [place] [address] Dr. Michael Vigil IG # 0.03 10e3/ul Normal 0.00-0.03 [facility] Comment on above: Performed By: #### C BC #### [facility] [address] [place] [address] Dr. Michael Vigil IG % 0.3 % Normal 0.0-0.5 [facility] Comment on above: Performed By: #### C BC #### [facility] [address] [place] [address] Dr. Michael Vigil LYMPH # 3.0 103/ul Normal 1.2-3.8 [facility] Comment on above: Performed By: #### C BC #### [facility] [address] [place] [address] Dr. Michael Vigil Lymphocytes/100 WBC (Bld) 32.0 % Normal 20.5-60.0 [facility] Comment on above: Performed By: #### C BC #### [facility] [address] [place] [address] Dr. Michael Vigil MANUAL DIFF REQ NO Normal [facility] Comment on above: Performed By: #### C BC #### [facility] [address] [place] [address] Dr. Michael Vigil MCH (RBC) [Entitic mass] 30.2 pg Normal 26.7-34.0 [facility] Comment on above: Performed By: #### C BC #### [facility] [address] [place] [address] Dr. Michael Vigil MCHC (RBC) [Mass/Vol] 33.5 g/dL Normal 29.9-35.2 [facility] Comment on above: Performed By: #### C BC #### [facility] [address] [place] [address] Dr. Michael Vigil MCV (RBC) [Entitic vol] 90.1 fL Normal 81.0-99.0 [facility] Comment on above: Performed By: #### C BC #### [facility] [address] [place] [address] Dr. Michael Vigil MONO # 0.7 103/ul Normal 0.3-0.8 [facility] Comment on above: Performed By: #### C BC #### [facility] [address] [address] [address] Michael Vigil Monocytes/100 WBC (Bld) 7.8 % Normal 1.7-12.0 [facility] Comment on above: Performed By: #### C BC #### [facility] [address] [address] [address] Michael Vigil NEUT # 5.3 103/ul Normal 1.4-6.5 [facility] Comment on above: Performed By: #### C BC #### [facility] [address] [place] [address] Dr. Michael Vigil Neutrophils/100 WBC (Bld) 58.1 % Normal 43.0-75.0 [facility] Comment on above: Performed By: #### C BC #### [facility] [address] [place] [address] Dr. Michael Vigil Platelet mean volume (Bld) [Entitic vol] 10.3 fL Normal 9.5-13.5 [facility] Comment on above: Performed By: #### C BC #### [facility] [address] [place] [address] Dr. Michael Vigil PLT 292 103/ul Normal 150-450 [facility] Comment on above: Performed By: #### C BC #### [facility] [address] [place] [address] Dr. Michael Vigil RBC 4.87 106/ul Normal 4.20-5.40 [facility] Comment on above: Performed By: #### C BC #### [facility] [address] [place] [address] Dr. Michael Vigil WBC 9.2 103/ul Normal 4.0-11.0 [facility] Comment on above: Performed By: #### C BC #### [facility] [address] [place] [address] Dr. Michael Vigil PROF CHEM 8 (BAS METB)on Anion gap [Moles/Vol] 12.3 mmol/L Normal Th [facility] Comment on above: Performed By: #### B MP #### [facility] [address] [address] [address] Michael Vigil Calcium [Mass/Vol] 9.1 mg/dL Normal 8.5-10.1 [facility] Comment on above: Performed By: #### B MP #### [facility] [address] [address] [address] Michael Vigil Chloride [Moles/Vol] 106 mmol/L Normal 98-107 [facility] Comment on above: Performed By: #### B MP #### [facility] [address] [address] [address] Michael Vigil CO2 [Moles/Vol] 26.0 mmol/L Normal 21.0-32.0 [facility] Comment on above: Performed By: #### B MP #### [facility] [address] [place] [address] Dr. Michael Vigil Creatinine [Mass/Vol] 0.97 mg/dL Normal 0.55-1.02 [facility] Comment on above: Performed By: #### B MP #### [facility] [address] [address] [address] Michael Vigil EGFR-AF GUATEMALAN >60 Normal >=60 [facility] Comment on above: Performed By: #### B MP #### [facility] [address] [address] [address] Michael Vigil EGFR-NON AF GUATEMALAN >60 Normal >=60 [facility] Comment on above: Performed By: #### B MP #### [facility] [address] [address] [address] Michael Vigil Glucose [Mass/Vol] 96 mg/dL Normal 74-106 [facility] Comment on above: Performed By: #### B MP #### [facility] [address] [address] [address] Michael Vigil Potassium [Moles/Vol] 4.3 mmol/L Normal 3.5-5.1 [facility] Comment on above: Performed By: #### B MP #### [facility] [address] [address] [address] Michael Vigil Sodium [Moles/Vol] 140 mmol/L Normal 136-[address] [facility] Comment on above: Performed By: #### B MP #### [facility] [address] [address] [address] Michael Vigil Urea nitrogen [Mass/Vol] 18.0 mg/dL Normal 6.4-19.3 [facility] Comment on above: Performed By: #### B MP #### [facility] [address] [address] [address] Michael Vigil Urea nitrogen/Creatinine [Mass ratio] 18.6 mg/mg Normal [facility] Comment on above: Performed By: #### B MP #### [facility] [address] [address] [address] Michael Vigil COVID Quick Testingon 2020 Result Negative [employer] [facility] [employer] Other Quick Strepon 02-09-2021 S. pyogenes Org specific cx Ql (Throat) Negative [facility] [employer] Other Quick Strep [facility] [employer] Other Vital Signs Date Time Vital Sign Value Performing Clinician Facility 08-19-2024 11:36-0400 Body height 160 cm [employer] Work Phone: [facility] 08-19-2024 11:36-0400 Body mass index (BMI) [Ratio] 39.33 kg/m2 [employer] Work Phone: [facility] 08-19-2024 11:36-0400 Body weight 100.7 kg [employer] Work Phone: [facility] 08-19-2024 11:36-0400 Diastolic blood pressure 80 mm[Hg] [employer] Work Phone: [facility] 08-19-2024 11:36-0400 Systolic blood pressure 132 mm[Hg] [employer] Work Phone: [facility] 03-06-2024 10:06-0500 Body height 160.02 cm [facility] 03-06-2024 10:06-0500 Body mass index (BMI) [Ratio] 39.8 kg/m2 [facility] 03-06-2024 10:06-0500 Body weight 102.05 kg [facility] 03-06-2024 10:06-0500 Diastolic blood pressure 100 mm[Hg] [facility] 03-06-2024 10:06-0500 Heart rate 68 /min [facility] 03-06-2024 10:06-0500 Systolic blood pressure 140 mm[Hg] [facility] 12-13-2023 08:58-0400 Body height 160.02 cm [facility] 12-13-2023 08:58-0400 Body mass index (BMI) [Ratio] 36.8 kg/m2 [facility] 12-13-2023 08:58-0400 Body temperature 97.9 [degF] [facility] 12-13-2023 08:58-0400 Body weight 94.34 kg [facility] 12-13-2023 08:58-0400 Diastolic blood pressure 97 mm[Hg] [facility] 12-13-2023 08:58-0400 Heart rate 75 /min [facility] 12-13-2023 08:58-0400 SaO2% (BldA) [Mass fraction] 98 % [facility] 12-13-2023 08:58-0400 Systolic blood pressure 134 mm[Hg] [facility] 11-14-2023 11:37-0400 Body height 160.02 cm [facility] 11-14-2023 11:37-0400 Body mass index (BMI) [Ratio] 36.3 kg/m2 [facility] 11-14-2023 11:37-0400 Body weight 92.98 kg [facility] 11-14-2023 11:37-0400 Diastolic blood pressure 91 mm[Hg] [facility] 11-14-2023 11:37-0400 Heart rate 97 /min [facility] 11-14-2023 11:37-0400 Systolic blood pressure 152 mm[Hg] [facility] 07-17-2023 11:53-0400 Body height 160.02 cm [facility] 07-17-2023 11:53-0400 Body mass index (BMI) [Ratio] 34.2 kg/m2 [facility] 07-17-2023 11:53-0400 Body weight 87.54 kg [facility] 07-17-2023 11:53-0400 Diastolic blood pressure 100 mm[Hg] [facility] 07-17-2023 11:53-0400 Heart rate 83 /min [facility] 07-17-2023 11:53-0400 Systolic blood pressure 137 mm[Hg] [facility] 06-13-2023 13:50-0400 Blood Pressure Location Viral CLAROS [facility] 06-13-2023 13:50-0400 Body temperature 97.7 [degF] Viral CLAROS [facility] 06-13-2023 13:50-0400 Diastolic blood pressure 114 mm[Hg] Viral CLAROS [facility] 06-13-2023 13:50-0400 Heart rate 60 /min Viral CLAROS [facility] 06-13-2023 13:50-0400 Mean blood pressure 127 mm[Hg] Viral CLAROS [facility] 06-13-2023 13:50-0400 Respiratory rate 20 /min Viral CLAROS [facility] 06-13-2023 13:50-0400 SaO2% (BldA) [Mass fraction] 98 % Viral CLAROS [facility] 06-13-2023 13:50-0400 Systolic blood pressure 153 mm[Hg] Viral CLAROS [facility] 06-13-2023 12:45-0400 Blood Pressure Location Viral Vidmind [facility] 06-13-2023 12:45-0400 Body temperature 97.7 [degF] Viral COOK [facility] 06-13-2023 12:45-0400 Diastolic blood pressure 91 mm[Hg] Viral COOK [facility] 06-13-2023 12:45-0400 Diastolic blood pressure 101 mm[Hg] Viral COOK [facility] 06-13-2023 12:45-0400 Heart rate 73 /min Viral COOK [facility] 06-13-2023 12:45-0400 Heart rate 70 /min Viral COOK [facility] 06-13-2023 12:45-0400 Mean blood pressure 107 mm[Hg] Viral COOK [facility] 06-13-2023 12:45-0400 Mean blood pressure 120 mm[Hg] Viral COOK [facility] 06-13-2023 12:45-0400 Respiratory rate 18 /min Viral COOK [facility] 06-13-2023 12:45-0400 Respiratory rate 16 /min Viral COOK [facility] 06-13-2023 12:45-0400 SaO2% (BldA) [Mass fraction] 97 % Viral COOK [facility] 06-13-2023 12:45-0400 Systolic blood pressure 138 mm[Hg] Viral COOK [facility] 06-13-2023 12:45-0400 Systolic blood pressure 159 mm[Hg] Viral COOK [facility] 06-13-2023 12:30-0400 Respiratory rate 14 /min Viral COOK [facility] 06-13-2023 12:17-0400 Body temperature 96.98 [degF] Viral CLAROS [facility] 06-13-2023 12:10-0400 Respiratory rate 15 /min Viral CLAROS [facility] 06-13-2023 12:05-0400 Respiratory rate 16 /min Viral CLAROS [facility] 06-13-2023 09:59-0400 Mean blood pressure 123 mm[Hg] Viral CLAROS [facility] 06-13-2023 09:59-0400 Heart rate 80 /min Viral CLAROS [facility] 06-13-2023 09:58-0400 Mean blood pressure 102 mm[Hg] Viral CLAROS [facility] 05-20-2023 14:30-0400 Diastolic blood pressure 106 mm[Hg] [facility] 05-20-2023 14:30-0400 Heart rate 69 /min [facility] 05-20-2023 14:30-0400 Mean blood pressure 119 mm[Hg] [facility] 05-20-2023 14:30-0400 Respiratory rate 20 /min [facility] 05-20-2023 14:30-0400 SaO2% (BldA) [Mass fraction] 98 % [facility] 05-20-2023 14:30-0400 Systolic blood pressure 144 mm[Hg] [facility] 05-20-2023 14:00-0400 Diastolic blood pressure 110 mm[Hg] [facility] 05-20-2023 14:00-0400 Heart rate 70 /min [facility] 05-20-2023 14:00-0400 Mean blood pressure 121 mm[Hg] [facility] 05-20-2023 14:00-0400 Respiratory rate 18 /min [facility] 05-20-2023 14:00-0400 SaO2% (BldA) [Mass fraction] 99 % [facility] 05-20-2023 14:00-0400 Systolic blood pressure 142 mm[Hg] [facility] 05-20-2023 13:00-0400 Diastolic blood pressure 98 mm[Hg] [facility] 05-20-2023 13:00-0400 Mean blood pressure 113 mm[Hg] [facility] 05-20-2023 11:36-0400 Body temperature 97.88 [degF] [facility] 05-20-2023 11:36-0400 Heart rate 82 /min [facility] 04-23-2023 15:03-0500 Body height 160.02 cm [facility] 04-23-2023 15:03-0500 Body mass index (BMI) [Ratio] 35.6 kg/m2 [facility] 04-23-2023 15:03-0500 Body weight 91.28 kg [facility] 04-23-2023 15:03-0500 Diastolic blood pressure 92 mm[Hg] [facility] 04-23-2023 15:03-0500 Heart rate 71 /min [facility] 04-23-2023 15:03-0500 SaO2% (BldA) [Mass fraction] 97 % [facility] 04-23-2023 15:03-0500 Systolic blood pressure 127 mm[Hg] [facility] 04-18-2023 10:48-0500 SaO2% (BldA) [Mass fraction] 98 % Viral CLAROS [facility] 04-18-2023 10:41-0500 Heart rate 53 /min Viral CLAROS [facility] 04-18-2023 10:41-0500 SaO2% (BldA) [Mass fraction] 99 % Viral CLAROS [facility] 04-18-2023 10:41-0500 Diastolic blood pressure 85 mm[Hg] Viral CLAROS [facility] 04-18-2023 10:41-0500 Mean blood pressure 104 mm[Hg] Viral CLAROS [facility] 04-18-2023 10:41-0500 Systolic blood pressure 140 mm[Hg] Viral CLAROS [facility] 04-18-2023 10:40-0500 Respiratory rate 18 /min Viral CLAROS [facility] 04-18-2023 10:35-0500 Blood Pressure Location Viral CLAROS [facility] 04-18-2023 10:35-0500 Body temperature 97.88 [degF] Viral CLAROS [facility] 04-18-2023 10:35-0500 Diastolic blood pressure 101 mm[Hg] Viral CLAROS [facility] 04-18-2023 10:35-0500 Heart rate 59 /min Viral CLAROS [facility] 04-18-2023 10:35-0500 Mean blood pressure 119 mm[Hg] Virla CLAROS [facility] 04-18-2023 10:35-0500 Respiratory rate 15 /min Viral CLAROS [facility] 04-18-2023 10:35-0500 SaO2% (BldA) [Mass fraction] 97 % Viral CLAROS [facility] 04-18-2023 10:35-0500 Systolic blood pressure 154 mm[Hg] Viral COOK [facility] 04-18-2023 10:20-0500 Blood Pressure Location Viral COOK [facility] 04-18-2023 10:20-0500 Diastolic blood pressure 87 mm[Hg] Viral COOK [facility] 04-18-2023 10:20-0500 Heart rate 66 /min Viral COOK [facility] 04-18-2023 10:20-0500 Mean blood pressure 107 mm[Hg] Viral COOK [facility] 04-18-2023 10:20-0500 Respiratory rate 20 /min Viral COOK [facility] 04-18-2023 10:20-0500 Systolic blood pressure 146 mm[Hg] Viral COOK [facility] 04-18-2023 10:15-0500 Blood Pressure Location Viral CLAROS [facility] 04-18-2023 10:15-0500 Mean blood pressure 120 mm[Hg] Viral COOK [facility] 04-18-2023 10:15-0500 Respiratory rate 11 /min Viral COOK [facility] 04-18-2023 10:07-0500 Body temperature 97.88 [degF] Viral COOK [facility] 04-18-2023 10:00-0500 Respiratory rate 13 /min Viral COOK [facility] 04-18-2023 09:55-0500 Respiratory rate 15 /min Viral COOK [facility] 04-18-2023 07:52-0500 Mean blood pressure 101 mm[Hg] Viral COOK [facility] 04-18-2023 07:51-0500 Body temperature 97.52 [degF] Viral CLAROS [facility] 04-18-2023 07:51-0500 Mean blood pressure 110 mm[Hg] Viral CLAROS [facility] 03-29-2023 10:57-0500 Diastolic blood pressure 91 mm[Hg] Viral CLAROS [facility] 03-29-2023 10:57-0500 Heart rate 79 /min Viral CLAROS [facility] 03-29-2023 10:57-0500 Mean blood pressure 107 mm[Hg] Viral CLAROS [facility] 03-29-2023 10:57-0500 Systolic blood pressure 139 mm[Hg] Viral CLAROS [facility] 03-29-2023 10:56-0500 Heart rate 76 /min Viral CLAROS [facility] 03-29-2023 10:56-0500 SaO2% (BldA) [Mass fraction] 97 % Viral CLAROS [facility] 03-29-2023 10:56-0500 Diastolic blood pressure 104 mm[Hg] Viral CLAROS [facility] 03-29-2023 10:56-0500 Mean blood pressure 119 mm[Hg] Viral CLAROS [facility] 03-29-2023 10:56-0500 Systolic blood pressure 150 mm[Hg] Viral CLAROS [facility] 03-19-2023 14:47-0500 Body mass index (BMI) [Ratio] 36.46 kg/m2 Ramylul Gar DO Work Phone: [facility] 03-19-2023 14:47-0500 Body weight 93.35 kg Ramy Cong DO Work Phone: [facility] 03-19-2023 14:47-0500 Diastolic blood pressure 82 mm[Hg] Ramy Cong DO Work Phone: [facility] 03-19-2023 14:47-0500 Systolic blood pressure 120 mm[Hg] Ramy Cong DO Work Phone: [facility] 03-19-2023 09:25-0500 Blood Pressure Location Viral [employer] [facility] 03-19-2023 09:25-0500 Diastolic blood pressure 84 mm[Hg] Viral [facility] 03-19-2023 09:25-0500 Systolic blood pressure 130 mm[Hg] Viral [employer] [facility] 01-29-2023 08:30-0500 Body weight 91.17 kg Gaye Dill Other [facility] [employer] Other 01-29-2023 08:30-0500 Diastolic blood pressure 84 mm[Hg] Gaye Dill Other [employer] [facility] [employer] Other 01-29-2023 08:30-0500 Systolic blood pressure 139 mm[Hg] Gaye Dill Other [employer] [facility] [employer] Other 07-18-2022 11:45-0400 Body height 160.02 cm Gaye Dill Other [employer] Other 07-18-2022 11:45-0400 Body mass index (BMI) [Ratio] 32.41 kg/m2 Gaye Dill Other [employer] Other 07-18-2022 11:45-0400 Body weight 83.01 kg Gaye Dill Other [employer] Other 07-18-2022 11:45-0400 Diastolic blood pressure 86 mm[Hg] Gaye Dill Other [employer] Other 07-18-2022 11:45-0400 Systolic blood pressure 145 mm[Hg] Gaye Dill Other [employer] Other 06-25-2022 15:45-0400 Body height 160.02 cm Gaye Dill Other [employer] Other 06-25-2022 15:45-0400 Body mass index (BMI) [Ratio] 31.7 kg/m2 Gaye Dill Other [employer] Other 06-25-2022 15:45-0400 Body weight 81.19 kg Gaye Dill Other [employer] Other 06-25-2022 15:45-0400 Diastolic blood pressure 80 mm[Hg] Gaye Dill Other [employer] Other 06-25-2022 15:45-0400 SaO2% (BldA) [Mass fraction] 99 % Gaye Dill Other [employer] Other 06-25-2022 15:45-0400 Systolic blood pressure 132 mm[Hg] Gaye Dill Other [employer] Other 02-09-2021 17:45-0500 Body height 160.02 cm Columba Fernandes Other [employer] Other 02-09-2021 17:45-0500 Body mass index (BMI) [Ratio] 33.65 kg/m2 Columba Fernandes Other [employer] Other 02-09-2021 17:45-0500 Body temperature 97.3 [degF] Columba Fernandes Other [employer] Other 02-09-2021 17:45-0500 Body weight 86.18 kg Columba Fernandes Other [employer] Other 02-09-2021 17:45-0500 Respiratory rate 18 /min Columba Fernandes Other [employer] Other 02-09-2021 17:45-0500 SaO2% (BldA) [Mass fraction] 99 % Columba Fernandes Other [employer] Other Encounters Encounter Date Encounter Type Care Provider Facility Start: 11-25-2024 ambulatory Viral CLAROS Facility :[facility] Start: 08-19-2024 End: 08-19-2024 Bamboo flowsheet Ramy Cong DO Work Phone: [facility] Start: 08-19-2024 End: 08-20-2024 Bamboo flowsheet Ramy Cong DO Work Phone: [facility] Start: 08-19-2024 End: 08-20-2024 Clinisync Result Encounter Ramy Cong DO Work Phone: [facility] Unsolicited Start: 08-19-2024 End: 08-19-2024 ambulatory RAMY CONG Not Available Start: 08-19-2024 End: 08-19-2024 Patient encounter procedure Ramy Cong DO Work Phone: [facility] Start: 08-19-2024 End: 08-19-2024 Periodic preventive med est patient 18-39 yrs Ramy Cong DO Work Phone: [facility] Comment on above: Well woman exam with routine gynecological exam; Female infertility; Amenorrhea; PCOS (polycystic ovarian syndrome) Start: 05-30-2024 End: 05-30-2024 Emergency department patient visit GAYE DILL [facility] Start: 03-06-2024 End: 03-06-2024 ambulatory [facility] Work Phone: Start: 03-06-2024 End: 03-06-2024 Patient encounter procedure [facility] Work Phone: Start: 03-04-2024 Non-patient / Non-visit [facility] Work Phone: Start: 12-13-2023 End: 12-13-2023 ambulatory [facility] Work Phone: Start: 12-13-2023 End: 12-13-2023 Patient encounter procedure [facility] Work Phone: Start: 11-20-2023 End: 11-20-2023 ambulatory Viral CLAROS Facility:[facility] Start: 11-20-2023 End: 11-20-2023 Patient encounter procedure Viral CLAROS [facility] Start: 11-19-2023 End: 11-19-2023 ambulatory Viral CLAROS Facility:[facility] Start: 11-14-2023 End: 11-14-2023 [facility] Work Phone: Start: 11-14-2023 End: 11-14-2023 Patient encounter procedure [facility] Work Phone: Start: 11-04-2023 End: 11-04-2023 Emergency department patient visit GAYE DILL [facility] Start: 07-17-2023 End: 07-17-2023 ambulatory [facility] Work Phone: Start: 07-17-2023 End: 07-17-2023 Patient encounter procedure [facility] Work Phone: Start: 06-13-2023 End: 06-13-2023 Admission to same day surgery center Viral CLAROS [facility] Start: 06-13-2023 End: 06-13-2023 ambulatory Viral CLAROS Facility:[facility] Start: 06-05-2023 End: 06-05-2023 ambulatory Viral CLAROS Facility:[facility] Start: 06-05-2023 End: 06-05-2023 Patient encounter procedure Viral CLAROS [facility] Start: 05-28-2023 End: 05-28-2023 ambulatory [facility] Start: 05-20-2023 End: 05-20-2023 Emergency department patient visit Lawson Carbone [facility] Start: 05-10-2023 End: 05-31-2023 Pre-admission assessment Viral CLAROS [facility] Start: 04-26-2023 Non-patient / Non-visit [facility] Work Phone: Start: 04-23-2023 End: 04-23-2023 Patient encounter procedure [facility] Work Phone: Start: 04-18-2023 End: 04-18-2023 Admission to same day surgery center Viral CLAROS [facility] Start: 04-18-2023 End: 04-18-2023 ambulatory Viral CLAROS Facility:[facility] Start: 03-29-2023 End: 03-29-2023 ambulatory Viral CLAROS Facility:[facility] Start: 03-29-2023 End: 03-29-2023 Patient encounter procedure Viral CLAROS [facility] Start: 03-19-2023 End: 03-19-2023 Patient encounter procedure Ramy Coopero DO Work Phone: [facility] Start: 03-19-2023 End: 03-19-2023 Periodic preventive med est patient 18-39 yrs Ramy Coopero DO Work Phone: [facility] Comment on above: Well woman exam with routine gynecological exam Start: 03-19-2023 End: 03-19-2023 ambulatory Viral CLAROS Facility:[facility] Start: 03-19-2023 End: 03-19-2023 Patient encounter procedure Viral CLAROS [facility] Start: 03-11-2023 End: 03-11-2023 ambulatory Gaye Dill Other [employer] Other Start: 03-11-2023 Telephone encounter Gaye Dill [facility] Start: 02-22-2023 End: 02-22-2023 ambulatory Gaye Dill Other [employer] Other Start: 02-22-2023 Telephone encounter Gaye Dill [facility] Start: 02-21-2023 End: 02-21-2023 ambulatory Gaye Dill Other [employer] Other Start: 02-21-2023 Telephone encounter Gaye Dill [facility] Start: 01-29-2023 End: 01-29-2023 ambulatory Gaye Dill Other [employer] Other Start: 01-29-2023 Office outpatient vi sit 25 minutes Gaye Dill [facility] Start: 11-16-2022 End: 11-16-2022 ambulatory Gaye Dill Other [employer] Other Start: 11-16-2022 Telephone encounter Gaye Dill [facility] Start: 08-27-2022 End: 08-27-2022 ambulatory Gaye Dill Other [employer] Other Start: 08-27-2022 Telephone encounter Gaye Dill [facility] Start: 08-23-2022 End: 08-23-2022 ambulatory Gaye Dill Other [employer] Other Start: 08-23-2022 Telephone encounter Gaye Dill [facility] Start: 07-18-2022 End: 07-18-2022 ambulatory Gaye Dill Other [employer] Other Start: 07-18-2022 Office outpatient vi sit 15 minutes Gaye Dill [facility] Start: 06-25-2022 End: 06-25-2022 ambulatory Gaye Dill Other [employer] Other Start: 06-25-2022 Office outpatient vi sit 10 minutes Gaye Dill [facility] Start: 05-18-2022 Telephone encounter Gaye Dill [facility] Start: 05-18-2022 End: 05-19-2022 ambulatory GAYE Hatch FUENTES [employer] Other Start: 04-10-2022 End: 04-10-2022 ambulatory Gaye Dill Other [employer] Other Start: 04-10-2022 Telephone encounter Gaye Dill [facility] Start: 04-02-2022 End: 04-02-2022 ambulatory Gaye Dill Other [employer] Other Start: 04-02-2022 Telephone encounter Gaye Dill [facility] Start: 03-30-2022 End: 03-30-2022 ambulatory Gaye Dill Other [employer] Other Start: 03-30-2022 Telephone encounter Gaye Dill [facility] Start: 03-14-2022 ambulatory GAYE DILL Facility :[facility] Start: 02-26-2022 End: 02-26-2022 ambulatory Gaye Dill Other [employer] Other Start: 02-26-2022 Telephone encounter Gaye Dill [facility] Start: 08-31-2021 End: 08-31-2021 ambulatory GAYE DILL Facility:[facility] Start: 02-09-2021 End: 02-09-2021 ambulatory Columba Dena Other [employer] Other Start: 02-09-2021 Office outpatient vi sit 15 minutes Columba Fernandes [facility] Start: 12-02-2018 Well child visit Gaye Dill Other [employer] Other Start: 08-12-2018 End: 08-12-2018 Emergency department patient visit [facility] Procedures Date Procedure Procedure Detail Performing Clinician Start: 08-19-2024 TBH PROLACTIN Ramy Mcihoacano io DO Work Phone: Start: 08-19-2024 Urnls dip stick/tabl et rgnt non-auto w/o micrscp Ramy Cong DO Work Phone: Start: 06-13-2023 Transurethral cystoscopy Viral CLAROS Comment [...] erine contraceptive device Gaye Dill Other Lithotripsy Lawson Carbone Placement of stent Stent placement 2 Astr mello Carbone Comment on above: stent in ureter visit Gaye Dill Other End: 06-29-2021 Removal of intrauterine device Gaye Dill Other Tonsillectomy Viral CLAROS Tooth structure (bod y structure) Viral CLAROS Plan of Treatment Date Care Activity Detail Author Start: 09-15-2024 End: 09-15-2024 Patient encounter procedure 09/15/2024 10:50 AM EDT Office Visit [facility] [address] [id number] Ramy Gar DO [address] [place] [address] [facility] Start: 08-19-2024 End: 08-19-2025 DHEA DHEA Lab Routine PCOS (polycystic ovarian syndrome) Expected: 08/19/2024 (Approximate), Expires: 08/19/2025 [facility] Comment on above: Expected: 08/19/2024 (Approximate), Expires: 08/19/2025 Start: 08-19-2024 End: 08-19-2025 US Pelvis US Pelvis w/ TV Imaging Routine PCOS (polycystic ovarian syndrome) Expected: 08/19/2024, Expires: 08/19/2025 [facility] Comment on above: Expected: 08/19/2024 , Expires: 08/19/2025 Start: 05-03-2023 End: 05-03-2023 Clinical Support 05/03/2023 10:10 AM EDT Clinical Support [facility] [address] [place] [id number] [facility] CBC W Auto Different ial panel - Blood CBC and differential Lab Routine PCOS (polycystic ovarian syndrome) Ordered: 08/19/2024 [facility] Comment on above: Ordered: 08/19/2024 Cytology Cervical or vaginal smear or scraping study Pap Smear Pathology and Cytology Routine Well woman exam with routine gynecological exam Ordered: 03/19/2023 [facility] Work Phone: Comment on above: Ordered: 03/19/2023 Cytology Cervical or vaginal smear or scraping study Pap Smear Pathology and Cytology Routine Well woman exam with routine gynecological exam Ordered: 08/19/2024 [facility] Work Phone: Comment on above: Ordered: 08/19/2024 DHEA-sulfate DHEA-sulfate Lab Routine PCOS (polycystic ovarian syndrome) Ordered: 08/19/2024 [facility] Comment on above: Ordered: 08/19/2024 Follicle stimulating hormone Follicle stimulating hormone Lab Routine PCOS (polycystic ovarian syndrome) Ordered: 08/19/2024 [facility] Comment on above: Ordered: 08/19/2024 hCG, quantitative, hCG, quantitative, Lab Routine PCOS (polycystic ovarian syndrome) Ordered: 08/19/2024 [facility] Comment on above: Ordered: 08/19/2024 Hemoglobin A1c/Hemoglobin.total in Blood Hemoglobin A1c Lab Routine Amenorrhea Ordered: 08/19/2024 [facility] Comment on above: Ordered: 08/19/2024 Luteinizing hormone Luteinizing hormone Lab Routine PCOS (polycystic ovarian syndrome) Ordered: 08/19/2024 [facility] Comment on above: Ordered: 08/19/2024 Prolactin Prolactin Lab Ro utine Amenorrhea Ordered: 08/19/2024 [facility] Comment on above: Ordered: 08/19/2024 Thyrotropin [Units/volume] in Serum or Plasma TSH Lab Routine PCOS (polycystic ovarian syndrome) Ordered: 08/19/2024 [facility] Comment on above: Ordered: 08/19/2024 Thyroxine (T4) free [Mass/volume] in Serum or Plasma T4, free Lab Routine PCOS (polycystic ovarian syndrome) Ordered: 08/19/2024 [facility] Comment on above: Ordered: 08/19/2024 Immunizations Immunization Date Immunization Notes Care Provider Barney lemus 11-02-2014 diphtheria, tetanus toxoids and acellular pertussis vaccine, unspecified formulation Gaye Dill Other [facility] 10-09-2007 DTaP, unspecified formulation Viral CLAROS [facility] 10-09-2007 poliovirus vaccine, unspecified formulation Viral CLAROS [facility] 10-09-2007 varicella virus vaccine Jarvis CLAROS [facility] 09-27-2005 diphtheria, tetanus toxoids and acellular pertussis vaccine Viral CLAROS [facility] 09-27-2005 measles, mumps and rubella virus vaccine Viral CLAROS [facility] 11-24-2003 DTaP, unspecified formulation Viral CLAROS [facility] 11-24-2003 measles, mumps and rubella virus vaccine Viral CLAROS [facility] 11-24-2003 poliovirus vaccine, unspecified formulation Viral CLAROS [facility] 11-24-2003 varicella virus vaccine Jarvis CLAROS [facility] 2002 DTaP, unspecified formulation Viral CLAROS [facility] 2002 poliovirus vaccine, unspecified formulation Viral CLAROS [facility] 2002 DTaP, unspecified formulation Viral CLAROS [facility] 2002 poliovirus vaccine, unspecified formulation Viral CLAROS [facility] Payers Date Payer Category Payer Medicaid (Managed Care) [facility] [id number] 2022 Medicaid [employer] [facility] [place] [id number] 2022-Present [address] [address] [place] [address] [id number] 2022 Private Health Insurance [employer] [id number] 2022 Unknown [employer] [id number] 2022-Present [address] [place] [address] [id number] 2018 Private Health Insurance [id number] 2002 Unknown [id number] 2.16.840.1.600399.3.579.2. 593 2002 Unknown [id number] 2.16.840.1.575145.3.579.2. 727 2002 Unknown [id number] 2.16.840.1.716647.3.579.2. 727 2002 Unknown [id number] 2.16.840.1.554698.3.579.2. 727 2002 Unknown [id number] 2.16.840.1.503095.3.579.2. 727 2002 Unknown [id number] 2.16.840.1.626196.3.579.2. 727 2002 Unknown [id number] 2.16.840.1.435463.3.579.2. 727 2002 Unknown [id number] 2.16.840.1.812582.3.579.2. 727 2002 Unknown [id number] 2.16.840.1.941439.3.579.2. 727 2002 Unknown [id number] 2.16.840.1.049712.3.579.2. 1286 2002 Unknown [id number] 2.16.840.1.021019.3.579.2. 1286 2002 Unknown [id number] 2.16.840.1.943188.3.579.2. 1286 2002 Unknown [id number] 2.16.840.1.569816.3.579.2. 1259 1980 Unknown [id number] 2.16.840.1.318042.3.579.2. 173 1980 Unknown [id number] 2.16.840.1.865299.3.579.2. 593 1980 Unknown [id number] 2.16.840.1.344482.3.579.2. 593 1980 Unknown [id number] 2.16.840.1.637493.3.579.2. 727 1959 Unknown [id number] .16.840.1.154977.19 1959 Unknown [id number] 2.16.840.1.652723.19 Social History Date Type Detail Facility Start: 08-27-2022 End: 08-19-2024 Sex Assigned At [facility] Start: 08-27-2022 End: 03-19-2023 Tobacco smoking status Never smoked tobacco (finding) [facility] Tobacco smoking status Never [facility] Start: 08-27-2022 Tobacco use and exposure Smokeless tobacco non-user [facility] Start: 03-19-2023 End: 08-19-2024 Alcohol intake Lifetime non-drinker (finding) [facility] Start: 08-27-2022 End: 08-19-2024 History of Social function [facility] [facility] Start: 2002 Sex Assigned At Not on file [facility] Tobacco Current vaping o r e-cigarette use Smokeless Tobacco Use:. Vaping [facility] Tobacco smoking status No Smokin g Status Entered [facility] Start: 2002 Sex Assigned At Female F [facility] Tobacco smoking stat us NHIS Unknown if ever smoked [facility] Work Phone: Start: 03-06-2024 Sex Female (finding) [facility] Medical Equipment Procedure Code Equipment Code [...] Facility 11-20-2023 Functional Status N/A [facility] 06-05-2023 Functional Status N/A [facility] 06-03-2023 Functional Status No [facility] 05-20-2023 Functional Status N/A [facility] 03-29-2023 Functional Status No [facility] 03-19-2023 Functional Status N/A [facility] Clinical Notes 02-09-2021 to 08-19-2024 Snowesther Ambrosio, CAROLYN - 08/19/2024 11:20 AM EDT Note Date & Type Note Facility 08-19-2024 History of Presen t illness Narrative Reason for Appointment: Patient ID: Sunshine Ryder is a 24 y.o. female who presents [...] 07/27/2022 Other specified related conditions, unspecified trimester ([facility]) 07/27/2022 Palpitations 02/01/2022 Pelvic and perineal pain [...] cramping Rh negative state in antepartum period ([facility]) Surveillance for control, intrauterine device HISTORY PAST [...] cramping Rh negative state in antepartum period ([facility]) Surveillance for control, intrauterine device Syncope and collapse Vaginal discharge Social History Tobacco Use Smoking status: Never Smokeless tobacco: Never Substance Use Topics Alcohol use: Never Drug use: Never FAMILY HISTORY Family History Problem Relation Name Age of Onset Hypertension Mother Depression Mother Migraines Mother Hypertension Maternal Grandmother Diabetes Maternal Grandmother Diabetes Paternal Grandmother SURGICAL HISTORY Past Surgical History: Procedure Laterality Date LITHOTRIPSY [place] TONSILLECTOMY & ADENOIDECTOMY <AGE 14 WISDOM TOOTH [...] nursing note reviewed. Exam conducted with a industrial electrical technician present. Vitals: Estimated body mass index is 39.33 kg/m as calculated from the following: Height [...] states she has complaints of no periods, pt given labs and ultrasound orders to have obtained. [...] with those once we have them. Patient can also view results via [employer]. I reinforced importance of condom use for [...] Ramy Gar DO documented in this encounter [facility] 12-13-2023 Evaluation note Diagnosis Onset Date Resolution Adult attention deficit disorder acute December 12 8:55am Sinusitis, acute maxillary acute December 12 8:55am [facility] Work Phone: 1(283) 289-528210-02-2024 Hospital Discharge instructions Patient Education 11/20/2023 15:35:40 [...] include: ?8 oz (237 mL) of milk, iaylowp-hgfloiigymac-fovua milk, and calcium- fortifiedfruit juice. Calcium-fortified means [...] ?Spinach (cooked), rhubarb, beets, sweet potatoes, and Tongan chard. ?Peanuts. ?Potato chips, montenegrin fries, and baked potatoes with skin on. ?Nuts and nut products. ?Chocolate. If you regularly take a diuretic medicine, make sure to eat at least 1 or 2 servings of fruits or vegetables that are high in potassium each day. These include: ?Avocado. ?Banana. ?Napa, prune, carrot, or tomato juice. ?Baked potato. [...] magnesium, fish oil, or vitamin B6. Take cczt-hrj-aqkmotl and prescription medicines only as told by [...] Casseroles. Pizza. Lasagna. Frozen meals. Potato chips. Peruvian fries. The items listed above may not [...] provider. Document Revised: 05/17/2022 Document Reviewed: 05/17/2022 [employer] Patient Education 2023 [employer]. Follow Up Care 10/28/2023 14:26:35 With:SHAWN COOK, Viral Catalan, URL Address: [address] [place] [address]- When: Unknown [facility] 10-02-2024 NotePatient Education Nephrology Dietary Guidelines [...] ? 8 oz (237 mL) of milk, diefzcr-qetwgxsojlvu-drgco milk, and calcium- fortifiedfruit juice. Calcium-fortified means [...] Spinach (cooked), rhubarb, beets, sweet potatoes, and Tongan chard. ? Peanuts. ? Potato chips, montenegrin fries, and baked potatoes with skin on. ? Nuts and nut products. ? Chocolate. ? If you regularly take a diuretic medicine, make sure to eat at least 1 or 2 servings of fruits orvegetables that are high in potassium each day. These include: ? Avocado. ? Banana. ? [place]a, prune, carrot, or tomato juice. ? Baked [...] fish oil, or vitamin B6. ? Take ncne-bzd-vrakvty and prescription medicines only as told by your health care provider. Theseinclude suppleme (more content not included)...[facility]04-25-2024 Hospital Discharge instructions Patient Education 06/13/2023 13:55:17 Post Op Patient Instructions - FT (Custom) (CUSTOM) 06/13/2023 11:26:22 Rvnm-Etah-nk Utereroscopy,Lithotripsy, Stone Extraction, Stent Placement (Custom) [facility] [place], [place] Dr. Viral Ramsay Post-operative Instructions for [...] other reasons. If it is to remain penitentiary, however, changes of the stent are required [...] arrange for your post-operative appointment (with XRAY) [phone] Follow Up Care 05/10/2023 13:05:16 With:Viral CLAROS Address: [address] [place] [address]- Business (1) When: Unknown Comments:As we discussed, [...] a prescription for antibiotics to your pharmacy. [facility]04-25-2024 Evaluation + Plan note Diagnostic Tests Pending * Calculi Analysis Urinary 06/13/23 Future Scheduled Tests Radiology* XR Abdomen 1 View 04/19/23 [facility]04-17-2024 Hospital Discharge instructions Patient Education 06/05/2023 08:46:07 [...] including vitamins, herbs, eye drops, creams, and ggih-tsd-ihlyknz medicines. Any problems you or family members [...] provider tells you to take them. Taking tsru-gbf-kylykav medicines, vitamins, herbs, and supplements. Tests You [...] provider. Document Revised: 01/01/2022 Document Reviewed: 10/09/2021 [employer] Patient Education 2022 [employer]. Follow Up Care 06/05/2023 08:12:19 With:SHAWN COOK, [employer], URL Address: [facility] [employer] [address] [place], [place] [id number]- When: Unknown [facility] 04-15-2024 Note [id number] NoteCardiology Clinic Note Chief Complaint: Palpitations, [...] or concerns. Velma Chand MD Interventional Cardiology [facility]04-01-2024 Hospital Discharge instructions Patient Education 05/20/2023 [...] Follow these instructions at home: Medicines Take zdor-mhg-rlohfne and prescription medicines only as told by [...] or the blood stops without treatment. Take quel-nng-ibgszmv and prescription medicines only as told by your health care provider. Drink enough fluid to keep your urine pale yellow. This information is not intended to replace advice given to you by your health care provider. Make sure you discuss any questions you have with your health care provider. Document Revised: 10/05/2020 Document Reviewed: 10/05/2020 [employer] Patient Education 2022 [employer]. 05/20/2023 14:37:25 Ureteral Stent Implantation, Care [...] Follow these instructions at home: Medicines Take acjt-mqm-mgcttzd and prescription medicines only as told by [...] actions to prevent or treat constipation: ?Take tmht-xpn-hqxktdv or prescription medicines. ?Eat foods that are [...] last for up to 1 week. Take luqm-fck-blsjilw and prescription medicines only as told by [...] provider. Document Revised: 03/12/2022 Document Reviewed: 03/12/2022 [employer] Patient Education 2022 [employer]. 05/20/2023 14:37:25 Flank Pain, Adult Flank [...] told by your health care provider. Take yvvc-jsw-ddgysbj and prescription medicines only as told by [...] provider. Document Revised: 04/17/2021 Document Reviewed: 04/17/2021 [employer] Patient Education 2022 [employer] Follow Up Care 05/20/2023 11:33:39 With:Viral CLAROS Address: [address] [id number] [facility] (1) When:05/23/2023 14:21:58 Comments:Call Dr for diagnosis based follow up. Dr. Claros's office is going to call. Call the office if they do not call you in the next couple days. Continue taking Bactrim as prescribed. Return to the emergency room if your pain gets worse, fever or any new symptoms. With:GAYE DILL Address: [address] [place], [place] [id number] Business (1) When:Within 3 Day(s) [facility]04-01-2024 Evaluation + Plan noteExtracted from: Title:ED Note [...] Appointments Appointment Date:05/30/2023 01:30:00 PM Scheduled Provider: Location:[facility] Appointment Type:Surgical PAT FT Appointment Date:06/13/2023 11:15:00 AM Scheduled Provider: Location:[facility] Appointment Type:Surgery FT Diagnostic Tests Pending * Urine Culture 05/20/23 Future Scheduled Tests Radiology* XR Abdomen 1 View 04/19/23 [facility]02-29-2024 Evaluation + Plan noteExtracted from: Title:ANES Post-operative Note - General Author: Aamir Patel Jr., DO Date:04/18/23 Plan Transfer/Discharge: Transfer/Discharge Discharge when meets criteria ( From PACU to Ambulatory Surgery Unit, and To home ). Extracted from: Title:ANES Pre-operative Note - Adult Author:Aamir Joya Jr., DO Date:04/18/23 Plan [place] [employer]esthesi[employer] (ASA) physical status classification: Class II. Anesthetic Preoperative Plan: Anesthesia General. [facility]02-29-2024 Hospital Discharge instructions Patient Education [...] Follow these instructions at home: Medicines Take deqg-bsn-mvxzuvb and prescription medicines only as told by [...] provider. Document Revised: 01/01/2022 Document Reviewed: 10/09/2021 [employer] Patient Education 2022 [employer]. Follow Up Care 03/19/2023 10:26:52 With:Viral CLAROS Address: [address] [employer] Business (1) When: Unknown Comments:Please call my [...] the fluids to keep the urine clear. [facility]01-30-2024 History of Present illness Narrative* [...] Never Past Surgical History: Procedure Laterality Date [place] TONSILLECTOMY & ADENOIDECTOMY <AGE 14 Allergies Allergen [...] nursing note reviewed. Exam conducted with a industrial electrical technician present. Vitals: Estimated body mass index [...] of: Ramy Gar DO [id number] Hospital Discharge instructions Patient Education 03/19/2023 10:15:59 [...] include: ?8 oz (237 mL) of milk, xychxzi-jszkbnzwmwio-jwomf milk, and calcium- fortifiedfruit juice. Calcium-fortified means [...] ?Spinach (cooked), rhubarb, beets, sweet potatoes, and Tongan chard. ?Peanuts. ?Potato chips, montenegrin fries, and baked potatoes with skin on. ?Nuts and nut products. ?Chocolate. If you regularly take a diuretic medicine, make sure to eat at least 1 or 2 servings of fruits or vegetables that are high in potassium each day. These include: ?Avocado. ?Banana. ?Napa, prune, carrot, or tomato juice. ?Baked potato. [...] magnesium, fish oil, or vitamin B6. Take cluw-voa-yfjnjft and prescription medicines only as told by [...] Casseroles. Pizza. Lasagna. Frozen meals. Potato chips. Peruvian fries. The items listed above may not [...] provider. Document Revised: 05/17/2022 Document Reviewed: 05/17/2022 [employer] Patient Education 2022 [employer]. Follow Up Care 01/29/2023 14:42:34 With:SHAWN COOK, Viral Catalan, URL Address: [address] [place], [place] [id number]- When: Unknown Comments:Schedule stone procedure [facility] 01-22-2024 Evaluation note* Encounter Date Diagnosis Assessment Notes Treatment Notes Treatment Clinical Notes Feb, Adult attention deficit disorder (ICD-10 - F98.8) [facility] Other 01-05-2024 Evaluation note* Encounter Date Diagnosis Assessment Notes Treatment Notes Treatment Clinical Notes Feb, Chronic GERD (ICD-10 - K21.9) [facility] Other 01-04-2024 Evaluation note* Encounter Date Diagnosis Assessment Notes Treatment Notes Treatment Clinical Notes Feb, Essential (primary) hypertension (ICD-10 - I10) [facility] Other 12-12-2023 Evaluation note* Encounter Date Diagnosis [...] in the reasonable future. Notes continued hematuria. [facility] Other 09-29-2023 Evaluation note* Encounter Date Diagnosis Assessment Notes Treatment Notes Treatment Clinical Notes Oct, Adult attention deficit disorder (ICD-10 - F98.8) [facility] Other 05-31-2023 Evaluation note* Encounter Date Diagnosis [...] we will refer her to a opthomologist [facility] Other 05-08-2023 Evaluation note* Encounter Date Diagnosis Assessment Notes Treatment Notes Treatment Clinical Notes June, Homeless family (ICD-10 - Z59.00) Note provided. States she needs this to get help with housing through [facility]. [facility] Other 12-23-2021 Evaluation note* Encounter Date Diagnosis [...] Patient care instructions given in writting by [facility] Care At Home document. [facility] Other Evaluation + Plan note Future Appointments Appointment Date:03/29/2023 10:30:00 AM Scheduled Provider: Location:[facility] Appointment Type:Surgical PAT FT Appointment Date:04/18/2023 09:30:00 AM Scheduled Provider: Location:[facility] Appointment Type:Surgery FT [facility] Evaluation + Plan note Future Appointments Appointment Date:04/18/2023 09:30:00 AM Scheduled Provider: Location:[facility] Appointment [facility] Future Appointments Appointment Date:06/13/2023 11:15:00 AM Scheduled Provider: Location:[facility] Appointment Type:Surgery FT Future Scheduled Tests Radiology* XR Abdomen 1 View 04/19/23 [facility] Future Appointments Appointment Date:06/07/2023 12:30:00 PM Scheduled Provider: Location:[facility] Appointment Type:Surgical PAT FT Appointment Date:06/13/2023 11:15:00 AM Scheduled Provider: Location:[facility] Appointment Type:Surgery FT Future Scheduled Tests Radiology* XR Abdomen 1 View 04/19/23 [facility] Evaluation + Plan note Future Appointments Appointment Date:11/25/2024 03:15:00 PM Scheduled Provider:Viral CLAROS MD Location:[facility] Appointment Type:URO Office Visit Future Scheduled Tests Radiology* XR Abdomen 1 View 04/19/23 [facility] Evaluation noteNo InformationNoF[facility] [place] [facility] Other Evaluation note* Diagnosis Well woman exam with routine gynecological exam Routine gynecological examination documented [facility]* Diagnosis Onset Date Resolution Status Essential (primary) hypertension acute Migraine acute [facility] Work Phone: Evaluation noteNo assessment information available [facility] Work Phone: evaluation note* Diagnosis Onset Date Resolution Status Bronchitis acute [facility] Work Phone: Evaluation note* Diagnosis Well woman exam with routine gynecological exam Routine gynecological examination Female infertility Female infertility of unspecified origin Amenorrhea Absence of menstruation PCOS (polycystic ovarian syndrome) Polycystic ovaries documented in this encounter [facility] general Narrative - Reported* Type Description Date Surgical History ADENOIDECTOMY Surgical History TONSILLECTOMY Hospitalization History SEE SURGICAL [facility] Other History general Narrative - Reported* Type Description Date Medical History Adult attention deficit disorder Medical History Lumbar pain Medical History Left flank discomfort Medical History Syncope and collapse Medical History Menorrhagia Medical History Kidney stone Medical History Anxiety and depression Medical History GERD (gastroesophageal reflux di sease) Surgical History ADENOIDECTOMY Surgical History TONSILLECTOMY Hospitalization History SEE SURGICAL [facility] Other Hospital course Narrative No data available for this section [facility] Hospital Discharge instructions No data available for this section [facility] No data available for this section [facility] Summary Purpose Family History No Family History Records Found Relationship Condition Age at Onset Recorded Date/T hector Not Specified Hypertension Unknown Relationship Condition Age at Onset Recorded Date/T hector mother Hypertension Unknown Advance Directives No Advanced Directives Records Found Advance Directive Response Recorded Date/ Time Advance [...] content) DATE CREATED AUTHOR 08/12/[address] [facility] DATE CREATED AUTHOR AUTHOR'S ORGANIZ ATION 05/26/2022 [facility] DATE CREATED AUTHOR AUTHOR'S ORGANIZ ATION 08/15/2023 [facility] DATE CREATED AUTHOR AUTHOR'S ORGANIZ ATION 11/22/2023 [facility] DATE CREATED AUTHOR AUTHOR'S ORGANIZ ATION 05/31/2024 [facility] DATE CREATED AUTHOR AUTHOR'S ORGANIZ ATION 08/21/2024 [facility] EPIC REASON FOR VISIT (unrecogniz ed section and content) Reason Comments Gynecologic Exam Reason Comments Gynecologic Exam Pt present today for annual visit. Infertility Pt present today to discuss infertility issue. Patient states she has not had a period since May 2024 and has taken tests and all come back negative. Patient Care team informatio n (unrecognized section and content) Fmd Teacher Relationship Specialty Start Date End Date Gaye Dill MD [address] [place] [id number] PCP - General Family Medicine 07/19/22 Team [...] 2023 Charlene Nair Attending Provider Active Start: [facility] 2023 Team Status: Inactive Member Role Status [...] March 06, 2024 End: March 06, 2024 Fmd Teacher Relationship Specialty Start Date End Date Gaye Dill MD PCP - General Family [facility] 07/19/22 Fmd Teacher Relationship Specialty Start Date End Date Gaye Dill MD [address] [place] [id number] PCP - General Family [facility] 07/19/22 Fmd Teacher Relationship Specialty Start Date End Date Gaye Dill MD [address] [place] [address] PCP - General Family Medicine 07/19/22 Goals [...] BE BASED ON THE PRIMARY CLINICAL RECORDS. [employer] provides no warranty or guarantee of the accuracy or completeness of information in this document.
== END 2024-08-27 20:02 | disposition home or self-care (01) ==
PROVIDERS: PCP Family Medicine; Visit Provider Obstetrics & Gynecology
DX: E28.2 Polycystic ovarian syndrome (principal)
CPT/HCPCS: 76830; 76856

== ENCOUNTER 2024-09-08 12:05 | Outpatient (OUT) | payer OTHER, SELFPAY ==
[2024-09-08 12:21] LABS: Hematocrit 42.8 % (36.0-48.0); Hemoglobin 14.8 g/dL (12.0-16.0); Immature Granulocytes Abs Auto 0.04 10^3/uL (0.00-0.03); Immature Granulocytes Pct Auto 0.5 % (0.0-0.5); Lymphocytes Absolute Auto 2.4 10^3/uL (1.2-3.8); Mean Corpuscular HGB Conc 34.6 g/dL (29.9-35.2); Mean Corpuscular Hemoglobin 30.6 pg (26.7-34.0); Mean Corpuscular Volume 88.6 fL (81.0-99.0); Platelet Count 205 10^3/uL (150-450); Red Blood Count 4.83 10^6/uL (4.20-5.40); White Blood Count 8.7 10^3/uL (4.0-11.0)
[2024-09-08 12:59] LABS: Thyroid Stimulating Hormone 2.638 uIU/mL (0.358-3.740)
[2024-09-09 04:07] LABS: FSH 6.9 mIU/mL (.)
== END 2024-09-08 12:06 | disposition home or self-care (01) ==
LOC: LAB 12:05
PROVIDERS: PCP Family Medicine; Visit Provider Obstetrics & Gynecology
DX: E28.2 Polycystic ovarian syndrome (principal)
CPT/HCPCS: 36415; 82627; 83001; 83002; 83036; 84439; 84443; 84702; 85025

== ENCOUNTER 2024-12-11 20:30 | Emergency (ER) | payer OTHER, SELFPAY ==
--- OUTSIDE RECORDS SUMMARY | 2023-06-18 06:00 | XMS_ITS ---
Author Organization The [facility] in [place] Address [address] [place] [address] Care Team Providers Care Palaeontologist Name Role Phone Leticia Young Primary Care Provider Osman Gordon [facility] [phone] REASON FOR VISIT ingrown toenail Encounters Encounter Location Date Provider Diagnosis [facility] (PODIATRY) [address] [place] [address] [place] [address] 06/18/2023 Osman Hurley Plan Of Treatment No Information Progress Notes * Sunshine RYDERDOB:2000 (24 yo F)Acc No.[id number]:06/18/2023 UNLOCKED PROGRESS NOTE New Patient Patient: Sunshine ALVAREZ :?Osman Hurley DPM, MSDOB:2000???Age: 23 Y???Sex:FemaleDate:06/18/2023hone:[phone]:[address] [facility] INSTITUTECarlitosCANTON, OHCN-[id number]:Leticia Young Subjective: * Chief Complaints: * 1 . Ingrown toenail. * Medical History: Objective: * Vitals: Assessment: Plan: * Treatment: * * Electronic signature of Osman Hurley DPM on 12/11/2024 at 08:37 PM EDTSign off status: PendingVisit Status:?N/S N/C (No Show/No Charge) * Provider: Alayna Hurley DPM, MS Date: 0 06/18/2023 Generated for Printing/Faxing/eTransmitting on:?12/11/2024 08:37 PM EDT
--- OUTSIDE RECORDS SUMMARY | 2024-12-06 19:39 | XMS_ITS | Encounter Summary ---
Author Organization [facility] Collections [employer] [facility] tem Address [facility] [id number] [address] [place] [address] Care Team Providers Care Manager Athletics Name Role Phone Leticia Young MD Primary Care Provider [phone] Reason for Visit * ReasonCommentsVomiting Encounter Details DateTypeDepartmentCare Team (Latest Contact Info)Wpgelnooxun36/19/2025 7:39 PM EDT - 12/06/2024 9:13 PM EDTEmergency [facility] [address] [place] [id number] Robert Cavazos MD [address], [place] [id number] Gastroenteritis (Primary Dx) Discharge Disposition: Home Social History Tobacco UseTypesPacks/DayYears UsedDateSmoking Tobacco: FormerCigarettes Smokeless Tobacco: NeverAlcohol UseStandard Drinks/WeekCommentsYes0 (1 standard drink = 0.6 oz pure alcohol)rarelyChildcareAnswerDate RecordedChildcareUnknown 07/30/2018EmploymentAnswerDate BldzrxeiWqfwsqbsuvPenygky11/12/2019Hunger ScreeningAnswerDate RecordedWithin the past 12 months we worried whether our food would run out before we got money to buy more.Never True12/06/2024Within the past 12 months the food we bought just didn't last and we didn't have money to get more.Never True12/06/2024CommentsNoSex and Gender Information ValueDate RecordedSex Assigned at BirthNot on fileLegal NrpVuxhbb92/06/2015 12:04 PM EDTGender IdentityNot on fileSexual OrientationNot on filedocumented as of this encounter Last Filed Vital Signs Vital SignReadingTime TakenCommentsBlood Xkffpulx679/9512/06/2024 9:00 PM EDT Qrsdx135512/06/2024 9:00 PM KEHRpnawohwuan25.8 ??C (98.2 ??F)12/06/2024 7:46 PM EDTRespiratory Conl1079 7:46 PM EDTOxygen Lzisusuwjx79%12/06/2024 9:00 PM EDTInhaled Oxygen Concentration--Qnleqz037 kg (227 lb)12/06/2024 7:46 PM EDT Nlagpo540 cm (5' 3 )12/06/2024 7:46 PM EDTBody Mass Index40. 7:46 PM EDTdocumented in this encounter Discharge Instructions * Attachments The following attachments cannot be sent through Care Everywhere. * Viral gastroenteritis in adults (Belarusian) documented in this encounter Medications at Time of Discharge MedicationSigDispense QuantityRefillsLast FilledStart DateEnd Date famotidine (PEPCID) 20 mg tablet Take 1 tablet (20 mg total) by mouth in the morning and 1 tablet (20 mg total) before bedtime. 20 tablet 12/06/2024 ondansetron ODT (ZOFRAN ODT) 4 mg disintegrating tablet Dissolve 1 tablet (4 mg total) on tongue 3 (three) times a day as needed for nausea for up to 3 doses. 3 tablet 12/06/2024documented as of this encounter ED Notes * Merary Devine RN - 12/06/2024 7:47 PM EDT PT STATES ONE EPISODE OF BLOODY EMESIS * Robert Cavazos MD - 12/06/2024 7:40 PM EDT Images from the original note were not included. [facility] - EMERGENCY Pt Name: Sunshine Lin Birthdate: 2000 Chief Complaint: Chief Complaint Patient presents with Vomiting History of Present Illness: Initial evaluation performed at 7:[address] Cavazos. Patient is a 24 y.o. female who presents to the ED for evaluation of vomiting. Pt states an hour ago she vomited for the first time today and there was some blood in the vomit. Pt states she has had a headache and diarrhea today. Pt states she started taking new medication to restart her menstrual period 5 days ago and does not recall the name of the medication. Pt states she had a heart murmur as a child and currently has hypertension. She denies any other cardiac problems. Pt denies fever, urinary changes, and taking blood thinners. 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 No pertinent family history. Social History: Social History Socioeconomic History Marital status: Single Tobacco Use Smoking status: Former Types: Cigarettes Smokeless tobacco: Never Vaping Use Vaping status: Every Day Substances: Nicotine, THC Substance and Sexual Activity Alcohol use: Yes Comment: rarely Drug use: Yes Frequency: 7.0 times per week Types: Marijuana Sexual activity: Defer Social Drivers of Health Food Insecurity: No Food Insecurity (12/06/2024) Hunger Screening Food Insecurity - Worry: Never True Food Insecurity - Inability: Never True Interpersonal Safety: Unknown (04/11/2023) Received from [facility] Safety & Environment Fear of Current or Ex-Partner: Not on file Emotionally Abused: Not on file Physically Abused: Not on file Sexually Abused: Not on file Physically or Sexually Abused: Not on file Review of Systems: Review of Systems Physical Exam: ED Triage Vitals Temp Pulse Resp BP SpO2 -- -- -- -- -- Temp src Heart Rate Source Patient Position BP Location FiO2 (%) -- -- -- -- -- Vitals: 12/06/24194412/06/241945 BP: (!) 167/94 Temp: 36.8 ??C (98.2 ??F) TempSrc: Oral Pulse: 72 Resp: 18 SpO2: 98% Height: 160 cm (5' 3 ) Weight: 103 kg (227 lb) Physical Exam Vitals reviewed. HENT: Head: Normocephalic and atraumatic. Eyes: Conjunctiva/sclera: Conjunctivae normal. Cardiovascular: Rate and Rhythm: Normal rate. Pulmonary: Effort: Pulmonary effort is normal. Breath sounds: Normal breath sounds. Abdominal: General: There is no distension. Palpations: Abdomen is soft. Musculoskeletal: General: Normal range of motion. Cervical back: Normal range of motion and neck supple. Skin: General: Skin is warm and dry. Neurological: General: No focal deficit present. Mental Status: She is alert and oriented to person, place, and time. GCS: GCS eye subscore is 4. GCS verbal subscore is 5. GCS motor subscore is 6. Procedure: Procedures Re-evaluation: Pb Edwards (scribe), documented on behalf and in the presence of Dr. Cavazos. Medical Decision Making Amount and/or Complexity of Data Reviewed Labs: ordered. Details: Labs notable for: 3.3 potassium, 21 carbon dioxide, 11.7 white blood cell count, >=1.030 specific gravity, 100mg/dL protein minh, 40 mg/dL ketones minh, small bilirubin minh, trace blood in urine Risk Prescription drug management. ED Course: Clinical Impressions as of 12/06/242042 Gastroenteritis . ED Disposition ED Disposition Discharge Date/Time Sun Dec 06, 2024 8:41 PM Comment At the time of discharge, the plan has been discussed with the patient regarding the diagnosis and prognosis. All questions have been answered. Verbal discharge instructions were discussed with the patient. The patient has been advised to follow up w ith their Primary Care Provider within 1 week. The patient was also instructed to return to the ED if their symptoms change, worsen, new symptoms arise or if they have any additional concerns. Medications Prescribed this Visit Sig ondansetron ODT (ZOFRAN ODT) 4 mg disintegrating tablet Dissolve 1 tablet (4 mg total) on tongue 3 (three) times a day as needed for nausea for up to 3 doses. famotidine (PEPCID) 20 mg tablet Take 1 tablet (20 mg total) by mouth in the morning and 1 tablet (20 mg total) before bedtime. . Please note that portions of this note were completed with a voice recognition program. Efforts were made to edit the dictations but occasionally words are mis-transcribed. Pb Arzola 12/06/241951 Pb [facility] 12/06/242042 Robert Cavazos MD 12/08/24 1009 documented in this encounter Plan of Treatment Not on file documented as of this encounter Procedures Procedure NamePriorityDate/TimeAssociated DiagnosisCommentsPOCT , URINE (NUCG)Yhufyar3712/06/2024 8:21 PM EDT POCT NURSING URINE MACROSCOPIC GLDrrdnol08/19/2025 8:19 PM EDT ER EXTRA URINE OKEVVQYLOV03/19/2025 8:06 PM EDT ER EXTRA URINE RTIKWGEIBMQ64/19/2025 8:06 PM EDT ER EXTRA KZTYSHMDX48/19/2025 8:06 PM EDT CBC WITH AUTO ISVDNLYDSUWOQMWX80/19/2025 8:06 PM EDT OIFLANWZ85/19/2025 8:06 PM EDT PROTIME & BEVUCMF8912/06/2024 8:06 PM EDT QXHQCUJNIV54/19/2025 8:06 PM EDT COMPREHENSIVE METABOLIC MPSVWACRA95/19/2025 8:06 PM EDT documented in this encounter Results * POCT , urine (12/06/2024 8:21 PM EDT)ComponentValueRef RangeTest MethodAnalysis TimePerformed AtPathologist SignaturePOC Urine NegativeNegative, Yvnoycubfnnlq54/19/2025 8:26 PM EDTPROMEDICA SAN CLEMENTE HOSPITAL AND MEDICAL CENTERpecimen (Source)Anatomical Location / LateralityCollection Method / VolumeCollection TimeReceived VdpoSjpet09/19/2025 8:21 PM EDT 12/06/2024 8:26 PM EDT Narrative Authorizing ProviderResult TypeResult StatusRobert Cavazos MDPOINT OF CARE TEST ORDERABLESFinal ResultPerforming OrganizationAddressCity/State/ZIP CodePhone Number [facility] [address] [place] [address], [place] * (ABNORMAL) POCT Nursing Urine Macroscopic UA (12/06/2024 8:19 PM EDT)Component ValueRef RangeTest MethodAnalysis TimePerformed AtPathologist [facility] Urine Specific [place]>=1.030(A)1.010, 1.015, 1.020, 1.7663312/06/2024 8:20 PM [facility] Urine Leukocyte EsteraseNegative Irdlkiqb44/19/2025 8:20 PM [facility] Urine DwuhbtvNmsmgigxTgrqhplv97/19/2025 8:20 PM [facility] Urine pH6.05.0, 6.0, 6.5, 7.0, 7.5, 8.0, 8.5, 5. 8:20 PM [facility]MET[facility] Urine Jlqadft467 mg/dL(A)Negative 12/06/2024 8:20 PM [facility] Urine Glucose ZtqyazsdSraeatwx87/19/2025 8:20 PM [facility] Urine Eljycke81 mg/dL(A)Ouddlfhv54/19/2025 8:20 PM [facility] Urine Urobilinogen0.2 E.U./dL12/06/2024 8:20 PM EDT [facility] Urine BilirubinSmall(A)Negative 12/06/2024 8:20 PM [facility] Urine Blood/HGB Trace(A)Umcfrfua76/19/2025 8:20 PM [facility] Specimen (Source)Anatomical Location / LateralityCollection Method / Volume Collection TimeReceived NnlyYgiju26/19/2025 8:19 PM EDT1 8:20 PM EDT Narrative Authorizing ProviderResult TypeResult Morena Cavazos MDPOINT OF CARE TEST ORDERABLESFinal ResultPerforming OrganizationAddressty/State/ZIP CodePhone Number [address] [place] [address], [place] * APTT (12/06/2024 8:06 PM EDT)ComponentValueRef RangeTest MethodAnalysis Time Performed AtPathologist EjfxwrgpqZZJE4510 - 37 sec12/06/2024 8:33 PM EDT [facility] (Source)Anatomical Location / LateralityCollection Method / VolumeCollection TimeReceived TimeBloodVenous blood / Naxaizd8812/06/2024 8:06 PM EDT1 8:18 PM EDT Narrative Authorizing ProviderResult TypeResult StatusRobert Cavazos MDLAB BLOOD ORDERABLES Final ResultPerforming OrganizationAddressty/State/ZIP CodePhone Number [address] [place] [address], [place] * Protime & INR (12/06/2024 8:06 PM EDT)ComponentValueRef RangeTest Method Analysis TimePerformed AtPathologist QjvruhcvfIFLUJKX36.09.8 - 13.2 sec 12/06/2024 8:33 PM EDTPKETTERING HEALTH WASHINGTON TOWNSHIPINR1.10.9 - 1.2 12/06/2024 8:33 PM [facility] (Source) Anatomical Location / LateralityCollection Method / VolumeCollection Time Received TimeBloodVenous blood / Rktigla7112/06/2024 8:06 PM EDT1 8:18 PM EDT Narrative Authorizing ProviderResult TypeResult StatusRobert Cavazos MDLAB BLOOD ORDERABLES Final ResultPerforming OrganizationAddressty/State/ZIP CodePhone Number [address] [address], [place] * Lipase (12/06/2024 8:06 PM EDT)ComponentValueRef RangeTest MethodAnalysis Time Performed AtPathologist TvazepmvaJLHGPE8288 - 40 U/L1 8:38 PM EDT [facility] (Source)Anatomical Location / LateralityCollection Method / VolumeCollection TimeReceived TimeBloodVenous blood / Rpdivhq3012/06/2024 8:06 PM EDT1 8:17 PM EDT Narrative Authorizing ProviderResult TypeResult StatusRobert LEE BLOOD ORDERABLES Final ResultPerforming OrganizationAddressCity/State/ZIP CodePhone Number [facility] [address] [place] [address], * (ABNORMAL) Comprehensive metabolic panel (12/06/2024 8:06 PM EDT)Component ValueRef RangeTest MethodAnalysis TimePerformed AtPathologist SignatureSODIUM 607255 - 146 mmol/L1 8:40 PM [facility] POTASSIUM3.3(L)3.5 - 5.0 mmol/L1 8:40 PM [facility]ITALCHLORIDE10498 - 109 mmol/L1 8:40 PM [facility]ITALCARBON GWMBUCF96(L)22 - 32 mmol/L1 8:40 PM [facility]ITALANION GYZ525 - 15 mmol/L1 8:40 PM [facility]OS[facility]ITALBLOOD UREA QBBRMKCX126 - 23 mg/dL 12/06/2024 8:40 PM [facility]ITALCREATININE0.840.40 - 1.00 mg/dL12/06/2024 8:40 PM [facility]ITALComment: METHOD TRACEABLE TO IDMS BZJGEBXNICPCSPB325(H)65 - 99 mg/dL12/06/2024 8:40 PM [facility]ITALCALCIUM9.08.5 - 10.5 mg/dL12/06/2024 8:40 PM [facility]OS[facility]ITALTOTAL PROTEIN7.86.0 - 8.0 g/dL 12/06/2024 8:40 PM [facility]ITALALBUMIN4.63.2 - 5.3 g/dL12/06/2024 8:40 PM [facility]PITALALKALINE EUFKBAYVUJS5829 - 130 U/L1 8:40 PM [facility]ITALAST33<=41 U/L1 8:40 PM [facility] ALT62(H)<=31 U/L1 8:40 PM [facility] BILIRUBIN,TOTAL1.10.3 - 1.2 mg/dL12/06/2024 8:40 PM [facility] HOSPITALEGFR Non-Race Dependent>90>=60 ml/min/1.73sq.m1 8:40 PM [facility]ITALComment: eGFR not reported due to non-numeric value for Creatinine. Reported eGFR is based on the CKD-EPI 2020 equation that does not use a race coefficient. Specimen (Source)Anatomical Location / LateralityCollection Method / Volume Collection TimeReceived TimeBloodVenous blood / Xgwaiku2712/06/2024 8:06 PM EDT 12/06/2024 8:17 PM EDT Narrative Authorizing ProviderResult TypeResult StatusPajonas Cavazos MDLAB BLOOD ORDERABLES Final ResultPerforming OrganizationAddressCity/State/ZIP CodePhone Number [facility] [address] [facility] [place] [address], * (ABNORMAL) CBC auto differential (12/06/2024 8:06 PM EDT)ComponentValueRef RangeTest MethodAnalysis TimePerformed AtPathologist GreoucgfyGNN19.7(H)4 - 11 x10E9/L1 8:26 PM [facility]OSPITALRBC Count4.93 3.8 - 5.2 X10E12/L1 8:26 PM [facility] Jlqeffylju30.911.7 - 15.5 g/dL12/06/2024 8:26 PM [facility]ITALHematocrit43.735 - 47 %12/06/2024 8:26 PM [facility]ITALMCV8980 - 100 fL12/06/2024 8:26 PM EDTPKETTERING HEALTH WASHINGTON TOWNSHIPMCH30.327 - 34 pg12/06/2024 8:26 PM EDTPKETTERING HEALTH WASHINGTON TOWNSHIPMCHC34.232 - 36 g/dL12/06/2024 8:26 PM EDTPKETTERING HEALTH WASHINGTON TOWNSHIPRDW13.611.5 - 15 %12/06/2024 8:26 PM EDTPKETTERING HEALTH WASHINGTON TOWNSHIPPlatelet Dzcxc923828 - 450 X10E9/L1 8:26 PM EDT [facility]ITALMPV9.47 - 12 fL12/06/2024 8:26 PM EDT [facility]ITALNeutrophils %70.9%12/06/2024 8:26 PM EDT [facility]OS[facility]ITALLymphocytes %21.0%12/06/2024 8:26 PM EDT PROMKERN VALLEYMonocytes %6.3%12/06/2024 8:26 PM EDT [facility]ITALEosinophils %0.9%12/06/2024 8:26 PM EDT [facility]ITALBasophils %0.9%12/06/2024 8:26 PM EDT [facility]OS[facility]ITALNeutrophils Absolute (A)8.3(H)1.5 - 6.6 10*3/uL12/06/2024 8:26 PM EDTPKETTERING HEALTH WASHINGTON TOWNSHIPLymphocytes Absolute2.51.0 - 3.5 10*3/uL12/06/2024 8:26 PM EDTPKETTERING HEALTH WASHINGTON TOWNSHIPMonocytes Absolute0.70.0 - 0.9 10*3/uL12/06/2024 8:26 PM EDTPKETTERING HEALTH WASHINGTON TOWNSHIPEosinophils Absolute0.10.0 - 0.4 10*3/uL12/06/2024 8:26 PM EDTPKETTERING HEALTH WASHINGTON TOWNSHIPBasophils Absolute0.10.0 - 0.2 10*3/uL12/06/2024 8:26 PM EDTPKETTERING HEALTH WASHINGTON TOWNSHIPDifferential TypeAUTOMATED HGEKZTQUVQGZ73/19/2025 8:26 PM EDLakeHealth [facility] (Source)Anatomical Location / LateralityCollection Method / VolumeCollection TimeReceived TimeBloodVenous blood / Xuvppwm7412/06/2024 8:06 PM EDT1 8:18 PM EDT Narrative Authorizing ProviderResult TypeResult StatusRobert LEE BLOOD ORDERABLES Final ResultPerforming OrganizationAddressty/State/ZIP CodePhone Number [address] [place] [address], [place] * Extra Urine Coral (12/06/2024 8:06 PM EDT)ComponentValueRef RangeTest Method Analysis TimePerformed AtPathologist SignatureExtra TubeAuto Resulted 12/06/2024 10:01 PM [facility] (Source) Anatomical Location / LateralityCollection Method / VolumeCollection Time Received TimeUrineUrine specimen collection, clean catch / Jkhnfww3412/06/2024 8:06 PM EDT1 9:34 PM EDT Narrative Authorizing ProviderResult TypeResult StatusRobert Cavazos MDURINE ORDERABLES Final ResultPerforming OrganizationAddWellSpan Waynesboro Hospitalty/State/ZIP CodePhone Number [address] [place] [address], [place] * Extra Urine Culture (12/06/2024 8:06 PM EDT)ComponentValueRef RangeTest Method Analysis TimePerformed AtPathologist SignatureExtra TubeAuto Resulted 12/06/2024 10:01 PM EDTPK[facility] (Source) Anatomical Location / LateralityCollection Method / VolumeCollection Time Received TimeUrineUrine specimen collection, clean catch / Hcmvntw8712/06/2024 8:06 PM EDT1 9:34 PM EDT Narrative Authorizing ProviderResult TypeResult StatusRobert Cavazos MDURINE ORDERABLES Final ResultPerforming OrganizationAddressty/State/ZIP CodePhone Number [address] [place] [address], [place] * Extra Urine (12/06/2024 8:06 PM EDT)ComponentValueRef RangeTest MethodAnalysis TimePerformed AtPathologist SignatureExtra TubeAuto Lczeksgl87/19/2025 10:01 PM EDTPROMEDICA SAN CLEMENTE HOSPITAL AND MEDICAL CENTERpecimen (Source)Anatomical Location / LateralityCollection Method / VolumeCollection TimeReceived TimeUrineUrine specimen collection, clean catch / Csuzrcj7212/06/2024 8:06 PM EDT1 9:34 PM EDT Narrative Authorizing ProviderResult TypeResult StatusRobert Cavazos MDURINE ORDERABLES Final ResultPerforming OrganizationAddressCity/State/ZIP CodePhone Number [facility] [address] [place] [address], documented in this encounter Visit Diagnoses Diagnosis Gastroenteritis- Primary Other and unspecified noninfectious gastroenteritis and colitis documented in this encounter Administered Medications Medication OrderMAR ActionAction DateDoseRateSite famotidine (PF) (PEPCID) injection 20 mg 20 mg, intravenous, Once, On 12/06/24 at 1951, For 1 dose, Dilute to total volume of 5 mL with 0.9% sod chl and administer IVP over 2 minutes. Given12/06/2024 8:11 PM EDT20 mg ketorolac (TORADOL) injection 30 mg 30 mg, intravenous, Once, On 12/06/24 at 2028, For 1 dose, Look-alike/sound-alike medication - verify indication for use. Duration of therapy is not to exceed 5 days. Maximum recommended dose + 120mg/24 hours. Given12/06/2024 8:39 PM EDT30 mg ondansetron (PF) (ZOFRAN) injection 4 mg 4 mg, intravenous, Once, On 12/06/24 at 1951, For 1 dose, Intravenous administration preferred to be given over 2-5 minutes. Given12/06/2024 8:09 PM EDT4 mg sodium chloride 0.9 % bolus 500 mL, intravenous, at 968 mL/hr, Administer over 31 Minutes, Once, On 12/06/24 at 1951, For 1dose New Bag12/06/2024 8:08 PM IEU513 mL968 mL/hr sodium chloride 0.9 % flush 3 mL 3 mL, intravenous, As needed, line care, before and after each intermittent use, Starting on Sat12/06/24 at 1950 documented in this encounter Active and Recently Administered Medications Times are shown in EDT.Medication Order/ famotidine (PF) (PEPCID) injection 20 mg (COMPLETED) 20 mg, intravenous, Once, On 12/06/24 at 1951, For 1 dose, Dilute to total volume of 5 mL with 0.9% sod chl and administer IVP over 2 minutes. * 2010 (Given - Provider: Karina Marcum, MISAEL) ketorolac (TORADOL) injection 30 mg (COMPLETED) 30 mg, intravenous, Once, On 12/06/24 at 2028, For 1 dose, Look-alike/sound-alike medication - verify indication for use. Duration of therapy is not to exceed 5 days. Maximum recommended dose + 120mg/24 hours. * 2038 (Given - Provider: Karina Marcum, MISAEL) ondansetron (PF) (ZOFRAN) injection 4 mg (COMPLETED) 4 mg, intravenous, Once, On 12/06/24 at 2, For 1 dose, Intravenous administration preferred to be given over 2-5 minutes. * 2008 (Given - Provider: Karina Marcum, MISAEL) sodium chloride 0.9 % bolus (COMPLETED) 500 mL, intravenous, at 968 mL/hr, Administer over 31 Minutes, Once, On 12/06/24 at 1952, For 1dose * 2007 (New Bag - Provider: Karina Marcum RN) * 2038 (Stop Bag - Provider: Karina Marcum RN) Medication Order/ sodium chloride 0.9 % flush 3 mL 3 mL, intravenous, As needed, line care, before and after each intermittent use, Starting on Sat12/06/24 at 1950 documented in this encounter Care Teams Team MemberRelationshipSpecialtyStart DateEnd Date Leticia Young MD [address] [place] [address] PCP - GeneralFamily Medicine05/30/24documented as of this encounter
--- OUTSIDE RECORDS SUMMARY | 2024-12-07 14:20 | XMS_ITS | Encounter Summary ---
Author Organization [facility] Address [address] [place] [address] Care Team Providers Care Easement Man Name Role Phone Leticia Young MD Primary Care Provider [phone] Reason for Visit * ReasonCommentsPainful [place] Encounter Details DateTypeDepartmentCare Team (Latest Contact Info)Oyiaowkhhjq74/20/2025 2:20 PM EDTOffice Visit [facility] [address] [address] Ramy Gar DO [address] [place], [place] [id number] Pain in female genitalia on intercourse; Pelvic pain in female; Anxiety, generalized Social History Tobacco UseTypesPacks/DayYears UsedDateSmoking Tobacco: NeverSmokeless Tobacco: NeverAlcohol UseStandard Drinks/WeekCommentsNever0 (1 standard drink = 0.6 oz pure alcohol)CommentsNoSex and Gender InformationValueDate RecordedSex Assigned at BirthNot on fileLegal WtmZcabka09/15/2023 6:52 PM EDTGender Identity Not on fileSexual OrientationNot on filedocumented as of this encounter Last Filed Vital Signs Vital SignReadingTime TakenCommentsBlood Asyevhik247/7610 2:34 PM EDT Pulse--Temperature--Respiratory Rate--Oxygen Saturation--Inhaled Oxygen Concentration--Bkokyq684 kg (225 lb)12/07/2024 2:34 PM FFDDumrlt372 cm (5' 3 ) 12/07/2024 2:34 PM EDTBody Mass Index39.8612/07/2024 2:34 PM EDTdocumented in this encounter Progress Notes * Katlyn Ebenezer, CAROLYN - 12/07/2024 2:20 PM EDT Reason for Appointment: Patient ID: Sunshine Lin is a 24 y.o. female who presents for Painful [place] Patient presents today for Painful intercourse. MEDICATIONS Current Outpatient Medications Medication Instructions labetalol (NORMODYNE) 100 mg, Oral, 2 times daily medroxyPROGESTERone (PROVERA) 10 mg, Oral, Daily, Take 1 tablet by mouth daily metFORMIN (GLUCOPHAGE) 500 mg, Oral, Daily with breakfast NIFEdipine XL (PROCARDIA XL) 30 mg, Oral, Daily, Do not crush, chew, or split. ALLERGIES Allergies Allergen Reactions Codeine Hives, Other and Rash Other Reaction(s): Hyperactivity Other Reaction(s): Unknown Other Reaction(s): puffy et itchy PROBLEMS Active Ambulatory Problems Diagnosis Date Noted Adult attention deficit disorder 07/27/2022 Atypical chest pain 02/01/2022 Dizziness 02/01/2022 CELAYA (dyspnea on exertion) 02/01/2022 Abdominal pain 07/27/2022 Gastroesophageal reflux disease 07/27/2022 Impacted cerumen 07/27/2022 Menorrhagia 07/27/2022 Kidney stone 07/27/2022 Mixed anxiety and depressive disorder 07/27/2022 Other specified related conditions, unspecified trimester ([facility]) 07/27/2022 Palpitations 02/01/2022 Pelvic and perineal pain [...] cramping Rh negative state in antepartum period ([facility]) Surveillance for control, intrauterine device HISTORY PAST [...] cramping Rh negative state in antepartum period ([facility]) Surveillance for control, intrauterine device Syncope and collapse Vaginal discharge Social History Tobacco Use Smoking status: Never Smokeless tobacco: Never Substance Use Topics Alcohol use: Never Drug use: Never FAMILY HISTORY Family History Problem Relation Name Age of Onset Hypertension Mother Depression Mother Migraines Mother Hypertension Maternal Grandmother Diabetes Maternal Grandmother Diabetes Paternal Grandmother SURGICAL HISTORY Past Surgical History: Procedure Laterality Date LITHOTRIPSY NV TONSILLECTOMY & ADENOIDECTOMY <AGE 14 WISDOM TOOTH EXTRACTION REVIEW OF SYSTEMS Review of Systems: Review of Systems All other systems reviewed and are negative. OBJECTIVE Objective: Physical Exam Constitutional: Appearance: Normal appearance. She is well-developed. Cardiovascular: Rate and Rhythm: Normal rate and [...] nursing note reviewed. Exam conducted with a cell repairer present. Vitals: Estimated body mass index is 39.86 kg/m?? as calculated from the following: Height as of this encounter: 5' 3 . Weight as of this encounter: 225 lb. BP: 126/76 No LMP recorded. (Menstrual status: No Periods). Assessment/Plan ICD-10-CM 1. Pain in female genitalia on intercourse N94.10 2. Pelvic pain in female R10.20 POCT urinalysis dipstick manually resulted POCT , urine manually resulted SURESWAB(R) ADVANCED VAGINITIS PLUS, TMA Neisseria gonorrhea DNA probe, direct CHLAMYDIA TRACHOMATIS (GENITO/STI) US Pelvis w/ TV SURESWAB(R) ADVANCED VAGINITIS PLUS, TMA 3. Anxiety, generalized F41.1 Patient is here for Pelvic pain with intercourse. Patient states that she did have this one time. Patient to continue on the Provera and she will call when she does start her cycle. Patient will haveEffexor sent in for Anxiety. Cultures obtained without difficulty. Documented by Katlyn Sol LPN on behalf of: Ramy Gar DO documented in this encounter Plan of Treatment DateTypeDepartmentCare Team (Latest Contact Info)Qyienxhipup41/19/2025 2:20 PM ESTOffice Visit [facility] [address] [place] [phone] Ramy Gar DO [address] [place] [address] NameTypePriorityAssociated DiagnosesOrder ScheduleSURESWAB(R) ADVANCED VAGINITIS PLUS, TMAPathology and CytologyRoutine Pelvic pain in female Expected: 12/07/2024 (Approximate), Expires: 12/07/2025Neisseria gonorrhea DNA probe, directLabRoutine Pelvic pain in female Ordered: 12/07/2024HLAMYDIA TRACHOMATIS (GENITO/STI)LabRoutine Pelvic pain in female Ordered: 12/07/2024documented as of this encounter Procedures Procedure NamePriorityDate/TimeAssociated DiagnosisCommentsPOCT , URINE Xnirnwt2912/07/2024 2:47 PM EDT Pelvic pain in female POCT URINALYSIS ICXECSIJGgkahdl11/20/2025 2:44 PM EDT Pelvic pain in female documented in this encounter Results * POCT , urine manually resulted (12/07/2024 2:47 PM EDT)ComponentValue Ref RangeTest MethodAnalysis TimePerformed AtPathologist SignaturePreg Test, UrNegativeNegativeSpecimen (Source)Anatomical Location / LateralityCollection Method / VolumeCollection TimeReceived NzkaMiltc46/20/2025 2:47 PM EDT Narrative Authorizing ProviderResult TypeResult StatusCorey Cong DOPOINT OF CARE TEST ENTER/EDIT ORDERABLESFinal Result * (ABNORMAL) POCT urinalysis dipstick manually resulted (12/07/2024 2:44 PM EDT) ComponentValueRef RangeTest MethodAnalysis TimePerformed AtPathologist SignatureColor, UAYellowClarity, UAClearGlucose, UANegativeNegative - 2000(110) ++++ mg/dLBilirubin, UANegativeNegative - 4(70) +++ mg/dLKetones, UA NegativeNegative - 160(16) ++++ mg/dLSpec Grav, UA1.0301 - 1.03Blood, UA PositiveNegative - 50 Mo/mcLpH, UA5.55 - 9Protein, UANegativeNegative - 2000(20) ++++ mg/dLUrobilinogen, UA1.00.2 - 12 mg/dLLeukocytes, UANegative Negative - 500+++ Mitchell/mcLNitrite, UANegativeNegative - PositiveSpecimen (Source)Anatomical Location / LateralityCollection Method / VolumeCollection TimeReceived NsygNvrgr46/20/2025 2:44 PM EDT Narrative Authorizing ProviderResult TypeResult StatusCorey Cong DOPOINT OF CARE TEST ENTER/EDIT ORDERABLESFinal Result documented in this encounter Visit Diagnoses Diagnosis Pain in female genitalia on intercourse Dyspareunia Pelvic pain in female Unspecified symptom associated with female genital organs Anxiety, generalized documented in this encounter Care Teams Team MemberRelationshipSpecialtyStart DateEnd Date Leticia Young MD [address] [place] [id number] PCP - GeneralFamily Medicine07/19/22documented as of this encounter
[2024-12-11 20:34] VITALS: BP 164/102; PULSE 59; TEMP 36.8; O2SAT 98; BMI 39.9
--- OUTSIDE RECORDS SUMMARY | 2024-12-11 20:36 | XMS_ITS | CCD ---
Author Organization [facility] Care Team Providers Care Landscape Management Technician Name Role Phone Columba Fernandes Unavailable Gaye Dill Unavailable GAYE DILL Primary Care Unavailable PREET, DR SIMRAN Alexander Consulting Unavailabl e PREET, DR SIMRAN Alexander Attending Unavailabl e PREET, DR SIMRAN Alexander Admitting Unavailnicole e GAYE DILL Primary Care Unavailable JOSE ., DR GAIL Mcwilliams Attending Unavailable JOSE ., DR GAIL Mcwilliams Admitting Unavailable RL RAMIREZ Consulting Unavailable GAYE DILL Admitting Unavailable GAYE DILL Primary Care Unavailable GAYE DILL Consulting Unavailable GAYE DILL Attending Unavailable GAYE DILL Primary Care Physician Lexis Moura Unavailable Unavailable Fuentes COOK, Gaye Primary Care Provider VELMA SHAFFER Attending Unavailable Gaye Dill MD Primary Care Provider Gaye Dill MD Primary Care Provider Perry ESCOBAR Attending Unavailable GAYE DILL Primary Care Unavailable LUCA SERNA Attending Unavailable GAYE DILL Primary Care Unavailable TOMASZ HARRISON Attending Unavailable GAYE DILL Primary Care Unavailable PRMEA BURGESS Attending Unavailable Gaye Dill MD Primary Care Provider RAMY GAR Attending Unavailable RAMY GAR Attending Unavailable RAMY GAR Attending Unavailable RAMY GAR Attending Unavailable Allergies Allergy ClassificationReported Allergen(s)Allergy TypeDate of OnsetReaction(s) Facility (20 sources)Codeine; Translations: [codeine]Drug Vmwgsht55-87-4417Tlywmxh (qualifier value), Hives, Other, Eruption of skin (disorder), Hyperactive behavior (finding), RashExecutive Urology of [facility] (1 source)CodeineDrug [id number] (1 source)patient allergy list reviewed by nurse or physiciaPropensity to adverse bkyecftcn58-81-6670Xgpowab:[facility] Other (1 source)Allergies ReconciledPropensity to adverse reactionsWashington University Medical Center [email or web address] Other Medications Current Medications MedicationDrug Class(es)DatesSig (Normalized)Sig (Original)acetaminophen 325 mg oral tablet (7 sources)Start: 10-16-9876ctad 2 tablets by mouth every four hoursTylenol 325 mg Tab = 2 tab(s), Oral, q4hr, Pain - Moderate Start Date: 04/18/23 Status: Ordered Repeat number: 1acetaminophen 325 mg / HYDROcodone bitartrate 5 mg oral tablet (2 sources)Opioid AgonistStart: 06-13-2023 End: 37-75-5887yvxmseblqvzvm-hydrocodone 325 mg-5 mg oral tablet 1 tab(s), Oral, q4hr Pain for 2 day(s), 5 tab(s),Refill(s) 0, [id number], 163.5, cm, 06/13/23 10:01:00 EDT, Height/Length Dosing, 87.1, kg, 06/13/23 10:01:00 EDT, Weight Dosing Start Date: 06/13/23 Stop Date: 06/15/23 Status: OrderedStart: 04-18-2023 End: 94-04-4135cljypaksjrrpf-hydrocodone 325 mg-5 mg oral tablet 1 tab(s), Oral, q4hr Pain for 2 day(s), 7 tab(s),Refill(s) 0, N20.0, [id number], 165, cm, 04/01/23 6:28:00 EST, Height/Length Dosing, 94.7, kg, 04/01/23 6:28:00 EST, Weight Dosing Start Date: 04/18/23 Stop Date: 04/20/23 Status: OrderedAmphetamine / Dextroamphetamine (5 sources)Central Nervous System StimulantAdderall XR Activecarvedilol 6.25 mg oral tablet (4 sources)alpha-Adrenergic Steven, beta-Adrenergic BlockerStart: 06-05-2023 carvedilol 6.25 mg Tab Refills(s) 0 Start Date: 06/05/23 Status: Ordered Repeat number: 1cephalexin 500 mg oral capsule (1 source)Cephalosporin AntibacterialStart: 04-18-2023 End: 81-94-9039xweb 1 capsule by mouth every twelve hourscephalexin 500 mg Cap 500 mg = 1 cap(s), Oral, q12hr, X 5 day(s), # 10 cap(s), Refills(s) 0, Pharmacy: [id number], 165, cm, 04/01/23 6:28:00 EST, Height/Length Dosing, 94.7, kg, 04/01/23 6:28:00 EST, Weight Dosing Start Date: 04/18/23 Stop Date: 04/23/23 Status: Orderedciprofloxacin 500 mg oral tablet (3 sources)Quinolone AntimicrobialStart: 78-21-8024nedj 1 tablet by mouth twice dailyCipro 500 mg Tab 500 mg = 1 tab(s), Oral, BID, # 10 tab(s), Refills(s) 0, Pharmacy: [id number], 163.5, cm, 06/13/23 10:01:00 EDT, Height/Length Dosing, 87.1, kg, 06/13/23 10:01:00 EDT, WeightDosing Start Date: 06/13/23 Status: Ordered Quantity: 10.0 Unit: tab(s) Repeat number: 1famotidine 20 mg oral tablet (20 sources)Histamine-2 Receptor AntagonistStart: 01-29-2023 End: 20-92-5359pdth 1 tablet by mouth once dailyfamotidine 20 mg Tab 20 mg = 1 tab(s), Oral, Daily, Refills(s) 0, Control of stomach acid Start Date: 03/29/23 Status: Ordered Repeat number: 1labetalol hydrochloride 100 mg oral tablet (17 sources)beta-Adrenergic BlockerStart: 07-02-2023 End: 71-47-3436zirr 1 tablet by mouth in the morninglabetalol (Normodyne) 100 MG tablet Indications: Secondary hypertension Take 1 tablet (100 mg) by mouth in the morning and 1 tablet (100 mg) before bedtime. 60 tablet 11 09/15/2024 09/15/2025 ActivemedroxyPROGESTERone acetate 10 mg oral tablet (11 sources)ProgestinStart: 10-27-2024 End: 64-68-6598vfxh 1 tablet by mouth once daily, then take 1 tablet by mouth once dailymedroxyPROGESTERone (Provera) 10 MG tablet Indications: Abnormal uterine bleeding (AUB) Take 1 tablet (10 mg) by mouth Daily Take 1 tablet by mouth daily 10 tablet 3 10/27/2024 10/27/2025 ActiveStart: 07-17-2023 End: 44-54-2930irkvch 1 mL by intramuscular injection every 30 days medroxyPROGESTERone (Depo-Provera) 150 MG/ML injection Indications: Encounter for contraceptive management, unspecified INJECT 1 ML INTRAMUSCULAR EVERY 30 DAYS 1 mL 3 07/17/2023 08/19/2024 Discontinued (Therapy completed)Start: 10-09-3820xrgvrlqKIKICWPIVgmt (Depo-Provera) 150 MG/ML suspension prefilled syringe injection syringe Indications: Encounter for surveillance of injectable contraceptive 1 mL Intramuscular 0.9 mL 1 03/07/2023 ActivemedroxyPROGESTERone 150 mg/mL IM Susp (8 sources)Start: 81-08-6723flnlbj 150 mg by intramuscular injection every three monthsmedroxyPROGESTERone 150 mg/mL IM Susp 150 mg = 1 mL, IntraMuscular, q3mo, Refills(s) 0, control/menstrual regulation Start Date: 03/29/23 Status: Ordered Repeat number: 1Start: 91-96-1329xcwlwt 150 mg by intramuscular injection every three monthsmedroxyPROGESTERone 150 mg/mL IM Susp 150 mg = 1 mL, IntraMuscular, q3mo, Refills(s) 0, control/menstrual regulation Start Date: 03/29/23 Status: OrderedmetFORMIN hydrochloride 500 mg oral tablet (9 sources)BiguanideStart: 09-15-2024 End: 90-99-3641bfii 1 tablet by mouth at mealtimemetFORMIN (Glucophage) 500 MG tablet Indications: PCOS (polycystic ovarian syndrome) , Insulin resistance Take 1 tablet (500 mg) by mouth in the morning. Take with meals. 30 tablet 11 09/15/2024 09/15/2025 ActiveNIFEdipine 30 mg osmotic 24 hr extended release oral tablet (6 sources)Dihydropyridine Calcium Channel BlockerStart: 10-27-2024 End: 68-86-2821fcax 1 tablet by mouth once dailyNIFEdipine XL (Procardia XL) 30 MG 24 hr tablet Indications: Elevated BP without diagnosis of hypertension Take 1 tablet (30 mg) by mouth Daily Do not crush, chew, or split. 30 tablet 11 10/27/2024 10/27/2025 Activeoxybutynin chloride 5 mg oral tablet (5 sources)Cholinergic Muscarinic AntagonistStart: 04-18-2023 End: 18-42-6111vzse 1 tablet by mouth twice dailyoxybutynin 5 mg Tab 5 mg = 1 tab(s), Oral, BID, X 30 day(s), # 60 tab(s), Refills(s) 1, [id number], 165, cm, 04/01/23 6:28:00 EST, Height/Length Dosing, 94.7, kg, 04/01/23 6:28:00 EST, Weight Dosing Start Date: 04/18/23 Stop Date: 06/17/23 Status: Orderedsertraline 50 mg oral tablet (1 source)Serotonin Reuptake InhibitorStart: 40-12-7292vvle 1 tablet by mouth once dailySertraline (Zoloft) 50 mg tablet Active 50 MG PO Daily March 06, 2024 12:00amsulfamethoxazole 800 mg / trimethoprim 160 mg oral tablet (1 source)Dihydrofolate Reductase Inhibitor Antibacterial, Sulfonamide AntimicrobialStart: 05-16-2023 End: 83-45-5258Dvkvrje D.S. 800 mg-160 mg Tab 1 tab(s), Oral, BID for 10 day(s), 20 tab(s), Refill(s) 0, [id number], 165, cm, 04/01/23 6:28:00 EST, Height/Length Dosing, 94.7, kg, 04/01/23 6:28:00 EST, Weight Dosing Start Date: 05/16/23 Stop Date: 05/26/23 Status: OrderedSUMAtriptan 100 mg oral tablet (20 sources)Serotonin-1b and Serotonin-1d Receptor AgonistStart: 05-09-2023 End: 90-97-7494kwpr 1 tablet by mouth once daily as needed for headache SUMAtriptan 100 mg Tab 100 mg = 1 tab(s), Oral, Daily, PRN Headache, Refills(s) 0 Start Date: 06/13/23 Status: Ordered Repeat number: 1Start: 04-23-2023 End: 34-20-7347vxsj 4 tablets by mouth every twenty-four hours as needed for headacheSumatriptan Succinate 50 mg tablet Discontinued 50 MG PO EVERY 2-4 HOURS as needed for migraine headache April 23, 2023 12:00am March 06, 2024 10:11am do not exceed 4 doses per 24 hrsStart: 63-25-0113ucrs 1 tablet by mouth every two hours as needed, then take 1 tablet by mouth twice daily as needed SUMAtriptan Succinate 50 MG 1 tablet at least 2 hours between doses as needed Orally Twice a day prn for 30 days May, ActiveSUMAtriptan Succinate 50 MG TAKE 1 TABLET BY MOUTH ONCE DAILY. MAY REPEAT AT LEAST 2 HOURS BETWEEN DOSES NEEDED for 30 Activetamsulosin hydrochloride 0.4 mg oral capsule (6 sources)alpha-Adrenergic BlockerStart: 98-50-4441jilk 1 capsule by mouth once dailyFlomax 0.4 mg Cap 0.4 mg = 1 cap(s), Oral, Daily, # 30 cap(s), Refills(s) 0, Pharmacy: [id number], 165, cm, 04/01/23 6:28:00 EST, Height/Length Dosing, 94.7, kg, 04/01/23 6:28:00 EST, Weight Dosing Start Date: 05/16/23 Status: Ordered Quantity: 30.0 Unit: cap(s) Repeat number: 1tiZANidine 4 mg oral tablet (6 sources)Central alpha-2 Adrenergic AgonistStart: 84-64-2115swjy 1 tablet by mouth once daily at bedtime as neededtiZANidine HCl 4 MG 1 tablet as needed Orally qhs for 30 days Apr, Activetopiramate 25 mg oral tablet (12 sources)Start: 05-09-2023 End: 02-34-4702ujah 1 tablet by mouth twice dailytopiramate 25 mg Tab 25 mg = 1 tab(s), Oral, BID, Refills(s) 0 Start Date: 06/13/23 Status: Ordered Repeat number: 124 hr venlafaxine 37.5 mg extended release oral capsule (3 sources)Serotonin and Norepinephrine Reuptake InhibitorStart: 12-07-2024 End: 11-80-8492ysjb 1 capsule by mouth once dailyvenlafaxine XR (Effexor XR) 37.5 MG 24 hr capsule Indications: Anxiety, generalized Take 1 capsule (37.5 mg) by mouth Daily Do not crush or chew. 30 capsule 3 12/07/2024 01/06/2025 Active Completed/Discontinued Medications MedicationDrug Class(es)DatesSig (Normalized)Sig (Original)amphetamine aspartate 5 mg / amphetamine sulfate 5 mg / dextroamphetamine saccharate 5 mg / dextroam phetamine sulfate 5 mg oral tablet (20 sources)Central Nervous System StimulantStart: 07-17-2023 End: 74-09-9938puod 1 tablet by mouth every four to six hoursDextroamphetamine- Amphetamine (Adderall) 20 mg tablet Discontinued 20 MG PO Twice daily October 31, 2023 December 13, 2023 7:27am administer doses at least 4-6 hours apartStart: 04-18-2023 End: 91-41-0617kqrg 1 tablet by mouth twice dailyDextroamphetamine-Amphetamine 15 mg tablet Discontinued 15 MG PO Twice daily April 18, 2023 12:00am July 17, 2023 11:13amStart: 24-61-4712ygdx 25 mg by mouth twice dailyAdderall 25 mg, Oral, BID, Refill(s) 0 Start Date: 03/19/23 Status: Ordered Repeat number: 1 Start: 92-12-3895meak 25 mg by mouth twice dailyAdderall 25 mg, Oral, BID, Refill(s) 0 Start Date: 03/19/23 Status: OrderedStart: 63-12-6264qolfzxjoiid- dextroamphetamine 15 mg oral tablet Refill(s) 0 Start Date: 03/19/23 Status: OrderedStart: 66-85-3691xhdl 1 tablet by mouth every twelve hoursAdderall 15 MG 1 tablet Orally Twice a day for 30 days Feb, ActiveStart: 00-50-0223ypvh 1 tablet by mouth every twelve hoursAdderall 15 MG 1 tablet Orally Twice a day for 30 days Jan, ActiveStart: 32-35-2159ylfl 1 tablet by mouth every twelve hoursAdderall 15 MG 1 tablet Orally Twice a day for 30 days Oct, ActiveStart: 34-36-7073gkdt 1 tablet by mouth every twelve hoursAdderall 10 MG 1 tablet Orally Twice a day for 30 days June, ActiveStart: 46-38-0199oqdf 1 tablet by mouth every twelve hoursAdderall 10 MG 1 tablet Orally Twice a day for 30 days May, ActiveStart: 19-31-0637jotz 1 tablet by mouth every twelve hoursAdderall 10 MG 1 tablet Orally Twice a day for 30 days Apr, ActiveStart: 04-10-2022 End: 55-75-4756smxs 1 capsule by mouth every twenty-four hoursAdderall XR 25 MG 1 capsule Orally Once a day for 30 days Mar, Activeatomoxetine 40 mg oral capsule (1 source)Norepinephrine Reuptake InhibitorStart: 12-13-2023 End: 98-28-7988jrae 1 capsule by mouth once daily in the morningAtomoxetine (Strattera) 40 mg capsule Discontinued 40 MG PO Every morning December 12, 2023 11:00pm March 06, 2024 10:10amazithromycin 250 mg oral tablet (2 sources)Macrolide AntimicrobialStart: 11-14-2023 End: 25-46-3917Hhjryyundvos 250 mg tablet Discontinued 0 PO .COMPLEX November 13, 2023 11:00pm December 13, 2023 7:28am For 250 mg dose pack: take 500 mg today (day 1), then 250 mg for 4 days (days 2-5) POStart: 11-14-2023 End: 61-77-8803Feubebciiefc Discontinued 0 PO .COMPLEX November 14, 2023 12:00am December 13, 2023 8:28am For 250 mg dose pack: take 500 mg today (day 1), then 250 mg for 4 days (days 2-5) POcefdinir 300 mg oral capsule (2 sources)Cephalosporin AntibacterialStart: 12-13-2023 End: 30-94-7626ilnd 1 capsule by mouth twice dailyCefdinir 300 mg capsule Discontinued 300 MG PO Twice daily December 12, 2023 11:00pm March 06, 2024 10:10amibuprofen 800 mg oral tablet (16 sources)Nonsteroidal Anti-inflammatory DrugStart: 04-18-2023 End: 04-51-9331fvss 1 tablet by mouth every eight hours as neededIbuprofen 800 mg tablet Discontinued 800 MG PO Every 8 hours as needed April 18, 2023 12:00am December 13, 2023 7:28amStart: 87-17-3716bmlkitnxv 800 MG tablet every 6 (six) hours if needed. 0 01/24/2022 Activetake 1 tablet by mouth every eight hours at mealtimeIbuprofen 800 MG TAKE 1 TABLET BY MOUTH EVERY 8 HOURS WITH FOOD OR MILK NEEDED 30 for 30 Lkwrip82 hr metoprolol succinate 25 mg extended release oral tablet (18 sources)beta-Adrenergic BlockerStart: 03-29-2023 End: 87-10-3142ylof 1 tablet by mouth once dailyMetoprolol Succinate 25 mg tablet extended release 24 hr Discontinued 25 MG PO Daily April 26, 2023 4:51pm July 17, 2023 11:09amStart: 84-32-0918heqe 1 tablet by mouth once daily metoprolol succinate XL (Toprol-XL) 25 MG 24 hr tablet TAKE 1 TABLET BY MOUTH EVERY DAY FOR 30 DAYS0 02/24/2023 Activeomeprazole 20 mg delayed release oral capsule (8 sources)Proton Pump InhibitorStart: 04-18-2023 End: 69-40-3519ekha 1 capsule by mouth once dailyOmeprazole 20 mg capsule,delayed release(DR/EC) Discontinued 20 MG PO Daily April 18, 2023 12:00am April 23, 2023 3:14pmStart: 11-43-9782ppmz 1 capsule by mouth once dailyOmeprazole 20 MG 1 capsule 30 minutes before morning meal Orally Once a day for 30 day(s) Nov, Active Problems Active Problems Problem ClassificationProblemDateDocumented DateEpisodic/ChronicAnxiety disorders (20 sources)Mixed anxiety and depressive disorder; Translations: [Anxiety disorder, unspecified]Onset: 07-27-2022 Resolved: 82-48-850056198150-75-8548HqsvrxhGjtlpznju-okgfmfa, conduct, and disruptive behavior disorders (15 sources)Attention deficit hyperactivity disorder; Translations: [Attention- deficit hyperactivity disorder, unspecified type]Onset: ChronicBlindness and vision defects (1 source)Visual impairment; Translations: [Unspecified visual loss]Onset: 51-68-1148NucerrlQhbbscqjr and vision defects (1 source)Unspecified visual disturbanceEpisodicChronic obstructive pulmonary disease and bronchiectasis (3 sources)Bronchitis; Translations: [Bronchitis, not specified as acute or chronic]95-89-1216EgtufzmvXlkguseqadzbe and procreative management (2 sources)Surveillance of depot contraception done; Translations: [Encounter for surveillance of injectable contraceptive]EpisodicDisorders usually diagnosed in infancy, childhood, or adolescence (20 sources)Adult attention deficit hyperactivity disorder ; Translations: [Other specified behavioral and emotional disorders with onset usually occurring in childhood and adolescence]Onset: 56-13-6304FuoqkelUvmyk or threatened labor (1 source)Premature/false labor; Translations: [ labor without delivery, unspecified trimester]EpisodicEsophageal disorders (20 sources)Gastroesophageal reflux disease; Translations: [Gastro-esophageal reflux disease without esophagitis]Onset: 94-73-1797EfyfbqnZoncyayus hypertension (20 sources)Essential hypertension; Translations: [Essential (primary) hypertension]Onset: 69-07-3196MmidcaaFtpnhg infertility (2 sources)Female infertility; Translations: [Female infertility, unspecified] 35-24-6266WmqnnzqFhvbxvocgorxk symptoms and ill-defined conditions (5 sources)Dysuria; Translations: [Dysuria]Onset: 05-20-2023 Resolved: 31-86-1398LkoswguhUhxcdzyq; including migraine (20 sources)Migraine with aura; Translations: [Migraine with aura, not intractable, without status migrainosus]Onset: 07-02-2023 Resolved: 342891-47-2956XsipbltJdajboms; including migraine (4 sources)Headache; including migraine; Translations: [HEADACHE UNSPECIFIED] Onset: 95-54-3166Zpvqdbmaynzt complicating ; childbirth and the puerperium (1 source)Pre-eclampsia; Translations: [Mild to moderate pre-eclampsia, unspecified trimester]EpisodicHypertension with complications and secondary hypertension (2 sources)Secondary hypertension; Translations: [Secondary hypertension, unspecified]28-70-3793FkvmldnNffozasarrom; infection of eye (except that caused by tuberculosis or sexually transmitteddisease) (3 sources)Conjunctivitis; Translations: [Unspecified conjunctivitis]Onset: 03-05-2017 Resolved: 34-12-4155ZdcfmqaiPoyqmawjhaqb diseases of female pelvic organs (1 source)Acute vaginitis; Translations: [Acute vaginitis]EpisodicMenstrual disorders (20 sources)Menorrhagia; Translations: [Excessive and frequent menstruation with regular cycle]Onset: 05-18-2022 Resolved: 17-20-7680DywhrfxGlcujh and vomiting (1 source)VomitingOnset: 68-18-5353YzocowqfIgbymvcbtypwo gastroenteritis (1 source)Noninfective gastroenteritis and colitis, unspecified; Translations: [Noninfective gastroenteritis and colitis, unspecified]Onset: 79-51-7932Lzeqwwjh Other aftercare (1 source)Long-term current use of drug therapy; Translations: [Other termite control technician (current) drug therapy]EpisodicOther circulatory disease (3 sources)Elevated blood-pressure reading without diagnosis of hypertension; Translations: [Elevated blood-pressure reading, without diagnosis of hypertension]74-23-6104PsbgtbzdTlekj complications of ; puerperium affecting management of mother (1 source)Complication of the puerperium; Translations: [Other complications of the puerperium, not elsewhereclassified]EpisodicOther complications of (1 source)Vomiting of ; Translations: [Vomiting of , unspecified]EpisodicOther complications of (1 source)Urinary tract infection in ; Translations: [Unspecified infection of urinary tract in , unspecified trimester]EpisodicOther complications of (1 source)Finding related to ; Translations: [Other specified related conditions, unspecified trimester]EpisodicOther complications of (1 source)Other maternal infectious and parasitic diseases complicating , unspecified trimester; Translations: [Other maternal infectious and parasitic diseases complicating , unspecified trimester]EpisodicOther endocrine disorders (4 sources)Polycystic ovary syndrome; Translations: [Polycystic ovarian syndrome]63-87-6285HydvejiRtqyf female genital disorders (3 sources)Abnormal uterine bleeding; Translations: [Abnormal uterine and vaginal bleeding, unspecified] Resolved: 013927-45-8724WofzvrgSfejq female genital disorders (1 source)Abnormal uterine and vaginal bleeding, unspecified; Translations: [Abnormal uterine and vaginal bleeding, unspecified]Onset: 84-04-2232Onsrxvh Other female genital disorders (2 sources)Vaginal bleedingOnset: 95-38-3841InrwkbqMrnzv female genital disorders (2 sources)Pain in female genitalia on intercourse; Translations: [Unspecified dyspareunia]60-64-5995SbjokbkJrhpm female genital disorders (1 source)Noninflammatory disorder of the vagina; Translations: [Other specified noninflammatory disorders ofvagina]EpisodicOther female genital disorders (2 sources)Pain in female pelvis; Translations: [Pelvic pain in female] 09-97-4139XwsfwhluKaepb nutritional; endocrine; and metabolic disorders (2 sources)Obese class I; Translations: [Body mass index (BMI) 31.0-31.9, adult] ChronicOther nutritional; endocrine; and metabolic disorders (1 source)Body mass index 30+ - obesity; Translations: [Body mass index (BMI) 30.0-30.9, adult]ChronicOther nutritional; endocrine; and metabolic disorders (2 sources)Insulin resistance; Translations: [Insulin resistance]09-15-2024 ChronicOther nutritional; endocrine; and metabolic disorders (1 source)Body mass index 25-29 - overweight; Translations: [Body mass index (BMI) 29.0-29.9, adult]EpisodicOther and delivery including normal (6 sources)Delivery normal; Translations: [Encounter for full-term uncomplicated delivery] Resolved: 58-16-3127SqsqkzvrCkjrv screening for suspected conditions (not mental disorders or infectious disease) (2 sources)Urine test negative; Translations: [Encounter for test, result negative]EpisodicOther upper respiratory infections (7 sources)Acute pharyngitis, unspecified; Translations: [Acute pharyngitis] Onset: 02-13-2013 Resolved: 22-64-2910WwiqmldkQeujvusn codes; unclassified (1 source)Gestation period, 36 weeks; Translations: [36 weeks gestation of ]EpisodicResidual codes; unclassified (1 source)Gestation period, 34 weeks; Translations: [34 weeks gestation of ]EpisodicResidual codes; unclassified (1 source)Gestation period, 35 weeks; Translations: [35 weeks gestation of ]EpisodicResidual codes; unclassified (1 source)Gestation period, 11 weeks; Translations: [11 weeks gestation of ]EpisodicSpondylosis; intervertebral disc disorders; other back problems (13 sources)Low back pain; Translations: [Lumbar pain]Onset: 19-49-3444Jxofjvcv Substance-related disorders (9 sources)Nicotine dependence, other tobacco product, uncomplicated; Translations: [Smoker]Onset: 124036-90-4373NxoticpBqkssac on above:Added secondary to documentation in Social History.Superficial injury; contusion (1 source)Nonvenomous insect bite of trunk without infection; Translations: [Insect bite (nonvenomous) of abdominal wall, initial encounter]EpisodicUrinary tract infections (1 source)Urinary tract infectious disease; Translations: [Urinary tract infection, site not specified]EpisodicViral infection (1 source)Verruca vulgaris; Translations: [Other viral warts]Episodic Past or Other Problems Problem ClassificationProblemDateDocumented DateEpisodic/ChronicAbdominal pain (20 sources)Abdominal pain; Translations: [Unspecified abdominal pain]Onset: 79-07-5560UdmldiibUtqharkujmigao/social admission (19 sources)Stress; Translations: [Other psychological or physical stress, not elsewhere classified]Onset: 911344-12-3958FwxyfgyrRvhnqxux of urinary tract (20 sources)Kidney stone; Translations: [Calculus of kidney]Onset: 07-27-2022 EpisodicCardiac dysrhythmias (18 sources)Palpitations; Translations: [Palpitations]Onset: 02-01-2022 59-06-9101SffjtbwePzvugsnbre associated with dizziness or vertigo (19 sources)Dizziness and giddiness; Translations: [Dizziness and giddiness] Onset: 131253-00-3682JyrkdkbeYvnzhmdx; including migraine (1 source)Headache; Translations: [Headache]Onset: 31-93-5697Gakqlpfg Hypertension complicating ; childbirth and the puerperium (1 source)Unspecified maternal hypertension, complicating the puerperium; Translations: [Unspecified maternalhypertension, complicating the puerperium] Resolved: 95-88-7183ZdvdystGcebigoxcnxtd and screening for infectious disease (2 sources)Contact with and (suspected) exposure to other viral communicable diseases; Translations: [Sexuallytransmitted infectious disease]Onset: 02-09-2021 Resolved: 50-66-6574BxbyrduzQyktsbp and fatigue (1 source)Malaise and fatigue; Translations: [Other malaise and fatigue]Onset: 84-17-2047QsohvacdNsvyjxz (1 source)Candidiasis; Translations: [Candidiasis, unspecified] Resolved: 28-77-8046FxkqgjsqXypryphfhij chest pain (18 sources)Atypical chest pain; Translations: [Other chest pain]Onset: [id number] complications of (1 source)Complication occurring during ; Translations: [Other specified related conditions, second trimester] Resolved: 26-78-2629IqxdwzbcCmmcw complications of (18 sources)Disorder of ; Translations: [Other specified related conditions, unspecified trimester]Onset: 414160-84-2344Elxrpswn Other connective tissue disease (1 source)Pain in forearm; Translations: [Pain in joint, forearm]Onset: 54-17-7788EslutvaiNrtte ear and sense organ disorders (19 sources)Impacted cerumen; Translations: [Impacted cerumen, bilateral]Onset: 856261-23-2124EnrrarftAnlmm female genital disorders (18 sources)Vaginal discharge; Translations: [Other specified noninflammatory disorders of vagina]Onset: 996525-71-5038JhhbejdgFpclr female genital disorders (4 sources)Pelvic and perineal pain; Translations: [Pelvic and perineal pain] Onset: 705809-65-9580YilmmbpmBbxxm lower respiratory disease (18 sources)Dyspnea on exertion; Translations: [Other forms of dyspnea]Onset: 364880-50-2571AwnvenuaRmbsy non-traumatic joint disorders (1 source)Arthralgia of the ankle and/or foot; Translations: [Pain in unspecified ankle and joints of unspecified foot]Onset: 42-09-5152VifgxnuqRzrdy skin disorders (1 source)Acne vulgaris; Translations: [Acne vulgaris] Resolved: 25-62-1142YwexlmtrTobez upper respiratory infections (1 source)Chronic sinusitis; Translations: [Chronic sinusitis, unspecified] Resolved: 06-31-2113HoulwxkQlaytfst codes; unclassified (1 source)Insomnia; Translations: [Insomnia, unspecified]Onset: 03-05-2017 EpisodicResidual codes; unclassified (1 source)Gestation period, 15 weeks; Translations: [15 weeks gestation of ] Resolved: 00-68-5126YyjoooykKblnimou codes; unclassified (1 source)Gestation period, 33 weeks; Translations: [33 weeks gestation of ] Resolved: 65-38-9415MiulnmupSgmaxara codes; unclassified (1 source)Gestation period, 29 weeks; Translations: [29 weeks gestation of ] Resolved: 93-06-4701MijnejgfQegrwwyp codes; unclassified (1 source)Gestation period, 31 weeks; Translations: [31 weeks gestation of ] Resolved: 60-91-3393QrkgkaacEibxxdgg codes; unclassified (1 source)Gestation period, 25 weeks; Translations: [25 weeks gestation of ] Resolved: 23-71-7754AcpowxrcHmkeaelc codes; unclassified (1 source)Gestation period, 27 weeks; Translations: [27 weeks gestation of ] Resolved: 04-23-9969VpdtqlhuHdzzdzgk codes; unclassified (1 source)Gestation period, 19 weeks; Translations: [19 weeks gestation of ] Resolved: 51-85-3726GiwyhdogYyutcadi codes; unclassified (1 source)Gestation period, 23 weeks; Translations: [23 weeks gestation of ] Resolved: 32-60-5424EsvbagbrHjhnnqbrm-related disorders (1 source)Drug-induced insomnia; Translations: [Insomnia due to medical condition classified elsewhere]Onset: 65-01-7770NwrkleneVefeqhn (20 sources)Syncope and collapse; Translations: [Syncope and collapse]Onset: 173821-37-2531StcmoswnKxznldnofmcs (1 source)Homeless family Z59.00Unclassified (1 source)Vaccine product containing only acellular Bordetella pertussis and Clostridium tetani and Corynebacterium diphtheriae antigens (medicinal product); Translations: [Rdgabwxyfs-skfctis-hjwggeoce, combined [DTP] [DtaP]]Onset: 91-61-1467Smoynqcwwfjd (1 source)Other specified indication for care or intervention related to labor and delivery, unspecified as to episode of care; Translations: [Other specified indication for care or intervention related to labor and delivery, unspecified as to episode of care] Results Test NameValueInterpretationReference RangeFacilityRECURRENT VAGINITIS (HTRX)on 95-87-7717VLGINWHDV WTAKQJY52.127AbnormalNOMS HealthcareATOPOBIUM VAGINAE DetectedAbnormalNOMS HealthcareBVAB 2,3 (BACTERIAL VAGINOSIS ASSOCIATED BACTERIA 2, 3); MOBILUNCUS FRS5URSB HealthcareBVAB 2,3 (BACTERIAL VAGINOSIS ASSOCIATED BACTERIA 2, 3); MOBILUNCUS SPPNot detectedNOMS HealthcareCANDIDA ALBICANS, PARAPSILOSIS, NCCBLNJIVX3BMAB HealthcareCANDIDA ALBICANS, PARAPSILOSIS, TROPICALISNot detectedNOMS HealthcareCANDIDA AYSPHGRP3PLWY HealthcareCANDIDA GLABRATANot detectedNOMS HealthcareCANDIDA ALGOYG5OUET HealthcareCANDIDA KRUSEI Not detectedNOMS HealthcareCHLAMYDIA EMECICDDTXZ1PZRP HealthcareCHLAMYDIA TRACHOMATISNot detectedNOMS HealthcareGARDNERELLA YXSQGDTQL7PYQC Healthcare GARDNERELLA VAGINALISNot detectedNOMS HealthcareInterpretation and review of laboratory resultsAbnormalNOMS HealthcareMEGASPHAERA (TYPES 1, 2)0NOMS HealthcareMEGASPHAERA (TYPES 1, 2)Not detectedNOMS HealthcareMYCOPLASMA SXRQZXJVPJ0FJGF HealthcareMYCOPLASMA GENITALIUMNot detectedNOMS Healthcare NEISSERIA ZGNSTCDSITW4KCHR HealthcareNEISSERIA GONORRHOEAENot detectedNOMS HealthcareTRICHOMONAS AQIYRNTXY3RVHH HealthcareTRICHOMONAS VAGINALISNot detected NOMS HealthcareNOMS HealthcareHCG ( test) Ql (U)on 12-07-2024 Interpretation and review of laboratory resultsNormalNOMS HealthcarePreg Test, UrNegativeNegativeNOMS HealthcareNOMS HealthcareUrinalysis macro (dipstick) panel (U)on 54-40-0608Undammfvu, UANegativeNegative - 4(70) +++ mg/dLNOMS HealthcareBlood, UAPositiveNegative - 50 Mo/mcLNOMS HealthcareClarity, UAClear NOMS HealthcareColor, UAYellowNOMS HealthcareGlucose, UANegativeNegative - 2000(110) ++++ mg/dLNOMS HealthcareInterpretation and review of laboratory resultsAbnormalNOMS HealthcareKetones, UANegativeNegative - 160(16) ++++ mg/dL NOMS HealthcareLeukocytes, UANegativeNegative - 500+++ Mitchell/mcLNOMS Healthcare Nitrite, UANegativeNegative - PositiveNOMS HealthcarepH, UA5.55 - 9NOMS HealthcareProtein, UANegativeNegative - 2000(20) ++++ mg/dLNOMS HealthcareSpec Grav, UA1.0301 - 1.03NOMS HealthcareUrobilinogen, UA1.00.2 - 12 mg/dLNOMS HealthcareNOMS HealthcareAPTTon 83-77-8199lRDT Coag (Bld) [Time]29 cVbffli28-26 [facility] HospitalComment on above:Performed By: #### 2106-3 #### [facility] ([id number]) [address] [place] [address] WITH AUTO DIFFERENTIALon 80-80-8424MLZURNKJA ABSOLUTE COUNT (10*3/UL) BY AUTOMATED COUNT0.1 10*3/uLNormal0.0-0.2[facility] Comment on above:Performed By: #### CBCA #### [facility]) [address] [place] [address] VIRBASOPHILS RELATIVE PERCENT BY AUTOMATED COUNT0.9 %Normal [facility] HospitalComment on above:Performed By: #### CBCA #### [facility]) [address] [place] [address] VIRCELLAVISION DIFFERENTIAL TYPEAUTOMATED DIFFERENTIALNormal [facility] HospitalComment on above:Performed By: #### CBCA #### [facility] ([address] [place] [address] VIREosinophils (Bld) [#/Vol]0.1 10*3/uLNormal0.0-0.4[facility] HospitalComment on above:Performed By: #### CBCA #### [facility] ([address] [place] [address] VIREOSINOPHILS RELATIVE PERCENT BY AUTOMATED COUNT0.9 %Normal [facility] HospitalComment on above:Performed By: #### CBCA #### [facility] ([address] [place] [address] VIRErythrocyte distribution width (RBC) [Ratio]13.6 %Normal 11.5-15ProHemphill County HospitalComment on above:Performed By: #### CBCA #### [facility] ([address] [place] [address] VIRHematocrit (Bld) [Volume fraction]43.7 %Qnbhtx52-91 [facility] HospitalComment on above:Performed By: #### CBCA #### [facility] ([address] [place] [address] VIRHemoglobin (Bld) [Mass/Vol]14.9 g/uWOjgryz25.7-15.5 [facility] HospitalComment on above:Performed By: #### CBCA #### [facility] ([address] [place] [address] VIRLYMPHOCYTES ABSOLUTE COUNT (10*3/UL) BY AUTOMATED COUNT2.5 10*3/uLNormal1.0-3.5PMain Campus Medical CenterComment on above:Performed By: #### CBCA #### [facility] ([address] [place] [address] VIRLYMPHOCYTES RELATIVE PERCENT BY AUTOMATED COUNT21.0 %Normal [facility] HospitalComment on above:Performed By: #### CBCA #### [facility] ([address] [place] [address] VIRMCH (RBC) [Entitic mass]30.3 zuUxutzj54-23LawPfinrrHemphill County HospitalComment on above:Performed By: #### CBCA #### [facility] ([address] [address] VIRMCHC (RBC) [Mass/Vol]34.2 g/pQLikdxl20-39LzlDsqmuiHemphill County HospitalComment on above:Performed By: #### CBCA #### [facility] ([address] [address] VIRMCV (RBC) [Entitic vol]89 fJGvdtkq91-106JyxRriaqw [facility] HospitalComment on above:Performed By: #### CBCA #### [facility] ([address] [address] VIRMONOCYTES ABSOLUTE COUNT (10*3/UL) BY AUTOMATED COUNT0.7 10*3/uLNormal0.0-0.9[facility] HospitalComment on above:Performed By: #### CBCA #### [facility] ([address] [place] [address] VIRMONOCYTES RELATIVE PERCENT BY AUTOMATED COUNT6.3 %Normal [facility] HospitalComment on above:Performed By: #### CBCA #### [facility] ([address] [address] VIRNEUTROPHILS ABSOLUTE COUNT BY AUTOMATED COUNT8.3 10*3/uL High1.5-6.6ProHemphill County HospitalComment on above:Performed By: #### CBCA #### [facility] ([address] [place] [address] VIRNEUTROPHILS RELATIVE PERCENT BY AUTOMATED COUNT70.9 %Normal [facility] HospitalComment on above:Performed By: #### CBCA #### [facility]) [address] [place] [address] [place] [address] VIRPlatelet mean volume (Bld) [Entitic vol]9.4 fLNormal7-12 [facility] HospitalComment on above:Performed By: #### CBCA #### [facility]) [address] [place], [place] [address]. [place] [address] VIRPlatelets (Bld) [#/Vol]262 10*3/oXHilbqn752-573DwfPmpbzl [facility] HospitalComment on above:Performed By: #### CBCA #### [facility]) [address] [place] [address]. [place] [address] VIRRBC COUNT4.93 X10E12/LNormal3.8-5.2PMain Campus Medical CenterComment on above:Performed By: #### CBCA #### [facility]) [address] [place] [address]. [place] [address] VIRWBC (Bld) [#/Vol]11.7 10*3/uLHigh4-11[facility] HospitalComment on above:Performed By: #### CBCA #### [facility]) [address] [place] [address]. [place] [address] VIRCOMPREHENSIVE METABOLIC PANELon 99-63-8590Prdplnz [Mass/Vol]4.6 g/dLNormal3.2-5.3PMain Campus Medical CenterComment on above: Performed By: #### 2106-3 #### [facility] ([id number]) [address] [place] [address], FIRST FLOOR [place], [place] [address]PPV [Catalytic activity/Vol]60 U/TIoserz06-163ZnfAoufwmHemphill County HospitalComment on above:Performed By: #### 2106-3 #### [facility] ([id number]) [address] [place] [address], [place] [address]YXB [Catalytic activity/Vol]62 U/LHigh<=31PMain Campus Medical CenterComment on above:Performed By: #### 6-3 #### [facility] ([id number]) [address] [place] [address], [place] [address]Rdnil gap [Moles/Vol]11 mmol/LNormal5-15ProHemphill County HospitalComment on above:Performed By: #### 6-3 #### [facility] ([id number]) [address] [place] [address], [place] [address]MXE [Catalytic activity/Vol]33 U/LNormal<=41ProHemphill County HospitalComment on above:Performed By: #### 6-3 #### [facility] ([id number]) [address] [place] [address], [place] [address]Hfwdsiaqm [Mass/Vol]1.1 mg/dLNormal0.3-1.2PMain Campus Medical CenterComment on above:Performed By: #### 6-3 #### [facility] ([id number]) [address] [place] [address], [place] [address]Ecxnmyt [Mass/Vol]9.0 mg/dLNormal8.5-10.5PMain Campus Medical CenterComment on above:Performed By: #### 6-3 #### [facility] ([id number]) [address] [place] [address], [place] [address]Qgcegfir [Moles/Vol]104 mmol/PLbxpnu07-765DazYsoyvqHemphill County HospitalComment on above:Performed By: #### 6-3 #### [facility] ([id number]) [address] [place] [address], [place] [address] [Moles/Vol]21 mmol/CHoo63-87GmiLxjaflMain Campus Medical Center Comment on above:Performed By: #### 6-3 #### [facility] ([id number]) [address] [place] [address]Udnofdrmlg [Mass/Vol]0.84 mg/dLNormal0.40-1.00[facility] HospitalComment on above:Result Comment: METHOD TRACEABLE TO IDMS STANDARD Performed By: #### 2106-3 #### [facility] ([id number]) [address] [place] [address]XSZH (CKD-EPI) NON-RACE DEPENDENT>^90Normal>=60ProHemphill County HospitalComment on above:Result Comment: eGFR not reported due to non- numeric value for Creatinine. Reported eGFR is based on the CKD-EPI 2020 equation that does not use a race coefficient.Performed By: #### 2106-3 #### [facility] ([id number]) [address] [place] [address]Fxzynyo [Mass/Vol]107 mg/rBLjyx96-23DdtPbmsspHemphill County Hospital Comment on above:Performed By: #### 6-3 #### [facility] ([id number]) [address] [place] [address]Cznvlrrmc [Moles/Vol]3.3 mmol/LLow3.5-5.0ProHemphill County HospitalComment on above:Performed By: #### 2106-3 #### [facility] ([id number]) [address] [place] [address]Tludams [Mass/Vol]7.8 g/dLNormal6.0-8.0ProHemphill County HospitalComment on above:Performed By: #### 2106-3 #### [facility] ([id number]) [address] [place] [address]Gmdagu [Moles/Vol]136 mmol/BLhmfjw196-273QesDiiyqw [facility] HospitalComment on above:Performed By: #### 2106-3 #### [facility] ([id number]) [address] [place] [address], [facility], [place] [address]Rdwi nitrogen [Mass/Vol]12 mg/dLNormal5-23ProHemphill County HospitalComment on above:Performed By: #### 2106-3 #### [facility] ([id number]) [address] [place] [address], [facility], [place] [address]VQFSGWwx 39-75-2663Wwctjr [Catalytic activity/Vol]27 U/LNormal 17-40ProHemphill County HospitalComment on above:Performed By: #### 2106-3 #### [facility] ([id number]) [address] [place] [address], [place], [place] [address]PNGB NURSING URINE MACROSCOPIC UAon 28-11-7512IYWBFSFJD NISREEN SmallAbnormalNegativeProMedica Fostoria Community HospitalComment on above:Performed By: #### NUM #### [facility] ([address] [place] [address] VIRBLOOD/HGB NURTraceAbnormalNegativeProMedica Fostoria Community HospitalComment on above:Performed By: #### NUM #### [facility] ([address] [place] [address] VIRGLUCOSE NURNegativeNormalNegativeProMedica [facility]oria [facility] Hospital Comment on above:Performed By: #### NUM #### [facility] ([address] [place] [address] VIRKETONES NUR40 mg/dLAbnormalNegativeProMedica Fostoria Community HospitalComment on above:Performed By: #### NUM #### [facility] ([address] [place] [address] VIRLEUKOCYTE ESTERASE NURNegativeNormalNegativeProMedica Fostoria Community HospitalComment on above:Performed By: #### NUM #### [facility] ([address] [address] VIRNITRITE NURNegativeNormalNegativeProMedica [facility]oria [facility] Hospital Comment on above:Performed By: #### NUM #### [facility] ([address] [address] VIRPH NUR6.2Jwyhqe4.0, 6.0, 6.5, 7.0, 7.5, 8.0, 8.5, 5.5 [facility] HospitalComment on above:Performed By: #### NUM #### [facility] ([address] [address] VIRPROTEIN JEB486 mg/dLAbnormalNegativeProMedica Fostoria Community HospitalComment on above:Performed By: #### NUM #### [address] [address] VIRSPECIFIC GRAVITY NISREEN>=1.061Llamisiz8.010, 1.015, 1.020, 1.025Pro[facility] HospitalComment on above:Performed By: #### NUM #### [address] [address] VIRUROBILINOGEN NUR0.2 E.U./dLNormalProMedica [facility] Comment on above:Performed By: #### NUM #### [facility] ([address] [address] VIRPOCT , URINE (NUCG)on 07-23-8868Twmw HCG ( test) Ql (U)NegativeNormalNegative, IndeterminateProMedica Fostoria Community HospitalComment on above:Performed By: #### NUCG #### [facility] ([address] [address] VIRPROTIME AND INRon 73-23-3026TDM3.9Jvtsfa1.9-1.2[facility] CampusComment on above:Performed By: #### PINR #### [facility] ([address] [place] [address] VIRPT Coag (PPP) [Time]12.0 sNormal9.8-13.2PMain Campus Medical CenterComment on above:Performed By: #### PINR #### [facility] ([address] [place] [address] VIRBASIC METABOLIC PANELon 09-69-9213Iifye gap [Moles/Vol]7 mmol/LNormal5-15ProHemphill County HospitalComment on above:Performed By: #### BMP #### [facility] ([address] [place] [address] VIRCalcium [Mass/Vol]8.4 mg/dLLow8.5-10.5PMain Campus Medical CenterComment on above:Performed By: #### BMP #### [facility] ([address] [place] [address] VIRChloride [Moles/Vol]105 mmol/ZHguiep61-408CjpAokkjoHemphill County HospitalComment on above:Performed By: #### BMP #### [address] [place] [address] VIRCO2 [Moles/Vol]22 mmol/EFkpiba08-49VyyBotbuyMain Campus Medical CenterComment on above:Performed By: #### BMP #### [facility] ([address] [place] [address] VIRCreatinine [Mass/Vol]0.71 mg/dLNormal0.40-1.00ProHemphill County HospitalComment on above:Result Comment: METHOD TRACEABLE TO IDMS STANDARDPerformed By: #### BMP #### [facility] ([address] [address] VIREGFR (CKD-EPI) NON-RACE DEPENDENT>^90Normal>=60ProHemphill County HospitalComment on above:Result Comment: eGFR not reported due to non- numeric value for Creatinine. Reported eGFR is based on the CKD-EPI 2021 equation that does not use a race coefficient.Performed By: #### BMP #### [facility] ([address] [place] [address] VIRGlucose [Mass/Vol]130 mg/iGJzex00-92SqoEwxcpbHemphill County HospitalComment on above:Performed By: #### BMP #### [facility] ([address] [address] VIRPotassium [Moles/Vol]4.0 mmol/LNormal3.5-5.0[facility] HospitalComment on above:Performed By: #### BMP #### [address] [place] [address] VIRSodium [Moles/Vol]134 mmol/XNbxpaj930-771TadNhomjf [facility] HospitalComment on above:Performed By: #### BMP #### [facility] ([address] [address] VIRUrea nitrogen [Mass/Vol]14 mg/dLNormal5-23ProHemphill County HospitalComment on above:Performed By: #### BMP #### [address] [address] VIRCBC WITH AUTO DIFFERENTIALon 40-78-1262ZEAHAQGCV ABSOLUTE COUNT (10*3/UL) BY AUTOMATED COUNT0.1 10*3/uLNormal0.0-0.2PMain Campus Medical CenterComment on above:Performed By: #### CBCA #### [facility] ([address] [address] VIRBASOPHILS RELATIVE PERCENT BY AUTOMATED COUNT0.7 %Normal [facility] HospitalComment on above:Performed By: #### CBCA #### [facility] [address] [place] [address] VIRCELLAVISION DIFFERENTIAL TYPEAUTOMATED DIFFERENTIALNormal [facility] HospitalComment on above:Performed By: #### CBCA #### [facility] ([address] [place] [address] VIREosinophils (Bld) [#/Vol]0.1 10*3/uLNormal0.0-0.4[facility] HospitalComment on above:Performed By: #### CBCA #### [facility] ([address] [address] VIREOSINOPHILS RELATIVE PERCENT BY AUTOMATED COUNT1.5 %Normal [facility] HospitalComment on above:Performed By: #### CBCA #### [address] [address] VIRErythrocyte distribution width (RBC) [Ratio]13.3 %Normal 11.5-15ProHemphill County HospitalComment on above:Performed By: #### CBCA #### [address] [address] VIRHematocrit (Bld) [Volume fraction]41.1 %Nlwtii23-73 [facility] HospitalComment on above:Performed By: #### CBCA #### [address] [address] VIRHemoglobin (Bld) [Mass/Vol]14.4 g/yZQwwtvg56.7-15.5 [facility] HospitalComment on above:Performed By: #### CBCA #### [address] [address] VIRLYMPHOCYTES ABSOLUTE COUNT (10*3/UL) BY AUTOMATED COUNT2.9 10*3/uLNormal1.0-3.5PMain Campus Medical CenterComment on above:Performed By: #### CBCA #### [facility]) [address] [place] [address] [place] [address] VIRLYMPHOCYTES RELATIVE PERCENT BY AUTOMATED COUNT34.0 %Normal [facility] Community HospitalComselect specialty hospital on above:Performed By: #### CBCA #### [facility] ([address] [place] [address] VIRMCH (RBC) [Entitic mass]30.6 kgTgiowh17-35HtgQdmyxeHemphill County HospitalComment on above:Performed By: #### CBCA #### [facility] ([address] [place] [address] VIRMCHC (RBC) [Mass/Vol]35.0 g/pARfageb24-59WobAuzxbrHemphill County HospitalComment on above:Performed By: #### CBCA #### [facility] ([address] [place] [address] VIRMCV (RBC) [Entitic vol]88 oCDzrrac51-767MaeWfmfvz [facility] HospitalComment on above:Performed By: #### CBCA #### [facility]) [address] [place] [address] [place] [address] VIRMONOCYTES ABSOLUTE COUNT (10*3/UL) BY AUTOMATED COUNT0.7 10*3/uLNormal0.0-0.9[facility] HospitalComselect specialty hospital on above:Performed By: #### CBCA #### [facility]) [address] [place] [address] [place] [address] VIRMONOCYTES RELATIVE PERCENT BY AUTOMATED COUNT8.1 %Normal [facility] HospitalComselect specialty hospital on above:Performed By: #### CBCA #### [facility] ([address] [place] [address] VIRNEUTROPHILS ABSOLUTE COUNT BY AUTOMATED COUNT4.7 10*3/uL Normal1.5-6.6[facility] HospitalComment on above:Performed By: #### CBCA #### [facility] ([address] [place] [address] VIRNEUTROPHILS RELATIVE PERCENT BY AUTOMATED COUNT55.7 %Normal [facility] HospitalComment on above:Performed By: #### CBCA #### [facility] ([address] [place] [address] VIRPlatelet mean volume (Bld) [Entitic vol]8.6 fLNormal7-12 [facility] HospitalComment on above:Performed By: #### CBCA #### [facility] ([address] [place] [address] VIRPlatelets (Bld) [#/Vol]263 10*3/bZEenmzi286-301XsiOfnped [place] CampusComment on above:Performed By: #### CBCA #### [facility] ([address] [place] [address] VIRRBC COUNT4.69 X10E12/LNormal3.8-5.2[facility] CampusComment on above:Performed By: #### CBCA #### [facility] ([address] [place] [address] VIRWBC (Bld) [#/Vol]8.4 10*3/uLNormal4-11ProChillicothe Hospitalca [facility] HospitalComment on above:Performed By: #### CBCA #### [facility] ([address] [place] [address] VIRPOCT NURSING URINE MACROSCOPIC UAon [id number] NISREEN NegativeNormalNegativeClermont County Hospital HospitalComment on above:Performed By: #### NUM #### [facility] ([address] [place] [address] VIRBLOOD/HGB NURTraceAbnormalNegativeProMedica [place] HospitalComment on above:Performed By: #### NUM #### [facility] ([address] [address] VIRGLUCOSE NURNegativeMcCullough-Hyde Memorial Hospital Comment on above:Performed By: #### NUM #### [facility] ([address] [address] VIRKETONES NURNegativeLawtonNegOhioHealth [facility] Comment on above:Performed By: #### NUM #### [facility] ([address] [address] VIRLEUKOCYTE ESTERASE NURNegativeMcCullough-Hyde Memorial HospitalComment on above:Performed By: #### NUM #### [facility] ([address] [address] VIRNITRITE NURNegativeMcCullough-Hyde Memorial Hospital Comment on above:Performed By: #### NUM #### [facility] ([address] [address] VIRPH NUR7.1Yfpnlu4.0, 6.0, 6.5, 7.0, 7.5, 8.0, 8.5, 5.5 [facility]ostoria Community HospitalComment on above:Performed By: #### NUM #### [facility] ([address] [address] VIRPROTEIN NURNegativeMcCullough-Hyde Memorial Hospital Comment on above:Performed By: #### NUM #### [facility] ([address] [address] VIRSPECIFIC GRAVITY NUR1.197Intrmf2.010, 1.015, 1.020, 1.025 [facility] HospitalComment on above:Performed By: #### NUM #### [facility] ([place]) [address] [place] [address] [place] [address] VIRUROBILINOGEN NUR0.2 E.U./dLNoalProMedica Fostoria Community Hospital Comment on above:Performed By: #### NUM #### [facility] [address] [place] [address] [place] [address] VIRPOCT , URINE (NUCG)on 75-19-8946Pnyn HCG ( test) Ql (U)NegativeNormalNegative, IndeterminateProMedica Fostoria Community HospitalComment on above:Performed By: #### NUCG #### [facility] [address] [place] [address] [place] [address] VIRALL CBC WITH AUTO DIFFon 28-02-2663TAUIENDPL ABSOLUTE AUTO 0.1NOMS HealthcareBasophils/100 WBC (Bld)0.9 %0.2 - 2.0 %[facility] Eosinophils/100 WBC (Bld)1.7 %0.9 - 7.0 %[facility]red HospitalErythrocyte distribution width (RBC) [Ratio]12.2 %11.0 - 15.0 %[facility]red HospitalHematocrit (Bld) [Volume fraction]42.8 %36.0 - 48.0 %[facility] HospitalHemoglobin (Bld) [Mass/Vol]14.8 g/dL 12.0 - 16.0 g/dLKindred HospitalIMMATURE GRANULOCYTES ABS AUTO0.04HighNOMissouri Southern HealthcareImmature granulocytes/100 WBC (Bld)0.5 %0.0 - 0.5 %[facility] Interpretation and review of laboratory resultsAbnormUniversal Health Services LYMPHOCYTES ABSOLUTE AUTO2.4NOMS [facility] Hospital - AkronLymphocytes/100 WBC (Bld)27.1 %20.5 - 60.0 %[facility] HealthH (RBC) [Entitic mass]30.6 pg26.7 - 34.0 pgNOMissouri Southern HealthcareMCHC (RBC) [Mass/Vol]34.6 g/dL29.9 - 35.2 g/dLKindred HospitalMCV (RBC) [Entitic vol]88.6 fL81.0 - 99.0 fLNOMissouri Southern HealthcareMONOCYTES ABSOLUTE AUTO0.5NOMS HealthcareMonocytes/100 WBC (Bld)6 %1.7 - 12.0 %NOMS HealthcareNEUTROPHILS ABSOLUTE AUTO5.5NOMS HealthcareNeutrophils/100 WBC (Bld)63.8 %43.0 - 75.0 %NOMS HealthcarePlatelet mean volume (Bld) [Entitic vol]10.8 fL9.5 - 13.5 fLNOMS HealthcareTBH EO #0.2NOMS HealthcareTBH CWE509SASV HealthcareTBH RBC4.83NOMS HealthcareTBH WBC8.7NOMS HealthcareCLINISYNCNOMS HealthcareUS PELVIS W/ TRANSVAGINALon 12-75-9248[place]mM[place] [address] Ultrasound Report Signed Patient: SUNSHINE RYDER MR#: [id number] : 2000 Acct:[id number] Age/Sex: 24 / F ADM Date: 08/27/24 Loc: US Attending Dr: Ramy Gar D.O. Ordering Physician: Ramy Gar D.O. Date of Service: 08/27/24 Procedure(s): US pelvis w/ transvaginal Accession Number(s): [id number] cc: Gaye Dill M.D.; Ramy Gar D.O. The [place] [address] Patient Name: SUNSHINE RYDER MRN: [id number] date: 2000 Sex: F Assigned Patient Location: US Current Patient Location: US Accession/Order Number: [id number] Exam Date: 08/27/2024 23:46 Report Date: 08/27/2024 23:49 At the request of: RAMY GAR DO Procedure: US pelvis w/ transvaginal Transabdominal transvaginal pelvic ultrasound INDICATION: PCOS COMPARISON: None FINDINGS: Anteverted uterus measures 6.5 x 2.6 x 8.1 cm Endometrial thickness 3 mm, normal. Right left ovaries unremarkable size 2.6 x 2.2 x 1.8 cm and 3.3 x 1.8 x 2.8 cm in size respectively. US/US pelvis w/ transvaginal IMPRESSION: Unremarkable/physiologic findings. Impression dictated by: Darnell Sterling M.D. 08/27/2024 11:49 PM Dictation Location: [place] [address] Electronically authenticated by: [id number] Y Date: 08/27/2024 23:49 Dictated By: Darnell Sterling M.D. Signed By: 08/27/24 9626 DD/ 1111 TD/TT: Dental Internship:TBHRadiology, Radiologist, MD - 08/27/2024 [place] [address] Ultrasound Report Signed Patient: SUNSHINE RYDER MR#: [id number] : 2000 Acct:[id number] Age/Sex: 24 / F ADM Date: 08/27/24 Loc: US Attending Dr: Ramy Gar D.O. Ordering Physician: Ramy Gar D.O. Date of Service: 08/27/24 Procedure(s): US pelvis w/ transvaginal Accession Number(s): [id number] cc: Gaye Dill M.D.; Ramy Gar D.O. The [place] [id number] Patient Name: SUNSHINE RYDER MRN: [id number] date: 2000 Sex: F Assigned Patient Location: Current Patient Location: US Accession/Order Number: [id number] Exam Date: 08/27/2024 23:46 Report Date: 08/27/2024 23:49 At the request of: RAMY GAR DO Procedure: US pelvis w/ transvaginal Transabdominal transvaginal pelvic ultrasound INDICATION: PCOS COMPARISON: None FINDINGS: Anteverted uterus measures 6.5 x 2.6 x 8.1 cm Endometrial thickness 3 mm, normal. Right left ovaries unremarkable size 2.6 x 2.2 x 1.8 cm and 3.3 x 1.8 x 2.8 cm in size respectively. US/US pelvis w/ transvaginal IMPRESSION: Unremarkable/physiologic findings. Impression dictated by: Darnell Sterling M.D. 08/27/2024 11:49 PM Dictation Location: [place] [address] Electronically authenticated by: [id number] Y Date: 08/27/2024 23:49 Dictated By: Darnell Sterling M.D. Signed By: 08/27/24 8250 DD/ 130 TD/TT: Dental Internship: DAMIEN HealthcareRadiology Study observation (narrative)NOMS HealthcareUS PELVIS W/ TRANSVAGINALOrdered By: Radiologist Radiology on 88-56-7704JZNA Healthcare Work Phone: tbh PROLACTINon 59-32-3907JPKJMXOCB1.9 ng/mL4.8 - 33.4 ng/mLNOMS HealthcareComment on above:Performed at: [place] [id number] Yarn Conditioner: Walter Gilliland PhD, Phone: [phone] CLINISYNCNOAL HealthcareHCG ( test) Ql (U)on 04-30-6172Exylfuctrzfvqd and review of laboratory resultsNormalNOAL HealthcarePreg Test, UrNegative NegativeNOAL HealthcareNOMS HealthcareUrinalysis macro (dipstick) panel (U)on 93-59-2235Fzwyqmfis, UAPositiveNegative - 4(70) +++ mg/dLNOMS HealthcareComment on above:smallBlood, UAPositiveNegative - 50 Mo/mcLNOMS HealthcareComment on above:traceClarity, UAClearNOMS HealthcareColor, UAYellowNOMS HealthcareGlucose, UANegativeNegative - 2000(110) ++++ mg/dLNOMS HealthcareInterpretation and review of laboratory resultsAbnormalNOMS HealthcareKetones, UAPositiveNegative - 160(16) ++++ mg/dLNOMS HealthcareComment on above:traceLeukocytes, UANegative Negative - 500+++ Mitchell/mcLNOMS HealthcareNitrite, UANegativeNegative - Positive NOMS HealthcarepH, UA65 - 9NOMS HealthcareProtein, UAPositiveNegative - 2000(20) ++++ mg/dLNOMS HealthcareComment on above:30Spec Grav, UA1.0251 - 1.03NOMS HealthcareUrobilinogen, UA0.20.2 - 12 mg/dLNOMS HealthcareNOMS HealthcareHCG ( test) Ql (U)on 95-70-9241Yiyh HCG ( test) Ql (U)Negative NormalNEGProChillicothe Hospitalca Herndon HospitalComment on above:Performed By: #### [id number] #### [facility] ([id number]) [address] [place] [address], [place] [address]UUF MACROSCOPIC NURon 83-64-3012IORXXELIY NURNegativeNormalNEG [facility]atos CampusComment on above:Performed By: #### NUM #### [facility] ([id number]) [address] [place] [address], [place] [address]NOHCL/HGB NURSmallAbnormalNEGProChillicothe Hospitalca Los Gatos CampusComment on above:Performed By: #### NUM #### [facility] ([id number]) [address] [place] [address], [place] [address]OSCTMOY NURNegativeNormalNEGProHemphill County HospitalComment on above:Performed By: #### NUM #### [facility] ([id number]) [address] [place] [address], [place] [address]RWAYMNX NURNegativeNormalNEGProChillicothe Hospitalca Los Gatos CampusComment on above:Performed By: #### NUM #### [facility] ([id number]) [address] [place] [address], [place] [address]KNLNHVQBQ ESTERASE NURNegativeNormalNEGProHemphill County HospitalComment on above:Performed By: #### NUM #### [facility] ([id number]) [address] [place] [address], [place] [address]SYSYWGX NURNegativeNormalNEGProHemphill County HospitalComment on above:Performed By: #### NUM #### [facility] ([id number]) [address] [place] [address], [place] [address]AK NUR5.8Xblixs6.0-8.5PMain Campus Medical CenterComment on above:Performed By: #### NUM #### [facility] ([id number]) [address] [place] [address] [place] [address]EJBVBBT NURNegativeNormalNEGProHemphill County HospitalComment on above:Performed By: #### NUM #### [facility] ([id number]) [address] [place] [address], [facility] [place] [address]GAUIRQTD GRAVITY NUR1.602Mepbrd1.003-1.035ProHemphill County HospitalComment on above:Performed By: #### NUM #### [facility] ([id number]) [address] [place] [address]BZHAZTJSONMG NUR0.2 eu/dLNormal<1.1PMain Campus Medical Center Comment on above:Performed By: #### NUM #### [facility] ([id number]) [address] [place] [address] [place] [address]MVIOLFBUIlbzivn By: Clara Tuttle on 33-26-3704URS.beta subunit (U) [Moles/Vol]NegativeNormalHILLCREST [facility] Man SeroOffice Visiton 05-28-2023 Follow-up [id number] Sunshine Ryder 2000 Date Provider Department Center 05/28/2023 3848-[facility] Family History Problem Relation Age of Onset Hypertension Mother Heart attack Maternal Grandmother Heart attack Maternal Grandfather Stroke Maternal Grandfather Family Status - Relation Status Age at Mother Maternal Grandmother Maternal Grandfather Level of Service:65958 [place] OFFICE/OUTPATIENT ESTABLISHED MOD MDM 30 MIN Reason for Visit and Comments: Follow-up [920344] - Last saw Camilo in 2021NormalUniversity University Hospitals Health SystemOrders Onlyon 15-15-7472Xbpkdw [id number] Sunshine Rdyer 2000 F Date Provider Department Center 05/28/2023 Vic5-APRIL PARNELL CARD [facility] Family History Problem Relation Age of Onset Hypertension Mother Heart attack Maternal Grandmother Heart attack Maternal Grandfather Stroke Maternal Grandfather Family Status - Relation Status Age at Mother Maternal Grandmother Maternal GrandfatherNormalThe Bellevue HospitalCHEMISTRYOrdered By: SYSTEM SYSTEM on 66-80-1848Bohpy gap [Moles/Vol]13 mmol/LNormal6 - 16 mEq/L Remisol ChemCalcium [Mass/Vol]9.2 mg/dLNormal8.9 - 11.1 mg/dLRemisol Chem Chloride [Moles/Vol]109 mmol/ZZswmsm781 - 111 mmol/LRemisol ChemCO2 [Moles/Vol] 19 mmol/LLow21 - 31 mmol/LRemisol ChemCreatinine [Mass/Vol]0.9 mg/dLNormal0.5 - 1.3 mg/dLRemisol BntvoEPG58 mL/min/1.73 q7Hnvlxi>=59mL/min/1.73 i7Dfnhslc Chem Glucose [Mass/Vol]114 mg/hTEgkvww62 - 199 mg/dLRemisol ChemPotassium [Moles/Vol] 4.0 mmol/LNormal3.5 - 5.3 mmol/LRemisol ChemSodium [Moles/Vol]137 mmol/LNormal 135 - 145 mmol/LRemisol ChemUrea nitrogen [Mass/Vol]16 mg/dLNormal5 - 21 mg/dL Remisol ChemUrea nitrogen/Creatinine [Mass ratio]18 mg/irBohjmh31 - 20Remisol ChemCOAGULATIONOrdered By: Mike Herron on 45-68-7540cIYV Coag (PPP) [Time]33.6 s Mkjvuu64.1 - 36.5 second(s)[facility] Auto CoagComment on above:Interpretive Data: Parameter 15 days - 4 weeks 1 - [...] coagulation reagent and instrumentation as [facility]. Currently there are no coagulation studies available worldwide for children to 14 days, andno normal ranges. Heparin therapeutic range (represented by Anti-Factor Xa activity of 0.2 - 0.4 U/mL) corresponds to PTT of 56.6 - 109.0 sec.INR Coag (PPP) [Relative time]1.08 {INR}Invalid Interpretation CodeHILLCREST HOSPITAL CLAREM[facility] – [facility] Auto CoagComment on above:Interpretive Data: INR results are specifically intended to assess patients stabilized on long-term Anticoagulation therapy suggested INR s Less Intensive Anticoagulation 2.0 3.0 Conventional Range 3.0 4.5PT Coag (PPP) [Time]12.1 sNormal9.4 - 12.5 second(s) [facility] Auto CoagComment on above:Interpretive Data: 15 days - 4 weeks 1 - [...] coagulation reagent and instrumentation as [facility]. Currently there are no coagulation studies available worldwide for children to 14 days, andno normal ranges.HEMATOLOGYOrdered By: SYSTEM SYSTEM on 25-50-0326Idblexfzi/100 WBC (Bld)1.0 %Normal0.0 - 2.0 %Remisol HemeBasophils/Leukocytes Auto (Bld) [Pure # fraction]0.1 E9/LNormal0.0 - 0.2 E9/LRemisol HemeEosinophils (Bld) [#/Vol]0.3 E9/LNormal0.0 - 0.5 E9/LRemisol HemeEosinophils/100 WBC (Bld)2.2 %Normal0.0 - 8.0 %Remisol HemeErythrocyte distribution width (RBC) [Ratio]13.1 %Tvgypw43.9 - 14.2 %Remisol HemeHematocrit (Bld) [Volume fraction]41.5 %Carati23.0 - 46.0 % Remisol HemeHemoglobin (Bld) [Mass/Vol]14.0 g/fQObeiqf76.0 - 16.0 gm/dLRemisol HemeLymphocytes (Bld) [#/Vol]2.4 E9/LNormal1.0 - 4.0 E9/LRemisol Heme Lymphocytes/100 WBC (Bld)20.0 %Afbitw03.0 - 50.0 %Remisol HemeMCH (RBC) [Entitic mass]30.2 mqZirxxz23.0 - 34.0 pgRemisol HemeMCHC (RBC) [Mass/Vol]33.9 g/dL Iiqsmt90.4 - 36.0 gm/dLRemisol HemeMCV (RBC) [Entitic vol]89.1 vYHncslo23.0 - 100.0 fLRemisol HemeMonocytes (Bld) [#/Vol]0.8 E9/LNormal0.2 - 1.0 E9/LRemisol HemeMonocytes/100 WBC (Bld)6.6 %Normal4.0 - 14.0 %Remisol HemeNeutrophils (Bld) [#/Vol]8.3 E9/LHigh2.0 - 7.5 E9/LRemisol HemeNeutrophils/100 WBC (Bld)70.2 % Qjojvv32.0 - 75.0 %Remisol HemePlatelet mean volume (Bld) [Entitic vol]8.8 fL Normal6.4 - 10.8 fLRemisol HemePlatelets (Bld) [#/Vol]259.0 E9/IIbylnz913.0 - 500.0 E9/LRemisol HemeRBC (Bld) [#/Vol]4.7 E12/LNormal4.3 - 5.9 E12/LRemisol HemeWBC corrected for nucl RBC Auto (Bld) [#/Vol]11.7 E9/LHigh4.0 - 11.0 E9/L Remisol HemeSEROLOGYOrdered By: Mike Herron on 56-05-6964UPL.beta subunit (U) [Moles/Vol]NegativeNormalFTMC Man SeroURINALYSISOrdered By: SYSTEM SYSTEM on 04-79-3407Ijilj (U)Light-[place] 1 *ABN* (05/20/23 11:54 AM)Invalid Interpretation CodeYellowFTMC UA Auto SSComment on above:Interpretive Data: Microscopic readings are only performed on those samples that meet specific criteria set forth by [facility].Glucose (U) [Mass/Vol]NegativeNormalNegativemg/dLFT UA Auto SS Ketones Ql (U)NegativeNormalNegativemg/dLFT UA Auto SSUA BacteriaTrace graded/HPFNormalTracegraded/HPFFT UA Auto SSUA Blood3+ mg/dLInvalid Interpretation CodeNegativemg/dLFT UA Auto SSUA ClarityTurbid *ABN* (05/20/23 11:54 AM)Invalid Interpretation CodeClearFTMC UA Auto SSUA Leuk Cva165 Mitchell/uL Mitchell/uLInvalid Interpretation CodeNegativeLeu/uLFTMC UA Auto SSUA Mucous1+ graded/LPFInvalid Interpretation CodeNegativegraded/LPFFTMC UA Auto SSUA NitriteNegativeNormalNegativemg/dLFT UA Auto SSUA pH6.0 *NA* (05/20/23 11:54 AM)Invalid Interpretation Code5.0 - 9.0FTMC UA Auto SSUA Protein1+ mg/dLInvalid Interpretation CodeNegativemg/dLFTMC UA Auto SSUA RBC>75 graded/HPFInvalid Interpretation Code0-3graded/HPFFTMC UA Auto SSUA Spec Grav 1.015 *NA* (05/20/23 11:54 AM)Invalid Interpretation Code1.005 - 1.030FTMC UA Auto SSUA Squam Epithelial0-2 graded/HPFNormal0-2graded/HPFFT UA Auto SSUA Urobilinogen NegativeNormalNegativemg/dLFT UA Auto SSUA WBC6-15 graded/HPFInvalid Interpretation Code0-5graded/HPFFTMC UA Auto SSUrobilinogen (U) [Mass/Vol] NegativeNormalNegativemg/dLHILLCREST HOS[facility]ITAL [facility] UA Auto SSURINALYSISOrdered By: Yuridia Ovalle on 29-94-4894JI Spec DescClean Catch (05/20/23 11:54 AM)NormalHILLCREST HOSPITAL [facility] UA Auto SSSEROLOGYOrdered By: Juliane Mcdonnell on 28-29-5707MBS.beta subunit (U) [Moles/Vol]NegativeNormalHILLCREST HOSPITAL [facility] Man SeroCHEMISTRY Ordered By: SYSTEM SYSTEM on 77-64-7851Mbrky gap [Moles/Vol]11 mmol/LNormal6 - 16 mEq/LRemisol ChemCalcium [Mass/Vol]8.6 mg/dLLow8.9 - 11.1 mg/dLRemisol Chem Chloride [Moles/Vol]107 mmol/GRmpxap456 - 111 mmol/LRemisol ChemCO2 [Moles/Vol] 22 mmol/WWmwmpl20 - 31 mmol/LRemisol ChemCreatinine [Mass/Vol]0.8 mg/dLNormal0.5 - 1.3 mg/dLRemisol CjgkcVUT495 mL/min/1.73 u4Tzcyzx>=59mL/min/1.73 q7Uwhxsuu ChemGlucose [Mass/Vol]105 mg/pSDpieyq15 - 199 mg/dLRemisol ChemPotassium [Moles/Vol]3.9 mmol/LNormal3.5 - 5.3 mmol/LRemisol ChemSodium [Moles/Vol]136 mmol/RCcfted222 - 145 mmol/LRemisol ChemUrea nitrogen [Mass/Vol]15 mg/dLNormal5 - 21 mg/dLRemisol ChemUrea nitrogen/Creatinine [Mass ratio]19 mg/fqFjssve04 - 20 Remisol ChemCOAGULATIONOrdered By: Merary Reyna on 55-01-2150tJRG Coag (PPP) [Time]33.2 qJtkmdu03.1 - 36.5 second(s)[facility] Auto CoagComment on above: Interpretive Data: Parameter 15 days - 4 weeks 1 - [...] coagulation reagent and instrumentation as [facility]. Currently there are no coagulation studies available worldwide for children to 14 days, andno normal ranges. Heparin therapeutic range (represented by Anti-Factor Xa activity of 0.2 - 0.4 U/mL) corresponds to PTT of 56.6 - 109.0 sec.INR Coag (PPP) [Relative time]1.1 {INR}Invalid Interpretation CodeHILLCREST HOSPITAL [facility] Auto CoagComment on above:Interpretive Data: INR results are specifically intended to assess patients stabilized on long-term Anticoagulation therapy suggested INR s Less Intensive Anticoagulation 2.0 3.0 Conventional Range 3.0 4.5PT Coag (PPP) [Time]12.0 sNormal9.4 - 12.5 second(s) [facility] Auto CoagComment on above:Interpretive Data: 15 days - 4 weeks 1 - [...] coagulation reagent and instrumentation as [facility]. Currently there are no coagulation studies available worldwide for children to 14 days, andno normal ranges.HEMATOLOGYOrdered By: SYSTEM SYSTEM on 40-35-1170Lshdjksm Absolute 0.0 E9/LNormal0.0 - 0.2 E9/LRemisol HemeBasophils/100 WBC (Bld)0.8 %Normal0.0 - 2.0 %Remisol HemeEos Absolute0.1 E9/LNormal0.0 - 0.5 E9/LRemisol Heme Eosinophils/100 WBC (Bld)1.7 %Normal0.0 - 8.0 %Remisol HemeErythrocyte distribution width (RBC) [Ratio]13.0 %Npyesh97.9 - 14.2 %Remisol HemeHematocrit (Bld) [Volume fraction]39.0 %Jvuuaq39.0 - 46.0 %Remisol HemeHemoglobin (Bld) [Mass/Vol]13.2 g/hFQwdhgr61.0 - 16.0 gm/dLRemisol HemeLymph Absolute1.9 E9/L Normal1.0 - 4.0 E9/LRemisol HemeLymphocytes/100 WBC (Bld)32.6 %Mjlbpt88.0 - 50.0 %Remisol HemeMCH (RBC) [Entitic mass]30.1 scGuokie23.0 - 34.0 pgRemisol Heme MCHC (RBC) [Mass/Vol]33.9 g/kGRyoizh46.4 - 36.0 gm/dLRemisol HemeMCV (RBC) [Entitic vol]89.0 sYUyrskq89.0 - 100.0 fLRemisol HemeMono Absolute0.6 E9/LNormal 0.2 - 1.0 E9/LRemisol HemeMonocytes/100 WBC (Bld)10.3 %Normal4.0 - 14.0 %Remisol HemeNeutro Absolute3.1 E9/LNormal2.0 - 7.5 E9/LRemisol HemeNeutro Auto54.6 % Njrknu60.0 - 75.0 %Remisol NjxhPidombxk895.0 E9/NOgirab454.0 - 500.0 E9/LRemisol HemePlatelet mean volume (Bld) [Entitic vol]9.5 fLNormal6.4 - 10.8 fLRemisol HemeRBC4.4 E12/LNormal4.3 - 5.9 E12/LRemisol HemeWBC5.7 E9/LNormal4.0 - 11.0 E9/LRemisol HemeURINALYSISOrdered By: Merary Reyna on 01-52-1636Ldksdrra LM Ql (Urine sed)Trace /HPFNormalTrace/HPFFTMC UA Auto SSBilirubin Ql (U)Negative (03/29/23 11:01 AM)NormalNegativeHILLCREST [facility] UA Auto SSClarity (U)Clear (03/29/23 11:01 AM)NormalClearFMERCY HEALTH LOVE [facility] – [facility] UA Auto SSColor (U)Yellow (03/29/23 11:01 AM)NormalYellowHILLCREST HOSPITAL [facility] UA Auto SSEpithelial cells.squamous LM.HPF (Urine sed) [#/Area]5-8 /HPFNormal0-2/HPFHILLCREST HOSPITAL [facility] UA Auto SSGlucose Test strip (U) [Mass/Vol]Negative (03/29/23 11:01 AM)NormalNegativeHILLCREST [facility]OSPITAL [facility] UA Auto SSHemoglobin Ql (U)Trace *ABN* (03/29/23 11:01 AM)Invalid Interpretation CodeNegativeHILLCREST HOSPITAL [facility] UA Auto SSKetones (U) [Mass/Vol]Negative (03/29/23 11:01 AM)NormalNegativeHILLCREST HOSPITAL [facility] UA Auto SSLithium.plasma/[place].RBC (Bld) [Mass ratio]4-20 /HPFNormal0-3/HPFHILLCREST HOSPITAL [facility] UA Auto SSNitrite Ql (U)Negative (03/29/23 11:01 AM)NormalNegativeHILLCREST HOSPITAL [facility] UA Auto SSpH (U)6.5 *NA* (03/29/23 11:01 AM)Invalid Interpretation Code5.0 - 9.0[facility] UA Auto SSProtein (U) [Mass/Vol]Negative (03/29/23 11:01 AM)NormalNegativeHILLCREST HOSPITAL [facility] UA Auto SSSpecific gravity (U) [Rel density] 1.010 *NA* (03/29/23 11:01 AM)Invalid Interpretation Code1.005 - 1.030[facility] UA Auto SSUA Spec DescClean Catch (03/29/23 11:01 AM)NormalHILLCREST HOSPITAL [facility] UA Auto SSUrobilinogen Qn (U)0.3463546 {Kellee'U}/dLNormal0.0 - 1.0 EU/dLHILLCREST HOSPITAL [facility] UA Auto SSWBC Auto Ql (U)Negative (03/29/23 11:01 AM)NormalNegativeHILLCREST [facility]OS[facility]ITAL [facility] UA Auto SSWBC LM.HPF (Urine sed) [#/Area]0-5 /HPFNormal0-5/HPFHILLCREST HOSPITAL [facility] UA Auto SSPREG QUANT HCGon 08-76-3460RVM QUANT<1NormalThe Toledo HospitalComment on above:Performed By: #### PREGQNT #### [facility] [address] [place] [address] Vincent HospitalComment on above: Result Comment: 5-50 0.2-1 WEEK 50-500 1-2 WEEKS 100-5,000 2-3 WEEKS 500-10,000 3-4 WEEKS 1,000-50,000 4-5 WEEKS 10,000-100,000 5-6 WEEKS 15,000-200,000 6-8 WEEKS 10,000-100,000 2-3 MONTHSPerformed By: #### PREGQNT #### [facility] [address] [place] [address] Dr. Michael Banegas AUTO DIFFon 01-50-5974OMTK #0.1 103/ulNormal0.0-0.1Twin City HospitalComment on above:Performed By: #### CBC #### [facility] [address] [place] [address] Dr. Michael Stovallsophils/100 WBC (Bld)0.5 %Normal0.2-2.0[facility] Comment on above:Performed By: #### CBC #### [facility] [address] [place] [address] Dr. Michael Chavez #0.1 103/ulNormal0.0-0.7The [facility]edo HospitalComment on above: Performed By: #### CBC #### [facility] [address] [place] [address] Dr. Michael Piedraosinophils/100 WBC (Bld)1.3 %Normal0.9-7.0[facility] Comment on above:Performed By: #### CBC #### [facility] [address] [place] [address] Dr. Michael Piedrarythrocyte distribution width (RBC) [Ratio]12.5 %Nuehpb51.0-15.0 The [facility] HospitalComment on above:Performed By: #### CBC #### [facility] [address] [place] [address] Dr. Michael VigilHematocrit (Bld) [Volume fraction]43.9 %Zgeydn56.0-48.0[facility]Comment on above:Performed By: #### CBC #### [facility] [address] [place] [address] Dr. Michael VigilHemoglobin (Bld) [Mass/Vol]14.7 g/lCNjbmcs96.0-16.0[facility]Comment on above:Performed By: #### CBC #### [facility] [address] [place] [address] Dr. Michael Campbell #0.03 10e3/ulNormal0.00-0.03[facility]Comment on above:Performed By: #### CBC #### [facility] [address] [place] [address] Dr. Michael Campbell %0.3 %Normal0.0-0.5[facility] HospitalComment on above: Performed By: #### CBC #### [facility] [address] [place] [address] Dr. Michael Skaggs #3.0 103/ulNormal1.2-3.8[facility]Com[facility] on above:Performed By: #### CBC #### [facility] [address] [place] [address] Dr. Michael Gasparmphocytes/100 WBC (Bld)32.0 %Nmucel99.5-60.0[facility] HospitalComment on above:Performed By: #### CBC #### [facility] [address] [place] [address] Dr. Michael RosalesUAL DIFF REQNONormalThe [facility] HospitalComment on above: Performed By: #### CBC #### [facility] [address] [place] [address] Dr. Michael Magallon (RBC) [Entitic mass]30.2 zmBarkld66.7-34.0[facility] HospitalComment on above:Performed By: #### CBC #### [facility] [address] [address] [address] Michael CastilloHC (RBC) [Mass/Vol]33.5 g/fTXtfizw22.9-35.2[facility] HospitalComment on above:Performed By: #### CBC #### [facility] [address] [place] [address] Dr. Michael CastilloV (RBC) [Entitic vol]90.1 yQSfwilz44.0-99.0[facility] HospitalComment on above:Performed By: #### CBC #### [facility] [address] [place] [address] Dr. Michael Kaur #0.7 103/ulNormal0.3-0.8[facility] HospitalComment on above:Performed By: #### CBC #### [facility] [address] [place] [address] Dr. Michael Duenasocytes/100 WBC (Bld)7.8 %Normal1.7-12.0[facility] Comment on above:Performed By: #### CBC #### [facility] [address] [place] [address] Dr. Michael Mckeon #5.3 103/ulNormal1.4-6.5The [facility] HospitalComment on above:Performed By: #### CBC #### [facility] [address] [place] [address] Dr. Michael Chadwickutrophils/100 WBC (Bld)58.1 %Skmdai27.0-75.0The [facility] HospitalComment on above:Performed By: #### CBC #### [facility] [address] [place] [address] Dr. Michael Biggslet mean volume (Bld) [Entitic vol]10.3 fLNormal9.5-13.5The [facility] HospitalComment on above:Performed By: #### CBC #### [facility] [address] [place] [address] Dr. Michael VigilPLT292 103/znNoyvrh139-882Xpr [facility] HospitalComment on above: Performed By: #### CBC #### [facility] [address] [place] [address] Dr. Michael VigilRBC4.87 106/ulNormal4.20-5.40The [facility] HospitalComment on above:Performed By: #### CBC #### [facility] [address] [place] [address] Dr. Michael VigilWBC9.2 103/ulNormal4.0-11.0The [facility] HospitalComment on above: Performed By: #### CBC #### [facility] [address] [place] [address] Dr. Michael Julian CHEM 8 (BAS METB)on 23-14-8957Zqbxd gap [Moles/Vol]12.3 mmol/LNormalThe [facility]edo HospitalComment on above:Performed By: #### BMP #### [facility] [address] [place] [address] Dr. Michael VigilCalcium [Mass/Vol]9.1 mg/dLNormal8.5-10.1[facility] Comment on above:Performed By: #### BMP #### [facility] [address] [place] [address] Dr. Michael VigilChloride [Moles/Vol]106 mmol/KXkjbcg99-370Gtm [facility] Comment on above:Performed By: #### BMP #### [facility] [address] [place] [address] Dr. Michael VigilCO2 [Moles/Vol]26.0 mmol/WBmikvl67.0-32.0[facility] Comment on above:Performed By: #### BMP #### [facility] [address] [place] [address] Dr. Michael VigilCreatinine [Mass/Vol]0.97 mg/dLNormal0.55-1.02The [facility] HospitalComment on above:Performed By: #### BMP #### [facility] [address] [place] [address] Dr. Rodriguez ChangEGFR-AF MACEDONIAN>60Normal>=60The [facility] HospitalComment on above:Performed By: #### BMP #### [facility] [address] [address] [address] Michael PiedraGFR-NON AF MACEDONIAN>60Normal>=60The [facility] HospitalComment on above:Performed By: #### BMP #### [facility] [address] [address] [address] Michael VigilGlucose [Mass/Vol]96 mg/gTDchvhm94-698QhmTwin City Hospital Comment on above:Performed By: #### BMP #### [facility] [address] [address] [address] Michael VigilPotassium [Moles/Vol]4.3 mmol/LNormal3.5-5.1[facility] Comment on above:Performed By: #### BMP #### [facility] [address] [address] [address] Michael VigilSodium [Moles/Vol]140 mmol/IXjkgvu955-481ZqvTwin City Hospital Comment on above:Performed By: #### BMP #### [facility] [address] [address] [address] Michael VigilUrea nitrogen [Mass/Vol]18.0 mg/dLNormal6.4-19.3TBluffton HospitalComment on above:Performed By: #### BMP #### [facility] [address] [address] [address] Michael VigilUrea nitrogen/Creatinine [Mass ratio]18.6 mg/mgNormalThe [facility]edo HospitalComment on above:Performed By: #### BMP #### [facility] [address] [address] [address] Michael Styles [employer]on 30-93-7278UgqjnkAqsnbnqvEogibPaypersocial Ltd Other [employer] 02-09-2021. pyogenes Org specific cx Ql (Throat)[employer] Other [employer] Other Vital Signs Date TimeVital SignValuePerforming DjcdqijxmZhlombmn86-82-1845 14:34-0400Body yvqble471 cmCorey Cong DO Work Phone: 1(279)[facility] [place], [place] [address]Jpvpoolhay87-70-1964 14:34-0400Body mass index (BMI) [Ratio]39.86 kg/c4Uuahe Cong DO Work Phone: [phone])[facility]-[address] [place], [place] [address]Tbpoapdttn69-91-7326 14:34-0400Body ngkhxy884.06 kgCorey Cong DO Work Phone: 1(419)[facility]-[address] [place], [place] [address]Lxfgbrfamz05-76-4678 14:34-0400Diastolic blood evhlhumn98 mm[Hg]Ramy Cong DO Work Phone: 1(589)[facility]-[address] [place], [place] [address]Ckxyxavoow95-37-9633 14:34-0400Systolic blood rhdwgipn050 mm[Hg]Ramy Cong DO Work Phone: 1(338)[facility] [place], [place] [address]Raulxxamms34-41-5585 14:18-0400Body jlzqef374 cm Ramy Cong DO Work Phone: 1(419)[facility] [place], [place] [address]Peqvvzcwsk11-43-6357 14:18-0400Body mass index (BMI) [Ratio]40.57 kg/y7Ihgau Cong DO Work Phone: [phone])[facility]-[address] [place], [place] [address]Msnivpzmlz51-33-3666 14:18-0400Body ascmva640.87 kgCorey Cong DO Work Phone: 1(840)[facility] [place], [place] [address]Zijyatvqoy25-23-4365 14:18-0400Diastolic blood jizjxpcf290 mm[Hg]Ramy Cong DO Work Phone: 1(015)[facility] [place], [place] [address]Ihaezlqvwv34-26-6266 14:18-0400Systolic blood wobrggzi675 mm[Hg]Ramy Cong DO Work Phone: 1(887)[facility] [place], [place] [address]Lvzcqywipw42-91-1643 11:25-0400Body mass index (BMI) [Ratio]40.57 kg/a4Znugg Cong DO Work Phone: 1(295)[facility] [place], [place] [address]Dknncttenx16-09-5638 11:25-0400Body mejrkf982.87 kgCorey Cong DO Work Phone: [facility] HospitalSoiarncbyd64-04-5523 11:25-0400Diastolic blood wjsdvzuh793 mm[Hg]Ramy Cong DO Work Phone: [facility] HospitalBeeywrjcre30-84-1385 11:25-0400Systolic blood ypjzfqbg407 mm[Hg]Ramy Cong DO Work Phone: [facility] HospitalMonvqatujm65-09-9589 11:36-0400Body fsxxku798 cm Ramy Cong DO Work Phone: [facility] HospitalUsyeobfsmf47-27-3071 11:36-0400Body mass index (BMI) [Ratio]39.33 kg/x6Xihcs Cong DO Work Phone: [facility] HospitalSjtobntjre81-94-9078 11:36-0400Body ufoobz807.7 kgFingoorooy Cong DO Work Phone: [facility] HospitalIjptpnpbdf77-87-4486 11:36-0400Diastolic blood wnbjihhb32 mm[Hg]Ramy Cong DO Work Phone: [facility] HospitalRmvnfzvqoa43-77-0123 11:36-0400Systolic blood mm[Hg]Ramy Cong DO Work Phone: [facility] HospitalOthkbceooe38-22-5044 10:06-0500Body eydukd716.02 [facility]01-17-2025 10:06-0500Body mass index (BMI) [Ratio]39.8 kg/w4LkkymryfzAcmc Healthcare [facility]01-17-2025 10:06-0500Body hguzev150.05 kgAcmc Healthcare System01-17-2025 10:06-0500Diastolic blood wemxgyag925 mm[Hg][facility]01-17-2025 10:06-0500 Heart rate68 /minAcmc Healthcare System01-17-2025 10:06-0500Systolic blood mm[Hg][facility]10-25-2024 08:58-0400 Body qtewdc561.02 cmAcmc Healthcare System10-25-2024 08:58-0400Body mass index (BMI) [Ratio]36.8 kg/e6QswrqelrlAcmc Healthcare System10-25-2024 08:58-0400Body vwurknvbfdy47.9 [degF][facility]10-25-2024 08:58-0400Body ulckwo08.34 kgAcmc Healthcare System10-25-2024 08:58-0400Diastolic blood icqxerws09 mm[Hg][facility] 12-13-2023 08:58-0400Heart rate75 /minAcmc Healthcare System 12-13-2023 08:58-2546MhL4% (BldA) [Mass fraction]98 %[facility]10-25-2024 08:58-0400Systolic blood hegjronu168 mm[Hg][facility]09-26-2024 11:37-0400Body iaaqiv749.02 cmAcmc Healthcare System09-26-2024 11:37-0400Body mass index (BMI) [Ratio]36.3 kg/m2 [facility]09-26-2024 11:37-0400Body palvnj79.98 kg [facility]09-26-2024 11:37-0400Diastolic blood jsgolegb81 mm[Hg][facility]09-26-2024 11:37-0400Heart rate97 /min [facility]09-26-2024 11:37-0400Systolic blood egrzifba289 mm[Hg][facility]05-29-2024 11:53-0400Body gtyczq384.02 cmAcmc Healthcare System05-29-2024 11:53-0400Body mass index (BMI) [Ratio]34.2 kg/m6WtasqrsshAcmc Healthcare System05-29-2024 11:53-0400Body ommlpg17.54 kgAcmc Healthcare System05-29-2024 11:53-0400Diastolic blood iaidokxf932 mm[Hg][facility]05-29-2024 11:53-0400 Heart rate83 /[facility]05-29-2024 11:53-0400Systolic blood yvwxzzxv074 mm[Hg][facility]04-25-2024 13:50-0400 Blood Pressure LocationPerry ESCOBAR [facility]04-25-2024 13:50-0400Body rjgpapdrfgb63.7 [degF]Perry ESCOBAR [facility]04-25-2024 13:50-0400 Diastolic blood mdeyamii900 mm[Hg]Perry ESCOBAR [facility]04-25-2024 13:50-0400Heart rate60 /minPerry ESCOBAR [facility]04-25-2024 13:50-0400Mean blood iqtsyaxo315 mm[Hg]Perry ESCOBAR [facility]04-25-2024 13:50-0400 Respiratory rate20 /minPerry ESCOBAR [facility]04-25-2024 13:50-2141JbH0% (BldA) [Mass fraction]98 %Perry ESCOBAR [facility]04-25-2024 13:50-0400 Systolic blood wxqpkzas219 mm[Hg]Perry ESCOBAR [facility]04-25-2024 12:45-0400Blood Pressure LocationPerry ESCOBAR [facility]04-25-2024 12:45-0400Body oukvouucvty54.7 [degF]Perry ESCOBAR [facility]04-25-2024 12:45-0400 Diastolic blood jomgheop38 mm[Hg]Perry ESCOBAR [facility]04-25-2024 12:45-0400 Diastolic blood yekmsnsv634 mm[Hg]Perry ESCOBAR [facility]04-25-2024 12:45-0400Heart rate73 /minPerry ESCOBAR [facility]04-25-2024 12:45-0400Heart rate70 /minPerry ESCOBAR [facility]04-25-2024 12:45-0400Mean blood pjnwzycv065 mm[Hg]Perry ESCOBAR [facility]04-25-2024 12:45-0400Mean blood jsmflbat244 mm[Hg]Perry ESCOBAR [facility]04-25-2024 12:45-0400 Respiratory rate18 /minPerry ESCOBAR [facility]04-25-2024 12:45-0400 Respiratory rate16 /minPerry ESCOBAR [facility]04-25-2024 12:45-8698JdC8% (BldA) [Mass fraction]97 %Perry ESCOBAR [facility]04-25-2024 12:45-0400 Systolic blood jxrgqgcy757 mm[Hg]Perry ESCOBAR [facility]04-25-2024 12:45-0400 Systolic blood ohsntdlj151 mm[Hg][facility]ry ESCOBAR [facility]04-25-2024 12:30-0400 Respiratory rate14 /minPerry ESCOBAR [facility]04-25-2024 12:17-0400Body amvtzbeyrxt04.98 [degF][facility]ry ESCOBAR [facility]04-25-2024 12:10-0400 Respiratory rate15 /minPerry ESCOBAR [facility]04-25-2024 12:05-0400 Respiratory rate16 /minPerry ESCOBAR [facility]04-25-2024 09:59-0400Mean blood kcsbbrqu540 mm[Hg]Perry ESCOBAR [facility]04-25-2024 09:59-0400Heart rate80 /minPerry ESCOBAR [facility]04-25-2024 09:58-0400Mean blood yxckqquf656 mm[Hg]Perry ESCOBAR [facility]04-01-2024 14:30-0400 Diastolic blood wbqyaarb007 mm[Hg][facility] 05-20-2023 14:30-0400Heart rate69 /minOhio[facility]04-01-2024 14:30-0400Mean blood yvuiigci359 mm[Hg][facility]04-01-2024 14:30-0400Respiratory rate20 /[facility]2024 14:30-8759JrS1% (BldA) [Mass fraction]98 %[facility]04-01-2024 14:30-0400Systolic blood qfpaziul516 mm[Hg][facility]04-01-2024 14:00-0400Diastolic blood uxgoafrz553 mm[Hg][facility]04-01-2024 14:00-0400Heart rate70 /minOhio[facility]04-01-2024 14:00-0400Mean blood mgeaivlc199 mm[Hg][facility]04-01-2024 14:00-0400Respiratory rate18 /minOhio[facility]04-01-2024 14:00-1508AtO7% (BldA) [Mass fraction]99 %[facility]04-01-2024 14:00-0400 Systolic blood muywqmxf847 mm[Hg][facility] 05-20-2023 13:00-0400Diastolic blood zrunsplh01 mm[Hg][facility]04-01-2024 13:00-0400Mean blood taaxljwr242 mm[Hg][facility]04-01-2024 11:36-0400Body jrnqfrhgodd81.88 [degF][facility]04-01-2024 11:36-0400Heart rate 82 /minOhio[facility]03-05-2024 15:03-0500Body dxfvum282.02 cmAcmc Healthcare System03-05-2024 15:03-0500Body mass index (BMI) [Ratio]35.6 kg/j5TxishtztuAcmc Healthcare System03-05-2024 15:03-0500Body cebont46.28 kgAcmc Healthcare System03-05-2024 15:03-0500Diastolic blood oqixqspe16 mm[Hg][facility] 04-23-2023 15:03-0500Heart rate71 /minA[facility] 04-23-2023 15:03-9756PtV7% (BldA) [Mass fraction]97 %[facility]03-05-2024 15:03-0500Systolic blood kzceoybf046 mm[Hg][facility]02-29-2024 10:48-9185YiH5% (BldA) [Mass fraction]98 %[facility] ESCOBAR [facility]02-29-2024 10:41-0500Heart rate53 /minPerry ESCOBAR [facility]02-29-2024 10:41-2417DzI3% (BldA) [Mass fraction]99 %Perry ESCOBAR [facility]02-29-2024 10:41-0500 Diastolic blood ouoqsmnp08 mm[Hg]Perry ESCOBAR [address] [place], [place] [address]602-29-2024 10:41-0500Mean blood ulcvcqda038 mm[Hg]Perry ESCOBAR [facility]02-29-2024 10:41-0500 Systolic blood kqxepajo858 mm[Hg][facility]ry ESCOBAR [facility]02-29-2024 10:40-0500 Respiratory rate18 /minPerry ESCOBAR [facility]02-29-2024 10:35-0500Blood Pressure LocationPerry ESCOBAR [facility]02-29-2024 10:35-0500Body awdzscabjnn65.88 [degF]Perry ESCOBAR [facility]02-29-2024 10:35-0500 Diastolic blood mkfakxmy497 mm[Hg][facility] ESCOBAR [facility]02-29-2024 10:35-0500Heart rate59 /minPerry ESCOBAR [facility]02-29-2024 10:35-0500Mean blood ooqynhlq747 mm[Hg][facility]ry ESCOBAR [facility]02-29-2024 10:35-0500 Respiratory rate15 /minPerry ESCOBAR [facility]02-29-2024 10:35-0246EwX6% (BldA) [Mass fraction]97 %[facility]ry ESCOBAR [facility]02-29-2024 10:35-0500 Systolic blood ielesfga675 mm[Hg][facility]ry ESCOBAR [facility]02-29-2024 10:20-0500Blood Pressure LocationPerry ESCOBAR [facility]02-29-2024 10:20-0500 Diastolic blood lcutyvqh37 mm[Hg][facility]ry ESCOBAR [facility]02-29-2024 10:20-0500Heart rate66 /minPerry ESCOBAR [facility]02-29-2024 10:20-0500Mean blood eqbkacsp894 mm[Hg][facility]ry ESCOBAR [facility]02-29-2024 10:20-0500 Respiratory rate20 /minPerry ESCOBAR [facility]02-29-2024 10:20-0500 Systolic blood soysnpkr316 mm[Hg][facility]ry ESCOBAR [facility]02-29-2024 10:15-0500Blood Pressure LocationPerry ESCOBAR [facility]02-29-2024 10:15-0500Mean blood llkcrsvi320 mm[Hg][facility]ry ESCOBAR [facility]02-29-2024 10:15-0500 Respiratory rate11 /minPerry ESCOBAR [facility]02-29-2024 10:07-0500Body ywilbtvqkqi20.88 [degF]Perry ESCOBAR [facility]02-29-2024 10:00-0500 Respiratory rate13 /minPerry ESCOBAR [facility]02-29-2024 09:55-0500 Respiratory rate15 /minPerry ESCOBAR [facility]02-29-2024 07:52-0500Mean blood erepoovx538 mm[Hg]Perry ESCOBAR [facility]02-29-2024 07:51-0500Body rhozizrtfxe91.52 [degF]Perry ESCOBAR [facility]02-29-2024 07:51-0500Mean blood technzhg172 mm[Hg]Perry ESCOBAR [address] [place], [place] 4397402-09-2024 10:57-0500 Diastolic blood mlsfgewf84 mm[Hg]Perry ESCOBAR [facility]02-09-2024 10:57-0500Heart rate79 /minPerry ESCOBAR [address] [place], [place] 4397402-09-2024 10:57-0500Mean blood atblngze402 mm[Hg]Perry ESCOBAR [facility]02-09-2024 10:57-0500 Systolic blood szwjroxc221 mm[Hg][facility]ry ESCOBAR [facility]02-09-2024 10:56-0500Heart rate76 /minPerry ESCOBAR [facility]02-09-2024 10:56-0621PtK4% (BldA) [Mass fraction]97 %Perry ESCOBAR [facility]02-09-2024 10:56-0500 Diastolic blood ggdkypgy081 mm[Hg]Perry ESCOBAR [facility]02-09-2024 10:56-0500Mean blood dykkhsvk553 mm[Hg]Perry ESCOBAR [facility]02-09-2024 10:56-0500 Systolic blood mm[Hg][facility]ry ESCOBAR [facility]01-30-2024 14:47-0500Body mass index (BMI) [Ratio]36.46 kg/l9Pxehv CongJuxinli Work Phone: [facility] HospitalGzauirxofs68-66-4846 14:47-0500Body .35 kgCorey Cong [employer] Work Phone: [facility] HospitalMgfyblbhmj87-83-2548 14:47-0500Diastolic blood xykwkljz31 mm[Hg]Ramy Cong DO Work Phone: [facility] HospitalFjsepzftjk42-83-7892 14:47-0500Systolic blood mm[Hg]Ramy Cong DO Work Phone: [facility] HospitalExixcvjcih99-05-5091 09:25-0500Blood Pressure LocationPerry ESCOBAR [facility]01-30-2024 09:25-0500Diastolic blood vyufwyhd87 mm[Hg]Perry ESCOBAR [facility]01-30-2024 09:25-0500Systolic blood mm[Hg]Perry [employer] [facility] [place] 706432-12-2023 08:30-0500Body ugjdsp72.17 kgMarclaudia Dill Other [employer] Other [id number] 08:30-0500Diastolic blood ajuwbxyf38 mm[Hg] Gaye Dill Other [employer] Other 12-12-2023 08:30-0500Systolic blood mm[Hg] Gaye Dill Other [employer] Other 05-31-2023 11:45-0400Body skotqh074.02 cmGaye Dill Other [employer] Other 05-31-2023 11:45-0400Body mass index (BMI) [Ratio] 32.41 kg/z1SclrerGaye Dill Other [employer] Other 05-31-2023 11:45-0400Body yyptxy38.01 kgEmilipericosandie Dill Other [employer] Other 05-31-2023 11:45-0400Diastolic blood bnuhwrhy96 mm[Hg] Gaye Dill Other [employer] Other 05-31-2023 11:45-0400Systolic blood pjvfguuu156 mm[Hg] Gaye Dill Other [employer] Other 05-08-2023 15:45-0400Body .02 cmGaye Dill Other [employer] Other 05-08-2023 15:45-0400Body mass index (BMI) [Ratio]31.7 kg/a8FjzshcGaye Dill Other [employer] Other 05-08-2023 15:45-0400Body .19 kgGaye Dill Other [employer] Other 05-08-2023 15:45-0400Diastolic blood yjsxffjn03 mm[Hg] Gaye Dill Other [employer] Other 05-08-2023 15:45-9610KdX5% (BldA) [Mass fraction]99 % Gaye Dill Other [employer] Other 05-08-2023 15:45-0400Systolic blood nyjmjzxb339 mm[Hg] Gaye Dill Other [employer] Other 12-23-2021 17:45-0500Body tuzrzt956.02 Guanaco Fernandes Other [employer]Pay[employer] Other 12-23-2021 17:45-0500Body mass index (BMI) [Ratio] 33.65 kg/f3LxoqeecslColumba Fernandes Other [employer] Other 12-23-2021 17:45-0500Body mwelgjaebsv82.3 [degF] Columba Fernandes Other [employer] Other 12-23-2021 17:45-0500Body avkgqv75.18 kgStsofia Fernandes Other [employer]Pay[employer] Other 12-23-2021 17:45-0500Respiratory rate18 /minSjavier Fernandes Other [employer] Other 12-23-2021 17:45-3195JtQ9% (BldA) [Mass fraction]99 % Columba Fernandes Other [employer] Other Encounters Encounter DateEncounter TypeCare ProviderFacilityStart: 12-07-2024 End: 67-43-3551Xrsxnz outpatient visit 15 minutesCorey Cong DO Work Phone: [facility]iela OBGYNComment on above:Pain in female genitalia on intercourse; Pelvic pain in female; Anxiety, generalizedStart: 12-07-2024 End: 25-03-9308rgtqwncorfZMWXO FAZIONot AvailableStart: 12-07-2024 End: 41-53-2247Fkaafk flowsheetCorey Cong DO Work Phone: [facility] OBGYNStart: 12-07-2024 End: 20-35-4467Ylezdf flowsheetCorey Cong DO Work Phone: [facility] OBGYNStart: 12-07-2024 End: 96-57-9560Gmogqfml Result EncounterCorey Cong DO Work Phone: [facility] External Department UnsolicitedStart: 12-06-2024 End: 77-23-5323Coaynfqbn department patient visitMARCIA E [facility] HospitalStart: 11-25-2024 End: 18-17-0825hluurqbassTiksans P COOKFacility:[facility] Hospitaltart: 11-25-2024 End: 27-30-3445Nzixllb encounter procedureGregyaakov ESCOBAR [facility] Start: 11-01-2024 End: 31-97-3212Ggkfzlunt department patient visitMARCIA E [facility] HospitalStart: 10-27-2024 End: 30-02-3019vcosrncgnyEZUCS FAZIONot AvailableStart: 10-27-2024 End: 58-87-1876Nueykq outpatient visit 15 minutesCorey Cong DO Work Phone: [facility] OBGYNComment on above:Elevated BP without diagnosis of hypertension; Abnormal uterine bleeding (AUB)Start: 10-27-2024 End: 42-71-4297Uufesu flowsheetCorey Cong DO Work Phone: noMS Mariela OBGYNStart: 10-27-2024 End: 61-10-5521Umjprc flowsheetCorey Cong DO Work Phone: [facility] OBGYNStart: 09-15-2024 End: 85-86-4831Noyeuo flowsheetCorey Cong DO Work Phone: [facility] OBGYNStart: 09-15-2024 End: 61-87-1611Rzxjhz flowsheetCorey Cong DO Work Phone: [facility] OBGYNStart: 09-15-2024 End: 22-33-0474Lzwboj outpatient visit 15 minutesCorey Cong DO Work Phone: [facility] OBGYNComment on above:PCOS (polycystic ovarian syndrome); Amenorrhea; Secondary hypertension ; Insulin resistanceStart: 09-15-2024 End: 13-51-7584coacpjntkhYQFJB FAZIONot AvailableStart: 09-08-2024 End: 54-20-1479Mvbodiwqi Result EncounterCorey Cong DO Work Phone: [facility] External Department UnsolicitedStart: 09-08-2024 End: 30-36-6605Nqpplmrne Result EncounterCorey Cong DO Work Phone: [facility] External Department UnsolicitedStart: 08-27-2024 End: 61-70-5907Ylmiuewzc Result EncounterCorey Cong DO Work Phone: NOXH External Department UnsolicitedStart: 08-27-2024 End: 66-27-2840Wwenqaasb Result EncounterCorey Cong DO Work Phone: NOCR External Department UnsolicitedStart: 08-19-2024 End: 20-31-0705Hoioca flowsheetCorey Cong DO Work Phone: NOGY BCP OBStart: 08-19-2024 End: 28-05-5891Bofufk flowsheetCorey Cong DO Work Phone: NOHK BCP OBStart: 08-19-2024 End: 05-79-0323Bndcgdlou Result EncounterCorey Cong DO Work Phone: NOVZ External Department UnsolicitedStart: 08-19-2024 End: 68-68-7386smghabldhyJGMSZ FAZIONot AvailableStart: 08-19-2024 End: 06-36-9771Xxqmrpy encounter procedureCorey Cong DO Work Phone: N[facility] HealthcareStart: 08-19-2024 End: 98-31-9983Brvoywrr preventive med est patient 18-39 yrsCorey Cong DO Work Phone: NOYC BCP OBComment on above:Well woman exam with routine gynecological exam; Female infertility; Amenorrhea; PCOS (polycystic ovarian syndrome)Start: 05-30-2024 End: 79-98-6578Rpheidtxv department patient visitMARCIA E BRAUNProMedica Doctors Hospital of Mantecatart: 03-06-2024 End: 22-27-8400kmkqisynvcGwddjdujtPike Community Hospital Work Phone: Start: 03-06-2024 End: 01-86-3768Iadrmdn encounter procedureFirarvins Physician Group-[facility] Work Phone: Start: 62-47-3559Bdo-patient / Non-visitFirarvins Physician Group-[facility] Work Phone: Start: 12-13-2023 End: 21-75-8110gmbqmqsuqlJmqejgkeaThe [facility] Work Phone: Start: 12-13-2023 End: 33-22-3234Abhbgfk encounter procedureFirarvins Physician Group-[facility] Work Phone: Start: 11-20-2023 End: 33-55-1328Msghygp encounter procedurePerry ESCOBAR [facility] Start: 11-14-2023 End: 07-93-2219voyhjkocojExiipipjuThe [facility] Work Phone: Start: 11-14-2023 End: 04-54-2397Mfkevmq encounter procedureFirarvins Physician Group-[facility] Work Phone: Start: 07-17-2023 End: 54-79-8252ofhfvqtwxxDfruveopfThe [facility] Work Phone: Start: 07-17-2023 End: 35-12-4067Wkxecwd encounter procedureFirarvins Physician Group[facility] Work Phone: Start: 06-13-2023 End: 64-89-2857Glzyhgffc to same day surgery Jose Eduardo ESCOBAR [facility] Start: 06-05-2023 End: 66-49-5608Bmfhobw encounter procedurePerry Catalan SHAWN [facility] Start: 05-28-2023 End: 46-54-8360jruwiggypfPTIGUNW [facility] Start: 05-20-2023 End: 88-72-8028Mfixympcr department patient visitAstrit Roya CarboneW[facility] Start: 05-10-2023 End: 49-39-5247Pbg-admission assessmentPerry ESCOBAR [facility] Start: 22-39-3049Rzb-patient / Non-visitFirelands Physician [facility] Work Phone: Start: 04-23-2023 End: 79-83-3106Tfefgvt encounter procedureFirfort [facility] Work Phone: Start: 04-18-2023 End: 96-15-1304Gaxpthvay to same day surgery centerPerry Catalan SHAWN [facility] [facility] Start: 03-29-2023 End: 02-13-4869Zvloajc encounter procedurePerry Catalan [facility] Start: 03-19-2023 End: 16-72-2484Tupktqr encounter procedureCorey Cong DO Work Phone: [facility] HealthcareStart: 03-19-2023 End: 23-50-4963Vtvsznwr preventive med est patient 18-39 yrsCorey Cong DO Work Phone: NOHY BCP OBComment on above:Well woman exam with routine gynecological examStart: 03-19-2023 End: 81-05-3519Mprbfdn encounter procedureGregory Alayna ESCOBAR [facility] Joseline Start: 03-11-2023 End: 77-90-0690ckobnsurhkWsplou Dill Other [employer] Other Start: 47-80-8215Ccoddytmi encounterMarcia Gia [facility] ClinicStart: 02-22-2023 End: 92-77-2171ugsarshgkyAybrhq Dill Other [employer] Other Start: 31-51-1655Uvgphawhe encounterMarcia Gia [facility] ClinicStart: 02-21-2023 End: 31-37-1219qrrmspkuakScsmke Dill Other [employer] Other Start: 95-67-7394Dqfpkstph encounterMarcia iGa [facility] ClinicStart: 01-29-2023 End: 82-76-9145tsfuhjaikaZaqeuj Dill Other [employer] Other Start: 69-72-8570Dweqdv outpatient visit 25 minutes Gayejones [facility] ClinicStart: 11-16-2022 End: 29-23-2776liqfvidayfYdgpek Dill Other [employer] Other Start: 77-36-1647Wsqsqmmzc encounterMarcia Gia [facility] ClinicStart: 08-27-2022 End: 45-58-4595zomjigrkxrPfnijb Dill Other [employer] Other Start: 39-44-2051Qzulgepdm encounterMarcia Gia [facility] ClinicStart: 08-23-2022 End: 71-18-5208lrdqdrymdlUdlhxz Dill Other [employer] Other Start: 89-41-9964Aeaqmftim encounterMarcia FuentesVETERANS [facility] ClinicStart: 07-18-2022 End: 67-29-3962kkgyepnztkYsjzlj Dill Other [employer] Other Start: 35-10-2819Fycyau outpatient visit 15 minutes Gaye [facility] ClinicStart: 06-25-2022 End: 97-21-6332yspxgybblfMkvpul Dill Other [employer] Other Start: 42-45-4838Lwjfdc outpatient visit 10 minutes Gaye DillVETERANS [facility] [place] ClinicStart: 36-24-1196Lmmyewmza encounterMarcia FuentesVETERANS HE[facility] [place] [facility] ClinicStart: 05-18-2022 End: 71-35-9783vhgnxsgndtYWQXFX Mamie DILLUlman [email or web address] Other Start: 04-10-2022 End: 99-08-0967hgcirwavxtXclkta Dill Other [employer] Other Start: 09-84-0569Cyxttybmr encounterMarcia FuentesVETERANS [facility] [place] [facility] ClinicStart: 04-02-2022 End: 35-67-5336opmpjxktkvBqlajf Dill Other [employer] Other Start: 64-51-6932Vvqywffhe encounterMarcia FuentesVETERANS [facility] [place] [facility] ClinicStart: 03-30-2022 End: 84-59-5894vzwmjsmsezAphqax Dill Other [employer] Other Start: 47-88-9177Bdttyttcv encounterMarcia FuentesVETERANS [facility] ClinicStart: 25-23-7311bsvdjmjtnuAMKWXX Mamie DILLFacility:M4Xnaqm: 02-26-2022 End: 62-01-8451cvdjutlrktClpxep Braun Other [employer] Other Start: 71-58-5674Tliamcqvg encounterGaye Nielsen [facility] ClinicStart: 08-31-2021 End: 91-10-6041flzgrykwgjOHSIUK E FUENTESFacility:Z2Saaxy: 02-09-2021 End: 07-44-3780vyxaekhtjsGxyxrawoy Breault Other [facility] [email or web address] Other Start: 91-31-3526Blgavl outpatient visit 15 minutes Columba MccauleyLexi Urgent Care ClydeStart: 66-28-4596Nirs child visitGaye Dill Other noinSelly [email or web address] Other Start: 08-12-2018 End: 09-49-3622Jdzyprnuf department patient visitAdena [facility] Procedures DateProcedureProcedure DetailPerforming ClinicianStart: 47-15-0727LPOTVCLCY VAGINITIS (HTRX)Ramy Cong DO Work Phone: Start: 12-07-2024 End: 83-17-5597Uqeuo dip stick/tablet rgnt non-auto w/o micrscpCorey Cong DO Work Phone: Start: 54-49-7867JSW CBC WITH AUTO DIFFCorey Cong DO Work Phone: Start: 96-18-5056AD PELVIS W/ TRANSVAGINALCorey Cong DO Work Phone: Start: 53-32-9116FJX PROLACTINCorey Cong DO Work Phone: Start: 04-72-4472Qrgjl dip stick/tablet rgnt non-auto w/o micrscpCorey Cong DO Work Phone: Start: 20-76-2769Pjjgyxdgfnbxh cystoscopyGregory COOK Comment on above:Left stent removal, stone extraction, stone basket and homium laserStart: 67-68-9737Krxucu-up visitFollow-upMOHAMAD ALGHOTHANIStart: 06-36-5116Dsfdytgilnstua shockwave lithotripsy of calculus of kidneyPerry ESCOBAR [employer] Start: 90-49-5182IJSQ OP SHOEStart: 72-94-5211Ptjflk examination of sub-groupEmilicisandie Dill Other End: 52-50-8382Eufvwtdvs screeningMarcia Dill Other End: 39-62-6506Ddkmktrq mellitus screeningEmilicia Dill Other Insertion of intrauterine contraceptive deviceGaye Dill Other LithotripsyAstrit HajdariPlacement of stentStent placement 2Astrit HajdariComment on above:stent in ureterPostnatal visitGaye Dill Other End: 78-13-1026Ympsdmg of intrauterine deviceGaye Dill Other TonsillectomyPerry ESCOBAR [facility] Tooth structure (body structure)Perry ESCOBAR [facility] Plan of Treatment DateCare ActivityDetailAuthorStart: 01-06-2025 End: 02-75-9028Nrwhttq encounter dpuhxwjih57/19/2025 2:20 PM EST Office Visit DAMIEN ARMENDARIZ [address] [address] Ramy Gar DO [address] [place], [place] [address] DAMIEN JANSENtart: 12-07-2024 End: 46-38-8203Jmflevv encounter vntqmogyu94/20/2025 2:20 PM EDT Office Visit DAMIEN ARMENDARIZ [address] [place] [address] Ramy Gar, DO [address] [place] [address] ArrivedNOMS Sierra OBGYNComment on above:ArrivedStart: 12-07-2024 End: 21-28-1571USEODEDP(R) ADVANCED VAGINITIS PLUS, TMASURESWAB(R) ADVANCED VAGINITIS PLUS, TMA Pathology and Cytology Routine Pelvic pain in female Expect ed: 12/07/2024 (Approximate), Expires: 12/07/2025[facility] Work Phone: comment on above:Expected: 12/07/2024 (Approximate), Expires: 12/07/2025Start: 10-01-2024 End: 40-56-6097Pwcamgd encounter imubqypea37/14/2025 11:20 AM EDT Office Visit DAMIEN CORODVAN [address] [place] [address] Ramy Gar, DO [address] [place] [address] NOMOj [place] OBGYNStart: 09-15-2024 End: 45-23-8273Idukrzz encounter procedureNOMS BCP OBComment on above:Arrived Start: 08-19-2024 End: 93-78-6151QKLQAAAA Lab Routine PCOS (polycystic ovarian syndrome) Expected: 08/19/2024 (Approximate), Expires: 08/19/2025NOMS HealthcareComment on above: Expected: 08/19/2024 (Approximate), Expires: 08/19/2025Start: 08-19-2024 End: 09-36-1935OS PelvisUS Pelvis w/ TV Imaging Routine PCOS (polycystic ovarian syndrome) Expected: 08/19/2024, Expires: 08/19/2025NOMS HealthcareComment on above:Expected: 08/19/2024, Expires: 08/19/2025Start: 05-03-2023 End: 79-20-1502Yywtgouu Irfuhpf2905/03/2023 10:10 AM EDT Clinical Support [facility] [address] [place] [address] [facility] OBCBC W Auto Differential panel - BloodCBC and differential Lab Routine PCOS (polycystic ovarian syndrome) Ordered: 08/19/2024AL HealthcareComment on above:Ordered: 08/19/2024HLAMYDIA TRACHOMATIS (GENITO/STI)CHLAMYDIA TRACHOMATIS (GENITO/STI) Lab Routine Pelvic pain in female Ordered: 12/07/2024AL HealthcareComment on above:Ordered: 12/07/2024ytology Cervical or vaginal smear or scraping studyPap Smear Pathology and Cytology Routine Well woman exam with routine gynecological exam Ordered: 03/19/2023[facility] Healthcare Work Phone: comment on above:Ordered: 03/19/2023ytology Cervical or vaginal smear or scraping studyPap Smear Pathology and Cytology Routine Well woman exam with routine gynecological exam Ordered: 08/19/2024[facility] Healthcare Work Phone: comment on above:Ordered: 08/19/2024DHEA-sulfateDHEA- sulfate Lab Routine PCOS (polycystic ovarian syndrome) Ordered: 08/19/2024AL HealthcareComment on above:Ordered: 08/19/2024Follicle stimulating hormone Follicle stimulating hormone Lab Routine PCOS (polycystic ovarian syndrome) Ordered: 08/19/2024[facility] HealthcareComment on above:Ordered: 08/19/2024hCG, quantitative, pregnancyhCG, quantitative, Lab Routine PCOS (polycystic ovarian syndrome) Ordered: 08/19/2024[facility] HealthcareComment on above:Ordered: 08/19/2024Hemoglobin A1c/Hemoglobin.total in BloodHemoglobin A1c Lab Routine Amenorrhea Ordered: 08/19/2024[facility] HealthcareComment on above:Ordered: 08/19/2024Luteinizing hormoneLuteinizing hormone Lab Routine PCOS (polycystic ovarian syndrome) Ordered: 08/19/2024[facility] HealthcareComment on above:Ordered: 08/19/2024Neisseria gonorrhoeae DNA [Presence] in Unspecified specimen by JAGRUTI with probe detectionNeisseria gonorrhea DNA probe, direct Lab Routine Pelvic pain in female Ordered: 12/07/2024[facility] HealthcareComment on above:Ordered: 12/07/2024ProlactinProlactin Lab Routine Amenorrhea Ordered: 08/19/2024[facility] HealthcareComment on above:Ordered: 08/19/2024Thyrotropin [Units/volume] in Serum or PlasmaTSH Lab Routine PCOS (polycystic ovarian syndrome) Ordered: 08/19/2024NOAL HealthcareComment on above:Ordered: 08/19/2024Thyroxine (T4) free [Mass/volume] in Serum or PlasmaT4, free Lab Routine PCOS (polycystic ovarian syndrome) Ordered: 08/19/2024[facility] HealthcareComment on above:Ordered: 08/19/2024 Immunizations Immunization DateImmunizationNotesCare AmwvuoglYucridjy40-72-7450rqjrnjwwzi, tetanus toxoids and acellular pertussis vaccine, unspecified formulationMarcia Dill Other [facility]08-21-2008DTaP, unspecified formulationGregory [employer]App [facility]08-21-2008poliovirus vaccine, unspecified formulationGregAppear [facility]08-21-2008varicella virus vaccineAnderson Regional Medical CenterDistil Networks [facility]08-10-2006diphtheria, tetanus toxoids and acellular pertussis vaccine PerryDistil Networks [facility]08-10-2006measles, mumps and rubella virus vaccineAnderson Regional Medical CenterDistil Networks [facility]10-06-2004DTaP, unspecified formulationGregory [employer] [facility]10-06-2004measles, mumps and rubella virus vaccineGregDistil Networks [facility]y10-06-2004poliovirus vaccine, unspecified formulationGregory COOK [facility]y10-06-2004varicella virus vaccineGregory [employer] [facility]06-13-2003DTaP, unspecified formulationGregory COOK [facility]06-13-2003poliovirus vaccine, unspecified formulationGregory COOK [facility]03-07-2003DTaP, unspecified formulationGregory [employer] [facility]03-07-2003poliovirus vaccine, unspecified formulationGregory [employer] [facility] Payers DatePayer CategoryPayerPolicy [id number] (Managed Care)[place] [employer] [id number] 2023Medicaid[place] MEDICAID [facility] [id number] 2022-Present [address] [address] [place] [id number] Health [id number] [facility] [id number] 2022-Present [address] [place] [id number] Health [id number] 2.16.840.1.682136.3.579.2.593 [id number] 2.16.840.1.281559.3.579.2.69167-31-2351Fbdromx [id number] 2.16.840.1.120096.3.57[id number] 2.840.1.180554.3.57[id number] 2.16.840.1.916371.3.57[id number] 2.16.840.1.928467.3.57[id number] 2.16.840.1.531047.3.57[id number] 2.16.840.1.807185.3.57[id number] 2.16.840.1.105488.3.57[id number] 2.16.840.1.634161.3.57[id number] 2.16.840.1.471059.3.57[id number] 2.16.840.1.049320.3.57[id number] 2.16.840.1.357226.19 [id number] 2.16.840.1.802632.19 Social History DateTypeDetailFacilityStart: 08-27-2022 End: 98-50-7845Xkn [facility] At [facility] Hospitaltart: 08-27-2022 End: 63-09-4697Rmxjjdf smoking statusNever smoked tobacco (finding)[facility] HospitalyStart: 76-46-4793Qewkicf smoking statusNeverExecutive Urology of [facility] HospitalyStart: 23-35-9878Vypqafj use and exposureSmokeless tobacco non-userNOMS Healthcare Start: 03-19-2023 End: 87-33-5913Mbdicye intakeLifetime non-drinker (finding)[facility] HealthcareStart: 08-27-2022 End: 84-54-6092Xcmvdip of Social functionNOMS HealthcareStart: 81-43-7679Dxo Assigned At BirthNot on fileNOAL HealthcareTobaccoCurrent vaping or e-cigarette use Smokeless Tobacco Use:. VapingWright-Patterson Medical CenterTobacco smoking statusCommunity Regional Medical Centertart: 95-87-3228Qfd Assigned At [facility] Memorial HospitalTobacco smoking status NHISUnknown if ever smokedKeenan Private Hospital Work Phone: Start: 11-26-2018 End: 82-61-3390UytZldoma (finding)[facility] Medical Equipment Procedure CodeEquipment CodeEquipment Original TextEquipment IdentifierDates CYSTOSCOPY STENT INSERTION Perry ESCOBAR MD 04/18/23 Unknown Ureter LFDAStart: 55-94-5558CNJKMUZAKK STENT INSERTION Perry ESCOBAR MD 04/18/23 Unknown Ureter L FDAStart: 01-80-4985HCZOCQOFPA STENT INSERTION Perry ESCOBAR MD 04/18/23 Unknown Ureter LFDAStart: 35-32-8413YLZZUQXVAC STENT INSERTION Perry ESCOBAR MD 04/18/23 Unknown Ureter LFDAStart: 80-78-6945RPWZBUVTFF STENT INSERTION Perry ESCOBAR MD 04/18/23 Unknown Ureter LFDAStart: 54-50-1479TDYAUWOSUP STENT INSERTION Perry ESCOBAR MD P 04/18/23 Unknown Ureter LFDAStart: 04-18-2023 CYSTOSCOPY STENT INSERTION Perry ESCOBAR MD 04/18/23 Unknown Ureter LFDAStart: 04-18-2023 Functional Status PpuiJxhgiphzgwAwdotbUnyjxtlw24-67-5734Qpoipvsfpf StatusN/AExecutive [facility]04-17-2024Functional StatusN/AExec[facility]04-15-2024Functional StatusNo [facility]04-01-2024Functional StatusN/AFOhio State University [facility]02-09-2024Functional StatusNoW[facility] Medical Center 98-73-3609Acmtggciye StatusN/AExecutive [facility] Clinical Notes 02-09-2021 to 12-07-2024 Note Date & GgduLmthVgbkzvxh27-69-3651 History of Present illness Narrative* Katlyn Sol LPN - 12/07/2024 2:20 PM EDT Reason for Appointment: Patient ID: Sunshine Ryder is a 24 y.o. female who presents for Painful [place] Patient presents today for Painful intercourse. MEDICATIONS [...] 07/27/2022 Other specified related conditions, unspecified trimester ([facility]) 07/27/2022 Palpitations 02/01/2022 Pelvic and perineal pain [...] cramping Rh negative state in antepartum period ([facility]) Surveillance for control, intrauterine device HISTORY PAST [...] cramping Rh negative state in antepartum period ([facility]) Surveillance for control, intrauterine device Syncope and collapse Vaginal discharge Social History Tobacco Use Smoking status: Never Smokeless tobacco: Never Substance Use Topics Alcohol use: Never Drug use: Never FAMILY HISTORY Family History Problem Relation Name Age of Onset Hypertension Mother Depression Mother Migraines Mother Hypertension Maternal Grandmother Diabetes Maternal Grandmother Diabetes Paternal Grandmother SURGICAL HISTORY Past Surgical History: Procedure Laterality Date LITHOTRIPSY MI TONSILLECTOMY & ADENOIDECTOMY <AGE 14 WISDOM TOOTH [...] nursing note reviewed. Exam conducted with a air pollution inspector present. Vitals: Estimated body mass index is 39.86 kg/m as calculated from the following: Height [...] of: Ramy Gar DO documented in this encounterKindred HospitalXqmoczbzuh44-40-8973 History of Present illness Narrative* Snow Ambrosio LPN - 10/27/2024 2:10 PM EDT Reason for Appointment: Patient ID: Sunshine Ryder is a 24 y.o. female who presents for Follow-up Patient presents today for Acute Visit. and Fertility Follow Up appointment. MEDICATIONS Current Outpatient Medications Medication Instructions labetalol [...] 07/27/2022 Other specified related conditions, unspecified trimester ([facility]) 07/27/2022 Palpitations 02/01/2022 Pelvic and perineal pain [...] cramping Rh negative state in antepartum period ([facility]) Surveillance for control, intrauterine device HISTORY PAST [...] cramping Rh negative state in antepartum period ([facility]) Surveillance for control, intrauterine device Syncope and collapse Vaginal discharge Social History Tobacco Use Smoking status: Never Smokeless tobacco: Never Substance Use Topics Alcohol use: Never Drug use: Never FAMILY HISTORY Family History Problem Relation Name Age of Onset Hypertension Mother Depression Mother Migraines Mother Hypertension Maternal Grandmother Diabetes Maternal Grandmother Diabetes Paternal Grandmother SURGICAL HISTORY Past Surgical History: Procedure Laterality Date LITHOTRIPSY MI TONSILLECTOMY & ADENOIDECTOMY <AGE 14 WISDOM TOOTH [...] nursing note reviewed. Exam conducted with a air pollution inspector present. Vitals: Estimated body mass index is 40.57 kg/m as calculated from the following: Height as of this encounter: 5' 3 . Weight as of this encounter: 229 lb. BP: (!) 144/100 No LMP recorded. (Menstrual status: No Periods). ASSESSMENT & PLAN ICD-10-CM 1. Elevated BP without diagnosis of hypertension R03.0 NIFEdipine XL (Procardia XL) 30 MG 24 hr tablet 2. Abnormal uterine bleeding (AUB) N93.9 medroxyPROGESTERone (Provera) 10 MG tablet Patient presents today to discuss fertility. P Patient was instructed to call the office once menstrual cycle begins so femara can be called into patients pharmacy. Patient has been instructed to take Femara on days 3-7 of cycle. On day 21 of cycle patient is to have progesterone labs drawn. Patient was advised to have intercourse on days 12, 14, 16, 18, and 20 of cycle. We will do three rounds of Femara and if patient has not conceived by then, we will perform HSG. Patient has voiced understanding and will call our office for any further questions/concerns. Procardia faxed to pharmacy and provera to induce cycle No orders of the defined types were placed in this encounter. Follow Up: 4 month Documented by Snow Ambrosio LPN on behalf of: Ramy Gar DO documented in this encounterKindred HospitalPnlyhdbivv68-02-1932 History of Present illness Narrative* Snow Ambrosio LPN - 09/15/2024 10:50 AM EDT Reason for Appointment: Patient ID: Sunshine Ryder is a 24 y.o. female who presents for Follow-up Patient presents today for Follow up appointment to discuss results. MEDICATIONS No current outpatient medications ALLERGIES Allergies Allergen Reactions Codeine Hives, Other [...] 07/27/2022 Other specified related conditions, unspecified trimester ([facility]) 07/27/2022 Palpitations 02/01/2022 Pelvic and perineal pain [...] cramping Rh negative state in antepartum period ([facility]) Surveillance for control, intrauterine device HISTORY PAST [...] cramping Rh negative state in antepartum period ([facility]) Surveillance for control, intrauterine device Syncope and collapse Vaginal discharge Social History Tobacco Use Smoking status: Never Smokeless tobacco: Never Substance Use Topics Alcohol use: Never Drug use: Never FAMILY HISTORY Family History Problem Relation Name Age of Onset Hypertension Mother Depression Mother Migraines Mother Hypertension Maternal Grandmother Diabetes Maternal Grandmother Diabetes Paternal Grandmother SURGICAL HISTORY Past Surgical History: Procedure Laterality Date LITHOTRIPSY MI TONSILLECTOMY & ADENOIDECTOMY <AGE 14 WISDOM TOOTH EXTRACTION REVIEW OF SYSTEMS Review of Systems: Review of Systems Constitutional: Negative. HENT: Negative. Eyes: Negative. Respiratory: Negative. Cardiovascular: Negative. Gastrointestinal: Negative. Genitourinary: Positive for menstrual problem. Musculoskeletal: Negative. Skin: Negative. Neurological: Negative. All [...] nursing note reviewed. Exam conducted with a air pollution inspector present. Vitals: Estimated body mass index is 40.57 kg/m as calculated from the following: Height as of 08/19/24: 5' 3 . Weight as of this encounter: 229 lb. BP: (!) 132/110 No LMP recorded (lmp unknown). (Menstrual status: No Periods). ASSESSMENT & PLAN ICD-10-CM 1. PCOS (polycystic ovarian syndrome) E28.2 2. Amenorrhea N91.2 Pt presents to discuss labs and ultrasound. Pt advised to take labetalol and metformin. Pt to return in 2 weeks for fertility appt and bp check. Reviewed labs and ultrasound with pt in detail. Documented by Snow Ambrosio LPN on behalf of: Ramy Gar DO documented in this encounterKindred HospitalKmhhbyncps29-74-3289 History of Present illness Narrative* Snow Ambrosio LPN - 08/19/2024 11:20 AM EDT Reason for Appointment: Patient ID: Sunshine Ryder is a 24 y.o. female who presents for Gynecologic Exam (Pt present today for annual visit.) and Infertility (Pt present today to discuss infertility issue. Patient states anihas not had a period since May 2024 [...] 07/27/2022 Other specified related conditions, unspecified trimester ([facility]) 07/27/2022 Palpitations 02/01/2022 Pelvic and perineal pain [...] cramping Rh negative state in antepartum period ([facility]) Surveillance for control, intrauterine device HISTORY PAST [...] cramping Rh negative state in antepartum period ([facility]) Surveillance for control, intrauterine device Syncope and collapse Vaginal discharge Social History Tobacco Use Smoking status: Never Smokeless tobacco: Never Substance Use Topics Alcohol use: Never Drug use: Never FAMILY HISTORY Family History Problem Relation Name Age of Onset Hypertension Mother Depression Mother Migraines Mother Hypertension Maternal Grandmother Diabetes Maternal Grandmother Diabetes Paternal Grandmother SURGICAL HISTORY Past Surgical History: Procedure Laterality Date LITHOTRIPSY MI TONSILLECTOMY & ADENOIDECTOMY <AGE 14 WISDOM TOOTH [...] nursing note reviewed. Exam conducted with a air pollution inspector present. Vitals: Estimated body mass index is [...] have them. Patient canalso view results via Babelwayhart. I reinforced importance of condom use for [...] of: Ramy Gar DO documented in this encounterKindred HospitalPnrpulsheq25-04-9882 Evaluation note* Diagnosis Onset Date Resolution Status Admit Date Adult attention deficit disorder acuteOctober 2023 8:55amSinusitis, acute maxillaryacuteOctober 2023 8:55am [facility] Work Phone: [phone]) 886-899910-02-2024 Hospital Discharge instructions Patient Education 11/20/2023 15:35:40 [...] include: ?8 oz (237 mL) of milk, syfxrtd-huweksivtfjt-xtphf milk, and calcium- fortifiedfruit juice. Calcium-fortified means [...] ?Spinach (cooked), rhubarb, beets, sweet potatoes, and Somali chard. ?Peanuts. ?Potato chips, [place] fries, and baked potatoes with skin on. ?Nuts and nut products. ?Chocolate. If you regularly take a diuretic medicine, make sure to eat at least 1 or 2 servings of fruits or vegetables that are high in potassium each day. These include: ?Avocado. ?Banana. ?[place], prune, carrot, or tomato juice. ?Baked potato. [...] magnesium, fish oil, or vitamin B6. Take qwin-xmt-yghuiqg and prescription medicines only as told by [...] Casseroles. Pizza. Lasagna. Frozen meals. Potato chips. [place] fries. The items listed above may not [...] provider. Document Revised: 05/17/2022 Document Reviewed: 05/17/2022 Elsevier Patient Education 2023 591wed. Follow Up Care 10/28/2023 14:26:35 With:SHAWN COOK, Perry Catalan, URL Address: [address] [place], [place] [phone]- When: Unknown [facility] 04-25-2024 Hospital Discharge instructions Patient Education 06/13/2023 13:55:17 Post Op Patient Instructions - FT (Custom) (CUSTOM) 06/13/2023 11:26:22 Zkee-Ibot-rn Utereroscopy,Lithotripsy, Stone Extraction, Stent Placement (Custom) [facility] [place], [place] Dr. Perry Ramsay Post-operative Instructions for Ureteroscopy, Laser Lithotripsy, [...] other reasons. 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 [facility]04-25-2024 Evaluation + Plan note Diagnostic Tests Pending * Calculi Analysis Urinary 06/13/23 Future Scheduled Tests Radiology* XR Abdomen 1 View 04/19/23 [facility]04-17-2024 Hospital Discharge instructions Patient Education [...] including vitamins, herbs, eye drops, creams, and xumf-qkd-rgqiaig medicines. Any problems you or family members [...] provider tells you to take them. Taking bate-dpj-dfzbved medicines, vitamins, herbs, and supplements. Tests You [...] provider. Document Revised: 01/01/2022 Document Reviewed: 10/09/2021 [employer] Patient Education 2022 [employer] Follow Up Care 06/05/2023 08:12:19 With:SHAWN COOK, Perry Catalan, URL Address: [facility] [employer] [address] [address]- When: Unknown [facility] 04-09-2024 NoteCardiology Clinic Note Chief Complaint: Palpitations, HTN [...] cardiology with any questions or concerns. Velma Shaffer MD Interventional Cardiology [facility]04-01-2024 Hospital Discharge instructions Patient Education 05/20/2023 [...] Follow these instructions at home: Medicines Take ibun-wbh-tvmnifz and prescription medicines only as told by [...] or the blood stops without treatment. Take gael-ali-unkckfn and prescription medicines only as told by your health care provider. Drink enough fluid to keep your urine pale yellow. This information is not intended to replace advice given to you by your health care provider. Make sure you discuss any questions you have with your health care provider. Document Revised: 10/05/2020 Document Reviewed: 10/05/2020 [employer] Patient Education 2022 [id number]. 05/20/2023 14:37:25 Ureteral Stent Implantation, Care After [...] Follow these instructions at home: Medicines Take xvot-wja-pkaipvz and prescription medicines only as told by [...] actions to prevent or treat constipation: ?Take jron-pyk-euafopw or prescription medicines. ?Eat foods that are [...] last for up to 1 week. Take mopr-dhc-xliwenx and prescription medicines only as told by [...] provider. Document Revised: 03/12/2022 Document Reviewed: 03/12/2022 [employer] Patient Education 2022 [id number]. 05/20/2023 14:37:25 Flank Pain, Adult Flank Pain, [...] told by your health care provider. Take xqtg-qxd-cnuylhb and prescription medicines only as told by [...] provider. Document Revised: 04/17/2021 Document Reviewed: 04/17/2021 [employer] Patient Education 2022 [id number]. Follow Up Care 05/20/2023 11:33:39 With:Perry ESCOBAR Address: [address] [address]- Business (1) When:05/23/2023 14:21:58 Comments:Call Dr for diagnosis based follow up. Dr. Escobar's office is going to call. Call the office if they do not call you in the next couple days. Continue taking Bactrim as prescribed. Return to the emergency room if your pain gets worse, fever or any new symptoms. With:GAYE DILL Address: [address] [place] [phone]- Business (1) When:Within 3 Day(s) [facility]04-01-2024 Evaluation + Plan noteExtracted from: Title:ED NoteAuthor:Lawson Carbone M.D. HDate:05/20/23 1. Flank pain (R10.9: Unspec ified abdominal pain) 2. Hematuria (R31.9: Hematuria, unspecified) Orders: ketorolac, 30 mg = 1 mL, Injection, IV Push, Once, Stop date 05/20/23 11:59:00 EDT, STAT, Start date 05/20/23 11:59:00 EDT, 05/20/23 11:59:00 EDT Sodium Chloride 0.9% intravenous solution, 1,000 mL, Soln-IV, IV, Once, Stop date 05/20/23 11:59:00EDT, STAT, Start date 05/20/23 11:59:00 EDT, Infuse over 61, minute(s) Basic Metabolic Panel CBC w/ Auto Diff eGFR Extra SST Tube PT & PTT U Beta Hcg Qual UA with Cult Rflx Urine Culture US Renal XR Abdomen 1 View Future Appointments Appointment Date:05/30/2023 01:30:00 PM Scheduled Provider: Location:[facility] Appointment Type:Surgical PAT FT Appointment Date:06/13/2023 11:15:00 AM Scheduled Provider: Location:[facility] Appointment Type:Surgery FT Diagnostic Tests Pending * Urine Culture 05/20/23 Future Scheduled Tests Radiology* XR Abdomen 1 View 04/19/23 [facility]02-29-2024 Evaluation + Plan noteExtracted from: Title:ANES Post-operative Note - GeneralAuthor:Aamir Patel Jr., DO GDate: 04/18/23 Plan Transfer/Discharge: Transfer/Discharge Discharge when meets criteria ( From PACU to Ambulatory Surgery Unit, and To home ). Extracted from:Title:ANEOj Pre-operative Note - AdultAuthor:Aamir Patel Jr., DOate:04/18/23 Plan [place] [employer] (ASA) physical status classification: Class II. Anesthetic Preoperative Plan: Anesthesia General.[facility] 04-18-2023 Hospital Discharge instructions Patient Education 04/18/2023 10:51:20 [...] Follow these instructions at home: Medicines Take zbvr-usy-iiclsdp and prescription medicines only as told by [...] provider. Document Revised: 01/01/2022 Document Reviewed: 10/09/2021 [employer] Patient Education 2022 [id number]. Follow Up Care 03/19/2023 10:26:52 With:Perry ESCOBAR Address: [address] [place], [place] [phone] Business (1) When: Unknown Comments:Please call my [...] the fluids to keep the urine clear. [facility]01-30-2024 History of Present illness Narrative* Ramy Cong, DO - 03/19/2023 2:10 PM EST Reason [...] discomfort in left flank Anxiety and depression (CMS/[facility]) BMI 32.0-32.9,adult Ceruminosis, bilateral Depot contraception Encounter [...] Never Past Surgical History: Procedure Laterality Date [place] TONSILLECTOMY & ADENOIDECTOMY <AGE 14 Allergies Allergen [...] nursing note reviewed. Exam conducted with a air pollution inspector present. Vitals: Estimated body mass index is [...] of: Ramy Gar DO documented in this encounterKindred [id number] Hospital Discharge instructions Patient Education 03/19/2023 10:15:59 [...] include: ?8 oz (237 mL) of milk, zmkepnv-brxumrqoqzyy-hekdj milk, and calcium- fortifiedfruit juice. Calcium-fortified means [...] ?Spinach (cooked), rhubarb, beets, sweet potatoes, and Somali chard. ?Peanuts. ?Potato chips, [place] of [place] fries, and baked potatoes with skin on. ?Nuts and nut products. ?Chocolate. If you regularly take a diuretic medicine, make sure to eat at least 1 or 2 servings of fruits or vegetables that are high in potassium each day. These include: ?Avocado. ?Banana. ?[place], prune, carrot, or tomato juice. ?Baked potato. [...] magnesium, fish oil, or vitamin B6. Take rwor-cha-lsavbbb and prescription medicines only as told by [...] Casseroles. Pizza. Lasagna. Frozen meals. Potato chips. [place] fries. The items listed above may not [...] provider. Document Revised: 05/17/2022 Document Reviewed: 05/17/2022 [employer] Patient Education 2022 [employer] Follow Up Care 01/29/2023 14:42:34 With:SHAWN COOK, Perry Catalan, URL Address: [address] [place] [address] [place] [phone]- When: Unknown Comments:Schedule stone procedure [facility] 01-22-2024 Evaluation note* Encounter Date Diagnosis Assessment Notes Treatment Notes Treatment Clinical Notes Feb, Adult attention deficit disorder (ICD-10 - F98.8) [facility] Other 01-05-2024 Evaluation note* Encounter Date Diagnosis Assessment Notes Treatment Notes Treatment Clinical Notes Feb, Chronic GERD (ICD-10 - K21.9) [facility] Other 01-04-2024 Evaluation note* Encounter Date Diagnosis Assessment Notes Treatment Notes Treatment Clinical Notes Feb, Essential (primary) hypertension (ICD-10 - I10) [facility] Other 12-12-2023 Evaluation note* Encounter Date Diagnosis Assessment Notes Treatment Notes Treatment Clinical Notes Jan, Essential (primary) hypertension (ICD-10 - I10) Start low dose b-steven to improve BP and less headaches. Jan,hronic GERD (ICD-10 - K21.9)change to H2 steven that should provide better results. Jan,dult attention deficit disorder (ICD-10 - F98.8)Pt will take med for this chronic condition as prescribed for better results. Jan,URI, acute (ICD-10 - J06.9)Pt agrees symptoms are resolving Jan,Nephrolithiasis (ICD-10 - N20.0)Pt will contact Urology and let me know if they do not schedule her in the reasonable future. Notescontinued hematuria. [facility] Other 09-29-2023 Evaluation note* Encounter Date Diagnosis Assessment Notes Treatment Notes Treatment Clinical Notes Oct, Adult attention deficit disorder (ICD-10 - F98.8) [facility] Other 05-31-2023 Evaluation note* Encounter Date Diagnosis Assessment Notes Treatment Notes Treatment Clinical Notes June, Adult attention deficit disorder (ICD-10 - F98.8) chronic problem, stable on present dose. June,Visual disturbance (ICD-10 - H53.9)Exam and presentation are very reassuring. Advise she take Tylenol for headache. She has been taking ibuprofen with moderate improvement. Patient adamantly denies any further visual symptoms. If symptoms recur or further problems we will refer her to a opthomologist [facility] Other 05-08-2023 Evaluation note* Encounter Date Diagnosis Assessment Notes Treatment Notes Treatment Clinical Notes June, Homeless family (ICD-10 - Z59.00 ) Note provided. States she needs this to get help with housing through [employer]. [facility] Other 12-23-2021 Evaluation note* Encounter Date Diagnosis Assessment Notes Treatment Notes Treatment Clinical Notes Jan, Contact with and (wilkins spected) exposure to other viral communicable diseases (ICD-10 [...] is performed too soon. It is recommended thateven if results are negative and you have been exposed to someone that has COVID that you follow current CDC recommendations. These can be found at CDC.GOV. Follow up with primary care provider if symptoms persist or do not improve *VIRAL URI HANOUT GIVEN ON OTC TREATMENTS, FOLLOW UP AND WHEN TO SEEK EMERGENCY TREATMENT Jan,ore throat (ICD-10 - J02.9) Jan,Other Additional time spent conducting pre-visit phone call, screening for symptoms, instructions on social distancing, application and removal of PPE, and cleaning of examination room, equipment and supplies was preformed. Patient education given for testing methodology and results. Patient care instructions given in writting by CDC Care At Home document. [facility] Other Evaluation + Plan note Future Appointments Appointment Date:03/29/2023 10:30:00 AM Scheduled Provider: Location:[facility] Appointment Type:Surgical PAT FT Appointment Date:04/18/2023 09:30:00 AM Scheduled Provider: Location:[facility] Appointment Type:Surgery FT [facility] Evaluation + Plan note Future Appointments Appointment Date:04/18/2023 09:30:00 AM Scheduled Provider: Location:[facility]ment [facility] Future Appointments Appointment Date:06/13/2023 11:15:00 AM Scheduled Provider: Location:[facility] Appointment Type:Surgery FT Future Scheduled Tests Radiology* XR Abdomen 1 View 04/19/23 [facility] Future Appointments Appointment Date:06/07/2023 12:30:00 PM Scheduled Provider: Location:[facility] Appointment Type:Surgical PAT FT Appointment Date:06/13/2023 11:15:00 AM Scheduled Provider: Location:[facility] Appointment Type:Surgery FT Future Scheduled Tests Radiology* XR Abdomen 1 View 04/19/23 [facility] Evaluation + Plan note Future Appointments Appointment Date:11/25/2024 03:15:00 PM Scheduled Provider:Perry ESCOBAR MD Location:[facility] Appointment Type:URO Office Visit Future Scheduled Tests Radiology* XR Abdomen 1 View 04/19/23 [facility] Evaluation noteNo InformationNort [email or web address] Other evaluation note* Diagnosis Well woman exam with routine gynecological exam Routine gynecological examination documented [facility] encounter [facility]* Diagnosis Onset Date Resolution Status Essential (primary) hypertension acuteMigraineacute [facility] Work Phone: Evaluation noteNo assessment information available [facility] Work Phone: Evaluation note* Diagnosis Onset Date Resolution Status Bronchitis acute [facility] Work Phone: Evaluation note* Diagnosis Well woman exam with routine gynecological exam Routine gynecological examination Female infertility Female infertility of unspecified origin Amenorrhea Absence of menstruation PCOS (polycystic ovarian syndrome) Polycystic ovaries documented in this encounter [facility]* Diagnosis PCOS (polycystic ovarian syndrome) Polycystic ovaries Amenorrhea Absence of menstruation Secondary hypertension Other secondary hypertension, unspecified Insulin resistance Other abnormal glucose documented [facility] this [facility]* Diagnosis Elevated BP without diagnosis of hypertension Abnormal uterine bleeding (AUB) documented [facility] this [facility]* Diagnosis Pain in female genitalia on intercourse Dyspareunia Pelvic pain in female Unspecified symptom associated with female genital organs Anxiety, generalized documented in this encounter [facility] general Narrative - Reported* Type Description Date Surgical History ADENOIDECTOMY Surgical HistoryTONSILLECTOMYHospitalization HistorySEE SURGICAL [facility] Other History general Narrative - Reported* Type Description Date Medical History Adult attention deficit disorder Medical HistoryLumbar painMedical HistoryLeft flank discomfortMedical History Syncope and collapseMedical HistoryMenorrhagiaMedical HistoryKidney stoneMedical HistoryAnxiety and depressionMedical HistoryGERD (gastroesophageal reflux disease)Surgical HistoryADENOIDECTOMYSurgical HistoryTONSILLECTOMY Hospitalization HistorySEE SURGICAL [facility] Other Hospital course Narrative No data available for this section [facility] Hospital Discharge instructions No data available for this section [facility] No data available for this section [facility] Summary Purpose Family History Relationship Condition [...] Visit Chief Complaint Headaches Amb Documentation med refillsReason for VisitEssential (primary) hypertension Migraine Chief Complaint chest congestion, co ugh Chief Complaint chest congestion, co ugh sore throat not getting betterReason for VisitBronchitis Chief Complaint Admit Date sore throat not getting better November 192023 8:55am Amb Documentation March 04, 2024 8 :53am ER f/u migraine/Discuss BP Meds March 06, 2024 9:59am Reason for Visit Admit Date Adult attention deficit disorder December 13, 2023 8:55am Sinusitis, acute maxillary December 13, 2023 8:55am Additional Source Comments INFORMATION SOURCE (unrecogn ized section and content) DATE CREATED AUTHOR 08/12/2018 [facility] DATE CREATED AUTHOR AUTHOR'S ORGANIZ ATION 05/26/2022 [facility] DATE CREATED AUTHOR AUTHOR'S ORGANIZ ATION 08/15/2023 [facility] DATE CREATED AUTHOR AUTHOR'S ORGANIZ ATION 11/27/2024 [facility] DATE CREATED AUTHOR AUTHOR'S ORGANIZ ATION 12/07/2024 [facility] DATE CREATED AUTHOR AUTHOR'S ORGANIZ ATION 12/08/2024 [facility] EPIC REASON FOR VISIT (unrecogniz ed section and content) ReasonCommentsGynecologic ExamReasonCommentsGynecologic ExamPt present today for annual visit.InfertilityPt present today to discuss infertility issue. Patient states she has not had a period since May 2024 and has taken tests and all come back negative.ReasonCommentsFollow-upReasonCommentsPainful [place] Patient Care team informatio n (unrecognized section and content) Team MemberRelationshipSpecialtyStart DateEnd Date Gaye Dill MD [address] [place] [phone] PCP - GeneralFamily Medicine07/19/22 Team Status: Active Member Role Status Dates Gaye Dill MD Primary Care Provider Active Team Status: Inactive Member Role Status Dates Gaye Dill MD Primary Care Provide r, Attending Provider Active Start: April 23, 2023 End: April 23, 2023 Team Status: Active Member Role Status Dates Gaye Dill MD Primary Care Provider Active Start: April 26, 2023 Charlene NairAttregan ProviderActiveStart: April 26, 2023 Team Status: Inactive Member Role Status [...] Provider Active Start: March 04, 2024 La BERTIN MockAttending ProviderActiveStart: March 04, 2024 Team Status: Inactive Member Role Status Dates Gaye Dill MD Primary Care Provide r, Attending Provider Active Start: March 06, 2024 End: March 06, 2024Team MemberRelationshipSpecialtyStart DateEnd Date Gaye Dill MD PCP - GeneralFamily Medicine07/19/22Team MemberRelationshipSpecialtyStart DateEnd Date Gaye Dill MD [address] [facility] [place] [address] PCP - GeneralFamily Medicine07/19/22Team MemberRelationshipSpecialtyStart DateEnd Date Gaye Dill MD [address] [facility] [place] [address] PCP - GeneralFamily Medicine07/19/22Team MemberRelationshipSpecialtyStart DateEnd Date Gaye Dill MD [address] [facility] [place] [address] PCP - GeneralFamily Medicine07/19/22Team MemberRelationshipSpecialtyStart DateEnd Date Gaye Dill MD [address] [facility] [place] [phone] PCP - [facility]07/19/22Te MemberRelationshipSpecialtyStart DateEnd Date Gaye Dill MD [address] [facility] [place] [address] PCP - [facility]07/19/22Te MemberRelationshipSpecialtyStart DateEnd Date Gaye Dill MD [address] [facility] [place] [address] [facility] - [facility]07/19/22Te MemberRelationshipSpecialtyStart DateEnd Date Gaye Dill MD [address] [facility] [place] [address] [facility]07/19/22Te MemberRelationshipSpecialtyStart DateEnd Date Gaye Dill MD [address] [facility] [place] [phone] PCP - [facility]07/19/22 Goals (unrecognized section and content) Goals may [...] BE BASED ON THE PRIMARY CLINICAL RECORDS. [facility] provides no warranty or guarantee of the accuracy or completeness of information in this document.
--- OUTSIDE RECORDS SUMMARY | 2024-12-11 20:37 | XMS_ITS | Clinical Summary ---
Author Organization [facility] Address [address] [place] [address] Care Team Providers Care Communication Engineer Name Role Phone Leticia Young MD Primary Care Provider [phone] Allergies Active AllergyReactionsCriticalityNoted DateCommentsCodeineHives,Other,RashLow 08/12/2018 Other Reaction(s): Hyperactivity Other Reaction(s): Unknown Other Reaction(s): puffy et itchy Medications MedicationSigDispense QuantityRefillsLast FilledStart DateEnd DateStatus labetalol (Normodyne) 100 MG tablet Indications:Secondary hypertensionTake 1 tablet (100 mg) by mouth in the morning and 1 tablet (100 mg) before bedtime. 60 tablet 11009/15/143086/6Active metFORMIN (Glucophage) 500 MG tablet Indications:PCOS (polycystic ovarian syndrome),Insulin resistanceTake 1 tablet (500 mg) by mouth in the morning. Take with meals. 30 tablet 11009/15/761776/6Active NIFEdipine XL (Procardia XL) 30 MG 24 hr tablet Indications:Elevated BP without diagnosis of hypertensionTake 1 tablet (30 mg) by mouth Daily Do not crush, chew, or split. 30 tablet 11010/27/592590/6Active medroxyPROGESTERone (Provera) 10 MG tablet Indications:Abnormal uterine bleeding (AUB)Take 1 tablet (10 mg) by mouth Daily Take 1 tablet by mouth daily 10 tablet 309/755320/6Active venlafaxine XR (Effexor XR) 37.5 MG 24 hr capsule Indications:Anxiety, generalizedTake 1 capsule (37.5 mg) by mouth Daily Do not crush or chew. 30 capsule /20240219/5Active metroNIDAZOLE (Flagyl) 500 MG tablet Indications:BV (bacterial vaginosis)Take 1 tablet (500 mg) by mouth in the morning and 1 tablet (500 mg) before bedtime. Do all this for 7 days. Do not drink alcohol while taking this medication. 14 tablet /5Active letrozole (Femara) 2.5 MG chemo tablet Indications:Female infertilityTake 1 tablet (2.5 mg total) by mouth Daily for 5 days. 5 tablet /5Active Active Problems ProblemNoted DateDiagnosed YkiuHgalpheg77/14/2024dult attention deficit kcksxeii99/09/2023bdominal pain07/27/2022astroesophageal reflux disease 07/27/2022Impacted vdplsae6607/27/20225066Nhuhyghacul05/09/2023idney stone07/27/2022 Mixed anxiety and depressive dyxmsoup72/09/2023Other specified related conditions, unspecified trimester ([facility])07/27/2022elvic and perineal pain 07/27/2022Syncope and basssbla21/09/2023Vaginal jrhvujhcc64/09/2023Encounter for vnfrzq6807/27/2022typical chest pain02/01/20229072Lnmwrdjrm79/15/2022 Overview (07/27/2022): Last Assessment & Plan: -she saidthis resolved with medication but it was stopped per her neurologist -follow up as scheduled with neurologist group -continue to monitor heart rate and blood pressure during events and daily CELAYA (dyspnea on exertion)02/01/2022 Overview (07/27/2022): Last Assessment & Plan: -due to her age I suspect this is likely related to lack of endurance or exercise tolerane -we discussed lifestyle changes and adding an exercise regimen to her routie Crmwtjrkibyy60/15/2022 Overview (07/27/2022): Last Assessment & Plan: -she states they happen frequently so I will order a holter monitor for now -she may need loop recorder Encounters DateTypeDepartmentCare KyzxBsuiljvsveu20/22/2025Telephone [facility] [address] [place] [address] Mark SteeleserraCache [place]unction, [place] 12/09/2024bstract [facility] [address] [place] [address] Mark SteeleserratSULL[place], [place] 12/09/2024Telephone [facility] [address] [place] [address] Mark Ste[place]at, [place] 12/07/2024 2:20 PM EDTOffice Visit [facility] [address] [place] [address] Ramy Gar, Pain in female genitalia on intercourse; Pelvic pain in female; Anxiety, avassrywdre51/20/2025External Result Encounter [facility] Unsolicited Ramy Gar, DO 12/07/2024amboo flowsheet [facility] [address] [place] [address] Ramy Gar, 11/30/2024Telephone [facility] [address] [place] [address] Ramy Gar, 10/27/2024 2:10 PM EDTOffice Visit [facility] [address] [place] [address] Ramy Gar, Elevated BP without diagnosis of hypertension; Abnormal uterine bleeding (AUB)10/27/2024amboo flowsheet [facility] [address] [place] [address] Ramy Gar, DO 09/15/2024 10:50 AM EDTOffice Visit [facility] [address] [place] [address] Ramy Gar DO PCOS (polycystic ovarian syndrome); Amenorrhea; Secondary hypertension ; Insulin rgyvytdlog98/29/2025amboo flowsheet [facility] [address] [place] [address] Ramy Gar DO from Last 3 Months Family History Medical HistoryRelationNameCommentsDiabetesMaternal GrandmotherHypertension Maternal GrandmotherDepressionMotherHypertensionMotherMigrainesMotherDiabetes Paternal GrandmotherRelationNameStatusCommentsDaughterAliveMaternal Grandmother MotherPaternal Grandmother Social History Tobacco UseTypesPacks/DayYears UsedDateSmoking Tobacco: NeverSmokeless Tobacco: Never Tobacco Cessation:Counseling Given: Not Answered Alcohol UseStandard Drinks/WeekCommentsNever0 (1 standard drink = 0.6 oz pure alcohol)CommentsNoSex and Gender InformationValueDate RecordedSex Assigned at BirthNot on fileLegal VasGggbfb70/15/2023 6:52 PM EDTGender Identity Not on fileSexual OrientationNot on file Last Filed Vital Signs Vital SignReadingTime TakenCommentsBlood Nqjkfiac517/7612/07/2024 2:34 PM EDT Pulse--Temperature--Respiratory Rate--Oxygen Saturation--Inhaled Oxygen Concentration--Gocuxp122 kg (225 lb)12/07/2024 2:34 PM TKABuxnhe386 cm (5' 3 ) 12/07/2024 2:34 PM EDTBody Mass Index39.8612/07/2024 2:34 PM EDT Plan of Treatment DateTypeDepartmentCare Team (Latest Contact Info)Xtiligjjtis05/19/2025 2:20 PM ESTOffice Visit [facility] [address] [place] [address] Ramy Gar DO [address] [place], [place] [id number] Procedures Procedure NamePriorityDate/TimeAssociated DiagnosisCommentsRECURRENT VAGINITIS (HTRX)Mwhdtlk4012/07/2024 4:37 PM EDT POCT , ITOXBUmdlauj74/20/2025 2:47 PM EDT Pelvic pain in female POCT URINALYSIS YVWFXDGOBmosffx76/20/2025 2:44 PM EDT Pelvic pain in female from Last 3 Months Results * (ABNORMAL) RECURRENT VAGINITIS (HTRX) (12/07/2024 4:37 PM EDT)ComponentValue Ref RangeTest MethodAnalysis TimePerformed AtPathologist SignatureATOPOBIUM ROUPOCX53.127(A)19.961 - 24.689 ppm12/09/2024 6:46 AM EDTHealthTrackRx at LabPutnam County HospitalATOPOBIUM VAGINAEDetected(A)19.961 - 24.689 ppm12/09/2024 6:46 AM EDT [facility] CenterBVAB 2,3 (BACTERIAL VAGINOSIS ASSOCIATED BACTERIA 2, 3); MOBILUNCUS KWA109.961 - 24.689 ppm12/09/2024 6:46 AM EDTHealthTrackRx at LabPutnam County HospitalBVAB 2,3 (BACTERIAL VAGINOSIS ASSOCIATED BACTERIA 2, 3); MOBILUNCUS SPP Not Mmaqrydh44.961 - 24.689 ppm12/09/2024 6:46 AM EDTHealthTrackRx at [facility]Put[facility] JOHANNY ALBICANS, PARAPSILOSIS, BMZHDJLUEI559.000 - 30.347 ppm12/09/2024 6:46 AM EDTHealthTrackRx at [facility] CenterCANDIDA ALBICANS, PARAPSILOSIS, TROPICALISNot Eyarjlnl33.000 - 30.347 ppm12/09/2024 6:46 AM EDTHealthTrackRx at LabPort JOHANNY NFUMHGHJ285.000 - 31.618 ppm12/09/2024 6:46 AM EDTHealthTrackRx at [facility] CenterCANDIDA GLABRATANot Lgsozojn29.000 - 31.618 ppm12/09/2024 6:46 AM EDT [facility] LabPortCANDIDA MFORIK524.000 - 30.873 ppm12/09/2024 6:46 AM EDTHealthTrackRx at LabPortCANDIDA KRUSEINot Cwwmavvq29.000 - 30.873 ppm 12/09/2024 6:46 AM EDTHealthTrackRx at LabPortCHLAMYDIA JXJJECZPUOJ739.000 - 31.586 ppm12/09/2024 6:46 AM EDTHealthTrackRx at LabPortCHLAMYDIA TRACHOMATIS Not Ipvcieng32.000 - 31.586 ppm12/09/2024 6:46 AM EDTHealthTrackRx at LabPort GARDNERELLA OGIDTHPWU477.961 - 24.689 ppm12/09/2024 6:46 AM EDTHealthTrackRx at LabPortGARDNERELLA VAGINALISNot Bzmudhgm05.961 - 24.689 ppm12/09/2024 6:46 AM EDTHealthTrackRx at LabPortMEGASPHAERA (TYPES 1, 2)019.961 - 24.689 ppm 12/09/2024 6:46 AM EDTHealthTrackRx at LabPortMEGASPHAERA (TYPES 1, 2)Not Hzxtnkve82.961 - 24.689 ppm12/09/2024 6:46 AM EDTHealthTrackRx at LabPort NEISSERIA KWUCIPBMEQH816.000 - 32.587 ppm12/09/2024 6:46 AM EDTHealthTrackRx at LabPortNEISSERIA GONORRHOEAENot Kzbsmkdq40.000 - 32.587 ppm12/09/2024 6:46 AM EDTHealthTrackRx at LabPortTRICHOMONAS EOOOHROWZ436.000 - 31.995 ppm 12/09/2024 6:46 AM EDTHealthTrackRx at LabPortTRICHOMONAS VAGINALISNot Rhdxkvsq28.000 - 31.995 ppm12/09/2024 6:46 AM EDTHealthTrackRx at LabPort MYCOPLASMA NKAXVDYLLP231.961 - 24.689 ppm12/09/2024 6:46 AM EDTHealthTrackRx at LabPortMYCOPLASMA GENITALIUMNot Rvylhvyy33.961 - 24.689 ppm12/09/2024 6:46 AM EDTHealthTrackRx at [facility] CenterSpecimen (Source)Anatomical Location / LateralityCollection Method / VolumeCollection TimeReceived TimeTissue 12/07/2024 4:37 PM EDT1 1:27 AM EDT Narrative Authorizing ProviderResult TypeResult StatusCorelul Gar DOLAB BLOOD ORDERABLES Final ResultPerforming OrganizationAddressCity/State/ZIP CodePhone Number [facility] [address] [address] * POCT , urine manually resulted (12/07/2024 2:47 PM EDT)ComponentValue Ref RangeTest MethodAnalysis TimePerformed AtPathologist SignaturePreg Test, UrNegativeNegativeSpecimen (Source)Anatomical Location / LateralityCollection Method / VolumeCollection TimeReceived SqejKaamf31/20/2025 2:47 PM EDT Narrative Authorizing ProviderResult TypeResult StatusCorelul Gar DOPOINT OF CARE TEST ENTER/EDIT ORDERABLESFinal Result [...] Location / LateralityCollection Method / VolumeCollection TimeReceived BlvyNljzv77/20/2025 2:44 PM EDT Narrative Authorizing ProviderResult TypeResult StatusCorey Cong DOPOINT OF CARE TEST ENTER/EDIT ORDERABLESFinal Result from Last 3 Months Insurance Care Teams Team MemberRelationshipSpecialtyStart DateEnd Date Leticia Young MD [address] [place] [address] PCP - GeneralFamily Medicine07/19/22
--- OUTSIDE RECORDS SUMMARY | 2024-12-11 20:37 | XMS_ITS | Encounter Summary ---
Author Organization [facility] Address [id number] [place] [address] Care Team Providers Care Transplant Worker Name Role Phone Leticia Young MD Primary Care Provider [phone] Encounter Details DateTypeDepartmentCare Team (Latest Contact Info)Ayptxdzymky51/19/2025Travel Social History Tobacco UseTypesPacks/DayYears UsedDateSmoking Tobacco: FormerCigarettes Smokeless Tobacco: NeverAlcohol UseStandard Drinks/WeekCommentsYes0 (1 standard drink = 0.6 oz pure alcohol)rarelyChildcareAnswerDate RecordedChildcareUnknown 07/30/2018EmploymentAnswerDate XzlwahveQzifvgjnubTszmspv50/12/2019Hunger ScreeningAnswerDate RecordedWithin the past 12 months we worried whether our food would run out before we got money to buy more.Never True12/06/2024Within the past 12 months the food we bought just didn't last and we didn't have money to get more.Never True12/06/2024CommentsNoSex and Gender Information ValueDate RecordedSex Assigned at BirthNot on fileLegal GqhQsihhj60/06/2015 12:04 PM EDTGender IdentityNot on fileSexual OrientationNot on filedocumented as of this encounter Plan of Treatment Not on file documented as of this encounter Visit Diagnoses Not on filedocumented in this encounter Care Teams Team MemberRelationshipSpecialtyStart DateEnd Date Leticia Young MD [address] [place] [address] PCP - GeneralFamily Medicine05/30/24documented as of this encounter
--- OUTSIDE RECORDS SUMMARY | 2024-12-11 20:37 | XMS_ITS | Clinical Summary ---
Author Organization [facility] Address [address] [place] [address] Care Team Providers Care Paving Contractor Name Role Phone Leticia Young MD Primary Care Provider [phone] Allergies Active AllergyReactionsCriticalityNoted WrduAkgowbsoEtlbehdMvomg55/25/2019 Medications MedicationSigDispense QuantityRefillsLast FilledStart DateEnd DateStatus amphetamine-dextroamphetamine XR (Adderall XR) 15 mg 24 hr capsule Take 15 mg by mouth 2 times daily. Do not crush or chew.Active oxybutynin (Ditropan) 5 mg tablet Take 5 mg by mouth in the morning and at bedtime.Active metoprolol succinate XL (Toprol-XL) 25 mg 24 hr tablet Take 25 mg by mouth in the morning. Do not crush or chew.Active tamsulosin (Flomax) 0.4 mg 24 hr capsule Take 0.4 mg by mouth in the morning.Active topiramate (Topamax) 25 mg tablet Take 25 mg by mouth in the morning and at bedtime.Active famotidine (Pepcid) 20 mg tablet Take 20 mg by mouth at bedtime.Active SUMAtriptan (Imitrex) 100 mg tablet Take 100 mg by mouth 2 times daily.Active carvedilol (Coreg) 6.25 mg tablet Indications:Essential hypertensionTake 1 tablet (6.25 mg) by mouth with breakfast and with evening meal. 180 tablet 4Active Active Problems ProblemNoted DateDiagnosed RakeHqtlhrljo76/15/2022 Assessment & Plan (02/02/2022 11:45 PM EST): -she said this resolved with medication but it was stopped per her neurologist -follow up as scheduled with neurologist group -continue to monitor heart rate and blood pressure during events and daily Gvexdkyktclk25/15/2022 Assessment & Plan (02/02/2022 11:43 PM EST): -she states they happen frequently so I will order a holter monitor for now -she may need loop recorder Atypical chest pain02/01/2022OE (dyspnea on exertion)02/01/2022 Assessment & Plan (02/02/2022 11:42 PM EST): -due to her age I suspect this is likely related to lack of endurance or exercise tolerane -we discussed lifestyle changes and adding an exercise regimen to her zully Family History Medical HistoryRelationNameCommentsHeart attackMaternal GrandfatherStroke Maternal GrandfatherHeart attackMaternal GrandmotherHypertensionMotherRelation NameStatusCommentsMaternal GrandfatherMaternal GrandmotherMother Social History Tobacco UseTypesPacks/DayYears UsedDateSmoking Tobacco: NeverPassive Smoke Exposure: Current Tobacco Cessation:Counseling Given: Not Answered Alcohol UseStandard Drinks/WeekCommentsNot Currently0 (1 standard drink = 0.6 oz pure alcohol)UT Safety & EnvironmentAnswerDate RecordedFear of Current or Ex-PartnerNot on file04/11/2023Emotionally AbusedNot on file04/11/2023hysically AbusedNot on file04/11/2023Sexually AbusedNot on file04/11/2023hysically or Sexually AbusedNot on file04/11/2023CommentsUnknownSex and Gender InformationValueDate RecordedSex Assigned at BirthNot on fileLegal SexFemale 08/16/2021 10:58 PM EDTGender IdentityNot on fileSexual OrientationNot on file Last Filed Vital Signs Vital SignReadingTime TakenCommentsBlood Gjmcesbs003/9004 11:48 AM EDT Nzity9847 11:48 AM EDTTemperature--Respiratory Qggy967305/28/2023 11:48 AM EDTOxygen Xsusdowmbd44%05/28/2023 11:48 AM EDTInhaled Oxygen Concentration-- Uxifwy79.4 kg (186 lb)02/01/2022 11:11 AM ZBQLetudd545 cm (5' 3 )05/28/2023 11:48 AM EDTBody Mass Index32.9502/01/2022 11:11 AM EST Plan of Treatment Health MaintenanceDue DateLast DoneCommentsDepression Lixoouizw07/20/2014 Varicella Vaccines (1 of 2 - 13+ 2-dose series)2015HPV Vaccines (1 - 3- dose series)2017Meningococcal B Vaccine (1 of 2 - Standard)2018Adult Afhqurz1202/07/2024OVID-19 Vaccine (1 - 2024- season)2024Influenza Vaccine (#1)2024Pap SmearZoster Vaccines (1 of 2) 02/07/2052HIB VaccinesAged OutNo longer eligible based on patient's age to complete this topicIPV VaccinesAged OutNo longer eligible based on patient's age to complete this topicMeningococcal VaccineAged OutNo longer eligible based on patient's age to complete this topicPneumococcal Vaccine: Pediatrics (0 to 5 Years) and At-Risk Patients (6 to 64 Years)Aged OutNo longer eligible based on patient's age to complete this topicRotavirus VaccinesAged OutNo longer eligible based on patient's age to complete this topic Insurance Care Teams Team MemberRelationshipSpecialtyStart DateEnd Date Leticia Young MD [address] [facility] [address] PCP - Ctvanyy61/15/22
--- OUTSIDE RECORDS SUMMARY | 2024-12-11 20:37 | XMS_ITS | Patient Health Record ---
Author Organization [facility] [place] Address [address] [place] [address] Care Team Providers Care Ampoule Washing Machine Operator Name Role Phone Leticia Young Primary Care Provider Unavailabl e Allergies Allergen (clinical drug ingredient) Drug/Non Drug Allergy documented on EMR Reaction Allergy Type Onset Date Status codeine Codeine Unknown Drug Allergy Active Reason For Referral No Information Medications Medication SIG (Take, Route, Frequency, Duration) Notes Start Date End Date Status Magnesium 200 MG 2 tablets with a meal Orally On ce a day 10/17/2023ctiveAdderall 20 MG1 tablet Orally Twice a day10/17/2023ctive Labetalol HCl 100 MGOral; Duration: 30 DaysActive Social History Tobacco Use: Social History Observation Description Date Details (start date - stop date) Never Smoker NA - NA Tobacco Control (Standard) Question Answer Notes Tobacco use: Nonsmoker Problems Problem Type SNOMED Code ICD Code Onset Dates Problem Status W/U Status Risk Notes Problem 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
--- OUTSIDE RECORDS SUMMARY | 2024-12-11 20:38 | XMS_ITS | Encounter Summary ---
Author Organization [facility] Address [address] [facility] [place] [address] Care Team Providers Care Virtual Office Assistant Name Role Phone Leticia Young MD Primary Care Provider [phone] Encounter Details DateTypeDepartmentCare Team (Latest Contact Info)Lsinfujicxn17/22/2025bstract [facility] [address] [place] [address] Zee Steele MA Social History Tobacco UseTypesPacks/DayYears UsedDateSmoking Tobacco: NeverSmokeless Tobacco: NeverAlcohol UseStandard Drinks/WeekCommentsNever0 (1 standard drink = 0.6 oz pure alcohol)CommentsNoSex and Gender InformationValueDate RecordedSex Assigned at BirthNot on fileLegal TodXacckq56/15/2023 6:52 PM EDTGender Identity Not on fileSexual OrientationNot on filedocumented as of this encounter Plan of Treatment DateTypeDepartmentCare Team (Latest Contact Info)Wdpljbmiped99/19/2025 2:20 PM ESTOffice Visit [facility] [address] [place] [address] Ramy Gar DO [address] [place] [id number] documented as of this encounter Visit Diagnoses Not on filedocumented in this encounter Care Teams Team MemberRelationshipSpecialtyStart DateEnd Date Leticia Young MD [address] [place] [address] PCP - GeneralFamily Medicine07/19/22documented as of this encounter
--- OUTSIDE RECORDS SUMMARY | 2024-12-11 20:38 | XMS_ITS | Clinical Summary ---
Author Organization [employer] Address [id number] [address] [place] [address] Care Team Providers Care College President Name Role Phone Leticia Young MD Primary Care Provider [phone] Allergies Active AllergyReactionsCriticalityNoted FghqQvjrcnikZvwyckuGktic84/25/2019 Medications MedicationSigDispense QuantityRefillsLast FilledStart DateEnd DateStatus ondansetron ODT (ZOFRAN ODT) 4 mg disintegrating tablet Dissolve 1 tablet (4 mg total) on tongue 3 (three) times a day as needed for nausea for up to 3 doses. 3 tablet 5Active famotidine (PEPCID) 20 mg tablet Take 1 tablet (20 mg total) by mouth in the morning and 1 tablet (20 mg total) before bedtime. 20 tablet 5Active hmgzqtgige-kwsksyaxchgjp-dgla (FIORICET, ESGIC) 50-325-40 mg per tablet Take 1 tablet by mouth every 4 (four) hours as needed for headaches. 30 tablet Discontinued ondansetron ODT (ZOFRAN ODT) 4 mg disintegrating tablet Dissolve 1 tablet (4 mg total) on tongue every 8 (eight) hours as needed for nausea for up to 10 doses. 10 tablet /Discontinued labetaloL (NORMODYNE) 100 mg tablet Take 1 tablet (100 mg total) by mouth in the morning.12/06/2024Discontinued amphetamine-dextroamphetamine XR (ADDERALL XR) 20 mg 24 hr capsule Take 1 capsule (20 mg total) by mouth in the morning and at bedtime. Max Daily Amount: 40 mg12/06/2024Discontinued Encounters DateTypeDepartmentCare RnwrJklbsxqizpc70/19/2025 7:39 PM EDT - 12/06/2024 9:13 PM [facility] [address] [place] [address] Robert Cavazos MD Gastroenteritis (Primary Dx) Discharge Disposition: Home12/06/20242308Zavkkv78/14/2025 10:31 AM EDT - 11/01/2024 11:[facility] [address] [place] [address] Viraj Ware MD Uncontrolled hypertension (Primary Dx) Discharge Disposition: Home11/01/2024Travelfrom Last 3 Months Social History Tobacco UseTypesPacks/DayYears UsedDateSmoking Tobacco: FormerCigarettes Smokeless Tobacco: Never Tobacco Cessation:Counseling Given: Not Answered Alcohol UseStandard Drinks/WeekCommentsYes0 (1 standard drink = 0.6 oz pure alcohol)rarelyChildcareAnswerDate QxagkwuwVbariwcqmKqajbif75/12/2019Employment AnswerDate MqrmhhrrKwsugblxopVtleluo50/12/2019Hunger ScreeningAnswerDate RecordedWithin the past 12 months we worried whether our food would run out before we got money to buy more.Never True12/06/2024Within the past 12 months the food we bought just didn't last and we didn't have money to get more.Never True12/06/2024CommentsNoSex and Gender InformationValueDate RecordedSex Assigned at BirthNot on fileLegal HhnXwalcq15/06/2015 12:04 PM EDTGender IdentityNot on fileSexual OrientationNot on file Last Filed Vital Signs Vital SignReadingTime TakenCommentsBlood Kolmyepq115/9512/06/2024 9:00 PM EDT Jacyo911312/06/2024 9:00 PM MGRNihkqvegcpz68.8 ??C (98.2 ??F)12/06/2024 7:46 PM EDTRespiratory Wxqy9347 7:46 PM EDTOxygen Yrlqhrkogt17%12/06/2024 9:00 PM EDTInhaled Oxygen Concentration--Dtuqvy950 kg (227 lb)12/06/2024 7:46 PM EDT Fdfggv680 cm (5' 3 )12/06/2024 7:46 PM EDTBody Mass Index40.211 7:46 PM EDT Plan of Treatment Health MaintenanceDue DateLast DoneCommentsDepression Cwejrkgtj48/20/2014dult BMI Follow Up Plan02/07/2020Influenza Uskdqcz9610/19/2024DTaP,Tdap and Td Vaccines (7 - Tdap)509/, 10/09/2007, 09/27/2005, Additional history existsAdult BMI Galgkilhn12/19/430457Tobacco Qrjaodbsw59/19/2026 12/06/2024Pap Smear807/03/2024, 03/19/2023 Medical Devices Not on file Procedures Procedure NamePriorityDate/TimeAssociated DiagnosisCommentsPOCT , URINE (NUCG)Kgmfvpk4712/06/2024 8:21 PM EDT POCT NURSING URINE MACROSCOPIC DRJvdtirt31/19/2025 8:19 PM EDT ZJNBARAH62/19/2025 8:06 PM EDT PROTIME & UUABDEX1412/06/2024 8:06 PM EDT WAQRNMFZLU08/19/2025 8:06 PM EDT COMPREHENSIVE METABOLIC MHPJGAVAG33/19/2025 8:06 PM EDT CBC WITH AUTO BTTRMJDHZVUMESLR26/19/2025 8:06 PM EDT ER EXTRA URINE DWGIYSHSLR13/19/2025 8:06 PM EDT ER EXTRA URINE XRTZQRBFZAT04/19/2025 8:06 PM EDT ER EXTRA XTDBRGUFA46/19/2025 8:06 PM EDT POCT , URINE (NUCG)Mruqtfb4511/01/2024 11:18 AM EDT POCT NURSING URINE MACROSCOPIC WMFjdsmse20/14/2025 11:17 AM EDT ER EXTRA RDMWRGVZZ02/14/2025 11:16 AM EDT BASIC METABOLIC BRXKWOMGP58/14/2025 10:50 AM EDT CBC WITH AUTO VUULJGKJLFRXVQTR33/14/2025 10:50 AM EDT EXTRA TUBES BLUE APXQmvemxs28/14/2025 10:49 AM EDT EXTRA QJFNPQigpgxh38/14/2025 10:49 AM EDT from Last 3 Months Results * POCT , urine (12/06/2024 8:21 PM EDT) Only the most recent of2 resultswithin the time period is included. ComponentValueRef RangeTest MethodAnalysis TimePerformed AtPathologist Signature POC Urine PregnancyNegativeNegative, Iewrpbprmwrcn80/19/2025 8:26 PM EDT [facility]ENTERpecimen (Source)Anatomical Location / LateralityCollection Method / VolumeCollection TimeReceived BpugNnukm62/19/2025 8:21 PM EDT1 8:26 PM EDT Narrative Authorizing ProviderResult TypeResult StatusPajonas Cavazos MDPOINT OF CARE TEST ORDERABLESFinal ResultPerforming OrganizationAddressCity/State/ZIP CodePhone Number [facility] [address] [place] [address], * (ABNORMAL) POCT Nursing Urine Macroscopic UA (12/06/2024 8:19 PM EDT) Only the most recent of2 resultswithin the time period is included. ComponentValueRef RangeTest MethodAnalysis TimePerformed AtPathologist Signature POC Urine Specific [place]>=1.030(A)1.010, 1.015, 1.020, 1.3387012/06/2024 8:20 PM [facility] Urine Leukocyte EsteraseNegative Hiwrpjms27/19/2025 8:20 PM ED[facility] Urine NaqqejzLdccivocTilygpxp16/19/2025 8:20 PM [facility] POC Urine pH6.05.0, 6.0, 6.5, 7.0, 7.5, 8.0, 8.5, 5. 8:20 PM EDT [facility] Urine Tedmwuw452 mg/dL(A)Negative 12/06/2024 8:20 PM ED[facility] Urine Glucose FsluolzkVkytmmqm85/19/2025 8:20 PM [facility] Urine Hbbmsso28 mg/dL(A)Vvyblgwq44/19/2025 8:20 PM [facility] Urine Urobilinogen0.2 E.U./dL12/06/2024 8:20 PM [facility] Urine BilirubinSmall(A)Qmhzyxbe95/19/2025 8:20 PM EDT [facility] Urine Blood/HGBTrace(A)Smgysifx70/19/2025 8:20 PM [facility] (Source)Anatomical Location / LateralityCollection Method / VolumeCollection TimeReceived TimeUrine 12/06/2024 8:19 PM EDT1 8:20 PM EDT Narrative Authorizing ProviderResult TypeResult StatusPajonas Cavazos MDPOINT OF CARE TEST ORDERABLESFinal ResultPerforming OrganizationAddressCity/State/ZIP CodePhone Number [facility] [address] [facility] [place] [address], [place] * Extra Urine [place] (12/06/2024 8:06 PM EDT)ComponentValueRef RangeTest Method Analysis TimePerformed AtPathologist SignatureExtra TubeAuto Resulted 12/06/2024 10:01 PM EDTPPark[facility] (Source) Anatomical Location / LateralityCollection Method / VolumeCollection Time Received TimeUrineUrine specimen collection, clean catch / Dnkvrol1912/06/2024 8:06 PM EDT1 9:34 PM EDT Narrative Authorizing ProviderResult TypeResult StatusRobert ARRIAZA ORDERABLES Final ResultPerforming OrganizationAddressCity/State/ZIP CodePhone Number [address] [place] [address], [place] * Extra Urine Culture (12/06/2024 8:06 PM EDT)ComponentValueRef RangeTest Method Analysis TimePerformed AtPathologist SignatureExtra TubeAuto Resulted 12/06/2024 10:01 PM EDEast [facility] (Source) Anatomical Location / LateralityCollection Method / VolumeCollection Time Received TimeUrineUrine specimen collection, clean catch / Jitvxlq4312/06/2024 8:06 PM EDT1 9:34 PM EDT Narrative Authorizing ProviderResult TypeResult Morena ARRIAZA ORDERABLES Final ResultPerforming OrganizationAddressCity/State/ZIP CodePhone Number [address] [place] [address], [place] * Extra Urine (12/06/2024 8:06 PM EDT) Only the most recent of2 resultswithin the time period is included. ComponentValueRef RangeTest MethodAnalysis TimePerformed AtPathologist Signature Extra TubeAuto Edtgfrkt86/19/2025 10:01 PM EDTPParkview Health [facility] (Source)Anatomical Location / LateralityCollection Method / VolumeCollection TimeReceived TimeUrineUrine specimen collection, clean catch / Ljvlneb5412/06/2024 8:06 PM EDT1 9:34 PM EDT Narrative Authorizing ProviderResult TypeResult StatusRobert ARRIAZA ORDERABLES Final ResultPerforming OrganizationAddressCity/State/ZIP CodePhone Number [facility] [address] [place] [address], * (ABNORMAL) CBC auto differential (12/06/2024 8:06 PM EDT) Only the most recent of2 resultswithin the time period is included. ComponentValueRef RangeTest MethodAnalysis TimePerformed AtPathologist Signature WBC11.7(H)4 - 11 x10E9/L1 8:26 PM EDTPGENESIS HOSPITALRBC Count4.933.8 - 5.2 X10E12/L1 8:26 PM EDTPGENESIS HOSPITALHemoglobin14.911.7 - 15.5 g/dL12/06/2024 8:26 PM EDTPGENESIS HOSPITALHematocrit43.735 - 47 %12/06/2024 8:26 PM EDTPGENESIS HOSPITALMCV8980 - 100 fL12/06/2024 8:26 PM EDTPGENESIS HOSPITALMCH30.327 - 34 pg12/06/2024 8:26 PM EDTPGENESIS HOSPITALMCHC34.232 - 36 g/dL12/06/2024 8:26 PM EDTPGENESIS HOSPITALRDW13.611.5 - 15 %12/06/2024 8:26 PM EDTPGENESIS HOSPITALPlatelet Ibnmz769528 - 450 X10E9/L1 8:26 PM EDT [facility]ITALMPV9.47 - 12 fL12/06/2024 8:26 PM EDT [facility]ITALNeutrophils %70.9%12/06/2024 8:26 PM EDT [facility]ITALLymphocytes %21.0%12/06/2024 8:26 PM EDT [facility]ITALMonocytes %6.3%12/06/2024 8:26 PM EDT [facility]ITALEosinophils %0.9%12/06/2024 8:26 PM EDT [facility]ITALBasophils %0.9%12/06/2024 8:26 PM EDT [facility]ITALNeutrophils Absolute (A)8.3(H)1.5 - 6.6 10*3/uL12/06/2024 8:26 PM EDACCESS [facility]OSPITAL DAYTONLymphocytes Absolute2.51.0 - 3.5 10*3/uL12/06/2024 8:26 PM EDTPGENESIS HOSPITALMonocytes Absolute0.70.0 - 0.9 10*3/uL12/06/2024 8:26 PM EDTPGENESIS HOSPITALEosinophils Absolute0.10.0 - 0.4 10*3/uL12/06/2024 8:26 PM EDACCESS HOSPITAL DAYTONBasophils Absolute0.10.0 - 0.2 10*3/uL 12/06/2024 8:26 PM EDACCESS HOSPITAL DAYTONDifferential Type AUTOMATED DGONFYFCXDKV35/19/2025 8:26 PM [facility] Specimen (Source)Anatomical Location / LateralityCollection Method / Volume Collection TimeReceived TimeBloodVenous blood / Lnwqkti6412/06/2024 8:06 PM EDT 12/06/2024 8:18 PM EDT Narrative Authorizing ProviderResult TypeResult StatusRobert LEE BLOOD ORDERABLES Final ResultPerforming OrganizationAddressCity/State/ZIP CodePhone Number [facility] [address] [place] [address], * APTT (12/06/2024 8:06 PM EDT)ComponentValueRef RangeTest MethodAnalysis Time Performed AtPathologist RwpukkkkaDFSU9915 - 37 sec12/06/2024 8:33 PM EDT [facility]ENTERpecimen (Source)Anatomical Location / LateralityCollection Method / VolumeCollection TimeReceived TimeBloodVenous blood / Zvabkda4812/06/2024 8:06 PM EDT1 8:18 PM EDT Narrative Authorizing ProviderResult TypeResult StatusRobert LEE BLOOD ORDERABLES Final ResultPerforming OrganizationAddressty/State/ZIP CodePhone Number [address] [place] [address], [place] * Protime & INR (12/06/2024 8:06 PM EDT)ComponentValueRef RangeTest Method Analysis TimePerformed AtPathologist KmgffatyhCREUIRH30.09.8 - 13.2 sec 12/06/2024 8:33 PM EDTPGENESIS HOSPITALINR1.10.9 - 1.2 12/06/2024 8:33 PM EDEast [facility] (Source) Anatomical Location / LateralityCollection Method / VolumeCollection Time Received TimeBloodVenous blood / Xnlyilm5712/06/2024 8:06 PM EDT1 8:18 PM EDT Narrative Authorizing ProviderResult TypeResult StatusRobert LEE BLOOD ORDERABLES Final ResultPerforming OrganizationAddressCity/State/ZIP CodePhone Number [address] [place] [address], [place] * Lipase (12/06/2024 8:06 PM EDT)ComponentValueRef RangeTest MethodAnalysis Time Performed AtPathologist WgialruovSHLIWZ3861 - 40 U/L1 8:38 PM EDT [facility] (Source)Anatomical Location / LateralityCollection Method / VolumeCollection TimeReceived TimeBloodVenous blood / Gfypkyq6012/06/2024 8:06 PM EDT1 8:17 PM EDT Narrative Authorizing ProviderResult TypeResult StatusRobert LEE BLOOD ORDERABLES Final ResultPerforming OrganizationAddGood Shepherd Specialty Hospitalty/State/ZIP CodePhone Number [address] [place] [address], [place] * (ABNORMAL) Comprehensive metabolic panel (12/06/2024 8:06 PM EDT)Component ValueRef RangeTest MethodAnalysis TimePerformed AtPathologist SignatureSODIUM 065518 - 146 mmol/L1 8:40 PM EDTPGENESIS HOSPITAL POTASSIUM3.3(L)3.5 - 5.0 mmol/L1 8:40 PM [facility] CENTERCHLORIDE10498 - 109 mmol/L1 8:40 PM [facility] CENTERCARBON FRMZQWP95(L)22 - 32 mmol/L1 8:40 PM [facility]ENTERANION FWO166 - 15 mmol/L1 8:40 PM [facility] CENTERBLOOD UREA TTVGVCSA752 - 23 mg/dL 12/06/2024 8:40 PM [facility] CENTERCREATININE0.840.40 - 1.00 mg/dL12/06/2024 8:40 PM [facility] CENTERComment: METHOD TRACEABLE TO IDMS WLHTQOPZSQFQZEB504(H)65 - 99 mg/dL12/06/2024 8:40 PM [facility] CENTERCALCIUM9.08.5 - 10.5 mg/dL12/06/2024 8:40 PM [facility] CENTERTOTAL PROTEIN7.86.0 - 8.0 g/dL 12/06/2024 8:40 PM [facility] CENTERALBUMIN4.63.2 - 5.3 g/dL12/06/2024 8:40 PM [facility]ENTERALKALINE OJPCQSOERGR4441 - 130 U/L1 8:40 PM [facility]ENTERAST33<=41 U/L1 8:40 PM [facility] ALT62(H)<=31 U/L1 8:40 PM [facility] BILIRUBIN,TOTAL1.10.3 - 1.2 mg/dL12/06/2024 8:40 PM [facility]ICAL CENTEREGFR Non-Race Dependent>90>=60 ml/min/1.73sq.m1 8:40 PM [facility] CENTERComment: eGFR not reported due to non-numeric value for Creatinine. Reported eGFR is based on the CKD-EPI 2020 equation that does not use a race coefficient. Specimen (Source)Anatomical Location / LateralityCollection Method / Volume Collection TimeReceived TimeBloodVenous blood / Cxoftjm4212/06/2024 8:06 PM EDT 12/06/2024 8:17 PM EDT Narrative Authorizing ProviderResult TypeResult StatusRobert LEE BLOOD ORDERABLES Final ResultPerforming OrganizationAddressCity/State/ZIP CodePhone Number [facility] [address] [facility] [place] [address], * (ABNORMAL) Basic Metabolic Panel (11/01/2024 10:50 AM EDT)ComponentValueRef RangeTest MethodAnalysis TimePerformed AtPathologist LcezninljPZZEXA475456 - 146 mmol/L11/01/2024 11:09 AM [facility] CENTERPOTASSIUM 4.03.5 - 5.0 mmol/L11/01/2024 11:09 AM [facility] YHOMMMGP41367 - 109 mmol/L11/01/2024 11:09 AM [facility] CENTERCARBON ADBLHKO2255 - 32 mmol/L11/01/2024 11:09 AM [facility]ENTERANION GAP75 - 15 mmol/L11/01/2024 11:09 AM [facility] CENTERBLOOD UREA FSOKCZCA435 - 23 mg/dL11/01/2024 11:09 AM [facility] CENTERCREATININE0.710.40 - 1.00 mg/dL 11/01/2024 11:09 AM [facility] CENTERComment:METHOD TRACEABLE TO IDMS SAUBYPCZZYPXHQX372(H)65 - 99 mg/dL11/01/2024 11:09 AM EDT [facility]ITALCALCIUM8.4(L)8.5 - 10.5 mg/dL11/01/2024 11:09 AM [facility] CENTEREGFR Non-Race Dependent>90>=60 ml/min/1.73sq.m011/01/2024 11:09 AM [facility] Comment: eGFR not reported due to non-numeric value for Creatinine. Reported eGFR is based on the CKD-EPI 2020 equation that does not use a race coefficient. Specimen (Source)Anatomical Location / LateralityCollection Method / Volume Collection TimeReceived TimeBloodVenous blood / UnknownVenipuncture / Unknown 11/01/2024 10:50 AM EDT11/01/2024 10:51 AM EDT Narrative Authorizing ProviderResult TypeResult StatusDahoney LEE BLOOD ORDERABLESFinal ResultPerforming OrganizationAddressCity/State/ZIP CodePhone Number [address] [place] [address], * Light Blue Top (11/01/2024 10:49 AM EDT)ComponentValueRef RangeTest Method Analysis TimePerformed AtPathologist SignatureExtra TubeAuto Resulted 11/01/2024 12:01 PM EDTPROMEDSCRIPPS GREEN HOSPITALpecimen (Source) Anatomical Location / LateralityCollection Method / VolumeCollection Time Received TimeBloodVenous blood / Wgfsrnq7611/01/2024 10:49 AM EDT11/01/2024 10:52 AM EDT Narrative Authorizing ProviderResult TypeResult StatusViraj LEE BLOOD ORDERABLESFinal ResultPerforming OrganizationAddressClermont County Hospital/State/ZIP CodePhone Number [address] [address], from Last 3 Months Insurance Care Teams Team MemberRelationshipSpecialtyStart DateEnd Date Leticia Young MD [address] [place] [place] [id number] PCP - GeneralFamily Medicine05/30/24
--- OUTSIDE RECORDS SUMMARY | 2024-12-11 20:38 | XMS_ITS | Encounter Summary ---
Author Organization [facility] Address [address] [place] [address] Care Team Providers Care Cable Assembler And Swager Name Role Phone Leticia Young MD Primary Care Provider Encounter Details DateTypeDepartmentCare Team (Latest Contact Info)Mzzzrtujnmn58/20/2025External Result Encounter [facility] External Department Unsolicited Ramy Gar, DO [address] [place], [place] [id number] Social History Tobacco UseTypesPacks/DayYears UsedDateSmoking Tobacco: NeverSmokeless Tobacco: NeverAlcohol UseStandard Drinks/WeekCommentsNever0 (1 standard drink = 0.6 oz pure alcohol)CommentsNoSex and Gender InformationValueDate RecordedSex Assigned at BirthNot on fileLegal TxfWqcqeo39/15/2023 6:52 PM EDTGender Identity Not on fileSexual OrientationNot on filedocumented as of this encounter Plan of Treatment DateTypeDepartmentCare Team (Latest Contact Info)Ikrzhtmmtwo13/19/2025 2:20 PM ESTOffice Visit [facility] [place] [facility] [address] [place] [phone] Ramy Gar [address] [place], [place] [phone] documented as of this encounter Procedures Procedure NamePriorityDate/TimeAssociated DiagnosisCommentsRECURRENT VAGINITIS (HTRX)Aisyvrn9612/07/2024 4:37 PM EDT documented in this encounter Results * (ABNORMAL) RECURRENT VAGINITIS (HTRX) (12/07/2024 4:37 PM EDT)ComponentValue Ref RangeTest MethodAnalysis TimePerformed AtPathologist SignatureATOPOBIUM XLNTFQK28.127(A)19.961 - 24.689 ppm12/09/2024 6:46 AM EDTHealthTrackRx at LabPortATOPOBIUM VAGINAEDetected(A)19.961 - 24.689 ppm12/09/2024 6:46 AM EDT [facility] LabInd[facility] University HospitalBVAB 2,3 (BACTERIAL VAGINOSIS ASSOCIATED BACTERIA 2, 3); MOBILUNCUS FPX178.961 - 24.689 ppm12/09/2024 6:46 AM EDTHealthTrackRx at LabMemorial Hospital of Lafayette CountyAB 2,3 (BACTERIAL VAGINOSIS ASSOCIATED BACTERIA 2, 3); MOBILUNCUS SPP Not Hsrvrdcu33.961 - 24.689 ppm12/09/2024 6:46 AM EDTHealthTrackRx at LabPort JOHANNY ALBICANS, PARAPSILOSIS, UZEDVOJDAJ259.000 - 30.347 ppm12/09/2024 6:46 AM EDTHealthTrackRx at LabIndiana University Health University HospitalCANDIDA ALBICANS, PARAPSILOSIS, TROPICALISNot Ekuntuhy57.000 - 30.347 ppm12/09/2024 6:46 AM EDTHealthTrackRx at LabPort JOHANNY UANHBCII603.000 - 31.618 ppm12/09/2024 6:46 AM EDTHealthTrackRx at LabPortCANDIDA GLABRATANot Pmsiqtkc26.000 - 31.618 ppm12/09/2024 6:46 AM EDT [facility] at LabPortCANDIDA HRCFEI048.000 - 30.873 ppm12/09/2024 6:46 AM EDTHealthTrackRx at LabPortCANDIDA KRUSEINot Izkbiqxm57.000 - 30.873 ppm 12/09/2024 6:46 AM EDTHealthTrackRx at LabPortCHLAMYDIA CLMGEODDHQI665.000 - 31.586 ppm12/09/2024 6:46 AM EDTHealthTrackRx at LabPortCHLAMYDIA TRACHOMATIS Not Jqmzrdea64.000 - 31.586 ppm12/09/2024 6:46 AM EDTHealthTrackRx at LabPort GARDNERELLA RJHBOSUIQ512.961 - 24.689 ppm12/09/2024 6:46 AM EDTHealthTrackRx at LabIndiana University Health University HospitalGARDNERELLA VAGINALISNot Jbzkursj55.961 - 24.689 ppm12/09/2024 6:46 AM EDTHealthTrackRx at LabPortMEGASPHAERA (TYPES 1, 2)019.961 - 24.689 ppm 12/09/2024 6:46 AM EDTHealthTrackRx at LabPortMEGASPHAERA (TYPES 1, 2)Not Xeparrtg12.961 - 24.689 ppm12/09/2024 6:46 AM EDTHealthTrackRx at [facility] NEISSERIA HTCYWWKNYJI702.000 - 32.587 ppm12/09/2024 6:46 AM EDTHealthTrackRx at [facility] HospitalNEISSERIA GONORRHOEAENot Lycepgay23.000 - 32.587 ppm12/09/2024 6:46 AM EDTHealthTrackRx at LabPortTRICHOMONAS ZKFKSCSVV434.000 - 31.995 ppm 12/09/2024 6:46 AM EDTHealthTrackRx at LabIndiana University Health University HospitalTRICHOMONAS VAGINALISNot Xpyrwukg30.000 - 31.995 ppm12/09/2024 6:46 AM EDTHealthTrackRx at LabInd[facility] Hospital MYCOPLASMA PWBBDXPELB306.961 - 24.689 ppm12/09/2024 6:46 AM EDTHealthTrackRx at LabIndiana University Health University HospitalMYCOPLASMA GENITALIUMNot Wexokpkb98.961 - 24.689 ppm12/09/2024 6:46 AM EDTHealthTrackRx at LabPortSpecimen (Source)Anatomical Location / LateralityCollection Method / VolumeCollection TimeReceived TimeTissue 12/07/2024 4:37 PM EDT1 1:27 AM EDT Narrative Authorizing ProviderResult TypeResult StatusCorey Cong DOLAB BLOOD ORDERABLES Final ResultPerforming OrganizationAddressCity/State/ZIP CodePhone Number [facility] at LabShelly [facility] [id number] [place] [address] documented in this encounter Visit Diagnoses Not on filedocumented in this encounter Care Teams Team MemberRelationshipSpecialtyStart DateEnd Date Leticia Young MD [address] [place] [phone] PCP - GeneralFamily Medicine07/19/22documented as of this encounter
--- OUTSIDE RECORDS SUMMARY | 2024-12-11 20:38 | XMS_ITS | Encounter Summary ---
Author Organization [facility] Address [address] [place] [address] Care Team Providers Care Hotel Maid Name Role Phone Leticia Young MD Primary Care Provider [phone] Encounter Details DateTypeDepartmentCare Team (Latest Contact Info)Mwhpoynwtwc85/20/2025amboo flowsheet [facility] [place] [place] [address] Ramy Gar DO [address] [place], [place] [address] Social History Tobacco UseTypesPacks/DayYears UsedDateSmoking Tobacco: NeverSmokeless Tobacco: NeverAlcohol UseStandard Drinks/WeekCommentsNever0 (1 standard drink = 0.6 oz pure alcohol)CommentsNoSex and Gender InformationValueDate RecordedSex Assigned at BirthNot on fileLegal TdhVhplte04/15/2023 6:52 PM EDTGender Identity Not on fileSexual OrientationNot on filedocumented as of this encounter Plan of Treatment DateTypeDepartmentCare Team (Latest Contact Info)Rpngwqpeltf10/19/2025 2:20 PM ESTOffice Visit [facility]a ARMENDAR[facility] [address] [address] Ramy Gar DO [address] [place], [place] [phone] documented as of this encounter Visit Diagnoses Not on filedocumented in this encounter Care Teams Team MemberRelationshipSpecialtyStart DateEnd Date Leticia Young MD [address] [facility] [place] [address] PCP - GeneralFamily Medicine07/19/22documented as of this encounter
--- OUTSIDE RECORDS SUMMARY | 2024-12-11 20:38 | XMS_ITS | Encounter Summary ---
Author Organization [facility] Address [address] [place] [address] Care Team Providers Care Stencil Sprayer Name Role Phone Leticia Young MD Primary Care Provider [phone] Encounter Details DateTypeDepartmentCare Team (Latest Contact Info)Acuqzfdtcmv86/22/2025Telephone [facility] ARMENDARIZ [address] [place] [address] Zee Steele MA Social History Tobacco UseTypesPacks/DayYears UsedDateSmoking Tobacco: NeverSmokeless Tobacco: NeverAlcohol UseStandard Drinks/WeekCommentsNever0 (1 standard drink = 0.6 oz pure alcohol)CommentsNoSex and Gender InformationValueDate RecordedSex Assigned at BirthNot on fileLegal XuqUeherz66/15/2023 6:52 PM EDTGender Identity Not on fileSexual OrientationNot on filedocumented as of this encounter Miscellaneous Notes * Telephone Encounter - Zee Steele MA - 12/09/2024 9:03 AM EDT Pt called and notified of results and provided appropriate tx. PVU documented in this encounter Plan of Treatment DateTypeDepartmentCare Team (Latest Contact Info)Bjfavcqssqb37/19/2025 2:20 PM ESTOffice Visit [facility] IBRAHIMGYN [address] [place] [address] Ramy Gar DO [address] [place], [place] [id number] documented as of this encounter Visit Diagnoses Diagnosis BV (bacterial vaginosis) Unspecified vaginitis and vulvovaginitis documented in this encounter Care Teams Team MemberRelationshipSpecialtyStart DateEnd Date Leticia Young MD [address] [place] [id number] PCP - GeneralFamily Medicine07/19/22documented as of this encounter
--- OUTSIDE RECORDS SUMMARY | 2024-12-11 20:38 | XMS_ITS | Encounter Summary ---
Author Organization [facility] Address [address] [place] [address] Care Team Providers Care English Language Learner Teacher Name Role Phone Leticia Young MD Primary Care Provider [phone] Encounter Details DateTypeDepartmentCare Team (Latest Contact Info)Ckpbvmiwogk06/13/2025Telephone [facility] [address] [address] Ramy Gar DO [address] [address] [address] [place], [facility] Social History Tobacco UseTypesPacks/DayYears UsedDateSmoking Tobacco: NeverSmokeless Tobacco: NeverAlcohol UseStandard Drinks/WeekCommentsNever0 (1 standard drink = 0.6 oz pure alcohol)CommentsNoSex and Gender InformationValueDate RecordedSex Assigned at BirthNot on fileLegal CfhFpvanm83/15/2023 6:52 PM EDTGender Identity Not on fileSexual OrientationNot on filedocumented as of this encounter Miscellaneous Notes * Telephone Encounter - Katlyn Sol LPN - 11/30/2024 3:58 PM EDT Patient was called back and advised Dr would like to have patient come into office to be seen. PVU and she was transferred to clerical to schedule. * Telephone Encounter - Katlyn Sol LPN - 11/30/2024 2:34 PM EDT Patient called the office and left a voicemail she states she was trying to have intercourse and started cramping and felt something push back there was no blood. Patient states has not had and periods but did have spotting last month and does remember taking this out. Patient states does not feel like anything there. Patient is asking for meds to be sent in and she was advised they are at pharmacy she can call them and ask for them to be filled. PVU and advised would reach back out to her. documented in this encounter Plan of Treatment DateTypeDepartmentCare Team (Latest Contact Info)Ayuthylvozq44/19/2025 2:20 PM ESTOffice Visit [facility] [address] [address] Ramy Gar DO [address] [facility] [address] [place], [place] [id number] documented as of this encounter Visit Diagnoses Not on filedocumented in this encounter Care Teams Team MemberRelationshipSpecialtyStart DateEnd Date Leticia Young MD [address] [facility] [place] [phone] PCP - GeneralFamily Medicine07/19/22documented as of this encounter
--- OUTSIDE RECORDS SUMMARY | 2024-12-11 20:38 | XMS_ITS | Encounter Summary ---
Author Organization [facility] Address [address] [place] [place] [address] Care Team Providers Care Director Of Placement Name Role Phone Leticia Young MD Primary Care Provider Encounter Details DateTypeDepartmentCare Team (Latest Contact Info)Ybbhbrlmkda77/22/2025Telephone [facility] ARMENDARIZ [address] [place] [address] Zee Steele MA Social History Tobacco UseTypesPacks/DayYears UsedDateSmoking Tobacco: NeverSmokeless Tobacco: NeverAlcohol UseStandard Drinks/WeekCommentsNever0 (1 standard drink = 0.6 oz pure alcohol)CommentsNoSex and Gender InformationValueDate RecordedSex Assigned at BirthNot on fileLegal EtyHcwzjm31/15/2023 6:52 PM EDTGender Identity Not on fileSexual OrientationNot on filedocumented as of this encounter Miscellaneous Notes * Telephone Encounter - Zee Steele MA - 12/09/2024 12:21 PM EDT Pt called in stating started cycle today. States had discussed Starting femara with next cycle. Advised pt on timed intercourse and when to have 21 day progesterone drawn. PVU documented in this encounter Plan of Treatment DateTypeDepartmentCare Team (Latest Contact Info)Cuyrswtazoa11/19/2025 2:20 PM ESTOffice Visit [facility] ARMENDARIZ [address] [place] [address] Ramy Gar DO [address] [facility] [place] [address] documented as of this encounter Visit Diagnoses Diagnosis Female infertility Female infertility of unspecified origin documented in this encounter Care Teams Team MemberRelationshipSpecialtyStart DateEnd Date Leticia Young MD [address] [facility] [place] [address] PCP - GeneralFamily Medicine07/19/22documented as of this encounter
--- NOTE | 2024-12-11 20:45 | ECG_ITS ---
The [facility] Test Date: 2024-12-11 Pat Name: ABHI RYDER Department: Room: - Gender: Female Resident Care Manager: : 2000 Requested By: [id number] Order Number: [id number] Reading MD: LONG MARTINEZ M.D. Measurements Intervals Coker Rate: 69 P: 46 WY: 154 QRS: 59 QRSD: 82 T: 19 QT: 418 QTc: 438 Interpretive Statements 1100 Sinus rhythm 1108 Marked sinus arrhythmia 9130 borderline ECG Compared to ECG 11/07/2018 12:21:50 No significant changes Electronically Signed On 12-12-2024 7:02:20 EDT by LONG MARTINEZ M.D.
--- NOTE | 2024-12-11 20:53 | ED.GENADUL1 ---
Documented by User: DAKSHA HARDIN 12/12/24 14:59 HPI HPI - General Adult General Chief complaint: Anxiety Stated complaint: Anxiety Time Seen by Provider: 12/11/24 20:45 Source: patient Mode of arrival: walk-in Limitations: no limitations History of Present Illness HPI narrative: Patient presents to the emergency department with a 1 week history of persistent nausea and vomiting, nervousness, anxiousness, skin crawling and an episode of near syncope today. Patient states that she had woken up from a nap and had stood up and was going to walk to the bathroom when she became lightheaded and dizzy and felt as if she was going to pass out, though she did not actually pass out. Patient did recently start venlafaxine 3 days ago for the anxiety however she states no improvement in her anxiety. Patient denies any chest or abdominal pain. Related Data Home Medications ?Medication ?Instructions ?Recorded ?Confirmed dextroamphetamine-amphetamine 15 15 mg PO BID 01/22/23 01/22/23 mg tablet Previous Rx's ?Medication ?Instructions ?Recorded ketorolac 10 mg tablet 10 mg PO TID PRN pain #10 tabs 01/23/23 ondansetron 4 mg disintegrating 4 mg PO Q6H PRN nausea and 01/23/23 tablet vomiting #12 tabs ondansetron 4 mg disintegrating 4 mg PO Q8H PRN nausea and 03/09/24 tablet vomiting #10 tabs Allergies Allergy/AdvReac Type Severity Reaction Status Date / Time codeine Allergy Severe Hives Verified 12/11/24 20:45 Review of Systems ROS Status of ROS 10 or more systems reviewed and unremarkable except as noted in history and below Constitutional Denies: fever Cardiovascular Reports: palpitations; Denies: chest pain Gastrointestinal Reports: nausea and vomiting Psychiatric Reports: anxiety PFSH PFS Medical History History of kidney stones ?Z87.442 - Personal history of urinary calculi (ICD-10) Social History Smoking status: Unknown if ever smoked Little interest or pleasure in doing things: not at all Feeling down, depressed, or hopeless: not at all Exam Constitutional Vital Signs, click to edit/add: Last Vital Signs Temp 98.3 F 12/11/24 20:34 Pulse 59 L 12/11/24 20:34 Resp 18 12/11/24 20:34 BP 164/102 H 12/11/24 20:34 Pulse Ox 98 12/11/24 20:34 O2 Del Method Room Air 12/11/24 20:34 Common normals: no apparent distress, average body habitus, oriented x3 and alert General appearance: anxious HENMT Common normals: normocephalic Eye Common normals: PERRL Respiratory Common normals: normal respiratory effort Cardio Common normals: regular rate and regular rhythm GI Common normals: Normal to inspection, nondistended, normoactive bowel sounds present, soft to palpation and non-tender Course Vital Signs Vital signs: Vital Signs Temperature 98.3 F 12/11/24 20:34 Pulse Rate 59 L 12/11/24 20:34 Respiratory Rate 18 12/11/24 20:34 Blood Pressure 164/102 H 12/11/24 20:34 Pulse Oximetry 98 12/11/24 20:34 Oxygen Delivery Method Room Air 12/11/24 20:34 Temperature 98.3 F 12/11/24 20:34 Pulse Rate 59 L 12/11/24 20:34 Respiratory Rate 18 12/11/24 20:34 Blood Pressure 164/102 H 12/11/24 20:34 Pulse Oximetry 98 12/11/24 20:34 Oxygen Delivery Method Room Air 12/11/24 20:34 Medical Decision Making Lab Data Labs: Lab Results 12/11/24 12/11/24 Range/Units 21:08 23:05 WBC 9.5 (4.0-11.0) 10^3/uL RBC 4.71 (4.20-5.40) 10^6/uL Hgb 14.7 (12.0-16.0) g/dL Hct 42.6 (36.0-48.0) % MCV 90.4 (81.0-99.0) fL MCH 31.2 (26.7-34.0) pg MCHC 34.5 (29.9-35.2) g/dL RDW 12.3 (11.0-15.0) % Plt Count 233 (150-450) 10^3/uL MPV 11.2 (9.5-13.5) fL Neut % (Auto) 67.2 (43.0-75.0) % Lymph % (Auto) 24.4 (20.5-60.0) % [place] % (Auto) 7.1 (1.7-12.0) % Eos % (Auto) 0.6 L (0.9-7.0) % Baso % (Auto) 0.5 (0.2-2.0) % Neut # (Auto) 6.4 (1.4-6.5) 10^3/uL Lymph # (Auto) 2.3 (1.2-3.8) 10^3/uL [place] # (Auto) 0.7 (0.3-0.8) 10^3/uL Eos # (Auto) 0.1 (0.0-0.7) 10^3/uL Baso # (Auto) 0.1 (0.0-0.1) 10^3/uL Abs Immat Gran (auto) 0.02 (0.00-0.03) 10^3/uL Imm/Tot Granulo (auto) 0.2 (0.0-0.5) % D-Dimer 0.27 (<=0.59) mg/L FEU Sodium 142 (136-145) mmol/L Potassium 3.4 L (3.5-5.1) mmol/L Chloride 106 (98-107) mmol/L Carbon Dioxide 23.3 (21.0-32.0) mmol/L Anion Gap 16.1 BUN 14.0 (7.0-18.0) mg/dL Creatinine 0.87 (0.55-1.02) mg/dL Est GFR ( Amer) >60 (>=60 mL/min/1.73m^2) Est GFR (Non-Af Amer) >60 (>=60 mL/min/1.73m^2) BUN/Creatinine Ratio 16.1 Glucose 111 H (74-106) mg/dL Lactate 0.9 (0.4-2.0) mmol/L Calcium 8.7 (8.5-10.1) mg/dL Total Bilirubin 0.6 (0.2-1.0) mg/dL AST 50 H (15-37) U/L ALT 110 H (14-59) U/L Alkaline Phosphatase 68 (46-116) U/L Troponin I High Sens 9.2 (4.0-51.3) pg/mL Total Protein 7.4 (6.4-8.2) g/dL Albumin 4.2 (3.4-5.0) g/dL Globulin 3.2 g/dL Albumin/Globulin Ratio 1.3 Lipase 31.0 (16.0-77.0) U/L Urine Color Lt. yellow (YELLOW) Urine Clarity Clear (CLEAR) Urine pH 6.5 (5.0-9.0) Ur Specific Reading <=1.005 A (1.005-1.025) Urine Protein Negative (NEG/TRACE) mg/dL Urine Glucose (UA) Negative (NEGATIVE) mg/dL Urine Ketones Negative (NEGATIVE) mg/dL Urine Occult Blood Moderate A (NEGATIVE) Urine Nitrite Negative (NEGATIVE) Urine Bilirubin Negative (NEGATIVE) Urine Urobilinogen 0.2 (0.2-1.0) EU/dL Ur Leukocyte Esterase Negative (NEGATIVE) Urine RBC 0-2 (0-2) #/HPF Urine WBC 0-2 A (NONE SEEN) #/HPF Ur Squamous Epith Cells Rare (NONE/RARE) #/LPF Urine Crystals None seen (None Seen) #/HPF Urine Bacteria None seen (NONE SEEN) #/HPF Urine Casts None seen (NONE SEEN) #/LPF Urine Mucus None seen (NONE SEEN) Ur Culture Indicated? No Discharge Plan Discharge Chief Complaint: Anxiety Clinical Impression: Acute anxiety Patient Disposition: Home, Self-Care Prescriptions / Home Meds: No Action dextroamphetamine-amphetamine 15 mg tablet 15 mg PO BID ketorolac 10 mg tablet 10 mg PO TID PRN (Reason: pain) Qty: 10 0RF ondansetron 4 mg tablet,disintegrating 4 mg PO Q6H PRN (Reason: nausea and vomiting) Qty: 12 0RF ondansetron 4 mg tablet,disintegrating 4 mg PO Q8H PRN (Reason: nausea and vomiting) Qty: 10 0RF Print Language: Spanish Instructions: Anxiety (ED) Referrals: Leticia Young MD [Primary Care Provider, Family Practice] - 1 week Discharge Date/Time: 12/11/24 23:33 Documented by User: Cristian Lock MD 12/12/24 20:22 HPI HPI - General Adult General Chief complaint: Anxiety Stated complaint: Anxiety Time Seen by Provider: 12/11/24 20:45 Related Data Home Medications ?Medication ?Instructions ?Recorded ?Confirmed dextroamphetamine-amphetamine 15 15 mg PO BID 01/22/23 01/22/23 mg tablet Previous Rx's ?Medication ?Instructions ?Recorded ketorolac 10 mg tablet 10 mg PO TID PRN pain #10 tabs 01/23/23 ondansetron 4 mg disintegrating 4 mg PO Q6H PRN nausea and 01/23/23 tablet vomiting #12 tabs ondansetron 4 mg disintegrating 4 mg PO Q8H PRN nausea and 03/09/24 tablet vomiting #10 tabs Allergies Allergy/AdvReac Type Severity Reaction Status Date / Time codeine Allergy Severe Hives Verified 12/11/24 20:45 PFSH PFSH Medical History History of kidney stones ?Z87.442 - Personal history of urinary calculi (ICD-10) Social History Smoking status: Unknown if ever smoked Little interest or pleasure in doing things: not at all Feeling down, depressed, or hopeless: not at all Exam Constitutional Vital Signs, click to edit/add: Last Vital Signs Temp 98.3 F 12/11/24 20:34 Pulse 59 L 12/11/24 20:34 Resp 18 12/11/24 20:34 BP 164/102 H 12/11/24 20:34 Pulse Ox 98 12/11/24 20:34 O2 Del Method Room Air 12/11/24 20:34 Course Vital Signs Vital signs: Vital Signs Temperature 98.3 F 12/11/24 20:34 Pulse Rate 59 L 12/11/24 20:34 Respiratory Rate 18 12/11/24 20:34 Blood Pressure 164/102 H 12/11/24 20:34 Pulse Oximetry 98 12/11/24 20:34 Oxygen Delivery Method Room Air 12/11/24 20:34 Temperature 98.3 F 12/11/24 20:34 Pulse Rate 59 L 12/11/24 20:34 Respiratory Rate 18 12/11/24 20:34 Blood Pressure 164/102 H 12/11/24 20:34 Pulse Oximetry 98 12/11/24 20:34 Oxygen Delivery Method Room Air 12/11/24 20:34 Medical Decision Making MDM Narrative Medical decision making narrative: care transferred at change of shift. Patient presents with anxiety. CT abdomen pending and is without acute findings. Patient given dose of Vistaril and advise to continue Effexor and to follow up with her doctor next week. Provided a prescription for hydroxyzine prn Lab Data Labs: Lab Results 12/11/24 12/11/24 Range/Units 21:08 23:05 WBC 9.5 (4.0-11.0) 10^3/uL RBC 4.71 (4.20-5.40) 10^6/uL Hgb 14.7 (12.0-16.0) g/dL Hct 42.6 (36.0-48.0) % MCV 90.4 (81.0-99.0) fL MCH 31.2 (26.7-34.0) pg MCHC 34.5 (29.9-35.2) g/dL RDW 12.3 (11.0-15.0) % Plt Count 233 (150-450) 10^3/uL MPV 11.2 (9.5-13.5) fL Neut % (Auto) 67.2 (43.0-75.0) % Lymph % (Auto) 24.4 (20.5-60.0) % [place] % (Auto) 7.1 (1.7-12.0) % Eos % (Auto) 0.6 L (0.9-7.0) % Baso % (Auto) 0.5 (0.2-2.0) % Neut # (Auto) 6.4 (1.4-6.5) 10^3/uL Lymph # (Auto) 2.3 (1.2-3.8) 10^3/uL [place] # (Auto) 0.7 (0.3-0.8) 10^3/uL Eos # (Auto) 0.1 (0.0-0.7) 10^3/uL Baso # (Auto) 0.1 (0.0-0.1) 10^3/uL Abs Immat Gran (auto) 0.02 (0.00-0.03) 10^3/uL Imm/Tot Granulo (auto) 0.2 (0.0-0.5) % D-Dimer 0.27 (<=0.59) mg/L FEU Sodium 142 (136-145) mmol/L Potassium 3.4 L (3.5-5.1) mmol/L Chloride 106 (98-107) mmol/L Carbon Dioxide 23.3 (21.0-32.0) mmol/L Anion Gap 16.1 BUN 14.0 (7.0-18.0) mg/dL Creatinine 0.87 (0.55-1.02) mg/dL Est GFR ( Amer) >60 (>=60 mL/min/1.73m^2) Est GFR (Non-Af Amer) >60 (>=60 mL/min/1.73m^2) BUN/Creatinine Ratio 16.1 Glucose 111 H (74-106) mg/dL Lactate 0.9 (0.4-2.0) mmol/L Calcium 8.7 (8.5-10.1) mg/dL Total Bilirubin 0.6 (0.2-1.0) mg/dL AST 50 H (15-37) U/L ALT 110 H (14-59) U/L Alkaline Phosphatase 68 (46-116) U/L Troponin I High Sens 9.2 (4.0-51.3) pg/mL Total Protein 7.4 (6.4-8.2) g/dL Albumin 4.2 (3.4-5.0) g/dL Globulin 3.2 g/dL Albumin/Globulin Ratio 1.3 Lipase 31.0 (16.0-77.0) U/L Urine Color Lt. yellow (YELLOW) Urine Clarity Clear (CLEAR) Urine pH 6.5 (5.0-9.0) Ur Specific Reading <=1.005 A (1.005-1.025) Urine Protein Negative (NEG/TRACE) mg/dL Urine Glucose (UA) Negative (NEGATIVE) mg/dL Urine Ketones Negative (NEGATIVE) mg/dL Urine Occult Blood Moderate A (NEGATIVE) Urine Nitrite Negative (NEGATIVE) Urine Bilirubin Negative (NEGATIVE) Urine Urobilinogen 0.2 (0.2-1.0) EU/dL Ur Leukocyte Esterase Negative (NEGATIVE) Urine RBC 0-2 (0-2) #/HPF Urine WBC 0-2 A (NONE SEEN) #/HPF Ur Squamous Epith Cells Rare (NONE/RARE) #/LPF Urine Crystals None seen (None Seen) #/HPF Urine Bacteria None seen (NONE SEEN) #/HPF Urine Casts None seen (NONE SEEN) #/LPF Urine Mucus None seen (NONE SEEN) Ur Culture Indicated? No Discharge Plan Discharge Chief Complaint: Anxiety Clinical Impression: Acute anxiety Patient Disposition: Home, Self-Care Prescriptions / Home Meds: No Action dextroamphetamine-amphetamine 15 mg tablet 15 mg PO BID ketorolac 10 mg tablet 10 mg PO TID PRN (Reason: pain) Qty: 10 0RF ondansetron 4 mg tablet,disintegrating 4 mg PO Q6H PRN (Reason: nausea and vomiting) Qty: 12 0RF ondansetron 4 mg tablet,disintegrating 4 mg PO Q8H PRN (Reason: nausea and vomiting) Qty: 10 0RF Print Language: Spanish Instructions: Anxiety (ED) Referrals: Leticia Young MD [Primary Care Provider, Family Practice] - 1 week Discharge Date/Time: 12/11/24 23:33
[2024-12-11] MEDS: FAMOTIDINE/PF 20 MG/2 ML VIAL IV (21:23)
[2024-12-11] MEDS: 0.9 % SODIUM CHLORIDE 1,000 ML 1000 ML IV (21:23)
[2024-12-11 21:28] LABS: Hematocrit 42.6 % (36.0-48.0); Hemoglobin 14.7 g/dL (12.0-16.0); Immature Granulocytes Abs Auto 0.02 10^3/uL (0.00-0.03); Immature Granulocytes Pct Auto 0.2 % (0.0-0.5); Lymphocytes Absolute Auto 2.3 10^3/uL (1.2-3.8); Mean Corpuscular HGB Conc 34.5 g/dL (29.9-35.2); Mean Corpuscular Hemoglobin 31.2 pg (26.7-34.0); Mean Corpuscular Volume 90.4 fL (81.0-99.0); Platelet Count 233 10^3/uL (150-450); Red Blood Count 4.71 10^6/uL (4.20-5.40); White Blood Count 9.5 10^3/uL (4.0-11.0)
[2024-12-11 21:42] LABS: Anion Gap 16.1
[2024-12-11 21:45] LABS: Alanine Aminotransferase 110 U/L (14-59); Albumin Globulin Ratio 1.3; Albumin Level 4.2 g/dL (3.4-5.0); Alkaline Phosphatase 68 U/L (46-116); Aspartate Amino Transferase 50 U/L (15-37); Blood Urea Nitrogen 14.0 mg/dL (7.0-18.0); Calcium 8.7 mg/dL (8.5-10.1); Carbon Dioxide 23.3 mmol/L (21.0-32.0); Chloride 106 mmol/L (98-107); Estimated GFR (African America >60 (>=60 mL/min/1.73m^2); Estimated GFR (Non-African Ame >60 (>=60 mL/min/1.73m^2); Globulin 3.2 g/dL; Glucose 111 mg/dL (74-106); Lactate/Lactic Acid 0.9 mmol/L (0.4-2.0); Lipase 31.0 U/L (16.0-77.0); Potassium 3.4 mmol/L (3.5-5.1); Sodium 142 mmol/L (136-145); Total Protein 7.4 g/dL (6.4-8.2)
--- NOTE | 2024-12-11 21:46 | CT_ITS ---
The [address] [address] Patient Name: ABHI RYDER MRN: [id number] date: 2000 Sex: F Assigned Patient Location: ED.MAIN Current Patient Location: ED.MAIN Accession/Order Number: [id number] Exam Date: 12/11/2024 22:07 Report Date: 12/11/2024 22:38 At the request of: JUNIOR CROOKS Procedure: CT abdomen pelvis w con CT ABDOMEN AND PELVIS WITH INTRAVENOUS CONTRAST: CLINICAL HISTORY: abdominal pain into chest, [place] COMPARISON: Abdominal x-ray 04/26/2023 TECHNIQUE: Spiral images were obtained through the abdomen and pelvis following the administration of intravenous contrast. This CT exam was performed using one or more following dose reduction techniques: Automated exposure control, adjustment of the mA and/or kV according to patient size, or use of iterative reconstruction technique. FINDINGS: Lung Bases: [No focal opacity] Organs:Fatty infiltration liver. Gallbladder, spleen, adrenals, kidneys and pancreas unremarkable. Right renal calculi nonobstructive. Left superior pole calculus nonobstructed.. No hydronephrosis.[ GI: Mild retained stool within colon. No bowel obstruction. Colonic diverticulosis. Appendix unremarkable.[ Pelvis:[Bladder unremarkable. Uterus unremarkable. No adnexal mass.] Peritoneum/Retroperitoneum:No free air or free fluid.[Scattered mesenteric lymph nodes noted could be reactive or could raise possibility of mesenteric adenitis, largest measuring 1.7 x 1.3 cm in size.. Abd wall/Bones:Degenerative changes L4-S1. No suspicious osseous lesion.[ CT/CT abdomen pelvis w con IMPRESSION: Negative acute inflammatory process or bowel obstruction. Bilateral renal calculi, nonobstructive. Negative hydronephrosis. Fatty liver. Mild colonic diverticulosis. Impression dictated by: Darnell Sterling M.D. 12/11/2024 10:38 PM Dictation Location: [place] [address] Electronically authenticated by: [id number] Y Date: 12/11/2024 22:38
[2024-12-11] MEDS: HYDROXYZINE PAMOATE 25 MG CAPSULE PO (23:07)
[2024-12-11 23:17] LABS: Glucose Urine UA NEGATIVE (NEGATIVE)
[2024-12-11 23:23] LABS: Cast Seen? NONE SEEN #/LPF (NONE SEEN); Crystals Seen? None Seen #/HPF (None Seen); Urine Culture Indicated NO
== END 2024-12-11 23:33 | disposition home or self-care (01) ==
PROVIDERS: Physician Assistant; Emergency Provider Internal Medicine; PCP Family Medicine
DX: F41.9 Anxiety disorder, unspecified (principal); R11.2 Nausea with vomiting, unspecified
CPT/HCPCS: 36415; 74177; 80053; 81001; 83605; 83690; 84484; 85025; 85378; 93005; 96361; 96374; 96375; 99285; J2405; J3490; Q0177; Q9967